=== PATIENT | male | born 1955 | race Caucasian/White ===

== ENCOUNTER → 2017-12-20 09:21 | Outpatient (CLI) | payer MEDICARE, OTHER, SELFPAY ==
[2017-12-20 10:17] LABS: Microalbumin:Creatinine Ratio 70.7 mg/g CRE (<30 mg/g CRE)
[2017-12-20 10:21] LABS: Hemoglobin A1c 8.9 % (4.2-6.3)
[2017-12-20 10:29] LABS: AST(SGOT) 16 U/L (15-37); Alanine Aminotransfer ALT/SGPT 16 U/L (16-61); Albumin, Serum 3.5 g/dL (3.2-5.0); Alkaline Phosphatase 127 U/L (45-117); Anion Gap 6 (5-15); BUN 17 mg/dL (7-18); BUN/Creat Ratio 17.6 RATIO (10-20); Calcium,Total 8.9 mg/dL (8.5-10.1); Chloride 107 mmol/L (98-107); Cholesterol 164 mg/dL (200); Creatinine, Serum 0.96 mg/dL (0.70-1.30); EST Glomerular Filtration Rate 83 mL/min (>60); Est Glom Filt Rate - Afr Amer 101 mL/min (>60); Globulin 3.6 g/dL (2.2-4.2); Glucose 247 mg/dL (74-106); High Density Lipoprotein 61 mg/dL; Potassium 4.2 mmol/L (3.5-5.1); Protein, Total 7.1 g/dL (6.4-8.2); Sodium Level 140 mmol/L (136-145); Triglycerides 59 mg/dL; Very Low Density Lipoprotein 12 mg/dL (5-40)
== END ==
PROVIDERS: Family Provider Internal Medicine; PCP Internal Medicine; Visit Provider Nurse Practitioner
DX: E11.9 Type 2 diabetes mellitus without complications (principal)
CPT/HCPCS: 36415; 80053; 80061; 82043; 82570; 83036

== ENCOUNTER → 2018-03-23 08:38 | Outpatient (CLI) | payer MEDICARE, OTHER, SELFPAY ==
[2018-03-23 10:00] LABS: Hemoglobin A1c 7.8 % (4.2-6.3)
[2018-03-23 10:03] LABS: Microalbumin,Random Urine 71.1 mg/L (NO RANGE EST.); Microalbumin:Creatinine Ratio 84.6 mg/g CRE (<30 mg/g CRE)
[2018-03-23 10:08] LABS: AST(SGOT) 26 U/L (15-37); Alanine Aminotransfer ALT/SGPT 27 U/L (16-61); Albumin, Serum 3.6 g/dL (3.2-5.0); Alkaline Phosphatase 101 U/L (45-117); Anion Gap 10 (5-15); BUN 16 mg/dL (7-18); BUN/Creat Ratio 20.3 RATIO (10-20); Chloride 106 mmol/L (98-107); Creatinine, Serum 0.79 mg/dL (0.70-1.30); EST Glomerular Filtration Rate 105 mL/min (>60); Est Glom Filt Rate - Afr Amer 127 mL/min (>60); Globulin 3.7 g/dL (2.2-4.2); Glucose 168 mg/dL (74-106); Potassium 4.5 mmol/L (3.5-5.1); Protein, Total 7.3 g/dL (6.4-8.2); Sodium Level 141 mmol/L (136-145)
== END ==
PROVIDERS: Family Provider Internal Medicine; PCP Internal Medicine; Visit Provider Nurse Practitioner
DX: E11.8 Type 2 diabetes mellitus with unspecified complications (principal); Z79.4 Long term (current) use of insulin
CPT/HCPCS: 36415; 80053; 82043; 82570; 83036

== ENCOUNTER → 2018-06-20 08:23 | Outpatient (CLI) | payer MEDICARE, OTHER, SELFPAY ==
[2018-06-20 09:43] LABS: AST(SGOT) 16 U/L (15-37); Alanine Aminotransfer ALT/SGPT 23 U/L (16-61); Albumin, Serum 3.6 g/dL (3.2-5.0); Alkaline Phosphatase 133 U/L (45-117); Anion Gap 4 (5-15); BUN 20 mg/dL (7-18); BUN/Creat Ratio 22.3 RATIO (10-20); Calcium,Total 8.8 mg/dL (8.5-10.1); Chloride 106 mmol/L (98-107); EST Glomerular Filtration Rate 91 mL/min (>60); Est Glom Filt Rate - Afr Amer 110 mL/min (>60); Globulin 3.5 g/dL (2.2-4.2); Glucose 281 mg/dL (74-106); Potassium 4.4 mmol/L (3.5-5.1); Protein, Total 7.1 g/dL (6.4-8.2); Sodium Level 140 mmol/L (136-145)
[2018-06-20 09:44] LABS: Microalbumin,Random Urine 54.2 mg/L (NO RANGE EST.); Microalbumin:Creatinine Ratio 45.5 mg/g CRE (<30 mg/g CRE)
[2018-06-20 09:45] LABS: Hemoglobin A1c 8.5 % (4.2-6.3)
--- OUTSIDE RECORDS SUMMARY | 2018-08-15 08:06 | XMS RPT_ITS ---
:1955 Author Organization OHIP Support Name Relationship Address Phone BRUCE RICHARDS Unavailable [address] + [place] [address] POWER, STEVIE Unavailable [address] + [place] [address] R Unavailable Unavailable Unavailable BRUCE RICHARDS Unavailable [address] + [place] [address] POWER, STEVIE Unavailable [address] + [place] [address] R Unavailable Unavailable Unavailable BRUCE RICHARDS Unavailable [address] + [place] [address] POWER, STEVIE Unavailable [address] + [place] [address] R Unavailable Unavailable Unavailable BRUCE RICHARDS Unavailable [address] + [place] [address] POWER, STEVIE Unavailable [address] + [place] [address] R Unavailable Unavailable Unavailable BRUCE RICHARDS Unavailable [address] + [place] [address] POWER, STEVIE Unavailable [address] + [place] [address] R Unavailable Unavailable Unavailable BRUCE RICHARDS Unavailable [address] + [place] [address] POWER, STEVIE Unavailable [address] + [place] [address] R Unavailable Unavailable Unavailable BRUCE RICHARDS Unavailable [address] + [place] [address] POWER, STEVIE Unavailable [address] + [place] [address] R Unavailable Unavailable Unavailable BRUCE RICHARDS Unavailable [address] + [place] [address] POWER, STEVIE Unavailable [address] [facility] [address] + [place] [address] R Unavailable Unavailable Unavailable Care Team Providers Name Role Phone TALAMPAS, SON D Attending Unavailable TALAMPAS, SON D Referring Unavailable TALAMPAS, SON D Referring Unavailable Talampas, Son Primary Care Unavailable Madrid, Santiago Attending Unavailable Shook, Mildred White ATMOSPHERIC SCIENCES PROFESSOR-C Attending Unavailable Talampas, Son Referring Unavailable Shook, Mildred White ATMOSPHERIC SCIENCES PROFESSOR-C Attending Unavailable Shook, Mildred White ATMOSPHERIC SCIENCES PROFESSOR-C Referring Unavailable Talampas, Son Primary Care Unavailable Shook, Mildred White ATMOSPHERIC SCIENCES PROFESSOR-C Attending Unavailable Talampas, Son Referring Unavailable Shook, Mildred White ATMOSPHERIC SCIENCES PROFESSOR-C Attending Unavailable Shook, Mildred White ATMOSPHERIC SCIENCES PROFESSOR-C Referring Unavailable Talampas, Son Primary Care Unavailable Shook, Mildred hWite ATMOSPHERIC SCIENCES PROFESSOR-C Attending Unavailable Talampas, Son Referring Unavailable Talampas, Son Primary Care Unavailable Shook, Mildred White ATMOSPHERIC SCIENCES PROFESSOR-C Attending Unavailable Shook, Mildred White ATMOSPHERIC SCIENCES PROFESSOR-C Referring Unavailable Talampas, Son Primary Care Unavailable Shook, Mildred White ATMOSPHERIC SCIENCES PROFESSOR-C Attending Unavailable Talampas, Son Referring Unavailable PROBLEMS PROBLEMS DATE TYPE CONDITION / CODE ATTENDING STATUS SOURCE 11/17/2015 Active Type 2 diabetes NA Active [facility] mellitus with other [place] diabetic kidney Repository complication / E11.29(ICD-10) 11/17/2015 Active Proteinuria, NA Active [facility] unspecified / [place] R80.9(ICD-10) Repository 11/17/2015 Active penitentiary (current) NA Active [facility] use of insulin / [place] Z79.4(ICD-10) Repository 06/19/2018 Active Other [facility] [employer] NA Active [facility] (current) drug [place] therapy / Repository Z79.899(ICD-10) 03/13/2018 Unknown E11.9 - Type 2 Mildred Siddiqui Active [place] diabetes mellitus ATMOSPHERIC SCIENCES PROFESSOR-C [facility] complications / Repository E11.9(ICD-10) 07/24/2017 Unknown J20.8 - Acute [place], Santiago Active [place] bronchitis due to [facility] other specified Hospital organisms / Repository J20.8(ICD-10) PROCEDURES PROCEDURES No Procedure Records FoundRESULTS RESULTS PROGRESS Observed: 06/26/2018 Status: COMPLETED Source: [place] 9:03 AM [facility] ID: [id number] Author: Son Yanes Service: (none) Author Type: Physician Type: Progress Notes Filed: 06/30/2018 3:17 PM Note Text: Patient presents with: Recheck Imm/Inj: Flu Vaccine SUBJECTIVE: Jing Richards is a 62 year old year old gentleman here today for 6 month follow up appointment for review of medical conditions. Saw BJ yesterday--HgA1C was up. Sugars at home were up. In summer was riding bicycle a lot. Has membership at [employer]--lately has not been going because of schedule. Past week with lower back pain. Getting a little better. Week prior of gi had done a lot of yardwork. Pain started the following week. Taking ibuprofen then Aleve. PAST MEDICAL HISTORY Diagnosis Date - Benign neoplasm of colon - BPH without obstruction/lower urinary tract symptoms 04/01/2012 - Carpal tunnel syndrome - Degeneration of lumbar or lumbosacral intervertebral disc 05/02/2008 - Essential hypertension, benign - Glaucoma - Hemorrhage of rectum and anus - Hyperplasia of prostate - Pure hypercholesterolemia Gets labs done at [facility] for MIQUEL Siddiqui - Type II or unspecified type diabetes mellitus without mention of complication, uncontrolled Continues to follow with MIQUEL Siddiqui, [facility]/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--gets labs through [facility] - Unspecified glaucoma(365.9) Current Outpatient Prescriptions: enalapril (VASOTEC) 20 mg tablet Take 1 tablet by mouth twice daily. tamsulosin ER (FLOMAX) 0.4 mg cap Take 2 capsules by mouth daily at bedtime. insulin regular human (HUMULIN R REGULAR U-100 INSULN) 100 unit/mL injection Inject 25 Units subcutaneously daily before dinner. (supper) (MIQUEL Siddiqui manages) metoprolol succinate ER (TOPROL XL) 25 mg 24 hr tablet Take 1 tablet by mouth once daily. simvastatin (ZOCOR) 40 mg tablet TAKE ONE TABLET BY MOUTH ONCE DAILY AT BEDTIME Insulin Syringe-Needle U-100 (BD INSULIN SYRINGE UF II) 0.5 mL 31 gauge x 5/16 syrg Use as directed with insulin injections three times daily insulin 70/30 NPH/regular units/mL (HUMULIN 70/30, NOVOLIN 70/30) Inject 35 Units subcutaneously daily with breakfast. (MIQUEL Siddiqui managing) insulin NPH human (NOVOLIN N, HUMULIN N) injection Inject 5 Units subcutaneously daily at bedtime. (MIQUEL Siddiqui manages) albuterol HFA (VENTOLIN HFA) 90 mcg/actuation inhaler Inhale 2 Puffs as instructed every 4 hours as needed for Wheezing/Shortness of Breath. Blood Sugar Diagnostic, Drum (ACCU-CHEK COMPACT TEST) Strp Testing 2-3 times daily lancets(FREESTYLE LANCETS) Use as directed. XALATAN 0.005 % EYE DROPS once daily both eyes COSOPT 2 %-0.5 % EYE DROPS twice daily both eyes ASPIRIN 81 MG TAB Take one (1) tablet daily . COMPOUNDED PRESCRIPTION Insulin syringes 0.3cc 31 G use as directed B COMPLEX CAP take one tablet daily MULTIVITAMIN TAB Take one(1) tablet daily. No current facility-administered medications for this visit. OBJECTIVE: BP 136/58 (BP Site: Left Arm, BP Position: Sitting, BP Cuff Size: Regular Adult) Pulse 68 Resp 12 Wt 81.2 kg (179 lb) SpO2 96% BMI 32.74 kg/m? Patient is alert, oriented times 3, no apparent distress, affect is bright, reactive. Last 5 Encounter BP Readings: Date: BP: 06/26/2018 136/58 07/24/2017 168/83[#1 (from Extended Vitals)[ 06/06/2017 139/64[#6 (from Extended Vitals)[ 05/23/2017 145/75 05/23/2017 150/76 Last 5 Encounter Wt Readings: Date: Wt: 06/26/2018 81.2 kg (179 lb) 05/23/2017 82.6 kg (182 lb 1.6 oz) 05/23/2017 82.6 kg (182 lb 3.2 oz) 05/07/2017 82.1 kg (181 lb) 11/01/2016 83 kg (183 lb) 06/26/18 0835 06/26/18 0920 BP: 136/58 132/60 BP Site: Left Arm BP Position: Sitting BP Cuff Size: Regular Adult Pulse: 68 Resp: 12 SpO2: 96% Weight: 81.2 kg (179 lb) Heart: Regular rate, rhythm, no murmurs, gallops, rubs. Lungs: Clear to auscultation, bilaterally, breathing non labored. Ext: No cyanosis, clubbing, or edema. Feet:Shoes and socks removed, No deformities, ulcers, calluses, normal distal pulses and sensitive to 10 gm monofilament Component Latest Ref Rng AND Units 10/28/2016 05/07/2017 03/23/2018 06/19/2018 Glucose 74 - 99 mg/dL 143 (H) 246 (H) 253 (H) BUN 9 - 24 mg/dL 12 16 15 Creatinine 0.73 - 1.22 mg/dL 0.87 0.81 0.73 Sodium 136 - 144 mmol/L 142 135 (L) 138 Potassium 3.7 - 5.1 mmol/L 5.0 4.6 5.0 Chloride 97 - 105 mmol/L 105 98 102 CO2 22 - 30 mmol/L 25 28 25 Anion Gap 9 - 18 mmol/L 12 9 11 Calcium 8.5 - 10.2 mg/dL 9.7 9.6 9.7 eGFR- >60 >60 >60 eGFR-All Other Races . >60 >60 >60 Triglyceride <150 mg/dL 78 77 Cholesterol, Total <200 mg/dL 186 172 HDL Cholesterol >39 mg/dL 74 60 VLDL Cholesterol <30 mg/dL 16 15 LDL Cholesterol <100 mg/dL 96 97 Fasting Time hrs 10 9 TC:HDL Ratio <5.10 2.51 2.87 LDL:HDL Ratio <2.54 1.30 1.62 Non HDL Cholesterol <130 mg/dL 112 112 Creatinine, Ur Random (UCRR) 20 - 300 mg/dL 56.8 113.0 Albumin, Urine Random 0.0 - 23.0 mg/L 155.1 (H) 48.5 (H) Albumin/Creat Ratio 0 - 30 mg/g 273 (H) 43 (H) Hemoglobin A1C 4.3 - 5.6 % 8.4 (H) 8.7 (H) 7.8 (A) 8.4 (H) Estimated Average Glucose mg/dL 194 203 194 ASSESSMENT AND PLAN: Encounter Diagnosis ICD-10-CM 1. Essential hypertension, benign I10 COMP METABOLIC PANEL CBC 2. Pure hypercholesterolemia E78.00 LIPID PANEL BASIC 3. Type 2 diabetes mellitus with microalbuminuria, with long- term current use of insulin (HCC) E11.29 COMP METABOLIC PANEL R80.9 HGB A1C Z79.4 ALBUMIN/CREAT RATIO RND UR HGB A1C BASIC METABOLIC PNL 4. Acute midline low back pain without sciatica M54.5 improving since week after Thanksgiving 5. Need for vaccination Z23 INFLUENZA VACCINE QUADRIVALENT AGE 3 YRS PLUS + IM Overall doing well. Will get sugars down with getting back to some regular exercise. Keep up healthy diet. Was able to get HgA1C <8 without adjust meds much before--exercise helps control sugars much better. Continues to follow up with Stella Owen CNP. Further evaluation and treatment as indicated. Lipids fine. BP fine <140/90. BP close to ideal goals. Continue present management. Further evaluation and treatment as indicated. Will get refills to correct pharmacy after gets insurance cards. Discussed that does not need to get labs at [facility] and here. Can choose on site. BJ and I can share labs. Above issues addressed with patient. Patient involved in shared decision making for management of medical issues. History and medications reviewed. Epic updated as needed Refills taken care of and meds adjusted as indicated after reviewed history, exam and labs. Health Maintenance reviewed. Updated record and/or ordered tests as recorded. Encouraged on efforts at healthy diet and regular exercise and adequate sleep. The majority of the visit was spent counseling and/or coordinating care for the patient. Ikib-he-rqht time was at least 20 minutes. Son Yanes MD PROGRESS Observed: 06/26/2018 Status: COMPLETED Source: [place] 8:[address] [facility] [place] RE[facility]IT[facility] ID: [id number] Author: Rudy Camarena Service: (none) Author Type: (none) Type: Progress Notes Filed: 06/30/2018 3:17 PM Note Text: 62 year old male here for INACTIVATED INFLUENZA VACCINE. [id number] Season Patient is identified by name and date of : Yes [] CONTRAINDICATIONS color enhanced section Age less than 6 months? No Allergy to eggs, chicken, chicken feathers, or chicken dander? No Allergy to thimerosal (a preservative) or formaldehyde, gelatin? No History of severe reaction to any vaccine component or a previous dose of influenza vaccination? No History of Guillain-[place] Syndrome within 6 weeks after a previous influenza vaccine? No Patient is not moderately or severely ill? No Current temperature greater or equal to 100.4F? No History of Bone Marrow Transplant prior 6 months or solid organ transplant in the past 3 months ? No History of fainting after a prior injection or medical procedure? No- ? If patient has fainted in the past, the CDC recommends sitting or lying down for 15 minutes after the vaccination. [] VERIFICATION color enhanced section Was the answer Yes for any of the above contraindications? No contraindications present. Acceptable to proceed with vaccine. Patient/guardian agrees the above answers are true to the best of their knowledge? Yes Flu vaccine information sheet given? Yes See immunization activity in [facility] for details of immunizations adminstered today. Patient age: [age] year old For The [id number] Flu Season 6-35 months old: Fluzone 0.25 ml - IM (Preservative Free) 3 years of age: Fluzone 0.5 ml - IM (Preservative Free) 3 years and older: Fluzone 0.5 ml- IM-(with Preservatives) 65+ years old: 2-49 years old Fluzone High-Dose 0.5 ml - IM (Preservative Free) FLUMIST- intranasal REMEMBER: If patient is less than 9 years of age and this is the first vaccine of Influenza to be received in any flu season, they should receive a second dose in one months time. CNOV Observed: 06/26/2018 Status: COMPLETED Source: [place] 8:20 AM [facility] REPOSITORY Office Visit (INTMWS) JING RICHARDS ([id number]) 1955 M Date Time Provider Department 06/26/18 8:20 AM SON YANES During your visit today, we recorded the following information about you: Pulse Respiration Blood pressure Weight 68/minute 12/minute 132/60 81.2 kg Rudy Camarena 06/30/2018 3:17 PM Signed 62 year old male here for INACTIVATED INFLUENZA VACCINE. Season Patient is identified by name and date of : Yes [] CONTRAINDICATIONS color enhanced section Age less than 6 months? No Allergy to eggs, chicken, chicken feathers, or chicken dander? No Allergy to thimerosal (a preservative) or formaldehyde, gelatin? No History of severe reaction to any vaccine component or a previous dose of influenza vaccination? No History of Guillain-[place] Syndrome within 6 weeks after a previous influenza vaccine? No Patient is not moderately or severely ill? No Current temperature greater or equal to 100.4F? No History of Bone Marrow Transplant prior 6 months or solid organ transplant in the past 3 months ? No History of fainting after a prior injection or medical procedure? No- ? If patient has fainted in the past, the CDC recommends sitting or lying down for 15 minutes after the vaccination. [] VERIFICATION color enhanced section Was the answer Yes for any of the above contraindications? No contraindications present. Acceptable to proceed with vaccine. Patient/guardian agrees the above answers are true to the best of their knowledge? Yes Flu vaccine information sheet given? Yes See immunization activity in [facility] for details of immunizations adminstered today. Patient age: [age] year old For The Flu Season 6-35 months old: Fluzone 0.25 ml - IM (Preservative Free) 3 years of age: Fluzone 0.5 ml - IM (Preservative Free) 3 years and older: Fluzone 0.5 ml- IM-(with Preservatives) 65+ years old: 2-49 years old Fluzone High-Dose 0.5 ml - IM (Preservative Free) FLUMIST- intranasal REMEMBER: If patient is less than 9 years of age and this is the first vaccine of Influenza to be received in any flu season, they should receive a second dose in one months time. Son Yanes MD 06/30/2018 3:17 PM Signed Patient presents with: Recheck Imm/Inj: Flu Vaccine SUBJECTIVE: Jing Richards is a 62 year old year old gentleman here today for 6 month follow up appointment for review of medical conditions. Saw BJ yesterday--HgA1C was up. Sugars at home were up. In summer was riding bicycle a lot. Has membership at [employer]--lately has not been going because of schedule. Past week with lower back pain. Getting a little better. Week prior of Thanksgiving had done a lot of yardwork. Pain started the following week. Taking ibuprofen then Aleve. PAST MEDICAL HISTORY Diagnosis Date - Benign neoplasm of colon - BPH without obstruction/lower urinary tract symptoms 04/01/2012 - Carpal tunnel syndrome - Degeneration of lumbar or lumbosacral intervertebral disc 05/02/2008 - Essential hypertension, benign - Glaucoma - Hemorrhage of rectum and anus - Hyperplasia of prostate - Pure hypercholesterolemia Gets labs done at [facility] for MIQUEL Siddiqui - Type II or unspecified type diabetes mellitus without mention of complication, uncontrolled Continues to follow with MIQUEL Siddiqui [facility] [facility]/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--gets labs through [facility] - Unspecified glaucoma(365.9) Current Outpatient Prescriptions: enalapril (VASOTEC) 20 mg tablet Take 1 tablet by mouth twice daily. tamsulosin ER (FLOMAX) 0.4 mg cap Take 2 capsules by mouth daily at bedtime. insulin regular human (HUMULIN R REGULAR U-100 INSULN) 100 unit/mL injection Inject 25 Units subcutaneously daily before dinner. (supper) (MIQUEL Siddiqui manages) metoprolol succinate ER (TOPROL XL) 25 mg 24 hr tablet Take 1 tablet by mouth once daily. simvastatin (ZOCOR) 40 mg tablet TAKE ONE TABLET BY MOUTH ONCE DAILY AT BEDTIME Insulin Syringe-Needle U-100 (BD INSULIN SYRINGE UF II) 0.5 mL 31 gauge x 5/16 syrg Use as directed with insulin injections three times daily insulin 70/30 NPH/regular units/mL (HUMULIN 70/30, NOVOLIN 70/30) Inject 35 Units subcutaneously daily with breakfast. (MIQUEL Siddiqui managing) insulin NPH human (NOVOLIN N, HUMULIN N) injection Inject 5 Units subcutaneously daily at bedtime. (MIQUEL Siddiqui manages) albuterol HFA (VENTOLIN HFA) 90 mcg/actuation inhaler Inhale 2 Puffs as instructed every 4 hours as needed for Wheezing/Shortness of Breath. Blood Sugar Diagnostic, Drum (ACCU-CHEK COMPACT TEST) Strp Testing 2-3 times daily lancets(FREESTYLE LANCETS) Use as directed. XALATAN 0.005 % EYE DROPS once daily both eyes COSOPT 2 %-0.5 % EYE DROPS twice daily both eyes ASPIRIN 81 MG TAB Take one (1) tablet daily . COMPOUNDED PRESCRIPTION Insulin syringes 0.3cc 31 G use as directed B COMPLEX CAP take one tablet daily MULTIVITAMIN TAB Take one(1) tablet daily. No current facility-administered medications for this visit. OBJECTIVE: BP 136/58 (BP Site: Left Arm, BP Position: Sitting, BP Cuff Size: Regular Adult) Pulse 68 Resp 12 Wt 81.2 kg (179 lb) SpO2 96% BMI 32.74 kg/m? Patient is alert, oriented times 3, no apparent distress, affect is bright, reactive. Last 5 Encounter BP Readings: Date: BP: 06/26/2018 136/58 07/24/2017 168/83[#1 (from Teamly Vitals)[ 06/06/2017 139/64[#6 (from reQwips)[ 05/23/2017 145/75 05/23/2017 150/76 Last 5 Encounter Wt Readings: Date: Wt: 06/26/2018 81.2 kg (179 lb) 05/23/2017 82.6 kg (182 lb 1.6 oz) 05/23/2017 82.6 kg (182 lb 3.2 oz) 05/07/2017 82.1 kg (181 lb) 11/01/2016 83 kg (183 lb) 06/26/18 0835 06/26/18 0920 BP: 136/58 132/60 BP Site: Left Arm BP Position: Sitting BP Cuff Size: Regular Adult Pulse: 68 Resp: 12 SpO2: 96% Weight: 81.2 kg (179 lb) Heart: Regular rate, rhythm, no murmurs, gallops, rubs. Lungs: Clear to auscultation, bilaterally, breathing non labored. Ext: No cyanosis, clubbing, or edema. Feet:Shoes and socks removed, No deformities, ulcers, calluses, normal distal pulses and sensitive to 10 gm monofilament Component Latest Ref Rng AND Units 10/28/2016 05/07/2017 03/23/2018 06/19/2018 Glucose 74 - 99 mg/dL 143 (H) 246 (H) 253 (H) BUN 9 - 24 mg/dL 12 16 15 Creatinine 0.73 - 1.22 mg/dL 0.87 0.81 0.73 Sodium 136 - 144 mmol/L 142 135 (L) 138 Potassium 3.7 - 5.1 mmol/L 5.0 4.6 5.0 Chloride 97 - 105 mmol/L 105 98 102 CO2 22 - 30 mmol/L 25 28 25 Anion Gap 9 - 18 mmol/L 12 9 11 Calcium 8.5 - 10.2 mg/dL 9.7 9.6 9.7 eGFR- >60 >60 >60 eGFR-All Other Races . >60 >60 >60 Triglyceride <150 mg/dL 78 77 Cholesterol, Total <200 mg/dL 186 172 HDL Cholesterol >39 mg/dL 74 60 VLDL Cholesterol <30 mg/dL 16 15 LDL Cholesterol <100 mg/dL 96 97 Fasting Time hrs 10 9 TC:HDL Ratio <5.10 2.51 2.87 LDL:HDL Ratio <2.54 1.30 1.62 Non HDL Cholesterol <130 mg/dL 112 112 Creatinine, Ur Random (UCRR) 20 - 300 mg/dL 56.8 113.0 Albumin, Urine Random 0.0 - 23.0 mg/L 155.1 (H) 48.5 (H) Albumin/Creat Ratio 0 - 30 mg/g 273 (H) 43 (H) Hemoglobin A1C 4.3 - 5.6 % 8.4 (H) 8.7 (H) 7.8 (A) 8.4 (H) Estimated Average Glucose mg/dL 194 203 194 ASSESSMENT AND PLAN: Encounter Diagnosis ICD-10-CM 1. Essential hypertension, benign I10 COMP METABOLIC PANEL CBC 2. Pure hypercholesterolemia E78.00 LIPID PANEL BASIC 3. Type 2 diabetes mellitus with microalbuminuria, with long- term current use of insulin (HCC) E11.29 COMP METABOLIC PANEL R80.9 HGB A1C Z79.4 ALBUMIN/CREAT RATIO RND UR HGB A1C BASIC METABOLIC PNL 4. Acute midline low back pain without sciatica M54.5 improving since week after Thanksgiving 5. Need for vaccination Z23 INFLUENZA VACCINE QUADRIVALENT AGE 3 YRS PLUS + IM Overall doing well. Will get sugars down with getting back to some regular exercise. Keep up healthy diet. Was able to get HgA1C <8 without adjust meds much before--exercise helps control sugars much better. Continues to follow up with Stella Owen CNP. Further evaluation and treatment as indicated. Lipids fine. BP fine <140/90. BP close to ideal goals. Continue present management. Further evaluation and treatment as indicated. Will get refills to correct pharmacy after gets insurance cards. Discussed that does not need to get labs at [facility] and here. Can choose on site. BJ and I can share labs. Above issues addressed with patient. Patient involved in shared decision making for management of medical issues. History and medications reviewed. Epic updated as needed Refills taken care of and meds adjusted as indicated after reviewed history, exam and labs. Health Maintenance reviewed. Updated record and/or ordered tests as recorded. Encouraged on efforts at healthy diet and regular exercise and adequate sleep. The majority of the visit was spent counseling and/or coordinating care for the patient. Rbca-cu-lrpw time was at least 20 minutes. Son Yanes MD Referring Provider: SELF [200] Allergies As of Date: 06/26/2018 (No Known Allergies) Date Reviewed: 06/26/2018 Reviewed by: Rudy Camarena - Fully Assessed Reason for Visit: Recheck [92] Imm/Inj [58] Cmt: Flu Vaccine Reason For Visit History Recorded Primary Visit Diagnosis:Essential hypertension, benign [I10] Other Visit Diagnoses:Pure hypercholesterolemia [E78.00] Type 2 diabetes mellitus with microalbuminuria, with long-term current use of insulin (HCC) [E11.29, R80.9, Z79.4] Acute midline low back pain without sciatica [M54.5] Comment:improving since week after Thanksgiving Need for vaccination [Z23] Order(s):INFLUENZA VACCINE QUADRIVALENT AGE 3 YRS PLUS + IM [[id number]] Order #: [id number] enalapril (VASOTEC) 20 mg tabletTake 1 tablet by mouth twice daily.Disp: 60 tabletRfl: 0 COMP METABOLIC PANEL [SQCMP] Order #: [id number] FUTURE CBC [SQCBC] Order #: [id number] FUTURE LIPID PANEL BASIC [SQLIPB] Order #: [id number] FUTURE HGB A1C [DVNCH7A] Order #: [id number] FUTURE ALBUMIN/CREAT RATIO RND UR [SQUACR] Order #: [id number] FUTURE HGB A1C [[id number]] Order #: [id number] FUTURE BASIC METABOLIC PNL [SQBMP] Order #: [id number] FUTURE Prescriptions as of 06/26/2018 Sig: ENALAPRIL MALEATE 20 MG TABLET Take 1 tablet by mouth twice * TAMSULOSIN 0.4 MG CAPSULE Take 2 capsules by mouth zach* INSULIN U-100 REGULAR HUMAN 1* Inject 25 Units subcutaneousl* METOPROLOL SUCCINATE ER 25 MG* Take 1 tablet by mouth once d* SIMVASTATIN 40 MG TABLET TAKE ONE TABLET BY MOUTH ONCE* INSULIN SYRINGE U-100 WITH NE* Use as directed with insulin * INSULIN HUMAN U-100 NPH-REGUL* Inject 35 Units subcutaneousl* INSULIN NPH ISOPHANE U-100 HU* Inject 5 Units subcutaneously* ALBUTEROL SULFATE HFA 90 MCG/* Inhale 2 Puffs as instructed * BLOOD SUGAR DIAGNOSTIC, DRUM-* Testing 2-3 times daily * FREESTYLE LANCETS 28 GAUGE Use as directed. * XALATAN 0.005 % EYE DROPS once daily both eyes * COSOPT 22.3 MG-6.8 MG/ML EYE * twice daily both eyes * ASPIRIN 81 MG TABLET Take one (1) tablet daily . * COMPOUNDED PRESCRIPTION Insulin syringes 0.3cc 31 G u* * B COMPLEX CAPSULE take one tablet daily * MULTIVITAMIN TABLET Take one(1) tablet daily. Medication notes this encounter METOPROLOL SUCCINATE ER 25 MG TABLET,EXTENDED RELEASE 24 HR >> Rudy Camarena 06/26/2018 8:28 AM >> RUDY CAMARENA Jun 26, 2018 8:28 AM duplicate Problem List As Of Date 06/26/2018 Noted Resolved Diabetes mellitus (HCC) [E11.9] 11/17/2015 More... BENIGN HYPERTENSION [I10] PURE HYPERCHOLESTEROLEM [E78.00] CARPAL TUNNEL SYNDROME [G56.00] GLAUCOMA NOS [H40.9] RECTAL AND ANAL HEMORRHAGE [K62.5] BENIGN NEOPLASM LG BOWEL [D12.6] INVALID FOR* GASTROINTEST HEMORR NOS [K92.2] INVALID FOR* INT HEMORRHOID W/O COMPL [K64.8] INVALID FOR* LUMB/LUMBOSAC DISC DEGEN [M51.37] INVALID FOR* SCIATICA [M54.30] INVALID FOR* BPH with obstruction/lower urinary tract sympto*INVALID FOR* Type 2 diabetes mellitus with microalbuminuria,*INVALID FOR* History of colonic polyps [Z86.010] INVALID FOR* More... Diverticulosis of large intestine without hemor*INVALID FOR* More... Prescriptions ordered this encounter Disp Refills Start End ENALAPRIL MALEATE 20 MG TABLET 60 t* 0 06/26/2018 Route: ORAL Sig: Take 1 tablet by mouth twice daily. Medications Discontinued During This Encounter metoprolol succinate ER (TOPROL XL) * 30 t* 5 04/11/2018 06/26/2018 Cmt: Please consider 90 day supplies to promote better adherence Sig: TAKE ONE TABLET BY MOUTH ONCE DAILY Disc: Reason for discontinue is not on file. enalapril (VASOTEC) 20 mg tablet 30 t* 0 06/17/2018 06/26/2018 Route: ORAL Sig: Take 1 tablet by mouth twice daily. Disc: Reason for discontinue is not on file. Disposition: Return in about 6 months (around 12/25/2018) for 6 months follow up, With labs prior. Follow-up and Disposition History Recorded Encounter Status:Closed by SON YANES MD on 06/30/18 ENDOCRINOLOGY VISIT Observed: 06/25/2018 Status: F Source: CHIGNIK LAGOON REPORT 8:27 PM [facility] REPOSITORY [facility] [address] [place] [address]. [address] [place] [address] OFFICE VISIT Date of Service: 06/25/18 MR#: [id number] Acct: [id number] Name: JING RICHARDS Rep #: [id number] : 1955 Provider: Mildred Siddiqui NP Age/Sex: 62/M Location: [facility] Status: Signed HPI History of present illness Jing Richards is a 62 yr old male who presents for follow up of diabetes type 2. Continues on 70/30 insulin in am at 33 unit dose, 23 units of regular insulin for diner, and 5 units N at bedtime. Reports BG readings have been varied but he also states he has had a few low BG in the night. Does routine exercise. Monitors diet fairly close At time of visit Pt denies symptoms of hypertensive emergency. and hypotension Pt denies symptoms of hyerglycemia or symptoms of hypoglycemia Pt denies medication side effects. Since our last visit he denies excessive thirst, increased frequency of urination, chest pain or dyspnea. Follows a diabetic diet, Is compliant with medication and is tolerating without side effects. HYPOGLYCEMIA Aware of hypoglycemia: yes Able to self treatment hypoglycemia: yes Frequent low BG: No Has supply of glucagon: yes Diet 3 meals daily Occ diet pop No I/C ratio SMBG Checks at least 4 times daily BG 70-200 Average 150-180 Exam Const General: comfortable, no acute distress Nutritional Appearance: well nourished Orientation: oriented x3 HENMT Head: normal to inspection, atraumatic Ears: hearing grossly normal bilaterally Mouth: oral mucosae normal, moist mucous membranes Teeth and gingiva: dentition normal Eyes General: appearance normal, both eyes and all related structures Eyelids: eyelids normal Conjunctivae: conjunctivae normal Sclera: sclerae normal Pupils: PERRL Neck Neck: normal visual inspection, full ROM Neck mass: No Chest Chest palpation AND inspection: deferred Resp Effort AND Inspection: normal respiratory effort, able to speak in complete sentences, symmetric chest movement Auscultation: Bilateral: Clear to Auscultation Cardio Rate: regular rate Heart Sounds: S1 normal, S2 normal GI Inspection: normal to inspection Auscultation: normal bowel sounds Palpation: soft, no guarding Skin General: no rashes or lesions noted Wounds: no wounds Diabetic Foot Pulses: L dorsalis pedis pulse: normal, R dorsalis pedis pulse: normal Monofilament test: Left foot: normal, Right foot: normal Neuro General: gait normal Cranial Nerves: CN's II-XI intact bilaterally Speech: speech normal Motor: muscle tone normal throughout Extrem General: normal to inspection, normal capillary refill Psych Appearance: well kempt Mental Status: mental status grossly normal Mood: congruent mood Affect: normal affect Speech and Movement: speech and movement normal Attitude: cooperative Thought Process: normal Judgment: judgment good Type: type 2, insulin-requiring Glucose control symptoms: Reports high post-meal glucose Weight and fatigue symptoms: Denies snoring Cardiopulmonary symptoms: Denies chest pain at rest, dyspnea on exertion, lightheadedness or myalgias GI symptoms: Denies constipation, diarrhea, nausea/dyspepsia or vomiting Skin and extremity symptoms: Denies erectile dysfunction Other symptoms: Denies blurry vision or change in vision Pertinent visit history: Denies recent visit to ER, recent hospital admission or recent DKA Self monitoring: Yes Percentage of fasting blood glucose within goal: >50% of the time Dietary compliance: Diabetes: good Diabetes education in past year: Yes Sick day education - understands ketone testing: Yes Physical activity: regular Intake Vital Signs06/25/18 Height 5 ft 7 in 06/25/18 Weight: 178 lb 06/25/18 Body Mass Index (BMI) 27.8 06/25/18 Blood Pressure 138/80 H H 06/25/18 Blood Pressure Location Lt popliteal 06/25/18 Blood Pressure Position Sitting Intake Visit Reasons: Diabetes 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 Accompanied by: Self Allergies No Known Allergies Allergy (Unverified 06/25/18 11:01) Medications Dorzolamide 2% [Trusopt] BC DAILY 10/06/15 [History Confirmed 06/25/18] Latanoprost 0.005% [Xalatan Opthalmic] 1 drp DAILY 10/06/15 [History Confirmed 06/25/18] Simvastatin [Zocor] 40 mg PO DAILY 10/06/15 [History Confirmed 06/25/18] Tamsulosin HCl [Flomax] 0.4 mg PO DAILY 10/06/15 [History Confirmed 06/25/18] Timolol [Betimol] BID 10/06/15 [History Confirmed 06/25/18] albuterol sulfate HFA 90 mcg/actuation aerosol inhaler 2 puff INHALATION Q4H PRN g 07/03/17 [History Confirmed 06/25/18] aspirin 81 mg tablet,delayed release 81 mg PO QDAY 07/03/17 [History Confirmed 06/25/18] blood sugar diagnostic strips See Dose Instructions .ROUTE .MEDSUPPLY #20 ea 07/03/17 [History Confirmed 06/25/18] blood-glucose meter See Dose Instructions .ROUTE .MEDSUPPLY #1 ea 07/03/17 [History Confirmed 06/25/18] insulin NPH isophane U- 100 human 100 unit/mL subcutaneous suspension 5 unit SC QDAY ml 07/03/17 [History Confirmed 06/25/18] insulin U- 100 regular human 100 unit/mL injection solution 25 unit SC QPM ml 07/03/17 [History Confirmed 06/25/18] insulin human U-100 NPH-regulr 70-30 mix 100 unit/mL subcutaneous susp 35 unit SC QDAY ml 07/03/17 [History Confirmed 06/25/18] insulin syringe-needle U-100 0.5 mL 31 gauge x 12/05 See Dose Instructions .ROUTE .MEDSUPPLY #10 ea 07/03/17 [History Confirmed 06/25/18] multivitamin capsule 1 cap PO QAM 07/03/17 [History Confirmed 06/25/18] vitamin B complex capsule 1 cap PO QDAY 07/03/17 [History Confirmed 06/25/18] Enalapril Maleate 20 mg PO BID 07/24/17 [History Confirmed 06/25/18] Hydrocodone Bit/Homatropine [Hycodan Syrup] 5 ml PO Q6H PRN PRN #60 udc 07/24/17 [Rx Confirmed 06/25/18] Nurse's Note: blood sugars : low : 40's high : 300's PFSH Medical History Asthma (Acute) Bilateral cataracts (Acute) Diabetes type 2, controlled (Acute) GERD (gastroesophageal reflux disease) (Acute) Glaucoma (Acute) Kidney stone (Acute) Vision problems (Acute) prostate problems (Acute) Surgical History H/O eye surgery (Acute) H/O skin graft (Acute) Family History Father Asthma Kidney disease Cancer Brother Heart disease Asthma Sister Heart disease Social History Smoking Status: Never smoker second hand exposure: No alcohol intake: never substance use type: does not use caffeine: No ROS Const Constitutional: No anorexia, body ache, chills, fatigue, fever(s), frequent falls, decreased energy, malaise, night sweats, weakness, weight change, sleep problems, abnormal sleep pattern, change in appetite, other, headache(s), snoring or excessive sweating Eyes Eyes: No blurry vision, change in vision, double vision, discharge, dry eyes, bulging eyes, floaters, visual disturbances, eye pain, light sensitivity, spots in vision, tunnel vision or other ENT ENT: No abnormal hearing, ear pain, ear discharge, ear pressure, hearing loss, tinnitus, dizziness/vertigo, balance problems, nosebleed/epistaxis, nasal congestion, nasal obstruction, nose pain, sinus pressure, sinus pain, nasal discharge, post nasal drip, headache(s), facial pain, dental pain, dry mouth, bad breath, hoarseness, lip swelling, mouth lesions, mouth pain, sore throat, tongue swelling, throat swelling, other, difficulty swallowing or neck pain Resp Respiratory: Positive for cough; no change in phlegm color, chest congestion, excessive phlegm production, hemoptysis, pain on inspiration, shortness of breath, pain with cough, snoring, stridor, wheezing or other Cardio Cardiology: No chest pain at rest, chest pain with exertion, leg pain with exertion, excessive sweating, shortness of breath, dyspnea on exertion, generalized swelling, irregular heart rhythm, lightheadedness, orthopnea, radiating jaw, neck or arm pain, fast heart rate, slow heart rate, palpitations or other Gastro GI: No abdominal pain, belching, bloating, change in bowel habits, change in stool character, coffee ground emesis, constipation, cramping, diarrhea, heartburn, difficulty swallowing, feeling full early, excessive flatus, incontinent of stools, Vomiting blood/hematemesis, blood in stool, loose stools, Black,tarry stools, nausea/dyspepsia, pain with swallowing, vomiting or other Genitourinary Male: Positive for urinary hesitancy; no difficulty urinating, burning urination, painful urination, urinary incontinence, urinary frequency, urinary urgency, urinary retention, blood in urine, Frequent nighttime urination/ nocturia, post void dribbling, suprapubic fullness, side pain, sexual problems, genital lesions, genital itching, erectile dysfunction, penile discharge, difficulty with ejaculations, blood in semen, scrotal swelling, testicle lump, testicle pain or other Musc Musculoskeletal: Positive for back pain; no abnormal walking, joint pain, deformity, joint swelling, limited range of motion, loss of height, muscle cramps, muscle weakness, decreased muscle mass, body aches, neck pain, numbness, radiating pain into limb, stiffness, tingling or other Skin Skin: No acne, hair loss, change in hair, nail changes, boil, change in skin color, dry skin, redness, excessive hair growth, yellowing of the skin, lesions, itching, rash, skin pain, skin ulcer, sores, skin swelling, wounds or other Breast Breast: No other Neuro Neurology: No frequent falls, weakness, visual disturbances, abnormal hearing, headache(s), abnormal walking, numbness or tingling Psych Psychiatric: No abnormal sleep pattern, No change in appetite Endo Endocrine: No fatigue, other or excessive sweating Aller/Imm Allergy/Immunologic: No lip swelling, tongue swelling, throat swelling, wheezing or itchy eyes Assessment AND Plan 1. Diabetic retinopathy without macular edema associated with type 2 diabetes mellitus, unspecified laterality, unspecified retinopathy severity E11.319 Plan Bg readings are varied. Appears diet is inconsistent. Reviewed carb counting with patient and need to keep consistent with mixed insulin. He will work on this for next review and we cand ecide if we need to replace mixed insulin with another insulin for his basal coverage. cost is an issue. Is exercising again. Bg are much better on his exercise days and he is able to note this with our review. Reviewed labs with patient. Orders Orders: 2. Hypertension associated with diabetes E11.59; I10 Plan Remains slightly elevated. Will take BP records to his PCP for review. Is taking his medication ad directed. Enc diet, weight loss, and sodium restriction. Patient Instructions Control portions Food selections should be healthy Choose more low carb vegetables Avoid snacks and desserts. Drink water Exercise daily Eat more fresh foods, not canned or processed Eat more slowly Plan Detail Additional Comments 1. Please schedule follow up in 3 months. 2. Lab work one week before appointment. 3. Discussed importance of regular exercise and recommend starting or continuing a regular exercise program for good health. 4. The patient was encouraged to lose weight for good health 5. The importance of monitoring blood sugar regularly was reviewed. 6. The importance of monitoring the HBA1c level regularly was reviewed. 7. The importance of prper foot care and regularly checking feet to prevent sores and loss of limbs was reviewed. 8. The importance of keeping BP at or below 130/80 to prevent stroke, heart attacks, kidney failure, blindness was reviewed. Spent approximately 30 minutes with patient with over 50% of time spent in discussion and counseling regarding medication adjustment, symptoms and treatment of hypoglycemia, diet adherence, and checking BG before driving. Coding Level of Care Code Off vis,est,level 4 Diagnoses Diabetic retinopathy without macular edema associated with type 2 diabetes mellitus, unspecified laterality, unspecified retinopathy severity E11.319 Diabetes mellitus type: type 2 Diabetic retinopathy severity: with unspecified retinopathy severity Diabetes mellitus macular edema: without macular edema Laterality: unspecified laterality Hypertension associated with diabetes E11.59; I10 06/25/182026 <Electronically signed by Mildred SANTAMARIA> Date Mildred SANTAMARIA Cosigner Signature: Date (if applicable) CC: COMPREHENSIVE METABOLIC Collected: 06/20/2018 Status: F Source: RIKY MIREYA 8:30 AM [facility] REPOSITORY TYPE CODE TESTS RESULT OUT OF RANGE REFERENCE UNITS LAB L501.0100 74-106 mg/dL High GLU 281 Result Comment: Glucose result greater than or equal to 200 mg/dL suggests DIABETES MELLITUS per A.D.A. criteria. Please note revised GLUCOSE reference range effective 2017. LAB L501.1000 7-18 mg/dL High BUN 20 LAB L501.1100 0.70-1.30 mg/dL Normal CREAT,SERUM 0.90 Result Comment: The validity of the calculated GFR AND GFRAA in patients over 70 years has not been determined. Clinical correlation is essential. LAB L501.1110 >60 mL/min Normal EST GFR 91 Result Comment: Non- GFR Calc LAB L501.1115 >60 mL/min Normal EST GFR - AA 110 Result Comment: GFR Calc LAB L501.1300 10-20 RATIO High BUN/CRE 22.3 LAB L501.1500 6.4-8.2 g/dL T Normal PROT 7.1 LAB L501.1800 3.2-5.0 g/dL Normal ALB 3.6 LAB L501.1950 2.2-4.2 g/dL Normal GLOB 3.5 LAB L501.2000 0.9-2.4 RATIO Normal A/G 1.0 LAB L501.2200 8.5-10.1 mg/dL CA Normal 8.8 LAB L501.4100 15-37 U/L Normal AST 16 LAB L501.4305 45-117 U/L High ALK P 133 LAB L501.4405 16-61 U/L Normal ALT 23 LAB L501.4600 0.20-1.00 mg/dL T Normal BILI 0.30 LAB L501.5300 136-145 mmol/L NA Normal 140 LAB L501.5600 3.5-5.1 mmol/L K Normal 4.4 LAB L501.5900 98-107 mmol/L CL Normal 106 LAB L501.6100 21.0-32.0 mmol/L Normal CO2 30.0 LAB L501.6200 5-15 Low GAP 4 Performed By: #### L500.4050 #### [facility] [place], [place], [id number] MICROALB:CREAT Collected: 06/20/2018 Status: F Source: RIKY RATIO,RANDOM UR 8:30 AM [facility] REPOSITORY TYPE CODE TESTS RESULT OUT OF RANGE REFERENCE UNITS LAB L501.1200 NO RANGE EST. mg/dL Normal UR CREAT 119.00 LAB L502.0500 NO RANGE EST. mg/L Normal 54.2 MICROALBUMIN ,UR LAB L502.0600 <30 mg/g CRE mg/g CRE High 45.5 MALB:CREAT Performed By: #### L502.0250 #### [facility] [address] [place], [place], [address] HEMOGLOBIN A1C Collected: 06/20/2018 Status: F Source: RIKY 8:30 AM [facility] REPOSITORY TYPE CODE TESTS RESULT OUT OF RANGE REFERENCE UNITS LAB L501.9985 4.2-6.3 % High HGB A1C 8.5 Performed By: #### L501.9985 #### [facility] [address] [place], [address] ALBUMIN/CREAT RATIO Collected: 06/19/2018 Status: F Source: CRAWLEY 8:13 AM [facility] REPOSITORY TYPE CODE TESTS RESULT OUT OF REFERENCE UNITS RANGE LAB UCRR 20-300 mg/dL Creatinine,Ur 113.0 ine,Ran LAB UALBR 0.0-23.0 mg/L High Albumin Urine 48.5 Random LAB UALBCR 0-30 mg/g High Albumin/Creat 43 Ratio Result Comment: 30 to 300 mg/g indicates an increased risk for diabetic nephropathy. Greater than 300 mg/g is consistent with clinical nephropathy. (Am J Kidney Disease 1995, 25:107) Performed By: #### UACR #### [facility] [address] [place], [place] [address] BASIC METABOLIC PANL Collected: 06/19/2018 Status: F Source: CRAWLEY 8:09 AM [facility] REPOSITORY TYPE CODE TESTS RESULT OUT OF REFERENCE UNITS RANGE LAB GLU 74-99 mg/dL High Glucose 253 Result Comment: The [place] Diabetes Association (ADA) provides guidance for cutoff values for fasting glucose and random glucose. The ADA defines fasting as no caloric intake for at least 8 hours. Fas ting plasma glucose results between 100 to 125 mg/dL indicate increased risk for diabetes (prediabetes). Fasting plasma glucose results greater than or equal to 126 mg/dL meet the criteria for diagnosis of diabetes. In the absence of unequivocal hyperglycemia, results should be confirmed by repeat testing. In a patient with classic symptoms of hyperglycemia or hyperglycemic crisis, random plasma glucose results greater than or equal to 200 mg/dL meet the criteria for diagnosis of diabetes. Reference: Standards of Medical Care in Diabetes 2016, [place] Diabetes Association. Diabetes Care. 2016.39(Suppl 1). LAB BUN 9-24 mg/dL BUN 15 LAB CRET 0.73-1.22 mg/dL Creatinine 0.73 LAB NA 136-144 mmol/L Sodium 138 LAB K 3.7-5.1 mmol/L Potassium 5.0 LAB CL 97-105 mmol/L Chloride 102 LAB CO2 22-30 mmol/L CO2 25 LAB AGAP 9-18 mmol/L Anion Gap 11 LAB CA 8.5-10.2 mg/dL Calcium, Total 9.7 LAB GFRAA eGFR- Amer. >60 LAB GFRNAA . eGFR-All Other Races >60 Result Comment: eGFR (Estimated GFR) Units of measure: mL/min/1.73 meters squared eGFR is derived from the reexpressed MDRD Study equation using the following parameters: serum creatinine, age, gender and race. The creatinine assay has been calibrated to be traceable to IDMS. An eGFR <60 mL/min/1.73m2 for >3 months is consistent with chronic kidney disease. Refer to KDOQI guidelines for clinical interpretation. In patients with unstable renal function, e.g. those with acute kidney injury, the eGFR may not accurately reflect actual GFR. Performed By: #### BMP, LIPB, HBA1C #### [facility] [address] [place], [place] [address] LIPID PANEL, BASIC Collected: 06/19/2018 Status: F Source: CRAWLEY 8:[address] [facility] REPOSITORY TYPE CODE TESTS RESULT OUT OF REFERENCE UNITS RANGE LAB CHOL <200 mg/dL Cholesterol 172 Result Comment: <200 mg/dL, Desirable 200-239 mg/dL, Borderline high >239 mg/dL, High LAB TRIGLY <150 mg/dL Triglyceride 77 Result Comment: <150 mg/dL, Normal 150-199 mg/dL, Borderline high 200-499 mg/dL, High >499 mg/dL, Very high LAB HDL >39 mg/dL HDL-Cholesterol 60 Result Comment: 40-59 mg/dL, Acceptable >59 mg/dL, High: Negative risk factor for coronary heart disease <40 mg/dL, Low: Positive risk factor for coronary heart disease LAB LDL <100 mg/dL LDL-Cholesterol 97 Result Comment: <100 mg/dL, Optimal 100-129 mg/dL, Near optimal/above optimal 130-159 mg/dL, Borderline high 160-189 mg/dL, High >189 mg/dL, Very high Secondary prevention optimal LDL Cholesterol levels are recommended to be < 70 mg/dL LAB NONHDL <130 mg/dL Non HDL Cholesterol 112 Result Comment: <130 mg/dL, Optimal 130-159 mg/dL, Near optimal/above optimal 160-189 mg/dL, Borderline high 190-219 mg/dL, High >219 mg/dL, Very high Secondary prevention optimal non HDL Cholesterol levels are recommended to be < 100 mg/dL LAB FT hrs Fasting Time 9 LAB VLDL <30 mg/dL VLDL Cholesterol 15 LAB TCHDL <5.10 TC:HDL Ratio 2.87 LAB LDLHDL <2.54 LDL:HDL Ratio 1.62 Result Comment: Reference: 1. National Cholesterol Education Program ATP III Guideline At-A-Glance Quick Desk Reference: National Heart, Lung, and Blood [place]. National Institutes of Health. 2001: NIH Publication No. 01-3305. 2. An International Atherosclerosis Society position paper: global recommendations for the management of dyslipidemia: executive summary, Atherosclerosis. 2014: 232(2):410-413. Performed By: #### BMP, LIPB, HBA1C #### [facility] [address] [place], [place] [address] HEMOGLOBIN A1C Collected: 06/19/2018 Status: F Source: CRAWLEY 8:09 AM [facility] REPOSITORY TYPE CODE TESTS RESULT OUT OF REFERENCE UNITS RANGE LAB HGBA1C 4.3-5.6 % High Hemoglobin A1c 8.4 Result Comment: [place] Diabetes Association guidelines indicate that patients with HgbA1c in the range 5.7-6.4% are at increased risk for development of diabetes, and intervention by lifestyle modification may be beneficial. HgbA1c greater or equal to 6.5% is considered diagnostic of diabetes. LAB HBA0 mg/dL Est. Average Glucose 194 Result Comment: eAG: (Estimated average glucose) is a calculated value from HgbA1c and is sales representative electric service of the average blood glucose level in the last 2-3 month period. Performed By: #### BMP, LIPB, HBA1C #### [facility] [address] [place], [place] [address] ENDOCRINOLOGY VISIT Observed: 03/31/2018 Status: F Source: RIKY REPORT 8:05 AM [facility] REPOSITORY [facility]. [address] [place] [address] OFFICE VISIT Date of Service: 03/27/18 MR#: [id number] Acct: [id number] Name: JING RICHARDS Rep #: [id number] : 1955 Provider: Mildred Siddiqui NP Age/Sex: 62/M Location: [facility] Status: Signed HPI History of present illness HPI History of present illness Jing Richards is a 62 yr old male who presents for follow up of diabetes type 2. Continues on 70/30 insulin in am at 33 unit dose, 23 units of regular insulin for diner, and 5 units N at bedtime. Reports BG readings have been varied but he also states he has had a few low BG in the night. Does routine exercise. Monitors diet fairly close At time of visit Pt denies symptoms of hypertensive emergency. and hypotension Pt denies symptoms of hyerglycemia or symptoms of hypoglycemia Pt denies medication side effects. Since our last visit he denies excessive thirst, increased frequency of urination, chest pain or dyspnea. Follows a diabetic diet, Is compliant with medication and is tolerating without side effects. HYPOGLYCEMIA Aware of hypoglycemia: yes Able to self treatment hypoglycemia: yes Frequent low BG: No Has supply of glucagon: yes Diet 3 meals daily Occ diet pop No I/C ratio SMBG Checks at least 4 times daily BG 70-200 Average 150-180 Exam Const General: comfortable, no acute distress Nutritional Appearance: well nourished Orientation: oriented x3 HENMT Head: normal to inspection, atraumatic Ears: hearing grossly normal bilaterally Mouth: oral mucosae normal, moist mucous membranes Teeth and gingiva: dentition normal Eyes General: appearance normal, both eyes and all related structures Eyelids: eyelids normal Conjunctivae: conjunctivae normal Sclera: sclerae normal Pupils: PERRL Neck Neck: normal visual inspection, full ROM Neck mass: No Chest Chest palpation AND inspection: deferred Resp Effort AND Inspection: normal respiratory effort, able to speak in complete sentences, symmetric chest movement Auscultation: Bilateral: Clear to Auscultation Cardio Rate: regular rate Heart Sounds: S1 normal, S2 normal GI Inspection: normal to inspection Auscultation: normal bowel sounds Palpation: soft, no guarding Skin General: no rashes or lesions noted Wounds: no wounds Diabetic Foot Pulses: L dorsalis pedis pulse: normal, R dorsalis pedis pulse: normal Monofilament test: Left foot: normal, Right foot: normal Neuro General: gait normal Cranial Nerves: CN's II-XI intact bilaterally Speech: speech normal Motor: muscle tone normal throughout Extrem General: normal to inspection, normal capillary refill Psych Appearance: well kempt Mental Status: mental status grossly normal Mood: congruent mood Affect: normal affect Speech and Movement: speech and movement normal Attitude: cooperative Thought Process: normal Judgment: judgment good Type: type 2, insulin-requiring Glucose control symptoms: Reports high post-meal glucose and hypoglycemic with activity Weight and fatigue symptoms: Denies snoring Cardiopulmonary symptoms: Denies chest pain at rest, dyspnea on exertion, lightheadedness or myalgias GI symptoms: Denies constipation, diarrhea, nausea/dyspepsia or vomiting Skin and extremity symptoms: Denies erectile dysfunction Other symptoms: Denies blurry vision or change in vision Intake Vital Signs03/27/18 Height 5 ft 7 in 03/27/18 Weight: 177 lb 4 oz 03/27/18 Body Mass Index (BMI) 27.7 03/27/18 Blood Pressure 140/70 03/27/18 Blood Pressure Location Lt popliteal 03/27/18 Blood Pressure Position Sitting Intake Visit Reasons: 3 M 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 Accompanied by: Self Is patient in pain?: No Allergies No Known Allergies Allergy (Unverified 03/27/18 11:33) Medications Dorzolamide 2% [Trusopt] BC DAILY 10/06/15 [History Confirmed 03/27/18] Latanoprost 0.005% [Xalatan Opthalmic] 1 drp DAILY 10/06/15 [History Confirmed 03/27/18] Simvastatin [Zocor] 40 mg PO DAILY 10/06/15 [History Confirmed 03/27/18] Tamsulosin HCl [Flomax] 0.4 mg PO DAILY 10/06/15 [History Confirmed 03/27/18] Timolol [Betimol] BID 10/06/15 [History Confirmed 03/27/18] albuterol sulfate HFA 90 mcg/actuation aerosol inhaler 2 puff INHALATION Q4H PRN g 07/03/17 [History Confirmed 03/27/18] aspirin 81 mg tablet,delayed release 81 mg PO QDAY 07/03/17 [History Confirmed 03/27/18] blood sugar diagnostic strips See Dose Instructions .ROUTE .MEDSUPPLY #20 ea 07/03/17 [History Confirmed 03/27/18] blood-glucose meter See Dose Instructions .ROUTE .MEDSUPPLY #1 ea 07/03/17 [History Confirmed 03/27/18] insulin NPH isophane U-100 human 100 unit/mL subcutaneous suspension 5 unit SC QDAY ml 07/03/17 [History Confirmed 03/27/18] insulin U-100 regular human 100 unit/mL injection solution 25 unit SC QPM ml 07/03/17 [History Confirmed 03/27/18] insulin human U-100 NPH-regulr 70-30 mix 100 unit/mL subcutaneous susp 35 unit SC QDAY ml 07/03/17 [History Confirmed 03/27/18] insulin syringe-needle U-100 0.5 mL 31 gauge x 12/05 See Dose Instructions .ROUTE .MEDSUPPLY #10 ea 07/03/17 [History Confirmed 03/27/18] multivitamin capsule 1 cap PO QAM 07/03/17 [History Confirmed 03/27/18] vitamin B complex capsule 1 cap PO QDAY 07/03/17 [History Confirmed 03/27/18] Enalapril Maleate [Enalapril Maleate] 20 mg PO BID 07/24/17 [History Confirmed 03/27/18] Hydrocodone Bit/Homatropine [Hycodan Syrup] 5 ml PO Q6H PRN PRN #60 udc 07/24/17 [Rx Confirmed 03/27/18] Nurse's Note: blood sugars : low : 40 high : 300+ PFSH Medical History Asthma (Acute) Bilateral cataracts (Acute) Diabetes type 2, controlled (Acute) GERD (gastroesophageal reflux disease) (Acute) Glaucoma (Acute) Kidney stone (Acute) Vision problems (Acute) prostate problems (Acute) Surgical History H/O eye surgery (Acute) H/O skin graft (Acute) Family History Father Asthma Kidney disease Cancer Brother Heart disease Asthma Sister Heart disease Social History Smoking Status: Never smoker second hand exposure: No alcohol intake: never substance use type: does not use caffeine: No ROS Const Constitutional: No anorexia, body ache, chills, fatigue, fever(s), frequent falls, decreased energy, malaise, night sweats, weakness, weight change, sleep problems, abnormal sleep pattern, change in appetite, other, headache(s), snoring or excessive sweating Eyes Eyes: No blurry vision, change in vision, double vision, discharge, dry eyes, bulging eyes, floaters, visual disturbances, eye pain, light sensitivity, spots in vision, tunnel vision or other ENT ENT: No abnormal hearing, ear pain, ear discharge, ear pressure, hearing loss, tinnitus, dizziness/vertigo, balance problems, nosebleed/epistaxis, nasal congestion, nasal obstruction, nose pain, sinus pressure, sinus pain, nasal discharge, post nasal drip, headache(s), facial pain, dental pain, dry mouth, bad breath, hoarseness, lip swelling, mouth lesions, mouth pain, sore throat, tongue swelling, throat swelling, other, difficulty swallowing or neck pain Resp Respiratory: Positive for cough; no change in phlegm color, chest congestion, excessive phlegm production, hemoptysis, pain on inspiration, shortness of breath, pain with cough, snoring, stridor, wheezing or other Cardio Cardiology: No chest pain at rest, chest pain with exertion, leg pain with exertion, excessive sweating, shortness of breath, dyspnea on exertion, generalized swelling, irregular heart rhythm, lightheadedness, orthopnea, radiating jaw, neck or arm pain, fast heart rate, slow heart rate, palpitations or other Gastro GI: No abdominal pain, belching, bloating, change in bowel habits, change in stool character, coffee ground emesis, constipation, cramping, diarrhea, heartburn, difficulty swallowing, feeling full early, excessive flatus, incontinent of stools, Vomiting blood/hematemesis, blood in stool, loose stools, Black,tarry stools, nausea/dyspepsia, pain with swallowing, vomiting or other Genitourinary Male: No difficulty urinating, burning urination, painful urination, urinary incontinence, urinary frequency, urinary urgency, urinary hesitancy, urinary retention, blood in urine, Frequent nighttime urination/ nocturia, post void dribbling, suprapubic fullness, side pain, sexual problems, genital lesions, genital itching, erectile dysfunction, penile discharge, difficulty with ejaculations, blood in semen, scrotal swelling, testicle lump, testicle pain or other Musc Musculoskeletal: No abnormal walking, joint pain, back pain, deformity, joint swelling, limited range of motion, loss of height, muscle cramps, muscle weakness, decreased muscle mass, body aches, neck pain, numbness, radiating pain into limb, stiffness, tingling or other Skin Skin: No acne, hair loss, change in hair, nail changes, boil, change in skin color, dry skin, redness, excessive hair growth, yellowing of the skin, lesions, itching, rash, skin pain, skin ulcer, sores, skin swelling, wounds or other Breast Breast: No other Neuro Neurology: No frequent falls, weakness, visual disturbances, abnormal hearing, headache(s), abnormal walking, numbness or tingling Psych Psychiatric: No abnormal sleep pattern, No change in appetite Endo Endocrine: No fatigue, other or excessive sweating Aller/Imm Allergy/Immunologic: No lip swelling, tongue swelling, throat swelling, wheezing or itchy eyes Assessment AND Plan Problems 1. 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 Hypertension associated with diabetes E11.59; I10 Plan Diabetes BG improved since last visit. A1c now 7.8 which is down from 8.9 He has started some exercise but still not even close to his old exercise regimen /this would significantly help with his Bg control as well as weight and even BP. He agrees to work on his level of comittment to his exercise HTN: His PCP has added metroprolol to his regimen. Pulse 62. Has appointment soon. Enc to monitor diet, weight and salt intake. Reviewed medical records, labs, vital and glucose download. On romeo inhibitor Has microalbumin. On statin Annual eye exam up to date Does daily foot exam Orders Orders: Plan Detail Additional Comments 1. Please schedule follow up in 3 months. 2. Lab work one week before appointment. 3. Discussed importance of regular exercise and recommend starting or continuing a regular exercise program for good health. 4. The patient was encouraged to lose weight for good health 5. The importance of monitoring blood sugar regularly was reviewed. 6. The importance of monitoring the HBA1c level regularly was reviewed. 7. The importance of prper foot care and regularly checking feet to prevent sores and loss of limbs was reviewed. 8. The importance of keeping BP at or below 130/80 to prevent stroke, heart attacks, kidney failure, blindness was reviewed. Spent approximately 30 minutes with patient with over 50% of time spent in discussion and counseling regarding medication adjustment, symptoms and treatment of hypoglycemia, diet adherence, and checking BG before driving. 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, [address] MICROALB:CREAT Collected: 03/23/2018 Status: F Source: [place] 8:46 AM [facility] [place] REPOSITORY TYPE CODE TESTS RESULT OUT OF RANGE REFERENCE UNITS LAB L501.1200 NO RANGE EST. mg/dL Normal UR CREAT 84.00 LAB L502.0500 NO RANGE EST. mg/L Normal 71.1 MICROALBUMIN ,UR LAB L502.0600 <30 mg/g CRE mg/g CRE High 84.6 MALB:CREAT Performed By: #### L502.0250, L500.4050 #### [facility] [address] [place], [address] COMPREHENSIVE METABOLIC Collected: 03/23/2018 Status: F Source: RIKY PROFIL 8:46 AM [facility] [place] REPOSITORY TYPE CODE TESTS RESULT OUT OF RANGE REFERENCE UNITS LAB L501.0100 74-106 mg/dL High GLU 168 Result Comment: Fasting Glucose result greater than or equal to 126 mg/dL suggests DIABETES MELLITUS per A.D.A. criteria. Please note revised GLUCOSE reference range effective 2017. LAB L501.1000 7-18 mg/dL Normal BUN 16 LAB L501.1100 0.70-1.30 mg/dL Normal CREAT,SERUM 0.79 Result Comment: The validity of the calculated GFR AND GFRAA in patients over 70 years has not been determined. Clinical correlation is essential. LAB L501.1110 >60 mL/min Normal EST GFR 105 Result Comment: Non- GFR Calc LAB L501.1115 >60 mL/min Normal EST GFR - AA 127 Result Comment: GFR Calc LAB L501.1300 10-20 RATIO High BUN/CRE 20.3 LAB L501.1500 6.4-8.2 g/dL T Normal PROT 7.3 LAB L501.1800 3.2-5.0 g/dL Normal ALB 3.6 LAB L501.1950 2.2-4.2 g/dL Normal GLOB 3.7 LAB L501.2000 0.9-2.4 RATIO Normal A/G 1.0 LAB L501.2200 8.5-10.1 mg/dL CA Normal 9.0 LAB L501.4100 15-37 U/L Normal AST 26 LAB L501.4305 45-117 U/L Normal ALK P 101 LAB L501.4405 16-61 U/L Normal ALT 27 LAB L501.4600 0.20-1.00 mg/dL T Normal BILI 0.40 LAB L501.5300 136-145 mmol/L NA Normal 141 LAB L501.5600 3.5-5.1 mmol/L K Normal 4.5 LAB L501.5900 98-107 mmol/L CL Normal 106 LAB L501.6100 21.0-32.0 mmol/L Normal CO2 25.0 LAB L501.6200 5-15 Normal GAP 10 Performed By: #### L502.0250, L500.4050 #### [facility] [address] [facility] [place], [address] PROGRESS Observed: 03/14/2018 Status: COMPLETED Source: [place] 9:[address] [facility] [place] REPOSITORY HNO ID: [id number] Author: Tamia Pruett Cma Service: (none) Author Type: (none) Type: Progress Notes Filed: 03/14/2018 9:40 AM Note Text: I spoke with Jing and he agreed to schedule an appointment for f/up with Dr. yanes with labs prior. He states he had an eye exam done this year at [facility], but couldn't recall the date. I called [facility] and they said he had it done 01/11/18. They will fax report for scanning. HM updated. PROGRESS Observed: 03/06/2018 Status: COMPLETED Source: [place] 1:[address] [facility] [place] REPOSITORY HNO ID: [id number] Author: Tamia Pruett [facility] Service: (none) Author Type: (none) Type: Progress Notes Filed: 03/14/2018 9:40 AM Note Text: vm box not set up - unable to leave a message PROGRESS Observed: 03/06/2018 Status: COMPLETED Source: [place] 1:23 PM [facility] REPOSITORY HNO ID: [id number] Author: Tamia Pruett [facility] Service: (none) Author Type: (none) Type: Progress Notes Filed: 03/14/2018 9:40 AM Note Text: PHMA TEAMLET DOCUMENTATION Provider Action/FYI: Please file new lab orders PSR Action/FYI: Pt. No showed 11/12/17 and never r/s. Need to r/s follow up appointment with labs prior (all renewed orders pending) Due for dm retinal exam Teamlet has identified patient by name and date of . Team: Dr. Farzana Dumont myself ? Last Office Visit:11/12/2017 ? Next Office Visit: Visit date not found ? Last BP/Labs: Blood Pressure: Last 3 Encounter BP Readings: Date: BP: 07/24/2017 168/83[#1 (from Extended Vitals)[ 06/06/2017 139/64[#6 (from Extended Vitals)[ 05/23/2017 145/75 Lipids: Cholesterol, Total (mg/dL) Date Value 10/28/2016 186 10/30/2015 159 HDL Cholesterol (mg/dL) Date Value 10/28/2016 74 10/30/2015 78 LDL Cholesterol (mg/dL) Date Value 10/28/2016 96 10/30/2015 72 Triglyceride (mg/dL) Date Value 10/28/2016 78 10/30/2015 44 HGB A1C: Lab Results Component Value Date HBA1C 8.7 05/07/2017 HBA1C 8.4 10/28/2016 HBA1C 8.2 02/26/2016 TSH: No results found for: TSH) Care Gap: DM HTN Hypercholesterolemia Plan: ? Confirm PCP / Status - active ? Type of appointment needed: Follow-up Dm with labs prior next available with Provider pcp or cytogenetic technologist ? Consultation Appointments: n/a Labs, HM and Immunization: Health Maintenance Due: BLOOD PRESSURE CONTROLLED due on 1971 - recheck at next appt. DIABETIC FOOT EXAM due on 10/08/2015 HBA1C due on 08/07/2017 - order pending LDL CHOLESTEROL due on 10/28/2017 - order pending DILATED RETINAL EXAM due on 11/20/2017 INFLUENZA(1) due on 03/23/2018 Tamia Pruett [facility] CNPTOUTREACH Observed: 03/06/2018 Status: COMPLETED Source: [place] 12:00 AM [facility] REPOSITORY Patient Outreach (INTMWS) JING RICHARDS ([id number]) 1955 M Date Time Provider Department 03/06/18 TAMIA PRUETT ([facility]) INTMWS During your visit today, we recorded the following information about you: Tamia Pruett [facility] 03/14/2018 9:40 AM Signed PHMA TEAMLET DOCUMENTATION Provider Action/FYI: Please file new lab orders PSR Action/FYI: Pt. No showed 11/12/17 and never r/s. Need to r/s follow up appointment with labs prior (all renewed orders pending) Due for dm retinal exam Teamlet has identified patient by name and date of . Team: Dr. Farzana Dumont myself ? Last Office Visit:11/12/2017 ? Next Office Visit: Visit date not found ? Last BP/Labs: Blood Pressure: Last 3 Encounter BP Readings: Date: BP: 07/24/2017 168/83[#1 (from Extended Vitals)[ 06/06/2017 139/64[#6 (from [facility])[ 05/23/2017 145/75 Lipids: Cholesterol, Total (mg/dL) Date Value 10/28/2016 186 10/30/2015 159 HDL Cholesterol (mg/dL) Date Value 10/28/2016 74 10/30/2015 78 LDL Cholesterol (mg/dL) Date Value 10/28/2016 96 10/30/2015 72 Triglyceride (mg/dL) Date Value 10/28/2016 78 10/30/2015 44 HGB A1C: Lab Results Component Value Date HBA1C 8.7 05/07/2017 HBA1C 8.4 10/28/2016 HBA1C 8.2 02/26/2016 TSH: No results found for: TSH) Care Gap: DM HTN Hypercholesterolemia Plan: ? Confirm PCP / Status - active ? Type of appointment needed: Follow-up Dm with labs prior next available with Provider pcp or cytogenetic technologist ? Consultation Appointments: n/a Labs, HM and Immunization: Health Maintenance Due: BLOOD PRESSURE CONTROLLED due on 1971 - recheck at next appt. DIABETIC FOOT EXAM due on 10/08/2015 HBA1C due on 08/07/2017 - order pending LDL CHOLESTEROL due on 10/28/2017 - order pending DILATED RETINAL EXAM due on 11/20/2017 INFLUENZA(1) due on 03/23/2018 Tamia Pruett [facility] Tamia Pruett [facility] 03/14/2018 9:40 AM Signed vm box not set up - unable to leave a message Tamia Pruett [facility] 03/14/2018 9:40 AM Signed I spoke with Jing and he agreed to schedule an appointment for f/up with Dr. yanes with labs prior. He states he had an eye exam done this year at [facility], but couldn't recall the date. I called [facility] and they said he had it done 01/11/18. They will fax report for scanning. HM updated. Allergies As of Date: 03/06/2018 (No Known Allergies) Date Reviewed: 07/24/2017 Reviewed by: Natty Arauz LPN - Fully Assessed Reason for Visit: PHMA/Care Gap Outreach [[id number]] Primary Visit Diagnosis:Type 2 diabetes mellitus with microalbuminuria, with long-term current use of insulin (HCC) [E11.29, R80.9, Z79.4] Order(s):HGB A1C [SVEKC0M] Order #: [id number] FUTURE BASIC METABOLIC PNL [SQBMP] Order #: [id number] FUTURE LIPID PANEL BASIC [SQLIPB] Order #: [id number] FUTURE ALBUMIN/CREAT RATIO RND UR [SQUACR] Order #: [id number] FUTURE Prescriptions as of 03/06/2018 Sig: INSULIN U-100 REGULAR HUMAN 1* Inject 25 Units subcutaneousl* SIMVASTATIN 40 MG TABLET TAKE ONE TABLET BY MOUTH ONCE* INSULIN SYRINGE-NEEDLE U-100 * Use as directed with insulin * METOPROLOL SUCCINATE ER 25 MG* Take 1 tablet by mouth once d* ENALAPRIL MALEATE 20 MG TABLET Take 1 tablet by mouth twice * TAMSULOSIN 0.4 MG CAPSULE Take 2 capsules by mouth zach* INSULIN HUMAN U-100 NPH-REGUL* Inject 35 Units subcutaneousl* INSULIN NPH ISOPHANE U-100 HU* Inject 5 Units subcutaneously* ALBUTEROL SULFATE HFA 90 MCG/* Inhale 2 Puffs as instructed * BLOOD SUGAR DIAGNOSTIC, DRUM-* Testing 2-3 times daily * FREESTYLE LANCETS 28 GAUGE Use as directed. * XALATAN 0.005 % EYE DROPS once daily both eyes * COSOPT 22.3 MG-6.8 MG/ML EYE * twice daily both eyes * ASPIRIN 81 MG TABLET Take one (1) tablet daily . * COMPOUNDED PRESCRIPTION Insulin syringes 0.3cc 31 G u* * B COMPLEX CAPSULE take one tablet daily * MULTIVITAMIN TABLET Take one(1) tablet daily. Problem List As Of Date 03/06/2018 Noted Resolved Diabetes mellitus (HCC) [E11.9] 11/17/2015 More... BENIGN HYPERTENSION [I10] PURE HYPERCHOLESTEROLEM [E78.00] CARPAL TUNNEL SYNDROME [G56.00] GLAUCOMA NOS [H40.9] RECTAL AND ANAL HEMORRHAGE [K62.5] BENIGN NEOPLASM LG BOWEL [D12.6] INVALID FOR* GASTROINTEST HEMORR NOS [K92.2] INVALID FOR* INT HEMORRHOID W/O COMPL [K64.8] INVALID FOR* LUMB/LUMBOSAC DISC DEGEN [M51.37] INVALID FOR* SCIATICA [M54.30] INVALID FOR* BPH with obstruction/lower urinary tract sympto*INVALID FOR* Type 2 diabetes mellitus with microalbuminuria,*INVALID FOR* History of colonic polyps [Z86.010] INVALID FOR* More... Diverticulosis of large intestine without hemor*INVALID FOR* More... Encounter Status:Closed by TAMIA PRUETT CMA on 03/14/18 ENDOCRINOLOGY VISIT Observed: 01/25/2018 Status: F Source: [place] REPORT 7:28 AM [facility] [place] REPOSITORY [facility] [address] [place] [address] OFFICE VISIT Date of Service: 12/26/17 MR#: [id number] Acct: [id number] Name: JING RICHARDS Rep #: [id number] : 1955 Provider: Mildred Siddiqui NP Age/Sex: 62/M Location: [facility] Status: Signed HPI History of present illness Jing Richards is a 62 yr old male who presents for follow up of diabetes type 2. Continues on 70/30 insulin in am at 35 unit dose, 25 units of regular insulin for diner, and 5 units N at bedtime. Reports BG readings have been varied but he also states he has had a few low BG in the night. Does routine exercise. Monitors diet fairly close At time of visit Pt denies symptoms of hypertensive emergency. and hypotension Pt denies symptoms of hyerglycemia or symptoms of hypoglycemia Pt denies medication side effects. Since our last visit he denies excessive thirst, increased frequency of urination, chest pain or dyspnea. Follows a diabetic diet, Is compliant with medication and is tolerating without side effects. HYPOGLYCEMIA Aware of hypoglycemia: yes Able to self treatment hypoglycemia: yes Frequent low BG: No Has supply of glucagon: yes Diet 3 meals daily Occ diet pop No I/C ratio SMBG Checks at least 4 times daily BG 60-200 Due for labs Glucose control symptoms: Reports hypoglycemic with activity Weight and fatigue symptoms: Denies snoring Cardiopulmonary symptoms: Denies chest pain at rest, dyspnea on exertion, lightheadedness or myalgias GI symptoms: Denies constipation, diarrhea, nausea/dyspepsia or vomiting Skin and extremity symptoms: Denies erectile dysfunction Other symptoms: Denies blurry vision or change in vision Self monitoring: Yes Glucometer type: relion prime Dietary compliance: Diabetes: good Diabetes education in past year: Yes Glucose testing: demonstrates correct use of meter, understands testing schedule Physical activity: regular Exam Const General: comfortable, no acute distress Nutritional Appearance: well nourished Orientation: oriented x3 [facility] Head: normal to inspection, atraumatic Ears: hearing grossly normal bilaterally Mouth: oral mucosae normal, moist mucous membranes Teeth and gingiva: dentition normal Eyes General: appearance normal, both eyes and all related structures Eyelids: eyelids normal Conjunctivae: conjunctivae normal Sclera: sclerae normal Pupils: PERRL Neck Neck: normal visual inspection, full ROM Neck mass: No Chest Chest palpation AND inspection: deferred Resp Effort AND Inspection: normal respiratory effort, able to speak in complete sentences, symmetric chest movement Auscultation: Bilateral: Clear to Auscultation Cardio Rate: regular rate Heart Sounds: S1 normal, S2 normal GI Inspection: normal to inspection Auscultation: normal bowel sounds Palpation: soft, no guarding Skin General: no rashes or lesions noted Wounds: no wounds Diabetic Foot Pulses: L dorsalis pedis pulse: normal, R dorsalis pedis pulse: normal Monofilament test: Left foot: normal, Right foot: normal Neuro General: gait normal Cranial Nerves: CN's II-XI intact bilaterally Speech: speech normal Motor: muscle tone normal throughout Extrem General: normal to inspection, normal capillary refill Psych Appearance: well kempt Mental Status: mental status grossly normal Mood: congruent mood Affect: normal affect Speech and Movement: speech and movement normal Attitude: cooperative Thought Process: normal Judgment: judgment good Intake Intake Visit Reasons: Diabetes 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 Is patient in pain?: No Allergies No Known Allergies Allergy (Unverified 01/14/18 16:20) Medications Dorzolamide 2% [Trusopt] BC DAILY 10/06/15 [History Confirmed 01/14/18] Latanoprost 0.005% [Xalatan Opthalmic] 1 drp DAILY 10/06/15 [History Confirmed 01/14/18] Simvastatin [Zocor] 40 mg PO DAILY 10/06/15 [History Confirmed 01/14/18] Tamsulosin HCl [Flomax] 0.4 mg PO DAILY 10/06/15 [History Confirmed 01/14/18] Timolol [Betimol] BID 10/06/15 [History Confirmed 01/14/18] albuterol sulfate HFA 90 mcg/actuation aerosol inhaler 2 puff INHALATION Q4H PRN g 07/03/17 [History Confirmed 01/14/18] aspirin 81 mg tablet,delayed release 81 mg PO QDAY 07/03/17 [History Confirmed 01/14/18] blood sugar diagnostic strips See Dose Instructions .ROUTE .MEDSUPPLY #20 ea 07/03/17 [History Confirmed 01/14/18] blood-glucose meter See Dose Instructions .ROUTE .MEDSUPPLY #1 ea 07/03/17 [History Confirmed 01/14/18] insulin NPH isophane U-100 human 100 unit/mL subcutaneous suspension 5 unit SC QDAY ml 07/03/17 [History Confirmed 01/14/18] insulin U-100 regular human 100 unit/mL injection solution 25 unit SC QPM ml 07/03/17 [History Confirmed 01/14/18] insulin human U-100 NPH-regulr 70-30 mix 100 unit/mL subcutaneous susp 35 unit SC QDAY ml 07/03/17 [History Confirmed 01/14/18] insulin syringe-needle U-100 0.5 mL 31 gauge x 12/05 See Dose Instructions .ROUTE .MEDSUPPLY #10 ea 07/03/17 [History Confirmed 01/14/18] multivitamin capsule 1 cap PO QAM 07/03/17 [History Confirmed 01/14/18] vitamin B complex capsule 1 cap PO QDAY 07/03/17 [History Confirmed 01/14/18] Enalapril Maleate [Enalapril Maleate] 20 mg PO BID 07/24/17 [History Confirmed 01/14/18] Hydrocodone Bit/Homatropine [Hycodan Syrup] 5 ml PO Q6H PRN PRN #60 udc 07/24/17 [Rx Confirmed 01/14/18] PFSH Medical History Asthma (Acute) Bilateral cataracts (Acute) Diabetes type 2, controlled (Acute) GERD (gastroesophageal reflux disease) (Acute) Glaucoma (Acute) Kidney stone (Acute) Vision problems (Acute) prostate problems (Acute) Surgical History H/O eye surgery (Acute) H/O skin graft (Acute) Family History Father Asthma Kidney disease Cancer Brother Heart disease Asthma Sister Heart disease Social History Smoking Status: Never smoker second hand exposure: No alcohol intake: never substance use type: does not use caffeine: No Assessment AND Plan 1. Diabetic retinopathy without macular edema associated with type 2 diabetes mellitus, unspecified laterality, unspecified retinopathy severity E11.319 2. 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 Hypertension associated with diabetes E11.59; I10 Plan Resume exercise retine and lower his insulin dose. Monitor Bg intensively. Plan Detail Other Orders Orders: Additional Comments 1. Please schedule follow up in 3 months. 2. Lab work one week before appointment. 3. Discussed importance of regular exercise and recommend starting or continuing a regular exercise program for good health. 4. The patient was encouraged to lose weight for good health 5. The importance of monitoring blood sugar regularly was reviewed. 6. The importance of monitoring the HBA1c level regularly was reviewed. 7. The importance of prper foot care and regularly checking feet to prevent sores and loss of limbs was reviewed. 8. The importance of keeping BP at or below 130/80 to prevent stroke, heart attacks, kidney failure, blindness was reviewed. Spent approximately 30 minutes with patient with over 50% of time spent in discussion and counseling regarding medication adjustment, symptoms and treatment of hypoglycemia, diet adherence, and checking BG before driving. 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 mg/dL Normal UR CREAT 147.00 LAB L502.0500 NO RANGE EST. mg/L Normal 104.0 MICROALBUMIN ,UR LAB L502.0600 <30 mg/g CRE mg/g CRE High 70.7 MALB:CREAT Performed By: #### L502.0250, L501.9985 #### [facility] [address] [facility] [place], [address] HEMOGLOBIN A1C Collected: 12/20/2017 Status: F Source: CHIGNIK LAGOON 9:27 AM [facility] REPOSITORY TYPE CODE TESTS RESULT OUT OF RANGE REFERENCE UNITS LAB L501.9985 4.2-6.3 % High HGB A1C 8.9 Performed By: #### L502.0250, L501.9985 #### [facility] [address] [facility] [facility] [address] COMPREHENSIVE METABOLIC Collected: 12/20/2017 Status: F Source: RIKY PROFIL 9:27 AM [facility] REPOSITORY TYPE CODE TESTS RESULT OUT OF RANGE REFERENCE UNITS LAB L501.0100 74-106 mg/dL High GLU 247 Result Comment: Glucose result greater than or equal to 200 mg/dL suggests DIABETES MELLITUS per A.D.A. criteria. Please note revised GLUCOSE reference range effective 2017. LAB L501.1000 7-18 mg/dL Normal BUN 17 LAB L501.1100 0.70-1.30 mg/dL Normal CREAT,SERUM 0.96 Result Comment: The validity of the calculated GFR AND GFRAA in patients over 70 years has not been determined. Clinical correlation is essential. LAB L501.1110 >60 mL/min Normal EST GFR 83 Result Comment: Non- GFR Calc LAB L501.1115 >60 mL/min Normal EST GFR - AA 101 Result Comment: GFR Calc LAB L501.1300 10-20 RATIO Normal BUN/CRE 17.6 LAB L501.1500 6.4-8.2 g/dL T Normal PROT 7.1 LAB L501.1800 3.2-5.0 g/dL Normal ALB 3.5 LAB L501.1950 2.2-4.2 g/dL Normal GLOB 3.6 LAB L501.2000 0.9-2.4 RATIO Normal A/G 1.0 LAB L501.2200 8.5-10.1 mg/dL CA Normal 8.9 LAB L501.4100 15-37 U/L Normal AST 16 LAB L501.4305 45-117 U/L High ALK P 127 LAB L501.4405 16-61 U/L Normal ALT 16 LAB L501.4600 0.20-1.00 mg/dL T Normal BILI 0.50 LAB L501.5300 136-145 mmol/L NA Normal 140 LAB L501.5600 3.5-5.1 mmol/L K Normal 4.2 LAB L501.5900 98-107 mmol/L CL Normal 107 LAB L501.6100 21.0-32.0 mmol/L Normal CO2 27.0 LAB L501.6200 5-15 Normal GAP 6 Performed By: #### L500.4050, L500.4100 #### [facility] [address] [place], [address] LIPID PROFILE Collected: 12/20/2017 Status: F Source: CHIGNIK LAGOON 9:27 AM [facility] REPOSITORY TYPE CODE TESTS RESULT OUT OF RANGE REFERENCE UNITS LAB L501.4900 200 mg/dL Normal CHOL 164 Result Comment: <200 mg/dL Desirable 200-240 mg/dL Borderline >240 mg/dL High Risk LAB L501.5000 mg/dL Normal TRIG 59 Result Comment: The drugs N-Acetylcysteine and Metamizole may falsely depress this assay. Serum Triglycerides Reference Interval Normal <150 mg/dL Borderline high 150 - 199 mg/dL High 200 - 499 mg/dL Very High > or = 500 mg/dL LAB L501.6400 mg/dL Normal HDL 61 Result Comment: The drugs N-Acetylcysteine and Metamizole may falsely depress this assay. Reference Range HDL <40 mg/dL Low HDL Cholesterol HDL >or= 60 mg/dL High HDL Cholesterol LAB L501.6500 0-130 mg/dL Normal LDL 91 LAB L501.6600 5-40 mg/dL Normal VLDL 12 Performed By: #### L500.4050, L500.4100 #### [facility] [address] [place], [address] CNPTOUTREACH Observed: 10/30/2017 Status: COMPLETED Source: [place] 12:00 AM [facility] REPOSITORY Patient Outreach (INTMWH) JING RICHARDS ([id number]) 1955 M Date Time Provider Department 10/30/17 [facility] During your visit today, we recorded the following information about you: Allergies As of Date: 10/30/2017 (No Known Allergies) Date Reviewed: 07/24/2017 Reviewed by: Natty Arauz LPN - Fully Assessed Visit Diagnosis:Medication management [Z79.899] Order(s):LIPID PANEL BASIC [SQLIPB] Order #: [id number] FUTURE Prescriptions as of 10/30/2017 Sig: X METOPROLOL SUCCINATE ER 25 MG* Take 1 tablet by mouth once d* ENALAPRIL MALEATE 20 MG TABLET Take 1 tablet by mouth twice * TAMSULOSIN 0.4 MG CAPSULE Take 2 capsules by mouth zach* INSULIN HUMAN U-100 NPH-REGUL* Inject 35 Units subcutaneousl* INSULIN NPH ISOPHANE U-100 HU* Inject 5 Units subcutaneously* X INSULIN U-100 REGULAR HUMAN 1* Inject 25 Units subcutaneousl* X SIMVASTATIN 40 MG TABLET Take 1 tablet by mouth daily * ALBUTEROL SULFATE HFA 90 MCG/* Inhale 2 Puffs as instructed * X INSULIN SYRINGE-NEEDLE U-100 * Use as directed with insulin * BLOOD SUGAR DIAGNOSTIC, DRUM-* Testing 2-3 times daily * FREESTYLE LANCETS 28 GAUGE Use as directed. * XALATAN 0.005 % EYE DROPS once daily both eyes * COSOPT 22.3 MG-6.8 MG/ML EYE * twice daily both eyes * ASPIRIN 81 MG TABLET Take one (1) tablet daily . * COMPOUNDED PRESCRIPTION Insulin syringes 0.3cc 31 G u* * B COMPLEX CAPSULE take one tablet daily * MULTIVITAMIN TABLET Take one(1) tablet daily. Problem List As Of Date 10/30/2017 Noted Resolved Diabetes mellitus (HCC) [E11.9] 11/17/2015 More... BENIGN HYPERTENSION [I10] PURE HYPERCHOLESTEROLEM [E78.00] CARPAL TUNNEL SYNDROME [G56.00] GLAUCOMA NOS [H40.9] RECTAL AND ANAL HEMORRHAGE [K62.5] BENIGN NEOPLASM LG BOWEL [D12.6] INVALID FOR* GASTROINTEST HEMORR NOS [K92.2] INVALID FOR* INT HEMORRHOID W/O COMPL [K64.8] INVALID FOR* LUMB/LUMBOSAC DISC DEGEN [M51.37] INVALID FOR* SCIATICA [M54.30] INVALID FOR* BPH with obstruction/lower urinary tract sympto*INVALID FOR* Type 2 diabetes mellitus with microalbuminuria,*INVALID FOR* History of colonic polyps [Z86.010] INVALID FOR* More... Diverticulosis of large intestine without hemor*INVALID FOR* More... Encounter Status:Closed by KAROL FRANKEL on 05/03/18 ENDOCRINOLOGY VISIT Observed: 10/01/2017 Status: F Source: CHIGNIK LAGOON REPORT 2:35 PM [facility] REPOSITORY [facility] [address] [place] [address] [address] [place] [address] OFFICE VISIT Date of Service: 10/01/17 MR#: [id number] Acct: [id number] Name: JING RICHARDS Rep #: [id number] : 1955 Provider: Mildred Siddiqui NP Age/Sex: 62/M Location: [facility] Status: Signed HPI History of present illness Jing Richards is a 62 yr old male who presents for follow up of diabetes type 2. Continues on 70/30 insulin in am at 35 unit dose, 25 units of regular insulin for diner, and 5 units N at bedtime. Reports BG readings have been higher later but he also states he has had a few low BG in the night. Does routine exercise. Monitors diet fairly close At time of visit Pt denies symptoms of hypertensive emergency. and hypotension Pt denies symptoms of hyerglycemia or symptoms of hypoglycemia Pt denies medication side effects. HYPOGLYCEMIA Aware of hypoglycemia: yes Able to self treatment hypoglycemia: yes Frequent low BG: No Has supply of glucagon: yes Diet 3 meals daily Occ diet pop No I/C ratio SMBG Checks at least 4 times daily Control is doing well. Due for labs Glucose control symptoms: Reports hypoglycemic with activity Weight and fatigue symptoms: Denies snoring Cardiopulmonary symptoms: Denies chest pain at rest, dyspnea on exertion, lightheadedness or myalgias GI symptoms: Denies constipation, diarrhea, nausea/dyspepsia or vomiting Skin and extremity symptoms: Denies erectile dysfunction Other symptoms: Denies blurry vision or change in vision Self monitoring: Yes Glucometer type: relion prime Dietary compliance: Diabetes: good Diabetes education in past year: Yes Glucose testing: demonstrates correct use of meter, understands testing schedule Physical activity: regular Exam Const General: comfortable, no acute distress Nutritional Appearance: well nourished Orientation: oriented x3 HENMT Head: normal to inspection, atraumatic Ears: hearing grossly normal bilaterally Mouth: oral mucosae normal, moist mucous membranes Teeth and gingiva: dentition normal Eyes General: appearance normal, both eyes and all related structures Eyelids: eyelids normal Conjunctivae: conjunctivae normal Sclera: sclerae normal Pupils: PERRL Neck Neck: normal visual inspection, full ROM Neck mass: No Chest Chest palpation AND inspection: deferred Resp Effort AND Inspection: normal respiratory effort, able to speak in complete sentences, symmetric chest movement Auscultation: Bilateral: Clear to Auscultation Cardio Rate: regular rate Heart Sounds: S1 normal, S2 normal GI Inspection: normal to inspection Auscultation: normal bowel sounds Palpation: soft, no guarding Skin General: no rashes or lesions noted Wounds: no wounds Diabetic Foot Pulses: L dorsalis pedis pulse: normal, R dorsalis pedis pulse: normal Monofilament test: Left foot: normal, Right foot: normal Neuro General: gait normal Cranial Nerves: CN's II-XI intact bilaterally Speech: speech normal Motor: muscle tone normal throughout Extrem General: normal to inspection, normal capillary refill Psych Appearance: well kempt Mental Status: mental status grossly normal Mood: congruent mood Affect: normal affect Speech and Movement: speech and movement normal Attitude: cooperative Thought Process: normal Judgment: judgment good Intake Vital Signs10/01/17 Height 5 ft 7 in 10/01/17 Weight: 183 lb 6 oz 10/01/17 Body Mass Index (BMI) 28.7 10/01/17 Blood Pressure 146/78 10/01/17 Blood Pressure Location Lt popliteal Intake Visit Reasons: Diabetes Mellitus Type 1 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 Accompanied by: Self Is patient in pain?: No Allergies No Known Allergies Allergy (Unverified 10/01/17 11:39) Medications Dorzolamide 2% [Trusopt] BC DAILY 10/06/15 [History Confirmed 10/01/17] Latanoprost 0.005% [Xalatan Opthalmic] 1 drp DAILY 10/06/15 [History Confirmed 10/01/17] Simvastatin [Zocor] 40 mg PO DAILY 10/06/15 [History Confirmed 10/01/17] Tamsulosin HCl [Flomax] 0.4 mg PO DAILY 10/06/15 [History Confirmed 10/01/17] Timolol [Betimol] BID 10/06/15 [History Confirmed 10/01/17] albuterol sulfate HFA 90 mcg/actuation aerosol inhaler 2 puff INHALATION Q4H PRN g 07/03/17 [History Confirmed 10/01/17] aspirin 81 mg tablet,delayed release 81 mg PO QDAY 07/03/17 [History Confirmed 10/01/17] blood sugar diagnostic strips See Dose Instructions .ROUTE .MEDSUPPLY #20 ea 07/03/17 [History Confirmed 10/01/17] blood-glucose meter See Dose Instructions .ROUTE .MEDSUPPLY #1 ea 07/03/17 [History Confirmed 10/01/17] insulin NPH isophane U-100 human 100 unit/mL subcutaneous suspension 5 unit SC QDAY ml 07/03/17 [History Confirmed 10/01/17] insulin U-100 regular human 100 unit/mL injection solution 25 unit SC QPM ml 07/03/17 [History Confirmed 10/01/17] insulin human U-100 NPH-regulr 70-30 mix 100 unit/mL subcutaneous susp 35 unit SC QDAY ml 07/03/17 [History Confirmed 10/01/17] insulin syringe-needle U-100 0.5 mL 31 gauge x 12/05 See Dose Instructions .ROUTE .MEDSUPPLY #10 ea 07/03/17 [History Confirmed 10/01/17] multivitamin capsule 1 cap PO QAM 07/03/17 [History Confirmed 10/01/17] vitamin B complex capsule 1 cap PO QDAY 07/03/17 [History Confirmed 10/01/17] Enalapril Maleate [Enalapril Maleate] 20 mg PO BID 07/24/17 [History Confirmed 10/01/17] Hydrocodone Bit/Homatropine [Hycodan Syrup] 5 ml PO Q6H PRN PRN #60 udc 07/24/17 [Rx Confirmed 10/01/17] PFSH Medical History Asthma (Acute) Bilateral cataracts (Acute) Diabetes type 2, controlled (Acute) GERD (gastroesophageal reflux disease) (Acute) Glaucoma (Acute) Kidney stone (Acute) Vision problems (Acute) prostate problems (Acute) Surgical History H/O eye surgery (Acute) H/O skin graft (Acute) Family History Father Asthma Kidney disease Cancer Brother Heart disease Asthma Sister Heart disease Social History Smoking Status: Never smoker second hand exposure: No alcohol intake: never substance use type: does not use caffeine: No ROS Const Constitutional: No anorexia, body ache, chills, fatigue, fever(s), frequent falls, decreased energy, malaise, night sweats, weakness, weight change, sleep problems, abnormal sleep pattern, change in appetite, other, headache(s), snoring or excessive sweating Eyes Eyes: No blurry vision, change in vision, double vision, discharge, dry eyes, bulging eyes, floaters, visual disturbances, eye pain, light sensitivity, spots in vision, tunnel vision or other ENT ENT: No abnormal hearing, ear pain, ear discharge, ear pressure, hearing loss, tinnitus, dizziness/vertigo, balance problems, nosebleed/epistaxis, nasal congestion, nasal obstruction, nose pain, sinus pressure, sinus pain, nasal discharge, post nasal drip, headache(s), facial pain, dental pain, dry mouth, bad breath, hoarseness, lip swelling, mouth lesions, mouth pain, sore throat, tongue swelling, throat swelling, other, difficulty swallowing or neck pain Resp Respiratory: No cough, change in phlegm color, chest congestion, excessive phlegm production, hemoptysis, pain on inspiration, shortness of breath, pain with cough, snoring, stridor, wheezing or other Cardio Cardiology: No chest pain at rest, chest pain with exertion, leg pain with exertion, excessive sweating, shortness of breath, dyspnea on exertion, generalized swelling, irregular heart rhythm, lightheadedness, orthopnea, radiating jaw, neck or arm pain, fast heart rate, slow heart rate, palpitations or other Gastro GI: No abdominal pain, belching, bloating, change in bowel habits, change in stool character, coffee ground emesis, constipation, cramping, diarrhea, heartburn, difficulty swallowing, feeling full early, excessive flatus, incontinent of stools, Vomiting blood/hematemesis, blood in stool, loose stools, Black,tarry stools, nausea/dyspepsia, pain with swallowing, vomiting or other Genitourinary Male: Positive for urinary hesitancy; no difficulty urinating, burning urination, painful urination, urinary incontinence, urinary frequency, urinary urgency, urinary retention, blood in urine, Frequent nighttime urination/ nocturia, post void dribbling, suprapubic fullness, side pain, sexual problems, genital lesions, genital itching, erectile dysfunction, penile discharge, difficulty with ejaculations, blood in semen, scrotal swelling, testicle lump, testicle pain or other Musc Musculoskeletal: No abnormal walking, joint pain, back pain, deformity, joint swelling, limited range of motion, loss of height, muscle cramps, muscle weakness, decreased muscle mass, body aches, neck pain, numbness, radiating pain into limb, stiffness, tingling or other Neuro Neurology: No frequent falls, weakness, visual disturbances, abnormal hearing, headache(s), abnormal walking, numbness or tingling Psych Psychiatric: No abnormal sleep pattern, No change in appetite Endo Endocrine: No fatigue, other or excessive sweating Aller/Imm Allergy/Immunologic: No lip swelling, tongue swelling, throat swelling or wheezing Assessment AND Plan Problems 1. 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 Hypertension associated with diabetes E11.59; I10 Orders Orders: Plan Detail Additional Comments 1. Please schedule follow up in 3 months. 2. Lab work one week before appointment. 3. Discussed importance of regular exercise and recommend starting or continuing a regular exercise program for good health. 4. The patient was encouraged to lose weight for good health 5. The importance of monitoring blood sugar regularly was reviewed. 6. The importance of monitoring the HBA1c level regularly was reviewed. 7. The importance of prper foot care and regularly checking feet to prevent sores and loss of limbs was reviewed. 8. The importance of keeping BP at or below 130/80 to prevent stroke, heart attacks, kidney failure, blindness was reviewed. Spent approximately 30 minutes with patient with over 50% of time spent in discussion and counseling regarding medication adjustment, symptoms and treatment of hypoglycemia, diet adherence, and checking BG before driving. 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; Z79.4 Hypertension associated with diabetes E11.59; I10 Time Spent (min) 30 10/01/17 1435 <Electronically signed by Mildred SANTAMARIA> Date Mildred SANTAMARIA Cosigner Signature: Date (if applicable) CC: EMERGENCY DEPARTMENT Observed: 07/24/2017 Status: F Source: CHIGNIK LAGOON SUMMARY 10:31 PM [facility] REPOSITORY [facility] Medical Records Department [address] [place] [address] Emergency Department Summary 07/24/17 2230 MR#: [id number] Acct: [id number] Name: JING RICHARDS Rep #: [id number] : 1955 62 From: Santiago Madrid MD PCP: Son Yanes MD Status: REG ER - ER Visit Summary Date of Service: 07/24/17 Chief Complaint: [] History of Present Illness: The patient is a 62 M [] Physical Examination: [] Test Results: [] Emergency Department Course and Treatment: [] Treatment Plan: [] Disposition: [] Impression: [] This note was generated with [employer] dictation software. It may contain incorrect words, spelling, and punctuation that were not noted in review of the chart prior to signing ED Disposition - Plan for ED Patient: Disposition: Home or Assisted Living Chief Complaint: Cold Sx Instructions: ED Upper Resp Infec No Abx Tx Prescriptions: Hydrocodone Bit/Homatropine [Hycodan Syrup] 5 ml PO Q6H PRN PRN #60 udc PRN Reason: Cough Referrals: Son Yanes MD [Primary Care Provider] - 1 Week if not improving What to do if you have Problems For any increased pain, shortness of breath, bleeding, nausea or vomiting, chest pain, or any unexpected problems, contact your Primary Care Provider. Call [facility] ([phone]) or report to the closest Emergency Room. Call 911 if necessary. 07/24/172230 <Electronically signed by Santiago Madrid MD> Date Santiago Madrid MD Cosigner Signature (If Indicated): Date CC: Son Yanes MD EMERGENCY DEPARTMENT Observed: 07/24/2017 Status: F Source: CHIGNIK LAGOON SUMMARY 10:26 PM [facility] REPOSITORY [facility] Medical Records Department [address] [place] [address] Emergency Department Summary 07/24/17 2222 MR#: [id number] Acct: [id number] Name: JING RICHARDS Rep #: [id number] : 1955 62 From: Santiago Madrid MD PCP: Son Yanes MD Status: REG ER - ER Visit Summary Date of Service: 07/24/17 Chief Complaint: Cough, fever, aches, headache and weakness History of Present Illness: The patient is a 62 M presents with flulike symptoms which include dyspnea, cough that is nonproductive, dyspnea on exertion, myalgias, arthralgias, headache and weakness. He has no other complaints. His symptoms started approximately 48 hours ago. He is diabetic and states he checked his blood sugar and it was 151. He denies any visual change. He denies polyuria, polydipsia or polyphagia. He denies nocturia. He denies dysuria, frequency, urgency or hematuria. The former smoker. Physical Examination: Vital signs are remarkable blood pressure 167/108. He is not febrile, tachycardic, tachypnic or hypoxic. HEENT exam is remarkable for clear nasal drainage. Posterior pharynx without erythema x-ray. Uvula midline. Trach is midline. There is no stridor. There is good breath sounds bilaterally with no wheezing, rales or rhonchi. There is no egophony or increased vocal fremitus. Heart is regular without murmur, gallop or rub. There is no asymmetry, swelling, discoloration, leg vein distention, palpable cords or tenderness along the distribution of the deep venous system. Neuro exam is nonfocal. Test Results: Influenza rapid screen was negative. Emergency Department Course and Treatment: He has symptoms of influenza even though he is not febrile. Rapid influenza screen was obtained and is negative. Treatment Plan: Symptomatic treatment Disposition: Discharged to home with spouse Impression: Acute viral upper respiratory infection This note was generated with [employer] dictation software. It may contain incorrect words, spelling, and punctuation that were not noted in review of the chart prior to signing ED Disposition - Plan for ED Patient: Disposition: Home or Assisted Living Chief Complaint: Cold Sx Instructions: ED Upper Resp Infec No Abx Tx Referrals: Son Yanes MD [Primary Care Provider] - 1 Week if not improving What to do if you have Problems For any increased pain, shortness of breath, bleeding, nausea or vomiting, chest pain, or any unexpected problems, contact your Primary Care Provider. Call [facility] ([phone]) or report to the closest Emergency Room. Call 911 if necessary. 07/24/17 2226 <Electronically signed by Santiago Madrid MD> Date Santiago Madrid MD Cosigner Signature (If Indicated): Date CC: Son Yanes MD Observed: 07/24/2017 Status: F Source: CHIGNIK LAGOON INFLUENZA A+B (RAPID 8:53 PM [facility]) REPOSITORY FLU A/B Rapid Negative test results should be confirmed by culture. Order Rapid Viral Culture for Influenzae A+B ([id number]) if clinically indicated. Influenza Ag, Direct Presumptive NEGATIVE for Influenza A/B Antigen (See Note) Performed By: #### M101.0101 #### [facility] [address] [place], [address] CNNURSE Observed: 07/24/2017 Status: COMPLETED Source: [place] 2:45 PM [facility] REPOSITORY Nurse Visit (FAMPWS) JING RICHARDS ([id number]) 1955 M Date Time Provider Department 07/24/17 2:45 PM MD NURSE FAMPWS During your visit today, we recorded the following information about you: Pulse Blood pressure 88/minute 149/83 Natty Davonte MARIA 07/24/2017 2:56 PM Signed Manual Readin/90 Pulse: 86 BP Rena average: 149/83 P: 88 Reason for blood pressure check - Last BP elevated Patient is: Taking medication as prescribed Yes Took medication today Yes If no, date medication last taken N/A Experiencing side effects No BP continued to be slightly elevated at nurse visit 06/06/17. No BP medication changes were made at that time. Taking all medications as prescribed. Denies any chest pain, shortness of breath, dizziness, or headaches. Daily caffeine use with [place]; caffeine free one. No personal history of tobacco use; no current exposure. Alert and oriented. Pt has been identified by name and birthdate: Yes Allergies reviewed: Yes Latex allergy: no. Medication - prescribed and OTC reviewed and updated: Yes Do you need any prescription refills prior to your next visit: No Health Maintenance: Reviewed and not up to date and provider notified Patient advised that he would be contacted after review by PCP. Natty Arauz LPN Referring Provider: SON YANES [[id number]] Allergies As of Date: 07/24/2017 (No Known Allergies) Date Reviewed: 07/24/2017 Reviewed by: Natty Arauz LPN - Fully Assessed Reason for Visit: Blood Pressure Check [195] Primary Visit Diagnosis:Essential hypertension, benign [I10] Prescriptions as of 07/24/2017 Sig: ENALAPRIL MALEATE 20 MG TABLET Take 1 tablet by mouth twice * TAMSULOSIN 0.4 MG CAPSULE Take 2 capsules by mouth zach* INSULIN NPH AND REG HUMAN INS* Inject 35 Units subcutaneousl* INSULIN REGULAR HUMAN 100 UNI* Inject 25 Units subcutaneousl* INSULIN NPH HUMAN RECOMB 100 * Inject 5 Units subcutaneously* SIMVASTATIN 40 MG TABLET Take 1 tablet by mouth daily * ALBUTEROL SULFATE HFA 90 MCG/* Inhale 2 Puffs as instructed * INSULIN SYRINGE-NEEDLE U-100 * Use as directed with insulin * BLOOD SUGAR DIAGNOSTIC, DRUM-* Testing 2-3 times daily * FREESTYLE LANCETS 28 GAUGE Use as directed. * XALATAN 0.005 % EYE DROPS once daily both eyes * COSOPT 22.3 MG-6.8 MG/ML EYE * twice daily both eyes * ASPIRIN 81 MG TABLET Take one (1) tablet daily . * COMPOUNDED PRESCRIPTION Insulin syringes 0.3cc 31 G u* * B COMPLEX CAPSULE take one tablet daily * MULTIVITAMIN TABLET Take one(1) tablet daily. Problem List As Of Date 07/24/2017 Noted Resolved Diabetes mellitus (HCC) [E11.9] 11/17/2015 More... BENIGN HYPERTENSION [I10] PURE HYPERCHOLESTEROLEM [E78.00] CARPAL TUNNEL SYNDROME [G56.00] GLAUCOMA NOS [H40.9] RECTAL AND ANAL HEMORRHAGE [K62.5] BENIGN NEOPLASM LG BOWEL [D12.6] INVALID FOR* GASTROINTEST HEMORR NOS [K92.2] INVALID FOR* INT HEMORRHOID W/O COMPL [K64.8] INVALID FOR* LUMB/LUMBOSAC DISC DEGEN [M51.37] INVALID FOR* SCIATICA [M54.30] INVALID FOR* BPH with obstruction/lower urinary tract sympto*INVALID FOR* Type 2 diabetes mellitus with microalbuminuria,*INVALID FOR* History of colonic polyps [Z86.010] INVALID FOR* More... Diverticulosis of large intestine without hemor*INVALID FOR* More... Classic SmartForms filed during this visit: Extended Vitals Encounter Status:Closed by NATTY ARAUZ LPN on 07/24/17 PROGRESS Observed: 07/24/2017 Status: COMPLETED Source: [place] 2:42 PM [facility] REPOSITORY HNO ID: [id number] Author: Natty Arauz LPN Service: (none) Author Type: (none) Type: Progress Notes Filed: 07/24/2017 2:56 PM Note Text: Manual Readin/90 Pulse: 86 BP Rena average: 149/83 P: 88 Reason for blood pressure check - Last BP elevated Patient is: Taking medication as prescribed Yes Took medication today Yes If no, date medication last taken N/A Experiencing side effects No BP continued to be slightly elevated at nurse visit 06/06/17. No BP medication changes were made at that time. Taking all medications as prescribed. Denies any chest pain, shortness of breath, dizziness, or headaches. Daily caffeine use with [place]; caffeine free one. No personal history of tobacco use; no current exposure. Alert and oriented. Pt has been identified by name and birthdate: Yes Allergies reviewed: Yes Latex allergy: no. Medication - prescribed and OTC reviewed and updated: Yes Do you need any prescription refills prior to your next visit: No Health Maintenance: Reviewed and not up to date and provider notified Patient advised that he would be contacted after review by PCP. Natty Arauz LPN PROGRESS Observed: 07/20/2017 Status: COMPLETED Source: [place] 12:22 PM [facility] REPOSITORY HNO ID: [id number] Author: Tamia Pruett Cma Service: (none) Author Type: (none) Type: Progress Notes Filed: 07/20/2017 12:23 PM Note Text: Patient scheduled for 07/24/17 for Nurse BP check. The patient has been identified by name and date of : YES I have scheduled the patient for an appointment on 11/12/2017 with PCP and 07/24/17 for a Nurse visit BP check. The patient will report to the lab prior to the visit. PHMA Documentation 07/20/2017 Opts out of [facility] No Appointments Scheduled Scheduled PCP Appt BP > 139/89 Other Appt Appt Date 07/24/2017 Tamia Pruett Cma PROGRESS Observed: 07/20/2017 Status: COMPLETED Source: [place] 12:07 PM [facility] REPOSITORY HNO ID: [id number] Author: Tamia Pruett Cma Service: (none) Author Type: (none) Type: Progress Notes Filed: 07/20/2017 12:23 PM Note Text: Patient no showed to nurse visit appointment scheduled for 07/18/2017. Last appointment with PCP was 05/07/17 and BP was 138/84. Last Nurse visit appointment on 06/06/2017 BP was elevated at 143/66 (bp rena average). Will call patient to try to r/s nurse visit appointment. LAURA Observed: 07/20/2017 Status: COMPLETED Source: [place] 12:00 AM [facility] REPOSITORY Patient Outreach (INTMWS) JING RICHARDS ([id number]) 1955 M Date Time Provider Department 07/20/17 TAMIA PRUETT (CHEMO) INTMWS During your visit today, we recorded the following information about you: Tamia Pruett Cma 07/20/2017 12:23 PM Signed Patient no showed to nurse visit appointment scheduled for 07/18/2017. Last appointment with PCP was 05/07/17 and BP was 138/84. Last Nurse visit appointment on 06/06/2017 BP was elevated at 143/66 (bp rena average). Will call patient to try to r/s nurse visit appointment. Tamia Pruett Cma 07/20/2017 12:23 PM Signed Patient scheduled for 07/24/17 for Nurse BP check. The patient has been identified by name and date of : YES I have scheduled the patient for an appointment on 11/12/2017 with PCP and 07/24/17 for a Nurse visit BP check. The patient will report to the lab prior to the visit. PHMA Documentation 07/20/2017 Opts out of [facility] No Appointments Scheduled Scheduled PCP Appt BP ANDgt; 139/89 Other Appt Appt Date 07/24/2017 Tamia Pruett [employer] Allergies As of Date: 07/20/2017 (No Known Allergies) Date Reviewed: 07/02/2017 Reviewed by: Surendra (Rn) SANIYA Gonzalez - Fully Assessed Reason for Visit: PHMA/Care Gap Outreach [1933] Prescriptions as of 07/20/2017 Sig: ENALAPRIL MALEATE 20 MG TABLET Take 1 tablet by mouth twice * TAMSULOSIN 0.4 MG CAPSULE Take 2 capsules by mouth zach* INSULIN NPH AND REG HUMAN INS* Inject 35 Units subcutaneousl* INSULIN REGULAR HUMAN 100 UNI* Inject 25 Units subcutaneousl* INSULIN NPH HUMAN RECOMB 100 * Inject 5 Units subcutaneously* SIMVASTATIN 40 MG TABLET Take 1 tablet by mouth daily * ALBUTEROL SULFATE HFA 90 MCG/* Inhale 2 Puffs as instructed * INSULIN SYRINGE-NEEDLE U-100 * Use as directed with insulin * BLOOD SUGAR DIAGNOSTIC, DRUM-* Testing 2-3 times daily * FREESTYLE LANCETS 28 GAUGE Use as directed. * XALATAN 0.005 % EYE DROPS once daily both eyes * COSOPT 22.3 MG-6.8 MG/ML EYE * twice daily both eyes * ASPIRIN 81 MG TABLET Take one (1) tablet daily . * COMPOUNDED PRESCRIPTION Insulin syringes 0.3cc 31 G u* * B COMPLEX CAPSULE take one tablet daily * MULTIVITAMIN TABLET Take one(1) tablet daily. Problem List As Of Date 07/20/2017 Noted Resolved Diabetes mellitus (HCC) [E11.9] 11/17/2015 More... BENIGN HYPERTENSION [I10] PURE HYPERCHOLESTEROLEM [E78.00] CARPAL TUNNEL SYNDROME [G56.00] GLAUCOMA NOS [H40.9] RECTAL AND ANAL HEMORRHAGE [K62.5] BENIGN NEOPLASM LG BOWEL [D12.6] INVALID FOR* GASTROINTEST HEMORR NOS [K92.2] INVALID FOR* INT HEMORRHOID W/O COMPL [K64.8] INVALID FOR* LUMB/LUMBOSAC DISC DEGEN [M51.37] INVALID FOR* SCIATICA [M54.30] INVALID FOR* BPH with obstruction/lower urinary tract sympto*INVALID FOR* Type 2 diabetes mellitus with microalbuminuria,*INVALID FOR* History of colonic polyps [Z86.010] INVALID FOR* More... Diverticulosis of large intestine without hemor*INVALID FOR* More... Encounter Status:Closed by TAMIA PRUETT CMA on 07/20/17 ALLERGIES ALLERGIES DATE TYPE / CODE NAME / CODE REACTION SEVERITY SOURCE 06/25/[address] No [address] [facility] Allergy/416 Allergies/C09499 Hospital 390472(SNOM 0388(RXNORM) Repository ED CT) Drug NO KNOWN [facility] Class/13093 ALLERGIES [address] [place] 1003(SNOMED Repository CT) ENCOUNTERS ENCOUNTERS ADMIT/DISCHARGE ACCOUNT ADMITTING ENCOUNTER LOCATION SOURCE NUMBER CLASS 06/26/2018/07/01/20 [id number] Ambulatory [address] Repository 06/25/2018/06/25/20 [id number] Ambulatory BMSBuilding:B [place] [address] Repository 06/20/2018 [id number] Ambulatory [facility] Hospital ing:LAB Repository 06/19/2018/06/19/20 [id number] Ambulatory [address] Repository 03/27/2018/03/27/20 [id number] Ambulatory BMSBuilding:B [place] [address] Repository 03/23/2018 [id number] Ambulatory [facility] Hospital ing:LAB Repository 12/26/2017/12/27/19 [id number] Ambulatory BMSBuilding:B [place] [address] Repository 12/20/2017 [id number] Ambulatory [facility] Hospital ing:LAB Repository 10/01/2017/10/02/19 [id number] Ambulatory BMSBuilding:B [place] [address] Repository 07/24/2017/07/24/19 [id number] Emergency [address] Hospital ing:ED Repository 07/24/2017/07/24/[id number] Repository PAYERS PAYERS ENCOUNTER GUARANTOR PAYER SUBSCRIBER SOURCE 06/25/2018 JING Castaneda Primary JING Lan [id number] Insurance:MEDICARE HENRYDOB: Community TENA PART A [address] Number: Repository [id number]: 330 [id number] [phone] (HP) Date:2018-03-27 06/25/2018 Secondary JING F [place] Insurance:MED MUT HENRYDOB: [address]12-24UNK Hospital Number: Repository [id number] Date:6412-06-04NJ [address] [place] [address]OY: 06/25/2018 Tertiary NOT GIVENUNK [place] Insurance:SELF PAY [facility] Number: Effective Repository Date:2018-06-25 06/20/2018 JING F Primary JING F [place] [id number] Insurance:MEDICARE HENRYDOB: [facility] TENA PART A [address] Number: Repository [id number]: 330 [id number] [phone] () Date:2018-06-20 06/20/2018 Secondary JING Castaneda [place] Insurance:UNITED HLTH HENRYDOB: [facility] CARE [address] [place] [address] [id number] Number: Repository [id number] Date:4760-51-79[address], [place] [address]BQ: 06/20/2018 Tertiary NOT GIVENUNK [place] Insurance:SELF PAY [facility] Number: Effective Repository Date:2018-06-20 03/27/2018 JING F Primary JING F [place] [id number] Insurance:MEDICARE HENRYDOB: Community TENA PART A [address] Number: Repository [id number]: 330 [id number] [phone] (HP) Date:2018-01-01 03/27/2018 Secondary JING F [place] Insurance:UNITED HLTH HENRYDOB: Community CARE [address] [place] [address] [id number] Hospital Number: Repository [id number] Date:8066-54-82IN [id number] [place] [address]CL: 03/27/2018 Tertiary NOT GIVENUNK [place] Insurance:SELF PAY [facility] Number: Effective Repository Date:2018-03-27 03/23/2018 JING F Primary JING F [place] [id number] Insurance:MEDICARE HENRYDOB: Community TENA PART A [facility] [id number] Number[place] Repository [id number]: 330 [id number] [phone] () Date:2018-03-23 03/23/2018 Secondary JING F [place] Insurance:UNITED HLTH HENRYDOB: Community CARE [id number] Hospital Number: Repository [id number] Date:1215-50-56KD [facility] [id number] [place] [address]RH: 03/23/2018 Tertiary NOT GIVENUNK [place] Insurance:SELF PAY [facility] Number: Effective Repository Date:2018-03-23 12/26/2017 JING F Primary JING F [place] [id number] Insurance:MEDICARE HENRYDOB: Community TENA PART A [facility] [id number] Number[place] Repository [id number]: 330 [id number] [phone] () Date:2017-10-01 12/26/2017 Secondary JING F [place] Insurance:UNITED HLTH HENRYDOB: Community CARE [id number] Hospital Number: Repository [id number] Date:8978-86-31ZC [address]VS, [place] [address]EQ: 12/26/2017 Tertiary NOT GIVENUNK [place] Insurance:SELF PAY [facility] Number: Effective Repository Date:2018-01-03 12/20/2017 JING F Primary JING F [place] [id number] Insurance:MEDICARE HENRYDOB: Community TENA PART A [facility] [id number] Number[place] Repository [id number]: 330 [id number] [phone] () Date:2017-12-20 12/20/2017 Secondary JING F [place] Insurance:UNITED HLTH HENRYDOB: Community CARE [address] [place] [address] [id number] Hospital Number: Repository [id number] Date:0172-45-19HN[address] [address]QA: 12/20/2017 Tertiary NOT GIVENUNK [place] Insurance:SELF PAY [facility] Number: Effective Repository Date:2017-12-20 10/01/2017 JING F Primary JING F [place] [id number] Insurance:MEDICARE HENRYDOB: Community TENA PART A [facility] [id number] Number: Repository [address]Dfr: 330 [id number] [phone] () Date:2017-07-04 10/01/2017 Secondary JING F [place] Insurance:UNITED HLTH HENRYDOB: Community CARE [id number] [id number] Hospital Number: Repository [id number] Date:6997-00-41ZZ [id number] [place] [address]NY: 10/01/2017 Tertiary NOT GIVENUNK [place] Insurance:SELF PAY [facility] Number: Effective Repository Date:2017-07-04 07/24/2017 JING F Primary JING F [place] [id number] Insurance:MEDICARE HENRYDOB: Community TENA PART A [facility] [id number] Number[place] Repository [id number]: 330 [id number] [phone] () Date:2017-07-24 07/24/2017 Secondary JING F [place] Insurance:UNITED HLTH HENRYDOB: Community CARE [address] [place] [address] [id number] Hospital Number: Repository [id number] Date:4666-73-79TD [id number] [place] [address]ZR: 07/24/2017 Tertiary NOT GIVENUNK [place] Insurance:SELF PAY [facility] Effective Rep[facility] Date:2017-07-24
== END ==
PROVIDERS: Family Provider Internal Medicine; PCP Internal Medicine; Referring Provider Nurse Practitioner; Visit Provider Nurse Practitioner
DX: E11.59 Type 2 diabetes mellitus with other circulatory complications (principal); I10 Essential (primary) hypertension; Z11.59 Encounter for screening for other viral diseases
CPT/HCPCS: 36415; 80053; 82043; 82570; 83036

== ENCOUNTER → 2018-09-21 07:16 | Outpatient (CLI) | payer MEDICARE, OTHER, SELFPAY ==
[2018-06-25 11:03] VITALS: BMI 27.8
[2018-09-21 08:56] LABS: ALB/GLOB Ratio 0.9 RATIO (0.9-2.4); AST(SGOT) 19 U/L (15-37); Alanine Aminotransfer ALT/SGPT 19 U/L (16-61); Albumin, Serum 3.2 g/dL (3.2-5.0); Alkaline Phosphatase 106 U/L (45-117); Anion Gap 5 (5-15); BUN 17 mg/dL (7-18); BUN/Creat Ratio 19.7 RATIO (10-20); Calcium,Total 8.5 mg/dL (8.5-10.1); Chloride 109 mmol/L (98-107); Cholesterol 142 mg/dL (200); Creatinine, Serum 0.86 mg/dL (0.70-1.30); EST Glomerular Filtration Rate 94 mL/min (>60); Est Glom Filt Rate - Afr Amer 114 mL/min (>60); Globulin 3.4 g/dL (2.2-4.2); Glucose 179 mg/dL (74-106); High Density Lipoprotein 68 mg/dL; Protein, Total 6.6 g/dL (6.4-8.2); Sodium Level 139 mmol/L (136-145); Triglycerides 70 mg/dL; Very Low Density Lipoprotein 14 mg/dL (5-40)
== END ==
PROVIDERS: Family Provider Internal Medicine; PCP Internal Medicine; Referring Provider Nurse Practitioner; Visit Provider Nurse Practitioner
DX: E11.319 Type 2 diabetes mellitus with unspecified diabetic retinopathy without macular edema (principal)
CPT/HCPCS: 36415; 80053; 80061; 83036

== ENCOUNTER 2022-07-03 19:02 | Emergency (ER) | payer MEDICARE, OTHER, SELFPAY ==
[2022-07-03 19:02] VITALS: BP 147/85; PULSE 73; RESP 18; TEMP 36.3; O2SAT 96; BMI 25.0
--- NOTE | 2022-07-03 20:16 | EKG12_ITS ---
Test Reason : N/V DIZZY Blood Pressure : / mmHG Vent. Rate : 070 BPM Atrial Rate : 070 BPM P-R Int : 154 ms QRS Dur : 086 ms QT Int : 396 ms P-R-T Axes : 026 -22 -05 degrees QTc Int : 427 ms Normal sinus rhythm Minimal voltage criteria for LVH, may be normal variant ( R in aVL ) Borderline ECG Confirmed by MARNI FRANK, SIRI ([id number]), news assignment editor DAVID SCOTT ([id number]) on 07/05/2022 11:55:14 AM Referred By: Confirmed By:SIRI GRIDER MD
[2022-07-03 20:34] LABS: Absolute Lymphocyte Count 2.32 X10^3/uL (0.83-4.51); Eosinophil# 0.35 X10^3/uL; Eosinophils% 3.4 % (0-5); Hematocrit 42.3 % (40-54); Hemoglobin 14.8 g/dL (13.0-16.5); Lymphocyte # 2.32 X10^3/ul (0.83-4.51); Lymphocyte % 22.4 % (19-41); Mean Corpuscular Hgb 31.3 pg (27.0-32.0); Mean Corpuscular Volume 89.4 fL (80-94); Mean Platelet Vol. 11.5 fl (6.2-12.0); Monocyte% 5.8 % (0-10); NRBC Flagged by Analyzer 0 % (0-5); Neutrophil # 6.97 X10^3/uL (2.7-7.7); Platelet Count 243 K/mm3 (150-450); RBC Distribution Width CV 12.7 % (11.6-14.6); RBC Distribution Width SD 41.4 fl (35.1-43.9); Red Blood Count 4.73 M/mm3 (4.6-6.2); White Blood Count 10.4 K/mm3 (4.4-11.0)
--- NOTE | 2022-07-03 20:48 | CT_ITS ---
EXAM: CT HEAD WITHOUT INTRAVENOUS CONTRAST CLINICAL INDICATION: vertigo TECHNIQUE: Multiple axial images were obtained of the head without intravenous contrast. CTDIvol = ( 44.99 ) mGy, DLP = ( 846.73 ) mGycm This CT exam was performed using one or more of the following dose reduction techniques: automated exposure control, adjustment of the mA and/or kV according to patient size, and/or use of iterative reconstruction technique. This report was created using [employer] report generation technology. COMPARISON: None. FINDINGS: BRAIN AND EXTRA-AXIAL SPACES: No acute intracranial hemorrhage, mass effect or edema. No evidence of acute cortical stroke. Periventricular small vessel ischemic change. No midline shift or hydrocephalus. Diffuse parenchymal atrophy. Posterior fossa structures are unremarkable. Basal cisterns are patent. BONES/JOINTS: Unremarkable. No discrete lytic or blastic abnormalities. VASCULATURE: Atherosclerotic calcifications of the carotid siphons and vertebrobasilar arteries. SINUSES: Unremarkable as visualized. Clear. MASTOID AIR CELLS: Visualized sinuses and mastoid air cells are clear. ORBITS: Visualized globes, extraocular muscles, optic nerves and retrobulbar fat appear unremarkable. CT/Brain/Head without Contrast IMPRESSION: 1. No evidence of acute intracranial pathology. 2. Diffuse involutional changes and chronic ischemic small vessel white matter disease. Electronically Signed: Walker De Paz MD at 21:31 EST ,
[2022-07-03 20:53] LABS: ALB/GLOB Ratio 1.1 RATIO (0.9-2.4); AST(SGOT) 20 U/L (15-37); Alanine Aminotransfer ALT/SGPT 25 U/L (16-61); Albumin, Serum 3.7 g/dL (3.2-5.0); Alkaline Phosphatase 111 U/L (45-117); Anion Gap 5 (5-15); BUN 19 mg/dL (7-18); BUN/Creat Ratio 21.1 RATIO (10-20); Calcium,Total 9.6 mg/dL (8.5-10.1); Chloride 109 mmol/L (98-107); EST Glomerular Filtration Rate 89 mL/min (>60); Est Glom Filt Rate - Afr Amer 108 mL/min (>60); Estimated Creatinine Clearance 73.44 ml/min; Globulin 3.5 g/dL (2.2-4.2); Glucose 169 mg/dL (74-106); Lipase 91 U/L (73-393); Potassium 4.1 mmol/L (3.5-5.1); Protein, Total 7.2 g/dL (6.4-8.2); Sodium Level 142 mmol/L (136-145); Troponin-I HS 6 pg/mL (3.0-78.0)
[2022-07-03] MEDS: Ondansetron 4 MG/2 ML Vial IV (20:56)
[2022-07-03] MEDS: Meclizine HCl 25 MG Tablet PO (20:56)
[2022-07-03] MEDS: 0.9% Normal Saline 1,000 ML 125 ML IV (20:57)
[2022-07-03 21:09] LABS: Mucous, Urine 0 SEEN /hpf (<or=2+); Red Blood Cells-Urine 0 SEEN /hpf (0-5); Squamous Epithelial Cells - UA 0 SEEN /hpf (0-5); White Blood Cells 0 SEEN /hpf (0-5)
[2022-07-03 21:26] LABS: Color, Urine Yellow (Yellow); Glucose, Dipstick Normal (Normal); Ketone-Dipstick Negative (Negative); Leukocyte Esterase-Dipstick 25 /ul (Negative); Nitrite-Dipstick Negative (Negative); Occult Blood-Urine Negative /ul (Negative); Protein-Dipstick 30 mg/dl (Negative); Urine Bilirubin Dipstick Negative (Negative); Urine Clarity Sl. Cloudy (Clear); Urine Urobilinogen Normal (Normal)
[2022-07-03 21:56] LABS: Amorphous Sediment 1+; Bacteria 1+ /hpf (None Seen)
[2022-07-03 22:00] VITALS: BP 164/99; PULSE 75; RESP 14; O2SAT 100
--- NOTE | 2022-07-03 22:46 | EDS_ITS ---
HPI History of Present Illness Chief Complaint: Nausea/Vomiting Informant: patient Narrative Narrative: Patient is a 66-year-old male with history of insulin-dependent diabetes mellitus as well as diabetic retinopathy presenting from home for episodes of dizziness and vomiting. He states 5 days ago he had an episode of feeling dizzy and then off balance/wobbly and vomiting. He felt fine over the weekend and then today around 1 or 2 this afternoon had another episode of dizziness followed by nausea and vomiting. Again he felt off balance. Its worse with sudden movements of his head. Denies any lightheadedness or feeling like he is going to pass out. Denies any vision changes. Denies any ringing in his ears or hearing changes. Does not have a history of vertigo. Did not take any for symptoms prior to arrival. No other complaints at this time. Denies any falls or head injuries. [facility] Medical History Asthma Bilateral cataracts Diabetes type 2, controlled GERD (gastroesophageal reflux disease) Glaucoma Kidney stone prostate problems Vision problems Home Medications dorzolamide 2 % eye drops BC DAILY 10/06/15 [History Last Taken Unknown] latanoprost 0.005 % eye drops 1 drp DAILY 10/06/15 [History Last Taken Unknown] simvastatin 40 mg tablet 40 mg PO DAILY 10/06/15 [History Last Taken Unknown] tamsulosin 0.4 mg capsule 0.4 mg PO DAILY 10/06/15 [History Last Taken Unknown] timolol 0.5 % eye drops BID 10/06/15 [History Last Taken Unknown] albuterol sulfate 90 mcg/actuation aerosol inhaler (ProAir HFA) 2 puff inhalation Q4H PRN Wheezing 07/03/17 [History Last Taken Unknown] aspirin 81 mg tablet,delayed release (Adult Low Dose Aspirin) 81 mg PO QDAY 07/03/17 [History Last Taken Unknown] blood sugar diagnostic (ReliOn Prime Test Strips) #20 ea 07/03/17 [History Last Taken Unknown] blood-glucose meter (ReliOn Prime Meter) #1 ea 07/03/17 [History Last Taken Unknown] insulin NPH isoph U-100 human 100 unit/mL subcutaneous suspension (Novolin N NPH U-100 Insulin isophane) 5 unit subcut QDAY 07/03/17 [History Last Taken Unknown] insulin human U-100 NPH-regulr 70-30 mix 100 unit/mL subcutaneous susp (Humulin 70/30 U-100 Insulin) 35 unit subcut QDAY 07/03/17 [History Last Taken Unknown] insulin regular human 100 unit/mL injection solution (Novolin R Regular U-100 Insulin) 25 unit subcut QPM 07/03/17 [History Last Taken Unknown] insulin syringe-needle U-100 0.5 mL 31 gauge x 5/16 (BD Insulin Syringe Ult- Fine II) #10 ea 07/03/17 [History Last Taken Unknown] multivitamin 1 cap PO QAM 07/03/17 [History Last Taken Unknown] vitamin B complex 1 cap PO QDAY 07/03/17 [History Last Taken Unknown] enalapril maleate 20 mg tablet 20 mg PO BID 07/24/17 [History Last Taken Unknown] hydrocodone-homatropine 5 mg-1.5 mg/5 mL (5 mL) oral syrup 5 ml PO Q6H PRN PRN Cough ##60 07/24/17 [Rx Last Taken Unknown] meclizine 25 mg tablet 25 mg PO TID PRN dizziness #20 tabs 07/03/22 [Rx Last Taken Unknown] Allergy/AdvReac Type Severity Reaction Status Date / Time No Known Allergies Allergy Unverified 09/26/18 10:45 Family History Father Asthma Kidney disease Cancer Brother Heart disease Asthma Sister Heart disease Surgical History H/O eye surgery H/O skin graft Social History Smoking Status: Never smoker second hand exposure: No alcohol intake: never substance use type: does not use caffeine: No ROS ROS ED Constitutional Constitutional ED: Reports other Details: Dizziness ; Denies chills or fever(s) Eyes Eyes: Denies blurry vision or change in vision ENT ENT ED: Denies rhinorrhea or sore throat Cardiovascular Cardiovascular: Denies chest pain Respiratory/Chest Respiratory/Chest: Denies cough Gastrointestinal Gastrointestinal: Reports nausea and vomiting; Denies abdominal pain, constipation or diarrhea Genitourinary Genitourinary ED: Denies dysuria or hematuria Musculoskeletal Musculoskeletal: Denies arthralgias or myalgias Integumentary Denies rash Neurologic Neurologic: Denies headache(s), paresthesias or weakness Psychiatric Psychiatric: Denies anxiety Hematologic/Lymphatic Hematologic/Lymphatic: Denies easy bleeding or easy bruising EXAM Physical Exam Const Vital Signs: 07/03/22 19:02 07/03/22 22:00 Temperature 97.3 F L Temperature Source Temporal Pulse Rate 73 75 Respiratory Rate 18 14 Blood Pressure 147/85 H 164/99 H Blood Pressure Mean 105 120 Pulse Ox 96 100 Oxygen Delivery Method Room Air Room Air Positive well nourished and well developed General Appearance ED: well developed and NAD HEENT Reports TM's clear and moist mucous membranes HEENT Narrative: Negative Paulo-Hallpike maneuver bilaterally Tympanic Membrane ED: Yes TM's clear Eyes PERRL and EOMs intact bilaterally Eyes Narrative: No nystagmus on exam Neck supple and no JVD Neck Narrative: no nuchal rigidity Chest Wall inspection of chest normal and palpation of chest normal Resp normal respiratory effort and clear to auscultation bilaterally Cardio regular rate, regular rhythm and no murmurs GI normal to inspection, nondistended, normoactive bowel sounds and non-tender Extremity normal to inspection General Extremety ED: Negative for edema or tenderness General Extremity: Negative for edema Neuro oriented x3, CN's II-XII intact bilaterally and no sensory deficits noted Neuro Narrative: NIH equals 0. Normal coordination. No truncal ataxia. Normal [id number]. No visual field cut. Sensorium / Orientation: alert Motor Exam: strength 5/5 throughout; Negative for general weakness Psych mental status grossly normal Skin no rashes or lesions noted and no wounds MDM MDM MDM Narrative Medical decision making narrative: Patient evaluated for intermittent episodes of vertigo. His symptoms for started 5 days ago. They returned today. Patient has a normal exam. I am not able to reproduce the symptoms. He does have a couple of times in the ER when he is standing and moving positions that he gets the symptoms. Given patient history of diabetes I did obtain a metabolic work-up and as the symptoms been going on for 5 days albeit intermittently, did obtain a head CT. Work-up is largely normal. CT of the brain does not show any acute process. EKG does not show any acute ischemic changes. I think this is any type of referred cardiac pain/arrhythmia. Urinalysis shows 1+ bacteria and 25 leukocyte esterase but is otherwise normal. He is not having any urinary symptoms. Will send for culture but defer treatment at this time. Patient is given meclizine and Zofran in the ER. He is ambulated with a steady gait. At this time I do not think he requires admission for further evaluation of central vertigo or admission for intractable vertigo. Patient agreeable to plan of care. Is given a prescription for Antivert. Is counseled return precautions. Is encouraged to follow-up with primary care provider. Lab Data Attestation: I reviewed the patient's lab results. Labs: Laboratory Results - last 24 hr 07/03/22 07/03/22 07/03/22 20:25 20:25 20:54 WBC 10.4 RBC 4.73 Hgb 14.8 Hct 42.3 MCV 89.4 MCH 31.3 MCHC 35.0 RDW Std Deviation 41.4 RDW Coeff of [place] 12.7 Plt Count 243 MPV 11.5 Immature Gran % (Auto) 0.400 Neut % (Auto) 67.0 Lymph % (Auto) 22.4 [place] % (Auto) 5.8 Eos % (Auto) 3.4 Baso % (Auto) 1.0 Absolute Neuts (auto) 7.0 Absolute Lymphs (auto) 2.32 Nucleated RBC % 0 Sodium 142 Potassium 4.1 Chloride 109 H Carbon Dioxide 28.0 Anion Gap 5 BUN 19 H Creatinine 0.90 Estim Creat Clear Calc 73.44 Est GFR (MDRD) Af Amer 108 Est GFR (MDRD) Non-Af 89 BUN/Creatinine Ratio 21.1 H Glucose 169 H Calcium 9.6 Total Bilirubin 0.40 AST 20 ALT 25 Alkaline Phosphatase 111 Troponin I High Sens 6 Total Protein 7.2 Albumin 3.7 Globulin 3.5 Albumin/Globulin Ratio 1.1 Lipase 91 Urine Color Yellow Urine Clarity Sl. Cloudy Urine pH 7.0 Ur Specific [place] 1.010 Urine Protein 30 H Urine Glucose (UA) Normal Urine Ketones Negative Urine Occult Blood Negative Urine Nitrite Negative Urine Bilirubin Negative Urine Urobilinogen Normal Ur Leukocyte Esterase 25 H Urine RBC 0 SEEN Urine WBC 0 SEEN Ur Squamous Epith Cells 0 SEEN Amorphous Sediment 1+ Urine Bacteria 1+ Urine Mucus 0 SEEN Radiography Diagnostic Testing: Clinical Impression(s) from Imaging Studies Brain CT 07/03/22 20:48 IMPRESSION: 1. No evidence of acute intracranial pathology. 2. Diffuse involutional changes and chronic ischemic small vessel white matter disease. Electronically Signed: Walker De Paz MD at 21:31 EST , Rhythm Strip Rhythm Strip: Sinus Rhythm Rate: 70 Ectopy: None EKG Initial EKG: Attestation: I personally reviewed and interpreted this EKG as follows: Interpretation: Sinus Rhythm Comments: Normal sinus rhythm rate of 70 bpm Normal intervals Minimal voltage criteria for LVH Normal ST segments Compared to prior EKG on 07/23/2009 no acute changes Discharge Plan Triage Chief Complaint: Nausea/Vomiting ED Provider: Urmila Hoffman Dx/Rx/DC Orders Clinical Impression: Episodic peripheral vertigo, Nausea & vomiting Instructions: ED Vertigo, Unspecified Prescriptions: New meclizine 25 mg tablet 25 mg PO TID PRN (Reason: dizziness) Qty: 20 0RF No Action (DME) insulin syringe-needle U-100 [BD Insulin Syringe Ult-Fine II] 0.5 mL 31 gauge x 5/16 syringe See Dose Instructions .ROUTE .MEDSUPPLY Qty: 10 Rx Instructions: use as directed with insulin injections tid albuterol sulfate [ProAir HFA] 90 mcg/actuation HFA aerosol inhaler 2 puff INHALATION Q4H PRN (Reason: Wheezing) aspirin [Adult Low Dose Aspirin] 81 mg tablet,delayed release (DR/EC) 81 mg PO QDAY vitamin B complex capsule 1 cap PO QDAY multivitamin capsule capsule 1 cap PO QAM insulin NPH and regular human [Humulin 70/30 U-100 Insulin] 100 unit/mL (70- 30) suspension 35 unit SC QDAY insulin regular human [Novolin R Regular U-100 Insuln] 100 unit/mL solution 25 unit SC QPM Label Comments: with supper insulin NPH isoph U-100 human [Novolin N NPH U-100 Insulin] 100 unit/mL konrad pension 5 unit SC QDAY (DME) blood-glucose meter [ReliOn Prime Meter] misc See Dose Instructions .ROUTE .MEDSUPPLY Qty: 1 Rx Instructions: As directed (DME) blood sugar diagnostic [ReliOn Prime Test Strips] strip See Dose Instructions .ROUTE .MEDSUPPLY Qty: 20 Rx Instructions: As directed latanoprost 1 DROP bottle 1 drp DAILY simvastatin 40 MG tablet 40 mg PO DAILY tamsulosin 0.4 MG capsule 0.4 mg PO DAILY timolol 5 ML drops BID dorzolamide 1 DROP bottle BC DAILY enalapril maleate 20 MG tablet 20 mg PO BID Label Comments: hydrocodone-homatropine 5 ML syrup 5 ml PO Q6H PRN PRN (Reason: Cough) Qty: 60 0RF Primary Care Provider: Renetta Yanes Referrals: Renetta Yanes MD [Primary Care Provider] - Activity Restrictions/Additional Instructions: Your urinalysis did show 1+ bacteria but no other signs of infection with no white blood cells. We will send off a culture but defer treatment with antibiotics at this time. Disposition Disposition: Home, Self Care
[2022-07-03 23:00] VITALS: BP 152/64; PULSE 73; RESP 21; O2SAT 94
== END 2022-07-03 23:06 | disposition home or self-care (01) ==
PROVIDERS: Emergency Provider Emergency Medicine; PCP Internal Medicine; Visit Provider Emergency Medicine
DX: H81.399 Other peripheral vertigo, unspecified ear (principal); E11.319 Type 2 diabetes mellitus with unspecified diabetic retinopathy without macular edema; Z79.4 Long term (current) use of insulin; R11.2 Nausea with vomiting, unspecified
CPT/HCPCS: 70450; 80053; 81001; 83690; 84484; 85025; 87086; 87088; 87186; 93005; 96374; 99284; J7030; A4216; J2405

== ENCOUNTER 2023-12-22 16:58 | Inpatient (IN) | payer MEDICARE, OTHER, SELFPAY ==
[2023-12-22 16:59] VITALS: BP 165/75; PULSE 81; RESP 16; TEMP 36.6; O2SAT 95; BMI 26.7
--- NOTE | 2023-12-22 17:00 | EKG12_ITS ---
Test Reason : FALL Blood Pressure : / mmHG Vent. Rate : 082 BPM Atrial Rate : 082 BPM P-R Int : 156 ms QRS Dur : 080 ms QT Int : 366 ms P-R-T Axes : 056 -09 002 degrees QTc Int : 427 ms Normal sinus rhythm Nonspecific ST abnormality Abnormal ECG Confirmed by MARNI FRANK, SIRI ([id number]), tape editor FÁTIMA MINER ([id number]) on 12/24/2023 6:53:11 AM Referred By: Confirmed By:SIRI GRIDER MD
--- NOTE | 2023-12-22 17:02 | EDS_ITS ---
HPI History of Present Illness Chief Complaint: Fall Detail of Chief Complaint: Patient was seen in [facility]. He fell. Injury left hip Informant: patient and EMS Onset/Context/Timing Onset: Hours Mechanism/Context: Blunt Injury and Fall Location of pain/injuries: Left hip Quality of Pain: Dull and Aching Location: Left hip region Current Severity: Mild Maximum Severity: Severe Worsened by: Any type of movement Relieved by: Nothing Associated Symptoms Associated Symptoms: Positive for Loss of function and Inability to ambulate; Negative for Parasthesias, Weakness, Loss of consciousness or Amnesia Narrative Narrative: Patient is a 68-year-old gentleman with history of type 1 diabetes, diabetic retinopathy, hypertension who was staying [place]. He tripped. He fell onto his back/left side. He screamed because he was unable to get up. Squad transported to ER. He complains of pain in the left hip region. He denies head trauma. He denies headache. Denies neck pain. Denies numbness tingling his arms or legs. He denies cardiac respiratory symptoms. He is on a baby aspirin. He is on no other antithrombotic and no anticoagulant. He states he has seen Dr. York in the past. Prior similar symptoms: No Recent Illness/Hospitalization: No [facility] Medical History Vision problems prostate problems Glaucoma Diabetes type 2, controlled Bilateral cataracts Kidney stone GERD (gastroesophageal reflux disease) Asthma Home Medications ?Medication ?Instructions ?Recorded ?Last Taken ?Type dorzolamide 2 % eye drops BC DAILY 10/06/15 Unknown History latanoprost 0.005 % eye drops 1 drp DAILY 10/06/15 Unknown History simvastatin 40 mg tablet 40 mg PO DAILY 10/06/15 Unknown History tamsulosin 0.4 mg capsule 0.4 mg PO DAILY 10/06/15 Unknown History timolol 0.5 % eye drops BID 10/06/15 Unknown History albuterol sulfate 90 mcg/actuation 2 puff inhalation Q4H PRN Wheezing 07/03/17 Unknown History aerosol inhaler (ProAir HFA) aspirin 81 mg tablet,delayed 81 mg PO QDAY 07/03/17 Unknown History release (Adult Low Dose Aspirin) blood sugar diagnostic (ReliOn #20 ea 07/03/17 Unknown History Prime Test Strips) blood-glucose meter (ReliOn Prime #1 ea 07/03/17 Unknown History Meter) insulin NPH isoph U-100 human 100 5 unit subcut QDAY 07/03/17 Unknown History unit/mL subcutaneous suspension (Novolin N NPH U-100 Insulin isophane) insulin human U-100 NPH-regulr 35 unit subcut QDAY 07/03/17 Unknown History 70-30 mix 100 unit/mL subcutaneous susp (Humulin 70/30 U-100 Insulin) insulin regular human 100 unit/mL 25 unit subcut QPM 07/03/17 Unknown History injection solution (Novolin R Regular U-100 Insulin) insulin syringe-needle U-100 0.5 #10 ea 07/03/17 Unknown History mL 31 gauge x /16 (BD Insulin Syringe Ult-Fine II) multivitamin 1 cap PO QAM 07/03/17 Unknown History vitamin B complex 1 cap PO QDAY 07/03/17 Unknown History enalapril maleate 20 mg tablet 20 mg PO BID 07/24/17 Unknown History hydrocodone-homatropine 5 mg-1.5 5 ml PO Q6H PRN PRN Cough ##60 07/24/17 Unknown Rx mg/5 mL (5 mL) oral syrup meclizine 25 mg tablet 25 mg PO TID PRN dizziness #20 tabs 07/03/22 Unknown Rx nitrofurantoin 100 mg PO Q12H 7 days #14 caps 07/06/22 Unknown Rx monohydrate/macrocrystals 100 mg capsule (Macrobid) Allergy/AdvReac Type Severity Reaction Status Date / Time No Known Allergies Allergy Verified 12/22/23 16:58 Family History Father Asthma Kidney disease Cancer Brother Heart disease Asthma Sister Heart disease Surgical History H/O skin graft H/O eye surgery Social History (Updated 12/22/23 @ 17:[address] Santiago Madrid MD) household members: spouse Smoking Status: Never smoker second hand exposure: No alcohol intake: never substance use type: does not use caffeine: No ROS ROS ED Constitutional Constitutional ED: Denies chills or fever(s) Eyes Eyes: Denies blurry vision or change in vision Cardiovascular Cardiovascular: Denies chest pain or palpitations Respiratory/Chest Respiratory/Chest: Denies cough, dyspnea or dyspnea on exertion Gastrointestinal Gastrointestinal: Denies abdominal pain, nausea or vomiting Musculoskeletal Musculoskeletal: Reports other Details: Left hip pain. ; Denies arthralgias, back pain, myalgias or neck pain Integumentary Denies Abrasions or rash Neurologic Neurologic: Denies paresthesias or weakness Hematologic/Lymphatic Hematologic/Lymphatic: Denies easy bleeding or easy bruising EXAM Physical Exam Const Vital Signs: 12/22/23 16:59 12/22/23 17:00 Temperature 97.8 F Temperature Source Temporal Pulse Rate 81 Respiratory Rate 16 Respiratory Effort Normal Respiratory Depth Normal Respiratory Pattern Normal Blood Pressure 165/75 H Blood Pressure Mean 105 Pulse Ox 95 Oxygen Delivery Method Room Air Room Air Positive well nourished and well developed Constitutional Narrative: Patient appears uncomfortable specially moving him from the EMS cot to the examination cot. General Appearance ED: well developed; Negative for NAD HEENT HEENT Narrative: There is no trauma to the ears. There is no trauma to the nose. There is no dental trauma. atraumatic; Negative for tenderness Nose: Negative for septum abnormal Eyes PERRL and EOMs intact bilaterally Neck full ROM General: Negative for tenderness Chest Wall inspection of chest normal and palpation of chest normal Resp normal respiratory effort and clear to auscultation bilaterally Cardio regular rhythm, S1 normal heart sound, S2 normal heart sound and no murmurs Rate: regular rate GI normal to inspection, nondistended, normoactive bowel sounds, non-tender, non- distended and no masses Back/Spine normal to inspection and no thoracic nor lumbar tenderness Extremity Negative for normal to inspection or full ROM Neuro oriented x3, CN's II-XII intact bilaterally, moves all extremities, no sensory deficits noted and No gait normal [place] Coma Scale: document GCS findings Spontaneous Obeys Commands Oriented 15 Sensorium / Orientation: alert Psych mental status grossly normal and thought process normal Skin no rashes or lesions noted, no wounds, skin turgor normal and no jaundice MDM MDM MDM Narrative Medical decision making narrative: Based on history and physical exam patient has a fracture involving the left hip region. This may represent a femoral neck, intertrochanteric or intertrochanteric fracture. Will obtain appropriate blood work chest x-ray and EKG for preoperative risk stratification as well as hip x-ray. Patient was medicated with Dilaudid for his pain and Zofran for nausea. Review of prior records indicates he does have insulin-dependent diabetes, hypertension and complications of his diabetes with diabetic nephropathy and retinopathy. History & Record Review Additional record(s) reviewed:: Prior outpatient record and Prior ED visit Lab Data Attestation: I reviewed the patient's lab results. Lab results narrative: CBC is unremarkable. Electrolyte panel is normal. Glucose is elevated to 19 with a normal CO2 anion gap. Labs: Laboratory Results - last 24 hr 12/22/23 17:25 WBC 10.6 RBC 4.30 L Hgb 13.0 Hct 38.4 L MCV 89.3 MCH 30.2 MCHC 33.9 RDW Std Deviation 43.8 RDW Coeff of [place] 13.2 Plt Count 235 MPV 11.3 Immature Gran % (Auto) 0.500 Neut % (Auto) 51.5 Lymph % (Auto) 35.8 [place] % (Auto) 7.9 Eos % (Auto) 3.5 Baso % (Auto) 0.8 Absolute Neuts (auto) 5.5 Absolute Lymphs (auto) 3.78 Nucleated RBC % 0 PT 12.8 INR 1.0 APTT 26.1 Sodium 137 Potassium 4.8 Chloride 104 Carbon Dioxide 28.0 Anion Gap 5 BUN 18 Creatinine 1.02 Estim Creat Clear Calc 63.00 Est GFR (MDRD) Af Amer 93 Est GFR (MDRD) Non-Af 77 BUN/Creatinine Ratio 17.6 Glucose 219 H Calcium 9.3 Radiography Chest X-Ray - ED: 1 View (Chest pressure was obtained. Cardiac silhouette and size normal. Lung parenchyma is unremarkable. Perihilar region unremarkable. No abnormality osseous structures. This independent reviewed interpreted by me as well.) and Read by ED Physician (Three-view x-ray of the left hip reveals a basicervical femoral neck fracture without displacement. This is apparently reviewed interpreted by me at 07/30/2002.) EKG Initial EKG: Attestation: I personally reviewed and interpreted this EKG as follows: Interpretation: Sinus Rhythm (Rate is 82. There is artifact which the computer is interpreting as nonspecific ST-T wave changes. AL interval is 156 ms. QRS duration 80 ms. QT duration 3 and 66 ms. [place] is normal. In my opinion the EKG is normal) Treatment and Re-Evaluation Narrative: Case discussed with Douglas Guan. Would like admitted to medicine with consult to him. Spoke with Dr. Burch the hospitalist. Discharge Plan Triage Chief Complaint: Fall ED Provider: Santiago Madrid Dx/Rx/DC Orders Clinical Impression: Basicervical fracture of neck of left femur, Insulin dependent diabetes mellitus with complications, Hypertension associated with diabetes, Injury due to fall Prescriptions: No Action (DME) insulin syringe-needle U-100 [BD Insulin Syringe Ult-Fine II] 0.5 mL 31 gauge x 5/16 syringe See Dose Instructions .ROUTE .MEDSUPPLY Qty: 10 Rx Instructions: use as directed with insulin injections tid albuterol sulfate [ProAir HFA] 90 mcg/actuation HFA aerosol inhaler 2 puff INHALATION Q4H PRN (Reason: Wheezing) aspirin [Adult Low Dose Aspirin] 81 mg tablet,delayed release (DR/EC) 81 mg PO QDAY vitamin B complex capsule 1 cap PO QDAY multivitamin capsule 1 cap PO QAM insulin NPH and regular human [Humulin 70/30 U-100 Insulin] 100 unit/mL (70- 30) suspension 35 unit SC QDAY insulin regular human [Novolin R Regular U100 Insulin] 100 unit/mL solution 25 unit SC QPM Patient Comments: with supper insulin NPH isoph U-100 human [Novolin N NPH U-100 Insulin] 100 unit/mL suspension 5 unit SC QDAY (DME) blood-glucose meter [ReliOn Prime Meter] misc See Dose Instructions .ROUTE .MEDSUPPLY Qty: 1 Rx Instructions: As directed (DME) blood sugar diagnostic [ReliOn Prime Test Strips] strip See Dose Instructions .ROUTE .MEDSUPPLY Qty: 20 Rx Instructions: As directed latanoprost 1 DROP bottle 1 drp DAILY simvastatin 40 MG tablet 40 mg PO DAILY tamsulosin 0.4 MG capsule 0.4 mg PO DAILY timolol 5 ML drops BID dorzolamide 1 DROP bottle BC DAILY enalapril maleate 20 MG tablet 20 mg PO BID Patient Comments: hydrocodone-homatropine 5 ML syrup 5 ml PO Q6H PRN PRN (Reason: Cough) Qty: 60 0RF meclizine 25 mg tablet 25 mg PO TID PRN (Reason: dizziness) Qty: 20 0RF nitrofurantoin monohyd/m-cryst [Macrobid] 100 mg capsule 100 mg PO Q12H 7 Days Qty: 14 0RF Rx Instructions: must administer with a meal/food Primary Care Provider: Renetta Yanes Referrals: Renetta Yanes MD [Primary Care Provider] - Print Language: Estonian Disposition Disposition: Home, Self Care
[2023-12-22] MEDS: Ondansetron 4 MG/2 ML Vial IV (17:28)
[2023-12-22] MEDS: 0.9% Normal Saline (1000mL) 1,000 ML 150 ML IV (17:28)
[2023-12-22] MEDS: HYDROmorphone 1 MG/ML Syringe 0.5 MG IV (17:29)
[2023-12-22 17:38] LABS: Absolute Lymphocyte Count 3.78 X10^3/uL (0.83-4.51); Absolute Neutrophil Count 5.5 X10^3/uL (2.0-7.7); Basophil# 0.08 X10^3/uL; Basophil% 0.8 % (0-1); Eosinophil# 0.37 X10^3/uL; Eosinophils% 3.5 % (0-5); Hematocrit 38.4 % (40-54); Lymphocyte # 3.78 X10^3/ul (0.83-4.51); Lymphocyte % 35.8 % (19-41); Mean Corp Hgb Conc 33.9 g/dL (32-36); Mean Corpuscular Hgb 30.2 pg (27.0-32.0); Mean Corpuscular Volume 89.3 fL (80-94); Mean Platelet Vol. 11.3 fl (6.2-12.0); Monocyte# 0.83 X10^3/uL; Monocyte% 7.9 % (0-10); NRBC Flagged by Analyzer 0 % (0-5); Neutrophil # 5.46 X10^3/uL (2.7-7.7); Neutrophil % 51.5 % (47-70); Platelet Count 235 K/mm3 (150-450); RBC Distribution Width CV 13.2 % (11.6-14.6); RBC Distribution Width SD 43.8 fl (35.1-43.9); White Blood Count 10.6 K/mm3 (4.4-11.0)
[2023-12-22 17:47] LABS: Prothrombin Time (Protime)PT. 12.8 SECONDS (11.7-14.9)
[2023-12-22 17:48] LABS: Partial Thromboplast Time 26.1 Seconds (24.1-36.2)
[2023-12-22 18:00] LABS: Anion Gap 5 (5-15); BUN 18 mg/dL (7-18); BUN/Creat Ratio 17.6 RATIO (10-20); Calcium,Total 9.3 mg/dL (8.5-10.1); Chloride 104 mmol/L (98-107); Creatinine, Serum 1.02 mg/dL (0.70-1.30); EST Glomerular Filtration Rate 77 mL/min (>60); Est Glom Filt Rate - Afr Amer 93 mL/min (>60); Glucose 219 mg/dL (74-106); Potassium 4.8 mmol/L (3.5-5.1); Sodium Level 137 mmol/L (136-145)
--- NOTE | 2023-12-22 18:00 | RAD_ITS ---
INDICATION: Preop EXAMINATION/TECHNIQUE: X-RAY - XR Chest 1 View COMPARISON: None. FINDINGS: LINES/DEVICES: None. LUNGS: No consolidation, edema or effusion. No pneumothorax. MEDIASTINUM AND CARDIOVASCULAR STRUCTURES: Cardiac silhouette not enlarged. Aortic atherosclerosis. BONES AND SOFT TISSUES: Unremarkable. RAD/Chest 1 View (Portable) IMPRESSION: No radiographic evidence of acute cardiopulmonary disease. Electronically Signed: Andrew Narayanan MD at 19:34 EDT ,
--- NOTE | 2023-12-22 18:00 | RAD_ITS ---
INDICATION: Injury/Pain EXAMINATION/TECHNIQUE: X-RAY - XR Hip Unilateral with Pelvis when performed; 2-3 Views COMPARISON: Chest radiograph on same day FINDINGS: HIPS: Linear lucency concerning for nondisplaced left intratrochanteric fracture. Left femoral head remains aligned with the acetabulum with mild joint space narrowing and minimal osteophyte formation. Normal right hip alignment with moderate joint space narrowing. . PELVIC BONES: No displaced fracture, destructive or sclerotic lesions is seen within the osseous pelvis. Note that overlapping bowel shadows may however obscure fine detail. Sacroiliac joints are unremarkable. No widening of the pubic symphysis. SOFT TISSUES: Peripheral atherosclerosis. Nonspecific 2.5 cm coarse density projects over the proximal right thigh. RAD/HIP, UNI W/ Pelvis 2-3 Views IMPRESSION: Findings concerning for nondisplaced left intertrochanteric femur fracture. Electronically Signed: Andrew Narayanan MD at 19:33 EDT ,
--- NOTE | 2023-12-22 18:10 | PCM.HP.STD ---
HPI - General General Date of Admission: 12/22/23 Date of Service: 12/22/23 Chief Complaint: Hip fracture HPI Narrative JING RICHARDS, is a 68 M who presents to the ED following a recent fall on his back/left side. He has a past medical history of type 1 diabetes, diabetic retinopathy, hypertension. He was brought to the ED for these concerns. He was working in his garage, there is an area of on even cement where he tripped and fell on his left side. No concerns regarding blackout, palpitations, nausea, vomiting. No dizziness in the past. In the ED he underwent a 3 view x-ray of the left hip showing a basicervical femoral neck fracture without displacement. This was discussed with orthopedics and he is planned for surgery tomorrow. He is being admitted to the medicine service for management of his medical concerns. [facility] Medical History Vision problems prostate problems Glaucoma Diabetes type 2, controlled Bilateral cataracts Kidney stone GERD (gastroesophageal reflux disease) Asthma Home Medications ?Medication ?Instructions ?Recorded ?Last Taken ?Type dorzolamide 2 % eye drops BC DAILY 10/06/15 Unknown History latanoprost 0.005 % eye drops 1 drp DAILY 10/06/15 Unknown History simvastatin 40 mg tablet 40 mg PO DAILY 10/06/15 Unknown History tamsulosin 0.4 mg capsule 0.4 mg PO DAILY 10/06/15 Unknown History timolol 0.5 % eye drops BID 10/06/15 Unknown History albuterol sulfate 90 mcg/actuation 2 puff inhalation Q4H PRN Wheezing 07/03/17 Unknown History aerosol inhaler (ProAir HFA) aspirin 81 mg tablet,delayed 81 mg PO QDAY 07/03/17 Unknown History release (Adult Low Dose Aspirin) blood sugar diagnostic (ReliOn #20 ea 07/03/17 Unknown History Prime Test Strips) blood-glucose meter (ReliOn Prime #1 ea 07/03/17 Unknown History Meter) insulin NPH isoph U-100 human 100 5 unit subcut QDAY 07/03/17 Unknown History unit/mL subcutaneous suspension (Novolin N NPH U-100 Insulin isophane) insulin human U-100 NPH-regulr 35 unit subcut QDAY 07/03/17 Unknown History 70-30 mix 100 unit/mL subcutaneous susp (Humulin 70/30 U-100 Insulin) insulin regular human 100 unit/mL 25 unit subcut QPM 07/03/17 Unknown History injection solution (Novolin R Regular U-100 Insulin) insulin syringe-needle U-100 0.5 #10 ea 07/03/17 Unknown History mL 31 gauge x 5/16 (BD Insulin Syringe Ult-Fine II) multivitamin 1 cap PO QAM 07/03/17 Unknown History vitamin B complex 1 cap PO QDAY 07/03/17 Unknown History enalapril maleate 20 mg tablet 20 mg PO BID 07/24/17 Unknown History hydrocodone-homatropine 5 mg-1.5 5 ml PO Q6H PRN PRN Cough ##60 07/24/17 Unknown Rx mg/5 mL (5 mL) oral syrup meclizine 25 mg tablet 25 mg PO TID PRN dizziness #20 tabs 07/03/22 Unknown Rx nitrofurantoin 100 mg PO Q12H 7 days #14 caps 07/06/22 Unknown Rx monohydrate/macrocrystals 100 mg capsule (Macrobid) Allergy/AdvReac Type Severity Reaction Status Date / Time No Known Allergies Allergy Verified 12/22/23 16:58 Family History Father Asthma Kidney disease Cancer Brother Heart disease Asthma Sister Heart disease Surgical History H/O skin graft H/O eye surgery Social History (Updated 12/22/23 @ 17:[address] Santiago Madrid MD) household members: spouse Smoking Status: Never smoker second hand exposure: No alcohol intake: never substance use type: does not use caffeine: No ROS Review of Systems ROS Unobtainable: Denies due to encephalopathy, due to endotracheal tube, due to mental condition, due to mental status or other Constitutional Constitutional: Denies anorexia, change in weight, chills, fatigue, fever(s), malaise, night sweats, weakness or other Eyes Eyes: Denies blurry vision, change in eye color, change in vision, discharge from eye(s), double vision, erythema, eye pain, loss of vision or other ENT HEENT: Denies abnormal hearing, dysphagia, ear pain, epistaxis, headache(s), hearing loss, nasal congestion, nasal discharge, post nasal drip, sinus pressure, sore throat or other Cardiovascular Cardiovascular: Denies chest pain, claudication, dyspnea on exertion, edema, lightheadedness, orthopnea, palpitations, paroxysmal nocturnal dyspnea, rapid heart rate, syncope or other Respiratory/Chest Respiratory/Chest: Denies cough, dyspnea, excessive phlegm production, hemoptysis, productive cough, shortness of breath at rest, shortness of breath with exertion, wheezing or other Gastrointestinal Gastrointestinal: Denies abdominal pain, coffee ground emesis, constipation, diarrhea, dyspepsia, hematemesis, hematochezia, loose stools, melena, nausea, vomiting or other Genitourinary Genitourinary: Reports dysuria, urinary frequency and urinary hesitancy; Denies burning urination, difficulty urinating, hematuria, nocturia, urinary incontinence, urinary urgency or other Musculoskeletal Musculoskeletal: Reports joint pain; Denies arthralgias, back pain, joint stiffness, joint swelling, myalgias, neck pain or other Neurologic Neurologic: Denies abnormal gait, abnormal speech, confusion, disequilibrium, dizziness, focal weakness, headache(s), numbness, paresthesias, seizure-like activity, seizures, syncope, tingling, tremor(s) or other Vital Signs Vital Signs Vital Signs: 12/22/23 16:59 12/22/23 17:00 Temperature 97.8 F Temperature Source Temporal Pulse Rate 81 Respiratory Rate 16 Respiratory Effort Normal Respiratory Depth Normal Respiratory Pattern Normal Blood Pressure 165/75 H Blood Pressure Mean 105 Pulse Ox 95 Oxygen Delivery Method Room Air Room Air Weight Weight: 170 lb 14.4 oz Body Mass Index (BMI) 26.7 Physical Exam Const alert and oriented x3 HEENT normocephalic Eyes PERRL Neck no lymphadenopathy Resp normal respiratory effort and no retractions Cardio regular rate and regular rhythm GI normal to inspection, nondistended, normoactive bowel sounds Extremity Extremity Narrative: Unable to move his left thighs and leg, severe pain on movement left hip. No swelling or edema. Neuro oriented x3 Sensorium / Orientation: awake and alert Results Medical Records Data Attestation: I reviewed the patient's medical records Lab / Micro Data Attestation: I reviewed the patient's lab results. 12/22/23 17:25 12/22/23 17:25 Labs: Laboratory Results - last 24 hr 12/22/23 17:25: WBC 10.6, RBC 4.30 L, Hgb 13.0, Hct 38.4 L, MCV 89.3, MCH 30.2, MCHC 33.9, RDW Std Deviation 43.8, RDW Coeff of [place] 13.2, Plt Count 235, MPV 11.3, Immature Gran % (Auto) 0.500, Neut % (Auto) 51.5, Lymph % (Auto) 35.8, [place] % (Auto) 7.9, Eos % (Auto) 3.5, Baso % (Auto) 0.8, Absolute Neuts (auto) 5.5, Absolute Lymphs (auto) 3.78, Nucleated RBC % 0, PT 12.8, INR 1.0, APTT 26.1, Sodium 137, Potassium 4.8, Chloride 104, Carbon Dioxide 28.0, Anion Gap 5, BUN 18, Creatinine 1.02, Estim Creat Clear Calc 63.00, Est GFR (MDRD) Af Amer 93, Est GFR (MDRD) Non-Af 77, BUN/Creatinine Ratio 17.6, Glucose 219 H, Calcium 9.3 Assessment & Plan Assessment/Plan (1) Injury due to fall: PLAN: Plan 68-year-old male is presenting to the ED following a fall while working in his garage resulting in a left basicervical fracture. He will possibly require surgical fixation and orthopedics is consulted for the same. 1. Neck of femur fracture: -Consult orthopedics -CT hip as requested to further evaluate the fracture -N.p.o. after midnight -Start DVT prophylaxis -[place] pain control with oxycodone 5 mg every 4 hours [pain is well-controlled at this time] -Physical therapy after surgery 2. Type 1 diabetes: -continue insulin NPH, regular insulin 70/30 35 units daily -Insulin per sliding scale -Continue insulin Novolin 25 units every evening as before 3. Hypertension: Continue enalapril 20 mg twice daily 4. Primary prophylaxis coronary artery disease: Hold aspirin for now 5. Vertigo: Hold home meclizine for now, patient not concerned regarding worsening symptoms 6. Dyslipidemia: Continue simvastatin 40 mg daily 7. Benign prostatic hyperplasia: Continue tamsulosin 0.4 mg at bedtime 8. DVT prophylaxis: Heparin 5000 units subcu twice daily
--- NOTE | 2023-12-22 18:15 | NURSING ---
HOSPITALIST IN ER
--- NOTE | 2023-12-22 18:17 | CT_ITS ---
INDICATION: Evaluate fracture for operative management EXAMINATION: CT PELVIS BONE - CT Pelvis W/O Contrast Injection TECHNIQUE: Routine noncontrast bone CT protocol was performed of the pelvis. 2-D reformats were performed by the technologist. A radiation dose optimization technique was used for this scan. IV Contrast dosage and agent: None. COMPARISON: [radiograph on same day. FINDINGS: SOFT TISSUES: Mild lateral hip subcutaneous soft tissue edema. No gross subcutaneous soft tissue or intramuscular hematoma. No radiopaque foreign body. Left inguinal fat-containing hernia without inflammation. BONES/JOINTS: Left intratrochanteric femur fracture with mild impaction and comminution along the inferior medial margin at the lesser trochanter. Left femoral head remains aligned with the acetabulum with moderate joint space narrowing and mild osteophyte formation. Normal right hip alignment with moderate joint space narrowing and osteophyte formation. No right femoral fracture is seen. No fracture of the osseous pelvis normal pubic symphysis alignment. Normal bowel signal and alignment with mild degenerative change. No aggressive osseous lesion. PELVIS: Aortic atherosclerosis without ectasia. Large prostate. Bladder 8.1 x 7.3 x 8.5 cm (261 mL) without wall thickening or surrounding inflammation. No evidence of internal pelvic hemorrhage. Imaged portions of bowel are nondistended without focal wall thickening CT/Pelvis without IV Contrast IMPRESSION: Left intratrochanteric femur fracture with mild impaction and comminution at the lesser trochanter. Moderate bilateral hip osteoarthritis. Electronically Signed: Andrew Narayanan MD at 20:38 EDT ,
--- NOTE | 2023-12-22 18:17 | NURSING ---
MED SURG HOLMAN FEMORAL NECK FRACTURE LEFT
[2023-12-22 19:12] VITALS: BP 152/93; PULSE 79; RESP 16; TEMP 36.3; O2SAT 95
[2023-12-22 19:29] VITALS: PULSE 86; RESP 15; O2SAT 98; BMI 27.1
[2023-12-22 19:37] VITALS: BP 180/79; PULSE 86; RESP 15; TEMP 36.9; O2SAT 98
[2023-12-22 20:44] VITALS: BP 152/80; PULSE 105; RESP 15; TEMP 36.6; O2SAT 94; BMI 27.1
[2023-12-22] MEDS: Lisinopril 20 MG Tablet PO (22:21)
[2023-12-22] MEDS: Heparin Injection (Vial) 5,000 UNIT/ML VIAL 5000 UNIT SC (22:22)
[2023-12-22] MEDS: Tamsulosin HCl 0.4 MG Capsule PO (22:22)
[2023-12-22] MEDS: Atorvastatin Calcium 20 MG Tablet PO (22:22)
[2023-12-22] MEDS: Insulin Lispro 100 UNIT/ML INSULN.PEN SC (22:30)
[2023-12-22 22:44] LABS: Bedside Glucose 190 mg/dL (74-106)
[2023-12-22] MEDS: oxyCODONE 5 MG Tablet PO (22:57)
[2023-12-23] VITALS (14 sets, daily range): BP systolic 149–177; BP diastolic 54–80; PULSE 88–106; RESP 15–18; TEMP 36.4–37.7; O2SAT 92–98
[2023-12-23] MEDS: 0.9% Normal Saline (1000mL) 1,000 ML 150 ML IV ×4 (00:09→17:34)
[2023-12-23] MEDS: Insulin Lispro 100 UNIT/ML INSULN.PEN SC ×5 (02:50→22:13)
[2023-12-23] MEDS: oxyCODONE 5 MG Tablet PO ×2 (02:57→17:29)
[2023-12-23 03:19] LABS: Bedside Glucose 200 mg/dL (74-106)
[2023-12-23 04:22] LABS: Hematocrit 35.2 % (40-54); Hemoglobin 11.9 g/dL (13.0-16.5); Mean Corp Hgb Conc 33.8 g/dL (32-36); Mean Corpuscular Volume 88.7 fL (80-94); Mean Platelet Vol. 11.4 fl (6.2-12.0); Platelet Count 207 K/mm3 (150-450); RBC Distribution Width CV 13.2 % (11.6-14.6); RBC Distribution Width SD 43.3 fl (35.1-43.9); Red Blood Count 3.97 M/mm3 (4.6-6.2)
[2023-12-23 04:44] LABS: Anion Gap 7 (5-15); BUN 13 mg/dL (7-18); BUN/Creat Ratio 16.7 RATIO (10-20); Calcium,Total 8.5 mg/dL (8.5-10.1); Chloride 109 mmol/L (98-107); Creatinine, Serum 0.78 mg/dL (0.70-1.30); EST Glomerular Filtration Rate 105 mL/min (>60); Est Glom Filt Rate - Afr Amer 126 mL/min (>60); Estimated Creatinine Clearance 80.33 ml/min; Glucose 180 mg/dL (74-106); Potassium 3.8 mmol/L (3.5-5.1); Sodium Level 139 mmol/L (136-145)
[2023-12-23] MEDS: Cefazolin 2 GM in 0.9% Normal Saline (100mL Bag) 100 ML IV (06:58)
--- NOTE | 2023-12-23 07:00 | RAD_ITS ---
INDICATION: GAMMA NAIL EXAMINATION/TECHNIQUE: X-RAY - XR Hip Unilateral with Pelvis when performed 4 views. COMPARISON: December 22, 2023 FINDINGS: Four intraoperative images of the left hip were submitted. There is a intertrochanteric fracture. There are screws traversing the femoral neck and the distal diaphysis associated with an intramedullary bill. The alignment appears anatomic. Please refer to the intraoperative report for further discussion. Electronically Signed: Freida Palacios MD at 9:35 EDT , RAD/Hip Min 2 Views (Portable) IMPRESSION: undefined
[2023-12-23 07:12] LABS: Bedside Glucose 189 mg/dL (74-106)
--- NOTE | 2023-12-23 07:59 | CON.PCM_ITS ---
Assessment & Plan Assessment/Plan (1) Intertrochanteric fracture of left hip: PLAN: Plan of care was discussed and reviewed at length with the patient by myself and Dr. Douglas Guan including surgical and nonsurgical treatment options. At this time the patient does wish to proceed with open reduction internal fixation left intertrochanteric hip fracture with short gamma nail. Potential risk benefits and complications of this procedure were reviewed in detail including but not limited to infection nerve and blood vessel damage persistent pain numbness tingling paresthesias blood clot pulmonary believes him and the requirement for possible further surgery. Patient expressed full understanding has no further questions for the doctor does agree to proceed with the above-stated procedure and has signed the appropriate surgery consent form. We will likely plan to use aspirin 81 mg twice daily for blood clot prevention in the perioperative period x 1 month. We will follow the patient postoperatively. HPI Consult Data Date of Consult: 12/23/23 HPI Narrative Reason for Consultation: Left hip fracture HPI Narrative: JING RICHARDS, is a 68 M who presents to [facility] after a fall yesterday in his garage working on a project. He twisted fell and landed on his left side. Hip was normal and pain-free prior to the injury. No pre-existing pain. No head injury or loss of consciousness with the fall. He did not ambulate with an assistive device prior to his fall. He denies a history of DVT or pulmonary embolism. He was unable to stand and walk. He was brought to [facility] by squad x-rays revealed left hip fracture. Orthopedics was consulted. He currently denies knee or ankle pain. Denies right hip pain. Denies numbness or tingling into his feet denies fevers chills or other signs of infection. Per patient report most recent hemoglobin A1c was 7.4. [facility] Medical History Vision problems prostate problems Glaucoma Diabetes type 2, controlled Bilateral cataracts Kidney stone GERD (gastroesophageal reflux disease) Asthma Home Medications ?Medication ?Instructions ?Recorded ?Last Taken ?Type dorzolamide 2 % eye drops See Rx Instructions ophthalmic 10/06/15 Unknown History (eye) BID glaucoma latanoprost 0.005 % eye drops 1 drp ophthalmic (eye) DAILY 10/06/15 Unknown History glaucoma simvastatin 40 mg tablet 40 mg PO DAILY cholesterol 10/06/15 Unknown History tamsulosin 0.4 mg capsule 0.4 mg PO BID prostate 10/06/15 Unknown History timolol 0.5 % eye drops 1 drp ophthalmic (eye) BID glaucoma 10/06/15 Unknown History aspirin 81 mg tablet,delayed 81 mg PO QDAY blood thin 07/03/17 Unknown History release (Adult Low Dose Aspirin) blood sugar diagnostic (ReliOn #20 ea 07/03/17 Unknown History Prime Test Strips) blood-glucose meter (ReliOn Prime #1 ea 07/03/17 Unknown History Meter) insulin regular human 100 unit/mL 12 unit subcut TIDCM diabetes 07/03/17 Unknown History injection solution (Novolin R Regular U-100 Insulin) insulin syringe-needle U-100 0.5 #10 ea 07/03/17 Unknown History mL 31 gauge x 12/05 (BD Insulin Syringe Ult-Fine II) multivitamin 1 cap PO QAM supplement 07/03/17 Unknown History vitamin B complex 1 cap PO BID supplement 07/03/17 Unknown History enalapril maleate 20 mg tablet 20 mg PO BID hypertension 07/24/17 Unknown History hydrocodone-homatropine 5 mg-1.5 5 ml PO Q6H PRN PRN Cough ##60 07/24/17 Unknown Rx mg/5 mL (5 mL) oral syrup Allergy/AdvReac Type Severity Reaction Status Date / Time No Known Allergies Allergy Verified 12/22/23 16:58 Family History Father Asthma Kidney disease Cancer Brother Heart disease Asthma Sister Heart disease Surgical History H/O skin graft H/O eye surgery Social History household members: spouse Smoking Status: Never smoker second hand exposure: No alcohol intake: never substance use type: does not use caffeine: No ROS ROS Narrative All pertinent positives and negatives are documented above remaining review of systems negative Physical Exam Narrative Patient is resting comfortably supine position in hospital bed left hip is shortened and externally rotated. No acute distress at rest. Breathing easily without respiratory distress. Left hip is without gross deformity. Left hip range of motion deferred due to fracture. Good mobility right hip without pain or restriction. Left knee without tenderness. Left ankle without tenderness. Patient is able to actively plantar and dorsiflex bilateral ankles against resistance sensation intact light touch pedal pulses present equal bilaterally neurovascularly intact. Medical Records Data Attestation: I reviewed the patient's medical records Lab / Micro Data Attestation: I reviewed the patient's lab results. 12/23/23 04:10 12/23/23 04:10 Labs: Laboratory Results - last 24 hr 12/22/23 17:25: WBC 10.6, RBC 4.30 L, Hgb 13.0, Hct 38.4 L, MCV 89.3, MCH 30.2, MCHC 33.9, RDW Std Deviation 43.8, RDW Coeff of [place] 13.2, Plt Count 235, MPV 11.3, Immature Gran % (Auto) 0.500, Neut % (Auto) 51.5, Lymph % (Auto) 35.8, [place] % (Auto) 7.9, Eos % (Auto) 3.5, Baso % (Auto) 0.8, Absolute Neuts (auto) 5.5, Absolute Lymphs (auto) 3.78, Nucleated RBC % 0, PT 12.8, INR 1.0, APTT 26.1, Sodium 137, Potassium 4.8, Chloride 104, Carbon Dioxide 28.0, Anion Gap 5, BUN 18, Creatinine 1.02, Estim Creat Clear Calc 63.00, Est GFR (MDRD) Af Amer 93, Est GFR (MDRD) Non-Af 77, BUN/Creatinine Ratio 17.6, Glucose 219 H, Calcium 9.3 12/22/23 22:17: POC Glucose 190 H 12/23/23 02:45: POC Glucose 200 H 12/23/23 04:10: WBC 13.0 H, RBC 3.97 L, Hgb 11.9 L, Hct 35.2 L, MCV 88.7, MCH 30.0, MCHC 33.8, RDW Std Deviation 43.3, RDW Coeff of [place] 13.2, Plt Count 207, MPV 11.4, Sodium 139, Potassium 3.8, Chloride 109 H, Carbon Dioxide 23.0, Anion Gap 7, BUN 13, Creatinine 0.78, Estim Creat Clear Calc 80.33, Est GFR (MDRD) Af Amer 126, Est GFR (MDRD) Non-Af 105, BUN/Creatinine Ratio 16.7, Glucose 180 H, Calcium 8.5 12/23/23 06:52: POC Glucose 189 H Imaging Radiology Impression Chest X-Ray 12/22/23 18:00 IMPRESSION: No radiographic evidence of acute cardiopulmonary disease. Electronically Signed: Andrew Narayanan MD at 19:34 EDT Reading Location ID and State: [facility] / [place] Tel , Service support , Hip/Pelvis X-Ray 12/22/23 18:00 IMPRESSION: Findings concerning for nondisplaced left intertrochanteric femur fracture. Electronically Signed: Andrew Narayanan MD at 19:33 EDT Reading Location ID and State: [facility] / [place] Tel , Service support , Pelvis CT 12/22/23 18:17 IMPRESSION: Left intratrochanteric femur fracture with mild impaction and comminution at the lesser trochanter. Moderate bilateral hip osteoarthritis. Electronically Signed: Andrew Narayanan MD at 20:38 EDT , All above diagnostic imaging was personally reviewed by myself
[2023-12-23 08:16] LABS: Hemoglobin A1c 7.1 % (3.8-5.6)
[2023-12-23] MEDS: Cefazolin 1 GM/50 ML BAG IV ×3 (08:36→22:24)
--- NOTE | 2023-12-23 09:22 | PCM.OP.BLANK ---
Operative Report Date of Procedure: 12/23/23 Preoperative diagnosis: Left hip displaced intertrochanteric fracture Postoperative diagnosis: Same Title of operation: Left hip open reduction internal fixation, intramedullary nail fixation, locked Surgeon: Dr. Douglas Guan Wastewater Superintendent: Angela Salazar PA-C Anesthesia: General Medications: Ancef 2gm, 1 gm IV Anesthesiologist: Dr. Marx /stacey EBL: 20 Indications for surgery: Patient is an 68 -year-old male sustained a hip fracture yesterday. Patient and their family explained diagnosis and treatment options. Patient evaluated by the medical services. Patient did wish to have surgery. Appropriate informed consent obtained and signed. Findings: Patient had a slightly displaced intertrochanteric hip fracture. They underwent standard reduction, internal fixation using a [place] short gamma nail. X-rays taken throughout. press operator assistant, physician certified medical assistant, was utilized throughout the entire procedure. They were vital to the procedure from beginning to end. They help with patient transfer, patient padding and positioning, fracture reduction, maintenance of fracture reduction, internal fixation of implants, wound closure, bandage application, patient transfer. Without psychological assistant, surgical time would have been significantly increased and surgical outcome could have been less optimal. Procedure: Patient was taken to the operating room. Placed under a general anesthetic and transferred to the operating table with the help of the certified medical assistant. With the help of the certified medical assistant patient was prepped and padded for surgery. Operative side foot was well-padded and placed in the traction boot. Uninjured lower extremity was abducted and flexed out of harms way. ANNA hose and SCDs utilized. Fluoroscopy was brought in. With the help of the certified medical assistant and manipulation of the limb, reduction was nicely obtained as verified under AP lateral and oblique fluoroscopic images. . Operative hip/thigh was prepped padded draped in usual orthopedic sterile fashion for the procedure. Longitudinal incision was made just proximal to the greater trochanter. Taken through skin and subcutaneous tissue. Sharp awl was placed on the tip of the greater trochanter. Position verified under AP and lateral fluoroscopic images. This was then taken down inside the bone. Slightly bent ball-tipped guide bill was then placed from the tip of the greater trochanter into the intra-medullary canal of the femur. Its position verified radiographically. Reamer was then done over the tip of this with the help of the certified medical assistant holding the soft tissue protector appropriately. Once reaming was done we placed the short 125? angle device over the guidepin. This was easily introduced. Guide bill removed. Outrigger device was utilized to position a guidepin from the lateral cortex of the femur across the fracture site and into the femoral head in a good position centrally, as noted on AP lateral and oblique fluoroscopic images. This was measured. Appropriate reaming done. Appreciate length lag screw was placed from the lateral cortex of the femur into the femoral head. A small amount of the screw was noted to be protruding laterally as planned. No cartilage penetration of the femoral head noted on any x-ray. Fracture was then compressed with the outrigger device. Proximal cap screw was placed by the certified medical assistant seated down completely, confirmed, and then loosened one fourth turn. We then used the outrigger device to place distal cross locking screw under standard technique. This was confirmed to be of adequate length in good position on AP and lateral images. Outrigger device removed. Final set of AP and lateral proximal x-rays taken and saved. Incisions thoroughly irrigated. Closing by the certified medical assistant with deep 0 Vicryl, mid layer 0 Vicryl, inverted 2-0 Vicryl, skin tasha. Puncture wounds closed with inverted 2-0 Vicryl and tasha. Xeroform 4 x 4's ABD tape applied. Patient was awoken from their anesthetic, transferred back to their own bed with the help of the certified medical assistant and into recovery room in satisfactory condition. Patient will continue to be admitted to the hospital under the hospitalist service. This note was generated with [employer] dictation software. It may contain incorrect words, spelling, and punctuation that were not noted in checking the note before signing.
[2023-12-23 10:37] LABS: Bedside Glucose 211 mg/dL (74-106)
--- NOTE | 2023-12-23 11:10 | PCM.PN.HOSP ---
Reason for Visit Reason for Visit: Diagnoses Displaced intertrochanteric fracture of left femur, initial encounter for closed fracture (12/22/23) Unspecified fall, initial encounter (12/22/23) Subjective Subjective Patient admitted yesterday afternoon for left hip fracture after fall. Had left hip ORIF with intramedullary nail fixation done with Dr. Guan this morning. Saw patient at the bedside early this afternoon, and daughter present. Patient was sitting up comfortably in bed, conversing normally, in no acute distress. He was mildly somnolent and fatigued appearing presumed secondary to sedation. He denied any left hip pain at rest currently but does have mild pain when shifting in bed. This pain is improved from prior to the operation. He is on 2 L of cannula currently but breathing very comfortably with good oxygen saturations. He denies any other concerns at this time. Objective Data Objective Data Vital Signs: Vital Signs Temp Pulse Resp BP Pulse Ox O2 Del Method O2 Flow Rate 97.8 F 91 18 154/61 H 98 Nasal Cannula 4 12/23/23 10:50 12/23/23 10:50 12/23/23 10:50 12/23/23 10:50 12/23/23 10:50 12/23/23 10:50 12/23/23 10:50 Oxygen Flow Rate (L/min) 4 Oxygen Delivery Method Nasal Cannula Weight: 78.6 kg Body Mass Index (BMI) 27.1 Intake & Output: Intake and Output for Last 24 Hours 12/21/23 12/22/23 12/23/23 23:59 23:59 23:59 Intake Total 3150 / 3150 Output Total 500 / 500 Balance 2650 / 2650 Lab / Micro Data 12/23/23 04:10 12/23/23 04:10 Labs: Laboratory Results - last 24 hr 12/22/23 17:25: WBC 10.6, RBC 4.30 L, Hgb 13.0, Hct 38.4 L, MCV 89.3, MCH 30.2, MCHC 33.9, RDW Std Deviation 43.8, RDW Coeff of [place] 13.2, Plt Count 235, MPV 11.3, Immature Gran % (Auto) 0.500, Neut % (Auto) 51.5, Lymph % (Auto) 35.8, [place] % (Auto) 7.9, Eos % (Auto) 3.5, Baso % (Auto) 0.8, Absolute Neuts (auto) 5.5, Absolute Lymphs (auto) 3.78, Nucleated RBC % 0, PT 12.8, INR 1.0, APTT 26.1, Sodium 137, Potassium 4.8, Chloride 104, Carbon Dioxide 28.0, Anion Gap 5, BUN 18, Creatinine 1.02, Estim Creat Clear Calc 63.00, Est GFR (MDRD) Af Amer 93, Est GFR (MDRD) Non-Af 77, BUN/Creatinine Ratio 17.6, Glucose 219 H, Calcium 9.3 12/22/23 22:17: POC Glucose 190 H 12/23/23 02:45: POC Glucose 200 H 12/23/23 04:10: WBC 13.0 H, RBC 3.97 L, Hgb 11.9 L, Hct 35.2 L, MCV 88.7, MCH 30.0, MCHC 33.8, RDW Std Deviation 43.3, RDW Coeff of [place] 13.2, Plt Count 207, MPV 11.4, Sodium 139, Potassium 3.8, Chloride 109 H, Carbon Dioxide 23.0, Anion Gap 7, BUN 13, Creatinine 0.78, Estim Creat Clear Calc 80.33, Est GFR (MDRD) Af Amer 126, Est GFR (MDRD) Non-Af 105, BUN/Creatinine Ratio 16.7, Glucose 180 H, Hemoglobin A1c 7.1 H, Calcium 8.5 12/23/23 06:52: POC Glucose 189 H 12/23/23 10:19: POC Glucose 211 H Radiography Diagnostic Testing: Radiology Impression Chest X-Ray 12/22/23 18:00 IMPRESSION: No radiographic evidence of acute cardiopulmonary disease. Electronically Signed: Andrew Narayanan MD at 19:34 EDT , Hip/Pelvis X-Ray 12/22/23 18:00 IMPRESSION: Findings concerning for nondisplaced left intertrochanteric femur fracture. Electronically Signed: Andrew Narayanan MD at 19:33 EDT , Pelvis CT 12/22/23 18:17 IMPRESSION: Left intratrochanteric femur fracture with mild impaction and comminution at the lesser trochanter. Moderate bilateral hip osteoarthritis. Electronically Signed: Andrew Narayanan MD at 20:38 EDT , Hip X-Ray 12/23/23 07:00 IMPRESSION: undefined Physical Exam Const alert, oriented x3, no apparent distress and average body habitus Constitutional Narrative: Pleasant elderly male, mildly somnolent and fatigued postoperatively, otherwise sitting up comfortably in bed, conversing normally, no acute distress. General Appearance: cooperative and comfortable HEENT normocephalic, head/scalp atraumatic, hearing grossly normal bilaterally and nasal mucous membranes and turbinates normal Eyes PERRL, EOMs intact bilaterally and conjunctivae normal Neck full ROM Chest inspection of chest normal Resp normal respiratory effort, no use of accessory muscles and clear to auscultation bilaterally Resp Narrative: Breathing comfortably on 2 L nasal cannula at rest with good oxygen saturations. Good air movement throughout bilaterally, no wheezing or crackles noted. Cardio regular rate, regular rhythm, no murmurs and peripheral pulses 2+ throughout GI normal to inspection, nondistended, normoactive bowel sounds, soft to palpation, non-tender and non-distended Back/Spine normal ROM Extremity Extremity Narrative: Left hip with brace in place. Skin no rashes or lesions noted Neuro Speech: speech normal Psych mental status grossly normal Assessment & Plan Assessment/Plan (1) Intertrochanteric fracture of left hip: (2) Insulin dependent diabetes mellitus with complications: (3) HTN (hypertension): PLAN: Plan Patient is a 68-year-old male who presented to [facility] ED on 12/22/2023 with left hip pain after a fall at home. 1. Left intertrochanteric hip fracture ? Orthopedic surgery following. S/p left hip ORIF with intramedullary nail fixation with Dr. Guan on 12/22. No intra-op complications noted. PT/OT/case management following. Pain control with scheduled Tylenol, oxycodone as needed and IV Dilaudid as needed. DVT prophylaxis with Lovenox for now, appreciate further orthopedic recs. 2. Type 2 diabetes mellitus ? Home regimen of NPH/regular insulin 70/30 35 units daily. A1c 7.1% on admit. Will treat with Lantus 20 units at night and Humalog 7 units with meals plus sliding scale insulin as needed while inpatient. Adjust as needed. 3. Hypertension ? Home regimen of enalapril 20 mg twice daily. Held LARA inhibitor on day of procedure, okay to restart on 12/23. 4. Mild normocytic anemia ? Hemoglobin 13.0 on admit, down to 11.9 on morning of operation. Suspect 12 is around baseline and hemoglobin will drop some tomorrow morning after the procedure. Monitor daily CBC. Chronic medical conditions: ? Primary CAD prophylaxis: Held aspirin on day of procedure, okay to restart on 12/23. ? Vertigo: Held meclizine as needed on day of procedure, okay to restart on 12/23. ? Hyperlipidemia: Continue home statin. ? BPH with obstructive symptoms: Continue home Flomax. DVT prophylaxis: Lovenox CODE STATUS: Full code, verified Expected disposition: Home with home health care versus SNF, 1 to 2 days Total clinical time spent by myself addressing the patient's medical issues, reviewing all the data, and collaborating with patient's care team: 35 minutes. Charges/Coding Visit Charges Inpatient E&M: 00431 Subs Hosp L2
[2023-12-23] MEDS: Tamsulosin HCl 0.4 MG Capsule PO (11:47)
[2023-12-23] MEDS: HYDROmorphone 0.5 MG/0.5 ML SYRINGE IV (11:55)
[2023-12-23] MEDS: Acetaminophen 500 MG Tablet 1000 MG PO ×2 (14:38→22:15)
[2023-12-23] MEDS: Insulin NPH Human 100 UNITS/ML PEN 10 UNITS SC (16:10)
[2023-12-23 16:16] LABS: Bedside Glucose 228 mg/dL (74-106)
[2023-12-23 16:46] LABS: Bedside Glucose 294 mg/dL (74-106)
[2023-12-23] MEDS: Insulin Lispro 100 UNIT/ML INSULN.PEN 7 UNIT SC (17:16)
[2023-12-23] MEDS: Insulin Glargine-YFGN 100 UNIT/ML Pen 20 UNIT SC (22:13)
[2023-12-23] MEDS: Atorvastatin Calcium 20 MG Tablet PO (22:14)
[2023-12-23 22:37] LABS: Bedside Glucose 210 mg/dL (74-106)
[2023-12-24 01:34] VITALS: PULSE 90; RESP 15; O2SAT 97
[2023-12-24 02:00] VITALS: BP 169/80; PULSE 90; RESP 15; TEMP 36.6; O2SAT 99
[2023-12-24] MEDS: 0.9% Normal Saline (1000mL) 1,000 ML 150 ML IV (03:00)
[2023-12-24 04:57] VITALS: BP 168/64; PULSE 82; RESP 15; TEMP 37; O2SAT 96
[2023-12-24] MEDS: Acetaminophen 500 MG Tablet 1000 MG PO ×2 (06:46→14:24)
[2023-12-24 07:07] LABS: Hematocrit 34.8 % (40-54); Hemoglobin 11.5 g/dL (13.0-16.5); Mean Corpuscular Hgb 30.1 pg (27.0-32.0); Mean Corpuscular Volume 91.1 fL (80-94); Mean Platelet Vol. 12.3 fl (6.2-12.0); Platelet Count 187 K/mm3 (150-450); RBC Distribution Width CV 13.6 % (11.6-14.6); RBC Distribution Width SD 45.9 fl (35.1-43.9); Red Blood Count 3.82 M/mm3 (4.6-6.2); White Blood Count 10.7 K/mm3 (4.4-11.0)
[2023-12-24 07:20] VITALS: O2SAT 94
[2023-12-24 07:24] LABS: Bedside Glucose 89 mg/dL (74-106)
[2023-12-24 07:28] LABS: Anion Gap 4 (5-15); BUN 8 mg/dL (7-18); BUN/Creat Ratio 11.7 RATIO (10-20); Calcium,Total 8.7 mg/dL (8.5-10.1); Chloride 111 mmol/L (98-107); Creatinine, Serum 0.68 mg/dL (0.70-1.30); EST Glomerular Filtration Rate 122 mL/min (>60); Est Glom Filt Rate - Afr Amer 148 mL/min (>60); Estimated Creatinine Clearance 80.33 ml/min; Glucose 83 mg/dL (74-106); Potassium 3.4 mmol/L (3.5-5.1); Sodium Level 141 mmol/L (136-145)
--- NOTE | 2023-12-24 07:50 | PCM.PN.HOSP ---
Reason for Visit Reason for Visit: Diagnoses Type 2 diabetes mellitus with unspecified complications (12/22/23) Essential (primary) hypertension (12/22/23) Displaced intertrochanteric fracture of left femur, initial encounter for closed fracture (12/22/23) Unspecified fall, initial encounter (12/22/23) Subjective Subjective Feeling well. Denies complaints. Objective Data Objective Data Vital Signs: Vital Signs Temp Pulse Resp BP Pulse Ox O2 Del Method O2 Flow Rate 37.0 C 82 15 168/64 H 94 Nasal Cannula 2 12/24/23 04:57 12/24/23 04:57 12/24/23 04:57 12/24/23 04:57 12/24/23 07:20 12/24/23 07:20 12/24/23 07:20 Oxygen Flow Rate (L/min) 2 Oxygen Delivery Method Nasal Cannula Weight: 78.6 kg Body Mass Index (BMI) 27.1 Intake & Output: Intake and Output for Last 24 Hours 12/22/23 12/23/23 12/24/23 23:59 23:59 23:59 Intake Total 5140 / 5140 1000 / 1000 Output Total 1850 / 2700 1050 / 1050 Balance 3290 / 2440 -50 / -50 Lab / Micro Data 12/24/23 05:55 12/24/23 05:55 Labs: Laboratory Results - last 24 hr 12/23/23 04:10: Hemoglobin A1c 7.1 H 12/23/23 10:19: POC Glucose 211 H 12/23/23 11:05: POC Glucose 228 H 12/23/23 16:09: POC Glucose 294 H 12/23/23 22:10: POC Glucose 210 H 12/24/23 05:55: WBC 10.7, RBC 3.82 L, Hgb 11.5 L, Hct 34.8 L, MCV 91.1, MCH 30.1, MCHC 33.0, RDW Std Deviation 45.9 H, RDW Coeff of [place] 13.6, Plt Count 187, MPV 12.3 H, Sodium 141, Potassium 3.4 L, Chloride 111 H, Carbon Dioxide 26.0, Anion Gap 4 L, BUN 8, Creatinine 0.68 L, Estim Creat Clear Calc 80.33, Est GFR (MDRD) Af Amer 148, Est GFR (MDRD) Non-Af 122, BUN/Creatinine Ratio 11.7, Glucose 83, Calcium 8.7 12/24/23 06:43: POC Glucose 89 Radiography Diagnostic Testing: Radiology Impression Hip X-Ray 12/23/23 07:00 IMPRESSION: undefined Physical Exam Const alert and no apparent distress HEENT head/scalp atraumatic Resp normal respiratory effort Assessment & Plan Assessment/Plan (1) Intertrochanteric fracture of left hip: (2) Insulin dependent diabetes mellitus with complications: (3) HTN (hypertension): PLAN: Plan Left intertrochanteric hip fracture S/p left hip ORIF with intramedullary nail fixation by Dr. Guan on 12/22. PT/OT/case management following. Pain control VTE prophylaxis: ASA 81 BID for 30-days WBAT to LLE. DM2 Continue glargine 20 units. Prandial insulin 7 QAC. A1c 7.1% on admit. Chronic conditions: Hypertension?enalapril 20 BID Normocytic anemia: stable. Vertigo: Held meclizine as needed on day of procedure, okay to restart on 12/23. Hyperlipidemia: Continue home statin. BPH with obstructive symptoms: Continue home Flomax. DVT prophylaxis: ASA 81 BID CODE STATUS: Full code Expected disposition: Home with home health care versus SNF, 1 to 2 days
[2023-12-24] MEDS: Tamsulosin HCl 0.4 MG Capsule PO (10:21)
[2023-12-24] MEDS: Lisinopril 20 MG Tablet PO (10:22)
[2023-12-24] MEDS: Aspirin 81 MG TAB.CHEW PO (10:23)
[2023-12-24] MEDS: Senna/Docusate Sodium 1 Tablet 2 TABLET PO (10:26)
[2023-12-24 10:34] VITALS: BP 162/66; PULSE 86; RESP 16; TEMP 36.6; O2SAT 97
[2023-12-24] MEDS: Insulin Lispro 100 UNIT/ML INSULN.PEN 7 UNIT SC (11:29)
[2023-12-24] MEDS: Insulin Lispro 100 UNIT/ML INSULN.PEN SC (11:29)
[2023-12-24 11:48] LABS: Bedside Glucose 181 mg/dL (74-106)
--- NOTE | 2023-12-24 12:00 | CASEMGMT ---
SANIYA KIM Assessment: Face to Face with pt for initial transition planning/care coordination assessment. SANIYA KIM introduced self and role at [facility], pt voices understanding and consents to assessment. Pt is A&O x4 and answers all questions appropriately at this time. Care providers, pharmacy, and demographics verified/updated. Admitting Dx: PCP: Specialists: Preferred Pharmacy: Insurance: Prescription Benefit: yes LNOK: Living Arrangements: Pt lives Transportation: Pt drives self and denies concerns with transportation. DME: HHC/SNF: Pt states no concerns with going home at time of dc. Pt states no further concerns/needs. CM to follow. Advised pt to ask CM if any further question/concerns/needs arise, voices understanding. Pt Goal: Plan: Dodie KOTHARI CM
--- NOTE | 2023-12-24 12:00 | CASEMGMT ---
SANIYA KIM Assessment: Face to Face with pt for initial transition planning/care coordination assessment. SANIYA KIM introduced self and role at [facility], pt voices understanding and consents to assessment. Pt sitting up in chair, sitting at bedside. Pt is A&O x4 and answers all questions appropriately at this time. Care providers, pharmacy, and demographics verified/updated. Admitting Dx: Hip fracture PCP: Farzana Specialists: [facility] urologist, Riky - cannot recall doctor's name. Preferred Pharmacy: [facility] Insurance: Medicare, Medical [facility] Prescription Benefit: yes LNOK: Jessie - , Abiola - sister Living Arrangements: Pt lives with and son in a 1 story with a ramp to enter. Pt states was I with ADLs and IADLs prior to fall and injury. Transportation: Pt drives self, pt able to drive until pt is able to drive again. DME: Shower chair, grab bars, [employer] HHC/SNF: Denies Hx of. Pt states he would like to go to a rehab or SNF upon DC. Patient was provided a list of Rehab Unit and SNF providers including quality and resource use data and consistent with the patient?s preferred geographic region, medical needs, and insurance network were provided from the [employer] Guide. Pt and request to stay at [facility] either on rehab or TCU. Educated on Medicare's 3 mn criteria for SNF benefits. Notified SW. Pt states he is I with BS checks and medication administration for diabetes. Pt states no further concerns/needs. CM to follow. Advised pt to ask CM or SW if any further question/concerns/needs arise, voices understanding. Pt Goal: Acute Rehab or SNF. Plan: RU or SNF Dodie KOTHARI CM
--- NOTE | 2023-12-24 12:42 | PCM.PN.ORT ---
Subjective Subjective Patient sitting at bedside eating lunch. Patient states his pain has been very well-managed. He has minimal pain at this time. Denies any chest pain, shortness of breath, calf pain, nausea vomiting. Denies any calf pain, numbness or tingling of the left leg. No other complaints at this time. Patient would like to be placed in an ECF or therapy center for postop rehab. Objective Data Objective Data Vital Signs: Vital Signs Temp Pulse Resp BP Pulse Ox O2 Del Method O2 Flow Rate 98 F 86 16 162/66 H 97 Room Air 2 12/24/23 10:34 12/24/23 10:34 12/24/23 10:34 12/24/23 10:34 12/24/23 10:34 12/24/23 10:34 12/24/23 07:20 Oxygen Flow Rate (L/min) 2 Oxygen Delivery Method Room Air Weight: 78.6 kg Body Mass Index (BMI) 27.1 Intake & Output: Intake and Output for Last 24 Hours 12/22/23 12/23/23 12/24/23 23:59 23:59 23:59 Intake Total 5140 / 5140 1787.5 / 1787.5 Output Total 1850 / 2700 1050 / 1050 Balance 3290 / 2440 737.5 / 737.5 Lab / Micro Data 12/24/23 05:55 12/24/23 05:55 Labs: Laboratory Results - last 24 hr 12/23/23 11:05: POC Glucose 228 H 12/23/23 16:09: POC Glucose 294 H 12/23/23 22:10: POC Glucose 210 H 12/24/23 05:55: WBC 10.7, RBC 3.82 L, Hgb 11.5 L, Hct 34.8 L, MCV 91.1, MCH 30.1, MCHC 33.0, RDW Std Deviation 45.9 H, RDW Coeff of [place] 13.6, Plt Count 187, MPV 12.3 H, Sodium 141, Potassium 3.4 L, Chloride 111 H, Carbon Dioxide 26.0, Anion Gap 4 L, BUN 8, Creatinine 0.68 L, Estim Creat Clear Calc 80.33, Est GFR (MDRD) Af Amer 148, Est GFR (MDRD) Non-Af 122, BUN/Creatinine Ratio 11.7, Glucose 83, Calcium 8.7 12/24/23 06:43: POC Glucose 89 12/24/23 11:26: POC Glucose 181 H Physical Exam Narrative Exam, I found the patient sitting comfortably in bedside eating lunch. No respiratory distress, speaking in full sentences. Patient has full range of motion the upper extremities without limitations. Patient has full range of motion of the right hip knee and ankle without pain. Exam of the left hip the dressing is clean dry intact. Patient did have minimal flexion while sitting in the chair. Good flexion extension of the knee. No calf tenderness neurovascular is otherwise intact. Const alert and oriented x3 General Appearance: cooperative HEENT normocephalic Eyes PERRL Resp normal respiratory effort Effort and Inspection: able to speak in complete sentences Extremity normal capillary refill Skin no rashes or lesions noted Neuro CN's II-XII intact bilaterally Psych mental status grossly normal and affect normal Assessment & Plan Assessment/Plan (1) Intertrochanteric fracture of left hip: PLAN: 1. Continue pain medications as prescribed 2. Aspirin 81 mg 1 p.o. every 12 hours x 30 days for postop DVT prophylaxis 3. Weight-bear as tolerated with walker 4. Continue physical therapy 5. Ice to left hip, SCDs and ANNA hose bilaterally while sitting or in bed 6. Patient can shower on 12/26/2023 7. Staple removal 01/07/2024 8. Patient can be discharged to [facility] when cleared with medicine 9. Follow-up with Dr. Guan in 2 weeks
--- NOTE | 2023-12-24 14:13 | DS.PCM_ITS ---
Providers Date of Admission: 12/22/23 Primary Care Physician: Dr. 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 Guan on 12/22. * PT/OT/case management following. * Pain control * VTE prophylaxis: ASA 81 BID for 30-days * WBAT to LLE. DM2 * Continue glargine 20 units. Prandial insulin 7 QAC. * A1c 7.1% on admit. Chronic conditions: * Hypertension?enalapril 20 BID * Normocytic anemia: stable. * Vertigo: Held meclizine as needed on day of procedure, okay to restart on 12/23. * Hyperlipidemia: Continue home statin. * BPH with obstructive symptoms: Continue home Flomax. DVT prophylaxis: ASA 81 BID CODE STATUS: Full code Expected disposition: Home with home health care versus SNF, 1 to 2 days Medications at Discharge Home Medications dorzolamide 2 % eye drops See Rx Instructions ophthalmic (eye) BID glaucoma 10/06/15 latanoprost 0.005 % eye drops 1 drp ophthalmic (eye) DAILY glaucoma 10/06/15 simvastatin 40 mg tablet 40 mg PO DAILY cholesterol 10/06/15 tamsulosin 0.4 mg capsule 0.4 mg PO BID prostate 10/06/15 timolol 0.5 % eye drops 1 drp ophthalmic (eye) BID glaucoma 10/06/15 aspirin 81 mg tablet,delayed release (Adult Low Dose Aspirin) 81 mg PO QDAY blood thin 07/03/17 blood sugar diagnostic (ReliOn Prime Test Strips) #20 ea 07/03/17 blood-glucose meter (ReliOn Prime Meter) #1 ea 07/03/17 insulin regular human 100 unit/mL injection solution (Novolin R Regular U-100 Insulin) 12 unit subcut TIDCM diabetes 07/03/17 insulin syringe-needle U-100 0.5 mL 31 gauge x 5/16 (BD Insulin Syringe Ult- Fine II) #10 ea 07/03/17 multivitamin 1 cap PO QAM supplement 07/03/17 vitamin B complex 1 cap PO BID supplement 07/03/17 enalapril maleate 20 mg tablet 20 mg PO BID hypertension 07/24/17 hydrocodone-homatropine 5 mg-1.5 mg/5 mL (5 mL) oral syrup 5 ml PO Q6H PRN PRN Cough ##60 07/24/17 Hospital [facility] Operations - (left hip ORIF, intramedullary nail fixation) Weight / BMI Weight Weight: 78.6 kg Body Mass Index (BMI) 27.1 ABG / Lab / Microbiology Data 12/24/23 05:55 12/24/23 05:55 Laboratory: Laboratory Results - last 24 hr 12/23/23 11:05: POC Glucose 228 H 12/23/23 16:09: POC Glucose 294 H 12/23/23 22:10: POC Glucose 210 H 12/24/23 05:55: WBC 10.7, RBC 3.82 L, Hgb 11.5 L, Hct 34.8 L, MCV 91.1, MCH 30.1, MCHC 33.0, RDW Std Deviation 45.9 H, RDW Coeff of [place] 13.6, Plt Count 187, MPV 12.3 H, Sodium 141, Potassium 3.4 L, Chloride 111 H, Carbon Dioxide 26.0, A nion Gap 4 L, BUN 8, Creatinine 0.68 L, Estim Creat Clear Calc 80.33, Est GFR (MDRD) Af Amer 148, Est GFR (MDRD) Non-Af 122, BUN/Creatinine Ratio 11.7, Glucose 83, Calcium 8.7 12/24/23 06:43: POC Glucose 89 12/24/23 11:26: POC Glucose 181 H Meaningful Use Info Meaningful Use Meaningful Use Diagnoses (Choose all that apply): None applicable Ischemic Stroke Statin Dosing Therapy Reference: STATIN DOSE THERAPY REFERENCE: * Patients > 75 years receive moderate or high dose statin therapy. * Patients 75 years or YOUNGER should receive HIGH intensity statin dose unless contraindicated. You will be required to document reason for non-treatment if statin daily dose does not meet guidelines. HIGH DOSE STATIN THERAPY DAILY Atorvastatin > than or = to 40 mg Rosuvastatin > than or = to 20 mg Amlodipine + Atorvastatin > than or = to 2.5/40 mg Ezetimibe + Simvastatin 10/80 mg Simvastatin 80mg Discharge Plan Admission Admit Date/Time: 12/22/23 18:30 Primary Reason for Your Visit: Left hip fracture. Attending Provider: Andrew Francisco Primary Care Provider: Renetta Yanes Consulting Providers: Jarad Burch; MIGUELITO MASON; Pan Carranza Discharge Orders/Prescriptions Prescriptions: No Action (DME) insulin syringe-needle U-100 [BD Insulin Syringe Ult-Fine II] 0.5 mL 31 gauge x 5/16 syringe See Dose Instructions .ROUTE .MEDSUPPLY Qty: 10 Rx Instructions: use as directed with insulin injections tid aspirin [Adult Low Dose Aspirin] 81 mg tablet,delayed release (DR/EC) 81 mg PO QDAY vitamin B complex capsule 1 cap PO BID multivitamin capsule 1 cap PO QAM Novolin R Regular U100 Insulin 100 unit/mL solution 12 unit SC TIDCM (DME) blood-glucose meter [ReliOn Prime Meter] misc See Dose Instructions .ROUTE .MEDSUPPLY Qty: 1 Rx Instructions: As directed (DME) blood sugar diagnostic [ReliOn Prime Test Strips] strip See Dose Instructions .ROUTE .MEDSUPPLY Qty: 20 Rx Instructions: As directed latanoprost 1 DROP bottle 1 drp ophthalmic (eye) DAILY Patient Comments: 1 drop each eye simvastatin 40 MG tablet 40 mg PO DAILY tamsulosin 0.4 MG capsule 0.4 mg PO BID timolol 5 ML drops 1 drp ophthalmic (eye) BID Patient Comments: 1 drop each eye dorzolamide 1 DROP bottle See Rx Instructions ophthalmic (eye) BID Patient Comments: 1 drop each eye Rx Instructions: into the eye(s) twice a day; enalapril maleate 20 MG tablet 20 mg PO BID Patient Comments: hydrocodone-homatropine 5 ML syrup 5 ml PO Q6H PRN PRN (Reason: Cough) Qty: 60 0RF Referrals / Follow Up: Renetta Yanes MD [Primary Care Provider] -
--- NOTE | 2023-12-24 14:13 | PCM.DC.SUM ---
Providers Date of Admission: 12/22/23 Primary Care Physician: Dr. 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 Guan on 12/22. PT/OT/case management following. Pain control VTE prophylaxis: ASA 81 BID for 30-days WBAT to LLE. DM2 Continue glargine 20 units. Prandial insulin 7 QAC. A1c 7.1% on admit. Chronic conditions: Hypertension?enalapril 20 BID Normocytic anemia: stable. Vertigo: Held meclizine as needed on day of procedure, okay to restart on 12/23. Hyperlipidemia: Continue home statin. BPH with obstructive symptoms: Continue home Flomax. DVT prophylaxis: ASA 81 BID CODE STATUS: Full code Expected disposition: Home with home health care versus SNF, 1 to 2 days Medications at Discharge Home Medications dorzolamide 2 % eye drops See Rx Instructions ophthalmic (eye) BID glaucoma 10/06/15 latanoprost 0.005 % eye drops 1 drp ophthalmic (eye) DAILY glaucoma 10/06/15 simvastatin 40 mg tablet 40 mg PO DAILY cholesterol 10/06/15 tamsulosin 0.4 mg capsule 0.4 mg PO BID prostate 10/06/15 timolol 0.5 % eye drops 1 drp ophthalmic (eye) BID glaucoma 10/06/15 aspirin 81 mg tablet,delayed release (Adult Low Dose Aspirin) 81 mg PO QDAY blood thin 07/03/17 blood sugar diagnostic (ReliOn Prime Test Strips) #20 ea 07/03/17 blood-glucose meter (ReliOn Prime Meter) #1 ea 07/03/17 insulin syringe-needle U-100 0.5 mL 31 gauge x 12/05 (BD Insulin Syringe Ult-Fine II) #10 ea 07/03/17 vitamin B complex 1 cap PO BID supplement 07/03/17 enalapril maleate 20 mg tablet 20 mg PO BID hypertension 07/24/17 acetaminophen 500 mg tablet 1,000 mg (2 x 500 mg) PO Q8 #0 tabs 12/24/23 aspirin 81 mg chewable tablet 81 mg PO BIDCM 30 days #0 tabs 12/24/23 insulin glargine-yfgn 100 unit/mL (3 mL) subcutaneous pen 20 unit (0.2 mL) subcut QHS #0 mL 12/24/23 insulin lispro 100 unit/mL subcutaneous pen (Humalog KwikPen (U-100) Insulin) 7 unit (0.07 mL) subcut TIDAC #0 mL 12/24/23 insulin lispro 100 unit/mL subcutaneous pen (Humalog KwikPen (U-100) Insulin) See Protocol subcut ACHS #0 mL 12/24/23 oxycodone 5 mg tablet 5 mg PO Q4H PRN PRN Pain Score 4-10 #0 tabs 12/24/23 Hospital Course Operations - (left hip ORIF, intramedullary nail fixation) Summary of Care Provided Minutes Spent on Discharge: 35 Weight / BMI Weight Weight: 78.6 kg Body Mass Index (BMI) 27.1 ABG / Lab / Microbiology Data 12/24/23 05:55 12/24/23 05:55 Laboratory: Laboratory Results - last 24 hr 12/23/23 11:05: POC Glucose 228 H 12/23/23 16:09: POC Glucose 294 H 12/23/23 22:10: POC Glucose 210 H 12/24/23 05:55: WBC 10.7, RBC 3.82 L, Hgb 11.5 L, Hct 34.8 L, MCV 91.1, MCH 30.1, MCHC 33.0, RDW Std Deviation 45.9 H, RDW Coeff of [place] 13.6, Plt Count 187, MPV 12.3 H, Sodium 141, Potassium 3.4 L, Chloride 111 H, Carbon Dioxide 26.0, Anion Gap 4 L, BUN 8, Creatinine 0.68 L, Estim Creat Clear Calc 80.33, Est GFR (MDRD) Af Amer 148, Est GFR (MDRD) Non-Af 122, BUN/Creatinine Ratio 11.7, Glucose 83, Calcium 8.7 12/24/23 06:43: POC Glucose 89 12/24/23 11:26: POC Glucose 181 H Meaningful Use Info Meaningful Use Meaningful Use Diagnoses (Choose all that apply): None applicable Ischemic Stroke Statin Dosing Therapy Reference: STATIN DOSE THERAPY REFERENCE: * Patients > 75 years receive moderate or high dose statin therapy. * Patients 75 years or YOUNGER should receive HIGH intensity statin dose unless contraindicated. You will be required to document reason for non-treatment if statin daily dose does not meet guidelines. HIGH DOSE STATIN THERAPY DAILY Atorvastatin > than or = to 40 mg Rosuvastatin > than or = to 20 mg Amlodipine + Atorvastatin > than or = to 2.5/40 mg Ezetimibe + Simvastatin 10/80 mg Simvastatin 80mg Discharge Plan Admission Admit Date/Time: 12/22/23 18:30 Primary Reason for Your Visit: Left hip fracture. Attending Provider: Andrew Francisco Primary Care Provider: Renetta Yanes Consulting Providers: Jarad Burch; MIGUELITO MASON; Pan Carranza Instructions Additional Instructions / Restrictions: Per orthopaedics: Weight-bear as tolerated with walker Ice to left hip, SCDs and ANNA hose bilaterally while sitting or in bed Patient can shower on 12/26/2023 Staple removal 01/07/2024 Follow-up with Dr. Guan in 2 weeks Discharge Orders/Prescriptions Prescriptions: New acetaminophen 500 mg Tablet 1,000 mg PO Q8 Qty: 0 0RF aspirin 81 mg Tablet,Chewable 81 mg PO BIDCM 30 Days Qty: 0 0RF insulin glargine-yfgn 100 unit/mL (3 mL) Insulin Pen 20 unit subcut QHS Qty: 0 0RF insulin lispro [Humalog KwikPen Insulin] 100 unit/mL Insulin Pen See Protocol subcut ACHS Qty: 0 0RF Protocol: 4. Sliding Scale Insulin High-Med Dosing Condition: 150-199 mg/dl = 2 units Condition: 200-259 mg/dl = 4 units Condition: 260-324 mg/dl = 6 units Condition: 325-374 mg/dl = 8 units Condition: 375-409 mg/dl = 10 units Condition: 410-449 mg/dl = 11 units Condition: Greater than 449 call physician Protocol Text: - Use for Total Daily Dose of Insulin 56-80 units - Patient who are insulin resistant or septic HIGH MEDIUM DOSING ALGORITHM insulin lispro [Humalog KwikPen Insulin] 100 unit/mL Insulin Pen 7 unit subcut TIDAC Qty: 0 0RF oxycodone 5 mg Tablet 5 mg PO Q4H PRN PRN (Reason: Pain Score 4-10) Qty: 0 0RF Continued (DME) insulin syringe-needle U-100 [BD Insulin Syringe Ult-Fine II] 0.5 mL 31 gauge x 5/16 syringe See Dose Instructions .ROUTE .MEDSUPPLY Qty: 10 Rx Instructions: use as directed with insulin injections tid vitamin B complex capsule 1 cap PO BID (DME) blood-glucose meter [ReliOn Prime Meter] misc See Dose Instructions .ROUTE .MEDSUPPLY Qty: 1 Rx Instructions: As directed (DME) blood sugar diagnostic [ReliOn Prime Test Strips] strip See Dose Instructions .ROUTE .MEDSUPPLY Qty: 20 Rx Instructions: As directed latanoprost 1 DROP bottle 1 drp ophthalmic (eye) DAILY Patient Comments: 1 drop each eye simvastatin 40 MG tablet 40 mg PO DAILY tamsulosin 0.4 MG capsule 0.4 mg PO BID timolol 5 ML drops 1 drp ophthalmic (eye) BID Patient Comments: 1 drop each eye dorzolamide 1 DROP bottle See Rx Instructions ophthalmic (eye) BID Patient Comments: 1 drop each eye Rx Instructions: into the eye(s) twice a day; enalapril maleate 20 MG tablet 20 mg PO BID Patient Comments: Held aspirin [Adult Low Dose Aspirin] 81 mg tablet,delayed release (DR/EC) 81 mg PO QDAY Hold Instructions: Resume on 01/23/24. Discontinued multivitamin capsule 1 cap PO QAM Novolin R Regular U100 Insulin 100 unit/mL solution 12 unit SC TIDCM hydrocodone-homatropine 5 ML syrup 5 ml PO Q6H PRN PRN (Reason: Cough) Qty: 60 0RF Referrals / Follow Up: Renetta Yanes MD [Primary Care Provider] - Within 2 Weeks Douglas Guan MD [Med Staff - Active Staff] - Within 2 Weeks Disposition Disposition (needs filled in before D/C Order can be placed): Inpatient Rehab Unit/Facility Charges/Coding Visit Charges Inpatient E&M: 30960 Disch Hosp >30min
--- NOTE | 2023-12-24 14:18 | CASEMGMT ---
Addendum entered and electronically signed by Giselle Mcdowell 12/24/23 15:10: Faxed discharge instructions/med list, embedded within the discharge summary, to [facility] inpatient rehab unit. See original note for further details of discharge plan. -Ilir Original Note: Social Work - Discharge Planning Collaboration with SANIYA Medina regarding discharge plan. Patient and family were given list of choices for RU and SNF, with preference to be at [facility] or TCU. Referral made to Evelyne at [facility] and TCU, indicating patient's preference for RU. Spoke with Dr. Francisco who confirms patient would be ready for discharge today if can obtain next level placement. Updated Evelyne. Received notice from Evelyne who reports patient can be admitted to [facility] today. Updated Dr. Francisco who reports plan to discharge patient today. Met with patient, patient's , and patient's sister. Updated to discharge planning. Patient and both agree with plan for [facility]. Patient reports goal is to be able to return home at discharge. Updated that discharge likely to occur today. Updated patient's nurse Annabelle, and of need for nurse to nurse report. Plan: [facility] inpatient rehab level of care. -ABIGAIL Stanley
--- NOTE | 2023-12-24 14:35 | PHA.DC_ITS ---
Pharmacy [place] Med Reconciliation Pharmacy Service has performed discharge medication reconciliation for this patient. Hold daily aspirin until BID is complete. The patient's discharge medication list was reviewed for discrepancies and discrepancies were resolved. Medications at Discharge Home Medications dorzolamide 2 % eye drops See Rx Instructions ophthalmic (eye) BID glaucoma 10/06/15 latanoprost 0.005 % eye drops 1 drp ophthalmic (eye) DAILY glaucoma 10/06/15 simvastatin 40 mg tablet 40 mg PO DAILY cholesterol 10/06/15 tamsulosin 0.4 mg capsule 0.4 mg PO BID prostate 10/06/15 timolol 0.5 % eye drops 1 drp ophthalmic (eye) BID glaucoma 10/06/15 aspirin 81 mg tablet,delayed release (Adult Low Dose Aspirin) 81 mg PO QDAY blood thin 07/03/17 blood sugar diagnostic (ReliOn Prime Test Strips) #20 ea 07/03/17 blood-glucose meter (ReliOn Prime Meter) #1 ea 07/03/17 insulin syringe-needle U-100 0.5 mL 31 gauge x 12/05 (BD Insulin Syringe Ult- Fine II) #10 ea 07/03/17 vitamin B complex 1 cap PO BID supplement 07/03/17 enalapril maleate 20 mg tablet 20 mg PO BID hypertension 07/24/17 acetaminophen 500 mg tablet 1,000 mg (2 x 500 mg) PO Q8 #0 tabs 12/24/23 aspirin 81 mg chewable tablet 81 mg PO BIDCM 30 days #0 tabs 12/24/23 insulin glargine-yfgn 100 unit/mL (3 mL) subcutaneous pen 20 unit (0.2 mL) subcut QHS #0 mL 12/24/23 insulin lispro 100 unit/mL subcutaneous pen (Humalog KwikPen (U-100) Insulin) 7 unit (0.07 mL) subcut TIDAC #0 mL 12/24/23 insulin lispro 100 unit/mL subcutaneous pen (Humalog KwikPen (U-100) Insulin) See Protocol subcut ACHS #0 mL 12/24/23 oxycodone 5 mg tablet 5 mg PO Q4H PRN PRN Pain Score 4-10 #0 tabs 12/24/23
[2023-12-24 14:43] VITALS: BP 155/82; PULSE 98; RESP 16; TEMP 36.9; O2SAT 98
== END 2023-12-24 15:25 | DRG 481 ==
LOC: ED 18:17 → MS3 18:44
PROVIDERS: Hospitalist; Orthopaedic Surgery; Admitting Provider Internal Medicine; Emergency Provider Emergency Medicine; PCP Internal Medicine
PROC: 0QS706Z Reposition Left Upper Femur with Intramedullary Internal Fixation Device, Open Approach (ICD-10-PCS; CPT 27245; principal; 2023-12-23 08:00)
DX: S72.142A Displaced intertrochanteric fracture of left femur, initial encounter for closed fracture (principal); N13.8 Other obstructive and reflux uropathy; E11.319 Type 2 diabetes mellitus with unspecified diabetic retinopathy without macular edema; I10 Essential (primary) hypertension; J45.909 Unspecified asthma, uncomplicated; E78.5 Hyperlipidemia, unspecified; K21.9 Gastro-esophageal reflux disease without esophagitis; W18.09XA Striking against other object with subsequent fall, initial encounter; I25.10 Atherosclerotic heart disease of native coronary artery without angina pectoris; Y92.59 Other trade areas as the place of occurrence of the external cause; N40.1 Benign prostatic hyperplasia with lower urinary tract symptoms; H40.9 Unspecified glaucoma; Z79.82 Long term (current) use of aspirin; Z79.899 Other long term (current) drug therapy
CPT/HCPCS: 36415; 71045; 72192; 73502; 76000; 80048; 82962; 83036; 85025; 85027; 85610; 85730; 93005; 94668; 97162; 97166; 99284; C1776; J7030; J7120; A4216; J2405

== ENCOUNTER 2023-12-24 15:47 | Inpatient (IN) | payer MEDICARE, OTHER, SELFPAY ==
[2023-12-24 16:36] VITALS: BP 177/80; PULSE 95; RESP 17; TEMP 36.7; O2SAT 93
[2023-12-24 16:41] VITALS: BMI 28.0
--- NOTE | 2023-12-24 17:43 | HP.PCM_ITS ---
HPI - General General Date of Admission: 12/24/23 Date of Service: 12/24/23 Chief Complaint: Hip fracture HPI Narrative TAHIR RICHARDS, is a 68 M with a PMH of diabetes mellitus type 2, nephrolithiasis, GERD, asthma, dyslipidemia, glaucoma and BPH who presented to the emergency department at [facility] on 12/22/2023 after a mechanical fall at home complaining of left hip pain. Plain x-ray of the hip showed findings concerning for nondisplaced left intertrochanteric femur fracture. Dr. Douglas Guan was consulted and requested a CT scan for surgical planning. CT verified a left intertrochanteric femur fracture with mild impaction and comminution of the lesser trochanter. There was moderate bilateral hip osteoarthritis. He was admitted to the hospitalist service with consult to Dr. Guan. On 12/23/2023 he underwent left hip open reduction internal fixation with an intramedullary nail. He had no significant post op complications and he was transferred to the acute inpt rehab units at [facility] on 12/24/23 for 3 hours of therapy daily to restore function/independence at or near his level prior to the fall/hip FX. Tahir tells me that he is sleeping well. He denies lightheadedness, chest pain, shortness of breath, cough, palpitations, nausea/vomiting/abdominal pain, dysuria and calf tenderness. He tells me that when he is lying in bed his pain is a 1-2. When he is bearing weight the pain increases and he does not feel like it is being well controlled. He had 2 oxycodone 5 mg yesterday and none today. He is agreeable to scheduling the Oxycodone for a few days and then transitioning to PRN. This will facilitate better progress with therapy. Drinks Mountain Dew 3 or more cans a day and has urinary frequency and urgency during the day. Gets up to urinate only at most 1 time a night and often has no need to urinate at night. will often have to urinate again 10 minutes after he just urinated during the day. [facility] Medical History (Updated 12/25/23 @ 12:[address] Jessie Medina, DO) Nephrolithiasis Diabetic retinopathy BPH (benign prostatic hyperplasia) Glaucoma Diabetes type 2, controlled Bilateral cataracts GERD (gastroesophageal reflux disease) Asthma Home Medications ?Medication ?Instructions ?Recorded ?Last Taken ?Type dorzolamide 2 % eye drops See Rx Instructions ophthalmic 10/06/15 Unknown History (eye) BID glaucoma latanoprost 0.005 % eye drops 1 drp ophthalmic (eye) DAILY 10/06/15 Unknown History glaucoma simvastatin 40 mg tablet 40 mg PO DAILY cholesterol 10/06/15 12/23/23 History tamsulosin 0.4 mg capsule 0.4 mg PO BID prostate 10/06/15 12/24/23 History timolol 0.5 % eye drops 1 drp ophthalmic (eye) BID glaucoma 10/06/15 Unknown History aspirin 81 mg tablet,delayed 81 mg PO QDAY blood thin 07/03/17 Unknown History release (Adult Low Dose Aspirin) vitamin B complex 1 cap PO BID supplement 07/03/17 Unknown History enalapril maleate 20 mg tablet 20 mg PO BID hypertension 07/24/17 12/24/23 History acetaminophen 500 mg tablet 1,000 mg (2 x 500 mg) PO Q8 pain 12/24/23 12/24/23 Rx #0 tabs aspirin 81 mg chewable tablet 81 mg PO BIDCM heart 30 days #0 12/24/23 12/24/23 Rx tabs insulin glargine-yfgn 100 unit/mL 20 unit (0.2 mL) subcut QHS DM #0 12/24/23 12/23/23 Rx (3 mL) subcutaneous pen mL insulin lispro 100 unit/mL 7 unit (0.07 mL) subcut TIDAC DM 12/24/23 12/24/23 Rx subcutaneous pen (Humalog KwikPen #0 mL (U-100) Insulin) oxycodone 5 mg tablet 5 mg PO Q4H PRN PRN Pain Score 12/24/23 Unknown Rx 4-10 #0 tabs Allergy/AdvReac Type Severity Reaction Status Date / Time No Known Allergies Allergy Verified 12/22/23 16:58 Family History Father Asthma Kidney disease Cancer Brother Heart disease Asthma Sister Heart disease Surgical History History of open reduction and internal fixation (ORIF) procedure H/O skin graft H/O eye surgery Social History household members: spouse Smoking Status: Never smoker second hand exposure: No alcohol intake: never substance use type: does not use caffeine: No ROS Constitutional Constitutional: Reports weakness; Denies anorexia, change in weight, chills, fatigue, fever(s) or night sweats Eyes Eyes: Denies change in vision, discharge from eye(s), double vision, eye pain or loss of vision ENT HEENT: Denies abnormal hearing, dysphagia, headache(s), hearing loss, nasal congestion or sore throat Cardiovascular Cardiovascular: Denies chest pain, dyspnea on exertion, edema, lightheadedness, orthopnea, palpitations, paroxysmal nocturnal dyspnea or syncope Respiratory/Chest Respiratory/Chest: Denies cough, dyspnea, shortness of breath at rest, shortness of breath with exertion or wheezing Gastrointestinal Gastrointestinal: Denies abdominal pain, constipation, diarrhea, dyspepsia, hematemesis, hematochezia, nausea or vomiting Genitourinary Genitourinary: Reports urinary frequency, urinary hesitancy and urinary urgency; Denies dysuria, hematuria or urinary incontinence Musculoskeletal Musculoskeletal: Reports joint stiffness; Denies back pain, joint pain, joint swelling or neck pain Integumentary Integumentary: Denies jaundice, non-healing lesions or rash Neurologic Neurologic: Denies confusion, disequilibrium, dizziness, focal weakness, headache(s), paresthesias, seizures or tremor(s) Psychiatric Psychiatric: Denies anxiety, depression, homicidal ideation or suicidal ideation Endocrine Endocrinology: Denies change in body appearance, polydipsia or polyuria Hematologic/Lymphatic Hematologic/Lymphatic: Denies easy bleeding, easy bruising or lymphadenopathy Allergic/Immunologic Allergic/Immunologic: Reports asthma; Denies rhinitis or eczemia Vital Signs Vital Signs Vital Signs: 12/24/23 16:36 Temperature 98.0 F Temperature Source Temporal Pulse Rate 95 Respiratory Rate 17 Blood Pressure 177/80 H Blood Pressure Mean 112 Blood Pressure Source Monitor Blood Pressure Position Semi-Fowlers Blood Pressure Location Right Arm Pulse Ox 93 Oxygen Delivery Method Nasal Cannula Weight Weight: 178 lb 12.718 oz Body Mass Index (BMI) 28.0 Physical Exam Const alert, oriented x3 and no apparent distress Constitutional Narrative: Sitting in the recliner at the bedside. Pleasant, cooperative, makes good eye contact. General Appearance: well kempt HEENT head/scalp atraumatic HEENT Narrative: Mucous membranes are a little dry. Hearing is grossly normal. Eyes EOMs intact bilaterally, conjunctivae normal and no scleral icterus Eyes Narrative: No discharge from the eyes and no mattering of the eyelashes. General Eye: normal appearance of both eyes Neck supple, no JVD, No nodes and no carotid bruits General: trachea midline Chest Chest: symmetrical chest wall rise Resp normal respiratory effort, normal air movement and clear to auscultation bilaterally Effort and Inspection: able to speak in complete sentences Cardio regular rate, regular rhythm, S1 normal heart sound, S2 normal heart sound, no murmurs, no rub and no gallops Cardio Narrative: No ectopy GI normal to inspection, nondistended, normoactive bowel sounds, soft to palpation and non-tender GI Narrative: No guarding with palpation Extremity no calf tenderness and no pedal edema Extremity Narrative: Radial and popliteal pulses are +2 bilaterally Skin no jaundice General Skin Exam: no breakdown Rashes: no rashes Wound Narrative: Incisions are still covered with silver impregnated dressings-will examine when the dressings are removed. There is no erythema extending outside the bandage. Neuro oriented x3, CN's II-XII intact bilaterally and moves all extremities Psych mental status grossly normal, thought process normal, cooperative and affect normal Appearance: grossly normal Attitude: calm Activity / Motor Behavior: appropriate eye contact Speech: normal speech Mood & Affect: euthymic mood Results Lab / Micro Data 12/25/23 05:07 12/25/23 05:07 Assessment & Plan Assessment/Plan (1) Debility: (2) Injury due to fall: QUALIFIERS: Encounter type: subsequent encounter Qualified Code(s): W19.XXXD - Unspecified fall, subsequent encounter (3) Intertrochanteric fracture of left hip: QUALIFIERS: Encounter type: subsequent encounter Fracture type: c losed Fracture alignment: nondisplaced (4) History of open reduction and internal fixation (ORIF) procedure: (5) Acute blood loss anemia: (6) Hypophosphatemia: (7) Hypokalemia: (8) Diabetes type 2, controlled: QUALIFIERS: Diabetes mellitus assisted insulin use: with terminal gauger use Diabetes mellitus complication status: with ophthalmic complications Diabetes mellitus complication detail: with diabetic retinopathy Diabetic retinopathy severity: with unspecified retinopathy severity Laterality: b ilateral (9) Urine retention: (10) HTN (hypertension): QUALIFIERS: Hypertension type: primary hypertension Qualified Code(s): I10 - Essential (primary) hypertension (11) BPH (benign prostatic hyperplasia): QUALIFIERS: Lower urinary tract symptom presence: symptoms present Lower urinary tract symptom detail: incomplete bladder emptying Qualified Code(s): N40.1 - Benign prostatic hyperplasia with lower urinary tract symptoms; R39.14 - Feeling of incomplete bladder emptying PLAN: Plan PLAN PT for gait stability OT for ADL's Analgesics as needed Bowel protocol Fall precautions Assess for Anxiety/Depression GI prophylaxis -not indicated at this time DVT prophylaxis with heparin 5000 units SQ every 12 hours Follow up with Dr. Farzana leigh and Dr. Douglas Guan following DC from IP Rehab AM lab including CMP, CBC, Mag and Phos -ordered for a.m. Schedule oxycodone 5 mg at 7 AM, 1 PM and 8 PM for better pain control. change diet to carb consistent, calorie controlled, cardiac Continue SSI. BS's are not adequately controlled at presentation to rehab....may be due to being on a regular diet and the stress from pain and surgery. BP goal is less than 130/80........may need to add additional antihypertensive. Charges/Coding Visit Charges Inpatient E&M: 29976 Init Hosp L2
[2023-12-24 17:52] LABS: Bedside Glucose 217 mg/dL (74-106)
[2023-12-24] MEDS: Tamsulosin HCl 0.4 MG Capsule PO (18:05)
[2023-12-24] MEDS: Vitamin B Comp W-C Capsule 1 CAP PO (18:05)
[2023-12-24] MEDS: Aspirin 81 MG TAB.CHEW PO (18:05)
[2023-12-24 21:27] VITALS: O2SAT 94
[2023-12-24] MEDS: Polyethylene Glycol 3350 17 GM PACKET PO (21:33)
[2023-12-24] MEDS: oxyCODONE 5 MG Tablet PO (21:33)
[2023-12-24] MEDS: Lisinopril 20 MG Tablet PO (21:34)
[2023-12-24] MEDS: Atorvastatin Calcium 20 MG Tablet PO (21:34)
[2023-12-24] MEDS: Acetaminophen 500 MG Tablet 1000 MG PO (21:34)
[2023-12-24] MEDS: Dorzolamide 2% 10ml Bottle OPHTHALMIC (21:35)
[2023-12-24] MEDS: Timolol 0.5% 5ML OPTH.BTL OPHTHALMIC (21:36)
[2023-12-24] MEDS: Heparin Injection (Vial) 5,000 UNIT/ML VIAL 5000 UNIT SC (21:37)
[2023-12-24] MEDS: Insulin Lispro 100 UNIT/ML INSULN.PEN SC (21:39)
[2023-12-24] MEDS: Insulin Glargine-YFGN 100 UNIT/ML Pen 20 UNIT SC (21:40)
[2023-12-24 22:00] VITALS: BP 160/73; PULSE 95; RESP 16; TEMP 36.8; O2SAT 98
[2023-12-24 22:29] LABS: Bedside Glucose 245 mg/dL (74-106)
[2023-12-25 05:44] LABS: Absolute Lymphocyte Count 1.45 X10^3/uL (0.83-4.51); Absolute Neutrophil Count 6.4 X10^3/uL (2.0-7.7); Basophil# 0.09 X10^3/uL; Basophil% 0.9 % (0-1); Eosinophil# 0.78 X10^3/uL; Eosinophils% 8.1 % (0-5); Hematocrit 31.4 % (40-54); Hemoglobin 10.7 g/dL (13.0-16.5); Lymphocyte # 1.45 X10^3/ul (0.83-4.51); Mean Corp Hgb Conc 34.1 g/dL (32-36); Mean Corpuscular Hgb 30.4 pg (27.0-32.0); Mean Corpuscular Volume 89.2 fL (80-94); Mean Platelet Vol. 12.4 fl (6.2-12.0); Monocyte# 0.89 X10^3/uL; Monocyte% 9.2 % (0-10); NRBC Flagged by Analyzer 0 % (0-5); Neutrophil # 6.44 X10^3/uL (2.7-7.7); Neutrophil % 66.5 % (47-70); Platelet Count 169 K/mm3 (150-450); RBC Distribution Width CV 13.3 % (11.6-14.6); RBC Distribution Width SD 43.5 fl (35.1-43.9); Red Blood Count 3.52 M/mm3 (4.6-6.2); White Blood Count 9.7 K/mm3 (4.4-11.0)
--- NOTE | 2023-12-25 05:56 | NURSING ---
Pt dropped urinal on floor by accident for the second time this hs. Staff cleaned up floor and asked pt to call staff for help with urinal.
[2023-12-25] MEDS: Dorzolamide 2% 10ml Bottle OPHTHALMIC ×2 (06:10→21:16)
[2023-12-25] MEDS: Acetaminophen 500 MG Tablet 1000 MG PO ×3 (06:10→21:17)
[2023-12-25] MEDS: Timolol 0.5% 5ML OPTH.BTL OPHTHALMIC ×2 (06:10→21:16)
[2023-12-25] MEDS: Latanoprost 0.005% 1 Bottle OPHTHALMIC (06:11)
[2023-12-25 06:12] LABS: ALB/GLOB Ratio 0.8 RATIO (0.9-2.4); AST(SGOT) 25 U/L (15-37); Alanine Aminotransfer ALT/SGPT 19 U/L (16-61); Albumin, Serum 2.6 g/dL (3.2-5.0); Alkaline Phosphatase 116 U/L (45-117); Anion Gap 5 (5-15); BUN 6 mg/dL (7-18); BUN/Creat Ratio 9.6 RATIO (10-20); Calcium,Total 8.7 mg/dL (8.5-10.1); Chloride 108 mmol/L (98-107); Creatinine, Serum 0.62 mg/dL (0.70-1.30); EST Glomerular Filtration Rate 135 mL/min (>60); Est Glom Filt Rate - Afr Amer 164 mL/min (>60); Estimated Creatinine Clearance 87.62 ml/min; Globulin 3.2 g/dL (2.2-4.2); Glucose 195 mg/dL (74-106); Magnesium 1.9 mg/dL (1.6-2.6); Phosphorus 1.4 mg/dL (2.5-4.9); Potassium 3.4 mmol/L (3.5-5.1); Protein, Total 5.8 g/dL (6.4-8.2); Sodium Level 139 mmol/L (136-145)
[2023-12-25 06:57] LABS: Bedside Glucose 205 mg/dL (74-106)
[2023-12-25] MEDS: Lisinopril 20 MG Tablet PO ×2 (07:38→21:17)
[2023-12-25] MEDS: oxyCODONE 5 MG Tablet PO (07:38)
[2023-12-25] MEDS: Senna/Docusate Sodium 1 Tablet 2 TABLET PO (07:38)
[2023-12-25] MEDS: Aspirin 81 MG TAB.CHEW PO (07:39)
[2023-12-25] MEDS: Heparin Injection (Vial) 5,000 UNIT/ML VIAL 5000 UNIT SC ×2 (07:39→21:18)
[2023-12-25] MEDS: Tamsulosin HCl 0.4 MG Capsule PO ×2 (07:39→16:59)
[2023-12-25] MEDS: Vitamin B Comp W-C Capsule 1 CAP PO ×2 (07:39→17:00)
[2023-12-25] MEDS: Insulin Lispro 100 UNIT/ML INSULN.PEN 7 UNIT SC (07:39)
[2023-12-25] MEDS: Insulin Lispro 100 UNIT/ML INSULN.PEN SC ×3 (07:40→17:04)
[2023-12-25 07:52] VITALS: BP 178/84; PULSE 89; RESP 18; TEMP 36.5; O2SAT 94
--- NOTE | 2023-12-25 11:24 | PCM.RU.PYE ---
Admission Information Primary Diagnosis:: Left hip fracture Status Changes from Prescreening?: No changes Identified Actual Problem List:: Falls, Pain, ALteration in Cmfrt, Alteration in Sleep, Mobility Impaired, Self Care Deficit, Diabetes, Hyperglycemia, BP, Hypertension and Alteration-Leisure Activ. Potential Problem List:: DVT, Bleeding, Infection, UTI, Aspiration, Falls, Skin Integrity and Depression Risk of Complications DVT: ANNA Akil and - (Aspirin 81 mg p.o. twice daily per orthopedics) Bleeding: Monitor Lab Values, Nursing to Teach Precautions for anti-coagulation therapy., Wound, if applicable, to be assessed every shift. and Stroke patients assessed for lethargy or change in status. Infection: Clinical Staff to Monitor for S/S of infection: and S/S of infection include fever, redness, warmth, etc. Urinary Tract Infection: Monitor for frequency, burning, discomfort, or incontinence. and Nursing will obtain urine sample for urinalysis and C&S when ordered. Aspiration: Clinical staff will monitor for coughing, drooling, congestion., Speech will evaluate swallowing and dsyphasia. and Nursing will monitor patient swallowing during meals. Falls: Patient will be evaluated for Fall Precautions and Patient will be placed on Fall Precautions as indicated per protocol. Skin Breakdown: Nursing will assess skin daily using assessment tool. and Nursing will place on Skin Breakdown Precautions as indicated. Pain: Clinical staff will assess patient's pain level per protocol., Medications will be given, if needed, and the pain level reassessed. and Other methods: Massage, distraction, decrease stimulus, etc. used PRN. Plan of Care Patient requires physician specializing in physical medicine and rehab oversight to provide close medical supervision of rehab issues including: Pain Management, Sleep Problems, Bowel and Bladder, Medical and co-morbidity Management, DVT prophylaxis, Rehabilitation Leadership and Coordination of treatment team Patient needs Physical Therapy: For a minimum of 1 hour and At least 5 out of 7 days Patient needs Physical Therapy to improve:: Mobility, Strengthening, Transfers, Stretching, ROM, Endurance, Stairs, Gait and Balance Patient needs Occupational Therapy: For a minimum of 1 hour and At least 5 out of 7 days Patient needs Occupational Therapy to improve ADL's incl.: Eating, Grooming, Bathing, Dressing, Toileting, Toilet transfers, Community Reintegration, Higher functioning activities, Household tasks, Adaptive Equipment, Splinting and Other activities as determined Patient requires 12/02 Rehabilitation Nursing for: Pain Issues, Identifying and preventing risk factors, Monitoring and reporting current medical conditions, Assisting with ambulation, transfer, and all ADL's, Teaching patients about disease process and medications, Family teaching, Providing safe environment, Bowel and Bladder Issues, Skin integrity and Medication Management Patient needs Photovoltaic Panel Installer/ Case Management for: Discharge Planning, Arranging Home Equipment or Services and Family Interventions Patient needs Dietary and Nutrition Services for: Adequate Nutrition, Nutritional Supplements and Nutritional Education Goals Goals Patient will remain: free from falls Patient will perform eating at: MOD I level of assist. Patient will perform bed mobility at: MOD I level of assist. Patient will complete transfers from bed to chair at: MOD I level of assist. Patient will ambulate: - (165 feet with a wheeled walker at standby assist on various surfaces.) Patient will complete upper body dressing at: MOD I level of assist. Patient will complete lower body dressing at: MOD I level of assist. (With adaptive equipment as needed for increased independence with self-care.) Patient will complete toilet transfer at: MOD I level of assist. Patient will complete toileting at: MOD I level of assist. Patient will perform bathing at: MOD I level of assist. (With adaptive equipment as needed to increase independence with self-care.) Patient will perform Tub/Shower transfer at: - (Supervision for the first 1 to 2 weeks post discharge) Patient will complete grooming at: MOD I level of assist. (While standing at the sink) Patient will achieve: - (1 curb step with a wheeled walker at contact-guard assist/min assist to allow access to the community.) Patient will have pain level of: of 3 or less Patient's skin will: remain intact Patient will receive: adequate nutrition. Discharge Planning Pt Prognosis for Sig. Practical Improv. w/in Reasonable Time: Good Estimated Length of stay (days): 21 Anticipated D/C Destination: Home with Outpt Therapy Was Preadmission Assessment Accurate?: Yes
[2023-12-25] MEDS: Insulin Lispro 100 UNIT/ML INSULN.PEN 10 UNIT SC ×2 (12:09→17:04)
--- NOTE | 2023-12-25 12:17 | PCM.PROGNOTE ---
Subjective Subjective Afebrile VSS -blood pressure since arrival on rehab is ranged from 160/73 to 177/84 Maintaining appropriate oxygen saturation on RA Oral intake - FOOD good FLUIDS fair, mucous membranes are dry, encouraged to increase fluid intake Postvoid residual last night was 459 Blood sugar record was reviewed and blood sugars have ranged from 205 to 245 since arrival on rehab. Hemoglobin A1c was 7.1 recently. Discussed with nursing - no problems that need addressed Reviewed the THERAPY notes Medication list reviewed. Alec denies cephalgia, lightheadedness, grogginess, chest pain, cough, shortness of breath, palpitations, nausea/vomiting/abdominal pain/diarrhea/constipation, suprapubic pain, dysuria and calf tenderness. He tells me that his pain when lying in bed or sitting in the recliner is still 1-2 but when he is up with physical therapy and bearing weight it is a 7 or 8. All AM lab drawn this morning was personally reviewed. Both potassium and phosphorus are low. Hemoglobin is 10.5 secondary to acute blood loss related to the fracture and surgery. Objective Data Objective Data Vital Signs: Vital Signs Temp Pulse Resp BP Pulse Ox O2 Del Method O2 Flow Rate 97.7 F L 89 18 178/84 H 94 Room Air 2 12/25/23 07:52 12/25/23 07:52 12/25/23 07:52 12/25/23 07:52 12/25/23 07:52 12/25/23 07:52 12/24/23 21:27 Oxygen Flow Rate (L/min) 2 Oxygen Delivery Method Room Air Weight: 178 lb 12.718 oz Body Mass Index (BMI) 28.0 Intake & Output: Intake and Output for Last 24 Hours 12/23/23 12/24/23 12/25/23 23:59 23:59 23:59 Intake Total 640 / 640 250 / 250 Output Total 850 / 850 350 / 350 Balance -210 / -210 -100 / -100 Lab / Micro Data 12/25/23 05:07 12/25/23 05:07 Labs: Laboratory Results - last 24 hr 12/24/23 17:34: POC Glucose 217 H 12/24/23 21:32: POC Glucose 245 H 12/25/23 05:07: WBC 9.7, RBC 3.52 L, Hgb 10.7 L, Hct 31.4 L, MCV 89.2, MCH 30.4, MCHC 34.1, RDW Std Deviation 43.5, RDW Coeff of [place] 13.3, Plt Count 169, MPV 12.4 H, Immature Gran % (Auto) 0.300, Neut % (Auto) 66.5, Lymph % (Auto) 15.0 L, [place] % (Auto) 9.2, Eos % (Auto) 8.1 H, Baso % (Auto) 0.9, Absolute Neuts (auto) 6.4, Absolute Lymphs (auto) 1.45, Nucleated RBC % 0, Sodium 139, Potassium 3.4 L, Chloride 108 H, Carbon Dioxide 26.0, Anion Gap 5, BUN 6 L, Creatinine 0.62 L, Estim Creat Clear Calc 87.62, Est GFR (MDRD) Af Amer 164, Est GFR (MDRD) Non-Af 135, BUN/Creatinine Ratio 9.6 L, Glucose 195 H, Calcium 8.7, Phosphorus 1.4 L, Magnesium 1.9, Total Bilirubin 0.80, AST 25, ALT 19, Alkaline Phosphatase 116, Total Protein 5.8 L, Albumin 2.6 L, Globulin 3.2, Albumin/Globulin Ratio 0.8 L 12/25/23 06:37: POC Glucose 205 H Physical Exam Const alert, oriented x3 and no apparent distress General Appearance: cooperative Orientation / Consciousness: Negative for confused HEENT Mouth: dry mucous membranes Resp clear to auscultation bilaterally Cardio regular rate, regular rhythm, no murmurs and no gallops GI normal to inspection, nondistended, normoactive bowel sounds, soft to palpation and non-tender Extremity no calf tenderness General Extremity: Negative for edema Skin Rashes: no rashes Assessment & Plan Assessment/Plan (1) Debility: (2) Injury due to fall: QUALIFIERS: Encounter type: subsequent encounter Qualified Code(s): W19.XXXD - Unspecified fall, subsequent encounter (3) Intertrochanteric fracture of left hip: QUALIFIERS: Encounter type: subsequent encounter Fracture type: closed Fracture alignment: nondisplaced (4) History of open reduction and internal fixation (ORIF) procedure: (5) Acute blood loss anemia: (6) Hypophosphatemia: (7) Hypokalemia: (8) Diabetes type 2, controlled: QUALIFIERS: Diabetes mellitus ocean transportation intermediary insulin use: with ocean transportation intermediary use Diabetes mellitus complication status: with ophthalmic complications Diabetes mellitus complication detail: with diabetic retinopathy Diabetic retinopathy severity: with unspecified retinopathy severity Laterality: bilateral (9) Urine retention: (10) BPH (benign prostatic hyperplasia): QUALIFIERS: Lower urinary tract symptom presence: symptoms present Lower urinary tract symptom detail: incomplete bladder emptying Qualified Code(s): N40.1 - Benign prostatic hyperplasia with lower urinary tract symptoms; R39.14 - Feeling of incomplete bladder emptying (11) HTN (hypertension): QUALIFIERS: Hypertension type: primary hypertension Qualified Code(s): I10 - Essential (primary) hypertension PLAN: Plan 1. Continue therapy 2. Check a UA 3. Add a caffeine restriction to current diet to decrease bladder irritability 4. Increase oxycodone to 10 mg p.o. 3 times daily for better pain control. Patient tells me when he is up with therapy and that his pain is a 7 or 8. 5. Supplement potassium 6. Supplement phosphorus and recheck in 4 to 5 days 7. Add metoprolol XL 25 mg p.o. daily to his antihypertensive regimen 8. Check orthostatic vital signs today 9. If the orthostatics are negative consider adding Proscar 5 mg daily to the current drug regimen. 10. Change the diet to carb consistent 1800-calorie, heart healthy 11. Continue blood sugars before meals and at bedtime but only cover AC 3 times daily with the sliding scale. Increase mealtime insulin. Charges/Coding Visit Charges Inpatient E&M: 24352 Subs Hosp L1
[2023-12-25 12:29] LABS: Bedside Glucose 164 mg/dL (74-106)
--- NOTE | 2023-12-25 12:49 | CPS ---
Patient has SMI and PEP from [facility]. Encouraged patient to continue using.
[2023-12-25 13:00] VITALS: BP 157/62; BP 158/68; BP 169/67; PULSE 85; PULSE 89; PULSE 91
[2023-12-25 13:07] VITALS: BP 157/62; PULSE 91
[2023-12-25] MEDS: Metoprolol(XL)Succ 25 MG Tablet PO (13:07)
[2023-12-25] MEDS: Potassium Chloride Oral Tablet 20 MEQ PO ×2 (13:07→17:00)
[2023-12-25] MEDS: oxyCODONE 5 MG Tablet 10 MG PO ×2 (13:08→21:17)
[2023-12-25] MEDS: Na Biphos/Potassium Phosphate PACKET 1 PACKET PO ×2 (13:08→21:15)
[2023-12-25 15:30] VITALS: O2SAT 94
[2023-12-25 17:26] LABS: Bedside Glucose 228 mg/dL (74-106)
[2023-12-25 18:41] LABS: Bacteria 0 SEEN /hpf (None Seen); Mucous, Urine 0 SEEN /hpf (<or=2+); Squamous Epithelial Cells - UA 0 SEEN /hpf (0-5); White Blood Cells 0 SEEN /hpf (0-5)
[2023-12-25 18:44] LABS: Color, Urine Yellow (Yellow); Glucose, Dipstick 1000 mg/dl (Normal); Ketone-Dipstick 15 mg/dl (Negative); Leukocyte Esterase-Dipstick 25 /ul (Negative); Nitrite-Dipstick Negative (Negative); Occult Blood-Urine 250 /ul (Negative); Protein-Dipstick 30 mg/dl (Negative); Urine Bilirubin Dipstick Negative (Negative); Urine Clarity Clear (Clear); Urine Urobilinogen 1 mg/dl (Normal)
[2023-12-25 19:21] LABS: Red Blood Cells-Urine 25-50 SEEN /hpf (0-5)
[2023-12-25] MEDS: Atorvastatin Calcium 20 MG Tablet PO (21:17)
[2023-12-25] MEDS: Insulin Glargine-YFGN 100 UNIT/ML Pen 20 UNIT SC (21:18)
[2023-12-25 21:32] LABS: Bedside Glucose 105 mg/dL (74-106)
[2023-12-25 22:00] VITALS: BP 145/79; PULSE 86; RESP 18; TEMP 37; O2SAT 96
[2023-12-26] MEDS: Dorzolamide 2% 10ml Bottle OPHTHALMIC ×2 (04:54→21:30)
[2023-12-26] MEDS: Acetaminophen 500 MG Tablet 1000 MG PO ×3 (04:55→21:30)
[2023-12-26] MEDS: Timolol 0.5% 5ML OPTH.BTL OPHTHALMIC ×2 (04:56→21:30)
[2023-12-26] MEDS: Latanoprost 0.005% 1 Bottle OPHTHALMIC (04:56)
[2023-12-26] MEDS: Na Biphos/Potassium Phosphate PACKET 1 PACKET PO ×3 (04:57→21:29)
[2023-12-26 06:00] VITALS: BMI 27.6
[2023-12-26 07:00] LABS: Bedside Glucose 133 mg/dL (74-106)
[2023-12-26] MEDS: oxyCODONE 5 MG Tablet 10 MG PO ×3 (07:52→21:28)
[2023-12-26] MEDS: Insulin Lispro 100 UNIT/ML INSULN.PEN 8 UNIT SC (07:52)
[2023-12-26] MEDS: Vitamin B Comp W-C Capsule 1 CAP PO ×2 (07:52→17:53)
[2023-12-26] MEDS: Lisinopril 20 MG Tablet PO ×2 (07:52→21:30)
[2023-12-26] MEDS: Tamsulosin HCl 0.4 MG Capsule PO ×2 (07:52→17:53)
[2023-12-26 07:53] VITALS: PULSE 78
[2023-12-26] MEDS: Metoprolol(XL)Succ 25 MG Tablet PO (07:53)
[2023-12-26] MEDS: Heparin Injection (Vial) 5,000 UNIT/ML VIAL 5000 UNIT SC ×2 (07:53→21:29)
[2023-12-26] MEDS: Senna/Docusate Sodium 1 Tablet 2 TABLET PO (07:56)
[2023-12-26 07:59] VITALS: BP 170/71; PULSE 78; RESP 18; TEMP 36.6; O2SAT 97
[2023-12-26 11:49] LABS: Bedside Glucose 149 mg/dL (74-106)
[2023-12-26] MEDS: Insulin Lispro 100 UNIT/ML INSULN.PEN 10 UNIT SC ×2 (11:54→17:53)
[2023-12-26] MEDS: Menthol/Lanolin/Calamine/Znox 113 GM Tube 1 APPLIC TOPICAL ×2 (15:08→21:28)
[2023-12-26 17:01] LABS: Bedside Glucose 80 mg/dL (74-106)
[2023-12-26 18:17] LABS: Bedside Glucose 144 mg/dL (74-106)
[2023-12-26 19:34] VITALS: BP 176/80; PULSE 91; RESP 16; TEMP 36.6; O2SAT 95
[2023-12-26] MEDS: Atorvastatin Calcium 20 MG Tablet PO (21:29)
[2023-12-26] MEDS: Insulin Glargine-YFGN 100 UNIT/ML Pen 20 UNIT SC (21:29)
[2023-12-26 23:55] LABS: Bedside Glucose 166 mg/dL (74-106)
[2023-12-27] MEDS: Na Biphos/Potassium Phosphate PACKET 1 PACKET PO ×3 (05:23→20:14)
[2023-12-27] MEDS: Timolol 0.5% 5ML OPTH.BTL OPHTHALMIC ×2 (05:25→20:15)
[2023-12-27] MEDS: Latanoprost 0.005% 1 Bottle OPHTHALMIC (05:28)
[2023-12-27] MEDS: Dorzolamide 2% 10ml Bottle OPHTHALMIC ×2 (05:28→20:16)
[2023-12-27] MEDS: Acetaminophen 500 MG Tablet 1000 MG PO ×3 (05:30→20:15)
[2023-12-27 07:29] VITALS: PULSE 74
[2023-12-27 07:29] LABS: Bedside Glucose 128 mg/dL (74-106)
[2023-12-27] MEDS: Metoprolol(XL)Succ 25 MG Tablet PO ×2 (07:29→10:04)
[2023-12-27] MEDS: Insulin Lispro 100 UNIT/ML INSULN.PEN 8 UNIT SC ×2 (07:29→12:00)
[2023-12-27] MEDS: Tamsulosin HCl 0.4 MG Capsule PO ×2 (07:30→16:54)
[2023-12-27] MEDS: Senna/Docusate Sodium 1 Tablet 2 TABLET PO ×2 (07:30→20:15)
[2023-12-27] MEDS: Vitamin B Comp W-C Capsule 1 CAP PO ×2 (07:30→16:54)
[2023-12-27] MEDS: Lisinopril 20 MG Tablet PO ×2 (07:30→20:16)
[2023-12-27] MEDS: oxyCODONE 5 MG Tablet 10 MG PO ×3 (07:33→20:19)
[2023-12-27] MEDS: Menthol/Lanolin/Calamine/Znox 113 GM Tube 1 APPLIC TOPICAL ×2 (07:33→20:13)
[2023-12-27] MEDS: Heparin Injection (Vial) 5,000 UNIT/ML VIAL 5000 UNIT SC ×2 (07:41→20:14)
[2023-12-27 08:50] VITALS: BP 163/74; PULSE 74; RESP 16; TEMP 36.8; O2SAT 97
--- NOTE | 2023-12-27 09:05 | PN_ITS ---
Subjective Subjective Alec was seen on team rounds today. His Jessie was present in the room for rounds. All questions were answered to their satisfaction. Afebrile VSS -systolic blood pressure remains elevated. Over the past 48 hours the blood pressure has ranged from 145/79 to 178/84. Heart rate is ranged from 74-91. Antihypertensives include lisinopril 20 mg twice daily and metoprolol 25 mg daily. Maintaining appropriate oxygen saturation on RA Oral intake - FOOD good FLUIDS good The blood sugar record was reviewed. The fasting blood sugar yesterday morning was 133 and today it is 128. He had no blood sugars greater than 180 yesterday but the blood sugar had supper was on the low side at 80. Discussed with nursing - no problems that need addressed Reviewed the THERAPY notes Medication list reviewed. He is c/o pain in the LLE. it starts in the lateral hip area and radiates anteriorly down past the knee. Wt bearing exacerbates the pain. He denies numbness. When he is sitting the pain is minimal and he has no pain when lying down. When he is seated and I extend the LLE he has pain. Dorsiflexing the R foot when the leg is extended does not increase the pain. He tells me that he did not have this pain prior to the surgery. I suspect the pain may be radicular. Alec denies lightheadedness, chest pain, shortness of breath, cough, nausea/vomiting/abdominal pain, dysuria and calf pain. Objective Data Objective Data Vital Signs: Vital Signs Temp Pulse Resp BP Pulse Ox O2 Del Method O2 Flow Rate 98.2 F 74 16 163/74 H 97 Room Air 2 12/27/23 08:50 12/27/23 08:50 12/27/23 08:50 12/27/23 08:50 12/27/23 08:50 12/27/23 08:50 12/24/23 21:27 Oxygen Flow Rate (L/min) 2 Oxygen Delivery Method Room Air Weight: 176 lb Body Mass Index (BMI) 27.6 Intake & Output: Intake and Output for Last 24 Hours 12/25/23 12/26/23 12/27/23 23:59 23:59 23:59 Intake Total 1840 / 2090 1550 / 1550 480 / 480 Output Total 1400 / 1400 1325 / 1325 1425 / 1425 Balance 440 / 690 225 / 225 -945 / -945 Lab / Micro Data 12/27/23 09:27 12/28/23 05:10 Labs: Laboratory Results - last 24 hr 12/26/23 11:31: POC Glucose 149 H 12/26/23 16:40: POC Glucose 80 12/26/23 17:56: POC Glucose 144 H 12/26/23 23:36: POC Glucose 166 H 12/27/23 05:36: POC Glucose 128 H Physical Exam Const alert General Appearance: cooperative Orientation / Consciousness: Negative for confused Resp clear to auscultation bilaterally Cardio regular rate, regular rhythm, no murmurs and no gallops GI normal to inspection, nondistended, normoactive bowel sounds, soft to palpation and non-tender Extremity no calf tenderness Extremity Narrative: he has pain in the Left lateral hip area and it radiates into the anterior thigh. Denies pain in the left buttock. General Extremity: Negative for edema Skin General Skin Exam: no breakdown Rashes: no rashes Wound Narrative: Incisions are intact with no dehiscence, no iris-incisional erythema, no purulent discharge. Psych affect normal Appearance: appropriate Activity / Motor Behavior: Negative for restless Assessment & Plan Assessment/Plan (1) Debility: (2) Injury due to fall: QUALIFIERS: Encounter type: subsequent encounter Qualified Code(s): W19.XXXD - Unspecified fall, subsequent encounter (3) Intertrochanteric fracture of left hip: QUALIFIERS: Encounter type: subsequent encounter Fracture type: c losed Fracture alignment: nondisplaced Fracture healing: with routine healing Qualified Code(s): S72.145D - Nondisplaced intertrochanteric fracture of left femur, subsequent encounter for closed fracture with routine healing (4) History of open reduction and internal fixation (ORIF) procedure: (5) Acute blood loss anemia: (6) Diabetes type 2, controlled: 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 Diabetes mellitus complication status: with ophthalmic complications Diabetes mellitus complication detail: with diabetic retinopathy Diabetic retinopathy severity: with unspecified retinopathy severity Laterality: b ilateral Diabetes mellitus macular edema: macular edema presence unspecified Q ualified Code(s): E11.319 - Type 2 diabetes mellitus with unspecified diabetic retinopathy without macular edema; Z79.4 - terminal worker (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 Continue therapy 2. Check a BMP, mag, HH and Phos in the AM. 3. Change the scheduled lispro to 8 units with breakfast, 8 units with lunch and 10 units with supper. Continue the sliding scale for another 1 to 2 days and if we are not having to cover blood sugars will discontinue. 4. Add gabapentin 100 mg twice daily to the current drug regimen and start now. 5. Add Proscar 5 mg daily to his drug regimen. 6. Check orthostatic vital signs daily for the next 3 days. He is currently not orthostatic Charges/Coding Visit Charges Inpatient E&M: 08740 Subs Hosp L2
[2023-12-27 09:39] LABS: Hematocrit 35.3 % (40-54); Hemoglobin 11.9 g/dL (13.0-16.5)
[2023-12-27 10:04] VITALS: PULSE 78
[2023-12-27] MEDS: Gabapentin 100 MG Capsule PO ×2 (10:04→16:54)
[2023-12-27] MEDS: Insulin Lispro 100 UNIT/ML INSULN.PEN SC (11:59)
[2023-12-27] MEDS: Finasteride 5 MG Tablet PO (12:00)
[2023-12-27 12:06] LABS: Bedside Glucose 221 mg/dL (74-106)
--- NOTE | 2023-12-27 12:55 | CASEMGMT ---
Social Work- TEAMS Meeting IDT met with patient and Jessie at bedside to complete care planning. Discussed patient progress with therapy (PT/OT) and nursing. Patient admit on 12/23. Patient is progressing with therapy. Patient requires assistance with bed mobility.Patient will require further evaluation to determine progress. Patient expressed goals to be able to get into truck. Patient's obtained hip kit to assist with ambulation support. SW introduced self and role at [facility]. SW educated patient and on Medicare coverage and benefits. Patient has been approved for 16 days; anticipates discharge 01/08.Patient's goal is functionally improve. Physician discussed pain management to support patient nerve pain. SW will be meeting with patient post Teams meeting to complete assessment. MAYA Gomez
[2023-12-27 14:56] VITALS: BP 120/59; BP 125/60; BP 137/57; PULSE 81; PULSE 86; PULSE 88
--- NOTE | 2023-12-27 15:57 | CHAPLAIN ---
Type of Pastoral Visit _x__ Initial Visit ___ Follow-up Visit ___ On-call Visit ___ General Patient Visit ___ Spiritual Assessment ___ Family Conference ___ Bereavement ___ Rapid Response ___ Code Blue ___ Other (describe below) Pastoral Care Referral From _x__ Patient ___ Family ___ Nurse ___ Physician ___ Cork Painter [employer] Grader ___ Behavioral Health Case Manager ___ Other (describe below) Sacrament/Intervention _x__ Active listening ___ Anointing ___ Bahai ___ Bereavement ___ Communion ___ Samantha exploration ___ ___ Life review _x__ Prayer ___ Reconciliation ___ Sacrament of Sick _x__ Supportive presence ___ Wedding ___ Other (describe below) Pastoral Comments patient shares his story of injury, his concerns at this time of recovery, his samantha group, and family; pt has healing and recovery as main concern; prayer and presence welcomed
[2023-12-27 16:29] LABS: Bedside Glucose 86 mg/dL (74-106)
--- NOTE | 2023-12-27 16:33 | CASEMGMT ---
Social Work SW met with pt and completed psychosocial assessment. Pt has no advance directives and is not interested in additional information at this time. Pt lives in a one story home and was completely independent with all ADLs and IADLs prior to hip fracture. Pt plans to return home at time of dc. 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 Pt notified that [facility] approved 16 days with an anticipated dc date of 01/08. SW will continue to follow for dc planning and support. CHANELLE Jacome
[2023-12-27] MEDS: Magnesium Hydroxide 30 ML UDC PO (16:54)
[2023-12-27] MEDS: Insulin Lispro 100 UNIT/ML INSULN.PEN 10 UNIT SC (16:54)
[2023-12-27 19:48] VITALS: BP 144/65; PULSE 73; RESP 16; TEMP 36.6; O2SAT 96
[2023-12-27] MEDS: Atorvastatin Calcium 20 MG Tablet PO (20:14)
[2023-12-27] MEDS: Polyethylene Glycol 3350 17 GM PACKET PO (20:14)
[2023-12-27] MEDS: Insulin Glargine-YFGN 100 UNIT/ML Pen 20 UNIT SC (20:26)
[2023-12-27 21:32] LABS: Bedside Glucose 233 mg/dL (74-106)
[2023-12-28] MEDS: Na Biphos/Potassium Phosphate PACKET 1 PACKET PO ×3 (05:49→21:34)
[2023-12-28] MEDS: Timolol 0.5% 5ML OPTH.BTL OPHTHALMIC ×2 (05:49→21:36)
[2023-12-28] MEDS: Dorzolamide 2% 10ml Bottle OPHTHALMIC ×2 (05:50→21:37)
[2023-12-28] MEDS: Latanoprost 0.005% 1 Bottle OPHTHALMIC (05:50)
[2023-12-28] MEDS: Acetaminophen 500 MG Tablet 1000 MG PO ×3 (05:50→21:35)
[2023-12-28 06:51] VITALS: O2SAT 92
[2023-12-28 07:00] LABS: Bedside Glucose 89 mg/dL (74-106)
[2023-12-28 07:24] LABS: Anion Gap 6 (5-15); BUN 12 mg/dL (7-18); BUN/Creat Ratio 16.9 RATIO (10-20); Calcium,Total 9.5 mg/dL (8.5-10.1); Chloride 105 mmol/L (98-107); Creatinine, Serum 0.71 mg/dL (0.70-1.30); EST Glomerular Filtration Rate 117 mL/min (>60); Est Glom Filt Rate - Afr Amer 141 mL/min (>60); Estimated Creatinine Clearance 87.01 ml/min; Glucose 81 mg/dL (74-106); Magnesium 2.1 mg/dL (1.6-2.6); Phosphorus 3.7 mg/dL (2.5-4.9); Potassium 3.7 mmol/L (3.5-5.1); Sodium Level 139 mmol/L (136-145)
[2023-12-28 08:35] VITALS: BP 153/70; PULSE 72; RESP 20; TEMP 36.7; O2SAT 96
[2023-12-28 08:43] VITALS: BP 157/70; PULSE 86
[2023-12-28] MEDS: Metoprolol(XL)Succ 50 MG Tablet PO ×2 (08:43→12:00)
[2023-12-28] MEDS: Tamsulosin HCl 0.4 MG Capsule PO ×2 (08:45→17:09)
[2023-12-28] MEDS: Heparin Injection (Vial) 5,000 UNIT/ML VIAL 5000 UNIT SC ×2 (08:45→21:41)
[2023-12-28] MEDS: Vitamin B Comp W-C Capsule 1 CAP PO ×2 (08:45→17:09)
[2023-12-28] MEDS: Insulin Lispro 100 UNIT/ML INSULN.PEN 8 UNIT SC ×2 (08:46→12:01)
[2023-12-28] MEDS: Senna/Docusate Sodium 1 Tablet 2 TABLET PO ×2 (08:47→21:43)
[2023-12-28] MEDS: Finasteride 5 MG Tablet PO (08:47)
[2023-12-28] MEDS: Lisinopril 20 MG Tablet PO ×2 (08:48→21:35)
[2023-12-28] MEDS: oxyCODONE 5 MG Tablet 10 MG PO ×3 (08:51→20:18)
[2023-12-28] MEDS: Gabapentin 100 MG Capsule PO ×2 (08:51→17:11)
[2023-12-28 08:58] LABS: Bedside Glucose 250 mg/dL (74-106)
[2023-12-28 11:20] LABS: Bedside Glucose 152 mg/dL (74-106)
[2023-12-28 12:00] VITALS: PULSE 82
[2023-12-28] MEDS: Insulin Lispro 100 UNIT/ML INSULN.PEN SC (12:00)
[2023-12-28] MEDS: Menthol/Lanolin/Calamine/Znox 113 GM Tube 1 APPLIC TOPICAL ×2 (12:02→21:44)
--- NOTE | 2023-12-28 14:28 | NURSING ---
Dsg to L hip incisions removed. Would is well approximated, no drainage noted. tasha intact. Left KASHMIR
--- NOTE | 2023-12-28 14:35 | NURSING ---
This nurse called and spoke with Dr. Guan's office to clarify orders regarding wound care for post op pt. Nurse at office stated that pt will need X rays on hip 14 days post op, and staple removal 14 days post op. Pt can complete testing at office and have tasha removed at office, if not, OK for staff at [facility] to remove and obtain images. Dsg is to be changed prn, but once no drainage noted, may be KASHMIR
[2023-12-28 16:25] LABS: Bedside Glucose 82 mg/dL (74-106)
[2023-12-28] MEDS: Insulin Lispro 100 UNIT/ML INSULN.PEN 10 UNIT SC (17:08)
--- NOTE | 2023-12-28 17:26 | PN_ITS ---
Subjective Subjective Afebrile Vital signs stable The blood sugar record was reviewed. The blood sugar prior to supper has been low the past 2 days but he has been covered at lunchtime. Will discontinue the sliding scale insulin. Continue lispro 8 units with breakfast, 8 units with lunch and 10 units with supper. Continue to monitor blood sugars before meals and at bedtime. All lab drawn this morning was personally reviewed. Potassium is normal today at 3.7. The BUN is 12 and the creatinine is stable at 0.71. Phosphorus is 3.7, up from 1.4 prior to supplementation. Magnesium is 2.1. Hemoglobin is stable at 11.9. Alec tells me that the pain in the left hip and L anterior thigh is better today. He did better with therapy and did not have as much pain with weight bearing. He denies chest pain, shortness of breath, calf tenderness, dysuria. The postvoid residual this morning was much better at 92. He denies lightheadedness. Proscar was added to the drug regimen yesterday. Objective Data Objective Data Vital Signs: Vital Signs Temp Pulse Resp BP Pulse Ox O2 Del Method O2 Flow Rate 98.0 F 82 20 H 157/70 H 96 Room Air 2 12/28/23 08:35 12/28/23 12:00 12/28/23 08:35 12/28/23 08:43 12/28/23 08:35 12/28/23 10:00 12/24/23 21:27 Oxygen Flow Rate (L/min) 2 Oxygen Delivery Method Room Air Weight: 176 lb Body Mass Index (BMI) 27.6 Intake & Output: Intake and Output for Last 24 Hours 12/26/23 12/27/23 12/28/23 23:59 23:59 23:59 Intake Total 1550 / 1550 1540 / 1740 2160 / 2160 Output Total 1325 / 1325 2075 / 2075 650 / 650 Balance 225 / 225 -535 / -335 1510 / 1510 Lab / Micro Data 12/27/23 09:27 12/28/23 05:10 Labs: Laboratory Results - last 24 hr 12/27/23 20:26: POC Glucose 233 H 12/28/23 05:10: Sodium 139, Potassium 3.7, Chloride 105, Carbon Dioxide 28.0, Anion Gap 6, BUN 12, Creatinine 0.71, Estim Creat Clear Calc 87.01, Est GFR (MDRD) Af Amer 141, Est GFR (MDRD) Non-Af 117, BUN/Creatinine Ratio 16.9, Glucose 81, Calcium 9.5, Phosphorus 3.7, Magnesium 2.1 12/28/23 05:53: POC Glucose 89 12/28/23 08:37: POC Glucose 250 H 12/28/23 10:59: POC Glucose 152 H 12/28/23 15:56: POC Glucose 82 Micro: Microbiology 12/26/23 01:30 Urine Catheter - Catheter Urine Culture - Final Pseudomonas aeruginosa Physical Exam Const alert, oriented x3 and no apparent distress Constitutional Narrative: Sitting in the recliner at the bedside and appears comfortable. General Appearance: cooperative Orientation / Consciousness: Negative for confused HEENT head/scalp atraumatic Eyes EOMs intact bilaterally, conjunctivae normal and no scleral icterus Eyes Narrative: No discharge from the eyes and no mattering of the eyelashes. General Eye: normal appearance of both eyes Neck supple, no JVD, No nodes and no carotid bruits General: trachea midline Chest Chest: symmetrical chest wall rise Resp clear to auscultation bilaterally Effort and Inspection: able to speak in complete sentences Cardio regular rate and regular rhythm Cardio Narrative: No ectopy GI normal to inspection, nondistended, normoactive bowel sounds, soft to palpation and non-tender GI Narrative: No guarding with palpation Extremity no calf tenderness Extremity Narrative: he has pain in the Left lateral hip area and it radiates into the anterior thigh. Denies pain in the left buttock. General Extremity: Negative for edema Skin no jaundice General Skin Exam: no breakdown Rashes: no rashes Wound Narrative: Incisions are intact with no dehiscence, no iris-incisional erythema, no purulent discharge. Neuro oriented x3, CN's II-XII intact bilaterally and moves all extremities Psych mental status grossly normal, thought process normal, cooperative and affect normal Appearance: grossly normal and appropriate Attitude: calm Activity / Motor Behavior: appropriate eye contact; Negative for restless Speech: normal speech Mood & Affect: euthymic mood Assessment & Plan Assessment/Plan (1) Debility: (2) Injury due to fall: QUALIFIERS: Encounter type: subsequent encounter Qualified Code(s): W19.XXXD - Unspecified fall, subsequent encounter (3) Intertrochanteric fracture of left hip: QUALIFIERS: Encounter type: subsequent encounter Fracture type: c losed Fracture alignment: nondisplaced Fracture healing: with routine healing Qualified Code(s): S72.145D - Nondisplaced intertrochanteric fracture of left femur, subsequent encounter for closed fracture with routine healing (4) History of open reduction and internal fixation (ORIF) procedure: (5) Acute blood loss anemia: PLAN: Stable (6) Diabetes type 2, controlled: QUALIFIERS: Diabetes mellitus 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 Proscar has been added to Flomax for treatment of BPH. (8) BPH (benign prostatic hyperplasia): QUALIFIERS: Lower urinary tract symptom presence: symptoms present Lower urinary tract symptom detail: incomplete bladder emptying Qualified Code(s): N40.1 - Benign prostatic hyperplasia with lower urinary tract symptoms; R39.14 - Feeling of incomplete bladder emptying (9) HTN (hypertension): QUALIFIERS: Hypertension type: primary hypertension Qualified Code(s): I10 - Essential (primary) hypertension (10) Hypokalemia: PLAN: Resolved (11) Hypophosphatemia: PLAN: Resolved (12) Radicular leg pain: PLAN: Better with the addition of gabapentin 100 mg twice daily to the drug regimen. PLAN: Plan 1. Continue therapy 2. Discontinue the sliding scale insulin 3. Continue Proscar and Flomax. Patient will let me know if he begins experiencing lightheadedness. 4. Recheck orthostatics on Sunday. 5. Continue gabapentin 100 mg twice daily for radicular pain. 6. Continue oxycodone 10 mg 3 times daily through the weekend and start to taper on Sunday. Charges/Coding Visit Charges Inpatient E&M: 45857 Subs Hosp L1
[2023-12-28 20:16] VITALS: BP 151/70; PULSE 69; RESP 16; TEMP 36.5; O2SAT 95
[2023-12-28] MEDS: Insulin Glargine-YFGN 100 UNIT/ML Pen 20 UNIT SC (21:39)
[2023-12-28] MEDS: Atorvastatin Calcium 20 MG Tablet PO (21:43)
[2023-12-28 22:50] LABS: Bedside Glucose 185 mg/dL (74-106)
[2023-12-29] MEDS: oxyCODONE 5 MG Tablet 10 MG PO ×3 (06:14→21:00)
[2023-12-29] MEDS: Acetaminophen 500 MG Tablet 1000 MG PO ×3 (06:14→21:07)
[2023-12-29] MEDS: Na Biphos/Potassium Phosphate PACKET 1 PACKET PO (06:14)
[2023-12-29] MEDS: Dorzolamide 2% 10ml Bottle OPHTHALMIC ×2 (06:17→21:09)
[2023-12-29] MEDS: Timolol 0.5% 5ML OPTH.BTL OPHTHALMIC ×2 (06:17→21:09)
[2023-12-29] MEDS: Latanoprost 0.005% 1 Bottle OPHTHALMIC (06:18)
[2023-12-29 06:58] LABS: Bedside Glucose 110 mg/dL (74-106)
[2023-12-29] MEDS: Insulin Lispro 100 UNIT/ML INSULN.PEN 8 UNIT SC ×2 (07:22→11:57)
[2023-12-29] MEDS: Tamsulosin HCl 0.4 MG Capsule PO ×2 (08:04→17:05)
[2023-12-29] MEDS: Vitamin B Comp W-C Capsule 1 CAP PO ×2 (08:04→17:03)
[2023-12-29] MEDS: Finasteride 5 MG Tablet PO (08:05)
[2023-12-29] MEDS: Heparin Injection (Vial) 5,000 UNIT/ML VIAL 5000 UNIT SC ×2 (08:05→21:06)
[2023-12-29 08:06] VITALS: BP 166/74; PULSE 68
[2023-12-29] MEDS: Senna/Docusate Sodium 1 Tablet 2 TABLET PO ×2 (08:06→21:07)
[2023-12-29] MEDS: Metoprolol(XL)Succ 50 MG Tablet PO (08:06)
[2023-12-29] MEDS: Lisinopril 20 MG Tablet PO ×2 (08:08→21:08)
[2023-12-29] MEDS: Gabapentin 100 MG Capsule PO ×2 (08:09→17:06)
[2023-12-29] MEDS: Menthol/Lanolin/Calamine/Znox 113 GM Tube 1 APPLIC TOPICAL ×2 (08:10→21:05)
[2023-12-29 08:43] VITALS: BP 166/74; PULSE 68; RESP 16; TEMP 36.5; O2SAT 97
[2023-12-29 10:00] VITALS: PULSE 65
[2023-12-29 11:27] LABS: Bedside Glucose 176 mg/dL (74-106)
[2023-12-29 16:39] LABS: Bedside Glucose 127 mg/dL (74-106)
[2023-12-29] MEDS: Insulin Lispro 100 UNIT/ML INSULN.PEN 10 UNIT SC (17:03)
[2023-12-29] MEDS: Atorvastatin Calcium 20 MG Tablet PO (21:07)
[2023-12-29 21:22] VITALS: BP 120/55; PULSE 68; RESP 16; TEMP 36.6; O2SAT 96
[2023-12-29] MEDS: Insulin Glargine-YFGN 100 UNIT/ML Pen 20 UNIT SC (21:29)
[2023-12-29 21:50] LABS: Bedside Glucose 120 mg/dL (74-106)
[2023-12-30] MEDS: Acetaminophen 500 MG Tablet 1000 MG PO ×3 (05:13→22:13)
[2023-12-30] MEDS: Dorzolamide 2% 10ml Bottle OPHTHALMIC ×2 (05:13→22:15)
[2023-12-30] MEDS: Timolol 0.5% 5ML OPTH.BTL OPHTHALMIC ×2 (05:13→22:15)
[2023-12-30] MEDS: Latanoprost 0.005% 1 Bottle OPHTHALMIC (05:14)
[2023-12-30] MEDS: oxyCODONE 5 MG Tablet 10 MG PO ×3 (06:42→19:42)
[2023-12-30 07:01] LABS: Bedside Glucose 93 mg/dL (74-106)
[2023-12-30] MEDS: Insulin Lispro 100 UNIT/ML INSULN.PEN 8 UNIT SC ×2 (07:57→12:52)
[2023-12-30] MEDS: Vitamin B Comp W-C Capsule 1 CAP PO ×2 (07:57→17:05)
[2023-12-30 07:58] VITALS: PULSE 88
[2023-12-30] MEDS: Lisinopril 20 MG Tablet PO ×2 (07:58→22:14)
[2023-12-30] MEDS: Heparin Injection (Vial) 5,000 UNIT/ML VIAL 5000 UNIT SC ×2 (07:58→22:14)
[2023-12-30] MEDS: Finasteride 5 MG Tablet PO (07:58)
[2023-12-30] MEDS: Tamsulosin HCl 0.4 MG Capsule PO ×2 (07:58→17:06)
[2023-12-30] MEDS: Metoprolol(XL)Succ 50 MG Tablet PO (07:58)
[2023-12-30] MEDS: Gabapentin 100 MG Capsule PO ×2 (08:01→17:07)
[2023-12-30 08:12] VITALS: BP 174/69; PULSE 66; RESP 17; TEMP 36.8; O2SAT 94
[2023-12-30 10:00] VITALS: O2SAT 95
[2023-12-30 11:47] LABS: Bedside Glucose 171 mg/dL (74-106)
[2023-12-30] MEDS: Menthol/Lanolin/Calamine/Znox 113 GM Tube 1 APPLIC TOPICAL ×2 (12:53→22:15)
[2023-12-30 16:27] LABS: Bedside Glucose 112 mg/dL (74-106)
[2023-12-30] MEDS: Insulin Lispro 100 UNIT/ML INSULN.PEN 10 UNIT SC (17:06)
[2023-12-30 19:29] VITALS: BP 131/63; PULSE 68; RESP 16; TEMP 36.5; O2SAT 97
[2023-12-30] MEDS: Insulin Glargine-YFGN 100 UNIT/ML Pen 20 UNIT SC (22:12)
[2023-12-30] MEDS: Atorvastatin Calcium 20 MG Tablet PO (22:14)
[2023-12-30 22:58] LABS: Bedside Glucose 119 mg/dL (74-106)
[2023-12-31] VITALS (8 sets, daily range): BP systolic 120–163; BP diastolic 57–90; PULSE 60–81; RESP 18; TEMP 36.4–36.7; O2SAT 95–97
[2023-12-31] MEDS: Timolol 0.5% 5ML OPTH.BTL OPHTHALMIC ×2 (05:49→20:17)
[2023-12-31] MEDS: Dorzolamide 2% 10ml Bottle OPHTHALMIC ×2 (05:50→20:22)
[2023-12-31] MEDS: Latanoprost 0.005% 1 Bottle OPHTHALMIC (05:51)
[2023-12-31] MEDS: Acetaminophen 500 MG Tablet 1000 MG PO ×3 (05:51→20:18)
[2023-12-31] MEDS: oxyCODONE 5 MG Tablet 10 MG PO (06:50)
[2023-12-31 07:06] LABS: Bedside Glucose 138 mg/dL (74-106)
[2023-12-31] MEDS: Gabapentin 100 MG Capsule PO ×2 (07:46→16:37)
[2023-12-31] MEDS: Vitamin B Comp W-C Capsule 1 CAP PO ×2 (07:46→16:37)
[2023-12-31] MEDS: Tamsulosin HCl 0.4 MG Capsule PO ×2 (07:46→16:37)
[2023-12-31] MEDS: Insulin Lispro 100 UNIT/ML INSULN.PEN 8 UNIT SC ×2 (07:46→12:12)
[2023-12-31] MEDS: Menthol/Lanolin/Calamine/Znox 113 GM Tube 1 APPLIC TOPICAL ×2 (07:48→20:17)
[2023-12-31] MEDS: Metoprolol(XL)Succ 50 MG Tablet PO (07:50)
[2023-12-31] MEDS: Finasteride 5 MG Tablet PO (09:29)
[2023-12-31] MEDS: Lisinopril 20 MG Tablet PO ×2 (09:29→20:19)
[2023-12-31] MEDS: Heparin Injection (Vial) 5,000 UNIT/ML VIAL 5000 UNIT SC ×2 (09:29→20:13)
--- NOTE | 2023-12-31 10:59 | PCM.PROGNOTE ---
Subjective Subjective Afebrile VSS - Maintaining appropriate oxygen saturation on RA Oral intake - FOOD good FLUIDS good The blood sugar record was reviewed and the blood sugars are well-controlled with no hypoglycemia. The sliding scale was discontinued last Sunday. Discussed with nursing - no problems that need addressed Reviewed the THERAPY notes Medication list reviewed. UA on 12/25/2023 had 0 WBCs per high-power field. Urine culture was sent by nursing and had less than 1000 colonies of Pseudomonas. He is afebrile with a normal white blood cell count and there is no need to treat this. UA did show microscopic hematuria with 25-50 RBCs per high-power field. He tells me he is sleeping well at night. Appetite is good. Pain is under better control. He is willing to try going down to 5 mg 3 times daily. The pain in the left thigh has improved. Denies chest pain, shortness of breath, cough, abdominal pain, dysuria and calf pain. Denies lightheadedness. Objective Data Objective Data Vital Signs: Vital Signs Temp Pulse Resp BP Pulse Ox O2 Del Method O2 Flow Rate 97.6 F L 68 18 120/60 95 Room Air 2 12/31/23 07:33 12/31/23 09:28 12/31/23 07:33 12/31/23 09:28 12/31/23 07:33 12/31/23 07:33 12/24/23 21:27 Oxygen Flow Rate (L/min) 2 Oxygen Delivery Method Room Air Weight: 176 lb Body Mass Index (BMI) 27.6 Intake & Output: Intake and Output for Last 24 Hours 12/29/23 12/30/23 12/31/23 23:59 23:59 23:59 Intake Total 1480 / 1480 1830 / 1830 100 / 100 Output Total 2250 / 2250 2330 / 2330 300 / 300 Balance -770 / -770 -500 / -500 -200 / -200 Lab / Micro Data 12/27/23 09:27 12/28/23 05:10 Labs: Laboratory Results - last 24 hr 12/30/23 11:28: POC Glucose 171 H 12/30/23 16:06: POC Glucose 112 H 12/30/23 22:09: POC Glucose 119 H 12/31/23 06:47: POC Glucose 138 H Micro: Microbiology 12/26/23 01:30 Urine Catheter - Catheter Urine Culture - Final Pseudomonas aeruginosa Physical Exam Const alert, oriented x3 and no apparent distress Orientation / Consciousness: Negative for confused Resp normal respiratory effort, normal air movement and clear to auscultation bilaterally Cardio regular rate, regular rhythm and no gallops Cardio Narrative: No ectopy GI normal to inspection, nondistended, normoactive bowel sounds, soft to palpation and non-tender GI Narrative: Senna was held the past 2 days secondary to loose stool. Extremity no calf tenderness Skin Rashes: no rashes Wound Narrative: All 3 incisions in the left lower extremity are intact with no iris-incisional erythema, no purulent discharge and no significant swelling. Ecchymosis is resolving. Psych affect normal Assessment & Plan Assessment/Plan (1) Debility: (2) Injury due to fall: QUALIFIERS: Encounter type: subsequent encounter Qualified Code(s): W19.XXXD - Unspecified fall, subsequent encounter (3) Intertrochanteric fracture of left hip: QUALIFIERS: Encounter type: subsequent encounter Fracture type: closed Fracture alignment: nondisplaced Fracture healing: with routine healing Qualified Code(s): S72.145D - Nondisplaced intertrochanteric fracture of left femur, subsequent encounter for closed fracture with routine healing (4) History of open reduction and internal fixation (ORIF) procedure: (5) Acute blood loss anemia: PLAN: Stable (6) Diabetes type 2, controlled: QUALIFIERS: Diabetes mellitus intermediate insulin use: with intermediate use Diabetes mellitus complication status: with ophthalmic complications Diabetes mellitus complication detail: with diabetic retinopathy Diabetic retinopathy severity: with unspecified retinopathy severity Diabetes mellitus macular edema: macular edema presence unspecified Laterality: bilateral Qualified Code(s): E11.319 - Type 2 diabetes mellitus with unspecified diabetic retinopathy without macular edema; Z79.4 - nursing home (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 PVR's since 12/28/23 have all been less than 200. (8) Radicular leg pain: PLAN: Better with the addition of gabapentin 100 mg twice daily to the drug regimen. PLAN: Plan 1. Continue therapy 2. Decrease oxycodone to 5 mg p.o. 3 times daily. Charges/Coding Visit Charges Inpatient E&M: 56991 [facility] Hosp L1
[2023-12-31 12:10] LABS: Bedside Glucose 136 mg/dL (74-106)
[2023-12-31] MEDS: oxyCODONE 5 MG Tablet PO ×2 (12:14→20:21)
[2023-12-31 16:50] LABS: Bedside Glucose 96 mg/dL (74-106)
[2023-12-31] MEDS: Insulin Lispro 100 UNIT/ML INSULN.PEN 10 UNIT SC (17:43)
[2023-12-31] MEDS: Atorvastatin Calcium 20 MG Tablet PO (20:18)
[2023-12-31] MEDS: Insulin Glargine-YFGN 100 UNIT/ML Pen 20 UNIT SC (20:25)
[2023-12-31 20:49] LABS: Bedside Glucose 249 mg/dL (74-106)
[2024-01-01] MEDS: Acetaminophen 500 MG Tablet 1000 MG PO ×3 (05:51→21:23)
[2024-01-01] MEDS: Latanoprost 0.005% 1 Bottle OPHTHALMIC (05:52)
[2024-01-01] MEDS: Timolol 0.5% 5ML OPTH.BTL OPHTHALMIC ×2 (05:56→21:20)
[2024-01-01] MEDS: oxyCODONE 5 MG Tablet PO ×3 (05:59→20:10)
[2024-01-01 06:00] VITALS: BP 129/61; PULSE 74; RESP 16; TEMP 36.6; O2SAT 98
[2024-01-01] MEDS: Dorzolamide 2% 10ml Bottle OPHTHALMIC ×2 (06:02→21:22)
[2024-01-01 07:03] LABS: Bedside Glucose 110 mg/dL (74-106)
[2024-01-01] MEDS: Insulin Lispro 100 UNIT/ML INSULN.PEN 8 UNIT SC ×2 (07:32→12:15)
[2024-01-01] MEDS: Vitamin B Comp W-C Capsule 1 CAP PO ×2 (07:32→17:09)
[2024-01-01] MEDS: Tamsulosin HCl 0.4 MG Capsule PO ×2 (07:33→17:09)
[2024-01-01] MEDS: Gabapentin 100 MG Capsule PO ×2 (07:34→17:08)
[2024-01-01 09:14] VITALS: PULSE 74
[2024-01-01] MEDS: Finasteride 5 MG Tablet PO (09:14)
[2024-01-01] MEDS: Heparin Injection (Vial) 5,000 UNIT/ML VIAL 5000 UNIT SC ×2 (09:14→21:24)
[2024-01-01] MEDS: Menthol/Lanolin/Calamine/Znox 113 GM Tube 1 APPLIC TOPICAL ×2 (09:14→20:10)
[2024-01-01] MEDS: Lisinopril 20 MG Tablet PO ×2 (09:14→21:22)
[2024-01-01] MEDS: Metoprolol(XL)Succ 50 MG Tablet PO (09:14)
[2024-01-01 11:22] LABS: Bedside Glucose 77 mg/dL (74-106)
[2024-01-01 12:00] VITALS: BP 138/57; PULSE 80
[2024-01-01 16:05] LABS: Bedside Glucose 43 mg/dL (74-106)
[2024-01-01 16:21] LABS: Bedside Glucose 79 mg/dL (74-106)
--- NOTE | 2024-01-01 16:23 | NURSING ---
Pt felt cold and clammy this nurse checked BS -43. OJ and Peanut butter given , rechecked 15 mins later per protocol BS-79. was notified.
[2024-01-01 17:01] LABS: Bedside Glucose 112 mg/dL (74-106)
[2024-01-01] MEDS: Insulin Lispro 100 UNIT/ML INSULN.PEN 10 UNIT SC (17:09)
[2024-01-01 18:00] VITALS: BP 139/82; PULSE 69
[2024-01-01 20:01] VITALS: BP 129/64; PULSE 69; RESP 19; TEMP 36.5; O2SAT 97
[2024-01-01] MEDS: Polyethylene Glycol 3350 17 GM PACKET PO (21:22)
[2024-01-01] MEDS: Senna/Docusate Sodium 1 Tablet 2 TABLET PO (21:23)
[2024-01-01] MEDS: Atorvastatin Calcium 20 MG Tablet PO (21:23)
[2024-01-01] MEDS: Insulin Glargine-YFGN 100 UNIT/ML Pen 20 UNIT SC (21:23)
[2024-01-01 21:48] LABS: Bedside Glucose 214 mg/dL (74-106)
[2024-01-02] MEDS: Acetaminophen 500 MG Tablet 1000 MG PO ×3 (05:07→21:35)
[2024-01-02] MEDS: Latanoprost 0.005% 1 Bottle OPHTHALMIC (05:07)
[2024-01-02] MEDS: Dorzolamide 2% 10ml Bottle OPHTHALMIC ×2 (05:08→21:39)
[2024-01-02] MEDS: Timolol 0.5% 5ML OPTH.BTL OPHTHALMIC ×2 (05:09→21:35)
[2024-01-02 05:12] VITALS: BP 160/62; PULSE 64; RESP 16; TEMP 36.9; O2SAT 95; BMI 27.4
[2024-01-02 07:12] LABS: Bedside Glucose 147 mg/dL (74-106)
[2024-01-02] MEDS: Insulin Lispro 100 UNIT/ML INSULN.PEN 8 UNIT SC ×2 (07:34→12:03)
[2024-01-02] MEDS: Lisinopril 20 MG Tablet PO ×2 (07:34→21:34)
[2024-01-02] MEDS: Menthol/Lanolin/Calamine/Znox 113 GM Tube 1 APPLIC TOPICAL ×2 (07:36→21:38)
[2024-01-02] MEDS: Vitamin B Comp W-C Capsule 1 CAP PO ×2 (07:36→16:15)
[2024-01-02] MEDS: Tamsulosin HCl 0.4 MG Capsule PO ×2 (07:37→16:15)
[2024-01-02] MEDS: Heparin Injection (Vial) 5,000 UNIT/ML VIAL 5000 UNIT SC ×2 (07:37→21:36)
[2024-01-02 07:38] VITALS: BP 160/62; PULSE 64
[2024-01-02] MEDS: Finasteride 5 MG Tablet PO (07:38)
[2024-01-02] MEDS: Metoprolol(XL)Succ 50 MG Tablet PO (07:38)
[2024-01-02] MEDS: oxyCODONE 5 MG Tablet PO ×3 (07:42→21:26)
[2024-01-02] MEDS: Gabapentin 100 MG Capsule PO ×2 (08:32→16:15)
[2024-01-02 11:53] LABS: Bedside Glucose 180 mg/dL (74-106)
[2024-01-02 12:00] VITALS: BP 126/46; PULSE 66
--- NOTE | 2024-01-02 14:36 | PN_ITS ---
Subjective Subjective Afebrile VSS - Maintaining appropriate oxygen saturation on RA Oral intake - FOOD good FLUIDS good The blood sugar record was reviewed. He had a low blood sugar at 77 prior to lunch and then at approximately 3:30 PM had a low blood sugar of 43. At bedtime blood sugar was 214 and the fasting this morning was 147. Prior to lunch blood sugar is 188. He ate 75 to 100% of all his meals yesterday. Etiology of the hypoglycemia is questionable. Will continue to monitor blood sugars 4 times daily with no coverage. If he has additional episodes of hypoglycemia we will need to adjust insulin regimen. Discussed with nursing - no problems that need addressed Reviewed the THERAPY notes Medication list reviewed. Alec has no complaints today. He states his pain is well-controlled and he is sleeping well at night. He is having regular bowel movements. He denies dysuria, lightheadedness, chest pain, shortness of breath, calf pain. Objective Data Objective Data Vital Signs: Vital Signs Temp Pulse Resp BP Pulse Ox O2 Del Method O2 Flow Rate 98.4 F 66 16 126/46 H 95 Room Air 2 01/02/24 05:12 01/02/24 12:00 01/02/24 05:12 01/02/24 12:00 01/02/24 05:12 01/02/24 10:00 12/24/23 21:27 Oxygen Flow Rate (L/min) 2 Oxygen Delivery Method Room Air Weight: 175 lb 4.28 oz Body Mass Index (BMI) 27.4 Intake & Output: Intake and Output for Last 24 Hours 12/31/23 01/01/24 01/02/24 23:59 23:59 23:59 Intake Total 1375 / 1775 1480 / 1730 1320 / 1320 Output Total 1400 / 1850 1250 / 1750 2049 Balance -25 / -75 230 / -20 -730 / -730 Lab / Micro Data 01/04/24 05:00 01/04/24 05:00 Labs: Laboratory Results - last 24 hr 01/01/24 15:39: POC Glucose 43 L* 01/01/24 16:04: POC Glucose 79 01/01/24 16:43: POC Glucose 112 H 01/01/24 21:22: POC Glucose 214 H 01/02/24 06:33: POC Glucose 147 H 01/02/24 11:36: POC Glucose 180 H Micro: Microbiology 12/26/23 01:30 Urine Catheter - Catheter Urine Culture - Final Pseudomonas aeruginosa Physical Exam Const alert, oriented x3 and no apparent distress Resp clear to auscultation bilaterally Cardio regular rate, regular rhythm and no gallops GI normal to inspection, nondistended, normoactive bowel sounds and soft to palpation Extremity no calf tenderness General Extremity: Negative for edema Psych affect normal Assessment & Plan Assessment/Plan (1) Debility: (2) Injury due to fall: QUALIFIERS: Encounter type: subsequent encounter Qualified Code(s): W19.XXXD - Unspecified fall, subsequent encounter (3) Intertrochanteric fracture of left hip: QUALIFIERS: Encounter type: subsequent encounter Fracture type: c losed Fracture alignment: nondisplaced Fracture healing: with routine healing Qualified Code(s): S72.145D - Nondisplaced intertrochanteric fracture of left femur, subsequent encounter for closed fracture with routine healing (4) History of open reduction and internal fixation (ORIF) procedure: (5) Acute blood loss anemia: (6) Diabetes type 2, controlled: 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 Continue therapy 2. Recheck lab on Sunday. Charges/Coding Visit Charges Inpatient E&M: 89435 Subs Hosp L1
[2024-01-02 16:36] LABS: Bedside Glucose 79 mg/dL (74-106)
[2024-01-02] MEDS: Insulin Lispro 100 UNIT/ML INSULN.PEN 10 UNIT SC (17:27)
[2024-01-02 17:55] VITALS: BP 130/52; PULSE 62
[2024-01-02] MEDS: Senna/Docusate Sodium 1 Tablet 2 TABLET PO (21:34)
[2024-01-02] MEDS: Polyethylene Glycol 3350 17 GM PACKET PO (21:34)
[2024-01-02] MEDS: Atorvastatin Calcium 20 MG Tablet PO (21:38)
[2024-01-02] MEDS: Insulin Glargine-YFGN 100 UNIT/ML Pen 20 UNIT SC (21:46)
[2024-01-02 21:56] VITALS: BP 135/58; PULSE 66; RESP 16; TEMP 36.6; O2SAT 96
[2024-01-02 22:00] VITALS: PULSE 62; RESP 17; O2SAT 96
[2024-01-02 22:12] LABS: Bedside Glucose 140 mg/dL (74-106)
[2024-01-03] MEDS: Acetaminophen 500 MG Tablet 1000 MG PO ×3 (05:32→22:44)
[2024-01-03] MEDS: Timolol 0.5% 5ML OPTH.BTL OPHTHALMIC ×2 (05:32→22:44)
[2024-01-03] MEDS: Latanoprost 0.005% 1 Bottle OPHTHALMIC (05:33)
[2024-01-03] MEDS: Dorzolamide 2% 10ml Bottle OPHTHALMIC ×2 (05:33→22:45)
[2024-01-03 05:43] VITALS: BP 143/58; PULSE 61; RESP 16; TEMP 36.3; O2SAT 94
[2024-01-03] MEDS: oxyCODONE 5 MG Tablet PO ×3 (07:15→20:07)
[2024-01-03 07:20] LABS: Bedside Glucose 114 mg/dL (74-106)
[2024-01-03] MEDS: Heparin Injection (Vial) 5,000 UNIT/ML VIAL 5000 UNIT SC ×2 (08:21→22:41)
[2024-01-03 08:22] VITALS: BP 143/58; PULSE 61
[2024-01-03] MEDS: Vitamin B Comp W-C Capsule 1 CAP PO ×2 (08:22→16:21)
[2024-01-03] MEDS: Metoprolol(XL)Succ 50 MG Tablet PO (08:22)
[2024-01-03] MEDS: Insulin Lispro 100 UNIT/ML INSULN.PEN 8 UNIT SC (08:22)
[2024-01-03] MEDS: Lisinopril 20 MG Tablet PO ×2 (08:22→22:45)
[2024-01-03] MEDS: Menthol/Lanolin/Calamine/Znox 113 GM Tube 1 APPLIC TOPICAL ×2 (08:23→23:01)
[2024-01-03] MEDS: Finasteride 5 MG Tablet PO (08:23)
[2024-01-03] MEDS: Tamsulosin HCl 0.4 MG Capsule PO ×2 (08:23→16:21)
[2024-01-03] MEDS: Gabapentin 100 MG Capsule PO ×2 (08:29→16:21)
--- NOTE | 2024-01-03 09:57 | PCM.PROGNOTE ---
Subjective Subjective Alec was seen on team rounds today. No family was in attendance. Afebrile VSS - Maintaining appropriate oxygen saturation on RA Oral intake - FOOD good FLUIDS good The blood sugar record was reviewed. The blood sugar at supper yesterday was once again low at 79. He was 140 at at bedtime and 114 this morning. Discussed with nursing - no problems that need addressed Reviewed the THERAPY notes Medication list reviewed. Alec denies lightheadedness, chest pain, shortness of breath, cough, nausea/vomiting/abdominal pain, dysuria and calf tenderness. He states his pain is adequately controlled in the oxycodone was recently decreased to 5 mg 3 times daily. Denies pain in the left thigh today. Objective Data Objective Data Vital Signs: Vital Signs Temp Pulse Resp BP Pulse Ox O2 Del Method O2 Flow Rate 97.4 F L 61 16 143/58 H 94 Room Air 2 01/03/24 05:43 01/03/24 08:22 01/03/24 05:43 01/03/24 08:22 01/03/24 05:43 01/03/24 05:43 12/24/23 21:27 Oxygen Flow Rate (L/min) 2 Oxygen Delivery Method Room Air Weight: 175 lb 4.28 oz Body Mass Index (BMI) 27.4 Intake & Output: Intake and Output for Last 24 Hours 01/01/24 01/02/24 01/03/24 23:59 23:59 23:59 Intake Total 1480 / 1730 2720 / 2720 360 / 360 Output Total 1250 / 1750 4250 / 4250 1300 / 1300 Balance 230 / -20 -1530 / -1530 -940 / -940 Lab / Micro Data 12/27/23 09:27 12/28/23 05:10 Labs: Laboratory Results - last 24 hr 01/02/24 11:36: POC Glucose 180 H 01/02/24 16:14: POC Glucose 79 01/02/24 21:45: POC Glucose 140 H 01/03/24 06:39: POC Glucose 114 H Micro: Microbiology 12/26/23 01:30 Urine Catheter - Catheter Urine Culture - Final Pseudomonas aeruginosa Physical Exam Const alert, oriented x3 and no apparent distress Orientation / Consciousness: Negative for confused Resp normal respiratory effort, normal air movement and clear to auscultation bilaterally Cardio regular rate, regular rhythm and no gallops Cardio Narrative: No ectopy GI normal to inspection, nondistended, normoactive bowel sounds, soft to palpation and non-tender Extremity no calf tenderness Skin Rashes: no rashes Assessment & Plan Assessment/Plan (1) Debility: (2) Injury due to fall: QUALIFIERS: Encounter type: subsequent encounter Qualified Code(s): W19.XXXD - Unspecified fall, subsequent encounter (3) Intertrochanteric fracture of left hip: QUALIFIERS: Encounter type: subsequent encounter Fracture type: closed Fracture alignment: nondisplaced Fracture healing: with routine healing Qualified Code(s): S72.145D - Nondisplaced intertrochanteric fracture of left femur, subsequent encounter for closed fracture with routine healing (4) History of open reduction and internal fixation (ORIF) procedure: (5) Acute blood loss anemia: (6) Diabetes type 2, controlled: QUALIFIERS: Diabetes mellitus custodial insulin use: with 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 Continue therapy 2. Decrease the lunchtime insulin to 6 units and continue 8 units at breakfast and 10 units at supper. 3. CBC and BMP in the a.m. 4. Continue 5 mg of oxycodone 3 times daily through the weekend and then transition to as needed. 5. May no longer need gabapentin. Will likely try to discontinue early next week. I suspect the radicular pain was due to positioning at the time of surgery. Charges/Coding Visit Charges Inpatient E&M: 22788 Subs Hosp L2
[2024-01-03] MEDS: Insulin Lispro 100 UNIT/ML INSULN.PEN 6 UNIT SC (11:57)
[2024-01-03 12:00] VITALS: BP 134/62; PULSE 64
[2024-01-03 12:23] LABS: Bedside Glucose 134 mg/dL (74-106)
--- NOTE | 2024-01-03 12:42 | CASEMGMT ---
Social Work- Teams Meeting Patient's is currently in ED for medical care. IDT met with patient in therapy room to complete teams meeting. Discussed patient progress with therapy (PT/OT) and nursing. Patient is SBA/set up for bathing and dressing. Patient is SBA for transfers and toileting. Patient has progressed with OT. Will be working on standing tolerance. Patient is walking up steps contact guard/ SBA. Ambulating 100ft up ramp; contact guard/ SBA. Patient is ambulating 130ft. Patient to have tasha removed on Sunday. SW discussed Medicare coverage; patient has an anticipated discharge date 01/08. Patient's anticipated plan for discharge is home health care service. SW will continue to follow to support discharge planning. MAYA Gomez
[2024-01-03] MEDS: Insulin Lispro 100 UNIT/ML INSULN.PEN 10 UNIT SC (16:24)
[2024-01-03 17:25] LABS: Bedside Glucose 92 mg/dL (74-106)
[2024-01-03 18:00] VITALS: BP 136/66; PULSE 66
[2024-01-03 22:00] VITALS: BP 130/64; PULSE 63; PULSE 66; RESP 15; RESP 16; TEMP 36.7; O2SAT 98
[2024-01-03] MEDS: Senna/Docusate Sodium 1 Tablet 2 TABLET PO (22:44)
[2024-01-03] MEDS: Atorvastatin Calcium 20 MG Tablet PO (22:45)
[2024-01-03] MEDS: Polyethylene Glycol 3350 17 GM PACKET PO (22:45)
[2024-01-03] MEDS: Insulin Glargine-YFGN 100 UNIT/ML Pen 20 UNIT SC (22:56)
[2024-01-03 23:42] LABS: Bedside Glucose 211 mg/dL (74-106)
[2024-01-04] VITALS (7 sets, daily range): BP systolic 131–159; BP diastolic 59–80; PULSE 61–77; RESP 16; TEMP 36.3–36.8; O2SAT 96–97
[2024-01-04 05:44] LABS: Hematocrit 35.5 % (40-54); Hemoglobin 11.6 g/dL (13.0-16.5); Mean Corp Hgb Conc 32.7 g/dL (32-36); Mean Corpuscular Hgb 30.2 pg (27.0-32.0); Mean Corpuscular Volume 92.4 fL (80-94); Mean Platelet Vol. 11.9 fl (6.2-12.0); Platelet Count 384 K/mm3 (150-450); RBC Distribution Width CV 15.1 % (11.6-14.6); RBC Distribution Width SD 50.3 fl (35.1-43.9); Red Blood Count 3.84 M/mm3 (4.6-6.2)
[2024-01-04 05:58] LABS: Anion Gap 4 (5-15); BUN 23 mg/dL (7-18); BUN/Creat Ratio 26.3 RATIO (10-20); Calcium,Total 9.3 mg/dL (8.5-10.1); Chloride 106 mmol/L (98-107); Creatinine, Serum 0.87 mg/dL (0.70-1.30); EST Glomerular Filtration Rate 92 mL/min (>60); Est Glom Filt Rate - Afr Amer 111 mL/min (>60); Estimated Creatinine Clearance 79.86 ml/min; Glucose 151 mg/dL (74-106); Potassium 4.4 mmol/L (3.5-5.1); Sodium Level 139 mmol/L (136-145)
[2024-01-04] MEDS: Dorzolamide 2% 10ml Bottle OPHTHALMIC ×2 (06:52→21:14)
[2024-01-04] MEDS: Timolol 0.5% 5ML OPTH.BTL OPHTHALMIC ×2 (06:54→21:13)
[2024-01-04] MEDS: oxyCODONE 5 MG Tablet PO ×3 (06:54→19:55)
[2024-01-04] MEDS: Latanoprost 0.005% 1 Bottle OPHTHALMIC (06:54)
[2024-01-04] MEDS: Acetaminophen 500 MG Tablet 1000 MG PO ×3 (06:54→21:13)
[2024-01-04 07:20] LABS: Bedside Glucose 86 mg/dL (74-106)
[2024-01-04] MEDS: Vitamin B Comp W-C Capsule 1 CAP PO ×2 (08:45→17:02)
[2024-01-04] MEDS: Insulin Lispro 100 UNIT/ML INSULN.PEN 8 UNIT SC (08:46)
[2024-01-04] MEDS: Gabapentin 100 MG Capsule PO (08:47)
[2024-01-04] MEDS: Tamsulosin HCl 0.4 MG Capsule PO ×2 (08:47→17:02)
[2024-01-04] MEDS: Heparin Injection (Vial) 5,000 UNIT/ML VIAL 5000 UNIT SC ×2 (08:48→21:12)
[2024-01-04] MEDS: Lisinopril 20 MG Tablet PO ×2 (08:48→21:13)
[2024-01-04] MEDS: Finasteride 5 MG Tablet PO (08:49)
[2024-01-04] MEDS: Metoprolol(XL)Succ 50 MG Tablet PO (08:51)
[2024-01-04] MEDS: Insulin Lispro 100 UNIT/ML INSULN.PEN 6 UNIT SC (11:57)
[2024-01-04] MEDS: Menthol/Lanolin/Calamine/Znox 113 GM Tube 1 APPLIC TOPICAL ×2 (11:58→21:11)
[2024-01-04 12:02] LABS: Bedside Glucose 157 mg/dL (74-106)
--- NOTE | 2024-01-04 14:22 | PCM.PROGNOTE ---
Subjective Subjective Afebrile VSS -diastolic blood pressure is always within goal. The systolic is more often than not above 130. The highest systolic recently was 143. He has no lightheadedness. Heart rate is within normal limits. Maintaining appropriate oxygen saturation on RA Oral intake - FOOD good FLUIDS good The blood sugar record was reviewed. No hypoglycemia yesterday and no blood sugar greater than 200. Discussed with nursing - no problems that need addressed Reviewed the THERAPY notes Medication list reviewed. Antihypertensives include lisinopril 20 mg twice daily and metoprolol 50 mg daily. Alec denies lightheadedness, cephalgia, chest pain, shortness of breath, cough, nausea/vomiting/abdominal pain, dysuria and calf tenderness. His pain is well-controlled. We discussed changing the oxycodone to 5 mg p.o. every 4 hours as needed pain but he prefers to stick with the 5 mg scheduled 3 times daily. He agrees to transition to as needed on this coming Sunday. He is currently also taking gabapentin 100 mg twice daily for radicular pain in his left leg. He denies radicular pain at this time and I suspect that the pain was due to positioning for ORIF of the left hip fracture. All lab drawn this morning was personally reviewed. White blood cell count is normal at 9. Hemoglobin is stable at 11.6 and platelets are within normal limits. He is normochromic normocytic. Sodium is 139 and the potassium is 4.4. BUN is 23, up from 12 1 12/28/2023. Creatinine is 0.87 which is within his baseline. Calcium is normal. Objective Data Objective Data Vital Signs: Vital Signs Temp Pulse Resp BP Pulse Ox O2 Del Method O2 Flow Rate 97.4 F L 65 16 136/59 H 97 Room Air 2 01/04/24 06:00 01/04/24 11:55 01/04/24 11:55 01/04/24 11:55 01/04/24 06:00 01/04/24 10:00 12/24/23 21:27 Oxygen Flow Rate (L/min) 2 Oxygen Delivery Method Room Air Weight: 175 lb 4.28 oz Body Mass Index (BMI) 27.4 Intake & Output: Intake and Output for Last 24 Hours 01/02/24 01/03/24 01/04/24 23:59 23:59 23:59 Intake Total 2720 / 2720 1560 / 1560 660 / 660 Output Total 4250 / 4250 2350 / 2350 850 / 850 Balance -1530 / -1530 -790 / -790 -190 / -190 Lab / Micro Data 01/04/24 05:00 01/04/24 05:00 Labs: Laboratory Results - last 24 hr 01/03/24 16:23: POC Glucose 92 01/03/24 22:53: POC Glucose 211 H 01/04/24 05:00: WBC 9.0, RBC 3.84 L, Hgb 11.6 L, Hct 35.5 L, MCV 92.4, MCH 30.2, MCHC 32.7, RDW Std Deviation 50.3 H, RDW Coeff of [place] 15.1 H, Plt Count 384, MPV 11.9, Sodium 139, Potassium 4.4, Chloride 106, Carbon Dioxide 29.0, Anion Gap 4 L, BUN 23 H, Creatinine 0.87, Estim Creat Clear Calc 79.86, Est GFR (MDRD) Af Amer 111, Est GFR (MDRD) Non-Af 92, BUN/Creatinine Ratio 26.3 H, Glucose 151 H, Calcium 9.3 01/04/24 07:02: POC Glucose 86 01/04/24 11:44: POC Glucose 157 H Micro: Microbiology 12/26/23 01:30 Urine Catheter - Catheter Urine Culture - Final Pseudomonas aeruginosa Assessment & Plan Assessment/Plan (1) Debility: (2) Injury due to fall: QUALIFIERS: Encounter type: subsequent encounter Qualified Code(s): W19.XXXD - Unspecified fall, subsequent encounter (3) Intertrochanteric fracture of left hip: QUALIFIERS: Encounter type: subsequent encounter Fracture type: closed Fracture alignment: nondisplaced Fracture healing: with routine healing Qualified Code(s): S72.145D - Nondisplaced intertrochanteric fracture of left femur, subsequent encounter for closed fracture with routine healing (4) History of open reduction and internal fixation (ORIF) procedure: (5) Acute blood loss anemia: (6) Diabetes type 2, controlled: QUALIFIERS: 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 Continue therapy 2. Increase metoprolol XL to 75 mg every morning. With his RF's for CAD and stroke would like to see the BP consistently < 130/80. 3. Change gabapentin to 100 mg p.o. twice daily as needed radicular pain in the left thigh 4. Planning discharge home on 01/09/2024. Will have home health care at discharge. Charges/Coding Visit Charges Inpatient E&M: 18018 Subs Hosp L1
--- NOTE | 2024-01-04 15:23 | CHAPLAIN ---
Type of Pastoral Visit ___ Initial Visit _x__ Follow-up Visit ___ On-call Visit ___ General Patient Visit ___ Spiritual Assessment ___ Family Conference ___ Bereavement ___ Rapid Response ___ Code Blue ___ Other (describe below) Pastoral Care Referral From _x__ Patient ___ Family ___ Nurse ___ Physician ___ Gas Pumping Station Operator ___ Architectural Draftsman ___ Other (describe below) Sacrament/Intervention _x__ Active listening ___ Anointing ___ Advent ___ Bereavement ___ Communion ___ Samantha exploration ___ ___ Life review _x__ Prayer ___ Reconciliation ___ Sacrament of Sick ___ Supportive presence ___ Wedding ___ Other (describe below) Pastoral Comments patient welcomes follow up visit and is sitting in his chair; pt does admit to some improvement taking place and shows what he can now do with his leg; pt acknowledges that improvements come slowly but that he is hopeful for more to come; pt talks about his life and thoughts for a brief time; pt welcomes prayer support
[2024-01-04] MEDS: Insulin Lispro 100 UNIT/ML INSULN.PEN 10 UNIT SC (17:02)
[2024-01-04 17:18] LABS: Bedside Glucose 188 mg/dL (74-106)
[2024-01-04] MEDS: Insulin Glargine-YFGN 100 UNIT/ML Pen 20 UNIT SC (21:12)
[2024-01-04] MEDS: Senna/Docusate Sodium 1 Tablet 2 TABLET PO (21:13)
[2024-01-04] MEDS: Atorvastatin Calcium 20 MG Tablet PO (21:13)
[2024-01-04] MEDS: Polyethylene Glycol 3350 17 GM PACKET PO (21:13)
[2024-01-04 21:48] LABS: Bedside Glucose 181 mg/dL (74-106)
[2024-01-05 06:00] VITALS: BP 149/54; PULSE 62; RESP 15; TEMP 36.6; O2SAT 95
[2024-01-05] MEDS: Dorzolamide 2% 10ml Bottle OPHTHALMIC ×2 (06:03→21:31)
[2024-01-05] MEDS: Latanoprost 0.005% 1 Bottle OPHTHALMIC (06:04)
[2024-01-05] MEDS: Timolol 0.5% 5ML OPTH.BTL OPHTHALMIC ×2 (06:05→21:31)
[2024-01-05] MEDS: Acetaminophen 500 MG Tablet 1000 MG PO ×3 (06:05→21:32)
[2024-01-05] MEDS: oxyCODONE 5 MG Tablet PO ×3 (06:07→19:56)
[2024-01-05 07:25] LABS: Bedside Glucose 73 mg/dL (74-106)
[2024-01-05] MEDS: Insulin Lispro 100 UNIT/ML INSULN.PEN 8 UNIT SC (08:44)
[2024-01-05] MEDS: Tamsulosin HCl 0.4 MG Capsule PO ×2 (08:45→16:33)
[2024-01-05] MEDS: Lisinopril 20 MG Tablet PO ×2 (08:45→21:32)
[2024-01-05] MEDS: Finasteride 5 MG Tablet PO (08:45)
[2024-01-05] MEDS: Heparin Injection (Vial) 5,000 UNIT/ML VIAL 5000 UNIT SC ×2 (08:45→21:28)
[2024-01-05] MEDS: Vitamin B Comp W-C Capsule 1 CAP PO ×2 (08:45→16:33)
[2024-01-05] MEDS: Senna/Docusate Sodium 1 Tablet 2 TABLET PO (08:45)
[2024-01-05] MEDS: Menthol/Lanolin/Calamine/Znox 113 GM Tube 1 APPLIC TOPICAL ×2 (08:49→21:27)
[2024-01-05 09:05] VITALS: BP 127/61; PULSE 65
[2024-01-05] MEDS: Metoprolol(XL)Succ 25 MG Tablet 75 MG PO (09:05)
[2024-01-05] MEDS: Insulin Lispro 100 UNIT/ML INSULN.PEN 6 UNIT SC (11:22)
[2024-01-05 11:25] LABS: Bedside Glucose 172 mg/dL (74-106)
[2024-01-05 12:00] VITALS: BP 127/61; PULSE 65
[2024-01-05] MEDS: Insulin Lispro 100 UNIT/ML INSULN.PEN 10 UNIT SC (16:49)
[2024-01-05 17:07] LABS: Bedside Glucose 199 mg/dL (74-106)
[2024-01-05 17:53] VITALS: BP 153/76; PULSE 84
[2024-01-05 21:24] VITALS: BP 144/68; PULSE 68; RESP 17; TEMP 37.2; O2SAT 95
[2024-01-05] MEDS: Insulin Glargine-YFGN 100 UNIT/ML Pen 20 UNIT SC (21:28)
[2024-01-05] MEDS: Atorvastatin Calcium 20 MG Tablet PO (21:30)
[2024-01-05 21:54] LABS: Bedside Glucose 187 mg/dL (74-106)
[2024-01-06 06:00] VITALS: BP 166/76; PULSE 62; RESP 17; TEMP 37; O2SAT 96
[2024-01-06] MEDS: Timolol 0.5% 5ML OPTH.BTL OPHTHALMIC ×2 (06:14→20:34)
[2024-01-06] MEDS: Dorzolamide 2% 10ml Bottle OPHTHALMIC ×2 (06:15→21:34)
[2024-01-06] MEDS: Latanoprost 0.005% 1 Bottle OPHTHALMIC (06:15)
[2024-01-06] MEDS: Acetaminophen 500 MG Tablet 1000 MG PO ×3 (06:16→21:35)
[2024-01-06] MEDS: oxyCODONE 5 MG Tablet PO ×3 (06:19→20:28)
[2024-01-06 06:40] LABS: Bedside Glucose 101 mg/dL (74-106)
[2024-01-06] MEDS: Heparin Injection (Vial) 5,000 UNIT/ML VIAL 5000 UNIT SC ×2 (08:09→20:31)
[2024-01-06] MEDS: Lisinopril 20 MG Tablet PO ×2 (08:09→21:35)
[2024-01-06] MEDS: Tamsulosin HCl 0.4 MG Capsule PO ×2 (08:10→17:20)
[2024-01-06] MEDS: Vitamin B Comp W-C Capsule 1 CAP PO ×2 (08:10→17:20)
[2024-01-06] MEDS: Finasteride 5 MG Tablet PO (08:10)
[2024-01-06] MEDS: Insulin Lispro 100 UNIT/ML INSULN.PEN 8 UNIT SC (08:11)
[2024-01-06 08:14] VITALS: PULSE 62
[2024-01-06] MEDS: Metoprolol(XL)Succ 25 MG Tablet 75 MG PO (08:14)
[2024-01-06 11:52] LABS: Bedside Glucose 156 mg/dL (74-106)
[2024-01-06] MEDS: Insulin Lispro 100 UNIT/ML INSULN.PEN 6 UNIT SC (11:53)
[2024-01-06 12:00] VITALS: BP 143/70; PULSE 60
[2024-01-06 16:26] LABS: Bedside Glucose 95 mg/dL (74-106)
[2024-01-06] MEDS: Insulin Lispro 100 UNIT/ML INSULN.PEN 10 UNIT SC (17:21)
[2024-01-06 18:00] VITALS: BP 130/53; PULSE 75
[2024-01-06] MEDS: Menthol/Lanolin/Calamine/Znox 113 GM Tube 1 APPLIC TOPICAL (20:30)
[2024-01-06] MEDS: Atorvastatin Calcium 20 MG Tablet PO (20:31)
[2024-01-06] MEDS: Polyethylene Glycol 3350 17 GM PACKET PO (20:33)
[2024-01-06 21:31] VITALS: BP 139/57; PULSE 64; RESP 16; TEMP 36.8; O2SAT 96
[2024-01-06] MEDS: Insulin Glargine-YFGN 100 UNIT/ML Pen 20 UNIT SC (21:35)
[2024-01-06 21:58] LABS: Bedside Glucose 201 mg/dL (74-106)
[2024-01-07] VITALS (7 sets, daily range): BP systolic 111–171; BP diastolic 58–75; PULSE 66–85; RESP 16–17; TEMP 36.6–36.7; O2SAT 95–97
[2024-01-07] MEDS: Timolol 0.5% 5ML OPTH.BTL OPHTHALMIC ×2 (05:24→21:05)
[2024-01-07] MEDS: Acetaminophen 500 MG Tablet 1000 MG PO ×3 (05:24→21:05)
[2024-01-07] MEDS: Dorzolamide 2% 10ml Bottle OPHTHALMIC ×2 (05:27→21:05)
[2024-01-07] MEDS: Latanoprost 0.005% 1 Bottle OPHTHALMIC (05:33)
[2024-01-07] MEDS: oxyCODONE 5 MG Tablet PO ×3 (06:14→20:50)
[2024-01-07 06:35] LABS: Bedside Glucose 170 mg/dL (74-106)
[2024-01-07] MEDS: Insulin Lispro 100 UNIT/ML INSULN.PEN 8 UNIT SC (07:41)
[2024-01-07] MEDS: Tamsulosin HCl 0.4 MG Capsule PO ×2 (07:41→17:14)
[2024-01-07] MEDS: Vitamin B Comp W-C Capsule 1 CAP PO ×2 (07:41→17:14)
--- NOTE | 2024-01-07 08:08 | NURSING ---
Patient transferred off floor with FOOD AND DRUG INSPECTOR to XRay.
--- NOTE | 2024-01-07 08:14 | RAD_ITS ---
STUDY: X-RAY - PELVIS AND LEFT HIP REASON FOR EXAM: Male, 68 years old. Post-op. TECHNIQUE: 3 views of the pelvis and left hip. COMPARISON: Pelvis and left hip radiographs dated 12/22/2023. FINDINGS: There is a non-specific bowel gas pattern. Normal visualized soft tissue structures. Normal bilateral iliac wings, sacroiliac joints and visualized sacrum. Normal bilateral superior and inferior pubic rami. Normal pubic symphysis. Normal bilateral ischial tuberosities. There is a new intramedullary nail in the left proximal femur with hip screw in place, fixating the previously seen intertrochanteric fracture. There is anatomic alignment. RAD/HIP, UNI W/ Pelvis 2-3 Views IMPRESSION: Intramedullary nail in the left proximal femur with hip screw in place, fixating the previously seen intertrochanteric fracture. Electronically Signed: Jean Marie Hazel MD at 8:19 EDT ,
--- NOTE | 2024-01-07 09:08 | PCM.PROGNOTE ---
Subjective Subjective Afebrile VSS - BP's overall look better but, the AM BP is always high. Today the BP was 171/75. Heart rate is within normal limits. Maintaining appropriate oxygen saturation on RA Oral intake - FOOD good FLUIDS good Discussed with nursing - no problems that need addressed Reviewed the THERAPY notes Medication list reviewed. Pain is well controlled. sleeping well at night. Good appetite. Denies CP, SOB, cough, lightheadedness, calf pain and dysuria. Objective Data Objective Data Vital Signs: Vital Signs Temp Pulse Resp BP Pulse Ox O2 Del Method O2 Flow Rate 97.9 F 69 17 171/75 H 97 Room Air 2 01/07/24 05:21 01/07/24 05:21 01/07/24 05:21 01/07/24 05:21 01/07/24 05:21 01/07/24 05:21 12/24/23 21:27 Oxygen Flow Rate (L/min) 2 Oxygen Delivery Method Room Air Weight: 175 lb 4.28 oz Body Mass Index (BMI) 27.4 Intake & Output: Intake and Output for Last 24 Hours 01/05/24 01/06/24 01/07/24 23:59 23:59 23:59 Intake Total 1810 / 1810 1810 / 1810 510 / 510 Output Total 2085 / 2085 1725 / 1725 200 / 200 Balance -275 / -275 85 / 85 310 / 310 Lab / Micro Data 01/04/24 05:00 01/04/24 05:00 Labs: Laboratory Results - last 24 hr 01/06/24 11:35: POC Glucose 156 H 01/06/24 16:08: POC Glucose 95 01/06/24 21:33: POC Glucose 201 H 01/07/24 06:16: POC Glucose 170 H Micro: Microbiology 12/26/23 01:30 Urine Catheter - Catheter Urine Culture - Final Pseudomonas aeruginosa Physical Exam Const alert, oriented x3 and no apparent distress Constitutional Narrative: sitting in the recliner at the bedside. General Appearance: cooperative HEENT moist oral mucous membranes Resp normal respiratory effort and clear to auscultation bilaterally Cardio regular rate and regular rhythm GI normal to inspection, nondistended, normoactive bowel sounds, soft to palpation and non-tender Extremity no calf tenderness General Extremity: Negative for edema Skin General Skin Exam: no breakdown Rashes: no rashes Wound Narrative: Incisions are healing with no dehiscence, no Dc and no iris-incisional erythema. Assessment & Plan Assessment/Plan (1) Debility: (2) Injury due to fall: QUALIFIERS: Encounter type: subsequent encounter Qualified Code(s): W19.XXXD - Unspecified fall, subsequent encounter (3) Intertrochanteric fracture of left hip: QUALIFIERS: Encounter type: subsequent encounter Fracture type: closed Fracture alignment: nondisplaced Fracture healing: with routine healing Qualified Code(s): S72.145D - Nondisplaced intertrochanteric fracture of left femur, subsequent encounter for closed fracture with routine healing (4) History of open reduction and internal fixation (ORIF) procedure: (5) Acute blood loss anemia: (6) Diabetes type 2, controlled: QUALIFIERS: Diabetes mellitus custodial insulin use: with custodial use Diabetes mellitus complication status: with ophthalmic complications Diabetes mellitus complication detail: with diabetic retinopathy Diabetic retinopathy severity: with unspecified retinopathy severity Diabetes mellitus macular edema: macular edema presence unspecified Laterality: bilateral Qualified Code(s): E11.319 - Type 2 diabetes mellitus with unspecified diabetic retinopathy without macular edema; 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 Continue therapy 2. Change the metoprolol from 75 mg daily to 50 mg twice daily for better control of the a.m. blood pressure. Continue Zestril 20 mg twice daily. Charges/Coding Visit Charges Inpatient E&M: 76408 [facility] Hosp L1
[2024-01-07] MEDS: Lisinopril 20 MG Tablet PO ×2 (10:01→21:05)
[2024-01-07] MEDS: Heparin Injection (Vial) 5,000 UNIT/ML VIAL 5000 UNIT SC ×2 (10:04→21:06)
[2024-01-07] MEDS: Finasteride 5 MG Tablet PO (10:04)
[2024-01-07] MEDS: Metoprolol(XL)Succ 50 MG Tablet PO ×2 (10:11→21:04)
[2024-01-07 11:09] LABS: Bedside Glucose 207 mg/dL (74-106)
[2024-01-07] MEDS: Insulin Lispro 100 UNIT/ML INSULN.PEN 6 UNIT SC (12:23)
[2024-01-07 16:57] LABS: Bedside Glucose 205 mg/dL (74-106)
[2024-01-07] MEDS: Insulin Lispro 100 UNIT/ML INSULN.PEN 10 UNIT SC (17:15)
[2024-01-07] MEDS: Insulin Glargine-YFGN 100 UNIT/ML Pen 20 UNIT SC (21:03)
[2024-01-07] MEDS: Menthol/Lanolin/Calamine/Znox 113 GM Tube 1 APPLIC TOPICAL (21:03)
[2024-01-07] MEDS: Atorvastatin Calcium 20 MG Tablet PO (21:04)
[2024-01-07] MEDS: Polyethylene Glycol 3350 17 GM PACKET PO (21:07)
[2024-01-07 21:39] LABS: Bedside Glucose 303 mg/dL (74-106)
[2024-01-08] VITALS (7 sets, daily range): BP systolic 109–132; BP diastolic 53–64; PULSE 64–75; RESP 16; TEMP 36.6–36.7; O2SAT 96–97
[2024-01-08] MEDS: oxyCODONE 5 MG Tablet PO ×3 (06:24→22:03)
[2024-01-08] MEDS: Latanoprost 0.005% 1 Bottle OPHTHALMIC (06:24)
[2024-01-08] MEDS: Acetaminophen 500 MG Tablet 1000 MG PO ×3 (06:24→22:02)
[2024-01-08] MEDS: Dorzolamide 2% 10ml Bottle OPHTHALMIC ×2 (06:25→22:01)
[2024-01-08] MEDS: Timolol 0.5% 5ML OPTH.BTL OPHTHALMIC ×2 (06:25→21:54)
[2024-01-08 07:37] LABS: Bedside Glucose 116 mg/dL (74-106)
[2024-01-08] MEDS: Heparin Injection (Vial) 5,000 UNIT/ML VIAL 5000 UNIT SC ×2 (07:59→22:00)
[2024-01-08] MEDS: Lisinopril 20 MG Tablet PO ×2 (07:59→21:55)
[2024-01-08] MEDS: Finasteride 5 MG Tablet PO (07:59)
[2024-01-08] MEDS: Insulin Lispro 100 UNIT/ML INSULN.PEN 8 UNIT SC (08:00)
[2024-01-08] MEDS: Metoprolol(XL)Succ 50 MG Tablet PO ×2 (08:00→21:59)
[2024-01-08] MEDS: Vitamin B Comp W-C Capsule 1 CAP PO ×2 (08:00→16:53)
[2024-01-08] MEDS: Tamsulosin HCl 0.4 MG Capsule PO ×2 (08:00→16:53)
[2024-01-08] MEDS: Menthol/Lanolin/Calamine/Znox 113 GM Tube 1 APPLIC TOPICAL ×2 (08:00→22:14)
--- NOTE | 2024-01-08 11:02 | CASEMGMT ---
Addendum entered by Ivonne Goldsmith 01/08/24 11:28: [facility] is able to accept pt for PT/OT services with start of care on 01/09. Pt updated. CHANELLE Jacome Original Note: Social Work SW met with pt to discuss discharge plan. Discharge is set for tomorrow 01/09/24. Therapy is recommending home health PT/OT. A list of home health providers including quality and resource use data and consistent with the patient?s preferred geographic region, medical needs, and insurance network were provided from the [employer] Guide. Pt reviewed list and preferred provider is [facility]. Referral made to Kaylyn at [facility]. SW will await determination of acceptance. Pt states he has a walker and is inquiring about a walker tray. SW educated pt that insurance does not cover this and provided information on where it can be purchased. Pt will be returning home with his who is able to provide transportation home. Pt with no other dc concerns at this time. DC Date: 01/09/24 DC Disposition: Home with and home health PT/OT CHANELLE Jacome
[2024-01-08 11:56] LABS: Bedside Glucose 76 mg/dL (74-106)
--- NOTE | 2024-01-08 12:07 | DCINST_ITS ---
Discharge Instructions Diet Discharge Diet: - (1800 calorie, carbohydrate consistent, low fat, low salt diet. ) Activity Discharge Activity: May Not Drive, May Shower and Use Walker Weight Bearing Status: Full weight bearing Keep extremity elevated above heart level: Legs Dressing / Incision Call your doctor if your incision/area has: Continuous Slow Oozing, Sudden Increased Bleeding, Increased Pain/ Swelling, Increased Redness, Foul Smelling Discharge and Swelling at the incision site Call your doctor if you observe: Fever of 101 or Higher, Inability to urinate, Shortness of breath, Dizziness, Fainting spells, Swelling in the ankles, Chest pain, Increased palpitations (irregular heartbeat), Calf discomfort and Uncontrolled pain Cleanse incision/area with: Soap & Water Additional Dressing/Incision Instructions:: No dressing is necessary unless your clothing is irritating the incision and then you may use a dry dressing to cover. Follow Up Care Please Follow Up With: Renetta Yanes MD When: You will also need to follow up with Dr. Douglas uGan from Orthopedic surgery. Test Results: Test results from this visit will be discussed in further detail at your follow- up appointment, if applicable. Pending Tests Upon Discharge: none Discharge Plan Admission Admit Date/Time: 12/24/23 15:47 Primary Reason for Your Visit: Debility due to fall with L hip fx Attending Provider: Jessie Medina Primary Care Provider: Renetta Yanes Instructions Patient Instructions: Caring for Your Incision Additional Instructions / Restrictions: 1. Blood sugars can be fickle sometime! For the most part your blood sugars have been well controlled. Things will likely change when you get home since your diet will probably change some. 2. You were retaining urine when you arrived on rehab, despite being on Flomax twice a day for your prostate. We added a medication called Proscar which helps to shrink the prostate. You have tolerated this medication well and you are no longer retaining urine. 3. You are only taking 1 blood pressure medication when you arrived on rehab and that was enalapril, also noticed Vasotec, 20 mg twice a day. Your blood pressures were too high and we added an additional blood pressure medication called metoprolol, also called Lopressor. You will be taking this medication twice a day. your BP is now controlled. the goal BP for you is less than 130/80. 4. It has been a pleasure having you on rehab. You have worked hard and you always have a great attitude. If you or Jessie have any questions after you leave rehab please do not hesitate to call me. Have a great summer and no falls! OFFICE: [phone] CELL: [phone] Discharge Orders/Prescriptions Prescriptions: New finasteride 5 mg Tablet 5 mg PO DAILY Qty: 30 0RF metoprolol succinate 50 mg Tablet Extended Release 24 Hr 50 mg PO BID Qty: 60 0RF oxycodone 5 mg Tablet 5 mg PO Q4H PRN PRN (Reason: pain 4-10) 7 Days Qty: 21 0RF Novolin R FlexPen 100 unit/mL (3 mL) insulin pen See Rx Instructions .ROUTE .COMPLEX Qty: 15 0RF Rx Instructions: 8 units with breakfast, 6 units with lunch and 10 units with supper. Continued aspirin [Adult Low Dose Aspirin] 81 mg tablet,delayed release (DR/EC) 81 mg PO QDAY vitamin B complex capsule 1 cap PO BID latanoprost 1 DROP bottle 1 drp ophthalmic (eye) DAILY Patient Comments: 1 drop each eye simvastatin 40 MG tablet 40 mg PO DAILY tamsulosin 0.4 MG capsule 0.4 mg PO BID timolol 5 ML drops 1 drp ophthalmic (eye) BID Patient Comments: 1 drop each eye dorzolamide 1 DROP bottle See Rx Instructions ophthalmic (eye) BID Patient Comments: 1 drop each eye Rx Instructions: into the eye(s) twice a day; enalapril maleate 20 MG tablet 20 mg PO BID Patient Comments: Changed acetaminophen 500 mg Tablet 1,000 mg PO Q8 PRN (Reason: pain) Qty: 1 0RF insulin glargine [Basaglar KwikPen U-100 Insulin] 100 unit/mL (3 mL) insulin pen 20 unit subcut QPM Qty: 15 0RF Discontinued aspirin 81 mg Tablet,Chewable 81 mg PO BIDCM 30 Days Qty: 0 0RF insulin lispro [Humalog KwikPen Insulin] 100 unit/mL Insulin Pen 7 unit subcut TIDAC Qty: 0 0RF oxycodone 5 mg Tablet 5 mg PO Q4H PRN PRN (Reason: Pain Score 4-10) Qty: 0 0RF Referrals / Follow Up: Renetta Yanes MD [Primary Care Provider] - 01/18/24 2:00 pm Douglas Guan MD [Med Staff - Active Staff] - (Per office pt needs to contact them before appt can be made. pt aware.) Disposition Disposition (needs filled in before D/C Order can be placed): Home Health Service
[2024-01-08] MEDS: Insulin Lispro 100 UNIT/ML INSULN.PEN 6 UNIT SC (12:28)
--- NOTE | 2024-01-08 13:57 | PCM.DC.SUM ---
Providers Date of Admission: 12/24/23 Date of Discharge: 01/09/24 Primary Care Physician: Dr. Renetta Yanes MD Reason For Visit: LEFT HIP ORIF Diagnosis Discharge Diagnosis (1) Debility: Status: Acute Code(s): R53.81 - Other malaise (2) Injury due to fall: Status: Resolved Code(s): W19.XXXA - Unspecified fall, initial encounter Qualifiers: Encounter type: subsequent encounter Qualified Code(s): W19.XXXD - Unspecified fall, subsequent encounter (3) Intertrochanteric fracture of left hip: Status: Resolved Code(s): S72.142A - Displaced intertrochanteric fracture of left femur, initial encounter for closed fracture Qualifiers: Encounter type: subsequent encounter Fracture alignment: nondisplaced Fracture healing: with routine healing Fracture type: closed Qualified Code(s): S72.145D - Nondisplaced intertrochanteric fracture of left femur, subsequent encounter for closed fracture with routine healing (4) History of open reduction and internal fixation (ORIF) procedure: Status: Inactive Code(s): Z98.890 - Other specified postprocedural states Plan: Dr. Douglas Guan on 12/23/2023. (5) Acute blood loss anemia: Status: Acute Code(s): D62 - Acute posthemorrhagic anemia Plan: Hemoglobin is stable 11.6 at the time of discharge from rehab. 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 Proscar 5 mg daily was added to his drug regimen. He has no orthostatic hypotension and he denies lightheadedness at discharge. He is no longer retaining urine. (8) Radicular leg pain: Status: Resolved Code(s): M54.10 - Radiculopathy, site unspecified Plan: At presentation to rehab he c/o Left anterior thigh pain. It resolved with Gabapentin which we initially scheduled BID. He was eventually transitioned to BID PRN and he last took Gabapentin on 01/04/24. Plan 1. DC home with [facility] on 01/09/24. 2. He will follow up with Dr. Yanes and with Dr. Douglas Guan. Medications at Discharge Home Medications dorzolamide 2 % eye drops See Rx Instructions ophthalmic (eye) BID glaucoma 10/06/15 latanoprost 0.005 % eye drops 1 drp ophthalmic (eye) DAILY glaucoma 10/06/15 simvastatin 40 mg tablet 40 mg PO DAILY cholesterol 10/06/15 tamsulosin 0.4 mg capsule 0.4 mg PO BID prostate 10/06/15 timolol 0.5 % eye drops 1 drp ophthalmic (eye) BID glaucoma 10/06/15 aspirin 81 mg tablet,delayed release (Adult Low Dose Aspirin) 81 mg PO QDAY blood thin 07/03/17 vitamin B complex 1 cap PO BID supplement 07/03/17 enalapril maleate 20 mg tablet 20 mg PO BID hypertension 07/24/17 acetaminophen 500 mg tablet 1,000 mg (2 x 500 mg) PO Q8 PRN pain #1 TAB 01/08/24 finasteride 5 mg tablet 5 mg PO DAILY #30 tabs 01/08/24 insulin glargine 100 unit/mL (3 mL) subcutaneous pen (Basaglar KwikPen U-100 Insulin) 20 unit (0.2 mL) subcut QPM #15 mL 01/08/24 insulin regular human 100 unit/mL (3 mL) subcutaneous pen (Novolin R FlexPen) See Rx Instructions .Route .COMPLEX #15 mL 01/08/24 metoprolol succinate 50 mg tablet,extended release 24 hr 50 mg PO BID #60 tabs 01/08/24 oxycodone 5 mg tablet 5 mg PO Q4H PRN PRN pain 4-10 7 days #21 tabs 01/08/24 Hospital Course Operations - (Open reduction with internal fixation with an intramedullary nail on 12/23/[address] Douglas Guan.) Procedures None Summary of Care Provided Minutes Spent on Discharge: 30 Hospital Course: Alec CH HENRY, is a 68 M with a PMH of diabetes mellitus type 2, nephrolithiasis, GERD, asthma, dyslipidemia, glaucoma and BPH who presented to the emergency department at [facility] on 12/22/2023 after a mechanical fall at home complaining of left hip pain. Plain x-ray of the hip showed findings concerning for nondisplaced left intertrochanteric femur fracture. Dr. Douglas Guan was consulted and requested a CT scan for surgical planning. CT verified a left intertrochanteric femur fracture with mild impaction and comminution of the lesser trochanter. There was moderate bilateral hip osteoarthritis. He was admitted to the hospitalist service with consult to Dr. Guan. On 12/23/2023 he underwent left hip open reduction internal fixation with an intramedullary nail. He had no significant post op complications and he was transferred to the acute inpt rehab units at [facility] on 12/24/23 for 3 hours of therapy daily to restore function/independence at or near his level prior to the fall/hip FX. Alec was retaining urine at presentation to rehab despite being on Flomax 0.4 MG BID. Orthostatic VS were negative for orthostatic hypotension. Proscar 5 mg a day was added to the drug regimen and urine retention resolved. Orthostatics remained negative. He had no lightheadedness. Alec did well in rehab after we got his pain adequately controlled. We had to add Gabapentin for L anterior thigh radicular pain but, this was able to be discontinued prior to discharge. At the time of discharge he is modified independent for toilet transfer and toileting. He is SBA for tub/shower transfer, lower body dressing and bathing. He is supervision/set up for grooming and upper body dressing. His Jessie came in for family training prior to DC and she felt confident she would be able to provide any assistance her would need at home. He has ambulated up to 138' with a WW on various surfaces at [facility]. Alec was discharged home on 01/09/24 and will have HHC with [facility] home health. He will follow-up with his PCP, Dr. Kaila Lozoya, on 01/18/2024 at 2 PM[address] He will call Dr. Douglas Guan's office to schedule follow-up with Dr. Guan. Physical Exam Const alert, oriented x3 and no apparent distress Orientation / Consciousness: Negative for confused Resp normal respiratory effort, normal air movement and clear to auscultation bilaterally Cardio regular rate, regular rhythm and no gallops Cardio Narrative: No ectopy GI normal to inspection, nondistended, normoactive bowel sounds, soft to palpation and non-tender Extremity no calf tenderness Skin Rashes: no rashes Psych affect normal, denies homicidal ideation and denies suicidal ideation Appearance: appropriate Weight / BMI Weight Weight: 175 lb 4.28 oz Body Mass Index (BMI) 27.4 ABG / Lab / Microbiology Data 01/04/24 05:00 01/04/24 05:00 Laboratory: Laboratory Results - last 24 hr 01/07/24 16:37: POC Glucose 205 H 01/07/24 20:59: POC Glucose 303 H 01/08/24 06:42: POC Glucose 116 H 01/08/24 11:39: POC Glucose 76 Microbiology: Microbiology 12/26/23 01:30 Urine Catheter - Catheter Urine Culture - Final Pseudomonas aeruginosa Radiography Diagnostic Testing: Radiology Impression Hip/Pelvis X-Ray 01/07/24 08:14 IMPRESSION: Intramedullary nail in the left proximal femur with hip screw in place, fixating the previously seen intertrochanteric fracture. Electronically Signed: Jean Marie Hazel MD at 8:19 EDT Reading Location ID and State: [address] [place] [address] , Service support , D/C Instructions Discharge Diet: - (1800 calorie, carbohydrate consistent, low fat, low salt diet. ) Weight Bearing Status: Full weight bearing Keep extremity elevated above heart level: Legs Call your doctor if your incision/area has: Continuous Slow Oozing, Sudden Increased Bleeding, Increased Pain/ Swelling, Increased Redness, Foul Smelling Discharge and Swelling at the incision site Call your doctor if you observe: Fever of 101 or Higher, Inability to urinate, Shortness of breath, Dizziness, Fainting spells, Swelling in the ankles, Chest pain, Increased palpitations (irregular heartbeat), Calf discomfort and Uncontrolled pain Cleanse incision/area with: Soap & Water Additional Dressing/Incision Instructions: No dressing is necessary unless your clothing is irritating the incision and then you may use a dry dressing to cover. Pending Tests Upon Discharge: none Please Follow Up With: Renetta Yanes MD When: You will also need to follow up with Dr. Douglas Guan from Orthopedic surgery. Meaningful Use Info Meaningful Use Meaningful Use Diagnoses (Choose all that apply): None applicable Ischemic Stroke Statin Dosing Therapy Reference: STATIN DOSE THERAPY REFERENCE: * Patients > 75 years receive moderate or high dose statin therapy. * Patients 75 years or YOUNGER should receive HIGH intensity statin dose unless contraindicated. You will be required to document reason for non-treatment if statin daily dose does not meet guidelines. HIGH DOSE STATIN THERAPY DAILY Atorvastatin > than or = to 40 mg Rosuvastatin > than or = to 20 mg Amlodipine + Atorvastatin > than or = to 2.5/40 mg Ezetimibe + Simvastatin 10/80 mg Simvastatin 80mg Discharge Plan Admission Admit Date/Time: 12/24/23 15:47 Primary Reason for Your Visit: Debility due to fall with L hip fx Attending Provider: Jessie Medina Primary Care Provider: Renetta Yanes Instructions Patient Instructions: Caring for Your Incision Additional Instructions / Restrictions: 1. Blood sugars can be fickle sometime! For the most part your blood sugars have been well controlled. Things will likely change when you get home since your diet will probably change some. 2. You were retaining urine when you arrived on rehab, despite being on Flomax twice a day for your prostate. We added a medication called Proscar which helps to shrink the prostate. You have tolerated this medication well and you are no longer retaining urine. 3. You are only taking 1 blood pressure medication when you arrived on rehab and that was enalapril, also noticed Vasotec, 20 mg twice a day. Your blood pressures were too high and we added an additional blood pressure medication called metoprolol, also called Lopressor. You will be taking this medication twice a day. your BP is now controlled. the goal BP for you is less than 130/80. 4. It has been a pleasure having you on rehab. You have worked hard and you always have a great attitude. If you or Jessie have any questions after you leave rehab please do not hesitate to call me. Have a great summer and no falls! OFFICE: [phone] CELL: [phone] Discharge Orders/Prescriptions Prescriptions: New finasteride 5 mg Tablet 5 mg PO DAILY Qty: 30 0RF metoprolol succinate 50 mg Tablet Extended Release 24 Hr 50 mg PO BID Qty: 60 0RF oxycodone 5 mg Tablet 5 mg PO Q4H PRN PRN (Reason: pain 4-10) 7 Days Qty: 21 0RF Novolin R FlexPen 100 unit/mL (3 mL) insulin pen See Rx Instructions .ROUTE .COMPLEX Qty: 15 0RF Rx Instructions: 8 units with breakfast, 6 units with lunch and 10 units with supper. Continued aspirin [Adult Low Dose Aspirin] 81 mg tablet,delayed release (DR/EC) 81 mg PO QDAY vitamin B complex capsule 1 cap PO BID latanoprost 1 DROP bottle 1 drp ophthalmic (eye) DAILY Patient Comments: 1 drop each eye simvastatin 40 MG tablet 40 mg PO DAILY tamsulosin 0.4 MG capsule 0.4 mg PO BID timolol 5 ML drops 1 drp ophthalmic (eye) BID Patient Comments: 1 drop each eye dorzolamide 1 DROP bottle See Rx Instructions ophthalmic (eye) BID Patient Comments: 1 drop each eye Rx Instructions: into the eye(s) twice a day; enalapril maleate 20 MG tablet 20 mg PO BID Patient Comments: Changed acetaminophen 500 mg Tablet 1,000 mg PO Q8 PRN (Reason: pain) Qty: 1 0RF insulin glargine [Basaglar KwikPen U-100 Insulin] 100 unit/mL (3 mL) insulin pen 20 unit subcut QPM Qty: 15 0RF Discontinued aspirin 81 mg Tablet,Chewable 81 mg PO BIDCM 30 Days Qty: 0 0RF insulin lispro [Humalog KwikPen Insulin] 100 unit/mL Insulin Pen 7 unit subcut TIDAC Qty: 0 0RF oxycodone 5 mg Tablet 5 mg PO Q4H PRN PRN (Reason: Pain Score 4-10) Qty: 0 0RF Referrals / Follow Up: Renetta Yanes MD [Primary Care Provider] - 01/18/24 2:00 pm Douglas Guan MD [Med Staff - Active Staff] - (Per office pt needs to contact them before appt can be made. pt aware.) Disposition Disposition (needs filled in before D/C Order can be placed): Home Health Service Charges/Coding Visit Charges Inpatient E&M: 03970 Disch Hosp
[2024-01-08] MEDS: Insulin Lispro 100 UNIT/ML INSULN.PEN 10 UNIT SC (16:53)
[2024-01-08 17:20] LABS: Bedside Glucose 89 mg/dL (74-106)
[2024-01-08] MEDS: Polyethylene Glycol 3350 17 GM PACKET PO (21:55)
[2024-01-08] MEDS: Atorvastatin Calcium 20 MG Tablet PO (21:55)
[2024-01-08] MEDS: Insulin Glargine-YFGN 100 UNIT/ML Pen 20 UNIT SC (22:01)
[2024-01-08 22:19] LABS: Bedside Glucose 96 mg/dL (74-106)
[2024-01-09 06:00] VITALS: BP 142/53; PULSE 61; RESP 15; TEMP 36.3; O2SAT 94; BMI 27.1
[2024-01-09] MEDS: Acetaminophen 500 MG Tablet 1000 MG PO (06:23)
[2024-01-09] MEDS: Latanoprost 0.005% 1 Bottle OPHTHALMIC (06:23)
[2024-01-09] MEDS: Dorzolamide 2% 10ml Bottle OPHTHALMIC (06:23)
[2024-01-09] MEDS: Timolol 0.5% 5ML OPTH.BTL OPHTHALMIC (06:24)
[2024-01-09 06:57] LABS: Bedside Glucose 130 mg/dL (74-106)
[2024-01-09 08:38] VITALS: BP 142/53; PULSE 61
[2024-01-09] MEDS: Metoprolol(XL)Succ 50 MG Tablet PO (08:38)
[2024-01-09] MEDS: Vitamin B Comp W-C Capsule 1 CAP PO (08:39)
[2024-01-09] MEDS: Menthol/Lanolin/Calamine/Znox 113 GM Tube 1 APPLIC TOPICAL (08:39)
[2024-01-09] MEDS: Lisinopril 20 MG Tablet PO (08:39)
[2024-01-09] MEDS: Finasteride 5 MG Tablet PO (08:39)
[2024-01-09] MEDS: Heparin Injection (Vial) 5,000 UNIT/ML VIAL 5000 UNIT SC (08:40)
[2024-01-09] MEDS: Tamsulosin HCl 0.4 MG Capsule PO (08:42)
[2024-01-09] MEDS: Insulin Lispro 100 UNIT/ML INSULN.PEN 8 UNIT SC (08:43)
[2024-01-09] MEDS: Insulin Lispro 100 UNIT/ML INSULN.PEN 6 UNIT SC (12:18)
[2024-01-09 12:21] LABS: Bedside Glucose 139 mg/dL (74-106)
[2024-01-09 12:29] VITALS: BP 142/53; PULSE 61; RESP 15; TEMP 36.3; O2SAT 94
--- NOTE | 2024-01-09 12:31 | NURSING ---
discharged home with . discharge instructions, medications and appointments reviewed with pt and . denies questions or concerns
--- NOTE | 2024-01-10 14:36 | CASEMGMT ---
SW spoke with physician. Home Health nursing home added to home health order for medication management. [facility] notified CHANELLE Jacome
== END 2024-01-09 12:36 | disposition home health service (06) | DRG 560 ==
PROVIDERS: Admitting Provider Internal Medicine; PCP Internal Medicine; Visit Provider Internal Medicine
DX: S72.145D Nondisplaced intertrochanteric fracture of left femur, subsequent encounter for closed fracture with routine healing (principal); D62 Acute posthemorrhagic anemia; E11.319 Type 2 diabetes mellitus with unspecified diabetic retinopathy without macular edema; Z79.4 Long term (current) use of insulin; E11.39 Type 2 diabetes mellitus with other diabetic ophthalmic complication; I10 Essential (primary) hypertension; J45.909 Unspecified asthma, uncomplicated; M54.10 Radiculopathy, site unspecified; E87.6 Hypokalemia; E83.39 Other disorders of phosphorus metabolism; M16.0 Bilateral primary osteoarthritis of hip; I25.10 Atherosclerotic heart disease of native coronary artery without angina pectoris; E78.5 Hyperlipidemia, unspecified; W19.XXXD Unspecified fall, subsequent encounter; K21.9 Gastro-esophageal reflux disease without esophagitis; N40.1 Benign prostatic hyperplasia with lower urinary tract symptoms; R33.8 Other retention of urine; H42 Glaucoma in diseases classified elsewhere; Z79.899 Other long term (current) drug therapy; Z79.82 Long term (current) use of aspirin
CPT/HCPCS: 36415; 73502; 80048; 80053; 81001; 82962; 83735; 84100; 85014; 85018; 85025; 85027; 87077; 87086; 87088; 87186; 97110; 97116; 97162; 97166; 97530; 97535; 97802; 97803

== ENCOUNTER 2024-02-29 14:00 | Outpatient (RCR) | payer MEDICARE, OTHER, SELFPAY ==
--- NOTE | 2024-02-01 15:54 | HP.PTEVAL_ITS ---
Patient's Visit Information Visit Information Visit Information: JING RICHARDS is a 68 year old M referred to Physical Therapy by Dr. Renetta Yanes MD with a diagnosis of CLOSED FRACTURE OF LEFT HIP REQUIRING OPERATIVE REPAIR ,MUSCLE WEAKNESS. Date of Evaluation: 02/01/24 Physical Therapist: Red Howard, PT, Cert MDT, OCS Visit Plan Frequency: 2x /Week Duration: 4 Weeks Plan: S/P IM NAILING 12/23/23 AMBULATES WITH CANE PT INTERVENTIONS AROM ,STRENGTHENING LEFT QUADS/HAMS/HIP ,GAIT TRAINING ,BALANCE TRAINING ,ENDURANCE PROGRAM AND FUNCTIONAL STRENGTHENING Subjective Subjective: This 68 y/o male presents to physical therapy with left hip IM nailing on 12/23/[address] at [facility] . Patient fell in garage and landed on left hip unable to get ,went to ER via ambulance . Patient had x-rays showed left hip intertrochanteric fracture. Patient went to Rehab on 4th floor and d/c to home with walker WBAT LE 01/08. Patient week with [facility] PT progressed to cane. Patient has min pain pain. Patient on oxycodone. Patient lives in 1 story home with raunch with 3 steps and ramp. Patient has tub/shower with grab bars. Patie is I with tub bath. I with dressing . Patient does cooking/cleaning. Patient has limitations with walking/standing extended with rest . Denies paresthesia/tingling . Patient not driving yet. Patient sleeping good. Patient a ffects QOL and function/housework tasks. 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 , Pain Left: Pain Intensity (Out of 10): 1 Pain Intensity Range: 10 Objective Objective: POSTURE: mild forward posture NEURO: denies paresthesia/tingling GAIT: reciprocal pattern with cane 2 point gait pattern decrease stance time antalgic gait ( ambulates short distances no device antalgic gait) BALANCE: fair+ AROM: supine knee flexion 110 degrees ,hip flexion 95 degrees ,hip abduction 10 degrees MMT: ( peak force) left hip flexion 13.7 ,hip abduction 0 , quads 13.2 ,hamstrings 22.1 STAIRS: one step time with rails Balance/Special Test Scores Lower Extremity Functional Score: 27 Goals Goal 1:: Patient to be I with HEP Goal Time Frame: 4-6 Weeks Goal 2:: Patient to ambulate with normal ricardo community distances. Goal Time Frame: 4-6 Weeks Goal 3:: Patient to improve peak force quads/hams/hip by 10-15# to improve function and gait . Goal Time Frame: 4-6 Weeks Goal 4:: Patient to improve LFES score by 5-10# to improve QOL and function. Goal Time Frame: 4-6 Weeks Goal 5:: Patient to improve AROM hip abduction /flexion and knee flexion by 5- 10 degrees to improve gait and function. Goal Time Frame: 4-6 Weeks Rehabilitation Potential Physical Therapy Diagnosis: This patient underwent s/p IM nailing on 12/23/23 with decrease ROM ,weakness ,decrease gait and balance thus benefit from skilled PT Rehabilitation Potential: Good Anticipated Interventions Patient/Client Instruction: Educate patient on: Condition and Plan of Care For the Purpose of:: To decrease pain, To increase ROM, To improve muscle performance and motor function, To improve ability to perform ADL's, To increase tolerance to activity/condition/position, To improve ability of physical actions for home/community/work/leisure, To improve gait and locomotor functions, To decrease soft tissue restriction, To increase flexibility/ROM, To improve endurance, To improve balance, To improve safety with gait and To improve tolerance to ADL's Therapeutic Exercise to Include: Strength training, Endurance training, Balance training, Gait and locomotor training and Active ROM Comment: QUADS/HAMS/HIP For the Purpose of:: To decrease pain, To increase ROM, To improve muscle performance and motor function, To improve ability to perform ADL's, To increase tolerance to activity/condition/position, To improve ability of physical actions for home/community/work/leisure, To improve gait and locomotor functions, To increase flexibility/ROM, To improve endurance, To improve balance, To improve safety with gait and To improve tolerance to ADL's Text: Thank you for the opportunity to evaluate your patient. For Medicare and Medicare HMO plans, please review the plan of care and approve it. It will need to be FAXED BACK to us at [phone] for Medicare purposes. For Medicare only, by signing this I certify the plan of care. Please let me know if there are questions or concerns regarding this plan of care. Physician Signature: Date:
--- NOTE | 2024-02-29 14:50 | HP.PTDCSUM_ITS ---
Discharge Summary D/C summary: It has been my pleasure to treat JING RICHARDS referred by Dr. Renetta Yanes MD, with the diagnosis of CLOSED FRACTURE OF LEFT HIP REQUIRING OPERATIVE REPAIR ,MUSCLE WEAKNESS for a total of 9 visit(s). Discharge Date: 02/29/24 Please see the following information for a summary of their discharge status. Subjective Subjective: Patient doing much better Pain Left: Pain Intensity (Out of 10): 0 Overall Improvement % Improvement: 95 Objective Objective/Function: POSTURE: mild forward posture NEURO: denies paresthesia/tingling GAIT: reciprocal pattern with cane 2 point gait pattern (don't use cane around house reciprocal pattern) BALANCE: good - AROM: supine knee flexion 110 degrees ,hip flexion 95 degrees ,hip abduction 10 degrees MMT: ( peak force) left hip flexion 31./7 ,hip abduction 22 , quads 37.6 ,hamstrings 36.1 STAIRS: one step time with rails Goals Goal 1:: Patient to be I with HEP Goal Progress: Goal Met Goal 2:: Patient to ambulate with normal ricardo community distances. Goal Progress: Goal Met Goal 3:: Patient to improve peak force quads/hams/hip by 10-15# to improve function and gait . Goal Progress: Goal Met Goal 4:: Patient to improve LFES score by 5-10# to improve QOL and function. Goal Progress: Goal Met Goal 5:: Patient to improve AROM hip abduction /flexion and knee flexion by 5- 10 degrees to improve gait and function. Goal Progress: Goal Met Plan Plan: D/C D/C Information Discharge Comments: HEP d/c sentence: If there are questions or concerns regarding this patient's physical therapy, please feel free to call me at [phone]. Thank you for the referral of this patient. Sincerely, Red Howard, PT, Cert MDT, OCS Balance/Gait/Functional tests Balance/Special Test Scores Lower Extremity Functional Score: 51 TUG Test Time Seconds: 13.12 Tug Test: <20 sec.=mostly independent 30 Second Chair Rise Test Seconds: 11 Improvement % Improvement: 95
== END 2024-02-29 19:00 | disposition home or self-care (01) ==
LOC: PT 14:00
PROVIDERS: PCP Internal Medicine; Referring Provider Internal Medicine; Visit Provider Internal Medicine
DX: S72.002D Fracture of unspecified part of neck of left femur, subsequent encounter for closed fracture with routine healing (principal); R26.89 Other abnormalities of gait and mobility; M62.81 Muscle weakness (generalized)
CPT/HCPCS: 97110; 97162; 97530

== ENCOUNTER 2025-03-26 03:12 | Emergency (ER) | payer MEDICARE, OTHER, SELFPAY ==
[2025-03-26 03:13] VITALS: BP 185/86; PULSE 90; RESP 18; TEMP 36.6; O2SAT 93; BMI 26.1
--- NOTE | 2025-03-26 03:29 | EDS_ITS ---
HPI History of Present Illness Chief Complaint: Complaint Informant: patient Pain Onset: Today Context: Gradual Onset Current Severity: Moderate Maximum Severity: Moderate Narrative Narrative: 69-year-old male history of BPH and diabetes on Flomax. A week ago at [facility] They urologists did a TURP procedure on him. He was The hospital overnight the next day when he tried to remove the catheter he was unable to urinate so they placed a catheter back in. He had a catheter removed yesterday was doing well and then last night had difficulty urinating again. To the point where he is only having dribbling. Denies any blood or dysuria. Denies any fever. Prior similar symptoms: Yes Recent Illness/Hospitalization: Yes [facility] Medical History Hip fracture, left HTN (hypertension) Nephrolithiasis Diabetic retinopathy BPH (benign prostatic hyperplasia) Glaucoma Diabetes type 2, controlled Bilateral cataracts GERD (gastroesophageal reflux disease) Asthma Home Medications ?Medication ?Instructions ?Recorded ?Last Taken ?Type dorzolamide 2 % eye drops See Rx Instructions ophthalm ic 10/06/15 Unknown History (eye) BID glaucoma latanoprost 0.005 % eye drops 1 drp ophthalmic (eye) D AILY 10/06/15 Unknown History glaucoma simvastatin 40 mg tablet 40 mg PO DAILY cholesterol 0 10/06/15 12/23/23 History tamsulosin 0.4 mg capsule 0.4 mg PO BID prostate 10/0512/24/23 History timolol 0.5 % eye drops 1 drp ophthalmic (eye) BID g laucoma 10/06/15 Unknown History aspirin 81 mg tablet,delayed 81 mg PO QDAY blood thin 07/03/17 Unknown History release (Adult Low Dose Aspirin) vitamin B complex 1 cap PO BID supplement 06/22 09/08 Unknown History enalapril maleate 20 mg tablet 20 mg PO BID hypertensi on 07/24/17 12/24/23 History acetaminophen 500 mg tablet 1,000 mg (2 x 500 mg) PO Q 8 PRN 01/08/24 Unknown Rx pain #1 TAB finasteride 5 mg tablet 5 mg PO DAILY #30 tabs 01/07 Unknown Rx metoprolol succinate 50 mg 50 mg PO BID #60 tabs 01/07 Unknown Rx tablet,extended release 24 hr NovoLOG U-100 Insulin aspart BID 03/26/25 Unknown Hist ory ciprofloxacin HCl 500 mg tablet 500 mg PO BID 7 days # 14 tabs 03/26/25 Unknown Rx (Cipro) insulin degludec 100 unit/mL (3 20 unit subcut QHS 11/14 Unknown History mL) subcutaneous pen (Tresiba FlexTouch U-100 insulin) semaglutide 2 mg/dose (8 mg/3 mL) 2 mg subcut QWEEK Unknown History subcutaneous pen injector (Ozempic) Allergy/AdvReac Type Severity Reaction Status Date / Time No Known Allergies Allergy Verified 03/26/25 03:13 Family History Father Asthma Kidney disease Cancer Brother Heart disease Asthma Sister Heart disease Surgical History History of open reduction and internal fixation (ORIF) procedure H/O skin graft H/O eye surgery Social History household members: spouse Smoking Status: Never smoker second hand exposure: No alcohol intake: never substance use type: does not use caffeine: No ROS ROS ED ROS Narrative Denies recent illness. Unable to urinate today. Constitutional Constitutional ED: Denies chills or fever(s) Eyes Eyes: Denies blurry vision ENT ENT ED: Denies ear pain Cardiovascular Cardiovascular: Denies chest pain Respiratory/Chest Respiratory/Chest: Denies cough or dyspnea Gastrointestinal Gastrointestinal: Denies abdominal pain Genitourinary Genitourinary ED: Denies dysuria or hematuria Musculoskeletal Musculoskeletal: Denies arthralgias or back pain Integumentary Denies abscess or rash Neurologic Neurologic: Denies headache(s) Psychiatric Psychiatric: Denies anxiety or depression Endocrine Endocrinology: Denies polydipsia Hematologic/Lymphatic Hematologic/Lymphatic: Denies easy bleeding, easy bruising or lymphadenopathy Allergic/Immunologic Allergic/Immunologic ED: Denies mouth swelling, tongue swelling or urticaria EXAM Physical Exam Narrative Exam Narrative: Well-appearing 69-year-old male. Vital signs stable afebrile. Does not look septic or toxic. H EENT exam pupils round react light. Moist membranes. Neck nontender. Lungs clear to auscultation bilaterally. Heart regular rhythm rate about 90 no murmur. Abdomen soft, nontender, nondistended normal bowel sounds without peritoneal signs. External exam circumcised male. Nurse already has a Mallory catheter in him. I believe it is a 16 Sami. He has dark urine. There is no gross blood or clots. Moving all 4 extremities. Nontender no edema. Neurologically he is awake and alert. Answering questions and following commands. Const Vital Signs: 03/26/25 03:13 Temperature 97.8 F Temperature Source Oral Pulse Rate 90 Respiratory Rate 18 Blood Pressure 185/86 H Blood Pressure Mean 119 Pulse Ox 93 Oxygen Delivery Method Room Air Positive well nourished and well developed; Negative for cachectic, contractures or unkempt General Appearance ED: well developed and NAD; Negative for unkempt, cachectic, contractures or pallor Nutritional Appearance: Negative for cachectic HEENT Reports moist mucous membranes normocephalic and atraumatic Eyes PERRL and EOMs intact bilaterally Neck no lymphadenopathy, supple and no JVD Resp normal respiratory effort and clear to auscultation bilaterally Cardio regular rate, regular rhythm, S1 normal heart sound, S2 normal heart sound and no murmurs GI non-tender, non-distended and no masses Auscultation: normoactive bowel sounds Palpation: soft; Negative for tender or guarding no CVA tenderness Back/Spine no CVA tenderness General Back: Negative for CVA tenderness Cervical Spine: Negative for cervical spine tenderness Thoracic Spine / Upper Back: Negative for thoracic spinal tenderness Lumbar Spine / Lower Back: Negative for lumbar spinal tenderness Extremity normal to inspection General Extremety ED: Negative for edema or pulses abnormal General Extremity: Negative for edema or pulses abnormal Neuro oriented x3, CN's II-XII intact bilaterally, moves all extremities and no focal motor deficits Sensorium / Orientation: alert, oriented to person, oriented to place and oriented to time Motor Exam: strength 5/5 throughout Psych mental status grossly normal Appearance: Negative for unkempt Thought Process: normal thought process Thought Content: normal thought content Skin General Skin Exam: Negative for jaundice or pallor Lesions: no lesions Rashes: no rashes MDM MDM MDM Narrative Medical decision making narrative: 69-year-old male with urinary retention post TURP procedure. Nurses already placed a Mallory catheter checking a UA. Catheter is flowing nicely. Repeat exam patient is doing well. The Mallory catheter is drained about 100 cc of cloudy urine that on UA looks like it is infected. A urine culture sent. He will be started on Cipro twice a day for a week. He will follow-up with his urologist he was instructed to call them later this morning. His last 2 urine cultures were basely sensitive to any antibiotic. We discussed his test results. Bladder scan was performed he had less than 100 cc of urine in his bladder. History & Record Review Discussion w/independent historian: Patient and Family Additional record(s) reviewed:: Prior inpatient record, Prior outpatient record, Prior ED visit and Prior labs Lab Data Attestation: I reviewed the patient's lab results. Lab results narrative: Urinalysis shows 250 occult blood. Positive nitrates. 25-50 red cells 50 white cells and 3+ bacteria given his recent procedure and is urinary retention this will be treated as a suspected UTI. Urine culture be sent. Urinalysis shows a blood sugar 326 he is a known diabetic. Labs: Laboratory Results - last 24 hr 03/26/25 03/26/25 03:33 03:36 Urine Color Brown Urine Clarity Turbid Urine pH 6.0 Ur Specific Apex 1.020 Urine Protein 500 H Urine Glucose (UA) 1000 H Urine Ketones 15 H Urine Occult Blood 250 H Urine Nitrite Positive H Urine Bilirubin 1 H Urine Urobilinogen 1 H Ur Leukocyte Esterase 500 H Urine RBC 25-50 SEEN Urine WBC 50-100 SEEN Ur Squamous Epith Cells 0 SEEN Urine Bacteria 3+ Urine Mucus 0 SEEN POC Glucose 326 H Discharge Plan Triage Chief Complaint: Complaint ED Provider: Nahid Montero Dx/Rx/DC Orders Clinical Impression: Acute urinary retention, History of transurethral resection of prostate, Acute UTI, History of diabetes mellitus Instructions: ED Urinary Retention, Male, ED Bladder Infection, Male (Adult) Prescriptions: New ciprofloxacin HCl [Cipro] 500 mg tablet 500 mg PO BID 7 Days Qty: 14 0RF No Action aspirin [Adult Low Dose Aspirin] 81 mg tablet,delayed release (DR/EC) 81 mg PO QDAY vitamin B complex capsule 1 cap PO BID latanoprost 1 DROP bottle 1 drp ophthalmic (eye) DAILY Patient Comments: 1 drop each eye simvastatin 40 MG tablet 40 mg PO DAILY tamsulosin 0.4 MG capsule 0.4 mg PO BID timolol 5 ML drops 1 drp ophthalmic (eye) BID Patient Comments: 1 drop each eye dorzolamide 1 DROP bottle See Rx Instructions ophthalmic (eye) BID Patient Comments: 1 drop each eye Rx Instructions: into the eye(s) twice a day; enalapril maleate 20 MG tablet 20 mg PO BID Patient Comments: Ozempic 2 mg/dose (8 mg/3 mL) pen injector 2 mg subcut QWEEK insulin degludec [Tresiba FlexTouch U-100] 100 unit/mL (3 mL) insulin pen 20 unit subcut QHS NovoLOG U-100 Insulin aspart BID Rx Instructions: SLIDING SCALE finasteride 5 mg Tablet 5 mg PO DAILY Qty: 30 0RF metoprolol succinate 50 mg Tablet Extended Release 24 Hr 50 mg PO BID Qty: 60 0RF acetaminophen 500 mg Tablet 1,000 mg PO Q8 PRN (Reason: pain) Qty: 1 0RF Primary Care Provider: Renetta Yanes Referrals: Jass Mckeon MD [Non-Staff] - As soon as possible Renetta Yanes MD [Primary Care Provider] - Activity Restrictions/Additional Instructions: Call and follow-up with your urologist later today. Get a appointment scheduled. Leave the catheter in place. If it comes out right now you will be able to urinate again. Plenty of fluids and rest. Take the antibiotic Cipro 1 pill twice a day for 1 week. Print Language: Chinese Disposition Disposition: Home, Self Care
[2025-03-26 03:39] LABS: Color, Urine Brown (Yellow); Glucose, Dipstick 1000 mg/dl (Normal); Ketone-Dipstick 15 mg/dl (Negative); Leukocyte Esterase-Dipstick 500 /ul (Negative); Nitrite-Dipstick Positive (Negative); Occult Blood-Urine 250 /ul (Negative); Protein-Dipstick 500 mg/dl (Negative); Specific Gravity, Urine 1.020 (1.002-1.030)
--- OUTSIDE RECORDS SUMMARY | 2025-03-26 03:56 | XMS RPT_ITS | CCD ---
Author Organization [facility] Care Team Providers Care Policy Writer Typist Name Role Phone Lennox RAILWAY TRACTION LINE WORKER, More Berry Unavailable Unavailable Lennox RAILWAY TRACTION LINE WORKER, More Berry Unavailable Unavailable Ruggeri RAILWAY TRACTION LINE WORKER, David F Unavailable Unavailabl e Chen BREAKING MACHINE OPERATOR, Mildred White Unavailable Son Zambrano MD Primary Care Provider [facility], Keti Unavailable Son Zambrano MD Primary Care Provider [facility], Keti Unavailable [facility], Keti Unavailable [facility], Joce Unavailable Son Zambrano MD Primary Care Provider [facility], Joce [facility] Unavailable [facility], Joce Unavailable Son Zambrano MD Primary Care Provider Son Zambrano Attending Unavailable Talampas, Son D Primary Care Unavailable Juanampines, Son D Referring Unavailable SemenBruce tellez Admitting Unavaila ble SemenBruce tellez Attending Unavaila ble Juanampines, Son D Primary Care Unavailable Talampas, Son D Primary Care Unavailable Glenn Burchintfernanda Consulting Unavailable Burch, Achintya Admitting Unavailable Andrew Francisco Attending Unavailable MIGUELITO MASON Consulting Unavailable Pan Carranza Consulting Unavailable Bruce Medina Admitting Unavaila ble SemenBruce tellez Attending Unavaila ble Talampines, Son D Primary Care Unavailable Sementi, Marcelina Consulting Unavaila ble Talampas, Son D Primary Care Unavailable Ila Burchya Attending Unavailable Marcin Achintya Consulting Unavailable Marcin Achintya Admitting Unavailable Pan Carranza Attending Unavailable MIGUELITO MASON Consulting Unavailable Pan Carranza Consulting Unavailable Andrew Francisco Attending Unavailable Andrew Francisco Consulting Unavailable Mary RP, Keti Unavailable MARCELLA EGE Referring Unavailable TALAMPAS, SON D Primary Care Unavailable MARCELLA GEE Referring Unavailable TALAMPAS, SON D Primary Care Unavailable Caruso GILL BOX FIXER.CAVALRY SCOUT, Jossy Unavailable Luca GILL BOX FIXER.YARD WORKER, Emilia Unavailable Luca GILL BOX FIXER.YARD WORKER, Emilia Unavailable Luca GILL BOX FIXER.YARD WORKER, Emilia Unavailable Luca GILL BOX FIXER.YARD WORKER, Emilia Unavailable Caruso GILL BOX FIXER.CAVALRY SCOUT, Jossy Unavailable Bruce Lauren RN Unavailable PRUDENCIO MCKEON Admitting Unavailable PRUDENCIO MCKEON Attending Unavailable MIKE PRUDENCIO Referring Unavailable TALAMPAS, SON D Primary Care Unavailable PRUDENCIO MCKEON Attending Unavailable TALAMPAS, SON D Primary Care Unavailable MIKE PRUDENCIO Referring Unavailable TALAMPAS, SON D Primary Care Unavailable MIKE PRUDENCIO Referring Unavailable TALAMPAS, SON D Primary Care Unavailable TALAMPAS, SON Primary Care Unavailable JUD ALBRIGHT Attending Unavailable TALAMPAS, SON Primary Care Unavailable CARUSOEMILIAI Attending Unavailable CARUSO, JOSSY Referring Unavailable TALAMPAS, SON Primary Care Unavailable TALAMPAS, SON Referring Unavailable TALAMPAS, SON Primary Care Unavailable TALAMPAS, SON Primary Care Unavailable CARUSO, JOSSY Referring Unavailable TALAMPAS, SON Primary Care Unavailable MARCELLA GEE Attending Unavailable TALAMPAS, SON Primary Care Unavailable TALAMPAS, SON Attending Unavailable TALAMPAS, SON Primary Care Unavailable TALAMPAS, SON Primary Care Unavailable TALAMPAS, SON Primary Care Unavailable TALAMPAS, SON Primary Care Unavailable CARUSO, JOSSY Attending Unavailable CARUSO, JOSSY Referring Unavailable TALAMPAS, SON Primary Care Unavailable MARCELLA GEE Referring Unavailable PRUDENCIO MCKEON (RES) Attending Unavailable SON ZAMBRANO Primary Care Unavailable SON ZAMBRANO Primary Care Unavailable Medications Current Medications Medication Drug Class(es) Dates Sig (Normalized) Sig (Original) [id number] actuat albuterol 0.09 mg/actuat metered dose inhaler (20 sources) beta2-Adrenergic Agonist Start: 11-17-2024 take 2 puff(s) by inhalation every four hours as needed for cough albuterol HFA (VENTOLIN HFA) 90 mcg/actuation inhaler Indications: Sinobronchitis Inhale 2 puffs as instructed every 4 hours as needed for wheezing/shortness of breath (cough). 18 g 3 11/17/2024 Active Start: 05-28-2020 take 2 puff(s) by in halation every four hours as needed for wheezing albuterol HFA (VENTOLIN HFA) 90 mcg/actuation inhaler Indications: Bronchospasm Inhale 2 Puffs as instructed every 4 hours as needed for Wheezing/Shortness of Breath. 18 g 3 05/28/2020 Active Start: 07-03-2017 take 1 puff(s) by in halation every four hours Albuterol Sulfate (Proair Hfa) 90 mcg/actuation HFA aerosol inhaler Active 2 PUFF INHALATION Q4H July 03, 2017 12:00am PROAIR HFA 108 ( 90 Base) MCG/ACT AERS Inhale 2 puffs as instructed every 4 hours as needed for wheezing / shortness of breath. ALBUTEROL SULFATE [id number] David Mirza LPN PROAIR HFA 108 ( 90 Base) MCG/ACT AERS Inhale 2 puffs as instructed every 4 hours as needed for wheezing / shortness of breath. ALBUTEROL SULFATE [id number] David Mirza LPN Comment on above: Inhale 2 Puffs as in structed every 4 hours as needed for Wheezing/Shortness of Breath. aspirin 81 mg delayed release oral tablet (20 sources) Nonsteroidal Anti-inflammatory Drug Start: 07-03-2017 Aspirin (Adult Low Dose Aspirin) 81 mg tablet,delayed release (DR/EC) Active 81 MG PO daily July 03, 2017 12:00am Start: 11-06-2005 take 1 tablet by abi th once daily ASPIRIN 81 MG TAB Take 81 mg by mouth once daily. 0 11/06/2005 Active ADULT ASPIRIN EC LOW STRENGTH 81 MG TBEC Take one tablet daily. ASPIRIN [id number] David Mirza RAILWAY TRACTION LINE WORKER ADULT ASPIRIN EC LOW STRENGTH 81 MG TBEC Take one tablet daily. ASPIRIN [id number] David Mirza RAILWAY TRACTION LINE WORKER Comment on above: Take one (1) tablet daily . B COMPLEX CAP (20 sources) Start: 10-02-2005 take 1 capsule by mouth once daily B COMPLEX CAP Take 1 capsule by mouth once daily. 0 10/02/2005 Active Start: 10-02-2005 B COMPLEX CAP take one tablet daily 0 10/02/2005 Active Comment on above: take one tablet zach y benzonatate 100 mg oral capsule (16 sources) Non-narcotic Antitussive Start: 11-18-19 take 1 capsule by mouth three times daily as needed benzonatate (TESSALON PERLE) 100 mg capsule Indications: Sinobronchitis Take 1-2 capsules by mouth three times a day as needed for cough. 60 capsule 1 11/17/2024 Active beta-carotene,A,-vit s C,E/mins (OCUVITE ORAL) (20 sources) take 1 tablet by mouth once daily beta-carotene,A,-vits C,E/mins (OCUVITE ORAL) Take 1 tablet by mouth once daily. Active take 1 tablet by mouth once zach y beta-carotene,A,-vits C,E/mins (OCUVITE ORAL) Take 1 tablet by mouth once daily. 0 Active Blood Sugar Diagnostic, Drum (ACCU-CHEK COMPACT TEST) Strp (20 sources) Start: 03-13-2013 Blood Sugar Diagnostic, Drum (ACCU-CHEK COMPACT TEST) Strp Testing 2-3 times daily 306 Strip 3 03/13/2013 Active Comment on above: Testing 2-3 times da russ Blood-Glucose Meter (Relion Prime Meter) mis (1 source) Start: 07-03-2017 Blood-Glucose Meter (Relion Prime Meter) mis Active 0 .ROUTE .MEDSUPPLY 1 July 03, 2017 12:00am As directed cholecalciferol 0.125 mg oral capsule (20 sources) Vitamin D Start: 01-11-2024 take 1 capsule by mouth once daily Cholecalciferol, Vitamin D3, 125 mcg (5,000 unit) cap Take 1 capsule by mouth once daily. 01/11/2024 Active chromium picolinate 0.1 mg / inulin 2000 mg chewable tablet (20 sources) Start: 01-11-2024 take 1 dose by mouth once daily inulin-chromium picolinate (FIBER SELECT GUMMIES) 2-100 gram-mcg chew Take 1 Dose by mouth once daily. 01/11/2024 Active dorzolamide 20 mg/ml ophthalmic solution (1 source) Carbonic Anhydrase Inhibitor Start: 10-06-2015 Dorzolamide Active BC DAILY October 05, 2015 11:00pm dorzolamide 20 mg/ml / timolol 5 mg/ml ophthalmic solution (20 sources) Carbonic Anhydrase Inhibitor, beta-Adrenergic David Start: 04-09-2006 COSOPT 2 %-0.5 % EYE DROPS Use in eyes. 0 04/09/2006 Active Start: 04-09-2006 COSOPT 2 %-0.5 % EYE DROPS twice daily both eyes 0 04/09/2006 Active COSOPT 22.3-6.8 MG/ML SOLN Twice daily in both eyes. DORZOLAMIDE HCL-TIMOLOL MAL [id number] David Mriza LPN Comment on above: twice daily both eye s Use in eyes. dorzolamide HCl/timolol maleat (DORZOLAMIDE-TIMOLOL OPHTHALMIC) (20 sources) take 1 drop(s) into the eye(s) twice daily dorzolamide HCl/timolol maleat (DORZOLAMIDE-TIMOLOL OPHTHALMIC) Use 1 Drop in both eyes two times a day. Active take 1 drop(s) into the eye(s) twice daily dorzolamide HCl/timolol maleat (DORZOLAMIDE-TIMOLOL OPHTHALMIC) Use 1 Drop in both eyes two times a day. 0 Active enalapril maleate 20 mg oral tablet (20 sources) Angiotensin Converting Enzyme Inhibitor Start: 07-24-2017 End: 10-22-2024 take 1 tablet by mouth twice daily enalapril (VASOTEC) 20 mg tablet Indications: Primary hypertension Take 1 tablet by mouth two times a day. 180 tablet 3 10/22/2024 Active Start: 10-06-2015 End: 07-03-2017 take 20 mg by mouth twice daily Enalapril Maleate Discontinued 20 MG PO TWICE A DAY October 05, 2015 11:00pm July 03, 2017 2:37pm Comment on above: Take 1 tablet by abi th twice daily. Take 1 tablet by abi th two times a day. flash glucose scanning reader (FREESTYLE LUIZA 2 READER) (20 sources) Start: 09-15-2023 flash glucose scanning reader (FREESTYLE LUIZA 2 READER) Use to check blood sugars once a day. 1 Each 09/15/2023 Active Start: 09-15-2023 flash glucose scanning reader (FREESTYLE LUIZA 2 READER) Use to check blood sugars once a day. 1 Each 0 09/15/2023 Active Comment on above: Use to check blood s ugars once a day. flash glucose sensor (FREESTYLE LUIZA 2 SENSOR) kit (20 sources) Start: 10-22-2024 flash glucose sensor (FREESTYLE LUIZA 2 SENSOR) kit Indications: Type 2 diabetes mellitus with microalbuminuria, with long-term current use of insulin ([facility]) Ust to check blood sugars once daily. Please apply free voucher for 1 sensor, pt to bring in 6 Each 3 10/22/2024 Active Start: 12-18-2023 End: 10-22-2024 flash glucose sensor (FREEST YLE LUIZA 2 SENSOR) kit Indications: Type 2 diabetes mellitus with microalbuminuria, with long-term current use of insulin ([facility]) Ust to check blood sugars once daily. Please apply free voucher for 1 sensor, pt to bring in 6 Each 3 12/18/2023 10/22/2024 Discontinued Start: 12-18-2023 flash glucose sensor (FREESTYLE LUIZA 2 SENSOR) kit Indications: Type 2 diabetes mellitus with microalbuminuria, with long-term current use of insulin ([facility]) Ust to check blood sugars once daily. Please apply free voucher for 1 sensor, pt to bring in 6 Each 3 12/18/2023 Active Start: 07-12-2023 End: 12-18-2023 flash glucose sensor (FREEST YLE LUIZA 2 SENSOR) kit Indications: Type 2 diabetes mellitus with microalbuminuria, with long-term current use of insulin ([facility]) Ust to check blood sugars once daily. Please apply free voucher for 1 sensor, pt to bring in 1 Each 1 07/12/2023 12/18/2023 Discontinued Start: 07-12-2023 flash glucose sensor (FREESTYLE LUIZA 2 SENSOR) kit Indications: Type 2 diabetes mellitus with microalbuminuria, with long-term current use of insulin ([facility]) Ust to check blood sugars once daily. Please apply free voucher for 1 sensor, pt to bring in 1 Each 1 07/12/2023 Active Start: 01-09-2023 End: 07-12-2023 flash glucose sensor (FREEST YLE LUIZA 2 SENSOR) kit Indications: Type 2 diabetes mellitus with microalbuminuria, with long-term current use of insulin ([facility]) Ust to check blood sugars once daily. Please apply free voucher for 1 sensor, pt to bring in 1 Each 0 01/09/2023 07/12/2023 Discontinued Start: 01-09-2023 flash glucose sensor (FREESTYLE LUIZA 2 SENSOR) kit Indications: Type 2 diabetes mellitus with microalbuminuria, with long-term current use of insulin ([facility]) Ust to check blood sugars once daily. Please apply free voucher for 1 sensor, pt to bring in 1 Each 0 01/09/2023 Active Start: 10-12-2021 End: 01-08-2023 flash glucose sensor (FREEST YLE LUIZA 2 SENSOR) kit Indications: Type 2 diabetes mellitus with microalbuminuria, with long-term current use of insulin ([facility]) Ust to check blood sugars once daily. Please apply free voucher for 1 sensor, pt to bring in 1 Each 0 10/12/2021 01/08/2023 Discontinued Start: 10-12-2021 flash glucose sensor (FREESTYLE LUIZA 2 SENSOR) kit Indications: Type 2 diabetes mellitus with microalbuminuria, with long-term current use of insulin ([facility]) Ust to check blood sugars once daily. Please apply free voucher for 1 sensor, pt to bring in 1 Each 0 10/12/2021 Active Comment on above: Ust to check blood s ugars once daily. Please apply free voucher for 1 sensor, pt to bring in gabapentin 300 mg oral capsule (20 sources) Anti-epileptic Agent Start: 01-15-20 End: 04-14-20 take 1 capsule by mouth twice daily gabapentin (NEURONTIN) 300 mg capsule Indications: Disseminated herpes zoster Take 1 capsule by mouth two times a day for 90 days. 60 capsule 2 01/15/2024 Active 0.1 ml glucagon 5 mg/ml auto-injector (20 sources) Antihypoglycemic Agent Start: 05-04-20 glucagon (GVOKE HYPOPEN 2-PACK) 0.5 mg/0.1 mL AutoInjector Use to treat severe hypoglycemic episode as recommend on product labeling. 0.2 mL 3 05/04/2022 Active Start: 04-27-2022 glucagon 3 mg/ actuation nasal spray (BAQSIMI) Use 1 [place] in the nose as needed for low blood sugar. May repeat after 15 minutes using a new device if there is no response. 1 Each 5 04/27/2022 Active Comment on above: Use 1 [place] in the n ose as needed for low blood sugar. May repeat after 15 minutes using a new device if there is no response. Use to treat severe hypoglycemic episode as recommend on product labeling. glucose 4000 mg chewable tablet (20 sources) Start: 10-18-19 glucose 4 gram chewable tablet Indications: Type 2 diabetes mellitus with microalbuminuria, with long-term current use of insulin (HCC) Take 4 tablets by mouth as needed. 30 tablet 2 10/17/2021 Active Comment on above: Take 4 tablets by [facility] as needed. homatropine methylbromide 0.3 mg/ml / HYDROcodone bitartrate 1 mg/ml oral solution (1 source) Opioid Agonist, Cholinergic Muscarinic Agonist Start: 07-24-19 take 1 mL by mouth every six hours as needed Hydrocodone-Homatro pine Active 5 ML PO EVERY 6 HOURS NEEDED 60 July 24, 2017 12:00am hydrocortisone 10 mg/ml / neomycin 3.5 mg/ml / polymyxin b [id number] unt/ml otic suspension (1 source) Aminoglycoside Antibacterial, Polymyxin-class Antibacterial, Corticosteroid Start: 02-21-20 End: 03-02-20 neomycin-polymyxin- hydrocortisone (CORTISPORIN) 3.5-10,000-1 mg/mL-unit/mL-% otic suspension Indications: chronic suppurative otitis media Use 3 Drops in the right ear three times daily for 10 days. 10 mL 0 02/20/2022 03/02/2022 Active Comment on above: Use 3 Drops in the r ight ear three times daily for 10 days. 3 ml insulin aspart, human 100 unt/ml pen injector (20 sources) Insulin Analog Start: 01-02-20 insulin aspart U-100 (NOVOLOG FLEXPEN U-100 INSULIN) 100 unit/mL (3 mL) Indications: Type 2 diabetes mellitus with microalbuminuria, with long-term current use of insulin (HCC) Inject 10 units before breakfast, 10 units before lunch, and 10 units before dinner as directed. Through [employer] Patient [employer]. 01/01/2025 Active Start: 10-02-2024 End: 01-01-2025 insulin aspart U-100 (NOVOLO G FLEXPEN U-100 INSULIN) 100 unit/mL (3 mL) Indications: Type 2 diabetes mellitus with microalbuminuria, with long-term current use of insulin (HCC) Inject 12 units before breakfast, 12 units before lunch, and 12 units before dinner as directed. Through [employer] Patient Assistance. 10/02/2024 01/01/2025 Discontinued (Adjust Sig - Block E-Cancel) Start: 05-17-2023 End: 10-02-2024 insulin aspart U-100 (NOVOLO G FLEXPEN U-100 INSULIN) 100 unit/mL (3 mL) Indications: Type 2 diabetes mellitus with microalbuminuria, with long-term current use of insulin (HCC) Inject 10 units before breakfast, 10 units before lunch, and 12 units before dinner as directed. Through [employer] Patient Assistance. 05/17/2023 10/02/2024 Discontinued (Adjust Sig - Block E-Cancel) Start: 10-26-2022 End: 05-17-2023 insulin aspart U-100 (NOVOLO G FLEXPEN U-100 INSULIN) 100 unit/mL (3 mL) Indications: Type 2 diabetes mellitus with microalbuminuria, with long-term current use of insulin (HCC) Inject 7 units before breakfast, 9 units before lunch, and 9 units before dinner as directed. Through [employer] Patient Assistance. 0 10/26/2022 05/17/2023 Discontinued (Adjust Sig - Block E-Cancel) Start: 09-14-2022 End: 10-26-2022 insulin aspart U-100 (NOVOLO G FLEXPEN U-100 INSULIN) 100 unit/mL (3 mL) Indications: Type 2 diabetes mellitus with microalbuminuria, with long-term current use of insulin (HCC) Inject 8 units three times daily before meals. Through [employer] Patient Assistance. 0 09/14/2022 10/26/2022 Discontinued (Adjust Sig - Block E-Cancel) Start: 04-27-2022 End: 09-14-2022 insulin aspart U-100 (NOVOLO G FLEXPEN U-100 INSULIN) 100 unit/mL (3 mL) Indications: Type 2 diabetes mellitus with microalbuminuria, with long-term current use of insulin (HCC) Inject 9 units before breakfast, 7 units before lunch, and 9 units before dinner. Through [employer] Patient Assistance. 0 04/27/2022 09/14/2022 Discontinued (Adjust Sig - Block E-Cancel) Start: 03-20-2022 End: 04-27-2022 inject 9 [IU] by subcutaneous injection three times daily before mealtime insulin aspart U-100 (NOVOLOG FLEXPEN U-100 INSULIN) 100 unit/mL (3 mL) Indications: Type 2 diabetes mellitus with microalbuminuria, with long-term current use of insulin (HCC) Inject 9 Units subcutaneously three times daily before meals. Through [employer] Patient Assistance. 0 03/20/2022 04/27/2022 Discontinued Start: 01-16-2022 End: 03-20-2022 insulin aspart U-100 (NOVOLO G FLEXPEN U-100 INSULIN) 100 unit/mL (3 mL) Indications: Type 2 diabetes mellitus with microalbuminuria, with long-term current use of insulin (HCC) Inject 11 Units subcutaneously three times daily before meals. Through [employer] Patient Assistance. 0 02/15/2022 03/20/2022 Discontinued (Adjust Sig - Block E-Cancel) Start: 12-05-2021 End: 01-16-2022 inject 10 [IU] by subcutaneous injection three times daily before mealtime insulin aspart U-100 (NOVOLOG FLEXPEN U-100 INSULIN) 100 unit/mL (3 mL) Indications: Type 2 diabetes mellitus with microalbuminuria, with long-term current use of insulin (HCC) Inject 10 Units subcutaneously three times daily before meals. Through [employer] Patient [facility] 0 12/05/2021 01/16/2022 Discontinued (Adjust Sig - Block E-Cancel) Start: 09-19-2021 End: 12-05-2021 insulin aspart U-100 (NOVOLO G FLEXPEN U-100 INSULIN) 100 unit/mL (3 mL) Indications: Type 2 diabetes mellitus with microalbuminuria, with long-term current use of insulin (HCC) Inject 11 Units subcutaneously three times daily before meals. Through [employer] Patient [facility] 0 09/19/2021 12/05/2021 Discontinued (Adjust Sig - Block E-Cancel) Start: 10-20-2020 End: 11-19-2020 inject 10 [IU] by subcutaneous injection three times daily before mealtime insulin aspart U-100 (NOVOLOG FLEXPEN U-100 INSULIN) 100 unit/mL (3 mL) Indications: Type 2 diabetes mellitus with microalbuminuria, with long-term current use of insulin (HCC) Inject 10 Units subcutaneously three times daily before meals. Patient Assistance Medication 10/20/2020 11/19/2020 Discontinued Comment on above: Inject 11 Units subc utaneously three times daily before meals. Through [employer] Patient Assistance Inject 10 Units subc utaneously three times daily before meals. Through [employer] Patient Assistance Inject 11 Units subc utaneously three times daily before meals. Plus sliding scale (1 unit for every 50 mg/dL above 150 mg/dL).Through [employer] Patient Assistance. Inject 11 Units subc utaneously three times daily before meals. Through [employer] Patient [employer]. Inject 9 Units subcu taneously three times daily before meals. Through [employer] Patient [employer]. Inject 9 units befor e breakfast, 7 units before lunch, and 9 units before dinner. Through [employer] Patient Assistance. Inject 8 units three times daily before meals. Through [employer] Patient Assistance. Inject 7 units befor e breakfast, 9 units before lunch, and 9 units before dinner as directed. Through [employer] Patient Assistance. Inject 10 units befo re breakfast, 10 units before lunch, and 12 units before dinner as directed. Through [employer] Patient [employer]. 3 ml insulin degludec 100 unt/ml pen injector (20 sources) Insulin Analog Start: 02-12-2025 insulin degludec (TRESIBA FLEXTOUCH U-100) 100 unit/mL (3 mL) injection pen Indications: Type 2 diabetes mellitus with microalbuminuria, with long-term current use of insulin (HCC) Inject 20 Units subcutaneously every morning. [employer] Patient Assistance Medication 02/12/2025 Active Start: 01-01-2025 End: 02-12-2025 insulin degludec (TRESIBA FL EXTOUCH U-100) 100 unit/mL (3 mL) injection pen Indications: Type 2 diabetes mellitus with microalbuminuria, with long-term current use of insulin (HCC) Inject 22 Units subcutaneously every morning. [employer] Patient Assistance Medication 01/01/2025 02/12/2025 Discontinued (Adjust Sig - Block E-Cancel) Start: 05-17-2023 End: 01-01-2025 insulin degludec (TRESIBA FL EXTOUCH U-100) 100 unit/mL (3 mL) injection pen Indications: Type 2 diabetes mellitus with microalbuminuria, with long-term current use of insulin (HCC) Inject 20 Units subcutaneously every morning. Patient Assistance Medication 05/17/2023 01/01/2025 Discontinued (Adjust Sig - Block E-Cancel) Start: 09-14-2022 End: 05-17-2023 insulin degludec (TRESIBA FL EXTOUCH U-100) 100 unit/mL (3 mL) injection pen Indications: Type 2 diabetes mellitus with microalbuminuria, with long-term current use of insulin (HCC) Inject 22 Units subcutaneously every morning. Patient Assistance Medication 0 09/14/2022 05/17/2023 Discontinued (Adjust Sig - Block E-Cancel) Start: 10-20-2020 End: 09-14-2022 insulin degludec (TRESIBA FL EXTOUCH U-100) 100 unit/mL (3 mL) injection pen Indications: Type 2 diabetes mellitus with microalbuminuria, with long-term current use of insulin (HCC) Inject 20 Units subcutaneously every morning. Patient Assistance Medication 10/20/2020 09/14/2022 Discontinued (Adjust Sig - Block E-Cancel) Comment on above: Inject 20 Units subc utaneously every morning. Patient Assistance Medication Inject 22 Units subc utaneously every morning. Patient Assistance Medication insulin isophane, human 100 unt/ml injectable suspension (2 sources) Start: 07-03-2017 Insulin Nph Isoph U-100 Human (Novolin N Nph U-100 Insulin) 100 unit/mL suspension Active 5 UNIT SC daily July 03, 2017 12:00am NOVOLIN N 100 UN IT/ML SUSP 15U INSULIN NPH HUMAN (ISOPHANE) [id number] Mildred Siddiqui NP meclizine hydrochloride 25 mg oral tablet (20 sources) Antiemetic Start: 07-03-2022 End: 12-31-2024 take 1 tablet by mouth every eight hours as needed meclizine (ANTIVERT) 25 mg tab Take 1 tablet by mouth three times a day as needed (dizziness). 30 tablet 1 12/31/2024 Active Comment on above: Take 12.5-25 mg by m outh three times daily as needed. Take 1 tablet by abi th three times daily as needed (dizziness). 24 hr metoprolol succinate 50 mg extended release oral tablet (20 sources) beta-Adrenergic David Start: 04-16-2024 take 1 tablet by mouth twice daily metoprolol succinate ER (TOPROL XL) 50 mg 24 hr tablet Indications: Primary hypertension Take 1 tablet by mouth two times a day. 60 tablet 5 04/16/2024 Active Start: 10-11-2020 End: 04-16-2024 take 1 tablet by mouth once daily metoprolol succinate ER (TOPROL XL) 25 mg 24 hr tablet Indications: Primary hypertension Take 1 tablet by mouth once daily. 90 tablet 3 10/22/2023 04/16/2024 Discontinued Comment on above: Take 1 tablet by abi th once daily. multivitamin capsule (1 source) Start: 07-03-2017 take 1 capsule by mouth once daily in the morning multivitamin capsule Active 1 CAP PO EVERY MORNING July 03, 2017 12:00am MULTIVITAMIN TAB (20 sources) Start: 10-02-2005 take 1 tablet by mouth once daily MULTIVITAMIN TAB Take 1 tablet by mouth once daily. 0 10/02/2005 Active Start: 10-02-2005 MULTIVITAMIN T AB Take one(1) tablet daily. 0 10/02/2005 Active Comment on above: Take one(1) tablet d aily. mupirocin 0.02 mg/mg topical ointment (1 source) RNA Synthetase Inhibitor Antibacterial Start: 09-15-2022 End: 09-25-2022 mupirocin (BACTROBAN) 2 % ointment Indications: Rash and nonspecific skin eruption Apply 1 application to affected area twice daily for 10 days. 15 g 1 09/15/2022 09/25/2022 Active Comment on above: Apply 1 application to affected area twice daily for 10 days. insulin isophane, human 70 unt/ml / insulin, regular, human 30 unt/ml injectable suspension (9 sources) Insulin Start: 07-03-2017 Insulin Nph And Regular Human (Humulin 70/30 U-100 Insulin) 100 unit/mL (70-30) suspension Active 35 UNIT SC daily July 03, 2017 12:00am Start: 07-26-2016 HUMULIN 70/30 (70-30) 100 UNIT/ML SUSP take 35 units subcutaneously once daily INSULIN NPH ISOPHANE & REGULAR [id number] Mildred Siddiqui NP Start: 07-26-2016 HUMULIN 70/30 (70-30) 100 UNIT/ML SUSP take 35 units subcutaneously once daily INSULIN NPH ISOPHANE & REGULAR [id number] Mildred Siddiqui NP Start: 10-06-2015 End: 07-03-2017 inject 37 [IU] by subcutaneous injection once daily Insulin Nph And Regular Human Discontinued 37 UNITS SQ DAILY October 05, 2015 11:00pm July 03, 2017 2:37pm HUMULIN 70/30 (7 0-30) 100 UNIT/ML SUSP take 37 units subcutaneously once daily INSULIN NPH ISOPHANE & REGULAR [id number] Mildred Siddiqui NP HUMULIN 70/30 (7 0-30) 100 UNIT/ML SUSP take 37 units subcutaneously once daily INSULIN NPH ISOPHANE & REGULAR [id number] Mildred Siddiqui NP ondansetron 4 mg disintegrating oral tablet (16 sources) Serotonin-3 Receptor Antagonist Start: 11-17-2024 take 1 tablet by mouth every six hours as needed for nausea and nausea ondansetron orally disintegrating (ZOFRAN ODT) 4 mg disintegrating tablet Indications: Nausea Take 1 tablet by mouth every 6 hours as needed for nausea/vomiting. 20 tablet 11/17/2024 Active polyethylene glycol 3350 42171 mg powder for oral solution (6 sources) Osmotic Laxative Start: 03-19-2025 End: 04-03-2025 polyethylene glycol 3350 (MIRALAX) 17 gram/dose powder Indications: Benign non-nodular prostatic hyperplasia with lower urinary tract symptoms Take 17 grams by mouth once daily for 14 days. Dissolve dose in 4 - 8 ounces of liquid and take as directed. 238 g 03/20/2025 04/03/2025 Active insulin, regular, human 100 unt/ml injectable solution (6 sources) Insulin Start: 07-03-2017 Insulin Regular Human (Novolin R Regular U-100 Insuln) 100 unit/mL solution Active 25 UNIT SC EVERY EVENING July 03, 2017 12:00am Start: 04-11-2017 NOVOLIN R 100 UNIT/ML SOLN 25 units sc at supper time daily INSULIN REGULAR HUMAN [id number] Mildred Siddiqui NP Start: 10-06-2015 End: 07-03-2017 inject 25 [IU] by subcutaneous injection once daily Insulin Regular Human Discontinued 25 UNITS SQ DAILY October 05, 2015 11:00pm July 03, 2017 2:37pm NOVOLIN R 100 UN IT/ML SOLN 22U INSULIN REGULAR HUMAN [id number] Mildred Siddiqui NP NOVOLIN R 100 UN IT/ML SOLN 22U INSULIN REGULAR HUMAN [id number] Mildred Siddiqui NP semaglutide (OZEMPIC) 1 mg/dose (4 mg/3 mL) pen (20 sources) Start: 02-06-2025 inject 1 mg by subcutaneous injection every week semaglutide (OZEMPIC) 1 mg/dose (4 mg/3 mL) pen Inject 1 mg subcutaneously one time a week. [employer] [facility]. Do not send to pharmacy - patient receives through patient assistance program. For medication order changes (med, dose, frequency) please route to [facility]. 9 mL 02/06/2025 Active Start: 10-20-2022 End: 02-06-2025 inject 1 mg by subcutaneous injection every week semaglutide (OZEMPIC) 1 mg/dose (4 mg/3 mL) pen Inject 1 mg subcutaneously one time a week. 10/20/2022 02/06/2025 Discontinued (Adjust Sig - Block E-Cancel) Start: 10-20-2022 inject 1 mg by subcu taneous injection every week semaglutide (OZEMPIC) 1 mg/dose (4 mg/3 mL) pen Inject 1 mg subcutaneously one time a week. 10/20/2022 Active Start: 10-20-2022 inject 1 mg by subcu taneous injection every week semaglutide (OZEMPIC) 1 mg/dose (4 mg/3 mL) pen Inject 1 mg subcutaneously one time a week. 0 10/20/2022 Active Comment on above: Inject 1 mg subcutan eously one time a week. simvastatin 40 mg oral tablet (20 sources) HMG-CoA Reductase Inhibitor Start: 022 End: 024 take 1 tablet by mouth once daily at bedtime simvastatin (ZOCOR) 40 mg tablet Indications: Pure hypercholesterolemia Take 1 tablet by mouth daily at bedtime. 90 tablet 3 10/22/2023 Active Start: 07-20-2020 End: 10-14-2021 take 1 tablet by mouth once daily at bedtime simvastatin (ZOCOR) 40 mg tablet Take 1 tablet by mouth daily at bedtime. 90 tablet 3 07/20/2020 10/14/2021 Discontinued Start: 10-06-2015 End: 03-21-2017 take 1 tablet by mouth once daily at bedtime simvastatin (ZOCOR) 40 mg tablet Take 1 tablet by mouth daily at bedtime. 90 tablet 3 10/16/2021 Active Comment on above: Take 1 tablet by abi th daily at bedtime. tadalafil 20 mg oral tablet (11 sources) Phosphodiesterase 5 Inhibitor Start: 025 take 1 tablet by mouth once daily as needed Tadalafil (CIALIS) 20 mg tablet Indications: Erectile dysfunction, unspecified erectile dysfunction type Take 1 tablet by mouth once daily as needed. Take 1-2 hours before sexual activity. 30 tablet 01/05/2025 Active tamsulosin hydrochloride 0.4 mg oral capsule (20 sources) alpha-Adrenergic David Start: 025 End: 026 take 1 capsule by mouth twice daily tamsulosin (FLOMAX) 0.4 mg Indications: Benign non-nodular prostatic hyperplasia with lower urinary tract symptoms Take 1 capsule by mouth two times a day. 180 capsule 3 11/03/2024 11/03/2025 Active Start: 09-16-2020 End: 11-03-2024 take 2 capsules by mouth once daily at bedtime tamsulosin (FLOMAX) 0.4 mg Indications: Benign non-nodular prostatic hyperplasia with lower urinary tract symptoms Take 2 capsules by mouth daily at bedtime. 180 capsule 3 10/22/2023 11/03/2024 Discontinued Start: 10-06-2015 take 0.4 mg by mouth once zach y Tamsulosin Active 0.4 MG PO DAILY October 05, 2015 11:00pm take 2 capsules by m outh once daily at bedtime FLOMAX 0.4 MG CAPS Take 2 capsules by mouth daily at bedtime. TAMSULOSIN HCL [id number] David Mirza LPN Comment on above: Take 2 capsules by m outh daily at bedtime. timolol 5 mg/ml ophthalmic solution (20 sources) beta-Adrenergic David Start: 10-06-2015 Timolol Active TWICE A DAY October 05, 2015 11:00pm End: 06-23-2024 take 1 drop(s) into the eye(s) twice daily timolol maleate (TIMOPTIC) 0.25 % ophthalmic solution Use 1 Drop in both eyes two times a day. 06/23/2024 Discontinued take 1 drop(s) into the eye(s) twice daily timolol maleate (TIMOPTIC) 0.25 % ophthalmic solution Use 1 Drop in both eyes twice daily. 0 Active BETIMOL 0.25 % S OLN 1 drop in both eyes TIMOLOL HEMIHYDRATE [id number] Mildred Siddiqui NP BETIMOL 0.25 % S OLN 1 drop in both eyes TIMOLOL HEMIHYDRATE [id number] Mildred Siddiqui NP Comment on above: Use 1 Drop in both e yes twice daily. Use 1 Drop in both e yes two times a day. Vitamin B Complex (1 source) Start: 07-03-2017 take 1 capsule by mouth once daily Vitamin B Complex Active 1 CAP PO daily July 03, 2017 12:00am Completed/Discontinued Medications Medication Drug Class(es) Dates Sig (Normalized) Sig (Original) B COMPLEX VITAMINS (3 sources) take 1 tablet by abi th once daily B COMPLEX CAPS One tablet by mouth daily B COMPLEX VITAMINS [id number] David Mirza LPN B COMPLEX VITAMINS (1 source) take 1 tablet by abi th once daily B COMPLEX CAPS One tablet by mouth daily B COMPLEX VITAMINS [id number] David Mirza LPN BLOOD GLUCOSE MONITORING SUPPL (9 sources) JANETH SEGURA Use as directed. BLOOD GLUCOSE MONITORING SUPPL [id number] Mildred Siddiqui NP End: 07-26-2016 ACCU-CHEK COMPACT PLUS CARE KIT Testin 2-3 times daily. BLOOD GLUCOSE MONITORING SUPPL [id number] Mildred Sididqui NP ACCU-CHEK COMPAC T PLUS CARE KIT Testin 2-3 times daily. 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 BLOOD GLUCOSE MONITORING SUPPL [id number] Mildred J Chen LEMONS BLOOD GLUCOSE MONITORING SUP PL (2 sources) ACCU-CHEK COMPAC T PLUS CARE KIT Testin 2-3 times daily. 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 BLOOD GLUCOSE MONITORING SUPPL [id number] Mildred Siddiqui NP brimonidine tartrate 1.5 mg/ml ophthalmic solution (1 source) alpha-Adrenergic Agonist End: 10-17-2021 take 1 drop(s) into the eye(s) three times daily brimonidine (ALPHAGAN P) 0.15 % ophthalmic solution 1 Drop three times daily. 10/17/2021 Discontinued (Discontinued by another Health Care Provider) calcium chloride 0.0014 meq/ml / potassium chloride 0.004 meq/ml / sodium chloride 0.103 meq/ml / sodium lactate 0.028 meq/ml injectable solution (1 source) Start: 12-07-2023 End: 12-07-2023 lactated ringers iv infusion 1 ml fentaNYL 0.05 mg/ml injection (1 source) Opioid Agonist Start: 12-07-2023 End: 12-07-2023 fentaNYL 50 mcg/mL 25-100 mcg injection (SUBLIMAZE) GLUCOSE BLOOD (3 sources) RELION PRIME ZOFIA T STRP Use as directed. GLUCOSE BLOOD [id number] Mildred Siddiqui NP GLUCOSE BLOOD (1 source) RELION PRIME ZOFIA T STRP Use as directed. GLUCOSE BLOOD [id number] Mildred Siddiqui NP insulin lispro 100 unt/ml injectable solution (7 sources) Insulin Analogue End: 03-21-2017 HUMALOG 100 UNIT/ML SOLN Take 23 units before supper. INSULIN LISPRO [id number] David Ignacioi [employer] WORKER End: 03-21-2017 HUMALOG 100 UNIT/ML SOLN Jose F e 23 units before supper. INSULIN LISPRO [id number] Mildred Siddiqui NP HUMALOG 100 UNIT /ML SOLN Take 23 units before supper. INSULIN LISPRO [id number] David Mirza CANDACE INSULIN SYRINGE-NEEDLE U-100 (3 sources) BD INSULIN SYR U LTRAFINE II 31G X 5/16 0.5 ML MISC Use as directed with insulin injections three times daily. INSULIN SYRINGE-NEEDLE U-100 [id number] David Mirza CANDACE LANCETS (6 sources) End: 07-26-2016 FREESTYLE LANCETS MISC Use a s directed. LANCETS [id number] Mildred Siddiqui BREAKING MACHINE OPERATOR FREESTYLE LANCET S MISC Use as directed. LANCETS [id number] Dvaid Mirza CANDACE latanoprost 0.05 mg/ml ophthalmic solution (20 sources) Prostaglandin Analog Start: 04-09-2006 End: 06-23-2024 take 1 drop(s) into the eye(s) once daily XALATAN 0.005 % EYE DROPS Use 1 Drop in both eyes once daily. 0 04/09/2006 06/23/2024 Discontinued Start: 04-09-2006 XALATAN 0.005 % EYE DROPS once daily both eyes 0 04/09/2006 Active take 1 drop(s) into the eye(s) once daily in the morning LATANOPROST, PF, OPHTHALMIC Use 1 Drop in both eyes every morning. Active take 1 drop(s) into the eye(s) once daily in the morning LATANOPROST, PF, OPHTHALMIC Use 1 Drop in both eyes every morning. 0 Active XALATAN 0.005 % SOLN Once daily in both eyes. LATANOPROST [id number] David Ignaciojoe MARIA Comment on above: once daily both eyes Use 1 Drop in both e yes once daily. 5 ml midazolam 1 mg/ml injection (1 source) Benzodiazepine Start: 2023 End: 2023 midazolam (PF) 1-5 mg injection (VERSED) MULTIPLE VITAMINS-MINERALS (3 sources) take 1 tablet by mouth once daily DAILY MULTIVITAMIN CAPS One tablet by mouth daily MULTIPLE VITAMINS-MINERALS [id number] David Ignaciojoe MARIA MULTIPLE VITAMINS-MINERALS (1 source) take 1 tablet by mouth once daily DAILY MULTIVITAMIN CAPS One tablet by mouth daily MULTIPLE VITAMINS-MINERALS [id number] David Ignaciojoe MARIA INSULIN NPH HUMAN (ISOPHANE) (2 sources) NOVOLIN N 100 UNIT/ML SUSP 15U INSULIN NPH HUMAN (ISOPHANE) [id number] Mildred Siddiqui NP phenazopyridine hydrochloride 200 mg oral tablet (6 sources) Start: 2024 End: 2024 take 1 tablet by mouth three times daily as needed phenazopyridine (PYRIDIUM) 200 mg tablet Indications: Benign non-nodular prostatic hyperplasia with lower urinary tract symptoms Take 1 tablet by mouth three times a day as needed for up to 5 days. 15 tablet 03/20/2025 03/25/2025 polyethylene glycol 3350 223111 mg / potassium chloride 2970 mg / sodium bicarbonate 6740 mg / sodium chloride 5860 mg / sodium sulfate 58704 mg powder for oral solution (1 source) Osmotic Laxative Start: 2023 End: 2023 peg 3350-Electrolytes (GOLYTELY) 236-22.74-6.74 -5.86 gram suspension Indications: Colon cancer screening Take 4,000 mL by mouth one time only for 1 dose. Refer to printed prep instructions from your provider. 4000 mL 0 11/12/2023 11/12/2023 1 mg dose 1.5 ml semaglutide 1.34 mg/ml pen injector (20 sources) Start: 2021 End: 2022 inject 1 mg by subcutaneous injection every week semaglutide (OZEMPIC) 1 mg/dose (2 mg/1.5 mL) pen injector Indications: Type 2 diabetes mellitus with microalbuminuria, with long-term current use of insulin (HCC) Inject 1 mg subcutaneously one time a week. Through [employer] [facility] 0 09/19/2021 09/14/2022 Discontinued Comment on above: Inject 1 mg subcutan eously one time a week. Through [employer] [facility] [employer] semaglutide (OZEMPIC) 2 mg/dose (8 mg/3 mL) pen injector (7 sources) Start: 2022 End: 2022 inject 2 mg by subcutaneous injection every week semaglutide (OZEMPIC) 2 mg/dose (8 mg/3 mL) pen injector Inject 2 mg subcutaneously one time a week. Usually gets through [facility] [facility] PAP. 3 mL 5 09/14/2022 10/20/2022 Discontinued (Adjust Sig - Block E-Cancel) Start: 09-14-2022 inject 2 mg by subcu taneous injection every week semaglutide (OZEMPIC) 2 mg/dose (8 mg/3 mL) pen injector Inject 2 mg subcutaneously one time a week. Usually gets through [employer] PAP. 3 mL 5 09/14/2022 Active Start: 07-27-2022 End: 09-14-2022 semaglutide (OZEMPIC) 2 mg/d ose (8 mg/3 mL) pen injector Inject 2 mg subcutaneously one time a week. Getting through PAP. Once receives first shipment in 2022, will switch from Ozempic 1mg to 2mg weekly. 0 07/27/2022 09/14/2022 Discontinued Start: 07-27-2022 semaglutide (O ZEMPIC) 2 mg/dose (8 mg/3 mL) pen injector Inject 2 mg subcutaneously one time a week. Getting through PAP. Once receives first shipment in 2022, will switch from Ozempic 1mg to 2mg weekly. 0 07/27/2022 Active Comment on above: Inject 2 mg subcutan eously one time a week. Getting through PAP. Once receives first shipment in 2022, will switch from Ozempic 1mg to 2mg weekly. Inject 2 mg subcutan eously one time a week. Usually gets through [employer] PAP. semaglutide (OZEMPIC) 2 mg/dose (8 mg/3 mL) pen injector (7 sources) Start: End: inject 2 mg by subcutaneous injection every week, then inject 1 mg by subcutaneous injection every week semaglutide (OZEMPIC) 2 mg/dose (8 mg/3 mL) pen injector Inject 2 mg subcutaneously one time a week. Gets from PAP. ON HOLD as of 10/20/22 due to possible error in shipment. Taking 1mg weekly now. 3 mL 5 10/20/2022 11/30/2022 Discontinued Start: 10-20-2022 inject 2 mg by subcu taneous injection every week, then inject 1 mg by subcutaneous injection every week semaglutide (OZEMPIC) 2 mg/dose (8 mg/3 mL) pen injector Inject 2 mg subcutaneously one time a week. Gets from PAP. ON HOLD as of 10/20/22 due to possible error in shipment. Taking 1mg weekly now. 3 mL 5 10/20/2022 Active Comment on above: Inject 2 mg subcutan eously one time a week. Gets from PAP. ON HOLD as of 10/20/22 due to possible error in shipment. Taking 1mg weekly now. Problems Active Problems Problem Classification Problem Date Documented Da te Episodic/Chronic Acute posthemorrhagic anemia (1 source) Acute posthemorrhagic anemia; 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: [Acute posthemorrhagic anemia] Onset: 4 Episodic Asthma (13 sources) Asthma; 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: [Unspecified asthma, uncomplicated] Onset: 5 07-26-2016 Chronic Conditions associated with dizziness or vertigo (14 sources) Peripheral vertigo; 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: [Other peripheral vertigo, unspecified ear] Onset: 5 Episodic Diabetes mellitus with complications (20 sources) Diabetes mellitus; 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: [Insulin dependent diabetes mellitus with complications] Onset: 6 Chronic Disorders of lipid metabolism (20 sources) Pure hypercholesterolemia; 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: [Pure hypercholesterolemia, unspecified] Onset: 6 10-02-2005 Chronic Diverticulosis and diverticulitis (20 sources) Diverticulum of large intestine without hemorrhage; 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: [Diverticulosis of large intestine without perforation or abscess without bleeding] Onset: 7 05-23-2017 Chronic E Codes: Fall (2 sources) Unspecified fall, subsequent encounter; 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: [Unspecified fall, initial encounter] Onset: 4 Episodic Esophageal disorders (13 sources) Gastroesophageal reflux disease; 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: [Gastro-esophageal reflux disease without esophagitis] Onset: 5 07-26-2016 Chronic Essential hypertension (20 sources) Benign essential hypertension; 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: [Essential (primary) hypertension] Onset: 7 07-25-2016 Chronic Fluid and electrolyte disorders (1 source) Hypokalemia; 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: [Hypokalemia] Onset: 4 Episodic Fracture of neck of femur (hip) (9 sources) Closed fracture of hip; 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: [Fracture of unspecified part of neck of left femur, subsequent encounter for closed fracture with routine healing] Onset: 4 01-15-2024 Episodic Gastrointestinal hemorrhage (20 sources) Hemorrhage of rectum and anus; 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: [Gastrointestinal hemorrhage] Onset: 7 07-25-2016 Episodic Glaucoma (20 sources) Glaucoma; 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: [Unspecified glaucoma] Onset: 7 07-25-2016 Chronic Hyperplasia of prostate (20 sources) Benign prostatic hypertrophy with outflow obstruction; 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: [Benign prostatic hyperplasia with lower urinary tract symptoms] Onset: 2 07-25-2016 Chronic Nutritional deficiencies (2 sources) Vitamin D deficiency; 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: [Vitamin D deficiency, unspecified] Onset: 5 10-22-2024 Chronic Other aftercare (1 source) Post-discharge follow-up; 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: [Encounter for follow-up examination after completed treatment for conditions other than malignant neoplasm] 01-15-2024 Episodic Other circulatory disease (1 source) Orthostatic hypotension; 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: [Orthostatic hypotension] 12-31-2024 Episodic Other circulatory disease (1 source) Orthostatic hypotension; 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: [Orthostatic hypotension] Onset: Episodic Other connective tissue disease (1 source) Muscle weakness; 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: [Muscle weakness (generalized)] 01-27-2024 Episodic Other connective tissue disease (1 source) Swelling of left foot; 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: [Other specified soft tissue disorders] 02-21-2024 Episodic Other ear and sense organ disorders (1 source) Chronic otitis externa; 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: [Other otitis externa, right ear] Chronic Other ear and sense organ disorders (2 sources) Impacted cerumen of bilateral ears; 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: [Impacted cerumen, bilateral] Episodic Other ear and sense organ disorders (1 source) Bilateral hearing loss; 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: [Impacted cerumen, bilateral] Episodic Other endocrine disorders (2 sources) Hypoglycemia; 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: [Hypoglycemia, unspecified] 04-22-2023 Chronic Other liver diseases (1 source) Alkaline phosphatase raised; 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: [Abnormal levels of other serum enzymes] 10-22-2024 Episodic Other male genital disorders (2 sources) Male erectile dysfunction, unspecified; 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: [Impotence of organic origin] Onset: 5 01-05-2025 Chronic Other nervous system disorders (20 sources) Carpal tunnel syndrome; 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: [Carpal tunnel syndrome, unspecified upper limb] Onset: 7 07-25-2016 Chronic Other nervous system disorders (1 source) Impairment of balance; 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: [Other abnormalities of gait and mobility] 01-27-2024 Episodic Other non-traumatic joint disorders (1 source) Pain in right knee; 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: [Pain in joint, lower leg] 10-23-2023 Episodic Other nutritional; endocrine; and metabolic disorders (7 sources) Overweight; 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: [Body mass index 25-29 - overweight] Onset: 7 10-25-2016 Chronic Other nutritional; endocrine; and metabolic disorders (1 source) Body mass index 25-29 - overweight; 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: [Body mass index (BMI) 28.0-28.9, adult] Onset: 7 07-26-2016 Chronic Other nutritional; endocrine; and metabolic disorders (1 source) Other disorders of phosphorus metabolism; 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: [Other disorders of phosphorus metabolism] Onset: 4 Chronic Other screening for suspected conditions (not mental disorders or infectious disease) (11 sources) Raised prostate specific antigen; 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: [Elevated prostate specific antigen [PSA]] Onset: 4 04-25-2024 Episodic Other skin disorders (1 source) Skin lesion; 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: [Disorder of the skin and subcutaneous tissue, unspecified] Episodic Other skin disorders (1 source) Eruption; 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: [Rash and other nonspecific skin eruption] Episodic Other upper respiratory infections (1 source) Chronic sinusitis, unspecified; 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: [Sinobronchitis] Onset: 5 Chronic Otitis media and related conditions (2 sources) Chronic allergic otitis media; 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: [Chronic allergic otitis media, right ear] Chronic Residual codes; unclassified (1 source) Other specified postprocedural states; 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: [Other specified postprocedural states] Onset: 4 Episodic Residual codes; unclassified (1 source) Procedure and treatment not carried out because of other contraindication; 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: [MRI contraindicated due to metal implant] Onset: 4 Episodic Skin and subcutaneous tissue infections (1 source) Abscess of chest wall; 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: [Cutaneous abscess of chest wall] Episodic Spondylosis; intervertebral disc disorders; other back problems (20 sources) Degeneration of intervertebral disc; 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: [Degeneration of lumbosacral intervertebral disc] Onset: 8 07-25-2016 Chronic Unclassified (4 sources) Pure hypercholesterolemia, unspecified; 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: [Pure hypercholesterolemia, unspecified] Onset: 7 07-25-2016 Unclassified (4 sources) Autogenerated Problem Onset: 03-01-2025 Viral infection (1 source) Disseminated herpes zoster; 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: [Disseminated zoster] 01-15-2024 Episodic Past or Other Problems Problem Classification Problem Date Documented Da te Episodic/Chronic Chronic obstructive pulmonary disease and bronchiectasis (1 source) Bronchitis, not specified as acute or chronic; 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: [Sinobronchitis] Onset: 11-17-2024 Episodic Coma; stupor; and brain damage (2 sources) Daytime somnolence; 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: [Somnolence] Onset: 10-22-2024 10-22-2024 Episodic Diabetes mellitus without complication (20 sources) Type 2 diabetes mellitus; 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: [Type 2 diabetes mellitus with other diabetic kidney complication] Onset: 11-17-2015 Resolved: 11-17-2015 07-26-2016 Chronic Genitourinary symptoms and ill-defined conditions (5 sources) Retention of urine, unspecified; 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: [Feeling of incomplete bladder emptying] Onset: 11-17-2015 Episodic Hemorrhoids (20 sources) Internal hemorrhoids without complication; 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: [Internal hemorrhoids] Onset: 02-18-2007 07-25-2016 Episodic Immunizations and screening for infectious disease (20 sources) Patient encounter status; 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: [Encounter for immunization] Onset: 12-07-2023 Episodic Malaise and fatigue (3 sources) Other malaise; 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: [Fatigue] Onset: 01-09-2024 10-22-2024 Episodic Nausea and vomiting (2 sources) Nausea and vomiting; 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: [Nausea with vomiting, unspecified] Onset: 11-17-2024 Episodic Other aftercare (3 sources) prison (current) use of insulin; 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: [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] Onset: 11-17-2015 Episodic Other and unspecified benign neoplasm (20 sources) Benign neoplasm of colon; 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: [Benign neoplasm of colon, unspecified] Onset: 02-18-2007 07-25-2016 Episodic Other and unspecified benign neoplasm (20 sources) History of polyp of colon; 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: [Personal history of colonic polyps] Onset: 05-23-2017 05-23-2017 Episodic Other diseases of kidney and ureters (1 source) Other obstructive and reflux uropathy; 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: [BPH with obstruction/lower urinary tract symptoms] Onset: 02-12-2012 Episodic Other liver diseases (1 source) Abnormal levels of other serum enzymes; 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: [Elevated alkaline phosphatase level] Onset: 10-22-2024 Episodic Other nutritional; endocrine; and metabolic disorders (4 sources) Body mass index (BMI) 29.0-29.9, adult; 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: [Body mass index (BMI) 29.0-29.9, adult] Onset: 10-25-2016 10-25-2016 Episodic Other upper respiratory disease (1 source) Acute bronchospasm; 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: [Bronchospasm] Onset: 11-17-2024 Episodic Spondylosis; intervertebral disc disorders; other back problems (20 sources) Sciatica; 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: [Sciatica, unspecified side] Onset: 08-31-2008 07-25-2016 Episodic Unclassified (1 source) prostate problems Results Test Name Value Interpretation Reference Range Facility BLADDER SCANon 03-25-2025 PVR 0 ml [facility] No Panel Informationon 03-25 [facility] VOIDING TRIAL PROTOCOLon Bladder scanning reading volume amount of 5 cc.'s. [facility] CNPNon 03-20-2025 CNPN Telephone (UROLAE) -- JING MCKEON ([id number]) 1955 M Date Time Provider Department 03/20/25 PRUDENCIO MCKEON During your visit today, we recorded the following information about you: Sandra Jordan MA 03/20/2025 9:35 AM Signed Patient forgot to pick his prescriptions from the pharmacy before leaving the hospital after surgery with . He would like those prescriptions sent over to [facility] instead. Meds pending and pharmacy verified. Nikki Sandra, CAROLINE 03/20/2025 9:41 AM Signed Patient notified Allergies As of Date: 03/20/2025 (No Known Allergies) Date Reviewed: 03/18/2025 Reviewed by: Adalid Powell, RN - Fully Assessed Reason for Visit: Medication Problem [65] Primary Visit Diagnosis:Benign non-nodular prostatic hyperplasia with lower urinary tract symptoms [N40.1] Order(s):polyethylene glycol 3350 (MIRALAX) 17 gram/dose powderTake 17 grams by mouth once daily for 14 days. Dissolve dose in 4 - 8 ounces of liquid and take as directed.Disp: 238 gRfl: 0 phenazopyridine (PYRIDIUM) 200 mg tabletTake 1 tablet by mouth three times a day as needed for up to 5 days.Disp: 15 tabletRfl: 0 Prescriptions as of 03/20/2025 - polyethylene glycol 3350 (MIRALAX) 17 gram/dose powder Take 17 grams by mouth once daily for 14 days. Dissolve dose in 4 - 8 ounces of liquid and take as directed. - phenazopyridine (PYRIDIUM) 200 mg tablet Take 1 tablet by mouth three times a day as needed for up to 5 days. - insulin degludec (TRESIBA FLEXTOUCH U-100) 100 unit/mL (3 mL) injection pen Inject 20 Units subcutaneously every morning. [employer] Patient Assistance Medication - semaglutide (OZEMPIC) 1 mg/dose (4 mg/3 mL) pen Inject 1 mg subcutaneously one time a week. [employer] PAP. Do not send to pharmacy - patient receives through patient assistance program. For medication order changes (med, dose, frequency) please route to [facility]. - Tadalafil (CIALIS) 20 mg tablet Take 1 tablet by mouth once daily as needed. Take 1-2 hours before sexual activity. - insulin aspart U-100 (NOVOLOG FLEXPEN U-100 INSULIN) 100 unit/mL (3 mL) Inject 10 units before breakfast, 10 units before lunch, and 10 units before dinner as directed. Through [employer] Patient Assistance. - meclizine (ANTIVERT) 25 mg tab Take 1 tablet by mouth three times a day as needed (dizziness). - albuterol HFA (VENTOLIN HFA) 90 mcg/actuation inhaler Inhale 2 puffs as instructed every 4 hours as needed for wheezing/shortness of breath (cough). - benzonatate (TESSALON PERLE) 100 mg capsule Take 1-2 capsules by mouth three times a day as needed for cough. - ondansetron orally disintegrating (ZOFRAN ODT) 4 mg disintegrating tablet Take 1 tablet by mouth every 6 hours as needed for nausea/vomiting. - tamsulosin (FLOMAX) 0.4 mg Take 1 capsule by mouth two times a day. - enalapril (VASOTEC) 20 mg tablet Take 1 tablet by mouth two times a day. - flash glucose sensor (FREESTYLE LUIZA 2 SENSOR) kit Ust to check blood sugars once daily. Please apply free voucher for 1 sensor, pt to bring in - metoprolol succinate ER (TOPROL XL) 50 mg 24 hr tablet Take 1 tablet by mouth two times a day. - gabapentin (NEURONTIN) 300 mg capsule Take 1 capsule by mouth two times a day for 90 days. - Cholecalciferol, Vitamin D3, 125 mcg (5,000 unit) cap Take 1 capsule by mouth once daily. - inulin-chromium picolinate (FIBER SELECT GUMMIES) 2-100 gram-mcg chew Take 1 Dose by mouth once daily. - dorzolamide HCl/timolol maleat (DORZOLAMIDE-TIMOLOL OPHTHALMIC) Use 1 Drop in both eyes two times a day. - beta-carotene,A,-vits C,E/mins (OCUVITE ORAL) Take 1 tablet by mouth once daily. - LATANOPROST, PF, OPHTHALMIC Use 1 Drop in both eyes every morning. - simvastatin (ZOCOR) 40 mg tablet Take 1 tablet by mouth daily at bedtime. - flash glucose scanning reader (FREESTYLE LUIZA 2 READER) Use to check blood sugars once a day. - glucagon (GVOKE HYPOPEN 2-PACK) 0.5 mg/0.1 mL AutoInjector Use to treat severe hypoglycemic episode as recommend on product labeling. - glucose 4 gram chewable tablet Take 4 tablets by mouth as needed. - Insulin [place], Disposable, (BD ULTRA-FINE DONNIE PEN NEEDLE) 32 gauge x 5/32 Use as directed with insulin injections three times daily - Insulin Syringe-Needle U-100 (BD INSULIN SYRINGE UF II) 0.5 mL 31 gauge x 5/16 syrg Use as directed with insulin injections three times daily - Blood Sugar Diagnostic, Drum (ACCU-CHEK COMPACT TEST) Strp Testing 2-3 times daily - lancets(FREESTYLE LANCETS) Use as directed. - COSOPT 2 %-0.5 % EYE DROPS Use in eyes. - ASPIRIN 81 MG TAB Take 81 mg by mouth once daily. - B COMPLEX CAP Take 1 capsule by mouth once daily. - MULTIVITAMIN TAB Take 1 tablet by mouth once daily. Problem List As Of Date 03/20/2025 Noted Resolved Diabetes (more content not included)... Normal [facility] Basic metabolic 2000 panelon 03-19-2025 Anion gap [Moles/Vol] 10 mmol/L Normal 8-15 [facility] Comment on above: Order Comment: Speci men Type: BLOOD SPECIMEN Ordering Facility: [facility] Address: [address] [place] [address] Performed By: #### 2 4321-2 #### [facility] CLIA [id number] [address] [place] [address] [place] Calcium [Mass/Vol] 8.8 mg/dL Normal 8.5-10.2 [facility] Comment on above: Order Comment: Speci men Type: BLOOD SPECIMEN Ordering Facility: [facility] Address: [address] [place] [address] Performed By: #### 2 4321-2 #### [facility] CLIA [id number] [address] [place] [address] [place] Chloride [Moles/Vol] 104 mmol/L Normal 98-107 [facility] Comment on above: Order Comment: Speci men Type: BLOOD SPECIMEN Ordering Facility: [facility] Address: [address] [place] [address] Performed By: #### 2 4321-2 #### [facility] CLIA [id number] [address] [place] [address] [place] CO2 [Moles/Vol] 23 mmol/L Normal 22-30 [facility] Comment on above: Order Comment: Speci men Type: BLOOD SPECIMEN Ordering Facility: [facility] Address: [address] [place] [address] Performed By: #### 2 4321-2 #### [facility] CLIA [id number] [address] Creatinine [Mass/Vol] 0.73 mg/dL Normal 0.73-1.22 [facility] Comment on above: Order Comment: Speci men Type: BLOOD SPECIMEN Ordering Facility: [facility] Address: [address] [place] [address] Performed By: #### 2 4321-2 #### [facility] CLIA [id number] [address] eGFRcr SerPlBld CKD-EPI 2020 97 mL/min/1.73m??? Normal >=60 [facility] Comment on above: Order Comment: Speci men Type: BLOOD SPECIMEN Ordering Facility: [facility] Address: [address] [place] [address] Result Comment: Kia mated Glomerular Filtration Rate (eGFR) is calculated using the 2020 CKD-EPI creatinine equation. This equation utilizes serum creatinine, sex, and age as parameters. The creatinine assay has traceable calibration to isotope dilution-mass spectrometry. Refer to KDIGO guidelines for clinical interpretation. In patients with unstable renal function, e.g. those with acute kidney injury, the eGFR may not accurately reflect actual GFR. Performed By: #### 2 4321-2 #### [facility] CLIA [id number] [address] [place] Glucose [Mass/Vol] 237 mg/dL High 74-99 [facility] Comment on above: Order Comment: Speci men Type: BLOOD SPECIMEN Ordering Facility: [facility] Address: [address] [place] [address] Result Comment: The [place] Diabetes Association (ADA) provides guidance for cutoff values for fasting glucose and random glucose. The ADA defines fasting as no caloric intake for at least 8 hours. Fasting plasma glucose results between 100 to 125 [...] Standards of Medical Care in Diabetes 2016, [place] Diabetes Association. Diabetes Care. 2016.39(Suppl 1). Performed By: #### 2 4321-2 #### [facility] CLIA [id number] [address] [place] Potassium [Moles/Vol] 4.4 mmol/L Normal 3.7-5.1 [facility] Comment on above: Order Comment: Marivel garcia Type: BLOOD SPECIMEN Ordering Facility: [facility] Address: [address] [place] [address] Performed By: #### 2 4321-2 #### [facility] CLIA [id number] [address] Sodium [Moles/Vol] 137 mmol/L Normal 136-144 [facility] Comment on above: Order Comment: Marivel garcia Type: BLOOD SPECIMEN Ordering Facility: [facility] Address: [address] [place] [address] Performed By: #### 2 4321-2 #### [facility] CLIA [id number] [address] [place] [facility] Urea nitrogen [Mass/Vol] 14 mg/dL Normal 9-24 [facility] Comment on above: Order Comment: Marivel garcia Type: BLOOD SPECIMEN Ordering Facility: [facility] Address: [address] [place] [address] Performed By: #### 2 4321-2 #### [facility] CLIA [id number] [address] OF [facility] CASE MANAGEMon 03-19-2025 CASE MANAGEM HNO ID: [id number] Author: GAVIN YARBROUGH RN Service: ? Author Type: Registered Nurse Type: Care Mgt Progress Note Filed: 03/19/2025 16:18 Note Text: CARE MANAGEMENT UTILIZATION REVIEW COMMITTEE Provider-Liable (Admission Status Discrepancy Review) Admission Date: 03/18/2025 Discharge Date: 03/19/2025 Patient's Initial Order is: Inpatient Date Requested: March 19, 2025 Date Reviewed: March 19, 2025 Date of Determination: 03/19/2025 Under the authority of the Utilization Management Committee, the Physician Advisor, Dr. Morelia Pittman, has reviewed the medical record of the above patient. The Physician Advisor has made the following recommendation based on the currently available medical information as of the date of this determination. Recommended Status: Outpatient In a Bed / Extended Recovery Rationale for this decision: Lack of medical necessity for inpatient admission and less than two midnight stay SIGNATURE: aGvin Yarbrough RN PATIENT NAME: Jing Mckeon DATE: March 19, 2025 TIME: 4:18 PM Disclaimer: The information in this determination is to be used for utilization management purposes only. The information and recommendation is made pursuant to Medicare Hospital Conditions of Participation (442 CFR Part 482) and is neither a judgment nor an assessment with regard to the appropriateness or quality of the clinical care. Nothing in this document may be used to limit clinical services provided to the above named patient. This form should be used as one part of the process utilized to ensure compliance with [facility] policy regarding Inpatient Admission and Observation Services. The definitions of Inpatient and Observation used in making the determination above are those provided in Medicare Benefit Policy Manual Chapter 1, Section 1 and 10, Chapter 6, Section 20, and the Medicare Claims Processing Manual Chapter 1, Section 50.3 and Chapter 4, Section 290. This recommendation should be considered as only one factor in determining the patient's final level of service along with other pertinent documentation such as the treating physician's order as documented evidence of concurrence. Normal [facility] CBC panel Auto (Bld)on 03-19 Erythrocyte distribution width (RBC) [Ratio] 13.2 % Normal 11.5-15.0 [facility] Comment on above: Order Comment: Speci men Type: BLOOD SPECIMEN Ordering Facility: [facility] Address: [address] [place] [address] Performed By: #### 5 8410-2 #### [facility] CLIA [id number] 1 [place] [address] [place] Hematocrit (Bld) [Volume fraction] 37.3 % Low 39.0-51.0 [facility] Comment on above: Order Comment: Speci men Type: BLOOD SPECIMEN Ordering Facility: [facility] Address: [address] [place] [address] Performed By: #### 5 8410-2 #### [facility] CLIA [id number] [address] OF [facility] Hemoglobin (Bld) [Mass/Vol] 12.7 g/dL Low 13.0-17.0 [facility] Comment on above: Order Comment: Speci men Type: BLOOD SPECIMEN Ordering Facility: [facility] Address: [address] [place] [address] Performed By: #### 5 8410-2 #### [facility] CLIA [id number] [address] [place] OF [facility] MCH (RBC) [Entitic mass] 31.5 pg Normal 26.0-34.0 [facility] Comment on above: Order Comment: Speci men Type: BLOOD SPECIMEN Ordering Facility: [facility] Address: [address] [place] [address] Performed By: #### 5 8410-2 #### [facility] CLIA [id number] [address] OF [facility] MCHC (RBC) [Mass/Vol] 34.0 g/dL Normal 30.5-36.0 [facility] Comment on above: Order Comment: Speci men Type: BLOOD SPECIMEN Ordering Facility: [facility] Address: [address] [place] [address] Performed By: #### 5 8410-2 #### [facility] CLIA [id number] [address] [place] MCV (RBC) [Entitic vol] 92.6 fL Normal 80.0-100.0 [facility] Comment on above: Order Comment: Speci men Type: BLOOD SPECIMEN Ordering Facility: [facility] Address: [address] [place] [address] Performed By: #### 5 8410-2 #### [facility] CLIA [id number] [address] [place] Nucleated RBC (Bld) [#/Vol] 10*3/uL Normal <0.01 [facility] Comment on above: Order Comment: Speci men Type: BLOOD SPECIMEN Ordering Facility: [facility] Address: [address] [place] [address] Performed By: #### 5 8410-2 #### [facility] CLIA [id number] [address] [place] Platelet mean volume (Bld) [Entitic vol] 12.3 fL Normal 9.0-12.7 [facility] Comment on above: Order Comment: Speci men Type: BLOOD SPECIMEN Ordering Facility: [facility] Address: [address] [place] [address] Performed By: #### 5 8410-2 #### [facility] CLIA [id number] [address] [place] Platelets (Bld) [#/Vol] 209 10*3/uL Normal 150-400 [facility] Comment on above: Order Comment: Speci men Type: BLOOD SPECIMEN Ordering Facility: [facility] Address: [address] [place] [address] Performed By: #### 5 8410-2 #### [facility] CLIA [id number] [address] [place] RBC (Bld) [#/Vol] 4.03 10*6/uL Low 4.20-6.00 [facility] Comment on above: Order Comment: Speci men Type: BLOOD SPECIMEN Ordering Facility: [facility] Address: [address] [place] [address] Performed By: #### 5 8410-2 #### [facility] CLIA [id number] [address] [place] WBC (Bld) [#/Vol] 14.01 10*3/uL High 3.70-11.00 [facility] Comment on above: Order Comment: Speci men Type: BLOOD SPECIMEN Ordering Facility: [facility] Address: [address] [place], [place] [address] [id number] Performed By: #### 5 8410-2 #### [facility] [id number] [address] OF [facility] Tamika 03-19-2025 CN HNO ID: [id number] Author: PRUDENCIO MCKEON MD Service: Urology Author Type: Resident Type: Discharge Summary Filed: 03/19/2025 16:19 Note Text: -- Attestation signed by Prudencio Mckeon MD at 03/19/2025 4:19 PM Prudencio Mckeon MD -- UROLOGY DISCHARGE SUMMARY PATIENT NAME: Jing Mckeon ADMISSION DATE: 03/18/2025 DISCHARGE DATE: 03/19/2025 Attending Physician: Prudencio Mckeon MD Reason for Hospitalization: Principal Problem: BPH associated with nocturia (POA: Yes) Resolved Problems: * No resolved hospital problems. * Operations During Hospitalization: Holmium laser enucleation of prostate (HoLEP) Hospital Course: Patient was admitted for the above surgery. Patient was transferred to the recovery unit and then to the regular nursing floor. Diet was slowly advanced as tolerated. Activity level was gradually increased. Pain was controlled on oral medications. The patient was then deemed fit for discharge.Patient failed discharged and went home with a catheter.. Labs and Procedures Pending at Discharge: No pending results. Consulting Teams During Hospitalization: None Patient Condition @ Discharge: Stable Discharge Disposition: Home with Self Care Information Provided to Patient: See discharge instructions Discharge Medications: Medication List START taking these medications phenazopyridine 200 mg tablet Commonly known as: PYRIDIUM Take 1 tablet by mouth three times a day as needed for up to 5 days. polyethylene glycol 3350 17 gram/dose powder Commonly known as: MIRALAX Take 17 g by mouth once daily for 14 days. Dissolve dose in 4 - 8 ounces of liquid and take as directed. CONTINUE taking these medications albuterol HFA 90 mcg/actuation inhaler Commonly known as: VENTOLIN HFA Inhale 2 puffs as instructed every 4 hours as needed for wheezing/shortness of breath (cough). Aspirin 81 mg Tab B COMPLEX capsule Generic drug: vitamin b complex benzonatate 100 mg capsule Commonly known as: TESSALON PERLE Take 1-2 capsules by mouth three times a day as needed for cough. Blood Sugar Diagnostic, Drum strip Commonly known as: ACCU-CHEK COMPACT TEST Testing 2-3 times daily Cholecalciferol (Vitamin D3) 125 mcg (5,000 unit) Cap Take 1 capsule by mouth once daily. * DORZOLAMIDE-TIMOLOL OPHTHALMIC * COSOPT 22.3-6.8 mg/mL ophthalmic solution Generic drug: dorzolamide-timolol enalapril 20 mg tablet Commonly known as: VASOTEC Take 1 tablet by mouth two times a day. FIBER SELECT GUMMIES 2-100 gram-mcg Chew Generic drug: inulin-chromium picolinate Take 1 Dose by mouth once daily. FREESTYLE LANCETS 28 gauge Generic drug: lancets Use as directed. FREESTYLE LUIZA 2 READER Generic drug: flash glucose scanning reader Use to check blood sugars once a day. FREESTYLE LUIZA 2 SENSOR Kit Generic drug: flash glucose sensor Ust to check blood sugars once daily. Please apply free voucher for 1 sensor, pt to bring in gabapentin 300 mg capsule Commonly known as: NEURONTIN Take 1 capsule by mouth two times a day for 90 days. glucose 4 gram chewable tablet Take 4 tablets by mouth as needed. GVOKE HYPOPEN 2-PACK 0.5 mg/0.1 mL auto-injector Generic drug: glucagon Use to treat severe hypoglycemic episode as recommend on product labeling. insulin aspart U-100 100 unit/mL (3 mL) pen Commonly known as: NovoLOG Flexpen U-100 Insulin Inject 10 units before breakfast, 10 units before lunch, and 10 units before dinner as directed. Through [employer] Patient Assistance. insulin degludec 100 unit/mL (3 mL) injection pen Commonly known as: TRESIBA FLEXTOUCH U-100 Inject 20 Units subcutaneously every morning. [employer] Patient Assistance Medication Insulin [place] (Disposable) 32 gauge x 5/32 Commonly known as: BD ULTRA-FINE DONNIE PEN NEEDLE Use as directed with insulin injections three times daily Insulin Syringe-Needle U-100 0.5 mL 31 gauge x 5/16 Commonly known as: BD Insulin Syringe UF II Use as directed with insulin injections three times daily LATANOPROST (PF) OPHTHALMIC meclizine 25 mg Tab Commonly known as: ANTIVERT Take 1 tablet by mouth three times a day as needed (dizziness). metoprolol succinate ER 50 mg 24 hr tablet Commonly known as: TOPROL XL Take 1 tablet by mouth two times a day. multivitamin tablet OCUVITE ORAL ondansetron orally disintegrating 4 mg disintegrating tablet Commonly known as: ZOFRAN ODT Take 1 tablet by mouth every 6 hours as needed for nausea/vomiting. semaglutide 1 mg/dose (4 mg/3 mL) pen Commonly known as: OZEMPIC Inject 1 mg subcutaneously one time a week. [employer] PAP. Do not send to pharmacy - patient receives through patient assistance program. For medication order changes (med, dose, frequency) please route to pool RX [facility] (more content not included)... Normal [facility] 03-19-2025 [facility] Telephone ([facility]) -- JING MCKEON ([id number]) 1955 M Date Time Provider Department 03/19/25 [place]NA [place] During your visit today, we recorded the following information about you: Tana Park MD 03/19/2025 1:34 PM Signed HOLEP 03/18 Retention after VT [address] Mckeon would like VT on 03/20 Thanks! George Gill 03/19/2025 2:18 PM Addendum [facility] to call back and schedule.(2 visit AM/PM) George Briceno 03/20/2025 9:29 AM Signed PT scheduled. Allergies As of Date: 03/19/2025 (No Known Allergies) Date Reviewed: 03/18/2025 Reviewed by: Adalid Powell, SANIYA - Fully Assessed Prescriptions as of 03/20/2025 - phenazopyridine (PYRIDIUM) 200 mg tablet Take 1 tablet by mouth three times a day as needed for up to 5 days. - polyethylene glycol 3350 (MIRALAX) 17 gram/dose powder Take 17 grams by mouth once daily for 14 days. Dissolve dose in 4 - 8 ounces of liquid and take as directed. - insulin degludec (TRESIBA FLEXTOUCH U-100) 100 unit/mL (3 mL) injection pen Inject 20 Units subcutaneously every morning. [employer] Patient Assistance Medication - semaglutide (OZEMPIC) 1 mg/dose (4 mg/3 mL) pen Inject 1 mg subcutaneously one time a week. [employer] PAP. Do not send to pharmacy - patient receives through patient assistance program. For medication order changes (med, dose, frequency) please route to [facility]. - Tadalafil (CIALIS) 20 mg tablet Take 1 tablet by mouth once daily as needed. Take 1-2 hours before sexual activity. - insulin aspart U-100 (NOVOLOG FLEXPEN U-100 INSULIN) 100 unit/mL (3 mL) Inject 10 units before breakfast, 10 units before lunch, and 10 units before dinner as directed. Through [employer] Patient Assistance. - meclizine (ANTIVERT) 25 mg tab Take 1 tablet by mouth three times a day as needed (dizziness). - albuterol HFA (VENTOLIN HFA) 90 mcg/actuation inhaler Inhale 2 puffs as instructed every 4 hours as needed for wheezing/shortness of breath (cough). - benzonatate (TESSALON PERLE) 100 mg capsule Take 1-2 capsules by mouth three times a day as needed for cough. - ondansetron orally disintegrating (ZOFRAN ODT) 4 mg disintegrating tablet Take 1 tablet by mouth every 6 hours as needed for nausea/vomiting. - tamsulosin (FLOMAX) 0.4 mg Take 1 capsule by mouth two times a day. - enalapril (VASOTEC) 20 mg tablet Take 1 tablet by mouth two times a day. - flash glucose sensor (FREESTYLE LUIZA 2 SENSOR) kit Ust to check blood sugars once daily. Please apply free voucher for 1 sensor, pt to bring in - metoprolol succinate ER (TOPROL XL) 50 mg 24 hr tablet Take 1 tablet by mouth two times a day. - gabapentin (NEURONTIN) 300 mg capsule Take 1 capsule by mouth two times a day for 90 days. - Cholecalciferol, Vitamin D3, 125 mcg (5,000 unit) cap Take 1 capsule by mouth once daily. - inulin-chromium picolinate (FIBER SELECT GUMMIES) 2-100 gram-mcg chew Take 1 Dose by mouth once daily. - dorzolamide HCl/timolol maleat (DORZOLAMIDE-TIMOLOL OPHTHALMIC) Use 1 Drop in both eyes two times a day. - beta-carotene,A,-vits C,E/mins (OCUVITE ORAL) Take 1 tablet by mouth once daily. - LATANOPROST, PF, OPHTHALMIC Use 1 Drop in both eyes every morning. - simvastatin (ZOCOR) 40 mg tablet Take 1 tablet by mouth daily at bedtime. - flash glucose scanning reader (FREESTYLE LUIZA 2 READER) Use to check blood sugars once a day. - glucagon (GVOKE HYPOPEN 2-PACK) 0.5 mg/0.1 mL AutoInjector Use to treat severe hypoglycemic episode as recommend on product labeling. - glucose 4 gram chewable tablet Take 4 tablets by mouth as needed. - Insulin [place], Disposable, (BD ULTRA-FINE DONNIE PEN NEEDLE) 32 gauge x 5/32 Use as directed with insulin injections three times daily - Insulin Syringe-Needle U-100 (BD INSULIN SYRINGE UF II) 0.5 mL 31 gauge x 5/16 syrg Use as directed with insulin injections three times daily - Blood Sugar Diagnostic, Drum (ACCU-CHEK COMPACT TEST) Strp Testing 2-3 times daily - lancets(FREESTYLE LANCETS) Use as directed. - COSOPT 2 %-0.5 % EYE DROPS Use in eyes. - ASPIRIN 81 MG TAB Take 81 mg by mouth once daily. - B COMPLEX CAP Take 1 capsule by mouth once daily. - MULTIVITAMIN TAB Take 1 tablet by mouth once daily. Problem List As Of Date 03/19/2025 Noted Resolved Diabetes mellitus (HCC) [E11.9] 11/17/2015 Primary hypertension [I10] PURE HYPERCHOLESTEROLEM [E78.00] CARPAL TUNNEL SYNDROME [G56.00] GLAUCOMA NOS [H40.9] RECTAL AND ANAL HEMORRHAGE [K62.5] BENIGN NEOPLASM LG BOWEL [D12.6] 02/18/2007 GASTROINTEST HEMORR NOS [K92.2] 02/18/2007 INT HEMORRHOID W/O COMPL [K64.8] 02/18/2007 LUMB/LUMBOSAC DISC DEGEN [M51.379] 05/02/2008 SCIATICA [M54.30] 08/31/2008 BPH with obstruction/lower urinary tract sympto*02/12/2012 Type 2 diabetes mellitus with microalbumin (more content not included)... Normal [facility] NURSING PROGon 03-19-2025 NURSING PROG HNO ID: [id number] Author: ERIC FONTENOT RN Service: ? Author Type: Registered Nurse Type: Nursing Progress Note Filed: 03/19/2025 12:18 Note Text: Attempted void trial, pt c/o pressure, bladder scan for October [facility] notified, verbal given to place 18 f coude, mallory placed 750 initial return of pink urine Normal [facility] ANES POSTPROC EVALon 025 ANES POSTPROC EVAL HNO ID: [id number] Author: TOMAS SCHREIBER DO Service: Anesthesiology Author Type: Physician Type: Anesthesia Postprocedure Evaluation Filed: 03/18/2025 17:38 Note Text: POST ANESTHESIA EVALUATION NOTE : 1955 Procedure Summary Date: 03/18/25 Room / Location: [place] OR 12 / [place] Anesthesia Start: 1215 Anesthesia Stop: 1430 Procedure: LASER ENUCLEATION PROSTATE WITH MORCELLATION (Prostate) Diagnosis: Benign prostatic hyperplasia with weak urinary stream (Benign prostatic hyperplasia with weak urinary stream [N40.1, R39.12]) Surgeons: Prudencio Mckeon MD Responsible Provider: Tomas Schreiber DO Anesthesia Type: general ASA Status: 3 Anesthesia Type: general Airway Type: ETT Last Vitals Vitals Value Taken Time BP 139/62 03/18/25 17:30 Temp 36 ?C (96.8 ?F) 03/18/25 15:15 Pulse 88 03/18/25 17:38 Resp 20 03/18/25 17:38 SpO2 95 % 03/18/25 17:38 Vitals shown include unfiled device data. Post Anesthesia Patient Status Anticipated Disposition: phase 2 then home. Neurological Status: aware and responsive. Pulmonary Status: breathing comfortably on room air Airway Control: returned to baseline unsupported. Cardiovascular Status: stable. Pain Management: clinically adequate - multimodal analgesia pain management approach Postoperative Hydration: acceptable. Intraoperative Events: no significant anesthesia events Post Operative Nausea/Vomiting Status: no significant post operative nausea or vomiting Recommendation: continue current plan of care. Anesthesia Observations No Documentation SIGNATURE: Tomas Schreiber DO PATIENT NAME: Jing Mckeon DATE: March 18, 2025 TIME: 5:38 PM CSN: [id number] Normal [facility] ANES PRE-OPon 03-18-2025 ANES PRE-OP HNO ID: [id number] Author: MELLY ANDREWS MD Service: Anesthesiology Author Type: Physician Type: Anesthesia Preprocedure Evaluation Filed: 03/18/2025 10:10 Note Text: ANESTHESIOLOGY DAY OF SURGERY NOTE : 1955 Procedure Information Date/Time: 03/18/25 1145 Procedure: LASER ENUCLEATION PROSTATE WITH MORCELLATION (Prostate) Location: [place] OR 12 / [place] Surgeons: Prudencio Mckeon MD Estimated body mass index is 26.75 kg/m? as calculated from the following: Height as of 03/04/25: 170.2 cm (5' 7). Weight as of 03/04/25: 77.5 kg (170 lb 12.8 oz). Most recent hematocrit and potassium results: Hematocrit 40.2 03/04/2025 K 4.7 03/04/2025 Relevant Problems CARDIO (+) Internal hemorrhoids without mention of complication (+) Primary hypertension ENDO (+) Type 2 diabetes mellitus with microalbuminuria, with long-term current use of insulin (HCC) GI (+) Gastroesophageal reflux disease PULMONARY (+) Asthma (HCC) I - PHYSICAL EVALUATION AIRWAY Patient intubated: No. Tracheostomy tube not present Mallampati: III. TM distance: >3 FB. Neck ROM: full ROM without neurological symptoms. Mouth openin FB. Short neck: no. Thick neck: no DENTAL Dental findings: teeth intact. II - ANESTHESIA PLAN ASA Score: 3 Anesthetic Plan: general Airway type: ETT NPO Status: adequate Monitoring Plan Monitoring plan: standard ASA. Post Procedure Analgesic Plan Postoperative analgesic plan: parenteral or oral opioids. Informed Consent Anesthetic risks, benefits, alternatives, personnel and consent discussed: yes. Patient / Responsible Constitution Party agrees to proceed: yes Patient / Surrogate agrees to blood products: blood products not planned DNR status not reviewed with patient and/or family prior to surgery. Significant changes in the patient condition since the History and Physical, not otherwise documented in primary service progress note: no. Potential Anesthesia issues that may suggest increased risk of complications or contraindication to planned procedure: none. Vitals Value Taken Time BP 174/71 03/18/25 10:01 Pulse 73 03/18/25 10:01 Resp 17 03/18/25 10:01 Temp 36.2 ?C (97.2 ?F) 03/18/25 10:01 SpO2 97 % 03/18/25 10:01 No current facility-administered medications on file as of 03/18/2025. Outpatient Medications as of 03/18/2025 Medication Sig Tadalafil (CIALIS) 20 mg tablet Take 1 tablet by mouth once daily as needed. Take 1-2 hours before sexual activity. insulin aspart U-100 (NOVOLOG FLEXPEN U-100 INSULIN) 100 unit/mL (3 mL) Inject 10 units before breakfast, 10 units before lunch, and 10 units before dinner as directed. Through [employer] Patient Assistance. meclizine (ANTIVERT) 25 mg tab Take 1 tablet by mouth three times a day as needed (dizziness). albuterol HFA (VENTOLIN HFA) 90 mcg/actuation inhaler Inhale 2 puffs as instructed every 4 hours as needed for wheezing/shortness of breath (cough). benzonatate (TESSALON PERLE) 100 mg capsule Take 1-2 capsules by mouth three times a day as needed for cough. ondansetron orally disintegrating (ZOFRAN ODT) 4 mg disintegrating tablet Take 1 tablet by mouth every 6 hours as needed for nausea/vomiting. tamsulosin (FLOMAX) 0.4 mg Take 1 capsule by mouth two times a day. enalapril (VASOTEC) 20 mg tablet Take 1 tablet by mouth two times a day. flash glucose sensor (FREESTYLE LUIZA 2 SENSOR) kit Ust to check blood sugars once daily. Please apply free voucher for 1 sensor, pt to bring in metoprolol succinate ER (TOPROL XL) 50 mg 24 hr tablet Take 1 tablet by mouth two times a day. Cholecalciferol, Vitamin D3, 125 mcg (5,000 unit) cap Take 1 capsule by mouth once daily. inulin-chromium picolinate (FIBER SELECT GUMMIES) 2-100 gram-mcg chew Take 1 Dose by mouth once daily. dorzolamide HCl/timolol maleat (DORZOLAMIDE-TIMOLOL OPHTHALMIC) Use 1 Drop in both eyes two times a day. beta-carotene,A,-vits C,E/mins (OCUVITE ORAL) Take 1 tablet by mouth once daily. LATANOPROST, PF, OPHTHALMIC Use 1 Drop in both eyes every morning. simvastatin (ZOCOR) 40 mg tablet Take 1 tablet by mouth daily at bedtime. flash glucose scanning reader (FREESTYLE LUIZA 2 READER) Use to check blood sugars once a day. glucagon (GVOKE HYPOPEN 2-PACK) 0.5 mg/0.1 mL AutoInjector Use to treat severe hypoglycemic episode as recommend on product labeling. glucose 4 gram chewable tablet Take 4 tablets by mouth as needed. Insulin [place], Disposable, (BD ULTRA-FINE DONNIE PEN NEEDLE) 32 gauge x 5/32 Use as directed with insulin injections three times daily Insulin Syringe-Needle U-100 (BD INSULIN SYRINGE UF II) 0.5 mL 31 gauge x 5/16 syrg Use as directed with insulin injections three times daily Blood Sugar Diagnostic, Drum (ACCU-CHEK COMPACT TEST) Strp Testing 2-3 times daily lancets(FREESTYLE LANCETS) Use as directed. COSOPT 2 %-0.5 % EYE DROPS Use in eyes. ASPIRIN 81 MG TAB Take 81 mg by mouth once daily. B COMPLEX CAP (more content not included)... Normal [facility] OPERATIVE NOon 03-18-2025 OPERATIVE NO HNO ID: [id number] Author: PRUDENCIO MCKEON MD Service: Urology Author Type: Physician Type: Operative Report Filed: 03/18/2025 14:13 Note Text: OPERATIVE/PROCEDURE REPORT LOG ID: [id number] SURGERY/PROCEDURE DATE: 03/18/2025 INCISION/PROCEDURE START TIME: 12:48 PM INCISION CLOSE/PROCEDURE END TIME: 2:02 PM SURGEON(S)/PROCEDURALIST(S ) AND DIRECTOR OF FOOD AND BEVERAGE SERVICES(S): Surgeons and Role: * Prudencio Mckeon MD - Primary * Lori Stephenson MD - Resident - Assisting No Additional Staff SURGERY/PROCEDURE(S): Laser enucleation of the prostate Meatal dilation OPERATIVE FINDINGS: Bilobar BPH High bladder neck Limited hip mobility Enucleation time: 42 min Morcellation time: 3 min Tissue removed: 41 g Laser settings: Enucleation: 2 J / 50 Hz, Enucleation Hemostasis/fine dissection: 0.8 J / 50 Hz, Flex Long Pulse FOLLOWUP PLAN: - Admit for observation overnight - Lasix 20 mg - Abx continue Keflex - TOV on POD 1 SURGERY/PROCEDURE DETAILS: Jing Mckeon is a 69 year old patient who presents with BPH and weak stream. Also with history of elevated PSA, with negative MRI in 2023, but 93 g prostate. After having a discussion on treatment options, risks and benefits, the patient wishes to proceed forward with surgical intervention. The patient was brought to the operating room where a huddle involving the patient, surgeons, anesthesia, and operative staff correctly identified the patient, procedure to be performed, laterality, allergies, antibiotics, and equipment to be used. General endotracheal anesthesia was administrated and intravenous Ancef and TXA given. SCDs were placed for DVT prophylaxis. The patient was then placed in the high dorsal lithotomy position (marked limited hip mobility, required high lithotomy to access genitalia) with all pressure points padded and prepped and draped in the usual sterile fashion. At this point, a time-out was performed, again correctly identifying the patient, position, procedure, antibiotics, and necessary equipment. Urethral meatus was noted to be narrow, so it was dilated sequentially using sounds from 20 F to 30 F. The 26-Congolese resectoscope was placed into the urethral meatus and cystourethroscopy was performed. The anterior urethra was normal. Posterior urethra showed evidence of bilobar BPH with a high bladder neck and small median lobe with some lateral lobe coaptation. The bladder was capacious and trabeculated. Ureteral orifices were easily identified. Given the size and shape of the prostate, we elected to use an en bloc technique. Using a 600 end-firing Thulio laser fiber, we made circumferential mucosal incision at the apex and extended this around the proximal part of the verumontanum. We then identified the plane under the median lobe with the laser and dissected in the plane for a little bit. We then turned our attention to the right lobe and initiated the plane under the apex using the laser. We carried this incision around to 12 o'clock. Similarly, we initiated the plane under the left lobe and carried this to 12 o'clock and joined this to the incision from the other side. At this point we had a circumferential plane initiated. We dissected along the anterior plane until we incised the bladder neck fibers and entered the bladder. We then completed the dissection along the right plane and then the left side. The prostate tissue was then flipped into the bladder and the final attachments along the posterior plane were divided and the tissue pushed into the bladder. There was a fair amount of oozing from some large vessels at the bladder neck that were controlled with the laser. Hemostasis was established by defocusing our laser and coagulating the bleeding vessels. Once we had good hemostasis in the prostatic fossa, we turned our attention to the morcellation step. The Richard Salmon Piranha morcellator was used to morcellate all of the prostate tissue, which was sent for pathological analysis. The laser was then used to obtain hemostasis once again. We confirmed that both ureteral orifices, the verumontanum, and sphincter were intact at this point. Scope was removed, and lidocaine jelly was instilled in the urethra. We next passed a 24 Congolese-Congolese 3-way Mallory catheter using a catheter guide into the bladder with about 50 mL placed in the balloon. We irrigated nice light pink outflow and then started continuous bladder irrigation. The patient tolerated the procedure well and was transferred to the recovery room in stable condition. Patient awoken from anesthesia having tolerated the procedure well. Jing Mckeon was transferred to recovery room. PRE-OP/PRE-PROCEDURE DIAGNOSIS: BPH with weak stream POST-OP/POST-PROCEDURE DIAGNOSIS: Same as pre-op dx ESTIMATED BLOOD LOSS: 25 mls SPECIMENS: ID Type Source Tests Collected by Time Destination A : Tissue Prostate, Chips SURGICAL PATHOLOGY Prudencio Mckeon MD 03/18 (more content not included)... Normal [facility] Pathology biopsy report Dameon (Tiss)on 03-18-2025 AP DISCLAIMER Normal [facility] Comment on above: Order Comment: Speci men Type: TISSUE SPECIMENOrdering Facility: [facility] Address: [address] [place] [address] Result Comment: Gurpreet jensen Developed Test (LDT) Disclaimer: Performance characteristics of immunohistochemical, immunofluorescent, and chromogenic in-situ hybridization tests have been determined by the performing laboratory within the [facility] Department of Pathology and Laboratory Medicine ([facility], [facility], [facility], [facility], [facility], [facility], or [facility]) in a manner consistent with CLIA requirements. One or more of these tests may not have been cleared or approved by the FDA. The [facility] Department of Pathology and Laboratory Medicine is regulated under CLIA as qualified to perform high-complexity testing. These tests are used for clinical purposes. These should not be regarded as investigational or for research. Positive and negative controls stain appropriately. Performed By: #### 6 6121-5 ####[facility] HOSPITALIA [id number] [address] [place] CASE REPORT Normal [facility] Comment on above: Order Comment: Speci men Type: TISSUE SPECIMENOrdering Facility: [facility] Address: [address] [place] [address] Result Comment: Surg [facility] Pathology Report Case: [id number] Authorizing Provider: Prudencio Mckeon MD Collected: 03/18/2025 01:51 PM Ordering Location: [facility] Received: 03/19/2025 07:23 AM Pathologist: Andrew Guerrero MD Specimen: Prostate, Chips Performed By: #### 6 6121-5 ####[facility]ORYCLIA [id number] [address] CLINICAL HISTORY Normal [facility] Comment on above: Order Comment: Speci men Type: TISSUE SPECIMENOrdering Facility: [facility] Address: [address] [place] [address] Result Comment: Pre- op diagnosis: Benign prostatic hyperplasia with weak urinary stream [N40.1, R39.12] Performed By: #### 6 6121-5 ####[facility]ORYCLIA [id number] [address] FINAL DIAGNOSIS Normal [facility] Comment on above: Order Comment: Speci men Type: TISSUE SPECIMENOrdering Facility: [facility] Address: [address] [place] [address] Result Comment: Gina muniz, transurethral resection: - Benign prostatic tissues. at 1541 EDT Performed By: #### 6 6121-5 ####[facility]ORYCLIA [id number] [address] FINAL PERFORMING LAB Normal [facility] Comment on above: Order Comment: Speci men Type: TISSUE SPECIMENOrdering Facility: [facility] Address: [address] [place] [address] Result Comment: Diag nostic interpretation performed at: [facility], [address] [place] [address] CLIA# [id number] Hi Low Truck Driver: Andrew Guerrero MD Performed By: #### 6 6121-5 ####[facility]ORYCLIA [id number] [address] GROSS DESCRIPTION Normal [facility] Comment on above: Order Comment: Speci men Type: TISSUE SPECIMENOrdering Facility: [facility] Address: [address] [place] [address] Result Comment: Gina muniz, Chips Received in formalin labeled prostate chips are multiple he-pink very segments of tissue aggregating to 7.8 x 7.4 x 2.1 cm and weighing in aggregate of 39.6 g. Shade Cloth Finisher sections are submitted in formalin in 8 cassettes. Gross examination performed at [facility], [address] [facility] [employer] Operator, [place] [address] KVB March 19, 2025 11:03 AM Performed By: #### 6 6121-5 ####[facility]ATORYCLIA [id number] [address] [place] Bacteria Ur Culton 5 Bacteria identified Cx Nom (U) CULTURE, URINE: No growth (<1,000 CFU/ml) Normal [facility] Comment on above: Performed By: #### 6 30-4 ####[facility]ORY[facility]IA [id number] [place] [address] [place] Basic metabolic 2000 panelon 03-04-2025 Anion gap [Moles/Vol] 11 mmol/L Normal 8-15 [facility] Comment on above: Order Comment: Speci men Type: BLOOD SPECIMEN [facility] Address: [address] [place] [address] Performed By: #### 2 4321-2 #### [facility] CLIA [id number] [address] [place] [address] [place] Calcium [Mass/Vol] 9.7 mg/dL Normal 8.5-10.2 [facility] Comment on above: Order Comment: Speci men Type: BLOOD SPECIMEN [facility] Address: [address] [place] [address] Performed By: #### 2 4321-2 #### [facility] CLIA [id number] [address] [place] [address] [place] Chloride [Moles/Vol] 101 mmol/L Normal 98-107 [facility] Comment on above: Order Comment: Speci men Type: BLOOD SPECIMEN [facility] Address: [address] [place] [address] Performed By: #### 2 4321-2 #### [facility] CLIA [id number] [address] [place] [address] [place] CO2 [Moles/Vol] 26 mmol/L Normal 22-30 [facility] Comment on above: Order Comment: Speci men Type: BLOOD SPECIMEN [facility] Address: [address] [place] [address] Performed By: #### 2 4321-2 #### [facility] CLIA [id number] [address] [place] [address] [place] Creatinine [Mass/Vol] 1.03 mg/dL Normal 0.73-1.22 [facility] Comment on above: Order Comment: Marivel garcia Type: BLOOD SPECIMEN [facility] Address: [address] [place] [address] Performed By: #### 2 4321-2 #### [facility] CLIA [id number] [address] [place] [address] [place] eGFRcr SerPlBld CKD-EPI 2020 78 mL/min/1.73m??? Normal >=60 [facility] Comment on above: Order Comment: Zinajoe garcia Type: BLOOD SPECIMEN [facility] Address: [address] [place] [address] Result Comment: Kia mated Glomerular Filtration Rate (eGFR) is calculated using the 2020 CKD-EPI creatinine equation. This equation utilizes serum creatinine, sex, and age as parameters. The creatinine assay has traceable calibration to isotope dilution-mass spectrometry. Refer to KDIGO guidelines for clinical interpretation. In patients with unstable renal function, e.g. those with acute kidney injury, the eGFR may not accurately reflect actual GFR. Performed By: #### 2 4321-2 #### [facility] CLIA [id number] [address] [place] [address] [place] Glucose [Mass/Vol] 98 mg/dL Normal 74-99 [facility] Comment on above: Order Comment: Marivel garcia Type: BLOOD SPECIMEN [facility] Address: [address] [place] [address] Result Comment: The [place] Diabetes Association (ADA) provides guidance for cutoff values for fasting glucose and random glucose. The ADA defines fasting as no caloric intake for at least 8 hours. Fasting plasma glucose results between 100 to 125 [...] Standards of Medical Care in Diabetes 2016, [place] Diabetes Association. Diabetes Care. 2016.39(Suppl 1). Performed By: #### 2 4321-2 #### [facility] CLIA [id number] [address] [place] Potassium [Moles/Vol] 4.7 mmol/L Normal 3.7-5.1 [facility] Comment on above: Order Comment: Speci men Type: BLOOD SPECIMEN [facility] Address: [address] [place] [address] Performed By: #### 2 4321-2 #### [facility] CLIA [id number] [address] [place] Sodium [Moles/Vol] 138 mmol/L Normal 136-144 [facility] Comment on above: Order Comment: Speci men Type: BLOOD SPECIMEN [facility] Address: [address] [place] [address] Performed By: #### 2 4321-2 #### [facility] CLIA [id number] [address] [place] Urea nitrogen [Mass/Vol] 16 mg/dL Normal 9-24 [facility] Comment on above: Order Comment: Speci men Type: BLOOD SPECIMEN [facility] Address: [address] [place] [address] Performed By: #### 2 4321-2 #### [facility] CLIA [id number] [address] [place] CBC panel Auto (Bld)on 03-04 Erythrocyte distribution width (RBC) [Ratio] 12.8 % Normal 11.5-15.0 [facility] Comment on above: Order Comment: Speci men Type: BLOOD SPECIMEN [facility] Address: [address] [place] [address] Performed By: #### 5 8410-2 #### [facility] CLIA [id number] [address] [place] Hematocrit (Bld) [Volume fraction] 40.2 % Normal 39.0-51.0 [facility] Comment on above: Order Comment: Speci men Type: BLOOD SPECIMEN [facility] Address: [address] [place] [address] Performed By: #### 5 8410-2 #### [facility] CLIA [id number] [address] Hemoglobin (Bld) [Mass/Vol] 13.3 g/dL Normal 13.0-17.0 [facility] Comment on above: Order Comment: Speci men Type: BLOOD SPECIMEN [facility] Address: [address] [place] [address] Performed By: #### 5 8410-2 #### [facility] CLIA [id number] [address] MCH (RBC) [Entitic mass] 30.4 pg Normal 26.0-34.0 [facility] Comment on above: Order Comment: Speci men Type: BLOOD SPECIMEN [facility] Address: [address] [place] [address] Performed By: #### 5 8410-2 #### [facility] CLIA [id number] [address] MCHC (RBC) [Mass/Vol] 33.1 g/dL Normal 30.5-36.0 [facility] Comment on above: Order Comment: Speci men Type: BLOOD SPECIMEN Ordering Facility: [facility] Address: [address] [place] [address] Performed By: #### 5 8410-2 #### [facility] CLIA [id number] [address] MCV (RBC) [Entitic vol] 92.0 fL Normal 80.0-100.0 [facility] Comment on above: Order Comment: Speci men Type: BLOOD SPECIMEN Ordering Facility: [facility] Address: [address] [place] [address] Performed By: #### 5 8410-2 #### [facility] CLIA [id number] [address] Nucleated RBC (Bld) [#/Vol] 10*3/uL Normal <0.01 [facility] Comment on above: Order Comment: Speci men Type: BLOOD SPECIMEN Ordering Facility: [facility] Address: [address] [place] [address] Performed By: #### 5 8410-2 #### [facility] CLIA [id number] [address] [place] Platelet mean volume (Bld) [Entitic vol] 12.6 fL Normal 9.0-12.7 [facility] Comment on above: Order Comment: Speci men Type: BLOOD SPECIMEN Ordering Facility: [facility] Address: [address] [place] [address] Performed By: #### 5 8410-2 #### [facility] CLIA [id number] [address] [place] Platelets (Bld) [#/Vol] 231 10*3/uL Normal 150-400 [facility] Comment on above: Order Comment: Speci men Type: BLOOD SPECIMEN Ordering Facility: [facility] Address: [address] [place] [address] Performed By: #### 5 8410-2 #### [facility] CLIA [id number] [address] [place] RBC (Bld) [#/Vol] 4.37 10*6/uL Normal 4.20-6.00 [facility] Comment on above: Order Comment: Speci men Type: BLOOD SPECIMEN Ordering Facility: [facility] Address: [address] [place] [address] Performed By: #### 5 8410-2 #### [facility] CLIA [id number] 1 [place] [address] [place] WBC (Bld) [#/Vol] 9.35 10*3/uL Normal 3.70-11.00 [facility] Comment on above: Order Comment: Speci men Type: BLOOD SPECIMEN Ordering Facility: [facility] Address: [address] [place] [address] Performed By: #### 5 8410-2 #### [facility] CLIA [id number] 1 [place] [address] [place] HISTORY PHYSICALon HISTORY PHYSICAL HNO ID: [id number] Author: JAYNE HERNANDEZ APRN.YARD WORKER Service: ? Author Type: Nurse Practitioner Type: H&P Filed: 03/04/2025 14:41 Note Text: [facility] HISTORY AND PHYSICAL EXAMINATION SERVICE DATE: 03/04/2025 SERVICE TIME: 2:20 PM PRIMARY CARE PHYSICIAN: Son Zambrano MD Assessment Patient has the following medical conditions which may affect iris-operative course: Pre-op examination see note for medical conditions which may affect iris-operative course that were addressed at today's visit. Benign prostatic hyperplasia with weak urinary stream Surgery scheduled 03/18/25. Primary hypertension Metoprolol- Instructed to take morning of surgery. Enalapril- Instructed to hold morning of surgery. PURE HYPERCHOLESTEROLEM Simvastatin- Instructed to continue taking medication as prescribed. Type 2 diabetes mellitus with microalbuminuria, with long-term current use of insulin ([facility]) Insulin- Instructed to follow prescribing physician's perioperative instructions. Semaglutide- Instructed to hold 7 days prior to surgery. Hemoglobin A1C (%) Date Value 12/30/2024 8.2 06/27/2021 7.7 Asthma ([facility]) Albuterol. Patient uses rescue inhaler twice a month. Denies hospitalization in the last year due to respiratory issues. Instructed to continue using inhaler as prescribed and to bring inhaler to surgery. Peripheral vertigo Meclizine PRN- Instructed to take morning of surgery, if needed. Patient states that he has not needed to take medication recently. Gastroesophageal reflux disease No medication. Diet and lifestyle modification. ANESTHESIA FINDINGS: Intubation History: No history of difficult intubation. No abnormal airway history Significant Anesthesia Considerations: none Airway History: No history of difficult airway No abnormal airway history Ramos Activity Status Index: METS: Climb a flight of stairs or walk up a hill (5.50 METs) DASI Score: 5.5 Patient denies any chest pain or undue shortness of breath with the above physical activity. ARISCAT Score: Age: 51-80 Preoperative SpO2: >=96% Respiratory infection in the last month: No Preoperative anemia: No Surgical incision: peripheral Duration of surgery: 2-3 hrs Emergency procedure: No ARISCAT Score: 19 I - PHYSICAL EVALUATION AIRWAY Patient intubated: No. DENTAL Dental findings: missing tooth/teeth. Additional comments: +upper bridge. II - ANESTHESIA PLAN Anesthetic Plan: general Beta David Monitoring Plan Post Procedure Analgesic Plan Prepared for Surgery: CONSULTS: Patient does not require consults for optimization at this time Planned Anesthetic: general The Following Tests/Procedures Have Been Initiated: BMP, CBC, UA, and UC ordered in Epic per surgeon. REASON FOR VISIT: Jing Mckeon is a 69 year old male who is scheduled for Procedure(s): LASER ENUCLEATION PROSTATE WITH MORCELLATION (N/A) at the request of Dr. Prudencio Mckeon for routine HANDP. My final recommendation will be communicated back to the requesting physician by way of shared medical record or letter. Subjective The patient has the following: COVID-19 Immunization Status This patient has no relevant Health Maintenance data. CHIEF COMPLAINT: The reason for this visit is to perform a comprehensive review of the patients past medical history, assess their current health status and obtain any additional testing required based on anesthesia guidelines. To assess and identify potential anesthesia problems, particularly those that may suggest potential complications or contraindications to the planned procedure. HPI: Patient is a 69 year old male who presents for presurgical testing. Patient has a history of BPH. He recently had a cystoscopy performed in office that revealed Urethra: Normal; Prostate: Trilobar hypertrophy, no discrete median lobe; Bladder: no stones, no tumors, no lesions, trabeculated, both ureteral orifices seen on retroflexion; Retroflexion: with intravesical protrusion of the prostate (~10 mm). . Denies any dysuria, hematuria, and nocturia. Endorses frequency and urgency. Denies any pain at PAT visit. Denies any recent fever or chills. Patient denies any other problems or concerns at this time. Risks and benefits of the procedure discussed by Surgeon and patient agreed to proceed with planned procedure. REVIEW OF SYSTEMS: General: Positive for: malaise. Negative for: weight loss >10% of BW in last 6 months and fever. Neurological: Negative for: seizures and strokes. Respiratory: Positive for: asthma. Negative for: COPD, pneumonia within 6 weeks, tobacco use, URI < 2 weeks and obstructive sleep apnea. Cardiovascular: Positive for: hyperlipidemia and hypertension Negative for: atrial fibrillation, CAD, chest pain, CHF and DVT/PE. GI: Positive for: GERD Negative for: liver disease. : (more content not included)... Normal [facility] Urinalysis complete panel (U )on 03-04-2025 Bilirubin Ql (U) Negative Normal Negative [facility] Comment on above: Order Comment: Speci men Type: URINE SPECIMEN Ordering Facility: [facility] Address: [address] [place] [address] Performed By: #### 2 4356-8 #### [facility] CLIA [id number] [address] [place] Clarity (Unsp spec) Clear Normal Clear [facility] Comment on above: Order Comment: Speci men Type: URINE SPECIMEN Ordering Facility: [facility] Address: [address] [place] [address] Performed By: #### 2 4356-8 #### [facility] CLIA [id number] [address] [place] Color (U) Yellow Normal yellow [facility] Comment on above: Order Comment: Speci men Type: URINE SPECIMEN Ordering Facility: [facility] Address: [address] [place] [address] Performed By: #### 2 4356-8 #### [facility] CLIA [id number] [address] OF [facility] Glucose Test strip (U) [Mass/Vol] Negative Normal Trace, Negative [facility] Comment on above: Order Comment: Speci men Type: URINE SPECIMEN Ordering Facility: [facility] Address: [address] [place] [address] Performed By: #### 2 4356-8 #### [facility] CLIA [id number] [address] [place] Hemoglobin Ql (U) Negative Normal Negative, Trace [facility] Comment on above: Order Comment: Speci men Type: URINE SPECIMEN Ordering Facility: [facility] Address: [address] [place] [address] Performed By: #### 2 4356-8 #### [facility] CLIA [id number] [address] [place] Ketones Ql (U) Negative Normal Negative, Trace [facility] Comment on above: Order Comment: Speci men Type: URINE SPECIMEN Ordering Facility: [facility] Address: [address] [place] [address] Performed By: #### 2 4356-8 #### [facility] CLIA [id number] [address] [place] Leukocyte esterase Test strip Ql (U) Negative Normal Negative, 25 Monie/uL [facility] Comment on above: Order Comment: Speci men Type: URINE SPECIMEN Ordering Facility: [facility] Address: [address] [place] [address] Performed By: #### 2 4356-8 #### [facility] CLIA [id number] [address] [place] Nitrite Ql (U) Negative Normal Negative [facility] Comment on above: Order Comment: Speci men Type: URINE SPECIMEN Ordering Facility: [facility] Address: [address] [place] [address] Performed By: #### 2 4356-8 #### [facility] CLIA [id number] [address] [place] pH (U) 6.0 [pH] Normal 5.0-8.0 [facility] Comment on above: Order Comment: Speci men Type: URINE SPECIMEN Ordering Facility: [facility] Address: [address] [place] [address] Performed By: #### 2 4356-8 #### [facility] CLIA [id number] [address] [place] Protein (U) [Mass/Vol] Negative Normal Trace, Negative [facility] Comment on above: Order Comment: Speci men Type: URINE SPECIMEN Ordering Facility: [facility] Address: [address] [place] [address] Performed By: #### 2 4356-8 #### [facility] CLIA [id number] [address] RBC LM.HPF (Urine sed) [#/Area] 0-3 /HPF Normal 0-3 /HPF [facility] Comment on above: Order Comment: Speci men Type: URINE SPECIMEN Ordering Facility: [facility] Address: [address] [place] [address] Performed By: #### 2 4356-8 #### [facility] CLIA [id number] [address] Specific gravity (U) [Rel density] 1.006 Normal 1.005-1.030 [facility] Comment on above: Order Comment: Speci men Type: URINE SPECIMEN Ordering Facility: [facility] Address: [address] [place] [address] Performed By: #### 2 4356-8 #### [facility] CLIA [id number] [address] [place] [address] Urobilinogen Ql (U) Normal Normal Normal [facility] Comment on above: Order Comment: Speci men Type: URINE SPECIMEN Ordering Facility: [facility] Address: [address] [place] [address] Performed By: #### 2 4356-8 #### [facility] CLIA [id number] [address] [place] [address] WBC LM.HPF (Urine sed) [#/Area] 0-5 /HPF Normal 0-5 /HPF [facility] Comment on above: Order Comment: Speci men Type: URINE SPECIMEN Ordering Facility: [facility] Address: [address] [place] [address] Performed By: #### 2 4356-8 #### [facility] CLIA [id number] [address] CNOVon 02-23-2025 CNOV Office Visit (INTMWS ) -- JING MCKEON ([id number]) 1955 M Date Time Provider Department 02/23/25 10:40 AM JOSSY CARUSO During your visit today, we recorded the following information about you: Jossy Caruso APRN.CAVALRY SCOUT 02/23/2025 10:02 AM Signed Screening schedule The following prevention plan is recommended: Shingrix Vaccine(1 of 2) Never done Medicare Annual Wellness Visit Never done RSV Vaccine(1 - Risk 60-74 years 1-dose series) Never done DTaP,Tdap,Td Vaccine(2 - Td or Tdap) due on 04/01/2022 Advance Directive Discussion due on 07/23/2024 Diabetic Foot Exam due on 10/21/2024 Depression Screening due on 02/20/2025 Anxiety Screening due on 02/20/2025 WHAT YOU CAN DO TO PREVENT FALLS Many falls can be prevented. By making some changes, you can lower your chances of falling. Four things YOU can do to prevent falls for you* and your caregiver 1. Begin a regular exercise program Exercise is one of the most important ways to lower your chances of falling. It makes you stronger and helps you feel better. Exercises that improve balance and coordination (like Peewee Chi) are the most helpful. Lack of exercise leads to weakness and increases your chances of falling. Ask your doctor or health care provider about the best type of exercise program for you. 2. Have your health care provider review your medicines Have your doctor or pharmacist review all the medicines you take, even [id number] medicines. As you get older, the way medicines work in your body can change. Some medicines, or combinations of medicines, can make you sleepy or dizzy and can cause you to fall. 3. Have your vision checked Have your eyes checked by an eye doctor at least once a year. You may be wearing the wrong glasses or have a condition like glaucoma or cataracts that limits your vision. Poor vision can increase your chances of falling. 4. Make your home safer About half of all falls happen at home. To make your home safer: Remove things you can trip over (like papers, books, clothes, and shoes) from stairs and places where you walk. Remove small throw rugs or use double-sided tape to keep the rugs from slipping. Keep items you use often in cabinets you can reach easily without using a step stool. Have grab bars put in next to your toilet and in the tub or shower. Use non-slip mats in the bathtub and on shower floors. Improve the lighting in your home. As you get older, you need brighter lights to see well. Hang light-weight curtains or shades to reduce glare. Have handrails and lights put in on all staircases. Wear shoes both inside and outside the house. Avoid going barefoot or wearing slippers. For more information, contact: Centers for Disease Control and Prevention www.cdc.gov/injury * This information may not apply if you have certain medical conditions. Jossy Caruso APRN.CAVALRY SCOUT 02/26/2025 11:22 AM Signed . Referring Provider: JOSSY CARUSO [[id number]] Allergies As of Date: 02/23/2025 (No Known Allergies) Date Reviewed: 02/12/2025 Reviewed by: Jessica Ricks [facility] - Fully Assessed Primary Visit Diagnosis:Medicare annual wellness visit, subsequent [Z00.00] Other Visit Diagnoses:Encounter for immunization [Z23] Screening for depression [Z13.31] Encounter for screening examination for other mental health and behavioral disorders [Z13.39] Prescriptions as of 02/26/2025 - insulin degludec (TRESIBA FLEXTOUCH U-100) 100 unit/mL (3 mL) injection pen Inject 20 Units subcutaneously every morning. Mike Nordisk Patient Assistance Medication - semaglutide (OZEMPIC) 1 mg/dose (4 mg/3 mL) pen Inject 1 mg subcutaneously one time a week. [employer] PAP. Do not send to pharmacy - patient receives through patient assistance program. For medication order changes (med, dose, frequency) please route to pool RX [facility]. - Tadalafil (CIALIS) 20 mg tablet Take 1 tablet by mouth once daily as needed. Take 1-2 hours before sexual activity. - insulin aspart U-100 (NOVOLOG FLEXPEN U-100 INSULIN) 100 unit/mL (3 mL) Inject 10 units before breakfast, 10 units before lunch, and 10 units before dinner as directed. Through [employer] Patient Assistance. - meclizine (ANTIVERT) 25 mg tab Take 1 tablet by mouth three times a day as needed (dizziness). - albuterol HFA (VENTOLIN HFA) 90 mcg/actuation inhaler Inhale 2 puffs as instructed every 4 hours as needed for wheezing/shortness of breath (cough). - benzonatate (TESSALON PERLE) 100 mg capsule Take 1-2 capsules by mouth three times a day as needed for cough. - ondansetron orally disintegrating (ZOFRAN ODT) 4 mg disintegrating tablet Take 1 tablet by mouth every 6 hours as needed for nausea/vomiting. - tamsulosin (FLOMAX) 0.4 mg Take 1 capsule by mouth two times a day. - enalapril (VASOTEC) 20 mg tablet Take 1 tablet (more content not included)... Normal [facility] CNOVon 02-12-2025 CNOV Office Visit (PHMEWO ) -- JING MCKEON ([id number]) 1955 M Date Time Provider Department 02/12/25 1:30 PM JESSICA RICKS [facility] During your visit today, we recorded the following information about you: Jessica Ricks RPh 02/12/2025 2:50 PM Signed Primary Care Pharmacy Visit CC (Reason for Consult): (E11.29, R80.9, Z79.4) Type 2 diabetes mellitus with microalbuminuria, with long-term current use of insulin ([facility]) (primary encounter diagnosis) Goal(s): A1c <8% Last Collaborating Provider Visit: 10/22/[address] Kenya Castaneda Mike is a 69 year old male presenting for follow up visit in person. Patient consents to pharmacy collaborative practice agreement. Last Pharmacy Visit: 01/01/25 - Tresiba increased, Novolog decreased HPI: Reports doing well States BGs have been doing pretty well, occasional lows this past week. Usually occurs in the morning Will be having surgery 03/18/25, needs instructions for how to take his insulin then. Pre-surgery note mentions requirement to hold Ozempic 7 days prior to surgery Tolerating Ozempic well Still has quite a few boxes of Ozempic left at home Current DM Medications: Ozempic 1 mg once weekly on Mondays Tresiba 22 units once daily at bedtime Novolog 10 units before meals - taking 12 units with meals Diet Denies any recent changes GLYCEMIC CONTROL: Glucometer present at visit: Yes Hypoglycemia: Yes CGM Data Past medical history reviewed. ALLERGIES No Known Allergies Current Outpatient Medications Medication Sig Dispense Refill semaglutide (OZEMPIC) 1 mg/dose (4 mg/3 mL) pen Inject 1 mg subcutaneously one time a week. [employer] PAP. Do not send to pharmacy - patient receives through patient assistance program. For medication order changes (med, dose, frequency) please route to kenneth RX [facility]. 9 mL Tadalafil (CIALIS) 20 mg tablet Take 1 tablet by mouth once daily as needed. Take 1-2 hours before sexual activity. 30 tablet 0 insulin aspart U-100 (NOVOLOG FLEXPEN U-100 INSULIN) 100 unit/mL (3 mL) Inject 10 units before breakfast, 10 units before lunch, and 10 units before dinner as directed. Through [employer] Patient Assistance. insulin degludec (TRESIBA FLEXTOUCH U-100) 100 unit/mL (3 mL) injection pen Inject 22 Units subcutaneously every morning. [employer] Patient Assistance Medication meclizine (ANTIVERT) 25 mg tab Take 1 tablet by mouth three times a day as needed (dizziness). 30 tablet 1 albuterol HFA (VENTOLIN HFA) 90 mcg/actuation inhaler Inhale 2 puffs as instructed every 4 hours as needed for wheezing/shortness of breath (cough). 18 g 3 benzonatate (TESSALON PERLE) 100 mg capsule Take 1-2 capsules by mouth three times a day as needed for cough. 60 capsule 1 ondansetron orally disintegrating (ZOFRAN ODT) 4 mg disintegrating tablet Take 1 tablet by mouth every 6 hours as needed for nausea/vomiting. 20 tablet 0 tamsulosin (FLOMAX) 0.4 mg Take 1 capsule by mouth two times a day. 180 capsule 3 enalapril (VASOTEC) 20 mg tablet Take 1 tablet by mouth two times a day. 180 tablet 3 flash glucose sensor (FREESTYLE LUIZA 2 SENSOR) kit Ust to check blood sugars once daily. Please apply free voucher for 1 sensor, pt to bring in 6 Each 3 metoprolol succinate ER (TOPROL XL) 50 mg 24 hr tablet Take 1 tablet by mouth two times a day. 60 tablet 5 gabapentin (NEURONTIN) 300 mg capsule Take 1 capsule by mouth two times a day for 90 days. (Patient not taking: Reported on 02/21/2024) 60 capsule 2 Cholecalciferol, Vitamin D3, 125 mcg (5,000 unit) cap Take 1 capsule by mouth once daily. inulin-chromium picolinate (FIBER SELECT GUMMIES) 2-100 gram-mcg chew Take 1 Dose by mouth once daily. dorzolamide HCl/timolol maleat (DORZOLAMIDE-TIMOLOL OPHTHALMIC) Use 1 Drop in both eyes two times a day. beta-carotene,A,-vits C,E/mins (OCUVITE ORAL) Take 1 tablet by mouth once daily. LATANOPROST, PF, OPHTHALMIC Use 1 Drop in both eyes every morning. simvastatin (ZOCOR) 40 mg tablet Take 1 tablet by mouth daily at bedtime. 90 tablet 3 flash glucose scanning reader (FREESTYLE LUIZA 2 READER) Use to check blood sugars once a day. 1 Each 0 glucagon (GVOKE HYPOPEN 2-PACK) 0.5 mg/0.1 mL AutoInjector Use to treat severe hypoglycemic episode as recommend on product labeling. 0.2 mL 3 glucose 4 gram chewable tablet Take 4 tablets by mouth as needed. 30 tablet 2 Insulin [place], Disposable, (BD ULTRA-FINE DONNIE PEN NEEDLE) 32 gauge x 5/32 Use as directed with insulin injections three times daily 100 Each 11 Insulin Syringe-Needle U-100 (BD INSULIN SYRINGE UF II) 0.5 mL 31 gauge x 5/16 syrg Use as directed with insulin injections three times daily 300 Syringe 3 Blood Sugar Diagnostic, Drum (ACCU-CHEK COMPACT TEST) Strp Testing 2-3 times daily 306 Strip 3 lancets(FREESTYLE LANCETS) Use as directed. (more content not included)... Normal [facility] CNOVon 02-10-2025 CNOV Office Visit (AKURFL ) -- MIKEJING ([id number]) 1955 M Date Time Provider Department 02/10/25 1:30 PM PRUDENCIO MCKEON During your visit today, we recorded the following information about you: Pulse Respiration Weight Height 66/minute 14/minute 76.2 kg 1.702 m Prudencio Mckeon MD 02/10/2025 2:53 PM Signed [facility] Patient presents with BPH for cystoscopy. UNIVERSAL PROTOCOL / SAFETY CHECKLIST Procedure to be Performed: Cystoscopy Sign In: A Moment of CARE was completed. Appropriate PPE (Personal Protective Equipment) worn by all providers involved with the procedure. Special equipment not required. Patient/Surrogate Stated/Verified: Patient name, Date of , Relevant allergies, and the intended procedure Time Out: Relevant labs, photos, and/or imaging studies have been reviewed. Intended patient and procedure match the source document(s) (e.g. consent, HANDP, associated studies [imaging, pathology]) match the intended patient and procedure. Consent obtained and matches the intended procedure. Yes. Correct side/site is not applicable. Medications required for this procedure are verified. Fire risk assessed and is not applicable. Implants: are not applicable. Sign Out: Specimens not collected. All instruments, equipment, possible retained foreign bodies are accounted for. Yes. The post-procedure plan of care has been communicated to the patient or surrogate. CYSTOSCOPY PROCEDURE NOTE: The benefits, risks, alternatives of the cystoscopy procedure and personnel were discussed with the patient. The verbal consent was obtained and the patient agrees to proceed. Procedure: The patient was placed on the procedure table in the supine position and prepped and draped in the usual sterile fashion. 2% Lidocaine Jelly was placed per urethra as an anesthetic in the standard fashion. Once adequate local anesthesia was achieved, the tip of the flexible cystoscope was carefully placed into the urethra under direct visual guidance. Urethra: Normal Prostate: Trilobar hypertrophy, no discrete median lobe Bladder: no stones, no tumors, no lesions, trabeculated, both ureteral orifices seen on retroflexion Retroflexion: with intravesical protrusion of the prostate (~10 mm) At the conclusion of the procedure, the flexible cystoscope was removed atraumatically. The patient tolerated the procedure without complications. Patient was given standard post-procedure instructions, and was directed to complete the course of oral antibiotics and increase oral fluid intake as directed. ASSESSMENT/PLAN: 1. Benign non-nodular prostatic hyperplasia with lower urinary tract symptoms - ICD9: 600.91, ICD10: N40.1 (primary diagnosis) 2. Elevated PSA - ICD9: 790.93, ICD10: R97.20 HoLEP as scheduled Prudencio Mckeon MD Allergies As of Date: 02/10/2025 (No Known Allergies) Date Reviewed: 02/10/2025 Reviewed by: Jessy Fontaine MA - Fully Assessed Reason for Visit: Cystoscopy-1 [303] Primary Visit Diagnosis:Benign non-nodular prostatic hyperplasia with lower urinary tract symptoms [N40.1] Other Visit Diagnosis:Elevated PSA [R97.20] Prescriptions as of 02/10/2025 - semaglutide (OZEMPIC) 1 mg/dose (4 mg/3 mL) pen Inject 1 mg subcutaneously one time a week. [employer] PAP. Do not send to pharmacy - patient receives through patient assistance program. For medication order changes (med, dose, frequency) please route to [facility]. - Tadalafil (CIALIS) 20 mg tablet Take 1 tablet by mouth once daily as needed. Take 1-2 hours before sexual activity. - insulin aspart U-100 (NOVOLOG FLEXPEN U-100 INSULIN) 100 unit/mL (3 mL) Inject 10 units before breakfast, 10 units before lunch, and 10 units before dinner as directed. Through [employer] Patient Assistance. - insulin degludec (TRESIBA FLEXTOUCH U-100) 100 unit/mL (3 mL) injection pen Inject 22 Units subcutaneously every morning. [employer] Patient Assistance Medication - meclizine (ANTIVERT) 25 mg tab Take 1 tablet by mouth three times a day as needed (dizziness). - albuterol HFA (VENTOLIN HFA) 90 mcg/actuation inhaler Inhale 2 puffs as instructed every 4 hours as needed for wheezing/shortness of breath (cough). - benzonatate (TESSALON PERLE) 100 mg capsule Take 1-2 capsules by mouth three times a day as needed for cough. - ondansetron orally disintegrating (ZOFRAN ODT) 4 mg disintegrating tablet Take 1 tablet by mouth every 6 hours as needed for nausea/vomiting. - tamsulosin (FLOMAX) 0.4 mg Take 1 capsule by mouth two times a day. - enalapril (VASOTEC) 20 mg tablet Take 1 tablet by mouth two times a day. - flash glucose sensor (FREESTYLE LUIZA 2 SENSOR) kit Ust to check blood sugars once daily. Please apply free voucher for 1 sensor, pt to bring in - met (more content not included)... Normal [facility] 02-06-20[facility] -- JING MCKEON ([id number]) 1955 M Date Time Provider Department 02/06/25 JESSICA RICKS [facility] During your visit today, we recorded the following information about you: Jessica Ricks [facility] 02/06/2025 3:18 PM Signed [employer] will no longer be auto-shipping Ozempic to providers offices when patient is due for refill. Instead, a refill/reorder form will need to be filled in each time and signed by provider, faxed to company AND processed for medication to be sent. Confirmed is taking Ozempic 1 mg weekly. Ozempic dose change is not required Confirmed last shipment date: 12/23/24 (4 boxes received) Jessica Ricks, PharmD, BCACP Primary Care Clinical Cylinder Valve Repairer Allergies As of Date: 02/06/2025 (No Known Allergies) Date Reviewed: 01/05/2025 Reviewed by: Natasha Fitzgerald LPN - Fully Assessed Reason for Visit: Patient Update [1234] Cmt: Ozempic Refills Order(s):Order #: [id number] Prescriptions as of 02/06/2025 - semaglutide (OZEMPIC) 1 mg/dose (4 mg/3 mL) pen Inject 1 mg subcutaneously one time a week. [employer] PAP. Do not send to pharmacy - patient receives through patient assistance program. For medication order changes (med, dose, frequency) please route to [facility]. - Tadalafil (CIALIS) 20 mg tablet Take 1 tablet by mouth once daily as needed. Take 1-2 hours before sexual activity. - insulin aspart U-100 (NOVOLOG FLEXPEN U-100 INSULIN) 100 unit/mL (3 mL) Inject 10 units before breakfast, 10 units before lunch, and 10 units before dinner as directed. Through [employer] Patient Assistance. - insulin degludec (TRESIBA FLEXTOUCH U-100) 100 unit/mL (3 mL) injection pen Inject 22 Units subcutaneously every morning. [employer] Patient Assistance Medication - meclizine (ANTIVERT) 25 mg tab Take 1 tablet by mouth three times a day as needed (dizziness). - albuterol HFA (VENTOLIN HFA) 90 mcg/actuation inhaler Inhale 2 puffs as instructed every 4 hours as needed for wheezing/shortness of breath (cough). - benzonatate (TESSALON PERLE) 100 mg capsule Take 1-2 capsules by mouth three times a day as needed for cough. - ondansetron orally disintegrating (ZOFRAN ODT) 4 mg disintegrating tablet Take 1 tablet by mouth every 6 hours as needed for nausea/vomiting. - tamsulosin (FLOMAX) 0.4 mg Take 1 capsule by mouth two times a day. - enalapril (VASOTEC) 20 mg tablet Take 1 tablet by mouth two times a day. - flash glucose sensor (FREESTYLE LUIZA 2 SENSOR) kit Ust to check blood sugars once daily. Please apply free voucher for 1 sensor, pt to bring in - metoprolol succinate ER (TOPROL XL) 50 mg 24 hr tablet Take 1 tablet by mouth two times a day. - gabapentin (NEURONTIN) 300 mg capsule Take 1 capsule by mouth two times a day for 90 days. - Cholecalciferol, Vitamin D3, 125 mcg (5,000 unit) cap Take 1 capsule by mouth once daily. - inulin-chromium picolinate (FIBER SELECT GUMMIES) 2-100 gram-mcg chew Take 1 Dose by mouth once daily. - dorzolamide HCl/timolol maleat (DORZOLAMIDE-TIMOLOL OPHTHALMIC) Use 1 Drop in both eyes two times a day. - beta-carotene,A,-vits C,E/mins (OCUVITE ORAL) Take 1 tablet by mouth once daily. - LATANOPROST, PF, OPHTHALMIC Use 1 Drop in both eyes every morning. - simvastatin (ZOCOR) 40 mg tablet Take 1 tablet by mouth daily at bedtime. - flash glucose scanning reader ([employer]s [employer] LUIZA 2 READER) Use to check blood sugars once a day. - glucagon (GVOKE HYPOPEN 2-PACK) 0.5 mg/0.1 mL AutoInjector Use to treat severe hypoglycemic episode as recommend on product labeling. - glucose 4 gram chewable tablet Take 4 tablets by mouth as needed. - Insulin [place], Disposable, (BD ULTRA-FINE DONNIE PEN NEEDLE) 32 gauge x 5/32 Use as directed with insulin injections three times daily - Insulin Syringe-Needle U-100 (BD INSULIN SYRINGE UF II) 0.5 mL 31 gauge x 5/16 syrg Use as directed with insulin injections three times daily - Blood Sugar Diagnostic, Drum (ACCU-CHEK COMPACT TEST) Strp Testing 2-3 times daily - lancets(FREESTYLE LANCETS) Use as directed. - COSOPT 2 %-0.5 % EYE DROPS Use in eyes. - ASPIRIN 81 MG TAB Take 81 mg by mouth once daily. - B COMPLEX CAP Take 1 capsule by mouth once daily. - MULTIVITAMIN TAB Take 1 tablet by mouth once daily. Problem List As Of Date 02/06/2025 Noted Resolved Diabetes mellitus (HCC) [E11.9] 11/17/2015 Primary hypertension [I10] PURE HYPERCHOLESTEROLEM [E78.00] CARPAL TUNNEL SYNDROME [G56.00] GLAUCOMA NOS [H40.9] RECTAL AND ANAL HEMORRHAGE [K62.5] BENIGN NEOPLASM LG BOWEL [D12.6] 02/18/2007 GASTROINTEST HEMORR NOS [K92.2] 02/18/2007 INT HEMORRHOID W/O COMPL [K64.8] 02/18/2007 LUMB/LUMBOSAC DISC DEGEN [M51.379] 05/02/2008 SCIATICA [M54.30] 08/31/2008 BPH with obstruction/lower urinary tract sympto*02/11 (more content not included)... Normal [facility] CNOVon 01-05-2025 CNOV Office Visit (UROLMD ) -- JING MCKEON ([id number]) 1955 M Date Time Provider Department 01/05/25 10:30 AM PRUDENCIO MCKEON UROMASOOD During your visit today, we recorded the following information about you: Weight Height 75.3 kg 1.702 m Prudencio Mckeon MD 01/05/2025 11:06 AM Signed [facility] NOTE Patient: Jing Mckeon Provider: Prudencio Mckeon MD : 1955 Date of Service: 01/05/2025 PCP: Son Zambrano MD Chief complaint/Identification: Jing Mckeon is a 69 year old male patient who presents for evaluation of BPH and elevated PSA. ASSESSMENT: 1. Elevated PSA - ICD9: 790.93, ICD10: R97.20 (primary diagnosis) 2. Benign non-nodular prostatic hyperplasia with lower urinary tract symptoms - ICD9: 600.91, ICD10: N40.1 3. Screening for genitourinary condition - ICD9: V81.6, ICD10: Z13.89 4. Erectile dysfunction, unspecified erectile dysfunction type - ICD9: 607.84, ICD10: N52.9 Large gland BPH (93 cc, MRI 05/11/2024) Elevated PSA, last PSA 6.53 ng/mL - Negative MRI (04/2024) Erectile dysfunction PLAN: The patient and I discussed the options of continued medical therapy versus proceeding with surgical procedure to relieve bladder outlet obstruction from BPH. We discussed office procedures such as Urolift, iTIND and Rezum, endoscopic procedures such as TURP, button vaporization, Aquablation, laser enucleation, as well as OSP and RSP. He wants to proceed with HoLEP. I have discussed with patient the risks, benefits and alternatives of the procedure. Risks of procedure to include but not be limited to bleeding, infection including sepsis, urinary incontinence temporary or permanent, erectile dysfunction, retrograde ejaculation, urethral stricture or bladder neck contracture, bladder injury potentially requiring open surgical repair, partial resection potentially requiring reoperation, worsening lower urinary tract symptoms and incidental finding of prostate cancer and complications of anesthesia. All patient questions answered. Does not want to go home with catheter. Plan for surgery in [place], with admission for observation with same-day vs next-day trial of void pending urine. Will need pre-op cysto Will Rx Cialis 20 mg for ED -Consent signed -Pre-surgical testing -Labs -UA/UCX Prudencio Mckeon MD HPI: 01/05/2025 IPSS: 17 / 3 Also complains of erectile dysfunction, does not have many spontaneous erections. No prior interventions. Seen by Ryan Gee NP for elevated PSA. History of BPH, on Flomax for 10+ years (0.4 mg BID). 11/03/2024: IPSS 9 / 2; PVR 15 mL 04/25/2024: MRI prostate: 93 cc, negative for prostate cancer 09/17/2023: IPSS 18 / 4; PVR 72 mL PSA: 12/30/2024: 6.53 06/20/2024: 6.3 11/03/2023: 6.6 07/14/2023: 6.91 07/07/2019: 4.79 04/19/2013: 2.61 03/30/2012: 6.78 REVIEW OF SYSTEMS: A ROS was performed and pertinent negatives and positives can be found in the HPI. RELEVANT IMAGING STUDIES (most recent): MRI 3D POST PROCESSING Narrative: * * *Final Report* * * DATE OF EXAM: Apr 25 2024 12:00PM [facility] 0280 - MRI 3D POST PROCESSING / PROCEDURE REASON: Elevated PSA * * * * Physician Interpretation * * * * EXAMINATION: MRI PELVIS WITHOUT AND WITH IV CONTRAST (MULTIPARAMETRIC PROSTATE MRI) CLINICAL HISTORY: 68 years old being evaluated for prostate cancer. No prior biopsy. Previous biopsy: None reported PSA: 6.60 ng/mL (11/03/2023) 33% free; Prior therapy: None. TECHNIQUE: Multiparametric MRI of the prostate and pelvis performed on a 3T scanner utilizing phase pelvic coil. Sequences obtained: multiplanar T2-WI with small FOV; Axial DWI with multiple B-values and creation of ADC-maps; DCE T1-weighted images through the prostate obtained before, during and after the administration of intravenous gadolinium. THREE-DIMENSIONAL IMAGIND imaging including complex volumetric analysis of the prostate was performed on a dedicated stand-alone workstation by the interpreting physician, with images reviewed and archived. CONTRAST: IV: 14 cc of Dotarem. COMPARISON: None RESULT: Prostate: 6.3 x 5.6 x 5.5 cm Gland volume: 93 cc Post biopsy hemorrhage: Absent Peripheral zone: Linear and/or wedge-shaped T2/ADC map hypointensities (PI-RADS 2). Transition zone: Transition zone hypertrophy, without focal abnormalities suspicious for clinically significant disease (PI-RADS 1). Neurovascular bundle: Unremarkable. Seminal vesicles: Unremarkable. Adjacent Organ Involvement: Not applicable. Lymph nodes: No enlarged pelvic lymph nodes. Bladder: Unremarkable. Pelvic bones: No suspicious pelvic osseous lesions. Other Findings: Small fat-containing left inguinal hernia. Impression: IMPRESSION: No focal (more content not included)... Normal [facility] UA DIP, URINE (POC)on 2024 BILIRUBIN UA (POCT) Negative Negative [facility] CLARITY UA (POCT) Clear [facility] COLOR UA (POCT) Yellow [facility] GLUCOSE UA (POCT) Negative Negative mg/dL [facility] Hemoglobin Ql (U) Negative Negative [facility] Interpretation and review of laboratory results Abnormal [facility] KETONE UA (POCT) Negative Negative mg/dL [facility] LEUKOCYTES UA (POCT) Negative Negative [facility] NITRITE UA (POCT) Negative Negative [facility] PH UA (POCT) 5.5 4.5 - 8.0 [facility] Protein Ql (U) Trace Abnormal Negative mg/dL [facility] SPECIFIC GRAVITY UA (POCT) 1.025 1.005 - 1.030 [facility] UROBILINOGEN UA (POCT) 0.2 Normal E.U./dL [facility] [address] [place], [address] [facility] POINT OF CARE [facility] CNOVon 01-01-2025 CNOV Office Visit (PHMEWO ) -- JING MCKEON ([id number]) 1955 M Date Time Provider Department 01/01/25 2:00 PM JESSICA RICKS [facility] During your visit today, we recorded the following information about you: Jessica Ricks RPh 01/01/2025 2:15 PM Signed Primary Care Pharmacy Visit CC (Reason for Consult): (E11.29, R80.9, Z79.4) Type 2 diabetes mellitus with microalbuminuria, with long-term current use of insulin (HCC) (primary encounter diagnosis) Goal(s): A1c <8% Last Collaborating Provider Visit: 10/22/[address] Kenya Castaneda Mike is a 69 year old male presenting for follow up visit in person. Patient consents to pharmacy collaborative practice agreement. Last Pharmacy Visit: 10/02/24 HPI: Reports doing well States BGs have been a little bit higher than before States he could be a little bit more active, but has had some low energy lately Still has adequate supply of the insulins and Ozempic; however, received Novolog vials again Current DM Medications: Ozempic 1 mg once weekly on Mondays Tresiba 20 units once daily at bedtime Novolog 12 units before meals Diet Denies any recent changes Breakfast 8-10a, lunch ~12-1p, supper 630-7p GLYCEMIC CONTROL: Glucometer present at visit: Yes Hypoglycemia: Yes CGM Data Past medical history reviewed. ALLERGIES No Known Allergies Current Outpatient Medications Medication Sig Dispense Refill meclizine (ANTIVERT) 25 mg tab Take 1 tablet by mouth three times a day as needed (dizziness). 30 tablet 1 albuterol HFA (VENTOLIN HFA) 90 mcg/actuation inhaler Inhale 2 puffs as instructed every 4 hours as needed for wheezing/shortness of breath (cough). 18 g 3 benzonatate (TESSALON PERLE) 100 mg capsule Take 1-2 capsules by mouth three times a day as needed for cough. 60 capsule 1 ondansetron orally disintegrating (ZOFRAN ODT) 4 mg disintegrating tablet Take 1 tablet by mouth every 6 hours as needed for nausea/vomiting. 20 tablet 0 tamsulosin (FLOMAX) 0.4 mg Take 1 capsule by mouth two times a day. 180 capsule 3 enalapril (VASOTEC) 20 mg tablet Take 1 tablet by mouth two times a day. 180 tablet 3 flash glucose sensor ([employer] LUIZA 2 SENSOR) kit Ust to check blood sugars once daily. Please apply free voucher for 1 sensor, pt to bring in 6 Each 3 insulin aspart U-100 (NOVOLOG FLEXPEN U-100 INSULIN) 100 unit/mL (3 mL) Inject 12 units before breakfast, 12 units before lunch, and 12 units before dinner as directed. Through [employer] Patient Assistance. metoprolol succinate ER (TOPROL XL) 50 mg 24 hr tablet Take 1 tablet by mouth two times a day. 60 tablet 5 gabapentin (NEURONTIN) 300 mg capsule Take 1 capsule by mouth two times a day for 90 days. (Patient not taking: Reported on 02/21/2024) 60 capsule 2 Cholecalciferol, Vitamin D3, 125 mcg (5,000 unit) cap Take 1 capsule by mouth once daily. inulin-chromium picolinate (FIBER SELECT GUMMIES) 2-100 gram-mcg chew Take 1 Dose by mouth once daily. dorzolamide HCl/timolol maleat (DORZOLAMIDE-TIMOLOL OPHTHALMIC) Use 1 Drop in both eyes two times a day. beta-carotene,A,-vits C,E/mins (OCUVITE ORAL) Take 1 tablet by mouth once daily. LATANOPROST, PF, OPHTHALMIC Use 1 Drop in both eyes every morning. simvastatin (ZOCOR) 40 mg tablet Take 1 tablet by mouth daily at bedtime. 90 tablet 3 flash glucose scanning reader ([employer]YLE LUIZA 2 READER) Use to check blood sugars once a day. 1 Each 0 insulin degludec (TRESIBA FLEXTOUCH U-100) 100 unit/mL (3 mL) injection pen Inject 20 Units subcutaneously every morning. Patient Assistance Medication (Patient taking differently: Inject 20 Units subcutaneously daily with dinner. Patient Assistance Medication) semaglutide (OZEMPIC) 1 mg/dose (4 mg/3 mL) pen Inject 1 mg subcutaneously one time a week. glucagon (GVOKE HYPOPEN 2-PACK) 0.5 mg/0.1 mL AutoInjector Use to treat severe hypoglycemic episode as recommend on product labeling. 0.2 mL 3 glucose 4 gram chewable tablet Take 4 tablets by mouth as needed. 30 tablet 2 Insulin [place], Disposable, (BD ULTRA-FINE DONNIE PEN NEEDLE) 32 gauge x 5/32 Use as directed with insulin injections three times daily 100 Each 11 Insulin Syringe-Needle U-100 (BD INSULIN SYRINGE UF II) 0.5 mL 31 gauge x 5/16 syrg Use as directed with insulin injections three times daily 300 Syringe 3 Blood Sugar Diagnostic, Drum (ACCU-CHEK COMPACT TEST) Strp Testing 2-3 times daily (Patient taking differently: 4 strips four times daily.) 306 Strip 3 lancets(FREESTYLE LANCETS) Use as directed. 300 3 COSOPT 2 %-0.5 % EYE DROPS Use in eyes. 0 ASPIRIN 81 MG TAB Take 81 mg by mouth once daily. 0 B COMPLEX CAP Take 1 capsule by mouth once daily. 0 MULTIVITAMIN TAB Take 1 tablet by mouth once daily. 0 No current facility-administered medications for this visit. Pill bottles are not present. Adherence: denies missed dose (more content not included)... Normal [facility] CNOVon 12-31-2024 CNOV Office Visit (FAMPWS ) -- JING MCKEON ([id number]) 1955 M Date Time Provider Department 12/31/24 10:40 AM JUD ALBRIGHT During your visit today, we recorded the following information about you: Pulse Respiration Blood pressure Weight 69/minute 16/minute 136/82 75.3 kg Jud Albright APRN.CNP 12/31/2024 11:28 AM Signed 12/31/2024 Patient presents with: Dizziness: Reoccurrence Recording using [employer] software for draft documentation of the visit was discussed with the patient/authorized hospital insurance representative; all questions welcomed and answered. Patient/authorized hospital insurance representative agreed to proceed SUBJECTIVE: This is a 69 year old, accompanied by that is here today for Above Complaints. Dizziness and Imbalance: - Acute onset of dizziness and imbalance this morning upon getting out of bed. - Similar symptoms to a previous episode of vertigo 1-2 years ago, but without emesis this time. - Continuous feeling of being wobbly and off balance, even when standing still. - Symptoms improve when sitting but worsen with ambulation. - No recent illness or medication changes. - Denies syncope, palpitations, tinnitus, hearing loss, nausea, vision changes, fever, chills, headaches, or hematochezia. - Jing experienced a fall this morning due to imbalance; resumed using a cane for stability. - History of hip fracture a year ago, progressed from walker to cane, but had not used a cane in the past few months until today. PAST MEDICAL HISTORY Diagnosis Date Benign neoplasm of colon BPH without obstruction/lower urinary tract symptoms 04/01/2012 Carpal tunnel syndrome Degeneration of lumbar or lumbosacral intervertebral disc 05/02/2008 Elevated prostate specific antigen (PSA) 07/2023 Essential hypertension, benign Glaucoma Hemorrhage of rectum and anus Hyperplasia of prostate Primary hypertension Pure hypercholesterolemia Gets labs done at [facility] for MIQUEL Siddiqui Type II or unspecified type diabetes mellitus without mention of complication, uncontrolled Continues to follow with MIQUEL Siddiqui CNP/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--gets labs through [facility] Unspecified glaucoma(365.9) ALLERGIES Patient has no known allergies. MEDICATIONS Current Outpatient Medications Medication Sig meclizine (ANTIVERT) 25 mg tab Take 1 tablet by mouth three times a day as needed (dizziness). albuterol HFA (VENTOLIN HFA) 90 mcg/actuation inhaler Inhale 2 puffs as instructed every 4 hours as needed for wheezing/shortness of breath (cough). benzonatate (TESSALON PERLE) 100 mg capsule Take 1-2 capsules by mouth three times a day as needed for cough. ondansetron orally disintegrating (ZOFRAN ODT) 4 mg disintegrating tablet Take 1 tablet by mouth every 6 hours as needed for nausea/vomiting. tamsulosin (FLOMAX) 0.4 mg Take 1 capsule by mouth two times a day. enalapril (VASOTEC) 20 mg tablet Take 1 tablet by mouth two times a day. flash glucose sensor (FREESTYLE LUIZA 2 SENSOR) kit Ust to check blood sugars once daily. Please apply free voucher for 1 sensor, pt to bring in insulin aspart U-100 (NOVOLOG FLEXPEN U-100 INSULIN) 100 unit/mL (3 mL) Inject 12 units before breakfast, 12 units before lunch, and 12 units before dinner as directed. Through [employer] Patient Assistance. metoprolol succinate ER (TOPROL XL) 50 mg 24 hr tablet Take 1 tablet by mouth two times a day. gabapentin (NEURONTIN) 300 mg capsule Take 1 capsule by mouth two times a day for 90 days. (Patient not taking: Reported on 02/21/2024) Cholecalciferol, Vitamin D3, 125 mcg (5,000 unit) cap Take 1 capsule by mouth once daily. inulin-chromium picolinate (FIBER SELECT GUMMIES) 2-100 gram-mcg chew Take 1 Dose by mouth once daily. dorzolamide HCl/timolol maleat (DORZOLAMIDE-TIMOLOL OPHTHALMIC) Use 1 Drop in both eyes two times a day. beta-carotene,A,-vits C,E/mins (OCUVITE ORAL) Take 1 tablet by mouth once daily. LATANOPROST, PF, OPHTHALMIC Use 1 Drop in both eyes every morning. simvastatin (ZOCOR) 40 mg tablet Take 1 tablet by mouth daily at bedtime. flash glucose scanning reader (FREESTYLE LUIZA 2 READER) Use to check blood sugars once a day. insulin degludec (TRESIBA FLEXTOUCH U-100) 100 unit/mL (3 mL) injection pen Inject 20 Units subcutaneously every morning. Patient Assistance Medication (Patient taking differently: Inject 20 Units subcutaneously daily with dinner. Patient Assistance Medication) semaglutide (OZEMPIC) 1 mg/dose (4 mg/3 mL) pen Inject 1 mg subcutaneously one time a week. glucagon (GVOKE HYPOPEN 2-PACK) 0.5 mg/0.1 mL AutoInjector Use to treat severe hypoglycemic episode as recommend on product labeling. glucose 4 gram chewable tablet Take 4 tablets by mouth as needed. Insulin [place], Disposable, (BD ULTRA-FINE DONNIE PEN NEEDLE) 32 gauge x 5/32 Use as directed with insulin injections three times daily Insulin Syringe-Needle U-100 (more content not included)... Normal [facility] JING MCKEON ([id number]) 1955 M Date Time Provider Department 12/31/24 SON ZAMBRANO INTMWS During your visit today, we recorded the following information about you: Dory Angulo RN 12/31/2024 9:27 AM Signed Patient's calling in and reports patient is having a vertigo flare. Having exact same sx's as he has had before when he had vertigo in the past. is requesting vertigo medication for patient/ This nurse advised appt since pt's PCP [facility] is not in the office today, for appropriate evaluation and treatment. agreeable. Appt made with available provider this morning. Dory Angulo RN Allergies As of Date: 12/31/2024 (No Known Allergies) Date Reviewed: 11/17/2024 Reviewed by: Caitlin Limon LPN - Fully Assessed Reason for Visit: Patient Update [1234] Prescriptions as of 12/31/2024 - albuterol HFA (VENTOLIN HFA) 90 mcg/actuation inhaler Inhale 2 puffs as instructed every 4 hours as needed for wheezing/shortness of breath (cough). - benzonatate (TESSALON PERLE) 100 mg capsule Take 1-2 capsules by mouth three times a day as needed for cough. - ondansetron orally disintegrating (ZOFRAN ODT) 4 mg disintegrating tablet Take 1 tablet by mouth every 6 hours as needed for nausea/vomiting. - tamsulosin (FLOMAX) 0.4 mg Take 1 capsule by mouth two times a day. - enalapril (VASOTEC) 20 mg tablet Take 1 tablet by mouth two times a day. - flash glucose sensor (FREESTYLE LUIZA 2 SENSOR) kit Ust to check blood sugars once daily. Please apply free voucher for 1 sensor, pt to bring in - insulin aspart U-100 (NOVOLOG FLEXPEN U-100 INSULIN) 100 unit/mL (3 mL) Inject 12 units before breakfast, 12 units before lunch, and 12 units before dinner as directed. Through [employer] Patient Assistance. - metoprolol succinate ER (TOPROL XL) 50 mg 24 hr tablet Take 1 tablet by mouth two times a day. - gabapentin (NEURONTIN) 300 mg capsule Take 1 capsule by mouth two times a day for 90 days. - Cholecalciferol, Vitamin D3, 125 mcg (5,000 unit) cap Take 1 capsule by mouth once daily. - inulin-chromium picolinate (FIBER SELECT GUMMIES) 2-100 gram-mcg chew Take 1 Dose by mouth once daily. - dorzolamide HCl/timolol maleat (DORZOLAMIDE-TIMOLOL OPHTHALMIC) Use 1 Drop in both eyes two times a day. - beta-carotene,A,-vits C,E/mins (OCUVITE ORAL) Take 1 tablet by mouth once daily. - LATANOPROST, PF, OPHTHALMIC Use 1 Drop in both eyes every morning. - simvastatin (ZOCOR) 40 mg tablet Take 1 tablet by mouth daily at bedtime. - flash glucose scanning reader (FREESTYLE LUIZA 2 READER) Use to check blood sugars once a day. - insulin degludec (TRESIBA FLEXTOUCH U-100) 100 unit/mL (3 mL) injection pen Inject 20 Units subcutaneously every morning. Patient Assistance Medication - semaglutide (OZEMPIC) 1 mg/dose (4 mg/3 mL) pen Inject 1 mg subcutaneously one time a week. - meclizine (ANTIVERT) 25 mg tab Take 1 tablet by mouth three times daily as needed (dizziness). - glucagon (GVOKE HYPOPEN 2-PACK) 0.5 mg/0.1 mL AutoInjector Use to treat severe hypoglycemic episode as recommend on product labeling. - glucose 4 gram chewable tablet Take 4 tablets by mouth as needed. - Insulin [place], Disposable, (BD ULTRA-FINE DONNIE PEN NEEDLE) 32 gauge x 5/ Use as directed with insulin injections three times daily - Insulin Syringe-Needle U-100 (BD INSULIN SYRINGE UF II) 0.5 mL 31 gauge x 5/16 syrg Use as directed with insulin injections three times daily - Blood Sugar Diagnostic, Drum (ACCU-CHEK COMPACT TEST) Strp Testing 2-3 times daily - lancets(FREESTYLE LANCETS) Use as directed. - COSOPT 2 %-0.5 % EYE DROPS Use in eyes. - ASPIRIN 81 MG TAB Take 81 mg by mouth once daily. - B COMPLEX CAP Take 1 capsule by mouth once daily. - MULTIVITAMIN TAB Take 1 tablet by mouth once daily. Problem List As Of Date 12/31/2024 Noted Resolved Diabetes mellitus (HCC) [E11.9] 11/17/2015 Primary hypertension [I10] PURE HYPERCHOLESTEROLEM [E78.00] CARPAL TUNNEL SYNDROME [G56.00] GLAUCOMA NOS [H40.9] RECTAL AND ANAL HEMORRHAGE [K62.5] BENIGN NEOPLASM LG BOWEL [D12.6] 02/18/2007 GASTROINTEST HEMORR NOS [K92.2] 02/18/2007 INT HEMORRHOID W/O COMPL [K64.8] 02/18/2007 LUMB/LUMBOSAC DISC DEGEN [M51.379] 05/02/2008 SCIATICA [M54.30] 08/31/2008 BPH with obstruction/lower urinary tract sympto*02/12/2012 Type 2 diabetes mellitus with microalbuminuria,*11/17/19 16 History of colonic polyps [Z86.0100] 05/23/2017 Diverticulosis of large intestine without hemor*05/23/2017 Colon cancer screening [Z12.11] 12/07/2023 Encounter Status:Closed by DORY ANGULO on 12/31/24 Normal [facility] Comprehensive metabolic 2000 panelon 12-30-2024 Albumin [Mass/Vol] 4.0 g/dL Normal 3.9-4.9 [facility] Comment on above: Order Comment: Speci men Type: BLOOD SPECIMENOrdering Facility: [facility] Address: [address] [id number] Performed By: #### 2 4323-8, 33316-7 ####[facility] LABCLIA [id number] [place] [id number] [place] ALP [Catalytic activity/Vol] 123 U/L High 38-113 [facility] Comment on above: Order Comment: Speci men Type: BLOOD SPECIMENOrdering Facility: [facility] Address: [address] [place], [place] [address] Performed By: #### 2 4323-8, 61131-8 ####[facility] LABCLIA [id number] [place] [address] [place] ALT [Catalytic activity/Vol] 21 U/L Normal 10-54 [facility] Comment on above: Order Comment: Speci men Type: BLOOD SPECIMENOrdering Facility: [facility] Address: [address] [place] [address] Performed By: #### 2 4323-8, 31254-3 ####[facility] LABCLIA [id number] [place] [address] [place] Anion gap [Moles/Vol] 8 mmol/L Normal 8-15 [facility] Comment on above: Order Comment: Speci men Type: BLOOD SPECIMENOrdering Facility: [facility] Address: [address] [place], [place] [address] Performed By: #### 2 4323-8, 91001-5 ####[facility] LABCLIA [id number] [place] [id number] [place] AST [Catalytic activity/Vol] 25 U/L Normal 14-40 [facility] Comment on above: Order Comment: Speci men Type: BLOOD SPECIMENOrdering Facility: [facility] Address: [address] [place], [place] [address] Performed By: #### 2 4323-8, 48833-8 ####[facility] LABCLIA [id number] [facility] [address] [address] [place] Bilirubin [Mass/Vol] 0.4 mg/dL Normal 0.2-1.3 [facility] Comment on above: Order Comment: Speci men Type: BLOOD SPECIMENOrdering Facility: [facility] Address: [address] [place] [address] Performed By: #### 2 4323-8, 62421-8 ####[facility] LABCLIA [id number] [facility] [place] [address] [place] Calcium [Mass/Vol] 9.4 mg/dL Normal 8.5-10.2 [facility] Comment on above: Order Comment: Speci men Type: BLOOD SPECIMENOrdering Facility: [facility] Address: [address] [place] [address] Performed By: #### 2 4323-8, 76809-3 ####[facility] LABCLIA [id number] [facility] [place] [address] [place] Chloride [Moles/Vol] 105 mmol/L Normal 98-107 [facility] Comment on above: Order Comment: Speci men Type: BLOOD SPECIMENOrdering Facility: [facility] Address: [address] [place] [address] Performed By: #### 2 4323-8, 89930-4 ####[facility] LABCLIA [id number] [facility] [place] [address] [place] CO2 [Moles/Vol] 26 mmol/L Normal 22-30 [facility] Comment on above: Order Comment: Speci men Type: BLOOD SPECIMENOrdering Facility: [facility] Address: [address] [place] [address] Performed By: #### 2 4323-8, 43162-9 ####[facility] LABCLIA [id number] [facility] [place] [id number] [place] Creatinine [Mass/Vol] 0.67 mg/dL Low 0.73-1.22 [facility] Comment on above: Order Comment: Marivel garcia Type: BLOOD SPECIMENOrdering Facility: [facility] Address: [address] [place] [address] Performed By: #### 2 4323-8, 00666-3 ####[facility] LABCLIA [id number] [place] [address] [place] Creatinine and Glomerular filtration rate.predicted panel (S/P/Bld) 100 mL/min/1.73m??? Normal >=60 [facility] Comment on above: Order Comment: Marivel garcia Type: BLOOD SPECIMENOrdering Facility: [facility] Address: [address] [place] [address] Result Comment: Kia mated Glomerular Filtration Rate (eGFR) is calculated using the 2020 CKD-EPI creatinine equation. This equation utilizes serum creatinine, sex, and age as parameters. The creatinine assay has traceable calibration to isotope dilution-mass spectrometry. Refer to KDIGO guidelines for clinical interpretation. In patients with unstable renal function, e.g. those with acute kidney injury, the eGFR may not accurately reflect actual GFR. Performed By: #### 2 4323-8, 43158-9 ####[facility] LABCLIA [id number] [place] [address] [place] Glucose [Mass/Vol] 185 mg/dL High 74-99 [facility] Comment on above: Order Comment: Marivel garcia Type: BLOOD SPECIMENOrdering Facility: [facility] Address: [address] [place] [address] Result Comment: The [place] Diabetes Association (ADA) provides guidance for cutoff values for fasting glucose and random glucose. The ADA defines fasting as no caloric intake for at least 8 hours. Fasting plasma glucose results between 100 to 125 [...] Standards of Medical Care in Diabetes 2016, [place] Diabetes Association. Diabetes Care. 2016.39(Suppl 1). Performed By: #### 2 4323-8, 15585-3 ####[facility] LABCLIA [id number] [address] [address] [place] Potassium [Moles/Vol] 4.5 mmol/L Normal 3.7-5.1 [facility] Comment on above: Order Comment: Speci men Type: BLOOD SPECIMENOrdering Facility: [facility] Address: [address] [place], [place] [address] Performed By: #### 2 4323-8, 19598-2 ####[facility] LABCLIA [id number] [place] [id number] [place] Protein [Mass/Vol] 7.0 g/dL Normal 6.3-8.0 [facility] Comment on above: Order Comment: Speci men Type: BLOOD SPECIMENOrdering Facility: [facility] Address: [address] [place], [place] [address] Performed By: #### 2 4323-8, 19642-7 ####[facility] LABIA [id number] [address] [address] [place] Sodium [Moles/Vol] 139 mmol/L Normal 136-144 [facility] Comment on above: Order Comment: Speci men Type: BLOOD SPECIMENOrdering Facility: [facility] Address: [address] [place] [address] Performed By: #### 2 4323-8, 39618-0 ####[facility] LABCLIA [id number] [address] [address] [place] Urea nitrogen [Mass/Vol] 17 mg/dL Normal 9-24 [facility] Comment on above: Order Comment: Speci men Type: BLOOD SPECIMENOrdering Facility: [facility] Address: [address] [place] [address] Performed By: #### 2 4323-8, 35084-9 ####[facility] LABCLIA [id number] [place] [id number] [place] Free PSA [Mass/Vol]on 2024 Free PSA/Total PSA [Mass fraction] 36 % Normal [facility] Comment on above: Order Comment: Speci men Type: BLOOD SPECIMENOrdering Facility: [facility] Address: [address] [place] [address] Result Comment: Tota l and free PSA test methodology used is the Electrochemiluminescence Immunoassay by [employer]. Total or free PSA values by differing methodologies cannot be interchanged. The below table lists the probability of finding prostate cancer upon needle biopsy, for men 50 years or older and total PSA concentrations from 4.0-10.0 ng/mL. Results should be interpreted within the broader clinical context. Free PSA(%) 50-59 years 60-69 years >69 years <11 49.2% 57.5% 64.5% 11-18 26.9% 33.9% 40.8% 19-25 18.3% 23.9% 29.7% >25 9.1% 12.2% 15.8% Performed By: #### 2 4323-8, 01759-0 ####[facility] LABCLIA [id number] [address] [address] [place] Prostate specific Ag [Mass/Vol] 6.53 ng/mL High <2.60 [facility] Comment on above: Order Comment: Speci men Type: BLOOD SPECIMENOrdering Facility: [facility] Address: [address] [place] [address] Result Comment: Tota l PSA test methodology used is the Electrochemiluminescence Immunoassay by [employer]. Total PSA values by differing methodologies cannot be interchanged. For an individual patient, the significance of a PSA level should be interpreted in a broad clinical context, including age, race, family history, digital rectal exam, prostate size, results of prior testing (prostate biopsy, free PSA, PCA3), and use of 5-alpha reductase inhibitors. Considering the high incidence of asymptomatic cancer in the general population that may not pose an ultimate risk to a patient, the decision to recommend urological evaluation or prostate biopsy should be individualized after consideration of all these factors. REFERENCE: Neda Laird M.D., M.P.H., Paul Guzmán M.D., Ph.D., Jeancarlos Del Valle M.D., Michele Zelaya M.P.H., Kiana Segovia Sc.D. Effect of Verification Bias on Screening for Prostate Cancer by Measurement of Prostatic Specific Antigen. N Engl J Med 2003,349:335-42. Performed By: #### 2 4323-8, 09653-5 ####[facility] LABCLIA [id number] [place] [address] [place] HbA1c (Bld)on 12-30-2024 Average glucose Estimated from glycated hemoglobin (Bld) [Mass/Vol] 189 mg/dL Normal [facility] Comment on above: Order Comment: Speci men Type: BLOOD SPECIMENOrdering Facility: [facility] Address: [address] [place] [address] Result Comment: eAG: (Estimated average glucose) is a calculated value from HgbA1c and is hospital insurance representative of the average blood glucose level in the last 2-3 month period. Performed By: #### 5 5454-3 ####[facility] LABCLIA [id number] [place] [address] [place] HbA1c (Bld) [Mass fraction] 8.2 % High 4.3-5.6 [facility] Comment on above: Order Comment: Speci men Type: BLOOD SPECIMENOrdering Facility: [facility] Address: [address] [place] [address] Result Comment: Amer [place] Diabetes Association guidelines indicate that patients with HgbA1c in the range 5.7-6.4% are at increased risk for development of diabetes, and intervention by lifestyle modification may be beneficial. HgbA1c greater or equal to 6.5% is considered diagnostic of diabetes. Performed By: #### 5 5454-3 ####[facility] LABCLIA [id number] [place] [id number] [facility] Inocencia 12-26-2024 CNPN Telephone (INTMWS) -- JING MCKEON ([id number]) 1955 M Date Time Provider Department 12/26/24 SON ZAMBRANO INTMWS During your visit today, we recorded the following information about you: David Mancini RN 12/26/2024 9:46 AM Signed Pts called in trying to get Pts Flomax refilled. I let her know it was just called in on 11/03/24, and it would be good through 11/03/25. I let her know he could have been using an old bottle and may not have started the new RX. David Mancini RN Allergies As of Date: 12/26/2024 (No Known Allergies) Date Reviewed: 11/17/2024 Reviewed by: Caitlin Limon LPN - Fully Assessed Reason for Visit: Patient Question [9467] Prescriptions as of 12/26/2024 - albuterol HFA (VENTOLIN HFA) 90 mcg/actuation inhaler Inhale 2 puffs as instructed every 4 hours as needed for wheezing/shortness of breath (cough). - benzonatate (TESSALON PERLE) 100 mg capsule Take 1-2 capsules by mouth three times a day as needed for cough. - ondansetron orally disintegrating (ZOFRAN ODT) 4 mg disintegrating tablet Take 1 tablet by mouth every 6 hours as needed for nausea/vomiting. - tamsulosin (FLOMAX) 0.4 mg Take 1 capsule by mouth two times a day. - enalapril (VASOTEC) 20 mg tablet Take 1 tablet by mouth two times a day. - flash glucose sensor (FREESTYLE LUIZA 2 SENSOR) kit Ust to check blood sugars once daily. Please apply free voucher for 1 sensor, pt to bring in - insulin aspart U-100 (NOVOLOG FLEXPEN U-100 INSULIN) 100 unit/mL (3 mL) Inject 12 units before breakfast, 12 units before lunch, and 12 units before dinner as directed. Through [employer] Patient Assistance. - metoprolol succinate ER (TOPROL XL) 50 mg 24 hr tablet Take 1 tablet by mouth two times a day. - gabapentin (NEURONTIN) 300 mg capsule Take 1 capsule by mouth two times a day for 90 days. - Cholecalciferol, Vitamin D3, 125 mcg (5,000 unit) cap Take 1 capsule by mouth once daily. - inulin-chromium picolinate (FIBER SELECT GUMMIES) 2-100 gram-mcg chew Take 1 Dose by mouth once daily. - dorzolamide HCl/timolol maleat (DORZOLAMIDE-TIMOLOL OPHTHALMIC) Use 1 Drop in both eyes two times a day. - beta-carotene,A,-vits C,E/mins (OCUVITE ORAL) Take 1 tablet by mouth once daily. - LATANOPROST, PF, OPHTHALMIC Use 1 Drop in both eyes every morning. - simvastatin (ZOCOR) 40 mg tablet Take 1 tablet by mouth daily at bedtime. - flash glucose scanning reader ([employer] LUIZA 2 READER) Use to check blood sugars once a day. - insulin degludec (TRESIBA FLEXTOUCH U-100) 100 unit/mL (3 mL) injection pen Inject 20 Units subcutaneously every morning. Patient Assistance Medication - semaglutide (OZEMPIC) 1 mg/dose (4 mg/3 mL) pen Inject 1 mg subcutaneously one time a week. - meclizine (ANTIVERT) 25 mg tab Take 1 tablet by mouth three times daily as needed (dizziness). - glucagon (GVOKE HYPOPEN 2-PACK) 0.5 mg/0.1 mL AutoInjector Use to treat severe hypoglycemic episode as recommend on product labeling. - glucose 4 gram chewable tablet Take 4 tablets by mouth as needed. - Insulin [place], Disposable, (BD ULTRA-FINE DONNIE PEN NEEDLE) 32 gauge x 5/32 Use as directed with insulin injections three times daily - Insulin Syringe-Needle U-100 (BD INSULIN SYRINGE UF II) 0.5 mL 31 gauge x 5/16 syrg Use as directed with insulin injections three times daily - Blood Sugar Diagnostic, Drum (ACCU-CHEK COMPACT TEST) Strp Testing 2-3 times daily - lancets(FREESTYLE LANCETS) Use as directed. - COSOPT 2 %-0.5 % EYE DROPS Use in eyes. - ASPIRIN 81 MG TAB Take 81 mg by mouth once daily. - B COMPLEX CAP Take 1 capsule by mouth once daily. - MULTIVITAMIN TAB Take 1 tablet by mouth once daily. Problem List As Of Date 12/26/2024 Noted Resolved Diabetes mellitus (HCC) [E11.9] 11/17/2015 Primary hypertension [I10] PURE HYPERCHOLESTEROLEM [E78.00] CARPAL TUNNEL SYNDROME [G56.00] GLAUCOMA NOS [H40.9] RECTAL AND ANAL HEMORRHAGE [K62.5] BENIGN NEOPLASM LG BOWEL [D12.6] 02/18/2007 GASTROINTEST HEMORR NOS [K92.2] 02/18/2007 INT HEMORRHOID W/O COMPL [K64.8] 02/18/2007 LUMB/LUMBOSAC DISC DEGEN [M51.379] 05/02/2008 SCIATICA [M54.30] 08/31/2008 BPH with obstruction/lower urinary tract sympto*02/12/2012 Type 2 diabetes mellitus with microalbuminuria,*11/17/19 16 History of colonic polyps [Z86.0100] 05/23/2017 Diverticulosis of large intestine without hemor*05/23/2017 Colon cancer screening [Z12.11] 12/07/2023 Encounter Status:Closed by DAVID [facility] (INTMWS) -- JING MCKEON ([id number]) 1955 M Date Time Provider Department 12/23/24 SON ZAMBRANO INTMWS During your visit today, we recorded the following information about you: Ami Young LPN 12/23/2024 12:20 PM Signed 1.Rec'd 5 boxes of mike fine 32Gtip 100 needles in each box Lot number [id number] exp date 04/21/29 2. Rec'd 4 boxes of ozempic 1mg/dose 4mg/3ml pen lot number [id number] exp date 05/22/27 3. 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 Pt notified. Ami Young LPN 12/24/2024 3:53 PM Addendum Pt noted the novalog vials were sent. This is to be flex pens. Pt doesn't want the vials. In review pt is correct per application it notes to be flex pens. Called [employer]. [facility] will fax to this office a return shipping label.to be rec'd in 3-5 business days. They will send to the pharmacy the novolog flex pens to be rec'd in 10-14 days. Pt says he can wait for the novolog flex pens. He has enough. Everything else was picked up. Ami Young LPN 01/07/2025 10:09 AM Signed Called [facility] [employer] again. They will request another shipping label as the one requested was not rec'd. They report the novolog flex pen was processed 01/05/25 and should be rec'd 01/26/25 or 01/27/25. Ami Young LPN 01/29/2025 10:57 AM Signed Rec'd 3 boxes of novolog flexpens u100. Lot number Exp date 02/19/27 Ami Young LPN 01/29/2025 2:10 PM Signed Pt has picked up the novolog flexpen. Called [facility] to request a return label for the novolog vials. Ami Young LPN 02/24/2025 2:58 PM Signed No return label rec'd this was the novolog vial was discard. Allergies As of Date: 12/23/2024 (No Known Allergies) Date Reviewed: 11/17/2024 Reviewed by: Caitlin Limon LPN - Fully Assessed Reason for Visit: pt assistance rec'd from [employer] [Other] Prescriptions as of 02/24/2025 - insulin degludec (TRESIBA FLEXTOUCH U-100) 100 unit/mL (3 mL) injection pen Inject 20 Units subcutaneously every morning. [employer] Patient Assistance Medication - semaglutide (OZEMPIC) 1 mg/dose (4 mg/3 mL) pen Inject 1 mg subcutaneously one time a week. [employer] PAP. Do not send to pharmacy - patient receives through patient assistance program. For medication order changes (med, dose, frequency) please route to [facility]. - Tadalafil (CIALIS) 20 mg tablet Take 1 tablet by mouth once daily as needed. Take 1-2 hours before sexual activity. - insulin aspart U-100 (NOVOLOG FLEXPEN U-100 INSULIN) 100 unit/mL (3 mL) Inject 10 units before breakfast, 10 units before lunch, and 10 units before dinner as directed. Through [employer] Patient Assistance. - meclizine (ANTIVERT) 25 mg tab Take 1 tablet by mouth three times a day as needed (dizziness). - albuterol HFA (VENTOLIN HFA) 90 mcg/actuation inhaler Inhale 2 puffs as instructed every 4 hours as needed for wheezing/shortness of breath (cough). - benzonatate (TESSALON PERLE) 100 mg capsule Take 1-2 capsules by mouth three times a day as needed for cough. - ondansetron orally disintegrating (ZOFRAN ODT) 4 mg disintegrating tablet Take 1 tablet by mouth every 6 hours as needed for nausea/vomiting. - tamsulosin (FLOMAX) 0.4 mg Take 1 capsule by mouth two times a day. - enalapril (VASOTEC) 20 mg tablet Take 1 tablet by mouth two times a day. - flash glucose sensor (FREESTYLE LUIZA 2 SENSOR) kit Ust to check blood sugars once daily. Please apply free voucher for 1 sensor, pt to bring in - metoprolol succinate ER (TOPROL XL) 50 mg 24 hr tablet Take 1 tablet by mouth two times a day. - gabapentin (NEURONTIN) 300 mg capsule Take 1 capsule by mouth two times a day for 90 days. - Cholecalciferol, Vitamin D3, 125 mcg (5,000 unit) cap Take 1 capsule by mouth once daily. - inulin-chromium picolinate (FIBER SELECT GUMMIES) 2-100 gram-mcg chew Take 1 Dose by mouth once daily. - dorzolamide HCl/timolol maleat (DORZOLAMIDE-TIMOLOL OPHTHALMIC) Use 1 Drop in both eyes two times a day. - beta-carotene,A,-vits C,E/mins (OCUVITE ORAL) Take 1 tablet by mouth once daily. - LATANOPROST, PF, OPHTHALMIC Use 1 Drop in both eyes every morning. - simvastatin (ZOCOR) 40 mg tablet Take 1 tablet by mouth daily at bedtime. - flash glucose scanning reader ([employer] LUIZA 2 READER) Use to check blood sugars once a day. - glucagon (GVOKE HYPOPEN 2-PACK) 0.5 mg/0.1 mL AutoInjector Use to treat severe hypoglycemic episode as recommend on product labeling. - glucose 4 gram chewable tablet Take 4 tablets by mouth as needed. - Insulin [place], Disposable, (BD ULTRA-FINE DONNIE PEN NEEDLE) 32 gauge x (more content not included)... Normal [facility] CNOVon 11-17-2024 CNOV Office Visit (INTMWS ) -- JING MCKEON ([id number]) 1955 M Date Time Provider Department 11/17/24 11:20 AM JOSSY CARUSO INTMWS During your visit today, we recorded the following information about you: Temperature Pulse Respiration Blood pressure 98.6 degrees 86/minute 16/minute 137/66 Weight 75 kg Jossy Caruso APRN.[facility] SCOUT 11/17/2024 11:57 AM Signed SUBJECTIVE Jing Castaneda Mike is a 69 year old male who presents with 4 days of symptoms that are stable. Symptoms include: Fever (>=100.4F): Yes perceived or Chills: Yes Cough: Yes difficult to control, some wheezing, some purulent sputum Shortness of breath: No or Difficulty breathing: No Fatigue: Yes Muscle aches: No Headache: No New loss of smell or taste: No Sore throat: Yes Nasal congestion: No or Rhinorrhea: No Nausea: Yes or Vomiting: Yes x 1 with coughing Diarrhea: No, 1 loose stool per day Acute Cough and Wheezing: - Onset , progressively worsening over the weekend. - Intermittent coughing spells, difficult to control. - Wheezing noted during coughing episodes. - Coughing spells cause dyspnea; denies dyspnea otherwise. - Coughing episodes disrupt sleep. - Using NyQuil, Tylenol, and Mucinex with minimal relief. - Denies smoking. - Has an albuterol inhaler at home but has not used it recently. Nausea and Vomiting: - Nausea x3 days. - Vomited once this morning after eating breakfast and lying down, triggered by coughing. - Decreased appetite; maintaining adequate hydration. Diarrhea: - Loose stools x3 days, 1 bowel movement per day. - No bowel movement today. Sore Throat: - Mild sore throat. - Denies sinus drainage or congestion. Fatigue: - Reports feeling fatigued. - Denies headaches or myalgias. Diabetes Mellitus: - Holding diabetes medications when not eating to prevent hypoglycemia. OTC meds/remedies that patient has tried: acetaminophen, Mucinex, and OTC cold medicine. High risk category assessment Age > 60 years old Diabetes Exposures: Sick contacts? Yes Family or close contacts with confirmed/probable COVID-19 in last 14 days? No He reports that he has never smoked. He has never used smokeless tobacco. ROS Constitutional: (-) fever, (+) night sweats, (+) fatigue Head: (-) headache Ears/Nose/Mouth/Throat: (+) sore throat, (-) congestion Respiratory: (+) cough, (+) wheezing, (+) shortness of breath Gastrointestinal: (+) nausea, (+) vomiting, (+) diarrhea Musculoskeletal: (-) myalgia OBJECTIVE PHYSICAL EXAM: BP 137/66 Pulse 86 Temp 37 ?C (98.6 ?F) Resp 16 Wt 75 kg (165 lb 5.5 oz) SpO2 96% BMI 25.90 kg/m? General appearance: tired/ill appearing, alert, cooperative, pleasant, in no acute distress Head: Normocephalic Eyes: conjunctiva/corneas normal Ears: R TM - clear with good landmarks, nl light reflex, L TM - clear with good landmarks, nl light reflex Nose: clear rhinorrhea Oropharynx: moist without lesions, mild erythema to GPA, no exudate Neck: supple and small, benign anterior cervical nodes bilaterally Heart: regular rate and rhythm, without murmur Lungs: clear to auscultation, without rales or wheeze, good air exchange ASSESSMENT/PLAN (J32.9, J40) Sinobronchitis (primary encounter diagnosis) (J98.01) Bronchospasm (R11.0) Nausea (E11.9) Type 2 diabetes mellitus without complication, unspecified whether half-way insulin use (HCC) Use your albuterol inhaler every 4 to 6 hours when you experience wheezing, coughing spells, or shortness of breath. Take the prescribed cough suppressant pill as directed to help manage severe coughing episodes. Begin taking the nausea medicine around the clock for a couple of days until your stomach settles and you can keep food down. Continue using your current cold medicines (such as NyQuil, Tylenol, and Mucinex) if they seem to be helping. Follow your usual routine with your diabetes medications by not taking them when you are not eating, to avoid low blood sugar. Monitor your symptoms closely. If you are not feeling better or if your symptoms worsen within about a week from start of illness, please call our office. Jossy Caruso APRN.CAVALRY SCOUT Medical Decision Making: Problems: Low: Acute, uncomplicated illness or injury Risk: Moderate: Drug management Medical Decision Making Level: 3 - Jossy Keith APRN.CAVALRY SCOUT 11/17/2024 11:52 AM Signed Use your albuterol inhaler every 4 to 6 hours when you experience wheezing, coughing spells, or shortness of breath. Take the prescribed cough suppressant pill as directed to help manage severe coughing episodes. Begin taking the nausea medicine around the clock for a couple of days until your stomach settles and you can keep food down. Continue using your current cold medicines (such as NyQuil, Tylenol, and Mucinex) if they seem to be helping. Follow your usual (more content not included)... Normal [facility] CNOVon 11-03-2024 CNOV Office Visit (UROLWS ) -- JING MCKEON ([id number]) 1955 M Date Time Provider Department 11/03/24 9:30 AM MARCELLA GEE UROMICHAEL During your visit today, we recorded the following information about you: Temperature Pulse Respiration Blood pressure 97.7 degrees 84/minute 14/minute 130/74 Weight Height 77.6 kg 1.702 m Michele Waller LPN 11/03/2024 10:18 AM Signed Verified name and date of . CC Post Void Residual HPI: Lottie rao is here now for an appointment with Rodolfo Crisostomo APRN, DNP Procedure: Explained procedure to patient and verbalizes understanding. Performed a PVR. Patient urinated and instructed to empty bladder as much as possible just prior to having PVR done using bladder ultrasound scanner. Results of scan: 15 mL The patient tolerated the procedure well. Plan: Appointment with Marcella Bermudez APRN.LIZZ JACINTO 11/03/2024 10:18 AM Signed [facility] PSA/PROSTATE EVALUATION HISTORY AND PHYSICAL EXAM PATIENT: Jing Mckeon (68 year old) 09/17/2023 PCP: Son Zambrano MD REFERRING Provider: Mary Witt APRN.YARD WORKER ====== Consultation requested by Dr. Mary Witt [address] [facility] [address] for an opinion regarding elevated PSA and my final recommendations will be communicated back to the requesting physician by way of shared Medical record or letter via US mail. CC: Elevated PSA HPI: The patient is 68 year old and is referred for evaluation of elevated PSA. Last PSA was noted to be 6.30 ng/mL. Prior studies include 6.91. Hx of BPH: On Flomax 0.8mg. Has been on Flomax for 10+ years. CT of pelvis from 2005 shows: The prostate is enlarged measuring approximately 4.1 x 6.2 cm in the axial plane. PSA was elevated. MRI of prostate in April 2024 was negative for mass or lesion. Size of prostate on the MRI: Prostate: 6.3 x 5.6 x 5.5 cm, Gland volume: 93 cc. No fhx of cancers - Renal, bladder or prostate Today: The patient has been experiencing symptoms of BPH and is currently taking Flomax, 2 capsules daily, one in the morning and one at bedtime, which has improved his symptoms. . Recent MRI results showed no evidence of mass or lesion, and the elevated PSA levels are attributed to the size of the prostate. The patient expresses a preference for not adding another medication, such as finasteride, and is open to consulting with a specialist about minimally invasive surgical options. URINARY: PRESENTING HISTORY: Hematuria: none Urinary retention: no Urinary incontinence: no Urinary tract infection: no Patient Entered Questionnaires: PROMIS Global Health Percentiles provide an indication of how the patient's score ranks in relation to the general population. Higher percentile rankings indicate better function/quality of life. 50th percentile is the average of the general population and indicates half of respondents had a worse score. INTERNATIONAL PROSTATE SYMPTOM SCORE (I-PSS) PREVIOUS TOTAL IPSS SCORE: 18 QOL = 4 1. Incomplete emptying 3 2. Frequency 4 3. Intermittency 1 4. Urgency 0 5. Weak stream 0 6. Straining 0 7. Nocturia 1 TOTAL IPSS SCORE 9 QOL = 2 MEDICATIONS: Current Outpatient Medications Medication Sig enalapril (VASOTEC) 20 mg tablet Take 1 tablet by mouth two times a day. flash glucose sensor (FREESTYLE LUIZA 2 SENSOR) kit Ust to check blood sugars once daily. Please apply free voucher for 1 sensor, pt to bring in insulin aspart U-100 (NOVOLOG FLEXPEN U-100 INSULIN) 100 unit/mL (3 mL) Inject 12 units before breakfast, 12 units before lunch, and 12 units before dinner as directed. Through [employer] Patient Assistance. metoprolol succinate ER (TOPROL XL) 50 mg 24 hr tablet Take 1 tablet by mouth two times a day. Cholecalciferol, Vitamin D3, 125 mcg (5,000 unit) cap Take 1 capsule by mouth once daily. inulin-chromium picolinate (FIBER SELECT GUMMIES) 2-100 gram-mcg chew Take 1 Dose by mouth once daily. dorzolamide HCl/timolol maleat (DORZOLAMIDE-TIMOLOL OPHTHALMIC) Use 1 Drop in both eyes two times a day. beta-carotene,A,-vits C,E/mins (OCUVITE ORAL) Take 1 tablet by mouth once daily. LATANOPROST, PF, OPHTHALMIC Use 1 Drop in both eyes every morning. simvastatin (ZOCOR) 40 mg tablet Take 1 tablet by mouth daily at bedtime. flash glucose scanning reader ([employer] LUIZA 2 READER) Use to check blood sugars once a day. insulin degludec (TRESIBA FLEXTOUCH U-100) 100 unit/mL (3 mL) injection pen Inject 20 Units subcutaneously every morning. Patient Assistance Medication (Patient taking differently: Inject 20 Units subcutaneously daily with dinner. Patient Assistance Medication) semaglutide (OZEMPIC) 1 mg/dose (4 mg/3 mL) pen Inject 1 mg subcutaneously one time a week. meclizine (ANTIVERT) 25 mg tab Take 1 tablet by mouth three times daily as needed (dizzine (more content not included)... Normal [facility] UA DIP, URINE (POC)on 2024 BILIRUBIN UA (POCT) Negative Negative [facility] CLARITY UA (POCT) Clear [facility] COLOR UA (POCT) Yellow [facility] GLUCOSE UA (POCT) Negative Negative mg/dL [facility] Hemoglobin Ql (U) Negative Negative [facility] KETONE UA (POCT) Negative Negative mg/dL [facility] LEUKOCYTES UA (POCT) Negative Negative [facility] NITRITE UA (POCT) Negative Negative [facility] PH UA (POCT) 5.5 4.5 - 8.0 [facility] Protein Ql (U) Negative Negative mg/dL [facility] SPECIFIC GRAVITY UA (POCT) 1.025 1.005 - 1.030 [facility] UROBILINOGEN UA (POCT) 0.2 Normal E.U./dL [facility] Location:[facility], [address], [place], [place], [id number] [place] [address] POINT OF [facility] 25(OH)D3 SerPl-ncon 2024 25-hydroxyvitamin D3 [Mass/Vol] 39.2 ng/mL Normal 31.0-80.0 [facility] Comment on above: Order Comment: Speci men Type: BLOOD SPECIMENOrdering Facility: [facility] Address: [address] [place] [address] Result Comment: Clas sification of 25 [place] Vitamin D status: Deficiency/Insufficiency: < or = 30 ng/ml. Sufficiency/Optimal Levels: 31-80 ng/mL Toxicity: > 100 ng/mL. Test performed by chemiluminescent immunoassay. Performed By: #### 1 989-3 ####[facility] LABCLIA [id number] [place] [address] [place] ALBUMIN/CREATININE RATIO, UR INEon 10-22-2024 Albumin DL <= 20 mg/L (U) [Mass/Vol] 77.0 mg/L Normal [facility] Comment on above: Order Comment: Speci men Type: URINE SPECIMENOrdering Facility: [facility] Address: [address] [place] [address] Performed By: #### U ACR ####[facility] LABIA [id number] [place] [address] [place] Albumin/Creatinin e (U) [Mass ratio] 55 mg/g High <30 [facility] Comment on above: Order Comment: Speci men Type: URINE SPECIMENOrdering Facility: [facility] Address: [address] [place] [address] Result Comment: Adul t Male and Female Nephrotic Criteria: <30 mg/g is considered normal to mildly increased 30-300 mg/g is considered moderately increased >300 mg/g is considered severely increased KDIGO. (2013). KDIGO 2012 Clinical Practice Guideline for the Evaluation and Management of Chronic Kidney Disease. Official Journal of the International Society of Nephrology, 3(1), 1-150. Performed By: #### U ACR ####[facility] LABCLIA [id number] [address] [address] [place] Creatinine (U) [Mass/Vol] 138.9 mg/dL Normal 20.0-300.0 [facility] Comment on above: Order Comment: Speci men Type: URINE SPECIMENOrdering Facility: [facility] Address: [address] [place] [address] Performed By: #### U ACR ####[facility] LABCLIA [id number] [place] [address] [place] ALKALINE PHOSPHATASE ISOENZY MES (P)on 10-22-2024 ALK PHOS BONE % 39.7 % Normal 10.7-68.3 [facility] Comment on above: Order Comment: Speci men Type: BLOOD SPECIMENOrdering Facility: [facility] Address: [address] [place] [address] Performed By: #### A LKISOP ####[facility] LABCLIA [id number] [address] [place] ALK PHOS LIVER % 48.9 % Normal 26.0-86.2 [facility] Comment on above: Order Comment: Speci men Type: BLOOD SPECIMENOrdering Facility: [facility] Address: [address] [place] [address] Performed By: #### A LKISOP ####[facility] LABCLIA [id number] [place] [address] [place] BONE FRACTION 50.8 U/L Normal 12.9-52.6 [facility] Comment on above: Order Comment: Speci men Type: BLOOD SPECIMENOrdering Facility: [facility] Address: [address] [place] [address] Performed By: #### A LKISOP ####[facility] LABCLIA [id number] [place] [address] [place] INTESTINE FRACTION 14.6 U/L Normal 0.0-16.3 [facility] Comment on above: Order Comment: Speci men Type: BLOOD SPECIMENOrdering Facility: [facility] Address: [address] [place] [address] Performed By: #### A LKISOP ####[facility] [id number] [place] [address] [place] LIVER FRACTION 62.6 U/L Normal 16.0-69.3 [facility] Comment on above: Order Comment: Speci men Type: BLOOD SPECIMENOrdering Facility: [facility] Address: [address] [place] [address] Performed By: #### A LKISOP ####[facility] [id number] [place] [address] [place] Neutrophils/100 WBC (Bld) 11.4 % Normal 0.0-24.2 [facility] Comment on above: Order Comment: Speci men Type: BLOOD SPECIMENOrdering Facility: [facility] Address: [address] [place] [address] Performed By: #### A LKISOP ####[facility] [id number] [place] [address] [place] ALP SerPl-cCncon 10-22-2024 ALP [Catalytic activity/Vol] 128 U/L High 38-113 [facility] Comment on above: Order Comment: Speci men Type: BLOOD SPECIMENOrdering Facility: [facility] Address: [address] [place] [address] Performed By: #### 6 768-6, 07420-1 ####[facility] [id number] [place] [address] [place] CBC W Auto Differential pane l (Bld)on 10-22-2024 Basophils (Bld) [#/Vol] 0.11 10*3/uL High <0.11 [facility] Comment on above: Order Comment: Speci men Type: BLOOD SPECIMENOrdering Facility: [facility] Address: [address] [place] [address] Performed By: #### 5 7021-8 ####[facility] LABCLIA [id number] [facility] [id number] [address] [place] Basophils/100 WBC (Bld) 1.1 % Normal [facility] Comment on above: Order Comment: Speci men Type: BLOOD SPECIMENOrdering Facility: [facility] Address: [address] [place] [address] Performed By: #### 5 7021-8 ####[facility] LABCLIA [id number] [facility] [address] [place] [address] [place] Differential cell count method Nom (Bld) Auto Normal [facility] Comment on above: Order Comment: Speci men Type: BLOOD SPECIMENOrdering Facility: [facility] Address: [address] [place] [address] Performed By: #### 5 7021-8 ####[facility] LABCLIA [id number] [facility] [address], [facility] [place] Eosinophils (Bld) [#/Vol] 0.45 10*3/uL Normal <0.46 [facility] Comment on above: Order Comment: Speci men Type: BLOOD SPECIMENOrdering Facility: [facility] Address: [address] [place] [address] Performed By: #### 5 7021-8 ####[facility] LABCLIA [id number] [facility] [address], [facility] [place] Eosinophils/100 WBC (Bld) 4.6 % Normal [facility] Comment on above: Order Comment: Speci men Type: BLOOD SPECIMENOrdering Facility: [facility] Address: [address] [place] [address] Performed By: #### 5 7021-8 ####[facility] LABCLIA [id number] [facility] [address] [place] [address] [place] Erythrocyte distribution width (RBC) [Ratio] 13.5 % Normal 11.5-15.0 [facility] Comment on above: Order Comment: Speci men Type: BLOOD SPECIMENOrdering Facility: [facility] Address: [address] [place] [address] Performed By: #### 5 7021-8 ####[facility] LABCLIA [id number] [place] [address] [place] Hematocrit (Bld) [Volume fraction] 41.6 % Normal 39.0-51.0 [facility] Comment on above: Order Comment: Speci men Type: BLOOD SPECIMENOrdering Facility: [facility] Address: [address] [place] [address] Performed By: #### 5 7021-8 ####[facility] LABCLIA [id number] [place] [address] [place] Hemoglobin (Bld) [Mass/Vol] 14.0 g/dL Normal 13.0-17.0 [facility] Comment on above: Order Comment: Speci men Type: BLOOD SPECIMENOrdering Facility: [facility] Address: [address] [place] [address] Performed By: #### 5 7021-8 ####[facility] LABCLIA [id number] [place] [address] [place] Immature granulocytes (Bld) [#/Vol] 0.03 10*3/uL Normal <0.10 [facility] Comment on above: Order Comment: Speci men Type: BLOOD SPECIMENOrdering Facility: [facility] Address: [address] [place] [address] Performed By: #### 5 7021-8 ####[facility] LABCLIA [id number] [place] [address] [place] Immature granulocytes/100 WBC (Bld) 0.3 % Normal [facility] Comment on above: Order Comment: Speci men Type: BLOOD SPECIMENOrdering Facility: [facility] Address: [address] [place] [address] Performed By: #### 5 7021-8 ####[facility] LABCLIA [id number] [place] [address] [place] Lymphocytes (Bld) [#/Vol] 3.27 10*3/uL Normal 1.00-4.00 [facility] Comment on above: Order Comment: Speci men Type: BLOOD SPECIMENOrdering Facility: [facility] Address: [address] [place] [address] Performed By: #### 5 7021-8 ####[facility] LABCLIA [id number] [place] [address] [place] Lymphocytes/100 WBC (Bld) 33.1 % Normal [facility] Comment on above: Order Comment: Speci men Type: BLOOD SPECIMENOrdering Facility: [facility] Address: [address] [place] [address] Performed By: #### 5 7021-8 ####[facility] LABIA [id number] [place] [address] [place] MCH (RBC) [Entitic mass] 30.6 pg Normal 26.0-34.0 [facility] Comment on above: Order Comment: Speci men Type: BLOOD SPECIMENOrdering Facility: [facility] Address: [address] [place] [address] Performed By: #### 5 7021-8 ####[facility] LABIA [id number] [place] [address] [place] MCHC (RBC) [Mass/Vol] 33.7 g/dL Normal 30.5-36.0 [facility] Comment on above: Order Comment: Speci men Type: BLOOD SPECIMENOrdering Facility: [facility] Address: [address] [place] [address] Performed By: #### 5 7021-8 ####[facility] LABIA [id number] [place] [address] [place] MCV (RBC) [Entitic vol] 90.8 fL Normal 80.0-100.0 [facility] Comment on above: Order Comment: Speci men Type: BLOOD SPECIMENOrdering Facility: [facility] Address: [address] [place] [address] Performed By: #### 5 7021-8 ####[facility] LABCLIA [id number] [place] [id number] [place] Monocytes (Bld) [#/Vol] 0.80 10*3/uL Normal <0.87 [facility] Comment on above: Order Comment: Speci men Type: BLOOD SPECIMENOrdering Facility: [facility] Address: [address] [place] [address] Performed By: #### 5 7021-8 ####[facility] LABCLIA [id number] [place] [address] [place] Monocytes/100 WBC (Bld) 8.1 % Normal [facility] Comment on above: Order Comment: Speci men Type: BLOOD SPECIMENOrdering Facility: [facility] Address: [address] [place] [address] Performed By: #### 5 7021-8 ####[facility] LABCLIA [id number] [place] [address] [place] Neutrophils (Bld) [#/Vol] 5.22 10*3/uL Normal 1.45-7.50 [facility] Comment on above: Order Comment: Speci men Type: BLOOD SPECIMENOrdering Facility: [facility] Address: [address] [place] [address] Performed By: #### 5 7021-8 ####[facility] LABCLIA [id number] [place] [id number] [place] Neutrophils/100 WBC (Bld) 52.8 % Normal [facility] Comment on above: Order Comment: Speci men Type: BLOOD SPECIMENOrdering Facility: [facility] Address: [address] [place] [address] Performed By: #### 5 7021-8 ####[facility] LABCLIA [id number] [address] [place] [address] [place] Nucleated RBC (Bld) [#/Vol] 10*3/uL Normal <0.01 [facility] Comment on above: Order Comment: Speci men Type: BLOOD SPECIMENOrdering Facility: [facility] Address: [address] [place] [address] Performed By: #### 5 7021-8 ####[facility] LABCLIA [id number] [address] [place] [address] [place] Nucleated RBC/100 WBC (Bld) [Ratio] 0.0 /100 WBC Normal [facility] Comment on above: Order Comment: Speci men Type: BLOOD SPECIMENOrdering Facility: [facility] Address: [address] [place] [address] Performed By: #### 5 7021-8 ####[facility] LABIA [id number] [address], [place] [address] [place] Platelet mean volume (Bld) [Entitic vol] 12.5 fL Normal 9.0-12.7 [facility] Comment on above: Order Comment: Speci men Type: BLOOD SPECIMENOrdering Facility: [facility] Address: [address] [place] [address] Performed By: #### 5 7021-8 ####[facility] LABIA [id number] [address], [facility] [place] Platelets (Bld) [#/Vol] 263 10*3/uL Normal 150-400 [facility] Comment on above: Order Comment: Speci men Type: BLOOD SPECIMENOrdering Facility: [facility] Address: [address] [place] [address] Performed By: #### 5 7021-8 ####[facility] LABCLIA [id number] [facility] [address] [place] [address] [place] RBC (Bld) [#/Vol] 4.58 10*6/uL Normal 4.20-6.00 [facility] Comment on above: Order Comment: Speci men Type: BLOOD SPECIMENOrdering Facility: [facility] Address: [address] [place] [address] Performed By: #### 5 7021-8 ####[facility] LABCLIA [id number] [place] [address] [place] WBC (Bld) [#/Vol] 9.88 10*3/uL Normal 3.70-11.00 [facility] Comment on above: Order Comment: Speci men Type: BLOOD SPECIMENOrdering Facility: [facility] [facility] Address: [address] [place] [address] Performed By: #### 5 7021-8 ####[facility] LABCLIA [id number] [address] [place] CNOVon 10-22-2024 CNOV Office Visit (INTMWS ) -- JING MCKEON ([id number]) 1955 M Date Time Provider Department 10/22/24 2:00 PM SON ZAMBRANO INTMWS During your visit today, we recorded the following information about you: Temperature Pulse Respiration Blood pressure 97 degrees 76/minute 16/minute 124/64 Weight 76.5 kg Son Zambrano MD 10/22/2024 6:30 PM Signed This note was created using Dynamo Mediariter. Subjective Jing Mckeon is a 69 year old male. Patient presents with: Follow Up: 4 months SUBJECTIVE: Jing Mckeon is a 69 year old year old lady here today for 4 month follow up appointment for review of medical conditions. Jing is a 69-year-old male with a history of DM, presenting for a 4-month follow-up and evaluation of worsening fatigue. Jing reports a gradual onset of fatigue over the past few years, with a notable worsening in the past 2 months. He describes the fatigue as a constant feeling of low energy and sleepiness throughout the day, leading to decreased productivity and a desire to lay around and watch TV. He denies any recent significant illnesses but recalls a mild respiratory infection around August. He denies dyspnea, wheezing, or cough, except for occasional coughing after eating large meals. He also denies dysphagia, leg cramping, or muscle spasms, but notes a persistent limp since an injury in December, which he attributes to muscle tightness. Jing reports difficulty with both sleep onset and maintenance, requiring melatonin for assistance. Despite this, he often sleeps 10+ hours per night but still wakes up feeling tired. He denies any history of snoring, apnea, or restless leg syndrome. He also denies symptoms of hypoglycemia, such as shakiness or syncope, since using the FreeStyle Luiza CGM, which alerts him to low blood glucose levels before they become severe. He carries glucose tablets, orange juice, and candy bars for management of hypoglycemia. Recent lab results show an improved HbA1c of 7.8%. Previous labs from May revealed a slightly elevated PSA, for which he has a follow-up appointment with a urologist later this month. Cholesterol levels were within normal limits, with triglycerides at 95 mg/dL, HDL at 59 mg/dL, and LDL at 76 mg/dL. There was a minimal increase in proteinuria, with a level of 33 mg/dL. Blood glucose was 210 mg/dL, and kidney function was reported as normal. Alkaline phosphatase levels were slightly elevated. Jing denies any symptoms of hypoglycemia, such as shakiness or syncope, since using the FreeStyle Luiza CGM, which alerts him to low blood glucose levels before they become severe. He carries glucose tablets, orange juice, and candy bars for management of hypoglycemia. PAST MEDICAL HISTORY Diagnosis Date Benign neoplasm of colon BPH without obstruction/lower urinary tract symptoms 04/01/2012 Carpal tunnel syndrome Degeneration of lumbar or lumbosacral intervertebral disc 05/02/2008 Elevated prostate specific antigen (PSA) 07/2023 Essential hypertension, benign Glaucoma Hemorrhage of rectum and anus Hyperplasia of prostate Primary hypertension Pure hypercholesterolemia Gets labs done at [facility] for BJ Shook Type II or unspecified type diabetes mellitus without mention of complication, uncontrolled Continues to follow with MIQUEL Siddiqui, OPHELIA/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--gets labs through [facility] Unspecified glaucoma(365.9) Current Outpatient Medications Medication Sig insulin aspart U-100 (NOVOLOG FLEXPEN U-100 INSULIN) 100 unit/mL (3 mL) Inject 12 units before breakfast, 12 units before lunch, and 12 units before dinner as directed. Through [employer] Patient Assistance. metoprolol succinate ER (TOPROL XL) 50 mg 24 hr tablet Take 1 tablet by mouth two times a day. gabapentin (NEURONTIN) 300 mg capsule Take 1 capsule by mouth two times a day for 90 days. (Patient not taking: Reported on 02/21/2024) Cholecalciferol, Vitamin D3, 125 mcg (5,000 unit) cap Take 1 capsule by mouth once daily. inulin-chromium picolinate (FIBER SELECT GUMMIES) 2-100 gram-mcg chew Take 1 Dose by mouth once daily. flash glucose sensor (FREESTYLE LUIZA 2 SENSOR) kit Ust to check blood sugars once daily. Please apply free voucher for 1 sensor, pt to bring in dorzolamide HCl/timolol maleat (DORZOLAMIDE-TIMOLOL OPHTHALMIC) Use 1 Drop in both eyes two times a day. beta-carotene,A,-vits C,E/mins (OCUVITE ORAL) Take 1 tablet by mouth once daily. LATANOPROST, PF, OPHTHALMIC Use 1 Drop in both eyes every morning. tamsulosin (FLOMAX) 0.4 mg Take 2 capsules by mouth daily at bedtime. (Patient taking differently: Take 0.4 mg by mouth two times a day.) simvastatin (ZOCOR) 40 mg tablet Take 1 tablet by mouth daily at bedtime. enalapril (VASOTEC) 20 mg tablet Take 1 tablet by mouth two times a day. flash glucose scanning reader (FREESTYLE LUIZA 2 READER) Use to check blood (more content not included)... Normal [facility] Comprehensive metabolic 2000 panelon 10-22-2024 Albumin [Mass/Vol] 4.3 g/dL Normal 3.9-4.9 [facility] Comment on above: Order Comment: Speci men Type: BLOOD SPECIMENOrdering Facility: [facility] Address: [address] [place] [address] Performed By: #### 6 768-6, 34071-3 ####[facility] LABCLIA [id number] [address] [place] [address] [place] ALT [Catalytic activity/Vol] 14 U/L Normal 10-54 [facility] Comment on above: Order Comment: Speci men Type: BLOOD SPECIMENOrdering Facility: [facility] Address: [address] [place] [address] Performed By: #### 6 768-6, 71514-9 ####[facility] LABCLIA [id number] [address] [place] [address] [place] Anion gap [Moles/Vol] 13 mmol/L Normal 8-15 [facility] Comment on above: Order Comment: Speci men Type: BLOOD SPECIMENOrdering Facility: [facility] Address: [address] [place] [address] Performed By: #### 6 768-6, 78447-2 ####[facility] LABCLIA [id number] [address] [place] [address] [place] AST [Catalytic activity/Vol] 22 U/L Normal 14-40 [facility] Comment on above: Order Comment: Speci men Type: BLOOD SPECIMENOrdering Facility: [facility] Address: [address] [place], [place] [address] Performed By: #### 6 768-6, 04898-5 ####[facility] LABCLIA [id number] [facility] [address] [place] [address] [place] Bilirubin [Mass/Vol] 0.3 mg/dL Normal 0.2-1.3 [facility] Comment on above: Order Comment: Speci men Type: BLOOD SPECIMENOrdering Facility: [facility] Address: [address] [place] [address] Performed By: #### 6 768-6, 72799-6 ####[facility] LABCLIA [id number] [address], [facility] [place] Calcium [Mass/Vol] 10.1 mg/dL Normal 8.5-10.2 [facility] Comment on above: Order Comment: Speci men Type: BLOOD SPECIMENOrdering Facility: [facility] Address: [address] [place] [address] Performed By: #### 6 768-6, 77652-0 ####[facility] LABCLIA [id number] [address], [facility] [place] Chloride [Moles/Vol] 106 mmol/L Normal 98-107 [facility] Comment on above: Order Comment: Speci men Type: BLOOD SPECIMENOrdering Facility: [facility] Address: [address] [place] [address] Performed By: #### 6 768-6, 93423-0 ####[facility] LABCLIA [id number] [place] [address] [place] CO2 [Moles/Vol] 23 mmol/L Normal 22-30 [facility] Comment on above: Order Comment: Speci men Type: BLOOD SPECIMENOrdering Facility: [facility] Address: [address] [place] [address] Performed By: #### 6 768-6, 97284-4 ####[facility] LABCLIA [id number] [address], [facility] [place] Creatinine [Mass/Vol] 0.77 mg/dL Normal 0.73-1.22 [facility] Comment on above: Order Comment: Speci men Type: BLOOD SPECIMENOrdering Facility: [facility] Address: [address] [place] [address] Performed By: #### 6 768-6, 58146-9 ####[facility] LABCLIA [id number] [facility] [address], [facility] [place] Creatinine and Glomerular filtration rate.predicted panel (S/P/Bld) 96 mL/min/1.73m??? Normal >=60 [facility] Comment on above: Order Comment: Marivel garcia Type: BLOOD SPECIMENOrdering Facility: [facility] Address: [address] [place] [address] Result Comment: Kia mated Glomerular Filtration Rate (eGFR) is calculated using the 2020 CKD-EPI creatinine equation. This equation utilizes serum creatinine, sex, and age as parameters. The creatinine assay has traceable calibration to isotope dilution-mass spectrometry. Refer to KDIGO guidelines for clinical interpretation. In patients with unstable renal function, e.g. those with acute kidney injury, the eGFR may not accurately reflect actual GFR. Performed By: #### 6 768-6, 15118-0 ####[facility] LABCLIA [id number] [place] [address] [place] Glucose [Mass/Vol] 98 mg/dL Normal 74-99 [facility] Comment on above: Order Comment: Marivel garcia Type: BLOOD SPECIMENOrdering Facility: [facility] Address: [address] [place] [address] Result Comment: The [place] Diabetes Association (ADA) provides guidance for cutoff values for fasting glucose and random glucose. The ADA defines fasting as no caloric intake for at least 8 hours. Fasting plasma glucose results between 100 to 125 [...] Standards of Medical Care in Diabetes 2016, [place] Diabetes Association. Diabetes Care. 2016.39(Suppl 1). Performed By: #### 6 768-6, 33350-3 ####[facility] LABCLIA [id number] [place] [address] [place] Potassium [Moles/Vol] 4.7 mmol/L Normal 3.7-5.1 [facility] Comment on above: Order Comment: Marivel garcia Type: BLOOD SPECIMENOrdering Facility: [facility] Address: [address] [place], [place] [address] Performed By: #### 6 768-6, 38032-4 ####[facility] LABIA [id number] [address] [address] [place] Protein [Mass/Vol] 7.0 g/dL Normal 6.3-8.0 [facility] Comment on above: Order Comment: Speci men Type: BLOOD SPECIMENOrdering Facility: [facility] Address: [address] [place] [address] Performed By: #### 6 768-6, 96148-2 ####[facility] LABIA [id number] [place] [address] [place] Sodium [Moles/Vol] 142 mmol/L Normal 136-144 [facility] Comment on above: Order Comment: Speci men Type: BLOOD SPECIMENOrdering Facility: [facility] Address: [address] [place] [address] Performed By: #### 6 768-6, 79365-6 ####[facility] LABIA [id number] [place] [address] [place] Urea nitrogen [Mass/Vol] 15 mg/dL Normal 9-24 [facility] Comment on above: Order Comment: Speci men Type: BLOOD SPECIMENOrdering Facility: [facility] Address: [address] [place] [address] Performed By: #### 6 768-6, 91665-3 ####[facility] LABIA [id number] [address] [address] [place] Magnesium SerPl-mCncon 10-22 Magnesium [Mass/Vol] 2.0 mg/dL Normal 1.7-2.3 [facility] Comment on above: Order Comment: Speci men Type: BLOOD SPECIMENOrdering Facility: [facility] Address: [address] [place] [address] Performed By: #### 3 051-0, 3024-7, 3015-3, ####[facility] LABCLIA [id number] [place] [address] [facility] [place] T3Free SerPl-mCncon 10-23-19 25 Free T3 [Mass/Vol] 2.7 pg/mL Normal 2.3-4.1 [facility] Comment on above: Order Comment: Speci men Type: BLOOD SPECIMENOrdering Facility: [facility] Address: [address] [place] [address] Performed By: #### 3 051-0, 3023-7, 3, ####[facility] LABIA [id number] [address] [place] T4 Free SerPl-mCncon 025 Free T4 [Mass/Vol] 1.2 ng/dL Normal 0.9-1.7 [facility] Comment on above: Order Comment: Speci men Type: BLOOD SPECIMENOrdering Facility: [facility] Address: [address] [place] [address] Performed By: #### 3 051-0, 3023-7, 3, ####[facility] LABIA [id number] [address] [place] TSH SerPl-aCncon 10-22-2024 TSH Qn 2.190 m[IU]/L Normal 0.270-4.200 [facility] Comment on above: Order Comment: Speci men Type: BLOOD SPECIMENOrdering Facility: [facility] Address: [address] [place] [address] Performed By: #### 3 051-0, 302-7, 3, ####[facility] LABIA [id number] [place] [id number] [place] CNPArgelia 10-15-2024 CNPN Telephone (INTWS) -- JING MCKEON ([id number]) 1955 M Date Time Provider Department 10/15/24 SON ZAMBRANO During your visit today, we recorded the following information about you: Ami Young LPN 10/15/2024 11:23 AM Signed Re'delvin 3 boxes of mike nordisk 3 boxes of novolog flex pen units 100 5X3ml prefilled pens Lot number Exp date 10/20/2026. Ami Young LPN 10/15/2024 4:25 PM Signed Pt notified. This is in the fridge on the left side. Ami Young LPN 10/16/2024 3:17 PM Signed Pt has picked this up. Allergies As of Date: 10/15/2024 (No Known Allergies) Date Reviewed: 10/02/2024 Reviewed by: Jessica Ricks [facility] - Fully Assessed Reason for Visit: rekaitlyn novolg flex pen from mike [employer] [Other] Prescriptions as of 10/16/2024 - insulin aspart U-100 (NOVOLOG FLEXPEN U-100 INSULIN) 100 unit/mL (3 mL) Inject 12 units before breakfast, 12 units before lunch, and 12 units before dinner as directed. Through [employer] Patient Assistance. - metoprolol succinate ER (TOPROL XL) 50 mg 24 hr tablet Take 1 tablet by mouth two times a day. - gabapentin (NEURONTIN) 300 mg capsule Take 1 capsule by mouth two times a day for 90 days. - Cholecalciferol, Vitamin D3, 125 mcg (5,000 unit) cap Take 1 capsule by mouth once daily. - inulin-chromium picolinate (FIBER SELECT GUMMIES) 2-100 gram-mcg chew Take 1 Dose by mouth once daily. - flash glucose sensor (FREESTYLE LUIZA 2 SENSOR) kit Ust to check blood sugars once daily. Please apply free voucher for 1 sensor, pt to bring in - dorzolamide HCl/timolol maleat (DORZOLAMIDE-TIMOLOL OPHTHALMIC) Use 1 Drop in both eyes two times a day. - beta-carotene,A,-vits C,E/mins (OCUVITE ORAL) Take 1 tablet by mouth once daily. - LATANOPROST, PF, OPHTHALMIC Use 1 Drop in both eyes every morning. - tamsulosin (FLOMAX) 0.4 mg Take 2 capsules by mouth daily at bedtime. - simvastatin (ZOCOR) 40 mg tablet Take 1 tablet by mouth daily at bedtime. - enalapril (VASOTEC) 20 mg tablet Take 1 tablet by mouth two times a day. - flash glucose scanning reader ([employer] LUIZA 2 READER) Use to check blood sugars once a day. - insulin degludec (TRESIBA FLEXTOUCH U-100) 100 unit/mL (3 mL) injection pen Inject 20 Units subcutaneously every morning. Patient Assistance Medication - semaglutide (OZEMPIC) 1 mg/dose (4 mg/3 mL) pen Inject 1 mg subcutaneously one time a week. - meclizine (ANTIVERT) 25 mg tab Take 1 tablet by mouth three times daily as needed (dizziness). - glucagon (GVOKE HYPOPEN 2-PACK) 0.5 mg/0.1 mL AutoInjector Use to treat severe hypoglycemic episode as recommend on product labeling. - glucose 4 gram chewable tablet Take 4 tablets by mouth as needed. - Insulin [place], Disposable, (BD ULTRA-FINE DONNIE PEN NEEDLE) 32 gauge x 5/32 Use as directed with insulin injections three times daily - albuterol HFA (VENTOLIN HFA) 90 mcg/actuation inhaler Inhale 2 Puffs as instructed every 4 hours as needed for Wheezing/Shortness of Breath. - Insulin Syringe-Needle U-100 (BD INSULIN SYRINGE UF II) 0.5 mL 31 gauge x 5/16 syrg Use as directed with insulin injections three times daily - Blood Sugar Diagnostic, Drum (ACCU-CHEK COMPACT TEST) Strp Testing 2-3 times daily - lancets(FREESTYLE LANCETS) Use as directed. - COSOPT 2 %-0.5 % EYE DROPS Use in eyes. - ASPIRIN 81 MG TAB Take 81 mg by mouth once daily. - B COMPLEX CAP Take 1 capsule by mouth once daily. - MULTIVITAMIN TAB Take 1 tablet by mouth once daily. 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 Type 2 diabetes mellitus with microalbuminuria,*11/17/19 16 History of colonic polyps [Z86.0100] 05/23/2017 Diverticulosis of large intestine without hemor*05/23/2017 Colon cancer screening [Z12.11] 12/07/2023 Encounter Status:Closed by AMI YOUNG on 10/16/24 [facility] 10-03-2024 BANNER Telephone (CORNELL[employer] TV NetworksAdalgisa GOOD) -- JING MCKEON ([id number]) 1955 M Date Time Provider Department 10/03/24 BRANDON RIOS During your visit today, we recorded the following information about you: Brandon Rios CPhT 10/03/2024 10:56 AM Signed Patient Assistance Team received message that patient first shipment of assistance medications Novolog vials were sent instead of selected product on application Novolog Flexpens. Pre-filled in medication change forms 10/03/2024. Will scan in AND route to provider to sign. Brandon Rios CPhT E-Mail : [email or web address] Phone : [phone] Fax : [phone] Brandon Rios [facility] 10/03/2024 10:56 AM Signed Once signed by provider please fax forms back to Patient Assistance Team ATTN : Piedad at [phone]. PLEASE DO NOT FAX TO [facility] [employer]. Provider portion of patient assistance [facility] medication change forms (Novolog Flexpens) have been scanned to patient documents. Patient Assistance Team is asking that forms be printed at office for Dr Zambrano to review and sign. Thank You! Brandon Rios [facility] E-Mail : [email or web address] Phone : [phone] Fax : [phone] Kasie Michel LPN 10/03/2024 1:24 PM Signed Form printed and completed and faxed back as requested below. Brandon Rios [facility] 10/06/2024 11:09 PM Signed Application faxed to [employer] for medications Novolog Flexpens (not vials) on 10/06/2024. Patient Assistance Team will follow up via phone call to monogram machine operator if in 7-10 business days no faxed response is recieved. Brandon Rios [facility] E-Mail : [email or web address] Phone : [phone] Fax : [phone] Brandon Rios [facility] 10/10/2024 1:56 PM Signed Called [facility] 10/10/2024 to check on medication change forms. Spoke with hospital insurance representative who looked over original application and noted it was in fact for Novolog Flexpens. Per [employer] hospital insurance representative a new shipment had started fulfillment on 10/07/2024 AND should arrive at provider office in 10-14 business days. Will route to consulting [facility] as FYI. Thank you! Brandon Rios [facility] E-Mail : [email or web address] Phone : [phone] Fax : [phone] Allergies As of Date: 10/03/2024 (No Known Allergies) Date Reviewed: 10/02/2024 Reviewed by: Jessica Ricks [facility] - Fully Assessed Reason for Visit: Forms [913] Cmt: Patient Assistance Program - Mike [employer] (Medication Change Forms) Prescriptions as of 02/12/2025 - insulin degludec (TRESIBA FLEXTOUCH U-100) 100 unit/mL (3 mL) injection pen Inject 20 Units subcutaneously every morning. Mike [employer] Patient Assistance Medication - semaglutide (OZEMPIC) 1 mg/dose (4 mg/3 mL) pen Inject 1 mg subcutaneously one time a week. [employer] PAP. Do not send to pharmacy - patient receives through patient assistance program. For medication order changes (med, dose, frequency) please route to kenneth RX [facility]. - Tadalafil (CIALIS) 20 mg tablet Take 1 tablet by mouth once daily as needed. Take 1-2 hours before sexual activity. - insulin aspart U-100 (NOVOLOG FLEXPEN U-100 INSULIN) 100 unit/mL (3 mL) Inject 10 units before breakfast, 10 units before lunch, and 10 units before dinner as directed. Through [employer] Patient Assistance. - meclizine (ANTIVERT) 25 mg tab Take 1 tablet by mouth three times a day as needed (dizziness). - albuterol HFA (VENTOLIN HFA) 90 mcg/actuation inhaler Inhale 2 puffs as instructed every 4 hours as needed for wheezing/shortness of breath (cough). - benzonatate (TESSALON PERLE) 100 mg capsule Take 1-2 capsules by mouth three times a day as needed for cough. - ondansetron orally disintegrating (ZOFRAN ODT) 4 mg disintegrating tablet Take 1 tablet by mouth every 6 hours as needed for nausea/vomiting. - tamsulosin (FLOMAX) 0.4 mg Take 1 capsule by mouth two times a day. - enalapril (VASOTEC) 20 mg tablet Take 1 tablet by mouth two times a day. - flash glucose sensor (FREESTYLE LUIZA 2 SENSOR) kit Ust to check blood sugars once daily. Please apply free voucher for 1 sensor, pt to bring in - metoprolol succinate ER (TOPROL XL) 50 mg 24 hr tablet Take 1 tablet by mouth two times a day. - gabapentin (NEURONTIN) 300 mg capsule Take 1 capsule by mouth two times a day for 90 days. - Cholecalciferol, Vitamin D3, 125 mcg (5,000 unit) cap Take 1 capsule by mouth once daily. - inulin-chromium picolinate (FIBER SELECT GUMMIES) 2-100 gram-mcg chew Take 1 Dose by mouth once daily. - dorzolamide HCl/timolol maleat (DORZOLAMIDE-TIMOLOL OPHTHALMIC) Use 1 Drop in both eyes two times a day. - beta-carotene,A,-vits C,E/mins (OCUVITE ORAL) Take 1 tablet by mouth once daily. - LATANOPROST, PF, OPHTHALMIC Use 1 Drop in both eyes every morning. - simvastatin (ZOCOR) 40 mg tablet Take 1 tablet by mouth zach (more content not included)... Normal [facility] CNOVon 10-02-2024 CNOV Office Visit (PHMEWO ) -- JING MCKEON ([id number]) 1955 M Date Time Provider Department 10/02/24 2:00 PM [facility] your visit today, we recorded the following information about you: Jessica Ricks RPh 10/02/2024 4:25 PM Signed Primary Care Pharmacy Visit CC (Reason for Consult): (E11.29, R80.9, Z79.4) Type 2 diabetes mellitus with microalbuminuria, with long-term current use of insulin (HCC) (primary encounter diagnosis) Goal(s): A1c <8% Last Collaborating Provider Visit: 06/23/24 with OPHELIA Wilkes Mike is a 69 year old male presenting for follow up visit in person. Patient consents to pharmacy collaborative practice agreement. Last Pharmacy Visit: 07/03/24 Interim Events: - 09/29/24 A1c results - improvement from 8.2% to 7.8% HPI: Reports doing well States BGs have still been up and down, most of the time he's in target Reports has had a couple lows but nothing of concerns, thinks some are not accurate overnight States they sent him Novolog vials instead of the pens which is how he was getting previously; has the syringes to use up supply but would prefer to go back to pens Current DM Medications: Ozempic 1 mg once weekly on Mondays Tresiba 20 units once daily at bedtime Novolog 10 units with breakfast, 10 units with lunch, 12 units with dinner - taking 12 units with meals Diet Denies any recent changes Breakfast 8-10a Lunch 12-1p Dinner 530-630p GLYCEMIC CONTROL: Glucometer present at visit: Yes - FSL2 reader (gets sensors through [employer]) Hypoglycemia: Yes CGM Data Past medical history reviewed. ALLERGIES No Known Allergies Current Outpatient Medications Medication Sig Dispense Refill metoprolol succinate ER (TOPROL XL) 50 mg 24 hr tablet Take 1 tablet by mouth two times a day. 60 tablet 5 gabapentin (NEURONTIN) 300 mg capsule Take 1 capsule by mouth two times a day for 90 days. (Patient not taking: Reported on 02/21/2024) 60 capsule 2 Cholecalciferol, Vitamin D3, 125 mcg (5,000 unit) cap Take 1 capsule by mouth once daily. inulin-chromium picolinate (FIBER SELECT GUMMIES) 2-100 gram-mcg chew Take 1 Dose by mouth once daily. flash glucose sensor (FREESTYLE LUIZA 2 SENSOR) kit Ust to check blood sugars once daily. Please apply free voucher for 1 sensor, pt to bring in 6 Each 3 dorzolamide HCl/timolol maleat (DORZOLAMIDE-TIMOLOL OPHTHALMIC) Use 1 Drop in both eyes two times a day. beta-carotene,A,-vits C,E/mins (OCUVITE ORAL) Take 1 tablet by mouth once daily. LATANOPROST, PF, OPHTHALMIC Use 1 Drop in both eyes every morning. tamsulosin (FLOMAX) 0.4 mg Take 2 capsules by mouth daily at bedtime. (Patient taking differently: Take 0.4 mg by mouth two times a day.) 180 capsule 3 simvastatin (ZOCOR) 40 mg tablet Take 1 tablet by mouth daily at bedtime. 90 tablet 3 enalapril (VASOTEC) 20 mg tablet Take 1 tablet by mouth two times a day. 180 tablet 3 flash glucose scanning reader (FREESTYLE LUIZA 2 READER) Use to check blood sugars once a day. 1 Each 0 insulin aspart U-100 (NOVOLOG FLEXPEN U-100 INSULIN) 100 unit/mL (3 mL) Inject 10 units before breakfast, 10 units before lunch, and 12 units before dinner as directed. Through [employer] Patient Assistance. insulin degludec (TRESIBA FLEXTOUCH U-100) 100 unit/mL (3 mL) injection pen Inject 20 Units subcutaneously every morning. Patient Assistance Medication (Patient taking differently: Inject 20 Units subcutaneously daily with dinner. Patient Assistance Medication) semaglutide (OZEMPIC) 1 mg/dose (4 mg/3 mL) pen Inject 1 mg subcutaneously one time a week. meclizine (ANTIVERT) 25 mg tab Take 1 tablet by mouth three times daily as needed (dizziness). 30 tablet 1 glucagon (GVOKE HYPOPEN 2-PACK) 0.5 mg/0.1 mL AutoInjector Use to treat severe hypoglycemic episode as recommend on product labeling. (Patient not taking: Reported on 03/19/2023) 0.2 mL 3 glucose 4 gram chewable tablet Take 4 tablets by mouth as needed. 30 tablet 2 Insulin [place], Disposable, (BD ULTRA-FINE DONNIE PEN NEEDLE) 32 gauge x 5/32 Use as directed with insulin injections three times daily 100 Each 11 albuterol HFA (VENTOLIN HFA) 90 mcg/actuation inhaler Inhale 2 Puffs as instructed every 4 hours as needed for Wheezing/Shortness of Breath. 18 g 3 Insulin Syringe-Needle U-100 (BD INSULIN SYRINGE UF II) 0.5 mL 31 gauge x 5/16 syrg Use as directed with insulin injections three times daily 300 Syringe 3 Blood Sugar Diagnostic, Drum (ACCU-CHEK COMPACT TEST) Strp Testing 2-3 times daily (Patient taking differently: 4 Strips four times daily.) 306 Strip 3 lancets(FREESTYLE LANCETS) Use as directed. (Patient not taking: Reported on 09/17/2023) 300 3 COSOPT 2 %-0.5 % EYE DROPS Use in eyes. 0 ASPIRIN 81 MG TAB Take 81 mg by mouth once daily. 0 B COMPLEX CAP Take 1 capsule by mouth once daily. 0 (more content not included)... Normal [facility] Comprehensive metabolic 2000 panelon 09-29-2024 Albumin [Mass/Vol] 4.0 g/dL Normal 3.9-4.9 [facility] Comment on above: Order Comment: Speci men Type: BLOOD SPECIMENOrdering Facility: [facility] Address: [address] [place], [place] [address] Performed By: #### 2 4323-8 ####[facility] LABCLIA [id number] [facility] [address] [place] [address] [place] ALP [Catalytic activity/Vol] 143 U/L High 38-113 [facility] Comment on above: Order Comment: Speci men Type: BLOOD SPECIMENOrdering Facility: [facility] Address: [address] [place] [address] Performed By: #### 2 4323-8 ####[facility] LABCLIA [id number] [facility] [address], [facility] [place] ALT [Catalytic activity/Vol] 16 U/L Normal 10-54 [facility] Comment on above: Order Comment: Speci men Type: BLOOD SPECIMENOrdering Facility: [facility] Address: [address] [place] [address] Performed By: #### 2 4323-8 ####[facility] LABCLIA [id number] [facility] [place] [id number] [place] Anion gap [Moles/Vol] 10 mmol/L Normal 8-15 [facility] Comment on above: Order Comment: Speci men Type: BLOOD SPECIMENOrdering Facility: [facility] Address: [address] [place] [address] Performed By: #### 2 4323-8 ####[facility] LABCLIA [id number] [facility] [address] [place] [address] [place] AST [Catalytic activity/Vol] 20 U/L Normal 14-40 [facility] Comment on above: Order Comment: Speci men Type: BLOOD SPECIMENOrdering Facility: [facility] Address: [address] [place] [address] Performed By: #### 2 4323-8 ####[facility] LABCLIA [id number] [facility] [address] [place] [address] [place] Bilirubin [Mass/Vol] 0.4 mg/dL Normal 0.2-1.3 [facility] Comment on above: Order Comment: Speci men Type: BLOOD SPECIMENOrdering Facility: [facility] Address: [address] [place] [address] Performed By: #### 2 4323-8 ####[facility] LABCLIA [id number] [address], [facility] [place] Calcium [Mass/Vol] 9.5 mg/dL Normal 8.5-10.2 [facility] Comment on above: Order Comment: Speci men Type: BLOOD SPECIMENOrdering Facility: [facility] Address: [address] [place] [address] Performed By: #### 2 4323-8 ####[facility] LABCLIA [id number] [address], [facility] [place] Chloride [Moles/Vol] 104 mmol/L Normal 98-107 [facility] Comment on above: Order Comment: Speci men Type: BLOOD SPECIMENOrdering Facility: [facility] Address: [address] [place] [address] Performed By: #### 2 4323-8 ####[facility] LABCLIA [id number] [address], [facility] [place] CO2 [Moles/Vol] 24 mmol/L Normal 22-30 [facility] Comment on above: Order Comment: Speci men Type: BLOOD SPECIMENOrdering Facility: [facility] Address: [address] [place], [place] [address] Performed By: #### 2 4323-8 ####[facility] LABCLIA [id number] [facility] [address], [facility] [place] Creatinine [Mass/Vol] 0.75 mg/dL Normal 0.73-1.22 [facility] Comment on above: Order Comment: Speci men Type: BLOOD SPECIMENOrdering Facility: [facility] Address: [address] [place] [address] Performed By: #### 2 4323-8 ####[facility] LABIA [id number] [place] [address] [place] Creatinine and Glomerular filtration rate.predicted panel (S/P/Bld) 96 mL/min/1.73m??? Normal >=60 [facility] Comment on above: Order Comment: Marivel men Type: BLOOD SPECIMENOrdering Facility: [facility] Address: [address] [place] [address] Result Comment: Kia mated Glomerular Filtration Rate (eGFR) is calculated using the 2020 CKD-EPI creatinine equation. This equation utilizes serum creatinine, sex, and age as parameters. The creatinine assay has traceable calibration to isotope dilution-mass spectrometry. Refer to KDIGO guidelines for clinical interpretation. In patients with unstable renal function, e.g. those with acute kidney injury, the eGFR may not accurately reflect actual GFR. Performed By: #### 2 4323-8 ####[facility] LABIA [id number] [place] [address] [place] Glucose [Mass/Vol] 179 mg/dL High 74-99 [facility] Comment on above: Order Comment: Marivel garcia Type: BLOOD SPECIMENOrdering Facility: [facility] Address: [address] [place] [address] Result Comment: The [place] Diabetes Association (ADA) provides guidance for cutoff values for fasting glucose and random glucose. The ADA defines fasting as no caloric intake for at least 8 hours. Fasting plasma glucose results between 100 to 125 [...] Standards of Medical Care in Diabetes 2016, [place] Diabetes Association. Diabetes Care. 2016.39(Suppl 1). Performed By: #### 2 4323-8 ####[facility] LABCLIA [id number] [address] [place] [address] [place] Potassium [Moles/Vol] 4.1 mmol/L Normal 3.7-5.1 [facility] Comment on above: Order Comment: Speci men Type: BLOOD SPECIMENOrdering Facility: [facility] Address: [address] [place] [address] Performed By: #### 2 4323-8 ####[facility] LABCLIA [id number] [address] [place] [address] [place] Protein [Mass/Vol] 7.0 g/dL Normal 6.3-8.0 [facility] Comment on above: Order Comment: Speci men Type: BLOOD SPECIMENOrdering Facility: [facility] Address: [address] [place] [address] Performed By: #### 2 4323-8 ####[facility] LABIA [id number] [address] [place] [address] [place] Sodium [Moles/Vol] 138 mmol/L Normal 136-144 [facility] Comment on above: Order Comment: Speci men Type: BLOOD SPECIMENOrdering Facility: [facility] Address: [address] [place] [address] Performed By: #### 2 4323-8 ####[facility] LABIA [id number] [address], [facility] [place] Urea nitrogen [Mass/Vol] 16 mg/dL Normal 9-24 [facility] Comment on above: Order Comment: Speci men Type: BLOOD SPECIMENOrdering Facility: [facility] Address: [address] [place] [address] Performed By: #### 2 4323-8 ####[facility] LABIA [id number] [address] [place] [address] [place] HbA1c (Bld)on 09-29-2024 Average glucose Estimated from glycated hemoglobin (Bld) [Mass/Vol] 177 mg/dL Normal [facility] Comment on above: Order Comment: Marivel garcia Type: BLOOD SPECIMENOrdering Facility: [facility] Address: [address] [place] [address] Result Comment: eAG: (Estimated average glucose) is a calculated value from HgbA1c and is hospital insurance representative of the average blood glucose level in the last 2-3 month period. Performed By: #### 5 5454-3 ####[facility] LABIA [id number] [address] [place] HbA1c (Bld) [Mass fraction] 7.8 % High 4.3-5.6 [facility] Comment on above: Order Comment: Marivel garcia Type: BLOOD SPECIMENOrdering Facility: [facility] Address: [address] [place] [address] Result Comment: Amer [place] Diabetes Association guidelines indicate that patients with HgbA1c in the range 5.7-6.4% are at increased risk for development of diabetes, and intervention by lifestyle modification may be beneficial. HgbA1c greater or equal to 6.5% is considered diagnostic of diabetes. Performed By: #### 5 5454-3 ####[facility] [id number] [address] OF [facility] Inocencia 09-19-2024 [facility] JING MCKEON ([id number]) 1955 M Date Time Provider Department 09/19/24 SON ZAMBRANO INTWS During your visit today, we recorded the following information about you: Ami Young LPN 09/19/2024 9:20 AM Signed Rec'd from [employer] 5 boxes of pen needles. Lot number [id number] ex date 01/19/29 2. Novolg [id number] 100units/ml 5 vials Lot number is [id number] exp date 03/22/26. 3. Rec'd 4 boxes of ozempic 1x3ml prefilled pen 4mg/3ml lot number is [id number] exp date 03/22/27 4. 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 He says he will get this today. Ami Young LPN 09/22/2024 9:32 AM Signed Pt has picked this up. Allergies As of Date: 09/19/2024 (No Known Allergies) Date Reviewed: 07/03/2024 Reviewed by: Jessica Ricks RP - Fully Assessed Reason for Visit: medicines and pen neddles rec'd from [employer] [Other] Prescriptions as of 09/22/2024 - metoprolol succinate ER (TOPROL XL) 50 mg 24 hr tablet Take 1 tablet by mouth two times a day. - gabapentin (NEURONTIN) 300 mg capsule Take 1 capsule by mouth two times a day for 90 days. - Cholecalciferol, Vitamin D3, 125 mcg (5,000 unit) cap Take 1 capsule by mouth once daily. - inulin-chromium picolinate (FIBER SELECT GUMMIES) 2-100 gram-mcg chew Take 1 Dose by mouth once daily. - flash glucose sensor (FREESTYLE LUIZA 2 SENSOR) kit Ust to check blood sugars once daily. Please apply free voucher for 1 sensor, pt to bring in - dorzolamide HCl/timolol maleat (DORZOLAMIDE-TIMOLOL OPHTHALMIC) Use 1 Drop in both eyes two times a day. - beta-carotene,A,-vits C,E/mins (OCUVITE ORAL) Take 1 tablet by mouth once daily. - LATANOPROST, PF, OPHTHALMIC Use 1 Drop in both eyes every morning. - tamsulosin (FLOMAX) 0.4 mg Take 2 capsules by mouth daily at bedtime. - simvastatin (ZOCOR) 40 mg tablet Take 1 tablet by mouth daily at bedtime. - enalapril (VASOTEC) 20 mg tablet Take 1 tablet by mouth two times a day. - flash glucose scanning reader (GeneAssessSTYLE LUIZA 2 READER) Use to check blood sugars once a day. - insulin aspart U-100 (NOVOLOG FLEXPEN U-100 INSULIN) 100 unit/mL (3 mL) Inject 10 units before breakfast, 10 units before lunch, and 12 units before dinner as directed. Through [employer]. - insulin degludec (TRESIBA FLEXTOUCH U-100) 100 unit/mL (3 mL) injection pen Inject 20 Units subcutaneously every morning. Patient Assistance Medication - semaglutide (OZEMPIC) 1 mg/dose (4 mg/3 mL) pen Inject 1 mg subcutaneously one time a week. - meclizine (ANTIVERT) 25 mg tab Take 1 tablet by mouth three times daily as needed (dizziness). - glucagon (GVOKE HYPOPEN 2-PACK) 0.5 mg/0.1 mL AutoInjector Use to treat severe hypoglycemic episode as recommend on product labeling. - glucose 4 gram chewable tablet Take 4 tablets by mouth as needed. - Insulin [place], Disposable, (BD ULTRA-FINE DONNIE PEN NEEDLE) 32 gauge x 5/32 Use as directed with insulin injections three times daily - albuterol HFA (VENTOLIN HFA) 90 mcg/actuation inhaler Inhale 2 Puffs as instructed every 4 hours as needed for Wheezing/Shortness of Breath. - Insulin Syringe-Needle U-100 (BD INSULIN SYRINGE UF II) 0.5 mL 31 gauge x 5/16 syrg Use as directed with insulin injections three times daily - Blood Sugar Diagnostic, Drum (ACCU-CHEK COMPACT TEST) Strp Testing 2-3 times daily - lancets(FREESTYLE LANCETS) Use as directed. - COSOPT 2 %-0.5 % EYE DROPS Use in eyes. - ASPIRIN 81 MG TAB Take 81 mg by mouth once daily. - B COMPLEX CAP Take 1 capsule by mouth once daily. - MULTIVITAMIN TAB Take 1 tablet by mouth once daily. 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 2 diabetes mellitus with microalbuminuria,*11/17/19 16 History of colonic polyps [Z86.0100] 05/23/2017 Diverticulosis of large intestine without hemor*05/23/2017 Colon cancer screening [Z12.11] 12/07/2023 Encounter Status:Closed by AMI YOUNG on 09/22/24 [facility] CNPArgelia 09-12-2024 [facility]foc.us[facility] -- JING MCKEON ([id number]) 1955 M Date Time Provider Department 09/12/24 JESSICA RICKS During your visit today, we recorded the following information about you: Brandon Rios 09/12/2024 5:56 PM Signed Contacted [employer] in regard to patient shipment of Novolog, Tresiba, Pen [place] AND Ozempic 1mg. Spoke with hospital insurance representative and was informed medication is still in fulfillment with no tracking number attached. Since medication is well past 14 days of when it should have been delivered voucher was provided. Voucher to be used at retail/outpatient pharmacy of patient choice AND used (IN PLACE OF) patient insurance. Voucher is good for 1 month worth of medication. Will route to consulting pharmacist to assist with prescription being sent. VOUCHER INFORMATION BELOW : BIN: [id number] PCN: CNRX GRP: [id number] Voucher ID: [id number] Medication: NovoLog 10mL vial BIN: [id number] PCN: CNRX GRP: [id number] Voucher ID: [id number] Medication: Tresiba 100U/ml FlexTouch BIN: [id number] PCN: CNRX GRP: [id number] Voucher ID: [id number] Medication: NovoFine Plus 32G [place] BIN: [id number] PCN: CNRX GRP: [id number] Voucher ID: [id number] Medication: Ozempic 1 mg/mL (1 pens x 3mL/pen) Brandon Rios [facility] E-Mail : [email or web address] Phone : [phone] Fax : [phone] Allergies As of Date: 09/12/2024 (No Known Allergies) Date Reviewed: 07/03/2024 Reviewed by: Jessica Ricks RPh - Fully Assessed Reason for Visit: Medication Problem [65] Cmt: [employer] Vouchers Prescriptions as of 09/12/2024 - metoprolol succinate ER (TOPROL XL) 50 mg 24 hr tablet Take 1 tablet by mouth two times a day. - gabapentin (NEURONTIN) 300 mg capsule Take 1 capsule by mouth two times a day for 90 days. - Cholecalciferol, Vitamin D3, 125 mcg (5,000 unit) cap Take 1 capsule by mouth once daily. - inulin-chromium picolinate (FIBER SELECT GUMMIES) 2-100 gram-mcg chew Take 1 Dose by mouth once daily. - flash glucose sensor (FREESTYLE LUIZA 2 SENSOR) kit Ust to check blood sugars once daily. Please apply free voucher for 1 sensor, pt to bring in - dorzolamide HCl/timolol maleat (DORZOLAMIDE-TIMOLOL OPHTHALMIC) Use 1 Drop in both eyes two times a day. - beta-carotene,A,-vits C,E/mins (OCUVITE ORAL) Take 1 tablet by mouth once daily. - LATANOPROST, PF, OPHTHALMIC Use 1 Drop in both eyes every morning. - tamsulosin (FLOMAX) 0.4 mg Take 2 capsules by mouth daily at bedtime. - simvastatin (ZOCOR) 40 mg tablet Take 1 tablet by mouth daily at bedtime. - enalapril (VASOTEC) 20 mg tablet Take 1 tablet by mouth two times a day. - flash glucose scanning reader (GeneAssessSTYLE LUIZA 2 READER) Use to check blood sugars once a day. - insulin aspart U-100 (NOVOLOG FLEXPEN U-100 INSULIN) 100 unit/mL (3 mL) Inject 10 units before breakfast, 10 units before lunch, and 12 units before dinner as directed. Through [employer] Patient [employer]. - insulin degludec (TRESIBA FLEXTOUCH U-100) 100 unit/mL (3 mL) injection pen Inject 20 Units subcutaneously every morning. Patient Assistance Medication - semaglutide (OZEMPIC) 1 mg/dose (4 mg/3 mL) pen Inject 1 mg subcutaneously one time a week. - meclizine (ANTIVERT) 25 mg tab Take 1 tablet by mouth three times daily as needed (dizziness). - glucagon (GVOKE HYPOPEN 2-PACK) 0.5 mg/0.1 mL AutoInjector Use to treat severe hypoglycemic episode as recommend on product labeling. - glucose 4 gram chewable tablet Take 4 tablets by mouth as needed. - Insulin [place], Disposable, (BD ULTRA-FINE DONNIE PEN NEEDLE) 32 gauge x 5/32 Use as directed with insulin injections three times daily - albuterol HFA (VENTOLIN HFA) 90 mcg/actuation inhaler Inhale 2 Puffs as instructed every 4 hours as needed for Wheezing/Shortness of Breath. - Insulin Syringe-Needle U-100 (BD INSULIN SYRINGE UF II) 0.5 mL 31 gauge x 5/16 syrg Use as directed with insulin injections three times daily - Blood Sugar Diagnostic, Drum (ACCU-CHEK COMPACT TEST) Strp Testing 2-3 times daily - lancets(FREESTYLE LANCETS) Use as directed. - COSOPT 2 %-0.5 % EYE DROPS Use in eyes. - ASPIRIN 81 MG TAB Take 81 mg by mouth once daily. - B COMPLEX CAP Take 1 capsule by mouth once daily. - MULTIVITAMIN TAB Take 1 tablet by mouth once daily. Problem List As Of Date 09/12/2024 Noted Resolved Diabetes mellitus (HCC) [E11.9] 11/17/2015 Primary hypertension [I10] PURE HYPERCHOLESTEROLEM [E78.00] CARPAL TUNNEL SYNDROME [G56.00] GLAUCOMA NOS [H40.9] RECTAL AND ANAL HEMORRHAGE [K62.5] BENIGN NEOPLASM LG BOWEL [D12.6] 02/18/2007 GASTROINTEST HEMORR NOS [K92.2] 02/18/2007 INT HEMORRHOID W/O COMPL [K64.8] 02/18/2007 LUMB/LUMBOSAC DISC DEGEN [M51.379] 05/02/2008 SCIATICA [M54.30] 08/31/2008 BPH with obstruction/lower urinary tract sympto*01/21 (more content not included)... Normal [facility] CNOVon 07-03-2024 CNOV Office Visit (PHMEWO ) -- JING MCKEON ([id number]) 1955 M Date Time Provider Department 07/03/24 2:00 PM JESSICA RICKS [facility] During your visit today, we recorded the following information about you: Jessica Ricks RPh 07/03/2024 3:30 PM Signed Primary Care Pharmacy Visit CC (Reason for Consult): (E11.29, R80.9, Z79.4) Type 2 diabetes mellitus with microalbuminuria, with long-term current use of insulin (HCC) (primary encounter diagnosis) Goal(s): A1c <8% Last Collaborating Provider Visit: 06/23/24 with OPHELIA Wilkes Mike is a 68 year old male presenting for follow up visit in person. Patient consents to pharmacy collaborative practice agreement. Last Pharmacy Visit: 03/20/24 HPI: Reports doing well States BGs have been up and down lately, states A1c even went up a little bit. States this morning had a lower reading Admits he has had some missed doses of insulin lately, also including Ozempic Has good supply of insulins and Ozempic Gets Luiza sensors through [employer] Current DM Medications: Ozempic 1 mg once weekly on Mondays Tresiba 20 units once daily at bedtime Novolog 10 units with breakfast, 10 units with lunch, 12 units with dinner Diet Denies any recent changes Appetite still on lower side GLYCEMIC CONTROL: Glucometer present at visit: Yes Hypoglycemia: Yes CGM Data Past medical history reviewed. ALLERGIES No Known Allergies Current Outpatient Medications Medication Sig Dispense Refill metoprolol succinate ER (TOPROL XL) 50 mg 24 hr tablet Take 1 tablet by mouth two times a day. 60 tablet 5 gabapentin (NEURONTIN) 300 mg capsule Take 1 capsule by mouth two times a day for 90 days. (Patient not taking: Reported on 02/21/2024) 60 capsule 2 Cholecalciferol, Vitamin D3, 125 mcg (5,000 unit) cap Take 1 capsule by mouth once daily. inulin-chromium picolinate (FIBER SELECT GUMMIES) 2-100 gram-mcg chew Take 1 Dose by mouth once daily. flash glucose sensor (FREESTYLE LUIZA 2 SENSOR) kit Ust to check blood sugars once daily. Please apply free voucher for 1 sensor, pt to bring in 6 Each 3 dorzolamide HCl/timolol maleat (DORZOLAMIDE-TIMOLOL OPHTHALMIC) Use 1 Drop in both eyes two times a day. beta-carotene,A,-vits C,E/mins (OCUVITE ORAL) Take 1 tablet by mouth once daily. LATANOPROST, PF, OPHTHALMIC Use 1 Drop in both eyes every morning. tamsulosin (FLOMAX) 0.4 mg Take 2 capsules by mouth daily at bedtime. (Patient taking differently: Take 0.4 mg by mouth two times a day.) 180 capsule 3 simvastatin (ZOCOR) 40 mg tablet Take 1 tablet by mouth daily at bedtime. 90 tablet 3 enalapril (VASOTEC) 20 mg tablet Take 1 tablet by mouth two times a day. 180 tablet 3 flash glucose scanning reader (FREESTYLE LUIZA 2 READER) Use to check blood sugars once a day. 1 Each 0 insulin aspart U-100 (NOVOLOG FLEXPEN U-100 INSULIN) 100 unit/mL (3 mL) Inject 10 units before breakfast, 10 units before lunch, and 12 units before dinner as directed. Through [employer] Patient Assistance. insulin degludec (TRESIBA FLEXTOUCH U-100) 100 unit/mL (3 mL) injection pen Inject 20 Units subcutaneously every morning. Patient Assistance Medication (Patient taking differently: Inject 20 Units subcutaneously daily with dinner. Patient Assistance Medication) semaglutide (OZEMPIC) 1 mg/dose (4 mg/3 mL) pen Inject 1 mg subcutaneously one time a week. meclizine (ANTIVERT) 25 mg tab Take 1 tablet by mouth three times daily as needed (dizziness). 30 tablet 1 glucagon (GVOKE HYPOPEN 2-PACK) 0.5 mg/0.1 mL AutoInjector Use to treat severe hypoglycemic episode as recommend on product labeling. (Patient not taking: Reported on 03/19/2023) 0.2 mL 3 glucose 4 gram chewable tablet Take 4 tablets by mouth as needed. 30 tablet 2 Insulin [place], Disposable, (BD ULTRA-FINE DONNIE PEN NEEDLE) 32 gauge x 5/32 Use as directed with insulin injections three times daily 100 Each 11 albuterol HFA (VENTOLIN HFA) 90 mcg/actuation inhaler Inhale 2 Puffs as instructed every 4 hours as needed for Wheezing/Shortness of Breath. 18 g 3 Insulin Syringe-Needle U-100 (BD INSULIN SYRINGE UF II) 0.5 mL 31 gauge x 5/16 syrg Use as directed with insulin injections three times daily 300 Syringe 3 Blood Sugar Diagnostic, Drum (ACCU-CHEK COMPACT TEST) Strp Testing 2-3 times daily (Patient taking differently: 4 Strips four times daily.) 306 Strip 3 lancets(FREESTYLE LANCETS) Use as directed. (Patient not taking: Reported on 09/17/2023) 300 3 COSOPT 2 %-0.5 % EYE DROPS Use in eyes. 0 ASPIRIN 81 MG TAB Take 81 mg by mouth once daily. 0 B COMPLEX CAP Take 1 capsule by mouth once daily. 0 MULTIVITAMIN TAB Take 1 tablet by mouth once daily. 0 No current facility-administered medications for this visit. Pill bottles are not present. Adherence: reports missed doses. Rx coverage: Payor: MEDICARE / Plan: MEDICA (more content not included)... Normal [facility]encia 07-03-2024 SAE Telephone (PHMEWO) -- JING MCKEON ([id number]) 1955 M Date Time Provider Department 07/03/24 JESSICA RICKS During your visit today, we recorded the following information about you: Jessica Ricks RPh 07/03/2024 3:04 PM Signed Received patient signatures, scanned to Teams for pharmacy PAP team. Completed provider form for renewal; needs provider signature. Once provider signs, please fax to pharmacy PAP team ATTN: Brandon at [phone] Jessica Ricks, PharmD, BCACP Primary Care Clinical Cylinder Valve Repairer Ami Young LPN 07/04/2024 2:01 PM Signed Completed and faxed to number provided. Brandon Rios 07/14/2024 6:04 PM Signed 2024 Mike [employer] renewal application faxed to program 07/14/2024. (SEE CONFIRMATION BELOW) Brandon Rios [facility] E-Mail : [email or web address] Phone : [phone] Fax : [phone] Brandon Rios 07/17/2024 12:42 PM Signed Patient has been approved with Mike Nordisk for medication(s) Ozempic, Novolog, Tresiba AND Pen [place] through 07/22/2025. Patient Mike [employer] ID is : [id number] Below is fax sent to PAP Team alerting of patient approval in program through 07/22/2025. PAP Team will alert pharmacist of patient approval. Brandon Rios [facility] E-Mail : [email or web address] Phone : [phone] Fax : [phone] Allergies As of Date: 07/03/2024 (No Known Allergies) Date Reviewed: 07/03/2024 Reviewed by: Jessica Ricks RPh - Fully Assessed Reason for Visit: Forms [073] Cmt: Mike [employer] Patient Assistance Program 2024 Renewal Prescriptions as of 07/17/2024 - metoprolol succinate ER (TOPROL XL) 50 mg 24 hr tablet Take 1 tablet by mouth two times a day. - gabapentin (NEURONTIN) 300 mg capsule Take 1 capsule by mouth two times a day for 90 days. - Cholecalciferol, Vitamin D3, 125 mcg (5,000 unit) cap Take 1 capsule by mouth once daily. - inulin-chromium picolinate (FIBER SELECT GUMMIES) 2-100 gram-mcg chew Take 1 Dose by mouth once daily. - flash glucose sensor (FREESTYLE LUIZA 2 SENSOR) kit Ust to check blood sugars once daily. Please apply free voucher for 1 sensor, pt to bring in - dorzolamide HCl/timolol maleat (DORZOLAMIDE-TIMOLOL OPHTHALMIC) Use 1 Drop in both eyes two times a day. - beta-carotene,A,-vits C,E/mins (OCUVITE ORAL) Take 1 tablet by mouth once daily. - LATANOPROST, PF, OPHTHALMIC Use 1 Drop in both eyes every morning. - tamsulosin (FLOMAX) 0.4 mg Take 2 capsules by mouth daily at bedtime. - simvastatin (ZOCOR) 40 mg tablet Take 1 tablet by mouth daily at bedtime. - enalapril (VASOTEC) 20 mg tablet Take 1 tablet by mouth two times a day. - flash glucose scanning reader (FREESTYLE LUIZA 2 READER) Use to check blood sugars once a day. - insulin aspart U-100 (NOVOLOG FLEXPEN U-100 INSULIN) 100 unit/mL (3 mL) Inject 10 units before breakfast, 10 units before lunch, and 12 units before dinner as directed. Through [employer] Patient Assistance. - insulin degludec (TRESIBA FLEXTOUCH U-100) 100 unit/mL (3 mL) injection pen Inject 20 Units subcutaneously every morning. Patient Assistance Medication - semaglutide (OZEMPIC) 1 mg/dose (4 mg/3 mL) pen Inject 1 mg subcutaneously one time a week. - meclizine (ANTIVERT) 25 mg tab Take 1 tablet by mouth three times daily as needed (dizziness). - glucagon (GVOKE HYPOPEN 2-PACK) 0.5 mg/0.1 mL AutoInjector Use to treat severe hypoglycemic episode as recommend on product labeling. - glucose 4 gram chewable tablet Take 4 tablets by mouth as needed. - Insulin [place], Disposable, (BD ULTRA-FINE DONNIE PEN NEEDLE) 32 gauge x 5/32 Use as directed with insulin injections three times daily - albuterol HFA (VENTOLIN HFA) 90 mcg/actuation inhaler Inhale 2 Puffs as instructed every 4 hours as needed for Wheezing/Shortness of Breath. - Insulin Syringe-Needle U-100 (BD INSULIN SYRINGE UF II) 0.5 mL 31 gauge x 5/16 syrg Use as directed with insulin injections three times daily - Blood Sugar Diagnostic, Drum (ACCU-CHEK COMPACT TEST) Strp Testing 2-3 times daily - lancets(FREESTYLE LANCETS) Use as directed. - COSOPT 2 %-0.5 % EYE DROPS Use in eyes. - ASPIRIN 81 MG TAB Take 81 mg by mouth once daily. - B COMPLEX CAP Take 1 capsule by mouth once daily. - MULTIVITAMIN TAB Take 1 tablet by mouth once daily. Problem List As Of Date 07/03/2024 Noted Resolved Diabetes mellitus (HCC) [E11.9] 11/17/2015 Primary hypertension [I10] PURE HYPERCHOLESTEROLEM [E78.00] CARPAL TUNNEL SYNDROME [G56.00] GLAUCOMA NOS [H40.9] RECTAL AND ANAL HEMORRHAGE [K62.5] BENIGN NEOPLASM LG BOWEL [D12.6] 02/18/2007 GASTROINTEST HEMORR NOS [K92.2] 02/18/2007 INT HEMORRHOID W/O COMPL [K64.8] 02/18/2007 LUMB/LUMBOSAC DISC DEGEN [M51.379] 05/02/2008 SCIATICA [M54.30] 08/31/2008 BPH with obstruction/lower urinary tract sympto*02/12/2012 Type (more content not included)... Normal [facility] JING [facility]KEON ([id number]) 1955 M Date Time Provider Department 06/26/24 JESSICA RICKS DONNA During your visit today, we recorded the following information about you: Jessica Ricks RPh 06/26/2024 9:26 AM Signed Provider will be out of office/working remotely due to weather; today's appointment needs rescheduling. Called patient to reschedule or switch to phone visit; unable to reach patient. Unable to leave VM on home phone number, VM not set up. Left VM on spouse's phone number with message cancelling today's in office visit and phone number to call to reschedule appointment. Jessica Ricks PharmD, NATHALY Primary Care Clinical Cylinder Valve Repairer Jessica Ricks RPh 06/26/2024 10:49 AM Signed Called and spoke with patient. Rescheduled today's appointment for 07/03/24. Jessica Ricks PharmD, NATHALY Primary Care Clinical Cylinder Valve Repairer Allergies As of Date: 06/26/2024 (No Known Allergies) Date Reviewed: 06/23/2024 Reviewed by: Caitlin Limon LPN - Fully Assessed Reason for Visit: Appointment [186] Prescriptions as of 06/26/2024 - metoprolol succinate ER (TOPROL XL) 50 mg 24 hr tablet Take 1 tablet by mouth two times a day. - gabapentin (NEURONTIN) 300 mg capsule Take 1 capsule by mouth two times a day for 90 days. - Cholecalciferol, Vitamin D3, 125 mcg (5,000 unit) cap Take 1 capsule by mouth once daily. - inulin-chromium picolinate (FIBER SELECT GUMMIES) 2-100 gram-mcg chew Take 1 Dose by mouth once daily. - flash glucose sensor (FREESTYLE LUIZA 2 SENSOR) kit Ust to check blood sugars once daily. Please apply free voucher for 1 sensor, pt to bring in - dorzolamide HCl/timolol maleat (DORZOLAMIDE-TIMOLOL OPHTHALMIC) Use 1 Drop in both eyes two times a day. - beta-carotene,A,-vits C,E/mins (OCUVITE ORAL) Take 1 tablet by mouth once daily. - LATANOPROST, PF, OPHTHALMIC Use 1 Drop in both eyes every morning. - tamsulosin (FLOMAX) 0.4 mg Take 2 capsules by mouth daily at bedtime. - simvastatin (ZOCOR) 40 mg tablet Take 1 tablet by mouth daily at bedtime. - enalapril (VASOTEC) 20 mg tablet Take 1 tablet by mouth two times a day. - flash glucose scanning reader (GeneAssessSTYLE LUIZA 2 READER) Use to check blood sugars once a day. - insulin aspart U-100 (NOVOLOG FLEXPEN U-100 INSULIN) 100 unit/mL (3 mL) Inject 10 units before breakfast, 10 units before lunch, and 12 units before dinner as directed. Through [employer] Patient Assistance. - insulin degludec (TRESIBA FLEXTOUCH U-100) 100 unit/mL (3 mL) injection pen Inject 20 Units subcutaneously every morning. Patient Assistance Medication - semaglutide (OZEMPIC) 1 mg/dose (4 mg/3 mL) pen Inject 1 mg subcutaneously one time a week. - meclizine (ANTIVERT) 25 mg tab Take 1 tablet by mouth three times daily as needed (dizziness). - glucagon (GVOKE HYPOPEN 2-PACK) 0.5 mg/0.1 mL AutoInjector Use to treat severe hypoglycemic episode as recommend on product labeling. - glucose 4 gram chewable tablet Take 4 tablets by mouth as needed. - Insulin [place], Disposable, (BD ULTRA-FINE DONNIE PEN NEEDLE) 32 gauge x 5/32 Use as directed with insulin injections three times daily - albuterol HFA (VENTOLIN HFA) 90 mcg/actuation inhaler Inhale 2 Puffs as instructed every 4 hours as needed for Wheezing/Shortness of Breath. - Insulin Syringe-Needle U-100 (BD INSULIN SYRINGE UF II) 0.5 mL 31 gauge x 5/16 syrg Use as directed with insulin injections three times daily - Blood Sugar Diagnostic, Drum (ACCU-CHEK COMPACT TEST) Strp Testing 2-3 times daily - lancets(FREESTYLE LANCETS) Use as directed. - COSOPT 2 %-0.5 % EYE DROPS Use in eyes. - ASPIRIN 81 MG TAB Take 81 mg by mouth once daily. - B COMPLEX CAP Take 1 capsule by mouth once daily. - MULTIVITAMIN TAB Take 1 tablet by mouth once daily. Problem List As Of Date 06/26/2024 Noted Resolved Diabetes mellitus (HCC) [E11.9] 11/17/2015 Primary hypertension [I10] PURE HYPERCHOLESTEROLEM [E78.00] CARPAL TUNNEL SYNDROME [G56.00] GLAUCOMA NOS [H40.9] RECTAL AND ANAL HEMORRHAGE [K62.5] BENIGN NEOPLASM LG BOWEL [D12.6] 02/18/2007 GASTROINTEST HEMORR NOS [K92.2] 02/18/2007 INT HEMORRHOID W/O COMPL [K64.8] 02/18/2007 LUMB/LUMBOSAC DISC DEGEN [M51.379] 05/02/2008 SCIATICA [M54.30] 08/31/2008 BPH with obstruction/lower urinary tract sympto*02/12/2012 Type 2 diabetes mellitus with microalbuminuria,*11/17/19 16 History of colonic polyps [Z86.0100] 05/23/2017 Diverticulosis of large intestine without hemor*05/23/2017 Colon cancer screening [Z12.11] 12/07/2023 Encounter Status:Closed by JESSICA RICKS on 06/26/24 [facility] CNOVon 06-23-2024 CNOV Office Visit (INTMWS ) -- JING MCKEON ([id number]) 1955 M Date Time Provider Department 06/23/24 1:00 PM JOSSY CARUSO INTMWS During your visit today, we recorded the following information about you: Pulse Respiration Blood pressure Weight 76/minute 16/minute 127/72 76.2 kg Jossy Caruso APRN.CNS 06/23/2024 1:40 PM Signed SUBJECTIVE: Influenza Vaccine(1) due on 03/23/2024 Covid-19 Vaccine( season) due on 03/23/2024 OSVALDO Castaneda Mike is a 68 year old male. 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 He notes a closed fracture of his left hip December 22, [address] Schreiber at [facility]. He has completed physical therapy. He is doing better. Missed his most recent appointment, has rescheduled. Notes that her blood sugars have been trending upward. Has followed with PharmD regarding DM. Notes CGM is very helpful. He notes this is working well for him. No low blood sugars, hs noted trending upward. Has missed some medication doses. Notes no GI upset or abdominal pain. DIABETES MELLITUS: Notes BS typically controlled. No recent low blood sugars. No report excessive thirst or increased frequency of urination, chest pain or dyspnea , numbness, tingling or pain in extremities, new or unusual visual symptoms, low sugar/hypoglycemic reactions, weight loss/gain, lightheadedness/dizziness, and bowel changes/loose stools. Patient's last HgA1C was Hemoglobin A1C (%) Date Value 06/20/2024 8.2 11/03/2023 7.4 06/27/2021 7.7 11/01/2020 9.3 ) HTN: Without report of headache, chest pain, palpitations, dyspnea, peripheral edema, orthopnea, fatigue, and PND. Last 14 Encounter BP Readings: Date: BP: 06/23/2024 127/72 02/21/2024 126/78 01/15/2024 124/60 12/07/2023 181/80 11/12/2023 136/84 10/22/2023 160/80 09/17/2023 144/76[Marcella Gee notified of blood pressure.[ 08/10/2023 120/78 03/19/2023 128/60 11/13/2022 138/72 09/15/2022 138/80 07/27/2022 131/71 07/14/2022 136/78 07/03/2022 162/94 Hyperlipidemia. Mr. Mckeon reports doing well on current therapy of simvastatin His most recent lipid panels are: Cholesterol, Total (mg/dL) Date Value 06/20/2024 154 07/14/2023 144 06/27/2021 149 11/01/2020 147 HDL Cholesterol (mg/dL) Date Value 06/20/2024 59 07/14/2023 67 06/27/2021 62 11/01/2020 49 LDL Cholesterol (mg/dL) Date Value 06/20/2024 76 07/14/2023 68 06/27/2021 67 11/01/2020 66 Triglyceride (mg/dL) Date Value 06/20/2024 95 07/14/2023 47 06/27/2021 102 11/01/2020 162 The 10-year ASCVD risk score (Katya CHAPARRO, et al., 2019) is: 29.7% Values used to calculate the score: Age: 68 years Sex: Male Is Non- : No Diabetic: Yes Tobacco smoker: No Systolic Blood Pressure: 126 mmHg Is BP treated: Yes HDL Cholesterol: 59 mg/dL Total Cholesterol: 154 mg/dL BPH symptoms are stable. He has seen urology. MRI completed. He has a follow up visit scheduled. Review of Systems Constitutional: Negative. Respiratory: Negative. Cardiovascular: Negative. Endocrine: Negative. Objective There were no vitals taken for this visit. Physical Exam Vitals and nursing note reviewed. Constitutional: Appearance: Normal appearance. HENT: Head: Normocephalic and atraumatic. Eyes: Conjunctiva/sclera: Conjunctivae normal. Neck: Thyroid: No thyromegaly. Vascular: Normal carotid pulses. No JVD. Cardiovascular: Rate and Rhythm: Normal rate and regular rhythm. Pulses: Carotid pulses are 2+ on the right side and 2+ on the left side. Radial pulses are 2+ on the right side and 2+ on the left side. Dorsalis pedis pulses are 1+ on the left side. Pulmonary: Effort: Pulmonary effort is normal. Breath sounds: Normal breath sounds. Abdominal: General: Bowel sounds are normal. Palpations: Abdomen is soft. Musculoskeletal: Left lower leg: Edema (scant non pitting edema) present. Feet: Left foot: Skin integrity: Skin integrity normal. Skin: General: Skin is warm and dry. Neurological: General: No focal deficit present. Mental Status: He is alert and oriented to person, place, and time. ALLERGIES No Known Allergies Medications metoprolol succinate ER (TOPROL XL) 50 (more content not included)... Normal [facility] ALBUMIN/CREATININE RATIO, UR INEon 11-29-2024 Albumin DL <= 20 mg/L (U) [Mass/Vol] 33.2 mg/L Normal [facility] Comment on above: Order Comment: Speci men Type: URINE SPECIMENOrdering Facility: [facility] Address: [address] [place] [address] Performed By: #### U ACR ####[facility] LABCLIA [id number] [address] STATES OF [facility] Albumin/Creatinin e (U) [Mass ratio] 33 mg/g High <30 [facility] Comment on above: Order Comment: Speci men Type: URINE SPECIMENOrdering Facility: [facility] Address: [address] [place] [address] Result Comment: Adul t Male and Female Nephrotic Criteria: <30 mg/g is considered normal to mildly increased 30-300 mg/g is considered moderately increased >300 mg/g is considered severely increased KDIGO. (2013). KDIGO 2012 Clinical Practice Guideline for the Evaluation and Management of Chronic Kidney Disease. Official Journal of the International Society of Nephrology, 3(1), 1-150. Performed By: #### U ACR ####[facility] LABCLIA [id number] [place] [address] [place] Creatinine (U) [Mass/Vol] 101.2 mg/dL Normal 20.0-300.0 [facility] Comment on above: Order Comment: Speci men Type: URINE SPECIMENOrdering Facility: [facility] Address: [address] [place] [address] Performed By: #### U ACR ####[facility] LABCLIA [id number] [place] [address] [place] Comprehensive metabolic 2000 panelon 06-20-2024 Albumin [Mass/Vol] 4.0 g/dL Normal 3.9-4.9 [facility] Comment on above: Order Comment: Speci men Type: BLOOD SPECIMENOrdering Facility: [facility] Address: [address] [place] [address] Performed By: #### 2 4323-8, 63108-4 ####[facility] LABCLIA [id number] [place] [address] [place] ALP [Catalytic activity/Vol] 136 U/L High 38-113 [facility] Comment on above: Order Comment: Speci men Type: BLOOD SPECIMENOrdering Facility: [facility] Address: [address] [place] [address] Performed By: #### 2 4323-8, 03422-5 ####[facility] LABCLIA [id number] [place] [address] [place] ALT [Catalytic activity/Vol] 14 U/L Normal 10-54 [facility] Comment on above: Order Comment: Speci men Type: BLOOD SPECIMENOrdering Facility: [facility] Address: [address] [place] [address] Performed By: #### 2 4323-8, 14069-6 ####[facility] LABCLIA [id number] [place] [address] [place] Anion gap [Moles/Vol] 10 mmol/L Normal 8-15 [facility] Comment on above: Order Comment: Speci men Type: BLOOD SPECIMENOrdering Facility: [facility] Address: [address] [place] [address] Performed By: #### 2 4323-8, 58707-2 ####[facility] LABCLIA [id number] [place] [address] [place] AST [Catalytic activity/Vol] 22 U/L Normal 14-40 [facility] Comment on above: Order Comment: Speci men Type: BLOOD SPECIMENOrdering Facility: [facility] Address: [address] [place] [address] Performed By: #### 2 4323-8, 40887-6 ####[facility] LABCLIA [id number] [place] [id number] [place] Bilirubin [Mass/Vol] 0.4 mg/dL Normal 0.2-1.3 [facility] Comment on above: Order Comment: Speci men Type: BLOOD SPECIMENOrdering Facility: [facility] Address: [address] [place] [address] Performed By: #### 2 4323-8, 00849-1 ####[facility] LABCLIA [id number] [place] [address] [place] Calcium [Mass/Vol] 9.7 mg/dL Normal 8.5-10.2 [facility] Comment on above: Order Comment: Speci men Type: BLOOD SPECIMENOrdering Facility: [facility] Address: [address] [place] [address] Performed By: #### 2 4323-8, 81311-7 ####[facility] LABCLIA [id number] [place] [address] [place] Chloride [Moles/Vol] 104 mmol/L Normal 98-107 [facility] Comment on above: Order Comment: Speci men Type: BLOOD SPECIMENOrdering Facility: [facility] Address: [address] [place] [address] Performed By: #### 2 4323-8, 63864-1 ####[facility] LABCLIA [id number] [place] [address] [place] CO2 [Moles/Vol] 25 mmol/L Normal 22-30 [facility] Comment on above: Order Comment: Speci men Type: BLOOD SPECIMENOrdering Facility: [facility] Address: [address] [place], [place] [id number] Performed By: #### 2 4323-8, 39166-5 ####[facility] LABCLIA [id number] [place] [address] [place] Creatinine [Mass/Vol] 0.78 mg/dL Normal 0.73-1.22 [facility] Comment on above: Order Comment: Speci men Type: BLOOD SPECIMENOrdering Facility: [facility] Address: [address] [place] [address] Performed By: #### 2 4323-8, 90321-9 ####[facility] LABIA [id number] [place] [address] [place] Creatinine and Glomerular filtration rate.predicted panel (S/P/Bld) 96 mL/min/1.73m??? Normal >=60 [facility] Comment on above: Order Comment: Marivel garcia Type: BLOOD SPECIMENOrdering Facility: [facility] Address: [address] [place] [address] Result Comment: Kia mated Glomerular Filtration Rate (eGFR) is calculated using the 2020 CKD-EPI creatinine equation. This equation utilizes serum creatinine, sex, and age as parameters. The creatinine assay has traceable calibration to isotope dilution-mass spectrometry. Refer to KDIGO guidelines for clinical interpretation. In patients with unstable renal function, e.g. those with acute kidney injury, the eGFR may not accurately reflect actual GFR. Performed By: #### 2 4323-8, 36777-5 ####[facility] LABIA [id number] [place] [address] [place] Glucose [Mass/Vol] 210 mg/dL High 74-99 [facility] Comment on above: Order Comment: Marivel garcia Type: BLOOD SPECIMENOrdering Facility: [facility] Address: [address] [place] [address] Result Comment: The [place] Diabetes Association (ADA) provides guidance for cutoff values for fasting glucose and random glucose. The ADA defines fasting as no caloric intake for at least 8 hours. Fasting plasma glucose results between 100 to 125 [...] Standards of Medical Care in Diabetes 2016, [place] Diabetes Association. Diabetes Care. 2016.39(Suppl 1). Performed By: #### 2 4323-8, 15078-9 ####[facility] LABCLIA [id number] [place] [address] [place] Potassium [Moles/Vol] 4.8 mmol/L Normal 3.7-5.1 [facility] Comment on above: Order Comment: Speci men Type: BLOOD SPECIMENOrdering Facility: [facility] Address: [address] [place] [address] Performed By: #### 2 4323-8, 75245-5 ####[facility] LABCLIA [id number] [place] [address] [place] Protein [Mass/Vol] 6.9 g/dL Normal 6.3-8.0 [facility] Comment on above: Order Comment: Speci men Type: BLOOD SPECIMENOrdering Facility: [facility] Address: [address] [place] [address] Performed By: #### 2 4323-8, 77246-7 ####[facility] LABIA [id number] [place] [address] [place] Sodium [Moles/Vol] 139 mmol/L Normal 136-144 [facility] Comment on above: Order Comment: Speci men Type: BLOOD SPECIMENOrdering Facility: [facility] Address: [address] [place] [address] Performed By: #### 2 4323-8, 50983-8 ####[facility] LABCLIA [id number] [place] [id number] [place] Urea nitrogen [Mass/Vol] 14 mg/dL Normal 9-24 [facility] Comment on above: Order Comment: Speci men Type: BLOOD SPECIMENOrdering Facility: [facility] Address: [address] [place] [address] Performed By: #### 2 4323-8, 66276-5 ####[facility] LABCLIA [id number] [place] [address] [place] HbA1c (Bld)on 06-20-2024 Average glucose Estimated from glycated hemoglobin (Bld) [Mass/Vol] 189 mg/dL Normal [facility] Comment on above: Order Comment: Marivel garcia Type: BLOOD SPECIMENOrdering Facility: [facility] Address: [address] [place] [address] Result Comment: eAG: (Estimated average glucose) is a calculated value from HgbA1c and is hospital insurance representative of the average blood glucose level in the last 2-3 month period. Performed By: #### 5 5454-3 ####[facility] LABCLIA [id number] [place] [address] [place] HbA1c (Bld) [Mass fraction] 8.2 % High 4.3-5.6 [facility] Comment on above: Order Comment: Marivel garcia Type: BLOOD SPECIMENOrdering Facility: [facility] Address: [address] [place] [address] Result Comment: Amer ican Diabetes Association guidelines indicate that patients with HgbA1c in the range 5.7-6.4% are at increased risk for development of diabetes, and intervention by lifestyle modification may be beneficial. HgbA1c greater or equal to 6.5% is considered diagnostic of diabetes. Performed By: #### 5 5454-3 ####[facility] LABCLIA [id number] [place] [address] [place] Lipid 1996 panelon Cholesterol [Mass/Vol] 154 mg/dL Normal <200 [facility] Comment on above: Order Comment: Marivel garcia Type: BLOOD SPECIMENOrdering Facility: [facility] Address: [address] [place] [address] Result Comment: <200 mg/dL, Desirable 200-239 mg/dL, Borderline high >239 mg/dL, High Performed By: #### 2 4323-8, 08427-3 ####[facility] LABCLIA [id number] [place] [address] [place] Cholesterol in HDL [Mass/Vol] 59 mg/dL Normal >39 [facility] Comment on above: Order Comment: Speci men Type: BLOOD SPECIMENOrdering Facility: [facility] Address: [address] [place] [address] Result Comment: 40-5 9 mg/dL, Acceptable >59 mg/dL, High: Negative risk factor for coronary heart disease <40 mg/dL, Low: Positive risk factor for coronary heart disease Performed By: #### 2 4323-8, 09359-2 ####[facility] LABCLIA [id number] [address] [place] Cholesterol in LDL [Mass/Vol] 76 mg/dL Normal <100 [facility] Comment on above: Order Comment: Zinai jose Type: BLOOD SPECIMENOrdering Facility: [facility] Address: [address] [place] [address] Result Comment: <100 mg/dL, Optimal 100-129 mg/dL, Near optimal/above optimal 130-159 mg/dL, Borderline high 160-189 mg/dL, High >189 mg/dL, Very high Secondary prevention optimal LDL Cholesterol levels are recommended to be < 70 mg/dL Performed By: #### 2 4323-8, 21273-6 ####[facility] LABCLIA [id number] [address] Cholesterol in LDL/Cholesterol in HDL [Mass ratio] 1.29 {ratio} Normal <2.54 [facility] Comment on above: Order Comment: Speci jose Type: BLOOD SPECIMENOrdering Facility: [facility] Address: [address] [place] [address] Result Comment: Refe rence: 1. National Cholesterol Education Program ATP III Guideline At-A-Glance Quick Desk Reference: National Heart, Lung, and Blood [place]. National Institutes of Health. 2001: NIH Publication No. 01-3305. 2. An International Atherosclerosis Society position paper: global recommendations for the management of dyslipidemia: executive summary, Atherosclerosis. 2014: 232(2):410-413. Performed By: #### 2 4323-8, 60816-5 ####[facility] LABCLIA [id number] [address] [address] [place] Cholesterol in VLDL [Mass/Vol] 19 mg/dL Normal <30 [facility] Comment on above: Order Comment: Speci men Type: BLOOD SPECIMENOrdering Facility: [facility] Address: [address] [place] [address] Performed By: #### 2 4323-8, 97173-7 ####[facility] LABCLIA [id number] [place] [address] [place] Cholesterol non HDL [Mass/Vol] 95 mg/dL Normal <130 [facility] Comment on above: Order Comment: Speci men Type: BLOOD SPECIMENOrdering Facility: [facility] Address: [address] [place] [address] Result Comment: <130 mg/dL, Optimal 130-159 mg/dL, Near optimal/above optimal 160-189 mg/dL, Borderline high 190-219 mg/dL, High >219 mg/dL, Very high Secondary prevention optimal non HDL Cholesterol levels are recommended to be <100 mg/dL Performed By: #### 2 4323-8, 04505-5 ####[facility] LABCLIA [id number] [place] [address] [place] Cholesterol.total /Cholesterol in HDL [Mass ratio] 2.61 {ratio} Normal <5.10 [facility] Comment on above: Order Comment: Speci men Type: BLOOD SPECIMENOrdering Facility: [facility] Address: [address] [place] [address] Performed By: #### 2 4323-8, 24444-0 ####[facility] LABCLIA [id number] [place] [address] [place] FASTING TIME 12 hrs Normal [facility] Comment on above: Order Comment: Speci men Type: BLOOD SPECIMENOrdering Facility: [facility] Address: [address] [place] [address] Performed By: #### 2 4323-8, 53201-5 ####[facility] LABCLIA [id number] [place] [address] [place] Triglyceride [Mass/Vol] 95 mg/dL Normal <150 [facility] Comment on above: Order Comment: Speci men Type: BLOOD SPECIMENOrdering Facility: [facility] Address: [address] [place] [address] Result Comment: <150 mg/dL, Normal 150-199 mg/dL, Borderline high 200-499 mg/dL, High >499 mg/dL, Very high Performed By: #### 2 4323-8, 64453-8 ####[facility] LABCLIA [id number] [place] [address] [place] PSA/PROSTATE SPECIFIC ANTIGE N SCREENINGon 06-20-2024 Prostate specific Ag [Mass/Vol] 6.30 ng/mL High <2.60 [facility] Comment on above: Order Comment: Speci men Type: BLOOD SPECIMENOrdering Facility: [facility] Address: [address] [place] [address] Result Comment: Tota l PSA test methodology used is the Electrochemiluminescence Immunoassay by [employer]. Total PSA values by differing methodologies cannot be interchanged. For an individual patient, the significance of a PSA level should be interpreted in a broad clinical context, including age, race, family history, digital rectal exam, prostate size, results of prior testing (prostate biopsy, free PSA, PCA3), and use of 5-alpha reductase inhibitors. Considering the high incidence of asymptomatic cancer in the general population that may not pose an ultimate risk to a patient, the decision to recommend urological evaluation or prostate biopsy should be individualized after consideration of all these factors. REFERENCE: Neda Laird M.D., M.P.H., Paul Guzmán M.D., Ph.D., Jeancarlos Del Valle M.D., Michele Zelaya, M.P.H., Kiana Segovia Sc.Darryl. Effect of Verification Bias on Screening for Prostate Cancer by Measurement of Prostatic Specific Antigen. N Engl J Med 2003,349:335-42. Performed By: #### P SAS1 ####[facility] ALLEGRA [id number] [address] [place] Inocencia 06-12-2024 CNPN Telephone (PHMEWO) -- JING MCKEON ([id number]) 1955 M Date Time Provider Department 06/12/24 JESSICA RICKS During your visit today, we recorded the following information about you: Jessica Ricks RPh 06/12/2024 1:18 PM Signed Primary Care Pharmacy Rescheduling Outreach Call center, please contact patient and reschedule in person visit for Diabetes management within ~4 week(s). (Visit length: 30 minutes) Thank you, Jessica Ricks, PharmD, BCACP Primary Care Clinical Cylinder Valve Repairer 06/12/2024 1:17 PM Kiana Krishna PSS 06/12/2024 1:43 PM Signed Telephoned the patient regarding missed appointment. New appt on 06/26/24. Allergies As of Date: 06/12/2024 (No Known Allergies) Date Reviewed: 03/20/2024 Reviewed by: Jessica Ricks RPh - Fully Assessed Reason for Visit: Missed Appointment [1304] Cmt: Pharmacist Visit Rescheduling Prescriptions as of 06/12/2024 - metoprolol succinate ER (TOPROL XL) 50 mg 24 hr tablet Take 1 tablet by mouth two times a day. - gabapentin (NEURONTIN) 300 mg capsule Take 1 capsule by mouth two times a day for 90 days. - Cholecalciferol, Vitamin D3, 125 mcg (5,000 unit) cap Take 1 capsule by mouth once daily. - inulin-chromium picolinate (FIBER SELECT GUMMIES) 2-100 gram-mcg chew Take 1 Dose by mouth once daily. - flash glucose sensor (FREESTYLE LUIZA 2 SENSOR) kit Ust to check blood sugars once daily. Please apply free voucher for 1 sensor, pt to bring in - dorzolamide HCl/timolol maleat (DORZOLAMIDE-TIMOLOL OPHTHALMIC) Use 1 Drop in both eyes two times a day. - beta-carotene,A,-vits C,E/mins (OCUVITE ORAL) Take 1 tablet by mouth once daily. - LATANOPROST, PF, OPHTHALMIC Use 1 Drop in both eyes every morning. - tamsulosin (FLOMAX) 0.4 mg Take 2 capsules by mouth daily at bedtime. - simvastatin (ZOCOR) 40 mg tablet Take 1 tablet by mouth daily at bedtime. - enalapril (VASOTEC) 20 mg tablet Take 1 tablet by mouth two times a day. - flash glucose scanning reader (FREESTYLE LUIZA 2 READER) Use to check blood sugars once a day. - insulin aspart U-100 (NOVOLOG FLEXPEN U-100 INSULIN) 100 unit/mL (3 mL) Inject 10 units before breakfast, 10 units before lunch, and 12 units before dinner as directed. Through [employer] Patient Assistance. - insulin degludec (TRESIBA FLEXTOUCH U-100) 100 unit/mL (3 mL) injection pen Inject 20 Units subcutaneously every morning. Patient Assistance Medication - semaglutide (OZEMPIC) 1 mg/dose (4 mg/3 mL) pen Inject 1 mg subcutaneously one time a week. - meclizine (ANTIVERT) 25 mg tab Take 1 tablet by mouth three times daily as needed (dizziness). - glucagon (GVOKE HYPOPEN 2-PACK) 0.5 mg/0.1 mL AutoInjector Use to treat severe hypoglycemic episode as recommend on product labeling. - glucose 4 gram chewable tablet Take 4 tablets by mouth as needed. - Insulin [place], Disposable, (BD ULTRA-FINE DONNIE PEN NEEDLE) 32 gauge x 5/32 Use as directed with insulin injections three times daily - albuterol HFA (VENTOLIN HFA) 90 mcg/actuation inhaler Inhale 2 Puffs as instructed every 4 hours as needed for Wheezing/Shortness of Breath. - Insulin Syringe-Needle U-100 (BD INSULIN SYRINGE UF II) 0.5 mL 31 gauge x 5/16 syrg Use as directed with insulin injections three times daily - timolol maleate (TIMOPTIC) 0.25 % ophthalmic solution Use 1 Drop in both eyes two times a day. - Blood Sugar Diagnostic, Drum (ACCU-CHEK COMPACT TEST) Strp Testing 2-3 times daily - lancets(FREESTYLE LANCETS) Use as directed. - XALATAN 0.005 % EYE DROPS Use 1 Drop in both eyes once daily. - COSOPT 2 %-0.5 % EYE DROPS Use in eyes. - ASPIRIN 81 MG TAB Take 81 mg by mouth once daily. - B COMPLEX CAP Take 1 capsule by mouth once daily. - MULTIVITAMIN TAB Take 1 tablet by mouth once daily. 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 16 History of colonic polyps [Z86.0100] 05/23/2017 Diverticulosis of large intestine without hemor*05/23/2017 Colon cancer screening [Z12.11] 12/07/2023 Encounter Status:Closed by KIANA KRISHNA on 06/12/24 Normal [facility] CNCDesmond 05-07-2024 CNCO Letter Text [facility] CNPArgelia 05-06-2024 OPHELIAN Telephone (UROD) -- JING MCKEON ([id number]) 1955 M Date Time Provider Department 05/06/24 MARCELLA GEE During your visit today, we recorded the following information about you: Mery Siddiqui RN 05/06/2024 9:54 AM Signed ----- Message from Marcella Gee APRN.LIZZ JACINTO sent at 05/05/2024 4:37 PM EDT ----- Team - Can you call the patient and inform him his Prostate MRI is negative. I would like him to follow up with me in 3 months. Either at [place] or [place]. IMPRESSION: No focal lesions suspicious for clinically significant prostate cancer (PI-RADS 2). No pelvic lymphadenopathy. No suspicious osseous lesions. Marcella Gee DNP, OPHELIA Department of Urology [facility] Mery Siddiqui RN 05/06/2024 9:58 AM Signed Called and patient's voicemail full, but able to leave a message on 's voicemail to call back to get message of results. Mery Siddiqui RN 05/06/2024 3:29 PM Signed Attempted to call again and unable to leave message. Jesus Diego RN 05/07/2024 10:11 AM Signed Called patient and he did not answer and voicemail not set up Jesus Diego RN 05/07/2024 10:11 AM Signed Called and patient's voicemail full, but able to leave a message on 's voicemail to call back to get message of results. Letter with directions and results typed and printed and mailed to patient home address. Michele Waller LPN 05/13/2024 1:37 PM Signed Patient presented in person to clinic. Verified name and date of . Informed of results- verbalizes understanding and scheduled follow up through PSR. Michele Waller LPN Allergies As of Date: 05/06/2024 (No Known Allergies) Date Reviewed: 03/20/2024 Reviewed by: Jessica Ricks RP - Fully Assessed Reason for Visit: Results - Mri [3561] Prescriptions as of 05/13/2024 - metoprolol succinate ER (TOPROL XL) 50 mg 24 hr tablet Take 1 tablet by mouth two times a day. - gabapentin (NEURONTIN) 300 mg capsule Take 1 capsule by mouth two times a day for 90 days. - Cholecalciferol, Vitamin D3, 125 mcg (5,000 unit) cap Take 1 capsule by mouth once daily. - inulin-chromium picolinate (FIBER SELECT GUMMIES) 2-100 gram-mcg chew Take 1 Dose by mouth once daily. - flash glucose sensor (FREESTYLE LUIZA 2 SENSOR) kit Ust to check blood sugars once daily. Please apply free voucher for 1 sensor, pt to bring in - dorzolamide HCl/timolol maleat (DORZOLAMIDE-TIMOLOL OPHTHALMIC) Use 1 Drop in both eyes two times a day. - beta-carotene,A,-vits C,E/mins (OCUVITE ORAL) Take 1 tablet by mouth once daily. - LATANOPROST, PF, OPHTHALMIC Use 1 Drop in both eyes every morning. - tamsulosin (FLOMAX) 0.4 mg Take 2 capsules by mouth daily at bedtime. - simvastatin (ZOCOR) 40 mg tablet Take 1 tablet by mouth daily at bedtime. - enalapril (VASOTEC) 20 mg tablet Take 1 tablet by mouth two times a day. - flash glucose scanning reader (FREESTYLE LUIZA 2 READER) Use to check blood sugars once a day. - insulin aspart U-100 (NOVOLOG FLEXPEN U-100 INSULIN) 100 unit/mL (3 mL) Inject 10 units before breakfast, 10 units before lunch, and 12 units before dinner as directed. Through [employer] Patient Assistance. - insulin degludec (TRESIBA FLEXTOUCH U-100) 100 unit/mL (3 mL) injection pen Inject 20 Units subcutaneously every morning. Patient Assistance Medication - semaglutide (OZEMPIC) 1 mg/dose (4 mg/3 mL) pen Inject 1 mg subcutaneously one time a week. - meclizine (ANTIVERT) 25 mg tab Take 1 tablet by mouth three times daily as needed (dizziness). - glucagon (GVOKE HYPOPEN 2-PACK) 0.5 mg/0.1 mL AutoInjector Use to treat severe hypoglycemic episode as recommend on product labeling. - glucose 4 gram chewable tablet Take 4 tablets by mouth as needed. - Insulin [place], Disposable, (BD ULTRA-FINE DONNIE PEN NEEDLE) 32 gauge x 5/32 Use as directed with insulin injections three times daily - albuterol HFA (VENTOLIN HFA) 90 mcg/actuation inhaler Inhale 2 Puffs as instructed every 4 hours as needed for Wheezing/Shortness of Breath. - Insulin Syringe-Needle U-100 (BD INSULIN SYRINGE UF II) 0.5 mL 31 gauge x 5/16 syrg Use as directed with insulin injections three times daily - timolol maleate (TIMOPTIC) 0.25 % ophthalmic solution Use 1 Drop in both eyes two times a day. - Blood Sugar Diagnostic, Drum (ACCU-CHEK COMPACT TEST) Strp Testing 2-3 times daily - lancets(FREESTYLE LANCETS) Use as directed. - XALATAN 0.005 % EYE DROPS Use 1 Drop in both eyes once daily. - COSOPT 2 %-0.5 % EYE DROPS Use in eyes. - ASPIRIN 81 MG TAB Take 81 mg by mouth once daily. - B COMPLEX CAP Take 1 capsule by mouth once daily. - MULTIVITAMIN TAB Take 1 tablet by mouth once daily. Problem List As Of Date 05/06/2024 Noted Resolved Diabetes mellitus (HCC) [E11.9] 11/17/2015 Primary hypertension [I10] PURE HYPERCHOLESTEROLEM [E78.00] CARPAL (more content not included)... Normal [facility] MRI 3D POST PROCESSINGon MRI 3D POST PROCESSING * * *Final Report* * * DATE OF EXAM: Apr 25 2024 12:00PM [facility] 0280 - MRI 3D POST PROCESSING / PROCEDURE REASON: Elevated PSA * * * * Physician Interpretation * * * * EXAMINATION: MRI PELVIS WITHOUT AND WITH IV CONTRAST (MULTIPARAMETRIC PROSTATE MRI) CLINICAL HISTORY: 68 years old being evaluated for prostate cancer. No prior biopsy. Previous biopsy: None reported PSA: 6.60 ng/mL (11/03/2023) 33% free; Prior therapy: None. TECHNIQUE: Multiparametric MRI of the prostate and pelvis performed on a 3T scanner utilizing phase pelvic coil. Sequences obtained: multiplanar T2-WI with small FOV; Axial DWI with multiple B-values and creation of ADC-maps; DCE T1-weighted images through the prostate obtained before, during and after the administration of intravenous gadolinium. THREE-DIMENSIONAL IMAGIND imaging including complex volumetric analysis of the prostate was performed on a dedicated stand-alone workstation by the interpreting physician, with images reviewed and archived. CONTRAST: IV: 14 cc of Dotarem. COMPARISON: None RESULT: Prostate: 6.3 x 5.6 x 5.5 cm Gland volume: 93 cc Post biopsy hemorrhage: Absent Peripheral zone: Linear and/or wedge-shaped T2/ADC map hypointensities (PI-RADS 2). Transition zone: Transition zone hypertrophy, without focal abnormalities suspicious for clinically significant disease (PI-RADS 1). Neurovascular bundle: Unremarkable. Seminal vesicles: Unremarkable. Adjacent Organ Involvement: Not applicable. Lymph nodes: No enlarged pelvic lymph nodes. Bladder: Unremarkable. Pelvic bones: No suspicious pelvic osseous lesions. Other Findings: Small fat-containing left inguinal hernia. IMPRESSION: No focal lesions suspicious for clinically significant prostate cancer (PI-RADS 2). No pelvic lymphadenopathy. No suspicious osseous lesions. PI-QUAL v1: 3-3-3-5 Number of targets created for MR/US fusion biopsy: Peripheral zone: 0 Transition zone: 0 Platform used: DynaCAD/Uronav If present, targets were numbered in order of level of suspicion for clinically significant prostate cancer (Grade Group 2 or higher). PI-RADS v2.1 Assessment Categories and clinically significant cancer detection rates (CDR): PI-RADS 1: Very low (CDR: 6%) PI-RADS 2: Low (CDR: 6%) PI-RADS 3: Intermediate (CDR: 20%) PI-RADS 4: High (CDR: 55%) PI-RADS 5: Very high (CDR: 83%) Source: Bernadine B, et al. Update on PI-RADS Version 2.1 Diagnostic Performance Benchmarks for Prostate MRI: Systematic Review and [place]-Analysis. Radiology. 2023;312(8):[id number] PMID: [id number]. Manager Spa: TIFFANY Transcribe Date/Time: May 03 2024 4:12P Dictated by : CAMDEN KHAN MD This examination was interpreted and the report reviewed and electronically signed by: CAMDEN KHAN MD on May 03 2024 4:18PM EST [id number] Normal [facility] MRI PROSTATE W/WO CONTRASTon 04-25-2024 MRI PROSTATE W/WO CONTRAST * * *Final Report* * * DATE OF EXAM: Apr 25 2024 12:00PM [facility] 0751 - MRI PROSTATE W/WO CONTRAST / PROCEDURE REASON: multiple diagnoses * * * * Physician Interpretation * * * * EXAMINATION: MRI PELVIS WITHOUT AND WITH IV CONTRAST (MULTIPARAMETRIC PROSTATE MRI) CLINICAL HISTORY: 68 years old being evaluated for prostate cancer. No prior biopsy. Previous biopsy: None reported PSA: 6.60 ng/mL (11/03/2023) 33% free; Prior therapy: None. TECHNIQUE: Multiparametric MRI of the prostate and pelvis performed on a 3T scanner utilizing phase pelvic coil. Sequences obtained: multiplanar T2-WI with small FOV; Axial DWI with multiple B-values and creation of ADC-maps; DCE T1-weighted images through the prostate obtained before, during and after the administration of intravenous gadolinium. THREE-DIMENSIONAL IMAGIND imaging including complex volumetric analysis of the prostate was performed on a dedicated stand-alone workstation by the interpreting physician, with images reviewed and archived. CONTRAST: IV: 14 cc of Dotarem. COMPARISON: None RESULT: Prostate: 6.3 x 5.6 x 5.5 cm Gland volume: 93 cc Post biopsy hemorrhage: Absent Peripheral zone: Linear and/or wedge-shaped T2/ADC map hypointensities (PI-RADS 2). Transition zone: Transition zone hypertrophy, without focal abnormalities suspicious for clinically significant disease (PI-RADS 1). Neurovascular bundle: Unremarkable. Seminal vesicles: Unremarkable. Adjacent Organ Involvement: Not applicable. Lymph nodes: No enlarged pelvic lymph nodes. Bladder: Unremarkable. Pelvic bones: No suspicious pelvic osseous lesions. Other Findings: Small fat-containing left inguinal hernia. IMPRESSION: No focal lesions suspicious for clinically significant prostate cancer (PI-RADS 2). No pelvic lymphadenopathy. No suspicious osseous lesions. PI-QUAL v1: 3-3-3-5 Number of targets created for MR/US fusion biopsy: Peripheral zone: 0 Transition zone: 0 Platform used: Inbox/Ecinity If present, targets were numbered in order of level of suspicion for clinically significant prostate cancer (Grade Group 2 or higher). PI-RADS v2.1 Assessment Categories and clinically significant cancer detection rates (CDR): PI-RADS 1: Very low (CDR: 6%) PI-RADS 2: Low (CDR: 6%) PI-RADS 3: Intermediate (CDR: 20%) PI-RADS 4: High (CDR: 55%) PI-RADS 5: Very high (CDR: 83%) Source: Bernadine Rodriguez et al. Update on PI-RADS Version 2.1 Diagnostic Performance Benchmarks for Prostate MRI: Systematic Review and [place]-Analysis. Radiology. 2023;312):[id number] PMID: [id number]. Manager Spa: TIFFANY Transcribe Date/Time: May 03 2024 4:12P Dictated by : CAMDEN KHAN MD This examination was interpreted and the report reviewed and electronically signed by: CAMDEN KHAN MD on May 03 2024 4:18PM EST [id number] [facility] XR EYE 2V FOREIGN BODYon XR EYE 2V FOREIGN BODY * * *Final Report* * * DATE OF EXAM: Apr 25 2024 11:02AM [facility] [id number] - XR EYE 2V FOREIGN BODY / PROCEDURE REASON: MRI CLEARANCE * * * * Physician Interpretation * * * * EXAMINATION: XR EYE 2V FOREIGN BODY HISTORY: MRI CLEARANCE MRI CLEARANCE. TECHNIQUE: XR EYE 2V FOREIGN BODY Laterality: NOT APPLICABLE Number of different views (projections): 2 M: XB_1 COMPARISON: None RESULT: Two views of the orbits in the AP projection demonstrate a few dental amalgam. No radiopaque foreign bodies appreciated in the orbits. IMPRESSION: No orbital radiopaque foreign body to preclude MRI. Manager Spa: [facility] Transcribe Date/Time: Apr 25 2024 11:06A Dictated by : JOSE DE JESUS GAMEZ MD This examination was interpreted and the report reviewed and electronically signed by: JOSE DE JESUS GAMEZ MD on Apr 25 2024 11:07AM EST [id number] [facility] XR Orbit Views for foreign b odyon 04-25-2024 IMPRESSION: No orbital radiopaque foreign body to preclude MRI. Manager Spa: TIFFANY Transcribe Date/Time: Apr 25 2024 11:06A Dictated by : JOSE DE JESUS GAMEZ MD This examination was interpreted and the report reviewed and electronically signed by: JOSE DE JESUS GAMEZ MD on Apr 25 2024 11:07AM EST [facility] RADIOLOGY * * *Final Report* * * DATE OF EXAM: Apr 25 2024 11:02AM RHX [id number] - XR EYE 2V FOREIGN BODY / PROCEDURE REASON: MRI CLEARANCE * * * * Physician Interpretation * * * * EXAMINATION: XR EYE 2V FOREIGN BODY HISTORY: MRI CLEARANCE MRI CLEARANCE. TECHNIQUE: XR EYE 2V FOREIGN BODY Laterality: NOT APPLICABLE Number of different views (projections): 2 M: XB_1 COMPARISON: None RESULT: Two views of the orbits in the AP projection demonstrate a few dental amalgam. No radiopaque foreign bodies appreciated in the orbits. [facility] RADIOLOGY Provider, Everton Pascual - 04/25/2024 * * *Final Report* * * DATE OF EXAM: Apr 25 2024 11:02AM RHX [id number] - XR EYE 2V FOREIGN BODY / PROCEDURE REASON: MRI CLEARANCE * * * * Physician Interpretation * * * * EXAMINATION: XR EYE 2V FOREIGN BODY HISTORY: MRI CLEARANCE MRI CLEARANCE. TECHNIQUE: XR EYE 2V FOREIGN BODY Laterality: NOT APPLICABLE Number of different views (projections): 2 M: XB_1 COMPARISON: None RESULT: Two views of the orbits in the AP projection demonstrate a few dental amalgam. No radiopaque foreign bodies appreciated in the orbits. IMPRESSION IMPRESSION: No orbital radiopaque foreign body to preclude MRI. Manager Spa[facility] Transcribe Date/Time: Apr 25 2024 11:06A Dictated by : JOSE DE JESUS GAMEZ MD This examination was interpreted and the report reviewed and electronically signed by: JOSE DE JESUS GAMEZ MD on Apr 25 2024 11:07AM [facility] Radiology Study observation (narrative) [facility] XR Orbit Views for foreign b odyOrdered By: [facility]cf Provider on 04-25-2024 [facility] CNPNon 04-15-2024 CNPN Telephone (INTMWS) -- IJNG MCKEON ([id number]) 1955 M Date Time Provider Department 04/15/24 SON ZAMBRANO During your visit today, we recorded the following information about you: Ami Young LPN 04/15/2024 1:19 PM Signed Rec'd 5 boxes of novofine 32G tip pen needles 100 pen needles in each box. Lot number is [id number] Exp date 11/19/2038 Ami Young LPN 04/16/2024 2:47 PM Addendum These are ready for pick and shovel man in room 6 on the second floor, left side. Pt notified. He says he will get them either today or tomorrow he says. Ami Young LPN 04/16/2024 2:47 PM Signed Pt has picked these up. Allergies As of Date: 04/15/2024 (No Known Allergies) Date Reviewed: 03/20/2024 Reviewed by: Jessica Ricks [facility] - Fully Assessed Reason for Visit: pen needles from [employer] [Other] Prescriptions as of 04/16/2024 - gabapentin (NEURONTIN) 300 mg capsule Take 1 capsule by mouth two times a day for 90 days. - Cholecalciferol, Vitamin D3, 125 mcg (5,000 unit) cap Take 1 capsule by mouth once daily. - inulin-chromium picolinate (FIBER SELECT GUMMIES) 2-100 gram-mcg chew Take 1 Dose by mouth once daily. - flash glucose sensor (FREESTYLE LUIZA 2 SENSOR) kit Ust to check blood sugars once daily. Please apply free voucher for 1 sensor, pt to bring in - dorzolamide HCl/timolol maleat (DORZOLAMIDE-TIMOLOL OPHTHALMIC) Use 1 Drop in both eyes two times a day. - beta-carotene,A,-vits C,E/mins (OCUVITE ORAL) Take 1 tablet by mouth once daily. - LATANOPROST, PF, OPHTHALMIC Use 1 Drop in both eyes every morning. - tamsulosin (FLOMAX) 0.4 mg Take 2 capsules by mouth daily at bedtime. - simvastatin (ZOCOR) 40 mg tablet Take 1 tablet by mouth daily at bedtime. - enalapril (VASOTEC) 20 mg tablet Take 1 tablet by mouth two times a day. - metoprolol succinate ER (TOPROL XL) 25 mg 24 hr tablet Take 1 tablet by mouth once daily. - flash glucose scanning reader (GeneAssessSTCabify LUIAZ 2 READER) Use to check blood sugars once a day. - insulin aspart U-100 (NOVOLOG FLEXPEN U-100 INSULIN) 100 unit/mL (3 mL) Inject 10 units before breakfast, 10 units before lunch, and 12 units before dinner as directed. Through [employer] Patient Assistance. - insulin degludec (TRESIBA FLEXTOUCH U-100) 100 unit/mL (3 mL) injection pen Inject 20 Units subcutaneously every morning. Patient Assistance Medication - semaglutide (OZEMPIC) 1 mg/dose (4 mg/3 mL) pen Inject 1 mg subcutaneously one time a week. - meclizine (ANTIVERT) 25 mg tab Take 1 tablet by mouth three times daily as needed (dizziness). - glucagon (GVOKE HYPOPEN 2-PACK) 0.5 mg/0.1 mL AutoInjector Use to treat severe hypoglycemic episode as recommend on product labeling. - glucose 4 gram chewable tablet Take 4 tablets by mouth as needed. - Insulin [place], Disposable, (BD ULTRA-FINE DONNIE PEN NEEDLE) 32 gauge x 5/32 Use as directed with insulin injections three times daily - albuterol HFA (VENTOLIN HFA) 90 mcg/actuation inhaler Inhale 2 Puffs as instructed every 4 hours as needed for Wheezing/Shortness of Breath. - Insulin Syringe-Needle U-100 (BD INSULIN SYRINGE UF II) 0.5 mL 31 gauge x 5/16 syrg Use as directed with insulin injections three times daily - timolol maleate (TIMOPTIC) 0.25 % ophthalmic solution Use 1 Drop in both eyes two times a day. - Blood Sugar Diagnostic, Drum (ACCU-CHEK COMPACT TEST) Strp Testing 2-3 times daily - lancets(FREESTYLE LANCETS) Use as directed. - XALATAN 0.005 % EYE DROPS Use 1 Drop in both eyes once daily. - COSOPT 2 %-0.5 % EYE DROPS Use in eyes. - ASPIRIN 81 MG TAB Take 81 mg by mouth once daily. - B COMPLEX CAP Take 1 capsule by mouth once daily. - MULTIVITAMIN TAB Take 1 tablet by mouth once daily. 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 Trang Sweeney LPN Allergies As of Date: 04/08/2024 (No Known Allergies) Date Reviewed: 03/20/2024 Reviewed by: Jessica Ricks [facility] - Fully Assessed Reason for Visit: Patient assist meds [Other] Prescriptions as of 04/08/2024 - gabapentin (NEURONTIN) 300 mg capsule Take 1 capsule by mouth two times a day for 90 days. - Cholecalciferol, Vitamin D3, 125 mcg (5,000 unit) cap Take 1 capsule by mouth once daily. - inulin-chromium picolinate (FIBER SELECT GUMMIES) 2-100 gram-mcg chew Take 1 Dose by mouth once daily. - flash glucose sensor (GeneAssessSTYLE LUIZA 2 SENSOR) kit Ust to check blood sugars once daily. Please apply free voucher for 1 sensor, pt to bring in - dorzolamide HCl/timolol maleat (DORZOLAMIDE-TIMOLOL OPHTHALMIC) Use 1 Drop in both eyes two times a day. - beta-carotene,A,-vits C,E/mins (OCUVITE ORAL) Take 1 tablet by mouth once daily. - LATANOPROST, PF, OPHTHALMIC Use 1 Drop in both eyes every morning. - tamsulosin (FLOMAX) 0.4 mg Take 2 capsules by mouth daily at bedtime. - simvastatin (ZOCOR) 40 mg tablet Take 1 tablet by mouth daily at bedtime. - enalapril (VASOTEC) 20 mg tablet Take 1 tablet by mouth two times a day. - metoprolol succinate ER (TOPROL XL) 25 mg 24 hr tablet Take 1 tablet by mouth once daily. - flash glucose scanning reader (GeneAssessSTYLE LUIZA 2 READER) Use to check blood sugars once a day. - insulin aspart U-100 (NOVOLOG FLEXPEN U-100 INSULIN) 100 unit/mL (3 mL) Inject 10 units before breakfast, 10 units before lunch, and 12 units before dinner as directed. Through [employer] Patient Assistance. - insulin degludec (TRESIBA FLEXTOUCH U-100) 100 unit/mL (3 mL) injection pen Inject 20 Units subcutaneously every morning. Patient Assistance Medication - semaglutide (OZEMPIC) 1 mg/dose (4 mg/3 mL) pen Inject 1 mg subcutaneously one time a week. - meclizine (ANTIVERT) 25 mg tab Take 1 tablet by mouth three times daily as needed (dizziness). - glucagon (GVOKE HYPOPEN 2-PACK) 0.5 mg/0.1 mL AutoInjector Use to treat severe hypoglycemic episode as recommend on product labeling. - glucose 4 gram chewable tablet Take 4 tablets by mouth as needed. - Insulin [place], Disposable, (BD ULTRA-FINE DONNIE PEN NEEDLE) 32 gauge x 5/32 Use as directed with insulin injections three times daily - albuterol HFA (VENTOLIN HFA) 90 mcg/actuation inhaler Inhale 2 Puffs as instructed every 4 hours as needed for Wheezing/Shortness of Breath. - Insulin Syringe-Needle U-100 (BD INSULIN SYRINGE UF II) 0.5 mL 31 gauge x 5/16 syrg Use as directed with insulin injections three times daily - timolol maleate (TIMOPTIC) 0.25 % ophthalmic solution Use 1 Drop in both eyes two times a day. - Blood Sugar Diagnostic, Drum (ACCU-CHEK COMPACT TEST) Strp Testing 2-3 times daily - lancets(FREESTYLE LANCETS) Use as directed. - XALATAN 0.005 % EYE DROPS Use 1 Drop in both eyes once daily. - COSOPT 2 %-0.5 % EYE DROPS Use in eyes. - ASPIRIN 81 MG TAB Take 81 mg by mouth once daily. - B COMPLEX CAP Take 1 capsule by mouth once daily. - MULTIVITAMIN TAB Take 1 tablet by mouth once daily. 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,*11/17/19 16 History of colonic polyps [Z86.010] 05/23/2017 Diverticulosis of large intestine without hemor*05/23/2017 Colon cancer screening [Z12.11] 12/07/2023 Encounter Status:Closed by TRANG SWEENEY on 04/08/24 [facility] -- JING MCKEON ([id number]) 1955 M Date Time Provider Department 04/01/24 SON ZAMBRANO INTMWS During your visit today, we recorded the following information about you: Kasie Michel LPN 04/01/2024 11:59 AM Signed [facility] [address] [facility]. Chart Copy of medications dispensed to patient for home use April 01, 2024 Physician Initial: LT Jing Mckeon Medication: Tresiba FlexTouch Qty: 2 boxes Directions: Injection 20 unit subcutaneously every day with dinner Jing Mckeon Medication: Ozempic Qty: 4 Directions: Injection 1 mg subcutaneously one time a week Jing Mckeon Medication: NovoLog FlexPen Qty: 3 Directions: Injection 10 units before breakfast and lunch and 12 units before dinner. Medications administered, dispensed and verified on the date indicated above Patient has been notified to pick and shovel man medication in office. CANDACE Rodríguez Sue E, LPN 04/08/2024 1:50 PM Signed Patient picked up patient assist medications. Trang Sweeney LPN Allergies As of Date: 04/01/2024 (No Known Allergies) Date Reviewed: 03/20/2024 Reviewed by: Jessica Ricks [facility] - Fully Assessed Reason for Visit: Patient Assistance [4096] Prescriptions as of 04/08/2024 - gabapentin (NEURONTIN) 300 mg capsule Take 1 capsule by mouth two times a day for 90 days. - Cholecalciferol, Vitamin D3, 125 mcg (5,000 unit) cap Take 1 capsule by mouth once daily. - inulin-chromium picolinate (FIBER SELECT GUMMIES) 2-100 gram-mcg chew Take 1 Dose by mouth once daily. - flash glucose sensor (FREESTYLE LUIZA 2 SENSOR) kit Ust to check blood sugars once daily. Please apply free voucher for 1 sensor, pt to bring in - dorzolamide HCl/timolol maleat (DORZOLAMIDE-TIMOLOL OPHTHALMIC) Use 1 Drop in both eyes two times a day. - beta-carotene,A,-vits C,E/mins (OCUVITE ORAL) Take 1 tablet by mouth once daily. - LATANOPROST, PF, OPHTHALMIC Use 1 Drop in both eyes every morning. - tamsulosin (FLOMAX) 0.4 mg Take 2 capsules by mouth daily at bedtime. - simvastatin (ZOCOR) 40 mg tablet Take 1 tablet by mouth daily at bedtime. - enalapril (VASOTEC) 20 mg tablet Take 1 tablet by mouth two times a day. - metoprolol succinate ER (TOPROL XL) 25 mg 24 hr tablet Take 1 tablet by mouth once daily. - flash glucose scanning reader (FREESTYLE LUIZA 2 READER) Use to check blood sugars once a day. - insulin aspart U-100 (NOVOLOG FLEXPEN U-100 INSULIN) 100 unit/mL (3 mL) Inject 10 units before breakfast, 10 units before lunch, and 12 units before dinner as directed. Through [employer] Patient Assistance. - insulin degludec (TRESIBA FLEXTOUCH U-100) 100 unit/mL (3 mL) injection pen Inject 20 Units subcutaneously every morning. Patient Assistance Medication - semaglutide (OZEMPIC) 1 mg/dose (4 mg/3 mL) pen Inject 1 mg subcutaneously one time a week. - meclizine (ANTIVERT) 25 mg tab Take 1 tablet by mouth three times daily as needed (dizziness). - glucagon (GVOKE HYPOPEN 2-PACK) 0.5 mg/0.1 mL AutoInjector Use to treat severe hypoglycemic episode as recommend on product labeling. - glucose 4 gram chewable tablet Take 4 tablets by mouth as needed. - Insulin [place], Disposable, (BD ULTRA-FINE DONNIE PEN NEEDLE) 32 gauge x 5/32 Use as directed with insulin injections three times daily - albuterol HFA (VENTOLIN HFA) 90 mcg/actuation inhaler Inhale 2 Puffs as instructed every 4 hours as needed for Wheezing/Shortness of Breath. - Insulin Syringe-Needle U-100 (BD INSULIN SYRINGE UF II) 0.5 mL 31 gauge x 5/16 syrg Use as directed with insulin injections three times daily - timolol maleate (TIMOPTIC) 0.25 % ophthalmic solution Use 1 Drop in both eyes two times a day. - Blood Sugar Diagnostic, Drum (ACCU-CHEK COMPACT TEST) Strp Testing 2-3 times daily - lancets(FREESTYLE LANCETS) Use as directed. - XALATAN 0.005 % EYE DROPS Use 1 Drop in both eyes once daily. - COSOPT 2 %-0.5 % EYE DROPS Use in eyes. - ASPIRIN 81 MG TAB Take 81 mg by mouth once daily. - B COMPLEX CAP Take 1 capsule by mouth once daily. - MULTIVITAMIN TAB Take 1 tablet by mouth once daily. 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 Normal [facility] CBC-Complete Blood Cnt No Di ffon 03-26-2024 PATH REV Reviewed Normal [facility] Comment on above: Result Comment: . AMENDED REPORT 03/26/24 0905 PATH REV previously reported as: Reviewed Performed By: #### L 501.2300, L501.5200, L500.2500 #### [facility] [address] [place], [address] PT D/C Summary (1)on 024 PT D/C Summary (1) [facility] [place] [address] / REHABILITATION SERVICES DISCHARGE SUMMARY MR#: [id number] Acct: [id number] Name: JING MCKEON Rep #: [id number] : 1955 68 From: Red Howard PT, Cert. T, OCS Referring Dr.: Dr. Son Zambrano MD Status: REG RCR Insurance: MEDICARE PART A B [facility] Discharge Summary D/C summary: It has been my pleasure to treat JING MCKEON referred by Dr. Son Zambrano MD, with the diagnosis of CLOSED FRACTURE OF LEFT HIP REQUIRING OPERATIVE REPAIR ,MUSCLE WEAKNESS for a total of 9 visit(s). Discharge Date: 02/29/24 Please see the following information for a summary of their discharge status. Subjective Subjective: Patient doing much better Pain Left: Pain Intensity (Out of 10): 0 Overall Improvement % Improvement: 95 Objective Objective/Function: POSTURE: mild forward posture NEURO: denies paresthesia/tingling GAIT: reciprocal pattern with cane 2 point gait pattern (don't use cane around house reciprocal pattern) BALANCE: good - AROM: supine knee flexion 110 degrees ,hip flexion 95 degrees ,hip abduction 10 degrees MMT: ( peak force) left hip flexion 31./7 ,hip abduction 22 , quads 37.6 ,hamstrings 36.1 STAIRS: one step time with rails Goals Goal 1:: Patient to be I with HEP Goal Progress: Goal Met Goal 2:: Patient to ambulate with normal ricardo community distances. Goal Progress: Goal Met Goal 3:: Patient to improve peak force quads/hams/hip by 10-15# to improve function and gait . Goal Progress: Goal Met Goal 4:: Patient to improve LFES score by 5-10# to improve QOL and function. Goal Progress: Goal Met Goal 5:: Patient to improve AROM hip abduction /flexion and knee flexion by 5-10 degrees to improve gait and function. Goal Progress: Goal Met Plan Plan: D/C D/C Information Discharge Comments: HEP d/c sentence: If there are questions or concerns regarding this patient's physical therapy, please feel free to call me at [phone]. Thank you for the referral of this patient. Sincerely, Red Howard PT, Cert T, OCS Balance/Gait/Functional tests Balance/Special Test Scores Lower Extremity Functional Score: 51 TUG Test Time Seconds: 13.12 Tug Test: <20 sec.=mostly independent 30 Second Chair Rise Test Seconds: 11 Improvement % Improvement: 95 02/29/24 1450 CC: Dr. Son Zambrano MD JLA Signed Normal [facility] Inital Evaluation (1) - PTon 02-01-2024 Inital Evaluation (1) - PT [facility] [address] [place] [address] [address] [place] [address] / REHABILITATION SERVICES INITIAL EVALUATION MR#: [id number] Acct: [id number] Name: JING MCKEON Rep #: [id number] : 1955 68 From: Sandy Powell PT. T, OCS Referring Dr.: Dr. Son Zambrano MD Status: REG R Insurance: MEDICARE PART A B [facility] Patient's Visit Information Visit Information Visit Information: JING MCKEON is a 68 year old M referred to Physical Therapy by Dr. Son Zambrano MD with a diagnosis of CLOSED FRACTURE OF LEFT HIP REQUIRING OPERATIVE REPAIR ,MUSCLE WEAKNESS. Date of Evaluation: 02/01/24 Physical Therapist: Red Howard PT, Cert T, OCS Visit Plan Frequency: 2x /Week Duration: 4 Weeks Plan: S/P IM NAILING 12/23/23 AMBULATES WITH CANE PT INTERVENTIONS AROM ,STRENGTHENING LEFT QUADS/HAMS/HIP ,GAIT TRAINING ,BALANCE TRAINING ,ENDURANCE PROGRAM AND FUNCTIONAL STRENGTHENING Subjective Subjective: This 68 y/o male presents to physical therapy with left hip IM nailing on 12/23/[address] Schreiber at [facility] . Patient fell in garage and landed on left hip unable to get ,went to ER via ambulance . Patient had x-rays showed left hip intertrochanteric fracture. Patient went to Rehab on 4th floor and d/c to home with walker WBAT LE 01/08. Patient week with [facility] PT progressed to cane. Patient has min pain pain. Patient on oxycodone. Patient lives in 1 story home with raunch with 3 steps and ramp. Patient has tub/shower with grab bars. Patie is I with tub bath. I with dressing . Patient does cooking/cleaning. Patient has limitations with walking/standing extended with rest . Denies paresthesia/tingling . Patient not driving yet. Patient sleeping good. Patient affects QOL and function/housework tasks. 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 , Pain Left: Pain Intensity (Out of 10): 1 Pain Intensity Range: 10 Objective Objective: POSTURE: mild forward posture NEURO: denies paresthesia/tingling GAIT: reciprocal pattern with cane 2 point gait pattern decrease stance time antalgic gait ( ambulates short distances no device antalgic gait) BALANCE: fair+ AROM: supine knee flexion 110 degrees ,hip flexion 95 degrees ,hip abduction 10 degrees MMT: ( peak force) left hip flexion 13.7 ,hip abduction 0 , quads 13.2 ,hamstrings 22.1 STAIRS: one step time with rails Balance/Special Test Scores Lower Extremity Functional Score: 27 Goals Goal 1:: Patient to be I with HEP Goal Time Frame: 4-6 Weeks Goal 2:: Patient to ambulate with normal ricardo community distances. Goal Time Frame: 4-6 Weeks Goal 3:: Patient to improve peak force quads/hams/hip by 10-15# to improve function and gait . Goal Time Frame: 4-6 Weeks Goal 4:: Patient to improve LFES score by 5-10# to improve QOL and function. Goal Time Frame: 4-6 Weeks Goal 5:: Patient to improve AROM hip abduction /flexion and knee flexion by 5-10 degrees to improve gait and function. Goal Time Frame: 4-6 Weeks Rehabilitation Potential Physical Therapy Diagnosis: This patient underwent s/p IM nailing on 12/23/23 with decrease ROM ,weakness ,decrease gait and balance thus benefit from skilled PT Rehabilitation Potential: Good Anticipated Interventions Patient/Client Instruction: Educate patient on: Condition and Plan of Care For the Purpose of:: To decrease pain, To increase ROM, To improve muscle performance and motor function, To improve ability to perform ADL's, To increase tolerance to activity/condition/positio n, To improve ability of physical actions for home/community/work/leisur e, To improve gait and locomotor functions, To decrease soft tissue restriction, To increase flexibility/ROM, To improve endurance, To improve balance, To improve safety with gait and To improve tolerance to ADL's Therapeutic Exercise to Include: Strength training, Endurance training, Balance training, Gait and locomotor training and Active ROM Comment: QUADS/HAMS/HIP For the Purpose of:: To decrease pain, To increase ROM, To improve muscle performance and motor function, To improve ability to perform ADL's, To increase tolerance to activity/condition/positio n, To improve ability of physical actions for home/community/work/leisur e, To improve gait and locomotor functions, To increase flexibility/ROM, To improve endurance, To improve balance, To improve safety with gait and To improve tolerance to ADL's Text: Thank you for the opportunity to evaluate your patient. For Medicare and Medicare HMO plans, please review the plan of care and approve it. It will need to be FAXED BACK to us at [phone] for Medicare purposes. For Medicare only, by signing this I certify the plan of care. Please let me know if there are questions or concerns regarding this plan of care. Physician Signature:____ (more content not included)... Normal [facility] Bedside Glucoseon 01-09-2024 FINGERSTICK GLU 139 mg/dL High 74-106 [facility] Comment on above: Result Comment: RAHEEL GEMENT OF PATIENT CARE PER NURSING PROTOCOL Performed By: #### L 501.080 #### [facility] [address] [place], [place], [id number] FINGERSTICK GLU 130 mg/dL High 74-106 [facility] Comment on above: Result Comment: RAHEEL GEMENT OF PATIENT CARE PER NURSING PROTOCOL Performed By: #### L 501.2300, L501.5200, L500.2500 #### [facility] [address] [place], [address] Bedside Glucoseon 01-08-2024 FINGERSTICK GLU 96 mg/dL Normal 74-106 [facility] Comment on above: Result Comment: RAHEEL GEMENT OF PATIENT CARE PER NURSING PROTOCOL Performed By: #### L 501.2300, L501.5200, L500.2500 #### [facility] [facility] [address] [place], [address] FINGERSTICK GLU 89 mg/dL Normal 74-106 [facility] Comment on above: Result Comment: RAHEEL GEMENT OF PATIENT CARE PER NURSING PROTOCOL Performed By: #### L 501.2300, L501.5200, L500.2500 #### [facility] [address] [place], [address] FINGERSTICK GLU 76 mg/dL Normal 74-106 [facility] Comment on above: Result Comment: RAHEEL GEMENT OF PATIENT CARE PER NURSING PROTOCOL Performed By: #### L 501.080 #### [facility] [address] [place], [address] FINGERSTICK GLU 116 mg/dL High 74-106 [facility] Comment on above: Result Comment: RAHEEL GEMENT OF PATIENT CARE PER NURSING PROTOCOL Performed By: #### L 501.2300, L501.5200, L500.2500 #### [facility] [address] [place], [address] Discharge Instructionon 12-21 Discharge Instruction [facility] Medical Records Department [address] [place] [address] Instructions for Home/Discharge Instructions 01/08/24 1207 MR#: [id number] Acct: [id number] Name: JING MCKEON Rep #: [id number] : 1955 68 From: Bruce Medina DO PCP: Dr. Son Zambrano MD Status:ADM IN Discharge Instructions Diet Discharge Diet: - (1800 calorie, carbohydrate consistent, low fat, low salt diet. ) Activity Discharge Activity: May Not Drive, May Shower and Use Walker Weight Bearing Status: Full weight bearing Keep extremity elevated above heart level: Legs Dressing / Incision Call your doctor if your incision/area has: Continuous Slow Oozing, Sudden Increased Bleeding, Increased Pain/ Swelling, Increased Redness, Foul Smelling Discharge and Swelling at the incision site Call your doctor if you observe: Fever of 101 or Higher, Inability to urinate, Shortness of breath, Dizziness, Fainting spells, Swelling in the ankles, Chest pain, Increased palpitations (irregular heartbeat), Calf discomfort and Uncontrolled pain Cleanse incision/area with: Soap Water Additional Dressing/Incision Instructions:: No dressing is necessary unless your clothing is irritating the incision and then you may use a dry dressing to cover. Follow Up Care Please Follow Up With: Son Zambrano MD When: You will also need to follow up with Dr. Douglas Schreiber from Orthopedic surgery. Test Results: Test results from this visit will be discussed in further detail at your follow-up appointment, if applicable. Pending Tests Upon Discharge: none Discharge Plan Admission Admit Date/Time: 12/24/23 15:47 Primary Reason for Your Visit: Debility due to fall with L hip fx Attending Provider: Bruce Medina Primary Care Provider: Son Zambrano Instructions Patient Instructions: Caring for Your Incision Additional Instructions / Restrictions: 1. Blood sugars can be fickle sometime! For the most part your blood sugars have been well controlled. Things will likely change when you get home since your diet will probably change some. 2. You were retaining urine when you arrived on rehab, despite being on Flomax twice a day for your prostate. We added a medication called Proscar which helps to shrink the prostate. You have tolerated this medication well and you are no longer retaining urine. 3. You are only taking 1 blood pressure medication when you arrived on rehab and that was enalapril, also noticed Vasotec, 20 mg twice a day. Your blood pressures were too high and we added an additional blood pressure medication called metoprolol, also called Lopressor. You will be taking this medication twice a day. your BP is now controlled. the goal BP for you is less than 130/80. 4. It has been a pleasure having you on rehab. You have worked hard and you always have a great attitude. If you or Bruce have any questions after you leave rehab please do not hesitate to call me. Have a great summer and no falls! OFFICE: [phone] CELL: [phone] Discharge Orders/Prescriptions Prescriptions: New finasteride 5 mg Tablet 5 mg PO DAILY Qty: 30 0RF metoprolol succinate 50 mg Tablet Extended Release 24 Hr 50 mg PO BID Qty: 60 0RF oxycodone 5 mg Tablet 5 mg PO Q4H PRN PRN (Reason: pain 4-10) 7 Days Qty: 21 0RF Novolin R FlexPen 100 unit/mL (3 mL) insulin pen See Rx Instructions .ROUTE .COMPLEX Qty: 15 0RF Rx Instructions: 8 units with breakfast, 6 units with lunch and 10 units with supper. Continued aspirin [Adult Low Dose Aspirin] 81 mg tablet,delayed release (DR/EC) 81 mg PO QDAY vitamin B complex capsule 1 cap PO BID latanoprost 1 DROP bottle 1 drp ophthalmic (eye) DAILY Patient Comments: 1 drop each eye simvastatin 40 MG tablet 40 mg PO DAILY tamsulosin 0.4 MG capsule 0.4 mg PO BID timolol 5 ML drops 1 drp ophthalmic (eye) BID Patient Comments: 1 drop each eye dorzolamide 1 DROP bottle See Rx Instructions ophthalmic (eye) BID Patient Comments: 1 drop each eye Rx Instructions: into the eye(s) twice a day; enalapril maleate 20 MG tablet 20 mg PO BID Patient Comments: Changed acetaminophen 500 mg Tablet 1,000 mg PO Q8 PRN (Reason: pain) Qty: 1 0RF insulin glargine [Basaglar KwikPen U-100 Insulin] 100 unit/mL (3 mL) insulin pen 20 unit subcut QPM Qty: 15 0RF Discontinued aspirin 81 mg Tablet,Chewable 81 mg PO BIDCM 30 Days Qty: 0 0RF insulin lispro [Humalog KwikPen Insulin] 100 unit/mL Insulin Pen 7 unit subcut TIDAC Qty: 0 0RF oxycodone 5 mg Tablet 5 mg PO Q4H PRN PRN (Reason: Pain Score 4-10) Qty: 0 0RF Referrals / Follow Up: Son Zambrano MD [Primary Care Provider] - 01/18/24 2:00 pm Douglas Schreiber MD [Med Staff - Active Staff] - (Per office pt needs to contact them before appt can be made. pt aware.) Disposition Disposition (needs filled in before D/C Order ca (more content not included)... Normal [facility] Bedside Glucoseon 01-07-2024 FINGERSTICK GLU 303 mg/dL High 74-106 [facility] Comment on above: Result Comment: RAHEEL GEMENT OF PATIENT CARE PER NURSING PROTOCOL Performed By: #### L 501.080 #### [facility] [address] [place], [address] FINGERSTICK GLU 205 mg/dL High [facility]106 [facility] Comment on above: Result Comment: RAHEEL GEMENT OF PATIENT CARE PER NURSING PROTOCOL Performed By: #### L 501.080 #### [facility] [address] [place], [address] FINGERSTICK GLU 207 mg/dL High -106 [facility] Comment on above: Result Comment: RAHEEL GEMENT OF PATIENT CARE PER NURSING PROTOCOL Performed By: #### L 501.080 #### [facility] [address] [place], [address] FINGERSTICK GLU 170 mg/dL High [facility]106 [facility] Comment on above: Result Comment: RAHEEL GEMENT OF PATIENT CARE PER NURSING PROTOCOL Performed By: #### L 501.080 #### [facility] [address] [place], [address] HIP, UNI W/ Pelvis 2-3 Views on 01-07-2024 HIP, UNI W/ Pelvis 2-3 Views [facility] Imaging Services [address] [place] [address] HIP, UNI W/ Pelvis 2-3 Views MR#: [id number] Acct: [id number] Name: JING MCKEON Rep #: [id number] : 1955 M 68 From: Jean Marie Hazel MD PCP: Dr. Son Zambrano MD Status: ADM IN Study: HIP, UNI W/ Pelvis 2-3 Views Date of Exam: Exam# [id number] Ordering Dr: Bruce Medina DO [id number] STUDY: X-RAY - PELVIS AND LEFT HIP REASON FOR EXAM: Male, 68 years old. Post-op. TECHNIQUE: 3 views of the pelvis and left hip. COMPARISON: Pelvis and left hip radiographs dated 12/22/2023. FINDINGS: There is a non-specific bowel gas pattern. Normal visualized soft tissue structures. Normal bilateral iliac wings, sacroiliac joints and visualized sacrum. Normal bilateral superior and inferior pubic rami. Normal pubic symphysis. Normal bilateral ischial tuberosities. There is a new intramedullary nail in the left proximal femur with hip screw in place, fixating the previously seen intertrochanteric fracture. There is anatomic alignment. RAD/HIP, UNI W/ Pelvis 2-3 Views IMPRESSION: Intramedullary nail in the left proximal femur with hip screw in place, fixating the previously seen intertrochanteric fracture. Electronically Signed: Jean Marie Hazel MD at 8:19 EDT Reading Location ID and State: [address] [place] [address] , Service support , CC: Dr. Son Zambrano MD; Dr. Bruce Medina DO Manager Spa: Signed Normal [facility] Bedside Glucoseon 01-06-2024 FINGERSTICK GLU 201 mg/dL High 74-106 [facility] Comment on above: Result Comment: RAHEEL GUADARRAMA OF PATIENT CARE PER NURSING PROTOCOL Performed By: #### L 501.080 #### [facility] [place], [address] FINGERSTICK GLU 95 mg/dL Normal 74-106 [facility] Comment on above: Result Comment: RAHEEL GEMENT OF PATIENT CARE PER NURSING PROTOCOL Performed By: #### L 501.080 #### [facility] [address] [place], [address] FINGERSTICK GLU 156 mg/dL High 74-106 [facility] Comment on above: Result Comment: RAHEEL GEMENT OF PATIENT CARE PER NURSING PROTOCOL Performed By: #### L 501.2300, L501.5200, L500.2500 #### [facility] [address] [place], [address] FINGERSTICK GLU 101 mg/dL Normal 74-106 [facility] Comment on above: Result Comment: RAHEEL GEMENT OF PATIENT CARE PER NURSING PROTOCOL Performed By: #### L 501.080 #### [facility] [address] [place], [address] Bedside Glucoseon 01-05-2024 FINGERSTICK GLU 187 mg/dL High 74-106 [facility] Comment on above: Result Comment: RAHEEL GEMENT OF PATIENT CARE PER NURSING PROTOCOL Performed By: #### L 501.080 #### [facility] [address] [place], [address] FINGERSTICK GLU 199 mg/dL High 74-106 [facility] Comment on above: Result Comment: RAHEEL GEMENT OF PATIENT CARE PER NURSING PROTOCOL Performed By: #### L 501.080 #### [facility] [address] [place], [address] FINGERSTICK GLU 172 mg/dL High 74-106 [facility] Comment on above: Result Comment: RAHEEL GEMENT OF PATIENT CARE PER NURSING PROTOCOL Performed By: #### L 501.080 #### [facility] [address] [place], [address] FINGERSTICK GLU 73 mg/dL Low 74-106 [facility] Comment on above: Result Comment: RAHEEL GEMENT OF PATIENT CARE PER NURSING PROTOCOL Performed By: #### L 501.2300, L501.5200, L500.2500 #### [facility] [address] [place], [address] Basic Metabolic Profile (BMP )on 01-04-2024 BUN/CRE 26.3 RATIO High 10-20 [facility] Comment on above: Performed By: #### L 501.080 #### [facility] [address] [place], [address] CA,Total 9.3 mg/dL Normal 8.5-10.1 [facility] Comment on above: Performed By: #### L 501.080 #### [facility] [address] [place], [address] Chloride [Moles/Vol] 106 mmol/L Normal 98-107 [facility] Comment on above: Performed By: #### L 501.080 #### [facility] [address] [place], [address] CO2 [Moles/Vol] 29.0 mmol/L Normal 21.0-32.0 [facility] Comment on above: Performed By: #### L 501.080 #### [facility] [address] [place], [address] Creatinine [Mass/Vol] 0.87 mg/dL Normal 0.70-1.30 [facility] Comment on above: Result Comment: The validity of the calculated GFR GFRAA in patients over 70 years has not been determined. Clinical correlation is essential. Performed By: #### L 501.080 #### [facility] [address] [place], [address] ECRCL 79.86 ml/min Normal [facility] Comment on above: Performed By: #### L 501.080 #### [facility] [address] [place], [address] EST GFR - AA 111 mL/min Normal >60 [facility] Comment on above: Result Comment: Afri can Malaysian GFR Calc Performed By: #### L 501.080 #### [facility] [address] [place], [address] GAP 4 Low 5-15 [facility] Comment on above: Performed By: #### L 501.080 #### [facility] [address] [place], [address] GFR/1.73 sq M.predicted among non-blacks MDRD (S/P/Bld) [Vol rate/Area] 92 mL/min/{1.73_m2} Normal >60 [facility] Comment on above: Result Comment: Non- GFR Calc Performed By: #### L 501.080 #### [facility] [address] [place], [address] Glucose [Mass/Vol] 151 mg/dL High 74-106 [facility] Comment on above: Result Comment: Fast ing Glucose result greater than or equal to 126 mg/dL suggests DIABETES MELLITUS per A.D.A. criteria. Performed By: #### L 501.080 #### [facility] [address] [place], [address] Potassium [Moles/Vol] 4.4 mmol/L Normal 3.5-5.1 [facility] Comment on above: Result Comment: Slig ht Hemolysis, Result may be falsely increased. Performed By: #### L 501.080 #### [facility] [address] [place], [address] Sodium [Moles/Vol] 139 mmol/L Normal 136-145 [facility] Comment on above: Performed By: #### L 501.080 #### [facility] [address] [place], [address] Urea nitrogen [Mass/Vol] 23 mg/dL High 7-18 [facility] Comment on above: Performed By: #### L 501.080 #### [facility] [address] [place], [address] Bedside Glucoseon 01-04-2024 FINGERSTICK GLU 181 mg/dL High 74-106 [facility] Comment on above: Result Comment: RAHEEL GEMENT OF PATIENT CARE PER NURSING PROTOCOL Performed By: #### L 501.080 #### [facility] [address] [place], [address] FINGERSTICK GLU 188 mg/dL High 74-106 [facility] Comment on above: Result Comment: RAHEEL GEMENT OF PATIENT CARE PER NURSING PROTOCOL Performed By: #### L 501.2300, L501.5200, L500.2500 #### [facility] [address] [place], [address] FINGERSTICK GLU 157 mg/dL High 74-106 [facility] Comment on above: Result Comment: RAHEEL GEMENT OF PATIENT CARE PER NURSING PROTOCOL Performed By: #### L 501.080 #### [facility] [address] [place], [address] FINGERSTICK GLU 86 mg/dL Normal 74-106 [facility] Comment on above: Result Comment: RAHEEL GEMENT OF PATIENT CARE PER NURSING PROTOCOL Performed By: #### L 501.2300, L501.5200, L500.2500 #### [facility] [address] [place], [address] CBC-Complete Blood Cnt No Di ffon 01-04-2024 Erythrocyte distribution width (RBC) [Ratio] 15.1 % High 11.6-14.6 [facility] Comment on above: Performed By: #### L 501.080 #### [facility] [address] [place], [address] Hematocrit (Bld) [Volume fraction] 35.5 % Low 40-54 [facility] Comment on above: Performed By: #### L 501.080 #### [facility] [address] [place], [address] Hemoglobin (Bld) [Mass/Vol] 11.6 g/dL Low 13.0-16.5 [facility] Comment on above: Performed By: #### L 501.080 #### [facility] [address] [place], [address] MCH (RBC) [Entitic mass] 30.2 pg Normal 27.0-32.0 [facility] Comment on above: Performed By: #### L 501.080 #### [facility] [address] [place], [address] MCHC (RBC) [Mass/Vol] 32.7 g/dL Normal 32-36 [facility] Comment on above: Performed By: #### L 501.080 #### [facility] [address] [place], [address] MCV (RBC) [Entitic vol] 92.4 fL Normal 80-94 [facility] Comment on above: Performed By: #### L 501.080 #### [facility] [address] [place], [address] Platelet mean volume (Bld) [Entitic vol] 11.9 fL Normal 6.2-12.0 [facility] Comment on above: Performed By: #### L 501.080 #### [facility] [address] [place], [address] Platelets (Bld) [#/Vol] 384 10*3/uL Normal 150-450 [facility] Comment on above: Performed By: #### L 501.080 #### [facility] [address] [place], [address] RBC (Bld) [#/Vol] 3.84 10*6/uL Low 4.6-6.2 [facility] Comment on above: Performed By: #### L 501.080 #### [facility] [address] [place], [address] RDW SD 50.3 fl High 35.1-43.9 [facility] Comment on above: Performed By: #### L 501.080 #### [facility] [address] [place], [address] WBC (Bld) [#/Vol] 9.0 10*3/uL Normal 4.4-11.0 [facility] Comment on above: Performed By: #### L 501.080 #### [facility] [address] [place], [address] Bedside Glucoseon 01-03-2024 FINGERSTICK GLU 211 mg/dL High 74-106 [facility] Comment on above: Result Comment: RAHEEL GEMENT OF PATIENT CARE PER NURSING PROTOCOL Performed By: #### L 501.080 #### [facility] [address] [place], [address] FINGERSTICK GLU 92 mg/dL Normal 74-106 [facility] Comment on above: Result Comment: RAHEEL GEMENT OF PATIENT CARE PER NURSING PROTOCOL Performed By: #### L 501.2300, L501.5200, L500.2500 #### [facility] [address] [place], [address] FINGERSTICK GLU 134 mg/dL High 74-106 [facility] Comment on above: Result Comment: RAHEEL GEMENT OF PATIENT CARE PER NURSING PROTOCOL Performed By: #### L 501.2300, L501.5200, L500.2500 #### [facility] [address] [place], [address] FINGERSTICK GLU 114 mg/dL High 74-106 [facility] Comment on above: Result Comment: RAHEEL GEMENT OF PATIENT CARE PER NURSING PROTOCOL Performed By: #### L 501.2300, L501.5200, L500.2500 #### [facility] [address] [place], [address] Bedside Glucoseon 01-02-2024 FINGERSTICK GLU 140 mg/dL High 74-106 [facility] Comment on above: Result Comment: RAHEEL GEMENT OF PATIENT CARE PER NURSING PROTOCOL Performed By: #### L 501.2300, L501.5200, L500.2500 #### [facility] [address] [place], [address] FINGERSTICK GLU 79 mg/dL Normal 74-106 [facility] Comment on above: Result Comment: RAHEEL GEMENT OF PATIENT CARE PER NURSING PROTOCOL Performed By: #### L 501.2300, L501.5200, L500.2500 #### [facility] [address] [place], [address] FINGERSTICK GLU 180 mg/dL High -[address] [place] [address] Comment on above: Result Comment: RAHEEL GEMENT OF PATIENT CARE PER NURSING PROTOCOL Performed By: #### L 501.2300, L501.5200, L500.2500 #### [facility] [address] [place], [address] FINGERSTICK GLU 147 mg/dL High -[address] [place] [address] Comment on above: Result Comment: RAHEEL GEMENT OF PATIENT CARE PER NURSING PROTOCOL Performed By: #### L 501.080 #### [facility] [address] [place], [address] Bedside Glucoseon 01-01-2024 FINGERSTICK GLU 214 mg/dL High -[address] [place] [address] Comment on above: Result Comment: RAHEEL GEMENT OF PATIENT CARE PER NURSING PROTOCOL Performed By: #### L 501.080 #### [facility] [address] [place], [address] FINGERSTICK GLU 112 mg/dL High -106 [facility] Comment on above: Result Comment: RAHEEL GEMENT OF PATIENT CARE PER NURSING PROTOCOL Performed By: #### L 501.080 #### [facility] [address] [place], [address] FINGERSTICK GLU 79 mg/dL Normal 74-106 [facility] Comment on above: Result Comment: RAHEEL GEMENT OF PATIENT CARE PER NURSING PROTOCOL Performed By: #### L 501.080 #### [facility] [address] [place], [address] FINGERSTICK GLU 43 mg/dL Invalid Interpretation Code 74-106 [facility] Comment on above: Result Comment: [facility] k Given MANAGEMENT OF PATIENT CARE PER NURSING PROTOCOL Performed By: #### L 501.080 #### [facility] [address] [place], [address] FINGERSTICK GLU 77 mg/dL Normal 74-106 [facility] Comment on above: Result Comment: RAHEEL GEMENT OF PATIENT CARE PER NURSING PROTOCOL Performed By: #### L 501.080 #### [facility] [address] [place], [address] FINGERSTICK GLU 110 mg/dL High 74-106 [facility] Comment on above: Result Comment: RAHEEL GEMENT OF PATIENT CARE PER NURSING PROTOCOL Performed By: #### L 501.2300, L501.5200, L500.2500 #### [facility] [address] [place], [address] Bedside Glucoseon 12-31-2023 FINGERSTICK GLU 249 mg/dL High 74-106 [facility] Comment on above: Result Comment: RAHEEL GEMENT OF PATIENT CARE PER NURSING PROTOCOL Performed By: #### L 501.080 #### [facility] [address] [place], [address] FINGERSTICK GLU 96 mg/dL Normal 74-[address] [place] [address] Comment on above: Result Comment: RAHEEL GEMENT OF PATIENT CARE PER NURSING PROTOCOL Performed By: #### L 501.080 #### [facility] [address] [place], [address] FINGERSTICK GLU 136 mg/dL High 74-106 [facility] Comment on above: Result Comment: RAHEEL GEMENT OF PATIENT CARE PER NURSING PROTOCOL Performed By: #### L 501.2300, L501.5200, L500.2500 #### [facility] [address] [place], [address] FINGERSTICK GLU 138 mg/dL High 74-106 [facility] Comment on above: Result Comment: RAHEEL GEMENT OF PATIENT CARE PER NURSING PROTOCOL Performed By: #### L 501.080 #### [facility] [address] [place], [address] Bedside Glucoseon 12-30-2023 FINGERSTICK GLU 119 mg/dL High -106 [facility] Comment on above: Result Comment: RAHEEL GEMENT OF PATIENT CARE PER NURSING PROTOCOL Performed By: #### L 501.080 #### [facility] [address] [place], [address] FINGERSTICK GLU 112 mg/dL High 74-106 [facility] Comment on above: Result Comment: RAHEEL GEMENT OF PATIENT CARE PER NURSING PROTOCOL Performed By: #### L 501.2300, L501.5200, L500.2500 #### [facility] [address] [place], [address] FINGERSTICK GLU 171 mg/dL High 74-106 [facility] Comment on above: Result Comment: RAHEEL GEMENT OF PATIENT CARE PER NURSING PROTOCOL Performed By: #### L 501.080 #### [facility] [address] [place], [address] FINGERSTICK GLU 93 mg/dL Normal 74-106 [facility] Comment on above: Result Comment: RAHEEL GEMENT OF PATIENT CARE PER NURSING PROTOCOL Performed By: #### L 501.080 ####[facility] [address] [place], [address] Bedside Glucoseon 12-29-2023 FINGERSTICK GLU 120 mg/dL High 74-106 [facility] Comment on above: Result Comment: RAHEEL GEMENT OF PATIENT CARE PER NURSING PROTOCOL Performed By: #### L 501.080 #### [facility] [address] [place], [address] FINGERSTICK GLU 127 mg/dL High 74-106 [facility] Comment on above: Result Comment: RAHEEL GEMENT OF PATIENT CARE PER NURSING PROTOCOL Performed By: #### L 501.080 #### [facility] [address] [place], [address] FINGERSTICK GLU 176 mg/dL High 74-106 [facility] Comment on above: Result Comment: RAHEEL GEMENT OF PATIENT CARE PER NURSING PROTOCOL Performed By: #### L 501.080 #### [facility] [address] [place], [address] FINGERSTICK GLU 110 mg/dL High -106 [facility] Comment on above: Result Comment: RAHEEL GEMENT OF PATIENT CARE PER NURSING PROTOCOL Performed By: #### L 501.080 #### [facility] [address] [place], [address] Basic Metabolic Profile (BMP )on 12-28-2023 BUN/CRE 16.9 RATIO Normal 10-20 [facility] Comment on above: Performed By: #### L 501.2300, L501.5200, L500.2500 #### [facility] [facility] [address] [place], [address] CA,Total 9.5 mg/dL Normal 8.5-10.1 [facility] Comment on above: Performed By: #### L 501.2300, L501.5200, L500.2500 #### [facility] [address] [place], [address] Chloride [Moles/Vol] 105 mmol/L Normal 98-107 [facility] Comment on above: Performed By: #### L 501.2300, L501.5200, L500.2500 #### [facility] [address] [place], [address] CO2 [Moles/Vol] 28.0 mmol/L Normal 21.0-32.0 [facility] Comment on above: Performed By: #### L 501.2300, L501.5200, L500.2500 #### [facility] [address] [place], [address] Creatinine [Mass/Vol] 0.71 mg/dL Normal 0.70-1.30 [facility] Comment on above: Result Comment: The validity of the calculated GFR GFRAA in patients over 70 years has not been determined. Clinical correlation is essential. Performed By: #### L 501.2300, L501.5200, L500.2500 #### [facility] [address] [place], [address] ECRCL 87.01 ml/min Normal [facility] Comment on above: Performed By: #### L 501.2300, L501.5200, L500.2500 #### [facility] [address] [place], [address] EST GFR - AA 141 mL/min Normal >60 [facility] Comment on above: Result Comment: Afri can Malaysian GFR Calc Performed By: #### L 501.2300, L501.5200, L500.2500 #### [facility] [address] [place], [address] GAP 6 Normal 5-15 [facility] Comment on above: Performed By: #### L 501.2300, L501.5200, L500.2500 #### [facility] [address] [place], [address] GFR/1.73 sq M.predicted among non-blacks MDRD (S/P/Bld) [Vol rate/Area] 117 mL/min/{1.73_m2} Normal >60 [facility] Comment on above: Result Comment: Non- GFR Calc Performed By: #### L 501.2300, L501.5200, L500.2500 #### [facility] [address] [place], [address] Glucose [Mass/Vol] 81 mg/dL Normal 74-106 [facility] Comment on above: Performed By: #### L 501.2300, L501.5200, L500.2500 #### [facility] [address] [place], [address] Potassium [Moles/Vol] 3.7 mmol/L Normal 3.5-5.1 [facility] Comment on above: Performed By: #### L 501.2300, L501.5200, L500.2500 #### [facility] [address] [place], [address] Sodium [Moles/Vol] 139 mmol/L Normal 136-145 [facility] Comment on above: Performed By: #### L 501.2300, L501.5200, L500.2500 #### [facility] [address] [place], [address] Urea nitrogen [Mass/Vol] 12 mg/dL Normal 7-18 [facility] Comment on above: Performed By: #### L 501.2300, L501.5200, L500.2500 #### [facility] [address] [place], [address] Bedside Glucoseon 12-28-2023 FINGERSTICK GLU 185 mg/dL High 74-106 [facility] Comment on above: Result Comment: RAHEEL GUADARRAMA OF PATIENT CARE PER NURSING PROTOCOL Performed By: #### L 501.080 #### [facility] [address] [place], [address] FINGERSTICK GLU 82 mg/dL Normal 74-106 [facility] Comment on above: Result Comment: RAHEEL GEMENT OF PATIENT CARE PER NURSING PROTOCOL Performed By: #### L 501.080 #### [facility] [address] [place], [address] FINGERSTICK GLU 152 mg/dL High 74-106 [facility] Comment on above: Result Comment: RAHEEL GEMENT OF PATIENT CARE PER NURSING PROTOCOL Performed By: #### L 501.080 #### [facility] [address] [place], [address] FINGERSTICK GLU 250 mg/dL High 74-106 [facility] Comment on above: Result Comment: RAHEEL GEMENT OF PATIENT CARE PER NURSING PROTOCOL Performed By: #### L 501.080 #### [facility] [address] [place], [address] FINGERSTICK GLU 89 mg/dL Normal 74-106 [facility] Comment on above: Result Comment: RAHEEL GEMENT OF PATIENT CARE PER NURSING PROTOCOL Performed By: #### L 501.080 #### [facility] [address] [place], [address] Magnesiumon 12-28-2023 Magnesium [Mass/Vol] 2.1 mg/dL Normal 1.6-2.6 [facility] Comment on above: Performed By: #### L 501.2300, L501.5200, L500.2500 #### [facility] [address] [place], [address] Phosphoruson 12-28-2023 Phosphate [Mass/Vol] 3.7 mg/dL Normal 2.5-4.9 [facility] Comment on above: Performed By: #### L 501.2300, L501.5200, L500.2500 #### [facility] [address] [place], [address] Urine Cultureon 12-28-2023 URC Pseudomonas aerugino sa [place] Count <1000 Pseudomonas aeruginosa: REACTION Cefepime Islt JUDD 2 S Ciprofloxacin Islt JUDD <=0.25 S Gentamicin Islt JUDD <=1 S Imipenem Islt JUDD <=0.25 S levoFLOXacin Islt JUDD 0.5 S Pip+Tazo Islt JUDD 8 S Tobramycin Islt JUDD <=1 S Normal [facility] Comment on above: Performed By: #### M 100.2200 ####[facility] [address] [place], [address] Bedside Glucoseon 12-27-2023 FINGERSTICK GLU 233 mg/dL High 74-106 [facility] Comment on above: Result Comment: RAHEEL GEMENT OF PATIENT CARE PER NURSING PROTOCOL Performed By: #### L 501.2300, L501.5200, L500.2500 #### [facility] [address] [place], [address] FINGERSTICK GLU 86 mg/dL Normal -106 [facility] Comment on above: Result Comment: RAHEEL GEMENT OF PATIENT CARE PER NURSING PROTOCOL Performed By: #### L 501.080 ####[facility] [address] [place], [address] FINGERSTICK GLU 221 mg/dL High 74-106 [facility] Comment on above: Result Comment: RAHEEL GEMENT OF PATIENT CARE PER NURSING PROTOCOL Performed By: #### L 501.080 #### [facility] [address] [place], [address] FINGERSTICK GLU 128 mg/dL High -106 [facility] Comment on above: Result Comment: RAHEEL GEMENT OF PATIENT CARE PER NURSING PROTOCOL Performed By: #### L 501.080 ####[facility] [address] [place], [address] HH, Hemoglobin AND Hematocri ton 12-27-2023 Hematocrit (Bld) [Volume fraction] 35.3 % Low 40-54 [facility] Comment on above: Performed By: #### L 100.0600 ####[facility] [address] [place], [address] Hemoglobin (Bld) [Mass/Vol] 11.9 g/dL Low 13.0-16.5 [facility] Comment on above: Performed By: #### L 100.0600 ####[facility] [address] [place], [address] Bedside Glucoseon 12-26-2023 FINGERSTICK GLU 166 mg/dL High 74-106 [facility] Comment on above: Result Comment: RAHEEL GEMENT OF PATIENT CARE PER NURSING PROTOCOL Performed By: #### L 501.080 #### [facility] [address] [place], [address] FINGERSTICK GLU 144 mg/dL High 74-106 [facility] Comment on above: Result Comment: RAHEEL GEMENT OF PATIENT CARE PER NURSING PROTOCOL Performed By: #### L 501.080 #### [facility] [address] [place], [address] FINGERSTICK GLU 80 mg/dL Normal 74-106 [facility] Comment on above: Result Comment: RAHEEL GEMENT OF PATIENT CARE PER NURSING PROTOCOL Performed By: #### L 501.080 #### [facility] [address] [place], [address] FINGERSTICK GLU 149 mg/dL High 74-106 [facility] Comment on above: Result Comment: RAHEEL GEMENT OF PATIENT CARE PER NURSING PROTOCOL Performed By: #### L 501.080 #### [facility] [address] [place], [address] FINGERSTICK GLU 133 mg/dL High 74-106 [facility] Comment on above: Result Comment: RAHEEL GEMENT OF PATIENT CARE PER NURSING PROTOCOL Performed By: #### L 501.080 ####[facility] [address] [place], [address] Bedside Glucoseon 12-25-2023 FINGERSTICK GLU 105 mg/dL Normal 74-106 [facility] Comment on above: Result Comment: RAHEEL GEMENT OF PATIENT CARE PER NURSING PROTOCOL Performed By: #### L 501.080 ####[facility] [address] [place], [address] FINGERSTICK GLU 228 mg/dL High 74-106 [facility] Comment on above: Result Comment: RAHEEL GEMENT OF PATIENT CARE PER NURSING PROTOCOL Performed By: #### L 501.080 #### [facility] [address] [place], [address] FINGERSTICK GLU 164 mg/dL High 74-106 [facility] Comment on above: Result Comment: RAHEEL GEMENT OF PATIENT CARE PER NURSING PROTOCOL Performed By: #### L 501.080 ####[facility] [address] [place], [address] FINGERSTICK GLU 205 mg/dL High 74-106 [facility] Comment on above: Result Comment: RAHEEL GEMENT OF PATIENT CARE PER NURSING PROTOCOL Performed By: #### L 501.080 #### [facility] [address] [place], [address] CBC W/Diff, Automatedon 06-0 4-2023 Absolute Lymph 1.45 X10 3/uL Normal 0.83-4.51 [facility] Comment on above: Performed By: #### L 500.4050, L501.5200, L501.2300, L100.0100 ####[facility] [address] [place], [address] Absolute Neut 6.4 X10 3/uL Normal 2.0-7.7 [facility] Comment on above: Performed By: #### L 500.4050, L501.5200, L501.2300, L100.0100 ####[facility] [address] [place], [address] Basophils/100 WBC (Bld) 0.9 % Normal 0-1 [facility] Comment on above: Performed By: #### L 500.4050, L501.5200, L501.2300, L100.0100 ####[facility] [address] [place], [address] Eosinophils/100 WBC (Bld) 8.1 % High 0-5 [facility] Comment on above: Performed By: #### L 500.4050, L501.5200, L501.2300, L100.0100 ####[facility] [address] [place], [address] Erythrocyte distribution width (RBC) [Ratio] 13.3 % Normal 11.6-14.6 [facility] Comment on above: Performed By: #### L 500.4050, L501.5200, L501.2300, L100.0100 ####[facility] [address] [place], [address] Hematocrit (Bld) [Volume fraction] 31.4 % Low 40-54 [facility] Comment on above: Performed By: #### L 500.4050, L501.5200, L501.2300, L100.0100 ####[facility] [address] [place], [address] Hemoglobin (Bld) [Mass/Vol] 10.7 g/dL Low 13.0-16.5 [facility] Comment on above: Performed By: #### L 500.4050, L501.5200, L501.2300, L100.0100 ####[facility] [address] [place], [address] IG% 0.300 Normal 0.0-0.9 [facility] Comment on above: Result Comment: IG% - Immature Granulocytes (promyelocytes, myelocytes and metamyelocytes) > 1% indicates that a LEFT SHIFT is Present. Performed By: #### L 500.4050, L501.5200, L501.2300, L100.0100 ####[facility] [address] [place], [address] Lymphocytes/100 WBC (Bld) 15.0 % Low 19-41 [facility] Comment on above: Performed By: #### L 500.4050, L501.5200, L501.2300, L100.0100 ####[facility] [address] [place], [address] MCH (RBC) [Entitic mass] 30.4 pg Normal 27.0-32.0 [facility] Comment on above: Performed By: #### L 500.4050, L501.5200, L501.2300, L100.0100 ####[facility] [address] [place], [address] MCHC (RBC) [Mass/Vol] 34.1 g/dL Normal 32-36 [facility] Comment on above: Performed By: #### L 500.4050, L501.5200, L501.2300, L100.0100 ####[facility] [address] [place], [address] MCV (RBC) [Entitic vol] 89.2 fL Normal 80-94 [facility] Comment on above: Performed By: #### L 500.4050, L501.5200, L501.2300, L100.0100 ####[facility] [address] [place], [address] Monocytes/100 WBC (Bld) 9.2 % Normal 0-10 [facility] Comment on above: Performed By: #### L 500.4050, L501.5200, L501.2300, L100.0100 ####[facility] [address] [place], [address] Neutrophils/100 WBC (Bld) 66.5 % Normal 47-70 [facility] Comment on above: Performed By: #### L 500.4050, L501.5200, L501.2300, L100.0100 ####[facility] [address] [place], [address] Nucleated RBC (Bld) [#/Vol] 0 10*3/uL Normal 0-5 [facility] Comment on above: Performed By: #### L 500.4050, L501.5200, L501.2300, L100.0100 ####[facility] [address] [place], [address] Platelet mean volume (Bld) [Entitic vol] 12.4 fL High 6.2-12.0 [facility] Comment on above: Performed By: #### L 500.4050, L501.5200, L501.2300, L100.0100 ####[facility] [address] [place], [address] Platelets (Bld) [#/Vol] 169 10*3/uL Normal 150-450 [facility] Comment on above: Performed By: #### L 500.4050, L501.5200, L501.2300, L100.0100 ####[facility] [address] [place], [address] RBC (Bld) [#/Vol] 3.52 10*6/uL Low 4.6-6.2 [facility] Comment on above: Performed By: #### L 500.4050, L501.5200, L501.2300, L100.0100 ####[facility] [address] [place], [address] RDW SD 43.5 fl Normal 35.1-43.9 [facility] Comment on above: Performed By: #### L 500.4050, L501.5200, L501.2300, L100.0100 ####[facility] [address] [place], [address] WBC (Bld) [#/Vol] 9.7 10*3/uL Normal 4.4-11.0 [facility] Comment on above: Performed By: #### L 500.4050, L501.5200, L501.2300, L100.0100 ####[facility] [address] [place], [address] Comprehensive Metabolic Prof ilon 12-25-2023 Albumin [Mass/Vol] 2.6 g/dL Low 3.2-5.0 [facility] Comment on above: Performed By: #### L 501.080 #### [facility] [address] [place], [address] Albumin/Globulin [Mass ratio] 0.8 {ratio} Low 0.9-2.4 [facility] Comment on above: Performed By: #### L 501.080 #### [facility] [address] [place], [address] ALK P 116 U/L Normal 45-117 [facility] Comment on above: Performed By: #### L 501.080 #### [facility] [address] [place], [address] ALT [Catalytic activity/Vol] 19 U/L Normal 16-61 [facility] Comment on above: Performed By: #### L 501.080 #### [facility] [address] [place], [address] AST [Catalytic activity/Vol] 25 U/L Normal 15-37 [facility] Comment on above: Performed By: #### L 501.080 #### [facility] [address] [place], [address] Bilirubin [Mass/Vol] 0.80 mg/dL Normal 0.20-1.00 [facility] Comment on above: Result Comment: For patients on eltrombopag therapy, use of Dimension Rio TBIL is not recommended. Performed By: #### L 501.080 #### [facility] [address] [place], [address] BUN/CRE 9.6 RATIO Low 10-20 [facility] Comment on above: Performed By: #### L 501.080 #### [facility] [address] [place], [address] CA,Total 8.7 mg/dL Normal 8.5-10.1 [facility] Comment on above: Performed By: #### L 501.080 #### [facility] [address] [place], [address] Chloride [Moles/Vol] 108 mmol/L High 98-107 [facility] Comment on above: Performed By: #### L 501.080 #### [facility] [address] [place], [address] CO2 [Moles/Vol] 26.0 mmol/L Normal 21.0-32.0 [facility] Comment on above: Performed By: #### L 501.080 #### [facility] [address] [place], [address] Creatinine [Mass/Vol] 0.62 mg/dL Low 0.70-1.30 [facility] Comment on above: Result Comment: The validity of the calculated GFR GFRAA in patients over 70 years has not been determined. Clinical correlation is essential. Performed By: #### L 501.080 #### [facility] [address] [place], [address] ECRCL 87.62 ml/min Normal [facility] Comment on above: Performed By: #### L 501.080 #### [facility] [address] [place], [address] EST GFR - AA 164 mL/min Normal >60 [facility] Comment on above: Result Comment: Afri can Malaysian GFR Calc Performed By: #### L 501.080 #### [facility] [address] [place], [address] GAP 5 Normal 5-15 [facility] Comment on above: Performed By: #### L 501.080 #### [facility] [address] [place], [address] GFR/1.73 sq M.predicted among non-blacks MDRD (S/P/Bld) [Vol rate/Area] 135 mL/min/{1.73_m2} Normal >60 [facility] Comment on above: Result Comment: Non- GFR Calc Performed By: #### L 501.080 #### [facility] [address] [place], [address] Globulin (S) [Mass/Vol] 3.2 g/dL Normal 2.2-4.2 [facility] Comment on above: Performed By: #### L 501.080 #### [facility] [address] [place], [address] Glucose [Mass/Vol] 195 mg/dL High 74-106 [facility] Comment on above: Result Comment: Fast ing Glucose result greater than or equal to 126 mg/dL suggests DIABETES MELLITUS per A.D.A. criteria. Performed By: #### L 501.080 #### [facility] [address] [place], [address] Potassium [Moles/Vol] 3.4 mmol/L Low 3.5-5.1 [facility] Comment on above: Performed By: #### L 501.080 #### [facility] [address] [place], [address] Sodium [Moles/Vol] 139 mmol/L Normal 136-145 [facility] Comment on above: Performed By: #### L 501.080 #### [facility] [address] [place], [address] T PROT 5.8 g/dL Low 6.4-8.2 [facility] Comment on above: Performed By: #### L 501.080 #### [facility] [address] [place], [address] Urea nitrogen [Mass/Vol] 6 mg/dL Low 7-18 [facility] Comment on above: Performed By: #### L 501.080 #### [facility] [address] [place], [address] Magnesiumon 12-25-2023 Magnesium [Mass/Vol] 1.9 mg/dL Normal 1.6-2.6 [facility] Comment on above: Performed By: #### L 501.080 #### [facility] [address] [place], [address] Phosphoruson 12-25-2023 Phosphate [Mass/Vol] 1.4 mg/dL Low 2.5-4.9 [facility] Comment on above: Performed By: #### L 501.080 #### [facility] [address] [place], [address] Urinalysis, Completeon 12-24 RBC 25-50 SEEN Normal 0-5 [facility] Comment on above: Order Comment: JUDY TER SPECIMEN Performed By: #### L 501.080 #### [facility] [address] [place], [address] BACTERIA 0 SEEN Normal None Seen [facility] Comment on above: Order Comment: JUDY TER SPECIMEN Performed By: #### L 501.080 #### [facility] [address] [place], [address] EPI,SQUAMOUS 0 SEEN Normal 0-5 [facility] Comment on above: Order Comment: JUDY TER SPECIMEN Performed By: #### L 501.080 #### [facility] [address] [place], [address] Mucus Ql (Urine sed) 0 SEEN Normal [facility] Comment on above: Order Comment: JUDY TER SPECIMEN Performed By: #### L 501.080 #### [facility] [address] [place], [address] WBC 0 SEEN Normal 0-5 [facility] Comment on above: Order Comment: JUDY TER SPECIMEN Performed By: #### L 501.080 #### [facility] [address] [place], [address] Basic Metabolic Profile (BMP )on 12-24-2023 BUN/CRE 11.7 RATIO Normal 10-20 [facility] Comment on above: Performed By: #### L 501.080 #### [facility] [address] [place], [address] CA,Total 8.7 mg/dL Normal 8.5-10.1 [facility] Comment on above: Performed By: #### L 501.080 #### [facility] [address] [place], [address] Chloride [Moles/Vol] 111 mmol/L High 98-107 [facility] Comment on above: Performed By: #### L 501.080 #### [facility] [address] [place], [address] CO2 [Moles/Vol] 26.0 mmol/L Normal 21.0-32.0 [facility] Comment on above: Performed By: #### L 501.080 #### [facility] [address] [place], [address] Creatinine [Mass/Vol] 0.68 mg/dL Low 0.70-1.30 [facility] Comment on above: Result Comment: The validity of the calculated GFR GFRAA in patients over 70 years has not been determined. Clinical correlation is essential. Performed By: #### L 501.080 #### [facility] [address] [place], [address] ECRCL 80.33 ml/min Normal [facility] Comment on above: Performed By: #### L 501.080 #### [facility] [address] [place], [address] EST GFR - AA 148 mL/min Normal >60 [facility] Comment on above: Result Comment: Afri can Malaysian GFR Calc Performed By: #### L 501.080 #### [facility] [address] [place], [address] GAP 4 Low 5-15 [facility] Comment on above: Performed By: #### L 501.080 #### [facility] [address] [place], [address] GFR/1.73 sq M.predicted among non-blacks MDRD (S/P/Bld) [Vol rate/Area] 122 mL/min/{1.73_m2} Normal >60 [facility] Comment on above: Result Comment: Non- GFR Calc Performed By: #### L 501.080 #### [facility] [address] [place], [address] Glucose [Mass/Vol] 83 mg/dL Normal 74-106 [facility] Comment on above: Performed By: #### L 501.080 #### [facility] [address] [place], [address] Potassium [Moles/Vol] 3.4 mmol/L Low 3.5-5.1 [facility] Comment on above: Performed By: #### L 501.080 #### [facility] [address] [place], [address] Sodium [Moles/Vol] 141 mmol/L Normal 136-145 [facility] Comment on above: Performed By: #### L 501.080 #### [facility] [address] [place], [address] Urea nitrogen [Mass/Vol] 8 mg/dL Normal 7-18 [facility] Comment on above: Performed By: #### L 501.080 #### [facility] [address] [place], [address] Bedside Glucoseon 12-24-2023 FINGERSTICK GLU 245 mg/dL High 74-106 [facility] Comment on above: Result Comment: RAHEEL GEMENT OF PATIENT CARE PER NURSING PROTOCOL Performed By: #### L 501.080 #### [facility] [address] [place], [address] FINGERSTICK GLU 217 mg/dL High 74-106 [facility] Comment on above: Result Comment: RAHEEL GEMENT OF PATIENT CARE PER NURSING PROTOCOL Performed By: #### L 501.080 ####[facility] [address] [place], [address] FINGERSTICK GLU 181 mg/dL High 74-106 [facility] Comment on above: Result Comment: RAHEEL GEMENT OF PATIENT CARE PER NURSING PROTOCOL Performed By: #### L 501.080 #### [facility] [address] [place], [address] FINGERSTICK GLU 89 mg/dL Normal 74-106 [facility] Comment on above: Result Comment: RAHEEL GEMENT OF PATIENT CARE PER NURSING PROTOCOL Performed By: #### L 501.080 #### [facility] [address] [place], [address] CBC-Complete Blood Cnt No Di ffon 12-24-2023 Erythrocyte distribution width (RBC) [Ratio] 13.6 % Normal 11.6-14.6 [facility] Comment on above: Performed By: #### L 501.080 #### [facility] [address] [place], [address] Hematocrit (Bld) [Volume fraction] 34.8 % Low 40-54 [facility] Comment on above: Performed By: #### L 501.080 #### [facility] [address] [place], [address] Hemoglobin (Bld) [Mass/Vol] 11.5 g/dL Low 13.0-16.5 [facility] Comment on above: Performed By: #### L 501.080 #### [facility] [address] [place], [address] MCH (RBC) [Entitic mass] 30.1 pg Normal 27.0-32.0 [facility] Comment on above: Performed By: #### L 501.080 #### [facility] [address] [place], [address] MCHC (RBC) [Mass/Vol] 33.0 g/dL Normal 32-36 [facility] Comment on above: Performed By: #### L 501.080 #### [facility] [address] [place], [address] MCV (RBC) [Entitic vol] 91.1 fL Normal 80-94 [facility] Comment on above: Performed By: #### L 501.080 #### [facility] [address] [place], [address] Platelet mean volume (Bld) [Entitic vol] 12.3 fL High 6.2-12.0 [facility] Comment on above: Performed By: #### L 501.080 #### [facility] [address] [place], [address] Platelets (Bld) [#/Vol] 187 10*3/uL Normal 150-450 [facility] Comment on above: Performed By: #### L 501.080 #### [facility] [address] [place], [address] RBC (Bld) [#/Vol] 3.82 10*6/uL Low 4.6-6.2 [facility] Comment on above: Performed By: #### L 501.080 #### [facility] [address] [place], [address] RDW SD 45.9 fl High 35.1-43.9 [facility] Comment on above: Performed By: #### L 501.080 #### [facility] [address] [place], [address] WBC (Bld) [#/Vol] 10.7 10*3/uL Normal 4.4-11.0 [facility] Comment on above: Performed By: #### L 501.080 #### [facility] [address] [place], [address] Basic Metabolic Profile (BMP )on 12-23-2023 BUN/CRE 16.7 RATIO Normal 10-20 [facility] Comment on above: Performed By: #### L 501.2300, L501.5200, L500.2500 #### [facility] [address] [place], [address] CA,Total 8.5 mg/dL Normal 8.5-10.1 [facility] Comment on above: Performed By: #### L 501.2300, L501.5200, L500.2500 #### [facility] [address] [place], [address] Chloride [Moles/Vol] 109 mmol/L High 98-107 [facility] Comment on above: Performed By: #### L 501.2300, L501.5200, L500.2500 #### [facility] [address] [place], [address] CO2 [Moles/Vol] 23.0 mmol/L Normal 21.0-32.0 [facility] Comment on above: Performed By: #### L 501.2300, L501.5200, L500.2500 #### [facility] [address] [place], [address] Creatinine [Mass/Vol] 0.78 mg/dL Normal 0.70-1.30 [facility] Comment on above: Result Comment: The validity of the calculated GFR GFRAA in patients over 70 years has not been determined. Clinical correlation is essential. Performed By: #### L 501.2300, L501.5200, L500.2500 #### [facility] [address] [place], [address] ECRCL 80.33 ml/min Normal [facility] Comment on above: Performed By: #### L 501.2300, L501.5200, L500.2500 #### [facility] [address] [place], [address] EST GFR - AA 126 mL/min Normal >60 [facility] Comment on above: Result Comment: Afri can Malaysian GFR Calc Performed By: #### L 501.2300, L501.5200, L500.2500 #### [facility] [address] [place], [address] GAP 7 Normal 5-15 [facility] Comment on above: Performed By: #### L 501.2300, L501.5200, L500.2500 #### [facility] [address] [place], [address] GFR/1.73 sq M.predicted among non-blacks MDRD (S/P/Bld) [Vol rate/Area] 105 mL/min/{1.73_m2} Normal >60 [facility] Comment on above: Result Comment: Non- GFR Calc Performed By: #### L 501.2300, L501.5200, L500.2500 #### [facility] [address] [place], [address] Glucose [Mass/Vol] 180 mg/dL High 74-106 [facility] Comment on above: Result Comment: Fast ing Glucose result greater than or equal to 126 mg/dL suggests DIABETES MELLITUS per A.D.A. criteria. Performed By: #### L 501.2300, L501.5200, L500.2500 #### [facility] [address] [place], [address] Potassium [Moles/Vol] 3.8 mmol/L Normal 3.5-5.1 [facility] Comment on above: Performed By: #### L 501.2300, L501.5200, L500.2500 #### [facility] [address] [place], [address] Sodium [Moles/Vol] 139 mmol/L Normal 136-145 [facility] Comment on above: Performed By: #### L 501.2300, L501.5200, L500.2500 #### [facility] [address] [place], [address] Urea nitrogen [Mass/Vol] 13 mg/dL Normal 7-18 [facility] Comment on above: Performed By: #### L 501.2300, L501.5200, L500.2500 #### [facility] [address] [place], [address] Bedside Glucoseon 12-23-2023 FINGERSTICK GLU 210 mg/dL High 74-106 [facility] Comment on above: Result Comment: RAHEEL GUADARRAMA OF PATIENT CARE PER NURSING PROTOCOL Performed By: #### L 501.080 #### [facility] [address] [place], [address] FINGERSTICK GLU 294 mg/dL High 74-106 [facility] Comment on above: Result Comment: RAHEEL GEMENT OF PATIENT CARE PER NURSING PROTOCOL Performed By: #### L 501.2300, L501.5200, L500.2500 #### [facility] [address] [place], [address] FINGERSTICK GLU 228 mg/dL High 74-106 [facility] Comment on above: Result Comment: RAHEEL GEMENT OF PATIENT CARE PER NURSING PROTOCOL Performed By: #### L 501.2300, L501.5200, L500.2500 #### [facility] [address] [place], [address] FINGERSTICK GLU 211 mg/dL High [address] [place] [address] Comment on above: Result Comment: RAHEEL GEMENT OF PATIENT CARE PER NURSING PROTOCOL Performed By: #### L 501.2300, L501.5200, L500.2500 #### [facility] [address] [place], [address] FINGERSTICK GLU 189 mg/dL High [address] [place] [address] Comment on above: Result Comment: RAHEEL GEMENT OF PATIENT CARE PER NURSING PROTOCOL Performed By: #### L 501.2300, L501.5200, L500.2500 #### [facility] [address] [place], [address] FINGERSTICK GLU 200 mg/dL High [address] [place] [address] Comment on above: Result Comment: RAHEEL GEMENT OF PATIENT CARE PER NURSING PROTOCOL Performed By: #### L 501.2300, L501.5200, L500.2500 #### [facility] [address] [place], [address] Hemoglobin A1con 12-23-2023 HbA1c (Bld) [Mass fraction] 7.1 % High 3.8-5.6 [facility] Comment on above: Result Comment: Norm al < 5.7 % Prediabetic 5.7 - 6.4 % Diabetic >or= 6.5 % Please note range changes. Performed By: #### L 501.080 #### [facility] [address] [place], [address] Hip Min 2 Views (Portable)on 12-23-2023 Hip Min 2 Views (Portable) [facility] Imaging Services [address] [address] Hip Min 2 Views (Portable) MR#: [id number] Acct: [id number] Name: JING MCKEON Rep #: [id number] : 1955 M 68 From: Freida Palacios MD PCP: Dr. Son Zambrano MD Status: ADM IN Study: Hip Min 2 Views (Portable) Date of Exam: 12/22 Exam# [id number] Ordering Dr: Douglas Schreiber MD [id number] INDICATION: GAMMA NAIL EXAMINATION/TECHNIQUE: X-RAY - XR Hip Unilateral with Pelvis when performed 4 views. COMPARISON: December 22, 2023 FINDINGS: Four intraoperative images of the left hip were submitted. There is a intertrochanteric fracture. There are screws traversing the femoral neck and the distal diaphysis associated with an intramedullary bill. The alignment appears anatomic. Please refer to the intraoperative report for further discussion. Electronically Signed: Freida Palacios MD at 9:35 EDT , RAD/Hip Min 2 Views (Portable) IMPRESSION: undefined CC: Dr. Son Zambrano MD; Dr. Douglas Schreiber MD Manager Spa: Signed Normal [facility] Operative Reporton 4 Operative Report [facility] Medical Records Department [address] [place] [address] Operative Report 12/23/23 0922 MR#: [id number] Acct: [id number] Name: JING MCKEON Rep #: [id number] : 1955 68 From: Douglas Schreiber MD PCP: Dr. Son Zambrano MD Status:ADM IN [facility] Report Date of Procedure: 12/23/23 Preoperative diagnosis: Left hip displaced intertrochanteric fracture Postoperative diagnosis: Same Title of operation: Left hip open reduction internal fixation, intramedullary nail fixation, locked Surgeon: Dr. Douglas Schreiber Manager Gyn: Angela Salazar PA-C Anesthesia: General Medications: Ancef 2gm, 1 gm IV Anesthesiologist: Dr. Marx /stacey EBL: 20 Indications for surgery: Patient is an 68 -year-old male sustained a hip fracture yesterday. Patient and their family explained diagnosis and treatment options. Patient evaluated by the medical services. Patient did wish to have surgery. Appropriate informed consent obtained and signed. Findings: Patient had a slightly displaced intertrochanteric hip fracture. They underwent standard reduction, internal fixation using a Enrico short gamma nail. X-rays taken throughout. doctor's assistant, physician maintenance assistant, was utilized throughout the entire procedure. They were vital to the procedure from beginning to end. They help with patient transfer, patient padding and positioning, fracture reduction, maintenance of fracture reduction, internal fixation of implants, wound closure, bandage application, patient transfer. Without court assistant, surgical time would have been significantly increased and surgical outcome could have been less optimal. Procedure: Patient was taken to the operating room. Placed under a general anesthetic and transferred to the operating table with the help of the maintenance assistant. With the help of the maintenance assistant patient was prepped and padded for surgery. Operative side foot was well-padded and placed in the traction boot. Uninjured lower extremity was abducted and flexed out of harms way. MARIBELL hose and SCDs utilized. Fluoroscopy was brought in. With the help of the maintenance assistant and manipulation of the limb, reduction was nicely obtained as verified under AP lateral and oblique fluoroscopic images. . Operative hip/thigh was prepped padded draped in usual orthopedic sterile fashion for the procedure. Longitudinal incision was made just proximal to the greater trochanter. Taken through skin and subcutaneous tissue. Sharp awl was placed on the tip of the greater trochanter. Position verified under AP and lateral fluoroscopic images. This was then taken down inside the bone. Slightly bent ball-tipped guide bill was then placed from the tip of the greater trochanter into the intra-medullary canal of the femur. Its position verified radiographically. Reamer was then done over the tip of this with the help of the maintenance assistant holding the soft tissue protector appropriately. Once reaming was done we placed the short 125??? angle device over the guidepin. This was easily introduced. Guide bill removed. Outrigger device was utilized to position a guidepin from the lateral cortex of the femur across the fracture site and into the femoral head in a good position centrally, as noted on AP lateral and oblique fluoroscopic images. This was measured. Appropriate reaming done. Appreciate length lag screw was placed from the lateral cortex of the femur into the femoral head. A small amount of the screw was noted to be protruding laterally as planned. No cartilage penetration of the femoral head noted on any x-ray. Fracture was then compressed with the outrigger device. Proximal cap screw was placed by the maintenance assistant seated down completely, confirmed, and then loosened one fourth turn. We then used the outrigger device to place distal cross locking screw under standard technique. This was confirmed to be of adequate length in good position on AP and lateral images. Outrigger device removed. Final set of AP and lateral proximal x-rays taken and saved. Incisions thoroughly irrigated. Closing by the maintenance assistant with deep 0 Vicryl, mid layer 0 Vicryl, inverted 2-0 Vicryl, skin tasha. Puncture wounds closed with inverted 2-0 Vicryl and tasha. Xeroform 4 x 4's ABD tape applied. Patient was awoken from their anesthetic, transferred back to their own bed with the help of the maintenance assistant and into recovery room in satisfactory condition. Patient will continue to be admitted to the hospital under the hospitalist service. This note was generated with [employer] dictation software. It may contain incorrect words, spelling, and punctuation that were not noted in checking the note before signing. 12/23/23 3591 Cosigner Signature (if applicable): CC: Dr. Jarad Burch MD; Dr. Son Zambrano MD; Dr. Douglas Schreiber MD; MIGUELITO MASON MD Si (more content not included)... Normal [facility] 12 Lead EKGon 12-22-2023 12 Lead EKG [facility] Cardiovascular Services [address] [place] [address] 12 Lead EKG 12/22/23 1729 MR#: [id number] Acct: [id number] Name: JING MCKEON Rep #: [id number] : 1955 68 From: Sagar Ragsdale MD Attending Dr: Dr. Pan Carranza DO Status : ADM IN Ordering Dr: Santiago Madrid MD Date: 12/22/23 Location: [facility] Sex: M C Admitted: 12/22/23 Test Reason : FALL Blood Pressure : / mmHG Vent. Rate : 082 BPM Atrial Rate : 082 BPM P-R Int : 156 ms QRS Dur : 080 ms QT Int : 366 ms P-R-T Axes : 056 -09 002 degrees QTc Int : 427 ms Normal sinus rhythm Nonspecific ST abnormality Abnormal ECG Confirmed by MARNI FRANK, SAGAR ([id number]), health editor FÁTIMA MINER ([id number]) on 12/24/2023 6:53:11 AM Referred By: Confirmed By:SAGAR RAGSDALE MD 12/24/23 0653 Date Sagar Ragsdale MD CC: Dr. Pan Carranza DO; Dr. Son Zambrano MD; Dr. Santiago [place] MD Signed Normal [facility] Basic Metabolic Profile (BMP )on 12-22-2023 BUN/CRE 17.6 RATIO Normal 10-20 [facility] Comment on above: Performed By: #### L 501.2300, L501.5200, L500.2500 #### [facility] [address] [place], [address] CA,Total 9.3 mg/dL Normal 8.5-10.1 [facility] Comment on above: Performed By: #### L 501.2300, L501.5200, L500.2500 #### [facility] [address] [place], [address] Chloride [Moles/Vol] 104 mmol/L Normal 98-107 [facility] Comment on above: Performed By: #### L 501.2300, L501.5200, L500.2500 #### [facility] [address] [place], [address] CO2 [Moles/Vol] 28.0 mmol/L Normal 21.0-32.0 [facility] Comment on above: Performed By: #### L 501.2300, L501.5200, L500.2500 #### [facility] [address] [place], [address] Creatinine [Mass/Vol] 1.02 mg/dL Normal 0.70-1.30 [facility] Comment on above: Result Comment: The validity of the calculated GFR GFRAA in patients over 70 years has not been determined. Clinical correlation is essential. Performed By: #### L 501.2300, L501.5200, L500.2500 #### [facility] [address] [place], [address] ECRCL 63.00 ml/min Normal [facility] Comment on above: Performed By: #### L 501.2300, L501.5200, L500.2500 #### [facility] [address] [place], [address] EST GFR - AA 93 mL/min Normal >60 [facility] Comment on above: Result Comment: Afri can Malaysian GFR Calc Performed By: #### L 501.2300, L501.5200, L500.2500 #### [facility] [address] [place], [address] GAP 5 Normal 5-15 [facility] Comment on above: Performed By: #### L 501.2300, L501.5200, L500.2500 #### [facility] [address] [place], [address] GFR/1.73 sq M.predicted among non-blacks MDRD (S/P/Bld) [Vol rate/Area] 77 mL/min/{1.73_m2} Normal >60 [facility] Comment on above: Result Comment: Non- GFR Calc Performed By: #### L 501.2300, L501.5200, L500.2500 #### [facility] [address] [place], [address] Glucose [Mass/Vol] 219 mg/dL High 74-106 [facility] Comment on above: Result Comment: Gluc ose result greater than or equal to 200 mg/dL suggests DIABETES MELLITUS per A.D.A. criteria. Performed By: #### L 501.2300, L501.5200, L500.2500 #### [facility] [address] [place], [address] Potassium [Moles/Vol] 4.8 mmol/L Normal 3.5-5.1 [facility] Comment on above: Result Comment: Mode rate Hemolysis, Result may be falsely increased. Performed By: #### L 501.2300, L501.5200, L500.2500 #### [facility] [address] [place], [address] Sodium [Moles/Vol] 137 mmol/L Normal 136-145 [facility] Comment on above: Performed By: #### L 501.2300, L501.5200, L500.2500 #### [facility] [address] [place], [address] Urea nitrogen [Mass/Vol] 18 mg/dL Normal 7-18 [facility] Comment on above: Performed By: #### L 501.2300, L501.5200, L500.2500 #### [facility] [address] [place], [address] Bedside Glucoseon 12-22-2023 FINGERSTICK GLU 190 mg/dL High 74-106 [facility] Comment on above: Result Comment: RAHEEL GUADARRAMA OF PATIENT CARE PER NURSING PROTOCOL Performed By: #### L 501.2300, L501.5200, L500.2500 #### [facility] [address] [place], [address] CBC W/Diff, Automatedon 06-0 Absolute Lymph 3.78 X10 3/uL Normal 0.83-4.51 [facility] Comment on above: Performed By: #### L 501.2300, L501.5200, L500.2500 #### [facility] [address] [place], [address] Absolute Neut 5.5 X10 3/uL Normal 2.0-7.7 [facility] Comment on above: Performed By: #### L 501.2300, L501.5200, L500.2500 #### [facility] [address] [place], [address] Basophils/100 WBC (Bld) 0.8 % Normal 0-1 [facility] Comment on above: Performed By: #### L 501.2300, L501.5200, L500.2500 #### [facility] [address] [place], [address] Eosinophils/100 WBC (Bld) 3.5 % Normal 0-5 [facility] Comment on above: Performed By: #### L 501.2300, L501.5200, L500.2500 #### [facility] [address] [place], [address] Erythrocyte distribution width (RBC) [Ratio] 13.2 % Normal 11.6-14.6 [facility] Comment on above: Performed By: #### L 501.2300, L501.5200, L500.2500 #### [facility] [address] [place], [address] Hematocrit (Bld) [Volume fraction] 38.4 % Low 40-54 [facility] Comment on above: Performed By: #### L 501.2300, L501.5200, L500.2500 #### [facility] [address] [place], [address] Hemoglobin (Bld) [Mass/Vol] 13.0 g/dL Normal 13.0-16.5 [facility] Comment on above: Performed By: #### L 501.2300, L501.5200, L500.2500 #### [facility] [address] [place], [address] IG% 0.500 Normal 0.0-0.9 [facility] Comment on above: Result Comment: IG% - Immature Granulocytes (promyelocytes, myelocytes and metamyelocytes) > 1% indicates that a LEFT SHIFT is Present. Performed By: #### L 501.2300, L501.5200, L500.2500 #### [facility] [address] [place], [address] Lymphocytes/100 WBC (Bld) 35.8 % Normal 19-41 [facility] Comment on above: Performed By: #### L 501.2300, L501.5200, L500.2500 #### [facility] [address] [place], [address] MCH (RBC) [Entitic mass] 30.2 pg Normal 27.0-32.0 [facility] Comment on above: Performed By: #### L 501.2300, L501.5200, L500.2500 #### [facility] [address] [place], [address] MCHC (RBC) [Mass/Vol] 33.9 g/dL Normal 32-36 [facility] Comment on above: Performed By: #### L 501.2300, L501.5200, L500.2500 #### [facility] [address] [place], [address] MCV (RBC) [Entitic vol] 89.3 fL Normal 80-94 [facility] Comment on above: Performed By: #### L 501.2300, L501.5200, L500.2500 #### [facility] [address] [place], [address] Monocytes/100 WBC (Bld) 7.9 % Normal 0-10 [facility] Comment on above: Performed By: #### L 501.2300, L501.5200, L500.2500 #### [facility] [address] [place], [address] Neutrophils/100 WBC (Bld) 51.5 % Normal 47-70 [facility] Comment on above: Performed By: #### L 501.2300, L501.5200, L500.2500 #### [facility] [address] [place], [address] Nucleated RBC (Bld) [#/Vol] 0 10*3/uL Normal 0-5 [facility] Comment on above: Performed By: #### L 501.2300, L501.5200, L500.2500 #### [facility] [address] [place], [address] Platelet mean volume (Bld) [Entitic vol] 11.3 fL Normal 6.2-12.0 [facility] Comment on above: Performed By: #### L 501.2300, L501.5200, L500.2500 #### [facility] [address] [place], [address] Platelets (Bld) [#/Vol] 235 10*3/uL Normal 150-450 [facility] Comment on above: Performed By: #### L 501.2300, L501.5200, L500.2500 #### [facility] [address] [place], [address] RBC (Bld) [#/Vol] 4.30 10*6/uL Low 4.6-6.2 [facility] Comment on above: Performed By: #### L 501.2300, L501.5200, L500.2500 #### [facility] [address] [place], [address] RDW SD 43.8 fl Normal 35.1-43.9 [facility] Comment on above: Performed By: #### L 501.2300, L501.5200, L500.2500 #### [facility] [address] [place], [address] WBC (Bld) [#/Vol] 10.6 10*3/uL Normal 4.4-11.0 [facility] Comment on above: Performed By: #### L 501.2300, L501.5200, L500.2500 #### [facility] [address] [place], [address] Chest 1 View (Portable)on Chest 1 View (Portable) [facility] Imaging Services [address] [place] [address] Chest 1 View (Portable) MR#: [id number] Acct: [id number] Name: JING MCKEON Rep #: [id number] : 1955 M 68 From: Andrew Narayanan MD PCP: Dr. Son Zambrano MD Status: ADM IN Study: Chest 1 View (Portable) Date of Exam: 12/22/23 Exam# [id number] Ordering Dr: Santiago Madrid MD [id number] INDICATION: Preop EXAMINATION/TECHNIQUE: X-RAY - XR Chest 1 View COMPARISON: None. FINDINGS: LINES/DEVICES: None. LUNGS: No consolidation, edema or effusion. No pneumothorax. MEDIASTINUM AND CARDIOVASCULAR STRUCTURES: Cardiac silhouette not enlarged. Aortic atherosclerosis. BONES AND SOFT TISSUES: Unremarkable. RAD/Chest 1 View (Portable) IMPRESSION: No radiographic evidence of acute cardiopulmonary disease. Electronically Signed: Andrew Narayanan MD at 19:34 EDT , CC: Dr. Son Zambrano MD; Dr. Santiago Madrid MD Manager Spa: Signed Normal [facility] Emergency Department Summary on 12-22-2023 Emergency Department Summary [facility] Medical Records Department [address] [place] [address] Emergency Department Summary 12/22/23 MR#: [id number] Acct: [id number] Name: JING MCKEON Rep #: [id number] : 1955 68 From: Santiago Madrid MD PCP: Dr. Son Zambrano MD Status:ADM IN Location: FL[facility] [id number] Santiago Madrid MD on 12/22/23 at 1921 EKG was normal sinus rhythm rate of 81. AR interval is 184 ms per cures duration 84 ms per QT duration 3 and 76 ms. Rogers is normal. In my opinion the EKG is unwell. 12/22/231920 Cosigner Signature (if applicable): cc: Dr. Son Zambrano MD * Signed ADDENDUM by Dr. Santiago Madrid MD on 12/22/[address] Douglas Schreiber contacted me after reviewing x-rays. He is uncertain whether this is a femoral neck or possibly a intertrochanteric fracture. He requested a CAT scan for operative planning, management and treatment. 12/22/231817 Cosigner Signature (if applicable): cc: Dr. Son Zambrano MD * Signed HPI History of Present Illness Chief Complaint: Fall Detail of Chief Complaint: Patient was seen in [employer]. He fell. Injury left hip Informant: patient and EMS Onset/Context/Timing Onset: Hours Mechanism/Context: Blunt Injury and Fall Location of pain/injuries: Left hip Quality of Pain: Dull and Aching Location: Left hip region Current Severity: Mild Maximum Severity: Severe Worsened by: Any type of movement Relieved by: Nothing Associated Symptoms Associated Symptoms: Positive for Loss of function and Inability to ambulate; Negative for Parasthesias, Weakness, Loss of consciousness or Amnesia Narrative Narrative: Patient is a 68-year-old gentleman with history of type 1 diabetes, diabetic retinopathy, hypertension who was staying [employer]. He tripped. He fell onto his back/left side. He screamed because he was unable to get up. Squad transported to ER. He complains of pain in the left hip region. He denies head trauma. He denies headache. Denies neck pain. Denies numbness tingling his arms or legs. He denies cardiac respiratory symptoms. He is on a baby aspirin. He is on no other antithrombotic and no anticoagulant. He states he has seen Dr. York in the past. Prior similar symptoms: No Recent Illness/Hospitalization: No [facility] Medical History Vision problems prostate problems Glaucoma Diabetes type 2, controlled Bilateral cataracts Kidney stone GERD (gastroesophageal reflux disease) Asthma Home Medications ???Medication ???Instructions ???Recorded ???Last Taken ???Type dorzolamide 2 % eye drops BC DAILY 10/06/15 Unknown History latanoprost 0.005 % eye drops 1 drp DAILY 10/06/15 Unknown History simvastatin 40 mg tablet 40 mg PO DAILY 10/06/15 Unknown History tamsulosin 0.4 mg capsule 0.4 mg PO DAILY 10/06/15 Unknown History timolol 0.5 % eye drops BID 10/06/15 Unknown History albuterol sulfate 90 mcg/actuation 2 puff inhalation Q4H PRN Wheezing 07/03/17 Unknown History aerosol inhaler (ProAir HFA) aspirin 81 mg tablet,delayed 81 mg PO QDAY 07/03/17 Unknown History release (Adult Low Dose Aspirin) blood sugar diagnostic (ReliOn #20 ea 07/03/17 Unknown History Prime Test Strips) blood-glucose meter (ReliOn Prime #1 ea 07/03/17 Unknown History Meter) insulin NPH isoph U-100 human 100 5 unit subcut QDAY 07/03/17 Unknown History unit/mL subcutaneous suspension (Novolin N NPH U-100 Insulin isophane) insulin human U-100 NPH-regulr 35 unit subcut QDAY 07/03/17 Unknown History 70-30 mix 100 unit/mL subcutaneous susp (Humulin 70/30 U-100 Insulin) insulin regular human 100 unit/mL 25 unit subcut QPM 07/03/17 Unknown History injection solution (Novolin R Regular U-100 Insulin) insulin syringe-needle U-100 0.5 #10 ea 07/03/17 Unknown History mL 31 gauge x 12/05 (BD Insulin Syringe Ult-Fine II) multivitamin 1 cap PO QAM 07/03/17 Unknown History vitamin B complex 1 cap PO QDAY 07/03/17 Unknown History enalapril maleate 20 mg tablet 20 mg PO BID 07/24/17 Unknown History hydrocodone-homatropine 5 mg-1.5 5 ml PO Q6H PRN PRN Cough ##60 07/24/17 Unknown Rx mg/5 mL (5 mL) oral syrup meclizine 25 mg tablet 25 mg PO TID PRN dizziness #20 tabs 07/03/22 Unknown Rx nitrofurantoin 100 mg PO Q12H 7 days #14 caps 07/06/22 Unknown Rx monohydrate/macrocrystals 100 mg capsule (Macrobid) Allergy/AdvReac Type Severity Reaction Status Date / Time No Known Allergies Allergy Verified 12/22/23 16:58 Family History Father Asthma Kidney disease Cancer Brother Heart disease Asthma Sister Heart disease Surgical History H/O skin graft H/O eye surgery (more content not included)... Normal [facility] H AND P Exam - [facility] 12-22-2023 H&P Exam - Hospitalist [facility] Medical Records Department [address] [place] [address] H P Exam - Hospitalist 12/22/23 1810 MR#: [id number] Acct: [id number] Name: JING MCKEON Rep #: [id number] : 1955 68 From: Jarad Burch MD PCP: Dr. Son Zambrano MD Status:REG ER Location: ED HPI - General General Date of Admission: 12/22/23 Date of Service: 12/22/23 Chief Complaint: Hip fracture HPI Narrative JING MCKEON, is a 68 M who presents to the ED following a recent fall on his back/left side. He has a past medical history of type 1 diabetes, diabetic retinopathy, hypertension. He was brought to the ED for these concerns. He was working in his garage, there is an area of on even cement where he tripped and fell on his left side. No concerns regarding blackout, palpitations, nausea, vomiting. No dizziness in the past. In the ED he underwent a 3 view x-ray of the left hip showing a basicervical femoral neck fracture without displacement. This was discussed with orthopedics and he is planned for surgery tomorrow. He is being admitted to the medicine service for management of his medical concerns. [facility] Medical History Vision problems prostate problems Glaucoma Diabetes type 2, controlled Bilateral cataracts Kidney stone GERD (gastroesophageal reflux disease) Asthma Home Medications ???Medication ???Instructions ???Recorded ???Last Taken ???Type dorzolamide 2 % eye drops BC DAILY 10/06/15 Unknown History latanoprost 0.005 % eye drops 1 drp DAILY 10/06/15 Unknown History simvastatin 40 mg tablet 40 mg PO DAILY 10/06/15 Unknown History tamsulosin 0.4 mg capsule 0.4 mg PO DAILY 10/06/15 Unknown History timolol 0.5 % eye drops BID 10/06/15 Unknown History albuterol sulfate 90 mcg/actuation 2 puff inhalation Q4H PRN Wheezing 07/03/17 Unknown History aerosol inhaler (ProAir HFA) aspirin 81 mg tablet,delayed 81 mg PO QDAY 07/03/17 Unknown History release (Adult Low Dose Aspirin) blood sugar diagnostic (ReliOn #20 ea 07/03/17 Unknown History Prime Test Strips) blood-glucose meter (ReliOn Prime #1 ea 07/03/17 Unknown History Meter) insulin NPH isoph U-100 human 100 5 unit subcut QDAY 07/03/17 Unknown History unit/mL subcutaneous suspension (Novolin N NPH U-100 Insulin isophane) insulin human U-100 NPH-regulr 35 unit subcut QDAY 07/03/17 Unknown History 70-30 mix 100 unit/mL subcutaneous susp (Humulin 70/30 U-100 Insulin) insulin regular human 100 unit/mL 25 unit subcut QPM 07/03/17 Unknown History injection solution (Novolin R Regular U-100 Insulin) insulin syringe-needle U-100 0.5 #10 ea 07/03/17 Unknown History mL 31 gauge x / (BD Insulin Syringe Ult-Fine II) multivitamin 1 cap PO QAM 07/03/17 Unknown History vitamin B complex 1 cap PO QDAY 07/03/17 Unknown History enalapril maleate 20 mg tablet 20 mg PO BID 07/24/17 Unknown History hydrocodone-homatropine 5 mg-1.5 5 ml PO Q6H PRN PRN Cough ##60 07/24/17 Unknown Rx mg/5 mL (5 mL) oral syrup meclizine 25 mg tablet 25 mg PO TID PRN dizziness #20 tabs 07/03/22 Unknown Rx nitrofurantoin 100 mg PO Q12H 7 days #14 caps 07/06/22 Unknown Rx monohydrate/macrocrystals 100 mg capsule (Macrobid) Allergy/AdvReac Type Severity Reaction Status Date / Time No Known Allergies Allergy Verified 12/22/23 16:58 Family History Father Asthma Kidney disease Cancer Brother Heart disease Asthma Sister Heart disease Surgical History H/O skin graft H/O eye surgery Social History (Updated 12/22/23 @ 17:[address] Santiago Madrid MD) household members: spouse Smoking Status: Never smoker second hand exposure: No alcohol intake: never substance use type: does not use caffeine: No ROS Review of Systems ROS Unobtainable: Denies due to encephalopathy, due to endotracheal tube, due to mental condition, due to mental status or other Constitutional Constitutional: Denies anorexia, change in weight, chills, fatigue, fever(s), malaise, night sweats, weakness or other Eyes Eyes: Denies blurry vision, change in eye color, change in vision, discharge from eye(s), double vision, erythema, eye pain, loss of vision or other ENT HEENT: Denies abnormal hearing, dysphagia, ear pain, epistaxis, headache(s), hearing loss, nasal congestion, nasal discharge, post nasal drip, sinus pressure, sore throat or other Cardiovascular Cardiovascular: Denies chest pain, claudication, dyspnea on exertion, edema, lightheadedness, orthopnea, palpitations, paroxysmal nocturnal dyspnea, rapid heart rate, syncope or other Respiratory/Chest Respiratory/Chest: Denies cough, dyspnea, excessive phlegm production, hemoptysis, (more content not included)... Normal [facility] HIP, UNI W/ Pelvis 2-3 Views on 12-22-2023 HIP, UNI W/ Pelvis 2-3 Views [facility] Imaging Services [address] [place], [place] [id number] HIP, UNI W/ Pelvis 2-3 Views MR#: [id number] Acct: [id number] Name: JING MCKEON Rep #: [id number] : 1955 M 68 From: Andrew Narayanan MD PCP: Dr. Son Zambrano MD Status: ADM IN Study: HIP, UNI W/ Pelvis 2-3 Views Date of Exam: 08/15 Exam# [id number] Ordering Dr: Santiago Madrid MD [id number] INDICATION: Injury/Pain EXAMINATION/TECHNIQUE: X-RAY - XR Hip Unilateral with Pelvis when performed; 2-3 Views COMPARISON: Chest radiograph on same day FINDINGS: HIPS: Linear lucency concerning for nondisplaced left intratrochanteric fracture. Left femoral head remains aligned with the acetabulum with mild joint space narrowing and minimal osteophyte formation. Normal right hip alignment with moderate joint space narrowing. . PELVIC BONES: No displaced fracture, destructive or sclerotic lesions is seen within the osseous pelvis. Note that overlapping bowel shadows may however obscure fine detail. Sacroiliac joints are unremarkable. No widening of the pubic symphysis. SOFT TISSUES: Peripheral atherosclerosis. Nonspecific 2.5 cm coarse density projects over the proximal right thigh. RAD/HIP, UNI W/ Pelvis 2-3 Views IMPRESSION: Findings concerning for nondisplaced left intertrochanteric femur fracture. Electronically Signed: Andrew Narayanan MD at 19:33 EDT , CC: Dr. Son Zambrano MD; Dr. Santiago Madrid MD Manager Spa: Signed Normal [facility] Partial Thromboplast Timeon 12-22-2023 aPTT Coag (Bld) [Time] 26.1 s Normal 24.1-36.2 [facility] Comment on above: Performed By: #### L 501.2300, L501.5200, L500.2500 #### [facility] [address] [place], [address] Pelvis without IV Contraston 12-22-2023 Pelvis without IV Contrast [facility] Imaging Services [address] [place] [address] Pelvis without IV Contrast MR#: [id number] Acct: [id number] Name: JING MCKEON Rep #: [id number] : 1955 68 From: Andrew Narayanan MD PCP: Dr. Son Zambrano MD Status: ADM IN Study: Pelvis without IV Contrast Date of Exam: 12/21 Exam# [id number] Ordering Dr: Santiago Madrid MD [id number] INDICATION: Evaluate fracture for operative management EXAMINATION: CT PELVIS BONE - CT Pelvis W/O Contrast Injection TECHNIQUE: Routine noncontrast bone CT protocol was performed of the pelvis. 2-D reformats were performed by the technologist. A radiation dose optimization technique was used for this scan. IV Contrast dosage and agent: None. COMPARISON: [radiograph on same day. FINDINGS: SOFT TISSUES: Mild lateral hip subcutaneous soft tissue edema. No gross subcutaneous soft tissue or intramuscular hematoma. No radiopaque foreign body. Left inguinal fat-containing hernia without inflammation. BONES/JOINTS: Left intratrochanteric femur fracture with mild impaction and comminution along the inferior medial margin at the lesser trochanter. Left femoral head remains aligned with the acetabulum with moderate joint space narrowing and mild osteophyte formation. Normal right hip alignment with moderate joint space narrowing and osteophyte formation. No right femoral fracture is seen. No fracture of the osseous pelvis normal pubic symphysis alignment. Normal bowel signal and alignment with mild degenerative change. No aggressive osseous lesion. PELVIS: Aortic atherosclerosis without ectasia. Large prostate. Bladder 8.1 x 7.3 x 8.5 cm (261 mL) without wall thickening or surrounding inflammation. No evidence of internal pelvic hemorrhage. Imaged portions of bowel are nondistended without focal wall thickening CT/Pelvis without IV Contrast IMPRESSION: Left intratrochanteric femur fracture with mild impaction and comminution at the lesser trochanter. Moderate bilateral hip osteoarthritis. Electronically Signed: Andrew Narayanan MD at 20:38 EDT Reading Location ID and State: [facility] / [place] Tel , Service support , CC: Dr. Son Zambrano MD; Dr. Santiago Madrid MD Manager Spa: Signed Normal [facility] Prothrombin Time w/INRon INR Coag (PPP) [Relative time] 1.0 {INR} Normal [facility] Comment on above: Performed By: #### L 501.2300, L501.5200, L500.2500 #### [facility] [address] [place], [place], [id number] PT Coag (PPP) [Time] 12.8 s Normal 11.7-14.9 [facility] Comment on above: Performed By: #### L 501.2300, L501.5200, L500.2500 #### [facility] [address] [place], [address] Colonoscopy Study observatio non 12-07-2023 [facility] Gastrointestinal Endoscopy Patient Name: Jing Mckeon Procedure Date: 12/07/2023 8:00 AM Date of : 1955 Admit Type: Outpatient Age: 68 Gender: Male Note Status: Finalized Procedure: Colonoscopy - screening high risk Indications: High risk colon cancer surveillance: Personal history of colonic polyps Providers: Taylor Ramey MD Patient Profile: Refer to note in patient chart for documentation of history and physical. Last Colonoscopy: 2016. Referring Physician: Taylor Ramey MD (Referring MD), Son Zambrano (Referring MD) Medicines: Midazolam 4 mg IV, Fentanyl 100 micrograms IV Complications: No immediate complications. Requesting Provider: Procedure: Pre-Anesthesia Assessment: - Prior to the procedure, a History and Physical was performed, and patient medications and allergies were reviewed. The patient is competent. The risks and benefits of the procedure and the sedation options and risks were discussed with the patient. All questions were answered and informed consent was obtained. Patient identification and proposed procedure were verified by the physician in the pre-procedure area. Mental Status Examination: alert and oriented. Airway Examination: normal oropharyngeal airway and neck mobility. Respiratory Examination: clear to auscultation. CV Examination: normal. Prophylactic Antibiotics: The patient does not require prophylactic antibiotics. Prior Anticoagulants: The patient has taken no anticoagulant or antiplatelet agents. ASA Grade Assessment: III - A patient with severe systemic disease. After reviewing the risks and benefits, the patient was deemed in satisfactory condition to undergo the procedure. The anesthesia plan was to use moderate sedation / analgesia (conscious sedation). Immediately prior to administration of medications, the patient was re-assessed for adequacy to receive sedatives. The heart rate, respiratory rate, oxygen saturations, blood pressure, adequacy of pulmonary ventilation, and response to care were monitored throughout the procedure. The physical status of the patient was re-assessed after the procedure. After I obtained informed consent, the scope was passed under direct vision. Throughout the procedure, the patient's blood pressure, pulse, and oxygen saturations were monitored continuously. The Colonoscope was introduced through the anus and advanced to the cecum, identified by the appendiceal orifice, IC valve and transillumination. The colonoscopy was performed without difficulty. The patient tolerated the procedure well. The quality of the bowel preparation was adequate. The appendiceal orifice and the rectum were photographed. Moderate Sedation: The administration of moderate sedation was initiated at 08:09 AM. Moderate (conscious) sedation was personally administered by the endoscopist. The following parameters were monitored: oxygen saturation, heart rate, blood pressure, respiratory rate, EKG, adequacy of pulmonary ventilation, and response to care. Total physician intraservice time was 20 minutes. Findings: The perianal and digital rectal examinations were normal. Non-bleeding external and internal hemorrhoids were found. Impression: - Non-bleeding external and internal hemorrhoids. - No specimens collected. Recommendation: - Repeat colonoscopy in 5 years for surveillance for history of colon polyps. - Return to primary care physician PRN. - Patient has a contact number available for emergencies. The signs and symptoms of potential delayed complications were discussed with the patient. Return to normal activities tomorrow. (more content not included)... [facility] Radiology Study observation (narrative) [facility] GLUCOSE, BLOOD (POC)on 12-06 Glucose [Mass/Vol] 88 mg/dL 74 - 99 mg/dL [facility] Comment on above: Location:[facility], [address], [place], [place], [facility] The Accu-Chek Inform II glucose meter has not been approved for testing on patients receiving intensive medical intervention or therapy and results from this point of care glucose test should not be used for patient management decisions in these cases. Inaccurate results may also occur from other interfering factors, such as N-acetylcysteine (blood concentrations of greater than 5mg/dL), galactose, extremes of hematocrit (<10 or >65), or high doses of ascorbic acid (vitamin C) greater than 3mg/dL. Consider alternate testing mechanisms (e.g. core lab, blood gas instrument) in the above situations. [facility] GLUCOSE, BLOOD (POC)on 03-19 Glucose [Mass/Vol] 68 mg/dL 74 - 99 mg/dL [facility] Absolute lymphocyte counton 07-03-2022 Lymphocytes Auto (Unsp spec) [#/Vol] 2.32 10*3/uL 0.83-4.51 [facility] Work Phone: Amorphous sediment detection in urine sediment by light microscopyon 07-03-2022 Amorphous sediment LM Ql (Urine sed) 1+ [facility] Work Phone: Basophil percentageon 2021 Basophil percentage 0 SEEN /hpf 0-5 [facility] Work Phone: Basophils/100 WBC (Bld) 1.0 % 0-1 [facility] Work Phone: Bilirubin [Mass/Vol] 0.40 mg/dL 0.20-1.00 [facility] Work Phone: Comment on above: For patients on eltr ombopag therapy, use of Dimension Rio TBIL is not recommended. Chloride [Moles/Vol] 109 mmol/L 98-107 [facility] Work Phone: Eosinophils/100 WBC (Bld) 3.4 % 0-5 [facility] Work Phone: Glucose [Mass/Vol] 169 mg/dL 74-106 [facility] Work Phone: Comment on above: Fasting Glucose resu lt greater than or equal to 126 mg/dL suggests DIABETES MELLITUS per A.D.A. criteria. Neutrophils (Bld) [#/Vol] 7.0 10*3/uL 2.0-7.7 [facility] Work Phone: Neutrophils/100 WBC (Bld) 67.0 % 47-70 [facility] Work Phone: Potassium [Moles/Vol] 4.1 mmol/L 3.5-5.1 [facility] Work Phone: Protein [Mass/Vol] 7.2 g/dL 6.4-8.2 [facility] Work Phone: Sodium [Moles/Vol] 142 mmol/L 136-145 [facility] Work Phone: WBC (Bld) [#/Vol] 10.4 10*3/uL 4.4-11.0 [facility] Work Phone: Bilirubin Test strip Ql (U)o n 07-03-2022 Bilirubin Ql (U) Negative Negative [facility] Work Phone: Blood erythrocytes count (nu mber/volume)on 07-03-2022 RBC (Bld) [#/Vol] 4.73 10*6/uL 4.6-6.2 [facility] Work Phone: Blood hemoglobin measurement (mass/volume)on 07-03-2022 Hemoglobin (Bld) [Mass/Vol] 14.8 g/dL 13.0-16.5 [facility] Work Phone: Blood lymphocytes/100 leukoc yteson 07-03-2022 Lymphocytes/100 WBC (Bld) 22.4 % 19-41 [facility] Work Phone: Blood monocytes/100 leukocyt eson 07-03-2022 Monocytes/100 WBC (Bld) 5.8 % 0-10 [facility] Work Phone: Blood platelet mean volumeon 07-03-2022 Platelet mean volume (Bld) [Entitic vol] 11.5 fL 6.2-12.0 [facility] Work Phone: Determination of erythrocyte mean corpuscular volume (MCV)on 07-03-2022 MCV (RBC) [Entitic vol] 89.4 fL 80-94 [facility] Work Phone: Hematocrit Auto (Bld) [Volum e fraction]on 07-03-2022 Hematocrit (Bld) [Volume fraction] 42.3 % 40-54 [facility] Work Phone: Ketones Test strip Ql (U)on 07-03-2022 Ketones Ql (U) Negative Negative [facility] Work Phone: Laboratory - Chemistry and C hemistry - challengeon 07-03-2022 ALP [Catalytic activity/Vol] 111 U/L 45-117 [facility] Work Phone: ALT [Catalytic activity/Vol] 25 U/L 16-61 [facility] Work Phone: CO2 [Moles/Vol] 28.0 mmol/L 21.0-32.0 [facility] Work Phone: Globulin (S) [Mass/Vol] 3.5 g/dL 2.2-4.2 [facility] Work Phone: Lipase [Catalytic activity/Vol] 91 U/L 73-393 [facility] Work Phone: Urea nitrogen/Creatini ne [Mass ratio] 21.1 mg/mg 10-20 [facility] Work Phone: Laboratory - Hematology and Cell countson 07-03-2022 Erythrocyte distribution width (RBC) [Entitic vol] 41.4 fL 35.1-43.9 [facility] Work Phone: Erythrocyte distribution width (RBC) [Ratio] 12.7 % 11.6-14.6 [facility] Work Phone: Immature granulocytes/100 WBC (Bld) 0.400 % 0.0-0.9 [facility] Work Phone: Comment on above: IG% - Immature Granu locytes (promyelocytes, myelocytes and metamyelocytes) > 1% indicates that a LEFT SHIFT is Present. MCH (RBC) [Entitic mass] 31.3 pg 27.0-32.0 [facility] Work Phone: Nucleated RBC/100 WBC (Bld) [Ratio] 0 % 0-5 [facility] Work Phone: MCHC Auto (RBC) [Mass/Vol]on 07-03-2022 MCHC (RBC) [Mass/Vol] 35.0 g/dL 32-36 [facility] Work Phone: Mucus LM Ql (Urine sed)on Mucus Ql (Urine sed) 0 SEEN /hpf [facility] Work Phone: Nitrite Test strip Ql (U)on 07-03-2022 Nitrite Ql (U) Negative Negative [facility] Work Phone: No Panel Informationon 07-03 Estimated Creatinine Clearance Calc 73.44 ml/min [facility] Work Phone: Estimated GFR (MDRD) Amer 108 mL/min >60 [facility] Work Phone: Comment on above: GFR Calc Estimated GFR (MDRD) Non-Af Amer 89 mL/min >60 [facility] Work Phone: Comment on above: Non- GFR Calc Troponin I High Sensitivity 6 pg/mL 3.0-78.0 [facility] Work Phone: Comment on above: Please Note: New [place] t Units and Gender Specific Reference Ranges. For more information see Policy Stat Procedure Rio High Sensitivity Troponin (TNIH) and attachments. Platelets bldon 07-03-2022 Platelets (Bld) [#/Vol] 243 10*3/uL 150-450 [facility] Work Phone: Protein Test strip Ql (U)on 07-03-2022 Protein Ql (U) 30 mg/dl Negative [facility] Work Phone: Serum or plasma albumin kim urement (mass/volume)on 07-03-2022 Albumin [Mass/Vol] 3.7 g/dL 3.2-5.0 [facility] Work Phone: Serum or plasma albumin/glob ulin mass ratioon 07-03-2022 Albumin/Globulin [Mass ratio] 1.1 {ratio} 0.9-2.4 [facility] Work Phone: Serum or plasma calcium kim urement (mass/volume)on 07-03-2022 Calcium [Mass/Vol] 9.6 mg/dL 8.5-10.1 [facility] Work Phone: Serum or plasma creatinine m easurement (mass/volume)on 07-03-2022 Creatinine [Mass/Vol] 0.90 mg/dL 0.70-1.30 [facility] Work Phone: Comment on above: The validity of the calculated GFR & GFRAA in patients over 70 years has not been determined. Clinical correlation is essential. Serum or plasma urea nitroge n measurement (mass/volume)on 07-03-2022 Urea nitrogen [Mass/Vol] 19 mg/dL 7-18 [facility] Work Phone: Squamous epithelial cells de tection in urine sediment by light microscopyon 07-03-2022 Epithelial cells.squamous LM Ql (Urine sed) 0 SEEN /hpf 0-5 [facility] Work Phone: Thin prep Papanicolaou smear with manual screeningon 07-03-2022 Thin prep Papanicolaou smear with manual screening 20 U/L 15-37 [facility] Work Phone: Thin prep Papanicolaou smear with manual screening 5 5-15 [facility] Work Phone: Urine blood detectionon 06-22 RBC Ql (U) Negative Negative [facility] Work Phone: RBC Ql (U) 0 SEEN /hpf 0-5 [facility] Work Phone: Urine clarityon 07-03-2022 Clarity (U) Sl. Cloudy Clear [facility] Work Phone: Urine color determinationon 07-03-2022 Color (U) Yellow Yellow [facility] Work Phone: Urine glucose detectionon Glucose Ql (U) Normal mg/dl Normal [facility] Work Phone: Urine leukocyte esterase det ection by dipstickon 07-03-2022 Leukocyte esterase Test strip Ql (U) 25 /ul Negative [facility] Work Phone: Urine pHon 07-03-2022 pH (U) 7.0 [pH] 5.0 - 8.0 [facility] Work Phone: Urine sediment bacteria coun t by microscopy (number/high power field)on 07-03-2022 Bacteria LM.HPF (Urine sed) [#/Area] 1 /[HPF] None Seen [facility] Work Phone: Urine specific gravity measu rementon 07-03-2022 Specific gravity (U) [Rel density] 1.010 1.002-1.030 [facility] Work Phone: Urobilinogen Auto test strip Ql (U)on 07-03-2022 Urobilinogen Ql (U) Normal mg/dl Normal [facility] Work Phone: XR Chest PA and Lateralon IMPRESSION: No acute radiographic abnormality. Manager Spa: TIFFANY Transcribe Date/Time: Nov 01 2020 1:12P Dictated by : JENNIFER PAYNE MD This examination was interpreted and the report reviewed and electronically signed by: JENNIFER PAYNE MD on Nov 01 2020 1:13PM [facility] DIVISION OF RADIOLOGY * * *Final Report* * * DATE OF EXAM: Nov 01 2020 1:02PM [id number] [id number] - XR CHEST 2V FRONTAL/LAT / PROCEDURE REASON: Suspected 2019 novel coronavirus infection * * * * Physician Interpretation * * * * EXAMINATION: CHEST RADIOGRAPH (2 VIEW FRONTAL & LATERAL) CLINICAL HISTORY: Suspected 2019 novel coronavirus infection MQ: XC2_6 EXAM DATE/TIME: 11/01/2020 1:02 PM COMPARISON: 09/13/2010 RESULT: Lines, tubes, and devices: None. Lungs and pleura: No consolidation. No lung mass. No pleural effusion. No pneumothorax. Cardiomediastinal silhouette: Normal cardiomediastinal silhouette. Bones and soft tissues: Degenerative changes are present within the thoracic spine. DIVISION OF RADIOLOGY Provider, [facility] - 11/01/2020 * * *Final Report* * * DATE OF EXAM: Nov 01 2020 1:02PM WOX [id number] - XR CHEST 2V FRONTAL/LAT / PROCEDURE REASON: Suspected 2019 novel coronavirus infection * * * * Physician Interpretation * * * * EXAMINATION: CHEST RADIOGRAPH (2 VIEW FRONTAL & LATERAL) CLINICAL HISTORY: Suspected 2019 novel coronavirus infection MQ: XC2_6 EXAM DATE/TIME: 11/01/2020 1:02 PM COMPARISON: 09/13/2010 RESULT: Lines, tubes, and devices: None. Lungs and pleura: No consolidation. No lung mass. No pleural effusion. No pneumothorax. Cardiomediastinal silhouette: Normal cardiomediastinal silhouette. Bones and soft tissues: Degenerative changes are present within the thoracic spine. IMPRESSION IMPRESSION: No acute radiographic abnormality. Manager Spa: TIFFANY Transcribe Date/Time: Nov 01 2020 1:12P Dictated by : JENNIFER PAYNE MD This examination was interpreted and the report reviewed and electronically signed by: JENNIFER PAYNE MD on Nov 01 2020 1:13PM EST [facility] Radiology Study observation (narrative) [facility] XR Chest PA and LateralOrder ed By: [facility] Provider on 11-01-2020 [facility] Lab Report: Comprehensive Me glory Kruse 05-10-2017 Albumin mass conc 3.6 g/dL Invalid Interpretation Code 3.4-5.0 [facility] Work Phone: Albumin/Globulin mass ratio 1 {ratio} Invalid Interpretation Code 0.9-2.4 [facility] Work Phone: ALP enzyme act/vol (Bld) 119 U/L High 45-117 [facility] Work Phone: ALT enzyme act/vol 25 U/L Invalid Interpretation Code 12-78 [facility] Work Phone: Anion gap 4 molar conc 7 Invalid Interpretation Code 5-15 [facility] Work Phone: AST enzyme act/vol 20 U/L Invalid Interpretation Code 15-37 [facility] Work Phone: Bilirubin mass conc 0.50 mg/dL Invalid Interpretation Code 0.20-1.00 [facility] Work Phone: Calcium mass conc 8.8 mg/dL Invalid Interpretation Code 8.5-10.1 [facility] Work Phone: Chloride molar conc 106 mmol/L Invalid Interpretation Code 98-107 [facility] Work Phone: CO2 ppres (BldV) 29.0 mmol/L Invalid Interpretation Code 21.0-32.0 [facility] Work Phone: Creatinine mass conc 0.82 mg/dL Invalid Interpretation Code 0.70-1.30 [facility] Work Phone: EST GFR - AA 122 mL/min Invalid Interpretation Code >60 [facility] Work Phone: GFR/1.73 sq M predicted among non-blacks MDRD vol rate/area (S/P/Bld) 101 mL/min/{1.73_m2} Invalid Interpretation Code >60 [facility] Work Phone: Globulin Calculated mass conc (S) 3.7 g/dL Invalid Interpretation Code 2.2-4.2 [facility] Work Phone: Glucose mass conc 147 mg/dL High 70-110 [facility] Work Phone: Potassium molar conc 4.1 mmol/L Invalid Interpretation Code 3.5-5.1 [facility] Work Phone: Protein mass conc 7.3 g/dL Invalid Interpretation Code 6.4-8.2 [facility] Work Phone: Sodium molar conc 142 mmol/L Invalid Interpretation Code 136-145 [facility] Work Phone: Urea nitrogen mass conc 20 mg/dL High 7-18 [facility] Work Phone: Urea nitrogen/Creatini ne mass ratio 24.5 RATIO High 10-20 [facility] Work Phone: Lab Report: Hemoglobin A1con 05-10-2017 Hemoglobin A1c/Hemoglobin.to juan mass fraction (Bld) 8.5 % High 4.2-6.3 [facility] Work Phone: Office Visit: Follow up diab etes appt.on 03-21-2017 Documentation of current medications (procedure) Done Invalid Interpretation Code [facility] Work Phone: Protein mass conc Done Invalid Interpretation Code [facility] Work Phone: Office Visit: Diabetes follo w upon 10-25-2016 Dietary management education, guidance, and counseling (procedure) yes Invalid Interpretation Code [facility] Work Phone: Documentation of current medications (procedure) Done Invalid Interpretation Code [facility] Work Phone: Fall risk assessment No Invalid Interpretation Code [facility] Work Phone: Tobacco smoking status NHIS Never Invalid Interpretation Code [facility] Work Phone: Tobacco smoking status NHIS Never smoker Invalid Interpretation Code [facility] Work Phone: Tobacco use [facility] Never smoker Invalid Interpretation Code [facility] Work Phone: Lab Report: Hemoglobin A1con 10-24-2016 HbA1c 7.9 % High 4.2-6.3 [facility] Work Phone: Lab Report: Lipid Profileon 10-24-2016 Cholesterol 168 mg/dL Invalid Interpretation Code 200 [facility] Work Phone: HDL Cholesterol 77 mg/dL Invalid Interpretation Code [facility] Work Phone: LDL Cholesterol 77 mg/dL Invalid Interpretation Code 0-130 [facility] Work Phone: Triglyceride 71 mg/dL Invalid Interpretation Code [facility] Work Phone: very low density lipoproteins 14 mg/dL Invalid Interpretation Code 5-40 [facility] Work Phone: Office Visit: [facility]-2016 Adolescent depression screening assessment Adolescent depression screening assessment Invalid Interpretation Code [facility] Work Phone: Adult depression screening assessment Adult depression screening assessment Invalid Interpretation Code [facility] Work Phone: PHQ-9 quick depression assessment panel [Reported.PHQ] Adult depression screening assessment Invalid Interpretation Code [facility] Work Phone: Vital Signs Date Time Vital Sign Value Performing Clinician Facility 03-04-2025 14:24-0400 Body height 170.2 cm Pst 1 [facility] 03-04-2025 14:24-0400 Body mass index (BMI) [Ratio] 26.75 kg/m2 Pst 1 [facility] 03-04-2025 14:24-0400 Body temperature 98.1 [degF] Pst 1 [facility] 03-04-2025 14:24-0400 Body weight 77.47 kg Pst 1 [facility] 03-04-2025 14:24-0400 Diastolic blood pressure 76 mm[Hg] Pst 1 [facility] 03-04-2025 14:24-0400 Heart rate 70 /min Pst 1 [facility] 03-04-2025 14:24-0400 Respiratory rate 18 /min Pst [address] [place] [address] 03-04-2025 14:24-0400 SaO2% (BldA) [Mass fraction] 96 % Pst 1 [facility] 03-04-2025 14:24-0400 Systolic blood pressure 150 mm[Hg] Pst 1 [facility] 02-10-2025 14:30-0400 Body height 170.2 cm Prudencio Mckeon MD Work Phone: [facility] 02-10-2025 14:30-0400 Body mass index (BMI) [Ratio] 26.31 kg/m2 Prudencio Mckeon MD Work Phone: [facility] 02-10-2025 14:30-0400 Body weight 76.2 kg Prudencio Mckeon MD Work Phone: [facility] 02-10-2025 14:30-0400 Heart rate 66 /min Prudencio Mckeon MD Work Phone: [facility] 02-10-2025 14:30-0400 Respiratory rate 14 /min Prudencio Mckeon MD Work Phone: [facility] 01-05-2025 10:22-0400 Body height 170.2 cm Prudencio Mckeon MD Work Phone: [facility] 01-05-2025 10:22-0400 Body mass index (BMI) [Ratio] 26 kg/m2 Prudencio Mckeon MD Work Phone: [facility] 01-05-2025 10:22-0400 Body weight 75.3 kg Prudencio Mckeon MD Work Phone: [facility] 12-31-2024 10:47-0400 Body mass index (BMI) [Ratio] 26 kg/m2 Jud Podlogar GILL BOX FIXER.YARD WORKER Work Phone: [facility] 12-31-2024 10:47-0400 Body weight 75.3 kg Jud Podlogar [employer] BOX [employer]ER.YARD WORKER Work Phone: [facility] 12-31-2024 10:47-0400 Diastolic blood pressure 82 mm[Hg] Jud Podlogar [employer] BOX [employer]ER.YARD WORKER Work Phone: [facility] 12-31-2024 10:47-0400 Heart rate 69 /min Jud Podlogar G[employer] BOX FIXER.YARD WORKER Work Phone: [facility] 12-31-2024 10:47-0400 Respiratory rate 16 /min Jud Podlogar [employer]ILL BOX [employer]ER.YARD WORKER Work Phone: [facility] 12-31-2024 10:47-0400 SaO2% (BldA) [Mass fraction] 96 % Jud Albright APRN.CNP Work Phone: [facility] 12-31-2024 10:47-0400 Systolic blood pressure 136 mm[Hg] Jud Albright APRN.CNP Work Phone: [facility] 11-03-2024 09:31-0400 Body height 170.2 cm Marcella Gee APRN.YARD WORKER, DNP Work Phone: [facility] 11-03-2024 09:31-0400 Body mass index (BMI) [Ratio] 26.78 kg/m2 Marcella Gee APRN.YARD WORKER, DNP Work Phone: [facility] 11-03-2024 09:31-0400 Body temperature 97.7 [degF] Marcella Gee APRN.YARD WORKER, DNP Work Phone: [facility] 11-03-2024 09:31-0400 Body weight 77.56 kg Marcella Gee APRN.YARD WORKER, DNP Work Phone: [facility] 11-03-2024 09:31-0400 Diastolic blood pressure 74 mm[Hg] Marcella Gee APRN.YARD WORKER, DNP Work Phone: [facility] 11-03-2024 09:31-0400 Heart rate 84 /min Marcella Gee APRN.YARD WORKER, DNP Work Phone: [facility] 11-03-2024 09:31-0400 Respiratory rate 14 /min Marcella Gee APRN.YARD WORKER, DNP Work Phone: [facility] 11-03-2024 09:31-0400 SaO2% (BldA) [Mass fraction] 98 % Marcella Gee APRN.YARD WORKER, DNP Work Phone: [facility] 11-03-2024 09:31-0400 Systolic blood pressure 130 mm[Hg] Marcella Gee APRN.YARD WORKER, DNP Work Phone: [facility] 10-22-2024 14:02-0400 Body mass index (BMI) [Ratio] 26.41 kg/m2 Son Zambrano MD Work Phone: [facility] 10-22-2024 14:02-0400 Body temperature 97 [degF] Son Zambrano MD Work Phone: [facility] 10-22-2024 14:02-0400 Body weight 76.5 kg Son Zambrano MD Work Phone: [facility] 10-22-2024 14:02-0400 Diastolic blood pressure 64 mm[Hg] Son Zambrano MD Work Phone: [facility] 10-22-2024 14:02-0400 Heart rate 76 /min Son Zambrano MD Work Phone: [facility] 10-22-2024 14:02-0400 Respiratory rate 16 /min Son Zambrano MD Work Phone: [facility] 10-22-2024 14:02-0400 Systolic blood pressure 124 mm[Hg] Son Zambrano MD Work Phone: [facility] 06-23-2024 12:51-0500 Body mass index (BMI) [Ratio] 26.31 kg/m2 Jossy Caruso G[employer] BOX FIXER.CAVALRY [employer]OUT Work Phone: [facility] 06-23-2024 12:51-0500 Body weight 76.2 kg Jossy Caruso [employer]OX [employer]ER.CAVALRY [employer]OUT Work Phone: [facility] 06-23-2024 12:51-0500 Diastolic blood pressure 72 mm[Hg] Jossy Caruso [employer]ER.[employer]RY [employer]OUT Work Phone: [facility] 06-23-2024 12:51-0500 Heart rate 76 /min Jossy Caruso [employer]ER.[employer]RY [employer]OUT Work Phone: [facility] 06-23-2024 12:51-0500 Respiratory rate 16 /min Jossy Caruso [employer]OX [employer]ER.CA[employer]RY [employer]OUT Work Phone: [facility] 06-23-2024 12:51-0500 Systolic blood pressure 127 mm[Hg] Jossy Caruso [employer]OX [employer]ER.CAVALRY SCOUT Work Phone: [facility] 02-21-2024 10:35-0400 Body mass index (BMI) [Ratio] 26.24 kg/m2 Jossy Caruso [employer]OX [employer]ER.CAVALRY SCOUT Work Phone: [facility] 02-21-2024 10:35-0400 Body weight 76 kg Jossy Caruso G[employer] BOX [employer]ER.CAVALRY SCOUT Work Phone: [facility] 02-21-2024 10:35-0400 Diastolic blood pressure 78 mm[Hg] Jossy Caruso [employer]OX [employer]ER.CA[employer]RY [employer]OUT Work Phone: [facility] 02-21-2024 10:35-0400 Heart rate 86 /min Jossy Caruso [employer]OX [employer]ER.CA[employer]RY [employer]OUT Work Phone: [facility] 02-21-2024 10:35-0400 Respiratory rate 16 /min Jossy Caruso [employer]ER.CA[employer]RY [employer]OUT Work Phone: [facility] 02-21-2024 10:35-0400 SaO2% (BldA) [Mass fraction] 96 % Jossy Caruso [employer]OX [employer]ER.[employer]RY [employer]OUT Work Phone: [facility] 02-21-2024 10:35-0400 Systolic blood pressure 126 mm[Hg] Jossy Caruso G[employer]OX [employer]ER.CAVALRY SCOUT Work Phone: [facility] 01-15-2024 13:33-0400 Body mass index (BMI) [Ratio] 26.31 kg/m2 Emilia Luca G[employer] BOX [employer]ER.YARD WORKER Work Phone: [facility] 01-15-2024 13:33-0400 Body weight 76.2 kg Emilia Luca [employer] BOX FIXER.YARD WORKER Work Phone: [facility] 01-15-2024 13:33-0400 Diastolic blood pressure 60 mm[Hg] Emilia Luca [employer] BOX [employer]ER.YARD WORKER Work Phone: [facility] 01-15-2024 13:33-0400 Heart rate 78 /min Emilia Luca [employer]OX [employer]ER.YARD WORKER Work Phone: [facility] 01-15-2024 13:33-0400 SaO2% (BldA) [Mass fraction] 98 % Emilia Luca [employer] BOX FIXER.YARD WORKER Work Phone: [facility] 01-15-2024 13:33-0400 Systolic blood pressure 124 mm[Hg] Emilia Segovia [employer] BOX FIXER.YARD WORKER Work Phone: [facility] 12-07-2023 09:04-0400 Diastolic blood pressure 80 mm[Hg] Taylor Ramey MD Work Phone: [facility] 12-07-2023 09:04-0400 Heart rate 78 /min Taylor Ramey MD Work Phone: [facility] 12-07-2023 09:04-0400 Respiratory rate 16 /min Taylor Ramey MD Work Phone: [facility] 12-07-2023 09:04-0400 SaO2% (BldA) [Mass fraction] 95 % Taylor Ramey MD Work Phone: [facility] 12-07-2023 09:04-0400 Systolic blood pressure 181 mm[Hg] Taylor Ramey MD Work Phone: [facility] 12-07-2023 07:44-0400 Body mass index (BMI) [Ratio] 27.83 kg/m2 Taylor Ramey MD Work Phone: [facility] 12-07-2023 07:44-0400 Body temperature 97.9 [degF] Taylor Ramey MD Work Phone: [facility] 12-07-2023 07:44-0400 Body weight 80.6 kg Taylor Ramey MD Work Phone: [facility] 11-12-2023 11:02-0400 Body height 170.2 cm Taylor Ramey MD Work Phone: [facility] 11-12-2023 11:02-0400 Body mass index (BMI) [Ratio] 27.85 kg/m2 Taylor Ramey MD Work Phone: [facility] 11-12-2023 11:02-0400 Body temperature 96.91 [degF] Taylor Ramey MD Work Phone: [facility] 11-12-2023 11:02-0400 Body weight 80.65 kg Taylor Ramey MD Work Phone: [facility] 11-12-2023 11:02-0400 Diastolic blood pressure 84 mm[Hg] Taylor Ramey MD Work Phone: [facility] 11-12-2023 11:02-0400 Heart rate 89 /min Taylor Ramey MD Work Phone: [facility] 11-12-2023 11:02-0400 Respiratory rate 19 /min Taylor Ramey MD Work Phone: [facility] 11-12-2023 11:02-0400 SaO2% (BldA) [Mass fraction] 96 % Taylor Ramey MD Work Phone: [facility] 11-12-2023 11:02-0400 Systolic blood pressure 136 mm[Hg] Taylor Ramey MD Work Phone: [facility] 10-22-2023 14:52-0400 Body weight 79.29 kg Son Zambrano MD Work Phone: [facility] 10-22-2023 14:52-0400 Diastolic blood pressure 80 mm[Hg] Son Zambrano MD Work Phone: [facility] 10-22-2023 14:52-0400 Heart rate 82 /min Son Zambrano MD Work Phone: [facility] 10-22-2023 14:52-0400 Respiratory rate 16 /min Son Zambrano MD Work Phone: [facility] 10-22-2023 14:52-0400 Systolic blood pressure 160 mm[Hg] Son Zambrano MD Work Phone: [facility] 03-19-2023 13:00-0400 Diastolic blood pressure 60 mm[Hg] Son Zambrano MD Work Phone: [facility] 03-19-2023 13:00-0400 Systolic blood pressure 128 mm[Hg] Son Zambrano MD Work Phone: [facility] 03-19-2023 11:42-0400 Body temperature 96.91 [degF] Son Zambrano MD Work Phone: [facility] 03-19-2023 11:42-0400 Body weight 76.2 kg Son Zambrano MD Work Phone: [facility] 03-19-2023 11:42-0400 Heart rate 88 /min Son Zambrano MD Work Phone: [facility] 03-19-2023 11:42-0400 Respiratory rate 18 /min Son Zambrano MD Work Phone: [facility] 03-19-2023 11:42-0400 SaO2% (BldA) [Mass fraction] 96 % Son Zambrano MD Work Phone: [facility] 11-13-2022 11:29-0400 Diastolic blood pressure 72 mm[Hg] Jossy Caruso [employer] Work Phone: [facility] 11-13-2022 11:29-0400 Systolic blood pressure 138 mm[Hg] Jossy Caruso [employer]OX [employer]RY [employer] Work Phone: [facility] 11-13-2022 11:25-0400 Body weight 79.83 kg Jossy Caruso [employer] Work Phone: [facility] 11-13-2022 11:25-0400 Heart rate 69 /min Jossy Caruso [employer]RY [employer] Work Phone: [facility] 11-13-2022 11:25-0400 Respiratory rate 16 /min Jossy Caruso [employer] Work Phone: [facility] 11-13-2022 11:25-0400 SaO2% (BldA) [Mass fraction] 99 % Jossy Caruso [employer] Work Phone: [facility] 09-15-2022 13:39-0500 Body weight 78.47 kg Jossy Caruso [employer] Work Phone: [facility] 09-15-2022 13:39-0500 Diastolic blood pressure 80 mm[Hg] Jossy Caruso [employer] Work Phone: [facility] 09-15-2022 13:39-0500 Heart rate 72 /min Jossy Orourkes [employer] Work Phone: [facility] 09-15-2022 13:39-0500 Respiratory rate 16 /min Jossy Orourkes [employer] Work Phone: [facility] 09-15-2022 13:39-0500 Systolic blood pressure 138 mm[Hg] Jossy Orourkes [employer] Work Phone: [facility] 07-27-2022 13:24-0500 Diastolic blood pressure 71 mm[Hg] Joceruss Zelayago [facility] Work Phone: [facility] 07-27-2022 13:24-0500 Heart rate 80 /min Joce Zelayago [facility] Work Phone: [facility] 07-27-2022 13:24-0500 Systolic blood pressure 131 mm[Hg] Joce Zelayago [facility] Work Phone: [facility] 07-14-2022 11:07-0500 Diastolic blood pressure 78 mm[Hg] Son Zambrano MD Work Phone: [facility] 07-14-2022 11:07-0500 Systolic blood pressure 136 mm[Hg] Son Zambrano MD Work Phone: [facility] 07-14-2022 10:45-0500 Body weight 76.66 kg Son Zambrano MD Work Phone: [facility] 07-14-2022 10:45-0500 Heart rate 76 /min Son Zambrano MD Work Phone: [facility] 07-14-2022 10:45-0500 SaO2% (BldA) [Mass fraction] 97 % Son Zambrano MD Work Phone: [facility] 07-03-2022 23:00-0500 Diastolic blood pressure 64 mm[Hg] [facility] Work Phone: 07-03-2022 23:00-0500 Heart rate 73 /min [facility] Work Phone: 07-03-2022 23:00-0500 Respiratory rate 21 /min [facility] Work Phone: 07-03-2022 23:00-0500 SaO2% (BldA) [Mass fraction] 94 % [facility] Work Phone: 07-03-2022 23:00-0500 Systolic blood pressure 152 mm[Hg] [facility] Work Phone: 07-03-2022 19:02-0500 Body height 170.18 cm [facility] Work Phone: 07-03-2022 19:02-0500 Body mass index (BMI) [Ratio] 25 kg/m2 [facility] Work Phone: 07-03-2022 19:02-0500 Body temperature 97.3 [degF] [facility] Work Phone: 07-03-2022 19:02-0500 Body weight 72.57 kg [facility] Work Phone: 07-03-2022 18:25-0500 Body temperature 96.8 [degF] Maria Guadalupe Moon APRN.YARD WORKER Work Phone: [facility] 07-03-2022 18:25-0500 Body weight 75.3 kg Maria Guadalupe Moon APRN.YARD WORKER Work Phone: [facility] 07-03-2022 18:25-0500 Diastolic blood pressure 94 mm[Hg] Maria Guadalupe Moon APRN.YARD WORKER Work Phone: [facility] 07-03-2022 18:25-0500 Heart rate 72 /min Maria Guadalupe Moon APRN.YARD WORKER Work Phone: [facility] 07-03-2022 18:25-0500 Respiratory rate 16 /min Maria Guadalupe Moon APRN.YARD WORKER Work Phone: [facility] 07-03-2022 18:25-0500 SaO2% (BldA) [Mass fraction] 97 % Maria Guadalupe Mono G[employer] BOX [employer]ER.YARD WORKER Work Phone: [facility] 07-03-2022 18:25-0500 Systolic blood pressure 162 mm[Hg] Maria Guadalupe Moon G[employer] BOX [employer]ER.YARD WORKER Work Phone: [facility] 03-20-2022 11:53-0400 Diastolic blood pressure 72 mm[Hg] Keti Dubow [facility] Work Phone: [facility] 03-20-2022 11:53-0400 Heart rate 75 /min Keti Dubow [facility] Work Phone: [facility] 03-20-2022 11:53-0400 Systolic blood pressure 104 mm[Hg] Keti Dubow [facility] Work Phone: [facility] 03-07-2022 11:20-0400 Body weight 75.3 kg Jossy Caruso [employer] Work Phone: [facility] 03-07-2022 11:20-0400 Diastolic blood pressure 78 mm[Hg] Jossy Caruso [employer] Work Phone: [facility] 03-07-2022 11:20-0400 Heart rate 80 /min Jossy Caruso [employer] Work Phone: [facility] 03-07-2022 11:20-0400 Respiratory rate 16 /min Jossy Caruso [employer] Work Phone: [facility] 03-07-2022 11:20-0400 Systolic blood pressure 132 mm[Hg] Jossy Caruso [employer] Work Phone: [facility] 11-02-2021 11:38-0400 Diastolic blood pressure 70 mm[Hg] Son Zambrano MD Work Phone: [facility] 11-02-2021 11:38-0400 Systolic blood pressure 112 mm[Hg] Son Zambrano MD Work Phone: [facility] 11-02-2021 10:54-0400 Body weight 78.47 kg Son Zambrano MD Work Phone: [facility] 11-02-2021 10:54-0400 Heart rate 73 /min Son Zambrano MD Work Phone: [facility] 11-02-2021 10:54-0400 SaO2% (BldA) [Mass fraction] 97 % Son Zambrano MD Work Phone: [facility] 03-21-2017 08:03-0400 BMI (Body Mass Index) 28.38 kg/m2 [facility] Work Phone: 03-21-2017 08:03-0400 Body Temperature 97.8 [degF] [facility] Work Phone: 03-21-2017 08:03-0400 BP Diastolic 82 mm[Hg] [facility] Work Phone: 03-21-2017 08:03-0400 BP Systolic 134 mm[Hg] [facility] Work Phone: 03-21-2017 08:03-0400 Height 170.18 cm More High LPN [facility] Work Phone: 03-21-2017 08:03-0400 Pulse (Heart Rate) 59 /min [facility] Work Phone: 03-21-2017 08:03-0400 Respiratory Rate 20 /min [facility] Work Phone: 03-21-2017 08:03-0400 Weight 82.19 kg [facility] Work Phone: 10-25-2016 13:16-0400 BMI (Body Mass Index) 29.66 kg/m2 [facility] Work Phone: 10-25-2016 13:16-0400 Body Temperature 97.59 [degF] David Ruggeri [employer] WORKER [facility] Work Phone: 10-25-2016 13:16-0400 Body Temperature 97.6 [degF] [facility] Work Phone: 10-25-2016 13:16-0400 BP Diastolic 66 mm[Hg] [facility] Work Phone: 10-25-2016 13:16-0400 BP Diastolic 69 mm[Hg] David Mirza LPN [facility] Work Phone: 10-25-2016 13:16-0400 BP Systolic 124 mm[Hg] David Mirza LPN [facility] Work Phone: 10-25-2016 13:16-0400 BP Systolic 144 mm[Hg] David Mirza LPN [facility] Work Phone: 10-25-2016 13:16-0400 BSA (Body Surface Area) 1.98 m2 David Mirza LPN [facility] Work Phone: 10-25-2016 13:16-0400 Height 170.18 cm David Mirza LPN [facility] Work Phone: 10-25-2016 13:16-0400 Pulse (Heart Rate) 78 /min David Lan En docrinology Work Phone: 10-25-2016 13:16-0400 Pulse Oximetry 98 % David Mirza LPN [facility] Work Phone: 10-25-2016 13:16-0400 Respiratory Rate 16 /min David Lan Endo crinology Work Phone: 10-25-2016 13:16-0400 Weight 85.91 kg David Lan Endoc rinology Work Phone: Encounters Encounter Date Encounter Type Care Provider Facility Start: 03-25-2025 End: 03-25-2025 Nursing evaluation of patient and report Nurse Urol Erika Work Phone: [facility] Comment on above: Benign non-nodular p rostatic hyperplasia with lower urinary tract symptoms (Primary Dx) Start: 03-20-2025 End: 03-20-2025 ambulatory Bruce Lauren RN Work Phone: Retail Coordinator Management Start: 03-20-2025 End: 03-20-2025 Telephone encounter Prudencio Mckeon MD Work Phone: Urology Comment on above: Medication Problem Initial phone contac t for Transitional Care Management Start: 03-19-2025 End: 03-19-2025 Telephone encounter Tana Park MD Work Phone: [facility] Start: 03-18-2025 End: 03-19-2025 Evaluation and management of inpatient PRUDENCIO MIKE Facility:[facility] Start: 03-04-2025 End: 03-04-2025 Admission to establishment [facility] Pre Surgical Testing Start: 03-04-2025 End: 03-04-2025 Preprocedural examination done Pst 1 [facility] Work Phone: Start: 03-04-2025 End: 03-04-2025 ambulatory PRUDENCIO MCKEON Pre Surgical Testing Comment on above: Pre-op examination ( Primary Dx); Benign prostatic hyperplasia with weak urinary stream; Primary hypertension; Pure hypercholesterolemia; Type 2 diabetes mellitus with microalbuminuria, with long-term current use of insulin (HCC); Asthma, unspecified asthma severity, unspecified whether complicated, unspecified whether persistent ([facility]); Peripheral vertigo, unspecified laterality; Gastroesophageal reflux disease, unspecified whether esophagitis present Start: 03-04-2025 Encounter for other preprocedural examination PRUDENCIO MCKEON [facility] Start: 02-12-2025 End: 02-12-2025 Patient encounter procedure Jessica Ricks [facility] Work Phone: [facility] Comment on above: Type 2 diabetes leanna itus with microalbuminuria, with long-term current use of insulin (HCC) (Primary Dx) Start: 02-12-2025 End: 02-12-2025 ambulatory SON ZAMBRANO Facility:[facility] Start: 02-10-2025 End: 02-10-2025 ambulatory PRUDENCIO MCKEON Facility:[facility] Start: 02-10-2025 End: 02-10-2025 Patient encounter procedure Prudencio Mckeon MD Work Phone: [facility] Comment on above: Benign non-nodular p rostatic hyperplasia with lower urinary tract symptoms (Primary Dx); Elevated PSA Start: 02-06-2025 End: 02-06-2025 Telephone encounter Jessica Ricks [facility] Work Phone: [facility] Comment on above: Patient Update (Ozem pic Refills) Start: 01-13-2025 End: 03-15-2025 Follow-up encounter Jossy Caruso APRN.CAVALRY SCOUT Work Phone: Internal [facility] [place] Start: 01-05-2025 End: 01-05-2025 Office outpatient visit 25 minutes Prudencio Mckeon MD Work Phone: Urology Comment on above: Elevated PSA (Primar y Dx); Benign non-nodular prostatic hyperplasia with lower urinary tract symptoms; Screening for genitourinary condition; Erectile dysfunction, unspecified erectile dysfunction type Start: 01-05-2025 End: 01-05-2025 ambulatory MARCELLA GEE Facility:[facility] Start: 01-01-2025 End: 01-01-2025 Patient encounter procedure Jessicajenifer Ricks [facility] Work Phone: [facility] Comment on above: Type 2 diabetes leanna itus with microalbuminuria, with long-term current use of insulin (HCC) (Primary Dx) Start: 01-01-2025 End: 01-01-2025 ambulatory SON ZAMBRANO Facility:[facility] Start: 12-31-2024 End: 12-31-2024 Telephone encounter Son Zambrano MD Work Phone: Internal [facility] [place] Comment on above: Patient Update Start: 12-31-2024 End: 12-31-2024 [facility] Start: 12-31-2024 End: 12-31-2024 Patient encounter procedure Jud Albright APRN.YARD WORKER Work Phone: Family Medicine [place] Comment on above: Dizziness (Primary D x); Orthostatic hypotension Start: 12-30-2024 End: 12-30-2024 ambulatory JOSSY CARUSO Facility:[facility] Start: 12-26-2024 End: 12-26-2024 Telephone encounter Son Zambrano MD Work Phone: [facility] [place] Comment on above: Patient Question Start: 12-23-2024 End: 01-29-2025 Telephone encounter Son Zambrano MD Work Phone: [facility] [place] Comment on above: pt assistance rec'd from mike nordisk Start: 11-17-2024 End: 11-17-2024 ambulatory SON KENYA Facility:[facility] Start: 11-03-2024 End: 11-03-2024 ambulatory MARCELLA GEE Facility:[facility] Start: 11-03-2024 End: 11-03-2024 Patient encounter procedure Marcella Gee GILL BOX FIXER.YARD WORKER, DNP Work Phone: Urology Comment on above: BPH with obstruction /lower urinary tract symptoms (Primary Dx); Elevated PSA; Screening for genitourinary condition; Benign non-nodular prostatic hyperplasia with lower urinary tract symptoms Start: 10-22-2024 End: 10-23-2024 [facility] Start: 10-22-2024 End: 10-22-2024 Office outpatient visit 25 minutes Son Zambrano MD Work Phone: [facility] [place] Comment on above: Type 2 diabetes leanna itus with microalbuminuria, with long-term current use of insulin (HCC) (Primary Dx); Fatigue, unspecified type; Daytime sleepiness; Elevated alkaline phosphatase level; Pure hypercholesterolemia; Hypoglycemia; Primary hypertension; Vitamin D deficiency Start: 10-15-2024 End: 10-16-2024 Telephone encounter Son Zambrano MD Work Phone: [facility] [place] Comment on above: re'c novolg flex pen from mike nordisk Start: 10-03-2024 End: 12-03-2024 Follow-up encounter Jossy Caruso APRN.CAVALRY SCOUT Work Phone: Internal Medicine [place] Start: 10-03-2024 End: 10-03-2024 Telephone encounter Brandon Rios [facility] Comment on above: Forms (Patient Joel tance Program -//Mike Nordisk (Medication Change Forms)) Start: 10-02-2024 End: 10-02-2024 ambulatory SON KENYA Facility:[facility] Start: 10-02-2024 End: 10-02-2024 Patient encounter procedure Jessica Ricks [facility] Work Phone: [facility] Comment on above: Type 2 diabetes leanna itus with microalbuminuria, with long-term current use of insulin (HCC) (Primary Dx) Start: 09-29-2024 End: 09-29-2024 ambulatory [facility] Facility:[facility] Start: 09-19-2024 End: 09-22-2024 Telephone encounter Son Zambrano MD Work Phone: Internal [facility] [place] Comment on above: medicines and pen ne ddles rec'd from Mike nordisk Start: 09-12-2024 End: 09-12-2024 Telephone encounter Jessica Ricks [facility] Work Phone: [facility] Comment on above: Medication Problem ( Mike Nordisk Vouchers) Start: 07-03-2024 End: 07-03-2024 ambulatory [facility] Facility:[facility] Start: 07-03-2024 End: 07-03-2024 Patient encounter procedure Jessica Ricks [facility] Work Phone: [facility] Comment on above: Type 2 diabetes leanna itus with microalbuminuria, with long-term current use of insulin (HCC) (Primary Dx) Start: 07-03-2024 End: 07-03-2024 Telephone encounter Jessica Ricks [facility] Work Phone: [facility] Comment on above: Forms (Mike Nordisk Patient Assistance Program 2024 Renewal) Start: 06-26-2024 End: 06-26-2024 Telephone encounter Jessica Ricks [facility] Work Phone: [facility] Comment on above: Appointment Start: 06-23-2024 End: 06-23-2024 ambulatory SON ZAMBRANO Facility:[facility] Start: 06-23-2024 End: 06-23-2024 Office outpatient visit 25 minutes Jossy Caruso APRN.CAVALRY SCOUT Work Phone: Internal Medicine [place] Comment on above: Type 2 diabetes leanna itus with microalbuminuria, with long-term current use of insulin (HCC) (Primary Dx); Primary hypertension; Closed fracture of left hip requiring operative repair with routine healing, subsequent encounter; BPH with obstruction/lower urinary tract symptoms; Encounter for immunization Start: 06-20-2024 End: 06-20-2024 ambulatory JOSSY CARUSO Facility:[facility] Start: 06-12-2024 End: 06-12-2024 Telephone encounter Jessica Ricks [facility] Work Phone: [facility] Comment on above: Missed Appointment ( Pharmacist Visit Rescheduling) Start: 05-06-2024 End: 05-07-2024 Telephone encounter Marcella Gee APRN.YARD WORKER, DNP Work Phone: Urology Comment on above: Results - Mri Start: 04-25-2024 ambulatory MARCELLA GEE Facility:1 [id number] Start: 04-25-2024 End: 04-25-2024 Subsequent hospital visit by physician Mri [facility] Work Phone: [facility] Comment on above: Elevated PSA [R97.20 ] MRI contraindicated due to metal implant [Z53.09] Start: 04-15-2024 End: 04-16-2024 Telephone encounter Son Zambrano MD Work Phone: [facility] [place] Comment on above: pen needles from nov o nordisk Refill Request Start: 04-08-2024 End: 04-08-2024 Telephone encounter Son Zambrano MD Work Phone: [facility] [place] Comment on above: Patient assist meds Start: 04-01-2024 End: 04-01-2024 Telephone encounter Son Zambrano MD Work Phone: [facility] [place] Comment on above: Patient Assistance Start: 03-20-2024 End: 03-20-2024 Patient encounter procedure Jessica Josephsaskia [facility] Work Phone: [facility] Comment on above: Type 2 diabetes leanna itus with microalbuminuria, with long-term current use of insulin (HCC) (Primary Dx) Start: 03-06-2024 Telephone encounter Jessica Wilsonjesus [facility] Work Phone: [facility] Comment on above: Missed Appointment ( Pharmacist Visit Rescheduling) Start: 02-29-2024 End: 02-29-2024 ambulatory Son Zambrano Facility:[facility] Start: 02-21-2024 End: 02-21-2024 Office outpatient visit 15 minutes Jossy Caruso APRN.CAVALRY SCOUT Work Phone: Internal Medicine [place] Comment on above: Type 2 diabetes leanna itus with microalbuminuria, with long-term current use of insulin (HCC) (Primary Dx); Swelling of left foot; Closed fracture of left hip requiring operative repair with routine healing, subsequent encounter; BPH with obstruction/lower urinary tract symptoms; Encounter for screening examination for other mental health and behavioral disorders; Screening for depression; Encounter for screening for malignant neoplasm of prostate Start: 02-07-2024 Telephone encounter Jessica Arthurdavian [facility] Work Phone: [facility] Comment on above: Missed Appointment ( Pharmacy Visit Rescheduling) Start: 01-25-2024 Telephone encounter Son flynn MD Work Phone: Internal Medicine [place] Comment on above: Outpatient PT order sent to [facility] Start: 01-18-2024 Telephone encounter Son flynn MD Work Phone: [facility] [place] Comment on above: Patient Assistance Start: 01-15-2024 Telephone encounter Son flynn MD Work Phone: [facility] [place] Comment on above: Possible shingles Physical Therapy Alexey n of Care Start: 01-15-2024 End: 01-15-2024 Patient encounter procedure Emilia Segovia APRN.YARD WORKER Work Phone: Internal Medicine [place] Comment on above: Closed fracture of l eft hip requiring operative repair with routine healing, subsequent encounter (Primary Dx); Hospital discharge follow-up; Disseminated herpes zoster; Type 2 diabetes mellitus with microalbuminuria, with long-term current use of insulin (HCC); Primary hypertension Start: 01-11-2024 Refill Son ford MD Work Phone: [facility] [place] Start: 01-10-2024 Patient Outreach Son lynch MD Work Phone: Internal [facility] [place] Comment on above: Transition Of Care Start: 01-08-2024 Telephone encounter Son flynn MD Work Phone: Internal Medicine [place] Comment on above: Follow HH Orders Start: 12-28-2023 Telephone encounter Son flynn MD Work Phone: Internal [facility] [place] Comment on above: pt assistance meds r ec'd from noro nordisk Start: 12-24-2023 ambulatory Marcelina Semen Facility[facility] Start: 12-24-2023 End: 01-09-2024 [facility] management of [facility] Start: 12-22-2023 ambulatory Son Zambrano Facilit y:[facility] Start: 12-22-2023 End: 12-24-2023 Evaluation and management of inpatient Son Zambrano Facility:[facility] Start: 12-18-2023 Refill Son ford MD Work Phone: Internal [facility] Comment on above: error Orders Start: 12-13-2023 End: 12-13-2023 Patient encounter procedure Jessica Rambo [facility] Work Phone: [facility] Comment on above: Type 2 diabetes leanna itus with microalbuminuria, with long-term current use of insulin (HCC) (Primary Dx) Start: 12-07-2023 End: 12-07-2023 Subsequent hospital visit by physician Taylor Ramey MD Work Phone: Ambulatory Surgery Comment on above: Colon cancer screeni ng [Z12.11] Start: 11-12-2023 End: 05-27-2024 Telephone encounter Taylor Ramey MD Work Phone: General Surgery Comment on above: 12/07/2023 COLON [facility] Start: 11-12-2023 End: 11-12-2023 Patient encounter procedure Taylor Ramey MD Work Phone: General Surgery Comment on above: Colon cancer screeni ng Start: 11-06-2023 Telephone encounter Marcella morris GILL BOX FIXER.YARD WORKER, DNP Work Phone: Urology Comment on above: Results Start: 10-22-2023 End: 10-22-2023 Office outpatient visit 25 minutes Son Zambrano MD Work Phone: [facility] [place] Comment on above: Type 2 diabetes leanna itus with microalbuminuria, with long-term current use of insulin (HCC) (Primary Dx); Benign non-nodular prostatic hyperplasia with lower urinary tract symptoms; Chronic pain of right knee; Primary hypertension; Pure hypercholesterolemia; Colon cancer screening Start: 09-27-2023 Telephone encounter Son flynn MD Work Phone: Internal Medicine [place] Comment on above: Needs chart notes fa xed to [employer] for Fre[employer] ([employer]) Start: 09-20-2023 Telephone encounter Son flynn MD Work Phone: Internal Medicine [place] Comment on above: pt assistance medici francesca and needles from mike nordisk Start: 09-20-2023 End: 09-20-2023 Patient encounter procedure Jessica Ricks [facility] Work Phone: [facility] Comment on above: Type 2 diabetes leanna itus with microalbuminuria, with long-term current use of insulin (HCC) (Primary Dx) Start: 09-15-2023 Telephone encounter Son flynn MD Work Phone: [facility] [place] Comment on above: Script for Freestyle [employer] 2 Start: 08-29-2023 ambulatory Jessica Paneccasio [facility] Work Phone: [facility] Comment on above: Patient Assistance P mike (Ozempic 1mg/Tresiba Flextouch units-100/Novolog Flexpen units-100/) Start: 07-12-2023 Refill Son ford MD Work Phone: [facility] [place] Comment on above: Refill Request Start: 07-05-2023 End: 07-05-2023 Patient encounter procedure Jessica Ricks [facility] Work Phone: [facility] Comment on above: Type 2 diabetes leanna itus with microalbuminuria, with long-term current use of insulin (HCC) (Primary Dx) Start: 05-17-2023 Telephone encounter Jessica Ricks [facility] Work Phone: [facility] Comment on above: Forms (Patient Joel watts - Mike Nordisk 2023 Renewal) Start: 05-17-2023 End: 05-17-2023 Nursing evaluation of patient and report Mi Nurse Work Phone: [facility] [place] Comment on above: Encounter for immuni zation (Primary Dx); Need for influenza vaccination Start: 05-17-2023 End: 05-17-2023 Patient encounter procedure Jessica Wilsonkrunal [facility] Work Phone: [facility] Comment on above: Type 2 diabetes leanna itus with microalbuminuria, with long-term current use of insulin (HCC) (Primary Dx) Start: 05-15-2023 Telephone encounter Son flynn MD Work Phone: [facility] [place] Comment on above: 3 MEDICINES REC'D FR OM MIKE NORDISK Start: 04-27-2023 Telephone encounter Son flynn MD Work Phone: Internal Medicine [place] Comment on above: rec'd 5 boxes of pen needles Start: 03-19-2023 End: 03-19-2023 Office outpatient visit 25 minutes Son Zambrano MD Work Phone: Internal Medicine [place] Comment on above: Type 2 diabetes leanna itus with microalbuminuria, with long-term current use of insulin (HCC) (Primary Dx); Primary hypertension; Hypoglycemia Start: 03-12-2023 Telephone encounter Son flynn MD Work Phone: [facility] [place] Comment on above: Patient Question Start: 01-30-2023 Telephone encounter Son flynn MD Work Phone: Internal Medicine [place] Comment on above: pen claudeels rec'd fr om mike nordisk Start: 01-18-2023 Telephone encounter Son flynn MD Work Phone: Internal Medicine [place] Comment on above: pt assistance meds f rom mike nordisk Start: 01-08-2023 Refill Son ford MD Work Phone: [facility] [place] Comment on above: Refill Request Start: 12-05-2022 Telephone encounter Son flynn MD Work Phone: [facility] [place] Comment on above: OV notes x 6 months Start: 12-04-2022 Telephone encounter Son flynn MD Work Phone: Internal Medicine [place] Comment on above: Forms (From for refi lls from Mike nordisk) Start: 11-30-2022 End: 11-30-2022 Patient encounter procedure Joce Celaya [facility] Work Phone: [facility] Comment on above: Diabetes mellitus du e to underlying condition with microalbuminuria, with long-term current use of insulin (HCC) (Primary Dx) Start: 11-28-2022 Telephone encounter Son flynn MD Work Phone: [facility] [place] Comment on above: forms for refill via mike nordisk Start: 11-13-2022 End: 11-13-2022 Office outpatient visit 25 minutes Jossy Caruso APRN.CNS Work Phone: Internal Medicine [place] Comment on above: Type 2 diabetes leanna itus with microalbuminuria, with long-term current use of insulin (HCC) (Primary Dx); Encounter for immunization; Primary hypertension; Pure hypercholesterolemia; BPH with obstruction/lower urinary tract symptoms; Encounter for screening for malignant neoplasm of prostate ; Essential hypertension, benign Start: 10-31-2022 Refill Son ford MD Work Phone: [facility] [place] Comment on above: Refill Request Start: 10-27-2022 Telephone encounter Son flynn MD Work Phone: [facility] [place] Comment on above: rec'd pen needles fr om mike nordisk Start: 10-27-2022 End: 10-27-2022 Patient encounter procedure Andrew Foster MD Work Phone: Otolaryngology Comment on above: Impacted cerumen of both ears (Primary Dx); Hearing loss due to cerumen impaction, bilateral; Chronic eczematous otitis externa of right ear Start: 10-26-2022 End: 10-26-2022 Patient encounter procedure [facility] Work Phone: [facility] Comment on above: Diabetes mellitus du e to underlying condition with microalbuminuria, with long-term current use of insulin (HCC) (Primary Dx); Type 2 diabetes mellitus with microalbuminuria, with long-term current use of insulin (HCC) Start: 10-20-2022 Telephone encounter Son flynn MD Work Phone: [facility] [place] Comment on above: rec'd from Mike estelita isk Start: 09-15-2022 End: 09-15-2022 Office outpatient visit 15 minutes Jossy Caruso APRN.CAVALRY SCOUT Work Phone: Internal Medicine [place] Comment on above: Rash and nonspecific skin eruption (Primary Dx) Start: 09-14-2022 End: 09-14-2022 Patient encounter procedure [facility] Work Phone: [facility] Comment on above: Type 2 diabetes leanna itus with microalbuminuria, with long-term current use of insulin (HCC) (Primary Dx) Start: 09-07-2022 Telephone encounter Son flynn MD Work Phone: Internal Medicine [place] Comment on above: Letter (Approval fro m Mike Nordisk) Start: 08-07-2022 Telephone encounter Son flynn MD Work Phone: Internal Medicine [place] Comment on above: Problem with applica tion Start: 07-27-2022 End: 07-27-2022 Patient encounter procedure [facility] Work Phone: [facility] Comment on above: Type 2 diabetes leanna itus with microalbuminuria, with long-term current use of insulin (HCC) (Primary Dx) Start: 07-14-2022 End: 07-14-2022 Office outpatient visit 25 minutes Son Zambrano MD Work Phone: [facility] [place] Comment on above: Type 2 diabetes leanna itus with microalbuminuria, with long-term current use of insulin (HCC) (Primary Dx); Essential hypertension, benign; Pure hypercholesterolemia; Vertigo; Encounter for immunization Start: 07-07-2022 Telephone encounter Son flynn MD Work Phone: Internal Medicine [place] Comment on above: Medication Problem Start: 07-03-2022 End: 07-03-2022 [facility] Start: 07-03-2022 End: 07-03-2022 Patient encounter procedure Maria Guadalupe Moon APRN.[facility] Work Phone: [place] [facility] Comment on above: Dizziness (Primary D x) Start: 06-22-2022 Telephone encounter Joce hector [facility] Work Phone: [facility] Comment on above: Missed Appointment Start: 06-08-2022 Telephone encounter Joce hector [facility] Work Phone: [facility] Comment on above: Forms ([employer] PAP renewal for 2022 (Tresiba, Novolog, Ozempic)) Start: 05-01-2022 Telephone encounter Son flynn MD Work Phone: Internal Medicine [place] Comment on above: Opened In Error Start: 04-27-2022 End: 04-27-2022 Patient encounter procedure Joce Celaya [facility] Work Phone: [facility] Comment on above: Type 2 diabetes leanna itus with microalbuminuria, with long-term current use of insulin (HCC) (Primary Dx) Start: 04-11-2022 Telephone encounter Son flynn MD Work Phone: [facility] [place] Comment on above: Patient Assistance ( Received Novolog, Tresiba and Ozempic ) Start: 03-20-2022 End: 03-20-2022 Patient encounter procedure Ellis Hernandez [facility] Work Phone: [facility] Comment on above: Type 2 diabetes leanna itus with microalbuminuria, with long-term current use of insulin (HCC) (Primary Dx) Start: 03-13-2022 End: 03-13-2022 Patient encounter procedure Andrew Foster MD Work Phone: Otolaryngology Comment on above: 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 (Primary Dx) Start: 03-07-2022 End: 03-07-2022 Patient encounter procedure Jossy Caruso [facility] Work Phone: Internal Medicine [place] Comment on above: Encounter for immuni zation (Primary Dx); Essential hypertension, benign; Type 2 diabetes mellitus with microalbuminuria, with long-term current use of insulin (HCC) Start: 02-20-2022 End: 02-20-2022 Patient encounter procedure Andrew Foster MD Work Phone: Otolaryngology Comment on above: 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 (Primary Dx); Impacted cerumen of both ears Start: 02-15-2022 End: 02-15-2022 Patient encounter procedure Ellis Hernandez [facility] Work Phone: [facility] Comment on above: Type 2 diabetes leanna itus with microalbuminuria, with long-term current use of insulin (HCC) Start: 01-30-2022 Telephone encounter Ellis Hernandez [facility] Work Phone: [facility] Comment on above: Forms (Freestyle Sherly re sensors) rec'd 5 boxes of pen needles Hearing Loss Start: 01-16-2022 Telephone encounter Ellis Hernandez [facility] Work Phone: [facility] Comment on above: Patient Question (No vocare (Pen needles)) Start: 01-16-2022 End: 01-16-2022 Patient encounter procedure Ellis Hernandez [facility] Work Phone: [facility] Comment on above: Type 2 diabetes leanna itus with microalbuminuria, with long-term current use of insulin (HCC) (Primary Dx) Start: 01-10-2022 Telephone encounter Son flynn MD Work Phone: Internal [facility] [place] Comment on above: Patient Assistance Start: 01-04-2022 Telephone encounter Ellis Hernandez [facility] Work Phone: [facility] Comment on above: Patient Assistance ( Pen needles) Start: 12-05-2021 End: 12-05-2021 Patient encounter procedure Ellis Hernandez [facility] Work Phone: [facility] Comment on above: Type 2 diabetes leanna itus with microalbuminuria, with long-term current use of insulin (HCC) (Primary Dx) Start: 11-02-2021 End: 11-02-2021 Office outpatient visit 25 minutes Son Zambrano MD Work Phone: Internal Medicine [place] Comment on above: Type 2 diabetes leanna itus with microalbuminuria, with long-term current use of insulin (HCC) (Primary Dx); Essential hypertension, benign; Skin lesion of back Start: 10-13-2021 Telephone encounter Son flynn MD Work Phone: Internal Medicine [place] Comment on above: meds rec'd from mike nordisk Start: 11-01-2020 End: 11-01-2020 Subsequent hospital visit by physician Xr [facility] [place] Work Phone: Radiology Comment on above: Suspected 2019 novel coronavirus infection [Z20.822] Procedures Date Procedure Procedure Detail Performing Clinician Start: 03-25-2025 BLADDER SCAN Prudencio villela MD Work Phone: Start: 03-25-2025 VOIDING TRIAL PROTOCOL Prudencio Mckeon MD Work Phone: Start: 01-05-2025 Urnls dip stick/tabl et rgnt auto w/o microscopy Prudencio Mckeon MD Work Phone: Start: 11-03-2024 Urnls dip stick/tabl et rgnt auto w/o microscopy Marcella Gee GILL BOX FIXER.YARD WORKER, DNP Work Phone: Start: 04-25-2024 Radiologic examinati on eye detect foreign body [facility] Provider Start: 02-21-2024 Adult depression scr eening assessment Jossy Caruso GILL BOX FIXER.CAVALRY SCOUT Work Phone: Start: 12-07-2023 Gluc bld gluc mntr d ev cleared fda spec home use Taylor Ramey MD Work Phone: Start: 12-07-2023 Colonoscopy flx dx w /collj spec when pfrmd Taylor Ramey MD Work Phone: Start: 12-07-2023 Colonoscopy Taylor Ramey MD Work Phone: Start: 05-17-2023 INFLUENZA VACCINE, P RSV FREE, AGE 65+ YR, HIGH DOSE, QUADRIVALENT (FLUZONE HIGH-DOSE) Reji Silveira MD Work Phone: Start: 03-19-2023 Gluc bld gluc mntr d ev cleared fda spec home use Son Zambrano MD Work Phone: Start: 07-14-2022 INFLUENZA SEASONAL QUADRIVALENT HIGH DOSE AGE 65+ Son Zambrano MD Work Phone: Start: 07-03-2022 CT of head without contrast Start: 07-01-2021 Adult depression scr eening assessment Son Zambrano MD Work Phone: Start: 11-01-2020 Radiologic exam ches t 2 views Gianna Vee PA-C Work Phone: Start: 07-02-2017 Colonoscopy Son borges MD Work Phone: Start: 03-21-2017 End: 05-10-2017 *CMP Complete Metabolic Panel Mildred Siddiqui NP Work Phone: Start: 03-21-2017 End: 05-10-2017 Hemoglobin A1c/Hemoglobin.total in Blood Mildred Siddiqui BREAKING MACHINE OPERATOR Work Phone: Start: 10-25-2016 End: 10-25-2016 Dietary management education, guidance, and counseling Mildred Siddiqui NP Plan of Treatment Date Care Activity Detail Author Start: 12-06-2028 Screening for malignant neoplasm of colon [facility] Start: 02-23-2026 Annual PCP Team Chronic Disease Visit Annual PCP Team Chronic Disease Visit [facility] Start: 02-23-2026 Medicare Annual Wellness Visit Medicare Annual Wellness Visit [facility] Start: 12-31-2025 Annual PCP Team Chronic Disease Visit Annual PCP Team Chronic Disease Visit [facility] Start: 10-27-2025 Glaucoma screening Dilated Retinal Exam [facility] Start: 10-22-2025 Annual PCP Team Chronic Disease Visit Annual PCP Team Chronic Disease Visit [facility] Start: 10-22-2025 BP Controlled (<130/80) BP Controlled (<130/80) [facility] Start: 10-22-2025 Hepatitis B screening Urine Albumin:Creatinine Ratio [facility] Start: 07-07-2025 Glaucoma screening Dilated Retinal Exam [facility] Start: 07-07-2025 End: 07-07-2025 Patient encounter procedure 07/07/2025 11:15 AM EST Office Visit [facility] [address] [place] [address] Prudencio Mckeon MD [address] [place] [address] 3 MON S/P HOLEP, AUASS, UROFLOW, PVR- [facility] Comment on above: 3 MON S/P HOLEP, AUASS, UROFLOW, PVR- JF Start: 06-23-2025 BP Controlled (<130/80) BP Controlled (<130/80) [facility] Start: 06-23-2025 Covid-19 Vaccine () Covid-19 Vaccine () [facility] Comment on above: Postponed from 03/23/2024 (Declined at t his time) Start: 06-23-2025 End: 06-23-2025 Patient encounter procedure 06/23/2025 1:00 PM EST Office Visit [facility] [place] [address] [place] [address] Jossy Caruso APRN.CAVALRY SCOUT [address] [place] [address] 4 month follow up [facility] [place] Comment on above: 4 month follow up Start: 06-20-2025 Hepatitis B screening Urine Albumin:Creatinine Ratio [facility] Start: 06-20-2025 Hepatitis B surface antibody level LDL Cholesterol [facility] Start: 06-16-2025 End: 06-16-2025 Patient encounter procedure 06/16/2025 3:00 PM EST Office Visit [facility] [address] [place] [address] Prudencio Mckeon MD [address] [place] [address] 3 MON S/P HOLEP, AUASS, UROFLOW, PVR- JF [facility] Comment on above: 3 MON S/P HOLEP, AUASS, UROFLOW, PVR- JF Start: 06-05-2025 Glaucoma screening Dilated Retinal Exam [facility] Start: 04-16-2025 End: 04-16-2025 Patient encounter procedure 04/16/2025 1:30 PM EDT Office Visit [facility] [address] [place] [address] [facility] [address] [place], [place] [id number] Dm f/up; CGM interpret [facility] Comment on above: Dm f/up; CGM interpret Start: 04-01-2025 End: 07-01-2025 Hemoglobin A1c in Blood HEMOGLOBIN A1C Lab Routine Type 2 diabetes mellitus with microalbuminuria, with long-term current use of insulin (HCC) Expected: 04/01/2025, Expires: 07/01/2025 [facility] Work Phone: Comment on above: Expected: 04/01/2025, Expires: Start: 04-01-2025 Hemoglobin A1c measurement HbA1C [facility] Start: 04-01-2025 End: 04-01-2025 Admission to same day surgery center 04/01/2025 12:00 PM EDT - 04/01/2025 2:30 PM EDT Surgery [address] [address] Prudencio Mckeon MD [address] [place] [address] LASER ENUCLEATION PROSTATE WITH MORCELLATION [facility] Comment on above: LASER ENUCLEATION PROSTATE WITH MORCELLA TION Start: 04-01-2025 End: 04-01-2025 Laser enucleation prostate w/morcellation LASER ENUCLEATION PROSTATE WITH MORCELLATION Benign prostatic hyperplasia with weak urinary stream 04/01/2025 12:00 PM EDT [place] Start: 04-01-2025 Subsequent hospital visit by physician 04/01/2025 12:00 PM EDT Hospital Encounter [address] [address] Prudencio Mckeon MD [address] [place] [address] Benign prostatic hyperplasia with weak urinary stream [N40.1, R39.12] [facility] Comment on above: Benign prostatic hyperplasia with weak u rinary stream [N40.1, R39.12] Start: 03-25-2025 End: 03-25-2025 Nursing evaluation of patient and report [facility] Comment on above: cath removal void trial Start: 03-23-2025 Influenza vaccination Influenza Vaccine (#1) [facility] Start: 03-18-2025 End: 03-18-2025 ambulatory Pre Surgical Testing Comment on above: LASER ENUCLEATION PROSTATE WITH MORCELLA TION W/ DR MCKEON ON 04/01/2025 - JF BMP, CBC, U/A, URINE CULTURE Start: 03-18-2025 End: 03-18-2025 Admission to same day surgery center 03/18/2025 11:45 AM EDT - 03/18/2025 2:15 PM EDT Surgery [address] [address] Prudencio Mckeon MD [address] [place] [address] LASER ENUCLEATION PROSTATE WITH MORCELLATION [facility] Comment on above: LASER ENUCLEATION PROSTATE WITH MORCELLA TION Start: 03-18-2025 End: 03-18-2025 Laser enucleation prostate w/morcellation LASER ENUCLEATION PROSTATE WITH MORCELLATION Benign prostatic hyperplasia with weak urinary stream 03/18/2025 11:45 AM EDT [place] Start: 03-18-2025 Subsequent hospital visit by physician 03/18/2025 11:45 AM EDT Hospital Encounter [facility] [address] [place] [address] Prudencio Mckeon MD [address] [place] [address] Benign prostatic hyperplasia with weak urinary stream [N40.1, R39.12] [facility] Comment on above: Benign prostatic hyperplasia with weak u rinary stream [N40.1, R39.12] Start: 03-04-2025 End: 03-04-2025 ambulatory Pre Surgical Testing Comment on above: LASER ENUCLEATION PROSTATE WITH MORCELLA TION W/ DR MCKEON ON 04/01/2025 - JF BMP, CBC, U/A, URINE CULTURE Start: 02-23-2025 End: 02-23-2025 Patient encounter procedure [facility] [place] Comment on above: 4 month f/u Start: 02-20-2025 Anxiety Screening Anxiety Screening [facility] Start: 02-20-2025 BP Controlled (<130/80) BP Controlled (<130/80) [facility] Start: 02-20-2025 Depression Screening Depression Screening [facility] Start: 02-12-2025 End: 02-12-2025 Patient encounter procedure [facility] Comment on above: Dm f/up; CGM interpret Dm f/up; CGM interpr et. review new ozempic refill process Start: 02-10-2025 End: 02-10-2025 Patient encounter procedure 02/10/2025 1:30 PM EDT Office Visit [facility] [address] [place] [address] Prudencio Mckeon MD [address] [place] [address] [facility] Comment on above: cysto Start: 01-20-2025 End: 06-22-2025 Comprehensive metabolic 2000 panel - Serum or Plasma COMPREHENSIVE METABOLIC PANEL Lab Routine Type 2 diabetes mellitus with microalbuminuria, with long-term current use of insulin (HCC) Expected: 01/20/2025 (Approximate), Expires: 06/22/2025 [facility] Work Phone: Comment on above: Expected: 01/20/2025 (Approximate), Expi res: 06/22/2025 Start: 01-20-2025 End: 06-22-2025 Hemoglobin A1c in Blood HEMOGLOBIN A1C Lab Routine Type 2 diabetes mellitus with microalbuminuria, with long-term current use of insulin (HCC) Expected: 01/20/2025 (Approximate), Expires: 06/22/2025 [facility] Comment on above: Expected: 01/20/2025 (Approximate), Expi res: 06/22/2025 Start: 01-14-2025 Annual PCP Team Chronic Disease Visit Annual PCP Team Chronic Disease Visit [facility] Start: 01-14-2025 BP Controlled (<130/80) BP Controlled (<130/80) [facility] in Start: 01-13-2025 Glaucoma screening Dilated Retinal Exam [facility] Start: 01-05-2025 End: 01-05-2025 Patient encounter procedure Urology Comment on above: 69y/o male with 93cc prostate. Had eleva maribell PSA, MRI was negative. Interested in MIST - BPH surgical intervention. Please eval 69y/o male with 93cc prostate. Had elevated PSA, MRI was negative. Interested in MIST - BPH surgical intervention. Please chava Gee (Moved time to add on stent removal) Start: 01-01-2025 End: 01-01-2025 Patient encounter procedure 01/01/2025 2:00 PM EDT Office Visit [facility] [address] [place] [address] Jessica Ricks, [facility] [address] [place] [address] Dm f/up; CGM interpret [facility] Comment on above: Dm f/up; CGM interpret Start: 11-20-2024 End: 02-19-2025 Prostate Specific Ag Free [Mass/volume] in Serum or Plasma PROSTATE SPECIFIC ANTIGEN, FREE AND TOTAL Lab Routine Elevated PSA Expected: 11/20/2024, Expires: 02/19/2025 [facility] Comment on above: Expected: 11/20/2024, Expires: Start: 11-04-2024 Glaucoma screening Dilated Retinal Exam [facility] Start: 11-03-2024 End: 11-03-2024 Patient encounter procedure 11/03/2024 9:30 AM EDT Office Visit Urology [address] [place] [address] Marcella Gee APRN.YARD WORKER, DNP [address] [place] [address] 3mth follow up Urology Comment on above: 3mth follow up Start: 10-22-2024 End: 01-21-2025 25-hydroxyvitamin D3 [Mass/volume] in Serum or Plasma [facility] Comment on above: Expected: 10/22/2024, Expires: Start: 10-22-2024 End: 01-21-2025 ALK PHOS ISOENZYM BL [facility] Comment on above: Expected: 10/22/2024, Expires: Start: 10-22-2024 End: 01-21-2025 CBC W Auto Differential panel - Blood [facility] Comment on above: Expected: 10/22/2024, Expires: Start: 10-22-2024 End: 01-21-2025 Comprehensive metabolic 2000 panel - Serum or Plasma [facility] Work Phone: Comment on above: Expected: 10/22/2024, Expires: Start: 10-22-2024 End: 01-21-2025 Magnesium [Mass/volume] in Serum or Plasma [facility] Comment on above: Expected: 10/22/2024, Expires: Start: 10-22-2024 End: 01-21-2025 Microalbumin/Creatinine [Mass Ratio] in Urine [facility] Comment on above: Expected: 10/22/2024, Expires: Start: 10-22-2024 End: 10-22-2024 Patient encounter procedure 10/22/2024 2:00 PM EDT Office Visit [facility] [place] [address] [facility] [place], [place] [id number] Son Zambrano MD [address] [place] [address] 4 mo follow up [facility] [place] Comment on above: 4 mo follow up Start: 10-22-2024 End: 01-21-2025 Thyrotropin [Units/volume] in Serum or Plasma [facility] Comment on above: Expected: 10/22/2024, Expires: Start: 10-22-2024 End: 01-21-2025 Thyroxine (T4) free [Mass/volume] in Serum or Plasma [facility] Comment on above: Expected: 10/22/2024, Expires: Start: 10-22-2024 End: 01-21-2025 Triiodothyronine (T3) Free [Mass/volume] in Serum or Plasma [facility] Comment on above: Expected: 10/22/2024, Expires: Start: 10-21-2024 Annual PCP Team Chronic Disease Visit Annual PCP Team Chronic Disease Visit [facility] Start: 10-21-2024 Diabetic foot examination Diabetic Foot Exam [facility] Start: 10-02-2024 End: 10-02-2024 Patient encounter procedure 10/02/2024 2:00 PM EDT Office Visit [facility] [address] [place] [address] Jessica Ricks, [facility] [address] [place] [address] Dm f/up; CGM interpret [facility] Comment on above: Dm f/up; CGM interpret Start: 09-23-2024 Glaucoma screening Dilated Retinal Exam [facility] Start: 09-21-2024 End: 12-21-2024 Hemoglobin A1c in Blood HEMOGLOBIN A1C Lab Routine Type 2 diabetes mellitus with microalbuminuria, with long-term current use of insulin (HCC) Expected: 09/21/2024 (Approximate), Expires: 12/21/2024 [facility] Comment on above: Expected: 09/21/2024 (Approximate), Expi res: 12/21/2024 Start: 09-19-2024 Hemoglobin A1c measurement HbA1C [facility] Start: 08-18-2024 End: 08-18-2024 Patient encounter procedure 08/18/2024 11:30 AM EST Office Visit Urology [address] [place] [address] Marcella Gee APRN.YARD WORKER, DNP [address] [place] [address] 3mth follow up Urology Comment on above: 3mth follow up Start: 08-10-2024 Annual PCP Team Chronic Disease Visit Annual PCP Team Chronic Disease Visit [facility] Start: 08-10-2024 BP Controlled (<130/80) BP Controlled (<130/80) [facility] Start: 08-10-2024 Covid-19 Vaccine ( season) Covid-19 Vaccine ( season) [facility] Comment on above: Postponed from 03/23/2023 (Declined at t his time) Start: 08-10-2024 RSV Vaccine (1 - 1-dose 60+ series) RSV Vaccine (1 - 1-dose 60+ series) [facility] Comment on above: Postponed from 2013 (Declined at t his time) Start: 08-10-2024 RSV Vaccine (1 - Risk 60-74 years 1-dose series) RSV Vaccine (1 - Risk 60-74 years 1-dose series) [facility] Comment on above: Postponed from 2013 (Declined at t his time) Start: 08-10-2024 Shingrix Vaccine (1 of 2) Shingrix Vaccine (1 of 2) [facility] Comment on above: Postponed from 2003 (Declined at t his time) Start: 08-10-2024 Urine microalbumin profile DTaP,Tdap,Td Vaccine (2 - Td or Tdap) [facility] Comment on above: Postponed from 04/01/2022 (Declined at t his time) Start: 07-23-2024 Advance Directive Discussion Advance Directive Discussion [facility] Start: 07-22-2024 Behavioral Health Screening Behavioral Health Screening [facility] Comment on above: Postponed from 07/23/2023 (Postponed To Appropriate Date) Start: 07-22-2024 Depression Assessment Depression Assessment [facility] Comment on above: Postponed from 07/23/2023 (Postponed To Appropriate Date) Start: 07-14-2024 Hepatitis B screening Urine Albumin:Creatinine Ratio [facility] Start: 07-14-2024 Hepatitis B surface antibody level LDL Cholesterol [facility] Start: 07-07-2024 PROSTATE CANCER SCREENING DISCUSSION PROSTATE CANCER SCREENING DISCUSSION [facility] Start: 07-03-2024 End: 07-03-2024 Patient encounter procedure 07/03/2024 2:00 PM EST Office Visit [facility] [address] [place] [address] [facility] [address] [place] [address] [facility] Comment on above: PAP renewal forms Start: 06-26-2024 End: 06-26-2024 Patient encounter procedure 06/26/2024 11:30 AM EST [facility] Visit [facility] [address] [place] [address] Jessica RicksKathryn [place] [address] [place] [address] Dm f/up; CGM interpret [facility] Comment on above: Dm f/up; CGM interpret Start: 06-24-2024 Hemoglobin A1c measurement HbA1C [facility] Start: 06-23-2024 End: 06-23-2024 Patient encounter procedure 06/23/2024 1:00 PM EST Office Visit [facility] [place] [address] [place] [address] Jossy Caruso APRN.CAVALRY SCOUT [address] [place] [address] 4 mo follow up [facility] [place] Comment on above: 4 mo follow up Start: 06-12-2024 End: 06-12-2024 Patient encounter procedure 06/12/2024 1:00 PM EST Office Visit [facility] [address] [place], [place] [address] PanJessica marcelo, [facility] [address] [place] [address] Dm f/up; CGM interpret [facility] Comment on above: Dm f/up; CGM interpret Start: 05-23-2024 End: 01-23-2025 Comprehensive metabolic 2000 panel - Serum or Plasma COMPREHENSIVE METABOLIC PANEL Lab Routine Type 2 diabetes mellitus with microalbuminuria, with long-term current use of insulin (HCC) BPH with obstruction/lower urinary tract symptoms Expected: 05/23/2024 (Approximate), Expires: 01/23/2025 [facility] Work Phone: Comment on above: Expected: 05/23/2024 (Approximate), Expi res: 01/23/2025 Start: 05-23-2024 End: 01-23-2025 Hemoglobin A1c in Blood HEMOGLOBIN A1C Lab Routine Type 2 diabetes mellitus with microalbuminuria, with long-term current use of insulin (HCC) Expected: 05/23/2024 (Approximate), Expires: 01/23/2025 [facility] Comment on above: Expected: 05/23/2024 (Approximate), Expi res: 01/23/2025 Start: 05-23-2024 End: 01-23-2025 Lipid 1996 panel - Serum or Plasma LIPID PANEL BASIC Lab Routine Type 2 diabetes mellitus with microalbuminuria, with long-term current use of insulin (HCC) Expected: 05/23/2024 (Approximate), Expires: 01/23/2025 [facility] Comment on above: Expected: 05/23/2024 (Approximate), Expi res: 01/23/2025 Start: 05-23-2024 End: 01-23-2025 Microalbumin/Creatinine [Mass Ratio] in Urine ALBUMIN/CREATININE RATIO, URINE Lab Routine Type 2 diabetes mellitus with microalbuminuria, with long-term current use of insulin (HCC) Expected: 05/23/2024 (Approximate), Expires: 01/23/2025 [facility] Comment on above: Expected: 05/23/2024 (Approximate), Expi res: 01/23/2025 Start: 05-23-2024 End: 01-23-2025 PSA/PROSTATE SPECIFIC ANTIGEN SCREENING PSA/PROSTATE SPECIFIC ANTIGEN SCREENING Lab Routine BPH with obstruction/lower urinary tract symptoms Encounter for screening for malignant neoplasm of prostate Expected: 05/23/2024 (Approximate), Expires: 01/23/2025 [facility] Comment on above: Expected: 05/23/2024 (Approximate), Expi res: 01/23/2025 Start: 05-04-2024 Hemoglobin A1c measurement HbA1C [facility] Start: 04-25-2024 End: 04-25-2024 Patient encounter procedure 04/25/2024 11:00 AM EDT Appointment [facility] [address] [place] [address] EPIC ORDEWR [facility] Comment on above: EPIC ORDEW Start: 03-23-2024 Covid-19 Vaccine ( season) Covid-19 Vaccine ( season) [facility] Start: 03-23-2024 Covid-19 Vaccine () Covid-19 Vaccine () [facility] Start: 03-23-2024 Influenza vaccination Influenza Vaccine (#1) [facility] Start: 03-20-2024 End: 03-20-2024 Patient encounter procedure 03/20/2024 9:30 AM EDT Office Visit [facility] [address] [place] [address] Jessica Ricks, [facility] [address] [place] [address] Dm f/up; CGM interpret [facility] Comment on above: Dm f/up; CGM interpret Start: 03-19-2024 ANNUAL PCP TEAM CHRONIC DISEASE VISIT ANNUAL PCP TEAM CHRONIC DISEASE VISIT [facility] Start: 03-19-2024 BP CONTROLLED (<130/80) BP CONTROLLED (<130/80) [facility] Start: 03-14-2024 End: 03-14-2024 Patient encounter procedure 03/14/2024 10:30 AM EDT Appointment [facility] [address] [place] [address] with 3D post processing [facility] Comment on above: with 3D post processing Start: 03-06-2024 End: 03-06-2024 Patient encounter procedure 03/06/2024 2:30 PM EDT Office Visit [facility] [address] [place] [address] [facility] [address], [place] [id number] Dm f/up; CGM interpret [facility] Comment on above: Dm f/up; CGM interpret Start: 02-21-2024 End: 02-21-2024 Patient encounter procedure 02/21/2024 1:00 PM EDT Office Visit [facility] [place] [address] [place] [address] Jossy Caruso APRN.CAVALRY SCOUT [address] [place] [address] 4 mo follow up [facility] [place] Comment on above: 4 mo follow up Start: 02-07-2024 End: 02-07-2024 Patient encounter procedure 02/07/2024 10:30 AM EDT Office Visit [facility] [address] [place] [address] [facility] [address] [place] [address] Dm f/up; CGM interpret [facility] Comment on above: Dm f/up; CGM interpret Start: 01-18-2024 End: 01-18-2024 Patient encounter procedure [facility] [place] Comment on above: [facility] Hosp follow up D/C 01/08 hip fracture Left TCM, [facility] Hosp follow up D/C 01/08 hip fracture Left Start: 01-13-2024 Hemoglobin A1c measurement HbA1C [facility] Start: 12-26-2023 End: 12-26-2023 Patient encounter procedure 12/26/2023 2:15 PM EDT Appointment [facility] [address] [place] [address] Elevated PSA [R97.20] [facility] Comment on above: Elevated PSA [R97.20] Start: 12-13-2023 End: 12-13-2023 Patient encounter procedure 12/13/2023 10:30 AM EDT Office Visit [facility] [address] [facility] [place] [address] Maximinoberekrunal Jessica, [facility] [address] [place] [address] Dm f/up; CGM interpret [facility] Comment on above: Dm f/up; CGM interpret Start: 12-07-2023 End: 12-07-2023 Patient encounter procedure 12/07/2023 12:45 PM EDT Appointment Ambulatory Surgery [address] [place], [place] [id number] Taylor [place] MD [address] [place] [id number] Ambulatory Surgery Start: 11-14-2023 BP CONTROLLED (<130/80) BP CONTROLLED (<130/80) [facility] Start: 11-07-2023 Hepatitis B screening URINE ALBUMIN:CREATININE RATIO [facility] Start: 08-08-2023 Glaucoma screening Dilated Retinal Exam [facility] Start: 08-08-2023 Hepatitis C antibody, confirmatory test DILATED RETINAL EXAM [facility] Start: 07-23-2023 Advance Directive Discussion Advance Directive Discussion [facility] Start: 07-14-2023 3 comp foot exam completed DIABETIC FOOT EXAM [facility] Start: 07-14-2023 ANNUAL PCP TEAM CHRONIC DISEASE VISIT ANNUAL PCP TEAM CHRONIC DISEASE VISIT [facility] Start: 07-14-2023 COLORECTAL CANCER SCREENING COLORECTAL CANCER SCREENING [facility] Comment on above: Postponed from 1998 (Declined at t his time) Start: 07-14-2023 Diabetic foot examination Diabetic Foot Exam [facility] Start: 07-14-2023 Screening for malignant neoplasm of colon Colorectal Cancer Screening [facility] Comment on above: Postponed from 1998 (Declined at t his time) Start: 07-14-2023 SHINGRIX VACCINE (1 of 2) SHINGRIX VACCINE (1 of 2) [facility] Comment on above: Postponed from 2003 (Declined at t his time) Start: 07-14-2023 Urine microalbumin profile [facility] Comment on above: Postponed from 04/01/2022 (Declined at t his time) Start: 07-10-2023 Hepatitis B surface antibody level LDL CHOLESTEROL [facility] Start: 05-08-2023 Hemoglobin A1c measurement HbA1C [facility] Start: 05-08-2023 Hemoglobin A1c/Hemoglobin.total in Blood HBA1C [facility] Start: 05-04-2023 End: 10-26-2023 ALBUMIN/CREAT RATIO RND UR ALBUMIN/CREAT RATIO RND UR Lab Routine Type 2 diabetes mellitus with microalbuminuria, with long-term current use of insulin (HCC) Expected: 05/04/2023 (Approximate), Expires: 10/26/2023 [facility] Work Phone: Comment on above: Expected: 05/04/2023 (Approximate), Expi res: 10/26/2023 Start: 05-04-2023 End: 10-26-2023 CBC W Auto Differential panel - Blood CBC + DIFF Lab Routine Type 2 diabetes mellitus with microalbuminuria, with long-term current use of insulin (HCC) Primary hypertension Expected: 05/04/2023 (Approximate), Expires: 10/26/2023 [facility] Work Phone: Comment on above: Expected: 05/04/2023 (Approximate), Expi res: 10/26/2023 Start: 05-04-2023 End: 10-26-2023 Comprehensive metabolic 2000 panel - Serum or Plasma COMP METABOLIC PANEL Lab Routine Type 2 diabetes mellitus with microalbuminuria, with long-term current use of insulin (HCC) Primary hypertension Expected: 05/04/2023 (Approximate), Expires: 10/26/2023 [facility] Work Phone: Comment on above: Expected: 05/04/2023 (Approximate), Expi res: 10/26/2023 Start: 05-04-2023 End: 10-26-2023 Hemoglobin A1c in Blood HGB A1C Lab Routine Type 2 diabetes mellitus with microalbuminuria, with long-term current use of insulin (HCC) Expected: 05/04/2023 (Approximate), Expires: 10/26/2023 [facility] Work Phone: Comment on above: Expected: 05/04/2023 (Approximate), Expi res: 10/26/2023 Start: 05-04-2023 End: 10-26-2023 Lipid 1996 panel - Serum or Plasma LIPID PANEL BASIC Lab Routine Type 2 diabetes mellitus with microalbuminuria, with long-term current use of insulin (HCC) Pure hypercholesterolemia Expected: 05/04/2023 (Approximate), Expires: 10/26/2023 [facility] Work Phone: Comment on above: Expected: 05/04/2023 (Approximate), Expi res: 10/26/2023 Start: 05-04-2023 End: 10-26-2023 PSA/PROSTSPECAG SCRN PSA/PROSTSPECAG SCRN Lab Routine BPH with obstruction/lower urinary tract symptoms Encounter for screening for malignant neoplasm of prostate Expected: 05/04/2023 (Approximate), Expires: 10/26/2023 [facility] Work Phone: Comment on above: Expected: 05/04/2023 (Approximate), Expi res: 10/26/2023 Start: 03-23-2023 Covid-19 Vaccine ( season) Covid-19 Vaccine () [facility] Start: 03-23-2023 Influenza vaccination [facility] Start: 03-20-2023 BP CONTROLLED (<130/80) BP CONTROLLED (<130/80) [facility] Start: 02-06-2023 Hepatitis C antibody, confirmatory test DILATED RETINAL EXAM [facility] Start: 01-08-2023 Hemoglobin A1c/Hemoglobin.total in Blood HBA1C [facility] Start: 11-12-2022 End: 01-12-2023 ALBUMIN/CREAT RATIO RND UR ALBUMIN/CREAT RATIO RND UR Lab Routine Type 2 diabetes mellitus with microalbuminuria, with long-term current use of insulin (HCC) Expected: 11/12/2022 (Approximate), Expires: 01/12/2023 [facility] Work Phone: Comment on above: Expected: 11/12/2022 (Approximate), Expi res: 01/12/2023 Start: 11-12-2022 End: 01-12-2023 Comprehensive metabolic 2000 panel - Serum or Plasma COMP METABOLIC PANEL Lab Routine Type 2 diabetes mellitus with microalbuminuria, with long-term current use of insulin (HCC) Essential hypertension, benign Expected: 11/12/2022 (Approximate), Expires: 01/12/2023 [facility] Work Phone: Comment on above: Expected: 11/12/2022 (Approximate), Expi res: 01/12/2023 Start: 11-12-2022 End: 01-12-2023 Hemoglobin A1c in Blood HGB A1C Lab Routine Type 2 diabetes mellitus with microalbuminuria, with long-term current use of insulin (HCC) Expected: 11/12/2022 (Approximate), Expires: 01/12/2023 [facility] Work Phone: Comment on above: Expected: 11/12/2022 (Approximate), Expi res: 01/12/2023 Start: 11-02-2022 ANNUAL PCP TEAM CHRONIC DISEASE VISIT ANNUAL PCP TEAM CHRONIC DISEASE VISIT [facility] Start: 11-02-2022 BP CONTROLLED (<130/80) BP CONTROLLED (<130/80) [facility] Start: 10-26-2022 Hepatitis B screening URINE ALBUMIN:CREATININE RATIO [facility] Start: 10-26-2022 Hepatitis B surface antibody level LDL CHOLESTEROL [facility] Start: 09-03-2022 Hemoglobin A1c/Hemoglobin.total in Blood HBA1C [facility] Start: 08-15-2022 BP CONTROLLED (<130/80) BP CONTROLLED (<130/80) [facility] Start: 07-23-2022 ADVANCE DIRECTIVE DISCUSSION ADVANCE DIRECTIVE DISCUSSION [facility] Start: 07-23-2022 DEPRESSION ASSESSMENT DEPRESSION ASSESSMENT [facility] Start: 07-03-2022 [facility] Work Phone: Start: 07-02-2022 Colonoscopy COLONOSCOPY [facility] Start: 07-02-2022 COLORECTAL CANCER SCREENING COLORECTAL CANCER SCREENING [facility] Start: 07-02-2022 Screening for malignant neoplasm of colon [facility] Start: 07-01-2022 3 comp foot exam completed DIABETIC FOOT EXAM [facility] Start: 07-01-2022 Adult depression screening assessment DEPRESSION SCREENING [facility] Start: 07-01-2022 ANNUAL PCP TEAM CHRONIC DISEASE VISIT ANNUAL PCP TEAM CHRONIC DISEASE VISIT [facility] Start: 07-01-2022 SHINGRIX VACCINE (1 of 2) SHINGRIX VACCINE (1 of 2) [facility] Comment on above: Postponed from 2003 (Declined at t his time) Start: 06-27-2022 Hepatitis B surface antibody level LDL CHOLESTEROL [facility] Start: 06-19-2022 End: 02-23-2023 Comprehensive metabolic 2000 panel - Serum or Plasma COMP METABOLIC PANEL Lab Routine Essential hypertension, benign Type 2 diabetes mellitus with microalbuminuria, with long-term current use of insulin (HCC) Expected: 06/19/2022 (Approximate), Expires: 02/23/2023 [facility] Work Phone: Comment on above: Expected: 06/19/2022 (Approximate), Expi res: 02/23/2023 Start: 06-19-2022 End: 02-23-2023 Hemoglobin A1c in Blood HGB A1C Lab Routine Type 2 diabetes mellitus with microalbuminuria, with long-term current use of insulin (HCC) Expected: 06/19/2022 (Approximate), Expires: 02/23/2023 [facility] Work Phone: Comment on above: Expected: 06/19/2022 (Approximate), Expi res: 02/23/2023 Start: 06-19-2022 End: 02-23-2023 Lipid 1996 panel - Serum or Plasma LIPID PANEL BASIC Lab Routine Type 2 diabetes mellitus with microalbuminuria, with long-term current use of insulin (HCC) Expected: 06/19/2022 (Approximate), Expires: 02/23/2023 [facility] Work Phone: Comment on above: Expected: 06/19/2022 (Approximate), Expi res: 02/23/2023 Start: 06-19-2022 End: 02-23-2023 PFIZER-BIONTECH COVID-19 VACCINE, AGE 12+ YR ([place] TOP) PFIZER-BIONTECH COVID-19 VACCINE, AGE 12+ YR (BYNUM TOP) Immunization/Injection Routine Encounter for immunization Expected: 06/19/2022 (Approximate), Expires: 02/23/2023 [facility] Work Phone: Comment on above: Expected: 06/19/2022 (Approximate), Expi res: 02/23/2023 Start: 05-03-2022 Hepatitis C antibody, confirmatory test DILATED RETINAL EXAM [facility] Start: 04-27-2022 Hemoglobin A1c/Hemoglobin.total in Blood HBA1C [facility] Start: 04-01-2022 Urine microalbumin profile [facility] Start: 03-23-2022 Influenza vaccination INFLUENZA (#1) [facility] Start: 03-04-2022 End: 05-04-2022 Comprehensive metabolic 2000 panel - Serum or Plasma COMP METABOLIC PANEL Lab Routine Type 2 diabetes mellitus with microalbuminuria, with long-term current use of insulin (HCC) Essential hypertension, benign Expected: 03/04/2022 (Approximate), Expires: 05/04/2022 [facility] Work Phone: Comment on above: Expected: 03/04/2022 (Approximate), Expi res: 05/04/2022 Start: 03-04-2022 End: 05-04-2022 Hemoglobin A1c/Hemoglobin.total in Blood HGB A1C Lab Routine Type 2 diabetes mellitus with microalbuminuria, with long-term current use of insulin (HCC) Expected: 03/04/2022 (Approximate), Expires: 05/04/2022 [facility] Work Phone: Comment on above: Expected: 03/04/2022 (Approximate), Expi res: 05/04/2022 Start: 12-26-2021 Hemoglobin A1c/Hemoglobin.total in Blood HBA1C [facility] Start: 11-01-2021 Hepatitis B screening URINE ALBUMIN:CREATININE RATIO [facility] Start: 08-31-2021 COVID-19 VACCINE (3 - Booster for Moderna series) COVID-19 VACCINE (3 - Booster for Moderna series) [facility] Start: 07-23-2021 ADVANCE DIRECTIVE DISCUSSION ADVANCE DIRECTIVE DISCUSSION [facility] Start: 07-23-2021 DEPRESSION ASSESSMENT DEPRESSION ASSESSMENT [facility] Start: 05-26-2021 COVID-19 VACCINE (3 - Booster for Moderna series) COVID-19 VACCINE (3 - Booster for Moderna series) [facility] Start: 05-26-2021 COVID-19 VACCINE (3 - Moderna series) COVID-19 VACCINE (3 - Moderna series) [facility] Start: 07-04-2017 End: 07-04-2017 Appointment [facility] Work Phone: Start: 03-21-2017 End: 05-10-2017 *CMP Complete Metabolic Panel *CMP Complete Metabolic Panel [facility] Work Phone: Start: 03-21-2017 End: 05-10-2017 Hemoglobin A1c/Hemoglobin.total mass fraction (Bld) *HgA1C [facility] Work Phone: Start: 03-21-2017 End: 03-21-2017 *CMP Complete Metabolic Panel *CMP Complete Metabolic Panel [facility] Work Phone: Start: 03-21-2017 End: 03-21-2017 HbA1c *HgA1C [facility] Work Phone: Start: 01-24-2017 End: 01-24-2017 Appointment Appointment [facility] Work Phone: Start: 10-25-2016 End: 10-27-2016 *CMP Complete Metabolic Panel *CMP Complete Metabolic Panel [facility] Work Phone: Start: 10-25-2016 End: 10-27-2016 *Microalbumin, Creatine Ratio, rand urine *Microalbumin, Creatine Ratio, rand urine [facility] Work Phone: Start: 10-25-2016 End: 10-27-2016 Hemoglobin A1c/Hemoglobin.total mass fraction (Bld) *HgA1C [facility] Work Phone: Start: 10-25-2016 End: 10-27-2016 *CMP Complete Metabolic Panel *CMP Complete Metabolic Panel [facility] Work Phone: Start: 10-25-2016 End: 10-27-2016 *Microalbumin, Creatine Ratio, rand urine *Microalbumin, Creatine Ratio, rand urine [facility] Work Phone: Start: 10-25-2016 End: 10-27-2016 HbA1c *HgA1C [facility] Work Phone: Start: 10-19-2016 End: 10-19-2016 Hemoglobin A1c/Hemoglobin.total mass fraction (Bld) *HgA1C [facility] Work Phone: Start: 10-19-2016 End: 10-19-2016 Lipid 1996 panel *Lipid Profile [facility] Work Phone: Start: 10-19-2016 End: 10-19-2016 HbA1c *HgA1C [facility] Work Phone: Start: 10-19-2016 End: 10-19-2016 Lipid panel [AGGREGATE] *Lipid Profile [facility] Work Phone: Start: 07-26-2016 End: 07-26-2016 *CMP Complete Metabolic Panel *CMP Complete Metabolic Panel [facility] Work Phone: Start: 07-26-2016 End: 07-26-2016 *Microalbumin, Creatine Ratio, rand urine *Microalbumin, Creatine Ratio, rand urine [facility] Work Phone: Start: 07-26-2016 End: 07-26-2016 Hemoglobin A1c/Hemoglobin.total mass fraction (Bld) *HgA1C [facility] Work Phone: Start: 07-26-2016 End: 07-26-2016 *CMP Complete Metabolic Panel *CMP Complete Metabolic Panel [facility] Work Phone: Start: 07-26-2016 End: 07-26-2016 *Microalbumin, Creatine Ratio, rand urine *Microalbumin, Creatine Ratio, rand urine [facility] Work Phone: Start: 07-26-2016 End: 07-26-2016 HbA1c *HgA1C [facility] Work Phone: Start: 2013 Hepatitis B Vaccine (1 of 3 - Risk 3-dose series) Hepatitis B Vaccine (1 of 3 - Risk 3-dose series) [facility] Start: 2013 RSV Vaccine (1 - 1-dose 60+ series) RSV Vaccine (1 - 1-dose 60+ series) [facility] Start: 2013 RSV Vaccine (1 - Risk 60-74 years 1-dose series) RSV Vaccine (1 - Risk 60-74 years 1-dose series) [facility] Start: 01-20-2009 Medicare Annual Wellness Visit Medicare Annual Wellness Visit [facility] Start: 2003 SHINGRIX VACCINE (1 of 2) SHINGRIX VACCINE (1 of 2) [facility] Start: 1998 COLOGUARD (FIT-DNA) COLOGUARD (FIT-DNA) [facility] Start: [address] COLONOGRAPHY [facility] Start: 1998 FECAL OCCULT BLOOD FECAL OCCULT BLOOD [facility] Start: 1998 Screening for malignant neoplasm of colon [facility] Start: 1998 SIGMOIDOSCOPY SIGMOIDOSCOPY [facility] Start: 1971 BP CONTROLLED (<130/80) BP CONTROLLED (<130/80) [facility] Bacteria identified in Urine by Culture Urine Culture [facility] Work Phone: BLADDER SCAN BLADDER SCAN Pro cedures Routine Benign non-nodular prostatic hyperplasia with lower urinary tract symptoms Elevated PSA Screening for genitourinary condition Ordered: 01/05/2025 [facility] Work Phone: Comment on above: Ordered: 01/05/2025 End: 10-21-2024 Comprehensive metabolic 2000 panel - Serum or Plasma COMP METABOLIC PANEL Lab Routine Type 2 diabetes mellitus with microalbuminuria, with long-term current use of insulin (HCC) Primary hypertension Every 6 months for 30 Occurrences starting 10/22/2023 until 10/21/2024 [facility] Work Phone: Comment on above: Every 6 months for 30 Occurrences starti ng 10/22/2023 until 10/21/2024 End: 10-21-2024 Hemoglobin A1c in Blood HGB A1C Lab Routine Type 2 diabetes mellitus with microalbuminuria, with long-term current use of insulin (HCC) Every 6 months for 30 Occurrences starting 10/22/2023 until 10/21/2024 [facility] Work Phone: Comment on above: Every 6 months for 30 Occurrences starti ng 10/22/2023 until 10/21/2024 MR Prostate WO and W contrast IV MRI PROSTATE WO/W IVCON Radiology Routine Elevated PSA Encounter for observation for other suspected diseases and conditions ruled out 04/25/2024 12:06 PM EDT [facility] Work Phone: MR Unspecified body region 3D post processing MRI 3D POST PROCESSING Radiology Routine Elevated PSA 04/25/2024 12:06 PM EDT [facility] Patient Education [facility] Work Phone: Patient referral [facility] Work Phone: PFIZER-BIONTECH COVID-19 BIVALENT VACCINE, AGE 12+ YR PFIZER-BIONTECH COVID-19 BIVALENT VACCINE, AGE 12+ YR Immunization/Injection Routine Encounter for immunization Ordered: 11/13/2022 [facility] Work Phone: Comment on above: Ordered: 11/13/2022 POST VOID RESIDUAL POST VOID RES IDUAL Procedures Routine Elevated PSA BPH with obstruction/lower urinary tract symptoms Screening for genitourinary condition Ordered: 11/03/2024 [facility] Work Phone: Comment on above: Ordered: 11/03/2024 End: 11-11-2024 Screening colonoscopy COLONOSCOPY SCREENING Endoscopy Routine Colon cancer screening 1 Occurrences starting 11/12/2023 until 11/11/2024 [facility] Work Phone: Comment on above: 1 Occurrences starting 11/12/2023 until 11/11/2024 [facility] Immunizations Immunization Date Immunization Notes Care Provider Dilshad grady 06-23-2024 influenza, high dose seasonal, preservative-free Jossy Caruso [employer] Work Phone: [facility] 06-23-2024 influenza virus vaccine, unspecified formulation Son Zambrano MD Work Phone: [facility] 05-17-2023 influenza (HD-IIV4) vaccine, age 65+ yr, high dose, quadrivalent, PF (FLUZONE HIGH-DOSE) Jessica Rambo [facility] Work Phone: [facility] 05-17-2023 influenza virus vaccine, unspecified formulation Son Zambrano MD Work Phone: [facility] 07-14-2022 influenza, high-dose , quadrivalent vaccine (FLUZONE HIGH DOSE QUADRIVALENT) Joce Celaya [facility] Work Phone: [facility] 07-14-2022 influenza virus vaccine, unspecified formulation Son Zambrano MD Work Phone: [facility] 07-01-2021 influenza, high-dose , quadrivalent vaccine (FLUZONE HIGH DOSE QUADRIVALENT) Son Zambrano MD Work Phone: [facility] 03-31-2021 COVID-19 original vaccine, full dose, monovalent (MODERNA) Jossy Caruso [employer] Work Phone: [facility] Work Phone: 03-03-2021 COVID-19 original vaccine, full dose, monovalent (MODERNA) Jossy Caruso [employer] Work Phone: [facility] Work Phone: 04-07-2020 influenza, high-dose , quadrivalent vaccine (FLUZONE HIGH DOSE QUADRIVALENT) Son Zambrano MD Work Phone: [facility] 04-07-2020 pneumococcal polysaccharide vaccine, 23 valent Son Zambrano MD Work Phone: [facility] 05-21-2019 influenza, high dose seasonal, preservative-free Son Zambrano MD Work Phone: [facility] Work Phone: 01-01-2019 pneumococcal conjuga te vaccine, 13 valent Son Zambrano MD Work Phone: [facility] 06-26-2018 influenza, injectabl e, quadrivalent, contains preservative Son Zambrano MD Work Phone: [facility] 05-07-2017 influenza, injectabl e, quadrivalent, contains preservative Son Zambrano MD Work Phone: [facility] 05-03-2016 influenza, injectabl e, quadrivalent, contains preservative Son Zambrano MD Work Phone: [facility] 04-30-2015 influenza, injectabl e, quadrivalent, contains preservative Son Zabmrano MD Work Phone: [facility] 05-29-2014 pneumococcal polysaccharide vaccine, 23 valent Son Zambrano MD Work Phone: [facility] 06-06-2013 influenza virus vaccine, unspecified formulation Son Zambrano MD Work Phone: [facility] 06-21-2012 influenza virus vaccine, unspecified formulation Son Zambrano MD Work Phone: [facility] 04-01-2012 pneumococcal polysaccharide vaccine, 23 valent Son Zambrano MD Work Phone: [facility] 04-01-2012 tetanus toxoid, redu derik diphtheria toxoid, and acellular pertussis vaccine, adsorbed Son Zambrano MD Work Phone: [facility] 05-23-2011 influenza virus vaccine, unspecified formulation Son Zambrano MD Work Phone: [facility] 06-16-2009 novel [id number], all formulations Son Zambrano MD Work Phone: [facility] Work Phone: 04-28-2009 influenza virus vaccine, unspecified formulation Son Zambrano MD Work Phone: [facility] Work Phone: NEGATED: Highlighted row has not occurred!11-13-2022 COVID-19 vaccine, age 12+ yr, bivalent (PFIZER-BIONTSummitIG) Jossy Caruso APRN.CNS Work Phone: [facility] Work Phone: Comment on above: Deferred: Postponed Payers Date Payer Category Payer Self-pay [id number] 2021 Private Health Insurance MMO MED ICARE SUPPLEMENT [id number] 2021 Unknown [id number] 2019 Unknown MMO MMO MEDICARE SUPPLEMENT [id number] 2019-Present [phone] [address] [place] [address] Indemnity [id number] 2019 Unknown [id number] 2009 Medicare MEDICARE MEDICAR E A AND B [id number] 2009-Present [phone] [address] [address] [place] [address] Medicare [id number] 2009 Medicare [id number] 2009 Medicare [id number] Private Health Insurance [id number] Unknown [id number] 462 Unknown [id number] 462 Unknown [id number]. 462 Unknown [id number]. 462 Unknown [id number]. 462 Unknown [id number]. 462 Unknown [id number]. 462 Unknown [id number]. 462 Unknown [id number]. 462 Unknown [id number]. 462 Unknown [id number]. 462 Unknown [id number]. 462 Unknown [id number]. 462 Unknown [id number]. 462 Unknown [id number] 462 Unknown [id number] 462 Social History Date Type Detail Facility Start: 01-18-2011 End: 03-07-2022 Tobacco smoking status NVIS Never smoked tobacco [facility] Work Phone: Start: 11-01-2020 End: 08-26-2021 Alcohol intake Current non-drinker of alcohol (finding) [facility] Start: 1955 Sex Assigned At Not on file [facility] Start: 10-02-2020 End: 03-13-2022 Exposure to SARS-CoV-2 (event) Not sure [facility] Start: 01-18-2011 End: 03-07-2022 Tobacco use and exposure Smokeless tobacco non-user [facility] Work Phone: Start: 07-03-2022 Tobacco smoking stat us NVIS Unknown if ever smoked [facility] Work Phone: Start: 10-06-2015 Spouse/ Signif icant Other [facility] Work Phone: Start: 1955 Sex Assigned At Male W [facility] Work Phone: Start: 11-13-2022 End: 11-30-2022 History of Social function [facility] Work Phone: Start: 11-13-2022 End: 11-30-2022 Tobacco use panel [facility] Work Phone: Start: 06-23-2012 Adult Depression Screening Assessment 0 [facility] Work Phone: Start: 09-17-2023 End: 03-25-2025 Alcohol intake Ex-drinker (finding) [facility] Medical Equipment Procedure Code Equipment Code Equipment Origin al Text Equipment Identifier Dates INSULIN SYRINGE-NEEDLE U-100 [id number], [id number], [id number] Start: 05-28-2008 End: 07-26-2016 Comment on above: Use as directed with insulin injections three times daily Use as directed. Blood Sugar Diagnostic (Relion Prime Test Strips) strip Start: 07-03-2017 Insulin Syringe-Needle U-100 (Bd Insulin Syringe Ult-Fine Ii) 0.5 mL 31 gauge x 5/16 syringe Start: 07-03-2017 Insulin syringes 0.3cc 31 G use as directed [id number] Start: 11-06-2005 End: 10-17-2021 Goals Date Patient Goal Desired Activity /State Personal health goal Functional Status Date Assessment Result Facility 02-03-2015 Are you deaf, or do you have serious difficulty hearing No 02/03/2015 7:53 AM EDT Pam Griffiths [facility] 02-03-2015 Are you blind, or do you have serious difficulty seeing, even when wearing glasses No 02/03/2015 7:53 AM EDT Pam Griffiths [facility] 02-03-2015 Do you have serious difficulty walking or climbing stairs No 02/03/2015 7:53 AM EDT Pam Griffiths [facility] 02-03-2015 Do you have difficul ty dressing or bathing No 02/03/2015 7:53 AM EDT Pam Griffiths [facility] 02-03-2015 Because of a physica l, mental, or emotional condition, do you have difficulty doing errands alone such as visiting a physician's office or shopping No 02/03/2015 7:53 AM EDT Pam Griffiths [facility] Mental Status Date Assessment Result Facility 02-03-2015 Because of a physica l, mental, or emotional condition, do you have serious difficulty concentrating, remembering, or making decisions No 02/03/2015 7:53 AM EDT Pam Griffiths [facility] Clinical Notes 11-17-2015 to 03-25-2025 Samara Bai RN - 03/25/2025 2:42 PM Jessie Gilbert RN - 03/25/2025 8:55 AM Bruce Bee RN - 03/20/2025 1:37 PM EDTTelephone Encounter - George Gill - 03/19/2025 2:13 PM EDT Note Date & Type Note Facility 03-25-2025 History of Present illness Narrative Patient presents today for a bladder scan after mallory removal this morning. Scan performed without difficulty. Residual urine amount is 5 ml. Patient reports he has been able to urinate several times without difficulty since mallory was removed this morning. Patient denies pain/ discomfort. Patient advised to contact office if he begins having any difficulty urinating and to go to ER if unable to urinate after office hours. Applications Support Engineer offered:Patient declines Samara Bai RN documented in this encounter [facility] 03-25-2025 History of Present illness Narrative Patient in today for voiding trial. 300 ml of sterile water instilled into bladder via mallory catheter prior to removal. Removed catheter without difficulty (18 F coude silicone). Patient able to void without difficulty. PVR 0 ml. Patient is scheduled to return at 2:30p today for PVR. Instructed to notify office if any s/s of infection or s/s of UTI. May experience some bleeding and or burning today because of catheter removal,. Verbalized understanding to all instructions. Applications Support Engineer offered: Patient declines Jessie Plunkett RN documented in this encounter [facility] 03-20-2025 Note HNO ID: [id number] Author: BRUCE LAUREN RN Service: ? Author Type: Registered Nurse Type: Progress Notes Filed: 03/20/2025 14:07 Note Text: Transition Care Management (TCM) Initial Outreach PCP Update / Actionable Items Navigation Team Update / Actionable Items Please assist patient with TCM follow up appt HRTIC TCM Home Visit Referral Source of Stratification: [facility] Hospital Admission Status: Discharged Readmission Risk Score: 12 Patient's zip code: [address] Is zip code within program service area: No Patient meets program referral criteria: No Patient does not qualify for High Risk TCM Home Visit program due to: Patient's zip code is not located within program service area Readmission Risk Score does not meet criteria Disposition: Patient does not qualify for HRTIC, will provide TCM outreach follow-up for 30-days Patient Source: In-Network Discharge Initial outreach: TCM discharge report Outreach Summary: Mallory draining without difficulty. Urine was a little orange this morning but is clearing up throughout the day. Was educated about mallory care prior to discharge and is becoming more comfortable with having it. It is uncomfortable but he denies pain.Complete medication review done. Pt has urology follow up on 03/25 for mallory removal. Reviewed concerning symptoms to report on page 3. Expressed appreciation for the call. Patient discharged from [facility] Discharge date: 03/19/25 Admitted for: Holmium laser enucleation of prostate (HoLEP) Readmission Risk: 12 Value-Based Contract: ACO Contact: Contact made with patient: Yes Hi, my name is Bruce Lauren RN and I am calling from the [facility] on behalf of your Primary Care Provider, Son Zambrano MD. I understand you were recently in the hospital, so I am calling to check in with you to ensure you are feeling well now that you are home. May I ask you a few questions related to your hospital stay and well-being? Yes Spoke to: Patient Validation: Validated the person spoken to is actively involved in the patient's care. The patient was identified by Name and Date of . Symptoms: Are you feeling about the same, better or worse since leaving the hospital? Better Medications: Do you have any questions about taking your medications, including which medications you should be on, or do you need refills on your medications? No Medication Review: Full medication review completed Discharge Instructions: Your Discharge Instructions / After Visit Summary (AVS) are important in guiding you through the recovery process. Do you have any questions related to your discharge instructions? No Home Care: Were you discharged with home care? No Equipment: Do you have all the necessary equipment and supplies needed at your home? Yes Social: Your mental health is as important to us as your physical health. Would you mind answering a few questions on this topic? Yes On the Storyboard review: Food Insecurity, Transportation, Depression, Housing, and Financial Strain: Complete any SDOHs, listed above, if not addressed in the past 3 months. If all SDOHs, listed above, have been addressed within the last 3 months, confirm responses and update any SDOHs that have changed. Action Taken: No needs verbalized. No action required. Follow-Up Appointment: [Appointment / TCM Follow-up within 14 days] I would like to help you schedule a hospital follow-up virtual or telephone visit with your PCP. This is a great way for you to connect with your provider to ensure you have safely transitioned home. If you are agreeable, I will send your request to a flight crew scheduler who will contact and assist you with that appointment. This will give you an opportunity to ask any questions or address any concerns you may have with your PCP. Inform the patient that if they have any questions or concerns prior to that appointment, to call their PCP's office right away. Appointment Action: Patient desires an appointment. Complete Navigation Team box and route to appropriate pool for scheduling. Education details: Patient and family educated on issues/questions related to reason for admission, transition of care topics, and follow-up needed upon discharge. Bruce Lauren RN March 20, 2025 1:58 PM [facility] 03-20-2025 History of Present illness Narrative Transition Care Management (TCM) Initial Outreach PCP Update / Actionable Items Navigation Team Update / Actionable Items Please assist patient with TCM follow up appt HRTIC TCM Home Visit Referral Source of Stratification: [facility] Hospital Admission Status: Discharged Readmission Risk Score: 12 Patient's zip code: [address] Is zip code within program service area: No Patient meets program referral criteria: No Patient does not qualify for High Risk TCM Home Visit program due to: Patient's zip code is not located within program service area Readmission Risk Score does not meet criteria Disposition: Patient does not qualify for HRTIC, will provide TCM outreach follow-up for 30-days Patient Source: In-Network Discharge Initial outreach: TCM discharge report Outreach Summary: Mallory draining without difficulty. Urine was a little orange this morning but is clearing up throughout the day. Was educated about mallory care prior to discharge and is becoming more comfortable with having it. It is uncomfortable but he denies pain.Complete medication review done. Pt has urology follow up on 03/25 for mallory removal. Reviewed concerning symptoms to report on page 3. Expressed appreciation for the call. Patient discharged from [facility] Discharge date: 03/19/25 Admitted for: Holmium laser enucleation of prostate (HoLEP) Readmission Risk: 12 Value-Based Contract: ACO Contact: Contact made with patient: Yes Hi, my name is Bruce Lauren RN and I am calling from the [facility] on behalf of your Primary Care Provider, Son Zambrano MD. I understand you were recently in the hospital, so I am calling to check in with you to ensure you are feeling well now that you are home. May I ask you a few questions related to your hospital stay and well-being? Yes Spoke to: Patient Validation: Validated the person spoken to is actively involved in the patient's care. The patient was identified by Name and Date of . Symptoms: Are you feeling about the same, better or worse since leaving the hospital? Better Medications: Do you have any questions about taking your medications, including which medications you should be on, or do you need refills on your medications? No Medication Review: Full medication review completed Discharge Instructions: Your Discharge Instructions / After Visit Summary (AVS) are important in guiding you through the recovery process. Do you have any questions related to your discharge instructions? No Home Care: Were you discharged with home care? No Equipment: Do you have all the necessary equipment and supplies needed at your home? Yes Social: Your mental health is as important to us as your physical health. Would you mind answering a few questions on this topic? Yes On the Storyboard review: Food Insecurity, Transportation, Depression, Housing, and Financial Strain: Complete any SDOHs, listed above, if not addressed in the past 3 months. If all SDOHs, listed above, have been addressed within the last 3 months, confirm responses and update any SDOHs that have changed. Action Taken: No needs verbalized. No action required. Follow-Up Appointment: [Appointment / TCM Follow-up within 14 days] I would like to help you schedule a hospital follow-up virtual or telephone visit with your PCP. This is a great way for you to connect with your provider to ensure you have safely transitioned home. If you are agreeable, I will send your request to a flight crew scheduler who will contact and assist you with that appointment. This will give you an opportunity to ask any questions or address any concerns you may have with your PCP. Inform the patient that if they have any questions or concerns prior to that appointment, to call their PCP's office right away. Appointment Action: Patient desires an appointment. Complete Navigation Team box and route to appropriate pool for scheduling. Education details: Patient and family educated on issues/questions related to reason for admission, transition of care topics, and follow-up needed upon discharge. Bruce Lauren RN March 20, 2025 1:58 PM documented in this encounter [facility] 03-20-2025 Telephone encounter Note Patient notified [facility] 03-20-2025 Miscellaneous Notes Patient notified Patient forgot to pick his prescriptions from the pharmacy before leaving the hospital after surgery with . He would like those prescriptions sent over to [facility] instead. Meds pending and pharmacy verified. documented in this encounter [facility] 03-20-2025 Telephone encounter Note Patient forgot to pick his prescriptions from the pharmacy before leaving the hospital after surgery with . He would like those prescriptions sent over to [facility] instead. Meds pending and pharmacy verified. [facility] 03-20-2025 Note Patient Outreach (AM [facility]) JING MCKEON ([id number]) 1955 M Date Time Provider Department 03/20/25 BRUCE LAURENG During your visit today, we recorded the following information about you: Bruce Lauren, RN 03/20/2025 2:07 PM Signed Transition Care Management (TCM) Initial Outreach PCP Update / Actionable Items Navigation Team Update / Actionable Items Please assist patient with TCM follow up appt HRTIC TCM Home Visit Referral Source of Stratification: [facility] Hospital Admission Status: Discharged Readmission Risk Score: 12 Patient's zip code: [address] Is zip code within program service area: No Patient meets program referral criteria: No Patient does not qualify for High Risk TCM Home Visit program due to: Patient's zip code is not located within program service area Readmission Risk Score does not meet criteria Disposition: Patient does not qualify for HRTIC, will provide TCM outreach follow-up for 30-days Patient Source: In-Network Discharge Initial outreach: TCM discharge report Outreach Summary: Mallory draining without difficulty. Urine was a little orange this morning but is clearing up throughout the day. Was educated about mallory care prior to discharge and is becoming more comfortable with having it. It is uncomfortable but he denies pain.Complete medication review done. Pt has urology follow up on 03/25 for mallory removal. Reviewed concerning symptoms to report on page 3. Expressed appreciation for the call. Patient discharged from [facility] Discharge date: 03/19/25 Admitted for: Holmium laser enucleation of prostate (HoLEP) Readmission Risk: 12 Value-Based Contract: ACO Contact: Contact made with patient: Yes Hi, my name is Bruce Lauren RN and I am calling from the [facility] on behalf of your Primary Care Provider, Son Zambrano MD. I understand you were recently in the hospital, so I am calling to check in with you to ensure you are feeling well now that you are home. May I ask you a few questions related to your hospital stay and well-being? Yes Spoke to: Patient Validation: Validated the person spoken to is actively involved in the patient's care. The patient was identified by Name and Date of . Symptoms: Are you feeling about the same, better or worse since leaving the hospital? Better Medications: Do you have any questions about taking your medications, including which medications you should be on, or do you need refills on your medications? No Medication Review: Full medication review completed Discharge Instructions: Your Discharge Instructions / After Visit Summary (AVS) are important in guiding you through the recovery process. Do you have any questions related to your discharge instructions? No Home Care: Were you discharged with home care? No Equipment: Do you have all the necessary equipment and supplies needed at your home? Yes Social: Your mental health is as important to us as your physical health. Would you mind answering a few questions on this topic? Yes On the Storyboard review: Food Insecurity, Transportation, Depression, Housing, and Financial Strain: Complete any SDOHs, listed above, if not addressed in the past 3 months. If all SDOHs, listed above, have been addressed within the last 3 months, confirm responses and update any SDOHs that have changed. Action Taken: No needs verbalized. No action required. Follow-Up Appointment: [Appointment / TCM Follow-up within 14 days] I would like to help you schedule a hospital follow-up virtual or telephone visit with your PCP. This is a great way for you to connect with your provider to ensure you have safely transitioned home. If you are agreeable, I will send your request to a flight crew scheduler who will contact and assist you with that appointment. This will give you an opportunity to ask any questions or address any concerns you may have with your PCP. Inform the patient that if they have any questions or concerns prior to that appointment, to call their PCP's office right away. Appointment Action: Patient desires an appointment. Complete Navigation Team box and route to appropriate pool for scheduling. Education details: Patient and family educated on issues/questions related to reason for admission, transition of care topics, and follow-up needed upon discharge. Bruce Lauren RN March 20, 2025 1:58 PM Allergies As of Date: 03/20/2025 (No Known Allergies) Date Reviewed: 03/18/2025 Reviewed by: Adalid Powell RN - Fully Assessed Prescriptions as of 03/20/2025 - polyethylene glycol 3350 (MIRALAX) 17 gram/dose powder Take 17 grams by mouth once daily for 14 days. Dissolve dose in 4 - 8 ounces of liquid and take as directed. - phenazopyridine (PYRIDIUM) 200 mg tablet Take 1 tablet by mouth three times a day as needed for up to (more content not included)... [facility] 03-19-2025 Telephone encounter Note LVM to call back and schedule.(2 visit AM/PM) George Gill [facility] 03-19-2025 Miscellaneous Notes LVM to call back and schedule.(2 visit AM/PM) George Gill [facility] 03/18 Retention after VT [address] Mckeon would like VT on 03/20 Thanks! documented in this encounter [facility] 03-19-2025 Telephone encounter Note [facility]P 03/18 Retention after VT 18 coude in Mike would like VT on 03/20 Thanks! [facility] 03-19-2025 Note HNO ID: [id number] Author: LORENZA HUTTON RN Service: Care Management Author Type: Registered Nurse Type: Care Mgt Progress Note Filed: 03/19/2025 13:25 Note Text: CARE MANAGEMENT DISCHARGE NOTE SERVICE DATE: March 19, 2025 SERVICE TIME: 1:25 PM Admission Date: 03/18/2025 LOS: 1 day Discharge Arrangement Discharge Arrangement: Home with Self Care, Home with Relative Services Arranged Provider Name: NA Phone: NA Caregiver Assessment Caregiver is ready, willing and able to meet the patient's needs as recommended by the inter-professional team: Yes Name of Caregiver: Spouse Transportation Arrangements Transportation Arrangements: Car Date of Trip: 03/19/25 Destination: Home Handoff Communication: Handoff to: Primary Care Physician Primary Care Physician Name/Phone: Dr Zambrano [phone] Additional Information: Patient is discharging home with self care. Spouse to provide transportation. SIGNATURE: Lorenza Hutton RN PATIENT NAME: Jing Mckeon DATE: March 19, 2025 TIME: 1:25 PM [facility] 03-19-2025 Note HNO ID: [id number] Author: SRINIVAS WOODY MD Service: Urology Author Type: Resident Type: Progress Notes Filed: 03/19/2025 17:33 Note Text: Attestation signed by Srinivas Woody MD at 03/19/2025 5:33 PM ===== Urology Attending Attestation: I saw and evaluated the patient. Discussed with the resident and agree with resident's findings and plan as documented in the resident's note. Srinivas Woody MD [facility] [place] UROLOGY PROGRESS NOTE PATIENT NAME: Jing Mckeon DATE OF : 1955 ADMISSION DATE: 03/18/2025 9:38 AM Subjective Patient is a 69 year old man with BPH who is POD 1 after HoLEP. Patient resting comfortably in bed this morning with no pain. Patient denies nausea, vomiting, fever, and chills. Patient has [address] in which was clamped yesterday. Urine is grade II this morning. Patient on Ancef. Objective VS: BP 143/65 Pulse 69 Temp 36.7 ?C (98.1 ?F) (Oral) Resp 17 SpO2 95% I AND O - 24hr: Intake/Output Summary (Last 24 hours) at 03/19/2025 0558 Last data filed at 03/19/2025 0251 Gross per 24 hour Intake 1400 ml Output 4000 ml Net -2600 ml Physical Exam: General: Resp: Abdomen: No acute distress Normal effort Soft, NTTP, ND : [address] draining grade II urine Labs and Imaging Studies LABS: BMP: No results for input(s): NA, K, CHLOR, CO2, BUN, CREAT, GLUC in the last 72 hours. CBC: No results for input(s): WBC, HB, HCT, PLT in the last 72 hours. Urinalysis: Specific Crowell, Ur Date Value Ref Range Status 03/04/2025 1.006 1.005 - 1.030 Final Glucose, Urine Date Value Ref Range Status 03/04/2025 Negative Trace, Negative Final Bilirubin, Urine Date Value Ref Range Status 03/04/2025 Negative Negative Final Ketones,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 (dizziness). Yes albuterol HFA (VENTOLIN HFA) 90 mcg/actuation inhaler Inhale 2 puffs as instructed every 4 hours as needed for wheezing/shortness of breath (cough). Yes benzonatate (TESSALON PERLE) 100 mg capsule Take 1-2 capsules by mouth three times a day as needed for cough. Yes ondansetron orally disintegrating (ZOFRAN ODT) 4 mg disintegrating tablet Take 1 tablet by mouth every 6 hours as needed for nausea/vomiting. Yes tamsulosin (FLOMAX) 0.4 mg Take 1 capsule by mouth two times a day. Yes enalapril (VASOTEC) 20 mg tablet Take 1 tablet by mouth two times a day. Yes metoprolol succinate ER (TOPROL XL) 50 mg 24 hr tablet Take 1 tablet by mouth two times a day. Yes Cholecalciferol, Vitamin D3, 125 mcg (5,000 unit) cap Take 1 capsule by mouth once daily. Yes inulin-chromium picolinate (FIBER SELECT GUMMIES) 2-100 gram-mcg chew Take 1 Dose by mouth once daily. Yes dorzolamide HCl/timolol maleat (DORZOLAMIDE-TIMOLOL OPHTHALMIC) Use 1 Drop in both eyes two times a day. Yes beta-carotene,A,-vits C,E/mins (OCUVITE ORAL) Take 1 tablet by mouth once daily. Yes LATANOPROST, PF, OPHTHALMIC Use 1 Drop in both eyes every morning. Yes simvastatin (ZOCOR) 40 mg tablet Take 1 tablet by mouth daily at bedtime. Yes COSOPT 2 %-0.5 % EYE DROPS Use in eyes. Yes ASPIRIN 81 MG TAB Take 81 mg by mouth once daily. Yes B COMPLEX CAP Take 1 capsule by mouth once daily. Yes MULTIVITAMIN TAB Take 1 tablet by mouth once daily. Yes flash glucose sensor (FREESTYLE LUIZA 2 SENSOR) kit Ust to check blood sugars once daily. Please apply free voucher for 1 sensor, pt to bring in gabapentin (NEURONTIN) 300 mg capsule Take 1 capsule by mouth two times a day for 90 days. Patient not taking: Reported on 02/21/2024 flash glucose scanning reader (FREESTYLE LUIZA 2 READER) Use to check blood sugars once a day. glucagon (GVOKE HYPOPEN 2-PACK) 0.5 mg/0.1 mL AutoInjector Use to treat severe hypoglycemic episode as recommend on product labeling. glucose 4 gram chewable tablet Take 4 tablets by mouth as needed. Insulin [place], Disposable, (BD ULTRA-FINE DONNIE PEN NEEDLE) 32 gauge x 5/32 Use as directed with insulin injections three times daily Insulin Syringe-Needle U-100 (BD INSULIN SYRINGE UF II) 0.5 mL 31 gauge x 5/16 syrg Use as directed with insulin injections three times daily Blood Sugar Diagnostic, Drum (ACCU-CHEK COMPACT TEST) Strp Testing 2-3 times daily lancets(FREESTYLE LANCETS) Use as directed. No medication comments found. ALLERGIES No Known Allergies Objective PHYSICAL EXAM: General: alert and oriented and healthy appearance. Pertinent negatives noted - not distressed. Skin: normal color, no rash or lesions. HEENT: EOM intact and pupils equal round. Cardiovascular: regular rate and rhythm, normal S1 and S2, no rub, murmurs, or gallop. Respiratory: normal breath sounds, no wheezes or crackles. No chest wall deformity or tenderness. Abdomen: bowel sounds present. Extremities: no deformity, no edema or tenderness, no joint swelling or clubbing. Neurological: normal cognition and motor skills. Gait normal. No weakness or sensory deficit. PAIN ASSESSMENT: VITALS: BP 150/76 Pulse 70 Temp 98.1 Resp 18 Ht 5' 7 (1.70m) Wt 170 lb 12.8 oz (77.5kg) SpO2 96% BMI 26.74 kg/(m^2). Diagnostic tests reviewed for today's visit: Lab Value Units Date High Low HB 14.0 g/dL 10/22/2024 17.0 13.0 HCT 41.6 % 10/22/2024 51.0 39.0 WBC 9.88 k/uL 10/22/2024 11.00 3.70 PLT 263 k/uL 10/22/2024 400 150 NA 139 mmol/L 12/30/2024 144 136 K 4.5 mmol/L 12/30/2024 5.1 3.7 GLUC 185 mg/dL 12/30/2024 99 74 BUN 17 mg/dL 12/30/2024 24 9 CREAT 0.67 mg/dL 12/30/2024 1.22 0.73 PTSEC No results within date range. INR No results within date range. APTT No results within date range. ALT 21 U/L 12/30/2024 54 10 AST 25 U/L 12/30/2024 40 14 TBILI 0.4 mg/dL 12/30/2024 1.3 0.2 TSH 2.190 mIU/L 10/22/2024 4.200 0.270 Lab Value Units Date High Low HCGQT No results within date range. UHCG No results within date range. HCG, BODY* No results within date range. Lab Value Units Date High Low ABORHD No results within date range. ABSCREEN No results within date range. Hemoglobin A1C (%) Date Value 12/30/2024 8.2 09/29/2024 7.8 06/20/2024 8.2 11/03/2023 7.4 07/14/2023 7.5 06/27/2021 7.7 11/01/2020 9.3 11/08/2019 10.0 07/07/2019 9.9 12/30/2018 8.9 No results found for this or any previous visit (from the past 8760 hours). No results found for this or any previous visit (from the past 02387 hours). Implantable Devices: hardware in left ankle, hardware in left hip Assessment/Plan Benign prostatic hyperplasia with weak urinary stream [N40.1, R39.12] PLAN Planned Procedure: Procedure(s): LASER ENUCLEATION PROSTATE WITH MORCELLATION (N/A) I spent a total of 50 minutes on the date of the service which included preparing to see the patient, [id number] patient care, completing clinical documentation, obtaining and/or reviewing separately obtained history, performing a medically appropriate examination, and counseling and educating the patient/family/caregiver. Instructions Given to Patient: Instructions located in the after visit summary. Patient given verbal and written preop instructions and voices comprehension and compliance. SIGNATURE: Jayne Hernandez APRN.CNP PATIENT NAME: Jing Mckeon DATE: March 04, 2025 TIME: 2:20 PM PAGER/CONTACT #: [1] Social History Tobacco Use Smoking status: Never Smokeless tobacco: Never Vaping Use Vaping status: Never Used Substance Use Topics Alcohol use: Not Currently Drug use: Never documented in this encounter [facility] 03-04-2025 Instructions Jayne Hernandez APRN.CNP - 03/04/2025 7:05 AM EDT PATIENT PREOPERATIVE INSTRUCTIONS Your surgeon has scheduled for your procedure at this surgery center: [facility]: [phone], [address] [facility]. [place] [id number] Please enter through the main entrance and proceed to the blue elevators. The surgery [place] [facility] is located to the left of the blue elevator. Please read below carefully for your personalized instructions. SURGERY DATE : 03/18/2025 Your surgeon's office will provide you with your ARRIVAL TIME for surgery. - If you have not received an arrival time by the afternoon before your surgery date, please follow up with your surgeon's office. - If you are scheduled for a Sunday surgery, please make sure you have your arrival time by Sunday afternoon. Please be aware that emergency situations arise, which may delay or change your surgical time. If this happens, your surgeon's office will notify you as soon as possible and regret any inconvenience. Requirement for Vaccinations : 72-hour period between getting vaccine and date of surgery. Dietary Restrictions: - No solid food after midnight. - You may have 12 ounces of clear liquids (water, clear juices such as apple juice or gatorade, carbonated beverages, clear tea, black coffee, jello) until 2 hours before scheduled arrival at facility. Do not eat or drink anything, including water or coffee within 2 hours of your ARRIVAL TIME. This is important because if you do, your procedure may have to be cancelled Blood Thinning Medications: - Stop NSAIDS (Ibuprofen, Advil, Aleve, Motrin, Celebrex, Mobic, etc.) 7 days before surgery, as directed by your surgeon. You may take Tylenol (Acetaminophen) or any of your pain medications that do not contain aspirin or NSAIDS as needed. IF YOU TAKE ANY OF THE FOLLOWING BLOOD THINNERS, PLEASE CONTACT YOUR SURGEON AND THE PHYSICIAN WHO PRESCRIBES IT FOR YOU IN ORDER TO GET PERIOPERATIVE INSTRUCTIONS SOON POSSIBLE. BLOOD THINNERS: Aspirin , Coumadin, Plavix, Eliquis, Pradaxa, Xarelto, Lovenox, Brilinta, Effient, Savaysa, Arixtra, etc - Stop Vitamin E, fish oil, multivitamins, Marijuana, CBD oil and other over the counter herbals and dietary supplements 7 days before surgery. -This would not apply to cancer patients who are prescribed Marinol or any other prescription form on marijuana or CBD. Medications: Approved medications to take the morning of surgery with a sip of water: BP, HCTZ, Heart, thyroid, psych, seizure, and pain medications excluding NSAIDS. Use inhalers as prescribed. Please bring inhalers. Diabetes: Please follow up with the provider that manages your diabetes and how to prepare you for surgery. Do not take the morning of surgery: Tradjenta, Metformin, Actos/Pioglitazone and Amaryl/Glimepiride. For the following Medications, please HOLD 2 DAYS PRIOR TO SURGERY: Glucotrol/Glipizide, Januvia/Sitagliptin, Glyburide, Prandin/Repaglinide, Starlix/Nateglinide, Symlin/Pramlintide, For the following Medications, please HOLD 3 DAYS PRIOR TO SURGERY: Canagliflozin/Invokana, Dapagliflozin/Farxiga ,Empagliflozin/Jardiance, Invokamet/Canagliflozin and Metformin, Xigduo XR/Dapagliglozin and Metformin, Glyxambi/Empagliflozin and Metformin, Syndardy/Empagliflozin and Metformin For the following Medications, please HOLD 4 DAYS PRIOR TO SURGERY: Ertugliflozin/Steglatro For the following Medications, please HOLD 7 DAYS PRIOR TO SURGERY: GLP-1 AGONIST: Adlyxin (Lixisenatide), Bydureon BCise (Exenatide suspension), Byetta (Exenatide), Mounjaro (Tirzepatide), Ozempic (Semaglutide injection), Rybelsus (Semaglutide tablets), Tanzeum (Albiglutide), Trulicity (Dulaglutide), Victoza (Liraglutide), Wegovy (Semaglutide), Saxenda (Liraglutide) Insulin Medication Instructions: Please follow up with the provider that manages your Insulin and how to prepare you for surgery. Erectile dysfunction: If you take any medications for erectile dysfunction- Cialis (Tadalafil), Levitra, Staxyn, (Vardenafil), Viagra (Sildenenafil). Please do not take these for 48 hours before surgery. Pre Surgery Med Instructions Medication instructions albuterol HFA (VENTOLIN HFA) 90 mcg/actuation inhaler Use as prescribed and bring inhaler to surgery ASPIRIN 81 MG TAB Follow prescriber's instructions. B COMPLEX CAP Stop 7 days before surgery. benzonatate (TESSALON PERLE) 100 mg capsule Continue as prescribed. beta-carotene,A,-vits C,E/mins (OCUVITE ORAL) Stop 7 days before surgery. Cholecalciferol, Vitamin D3, 125 mcg (5,000 unit) cap Stop 7 days before surgery. COSOPT 2 %-0.5 % EYE DROPS Continue as prescribed. dorzolamide HCl/timolol maleat (DORZOLAMIDE-TIMOLOL OPHTHALMIC) Continue as prescribed. enalapril (VASOTEC) 20 mg tablet DO NOT TAKE THE MORNING OF SURGERY. insulin aspart U-100 (NOVOLOG FLEXPEN U-100 INSULIN) 100 unit/mL (3 mL) Follow prescriber's instructions. insulin degludec (TRESIBA FLEXTOUCH U-100) 100 unit/mL (3 mL) injection pen Follow prescriber's instructions. inulin-chromium picolinate (FIBER SELECT GUMMIES) 2-100 gram-mcg chew DO NOT TAKE THE MORNING OF SURGERY. LATANOPROST, PF, OPHTHALMIC Continue as prescribed. meclizine (ANTIVERT) 25 mg tab Continue as prescribed. metoprolol succinate ER (TOPROL XL) 50 mg 24 hr tablet Use day of surgery. MULTIVITAMIN TAB Stop 7 days before surgery. ondansetron orally disintegrating (ZOFRAN ODT) 4 mg disintegrating tablet Continue as prescribed. semaglutide (OZEMPIC) 1 mg/dose (4 mg/3 mL) pen Stop 7 days before surgery. simvastatin (ZOCOR) 40 mg tablet If you normally take this medication in the morning, it is ok to take the morning of surgery with a sip of water. Tadalafil (CIALIS) 20 mg tablet Stop 2 days before surgery. tamsulosin (FLOMAX) 0.4 mg If you normally take this medication in the morning, it is ok to take the morning of surgery with a sip of water. Pain Medications: Tylenol for pain as needed and if you are not allergic to. If you start any new medications after today's visit, please contact the surgeon's office. Important Reminders: - If you use CPAP/BIPAP, bring the machine with you to the surgery center. - If you are prescribed inhalers for breathing, continue using them AND bring them to the surgery center. - Candy, mints, gum and tobacco products are NOT permitted the morning of surgery. - Hearing aids, dentures and glasses may be worn the morning of surgery. - NO jewelry, body piercings, makeup, hairpins or contacts are to be worn the day of surgery. - Oral hygiene and a shower or bath is required the evening before or the morning of surgery. Use the [employer] body wash supplied to you along with the instruction. - NO lotion, creams, powders or deodorants on the skin the day of surgery - Wear loose, comfortable clothing that will accommodate bandages. - Your length of stay will be determined by your surgeon - You will need to have someone else (Family or friend) drive you home once discharged from the hospital. You are not allowed to drive yourself home after surgery. - YOU MUST HAVE A RESPONSIBLE NECKTIES PAINTER TAKE YOU HOME. A DUPLICATING MACHINE MECHANIC, CAB OR UBER NECKTIES PAINTER CANNOT BE MADE A RESPONSIBLE NECKTIES PAINTER. - You cannot stay in a hotel alone after outpatient surgery. You will not be permitted to have your surgery, if you do not have someone to take care of you. - It is recommended patients have a 72-hour period between getting their vaccine and date of surgery. - If you develop symptoms such as a fever, cold, or flu, or have other changes to your health within TWO DAYS of scheduled surgery or the morning of surgery, please contact the surgery center above. Personal Belongings: - Leave ALL valuables and money at home or with family members. - You will need a form of ID and insurance card to check in the morning of surgery. - You will have to wear a hospital gown during your stay but if you wish to bring undergarments for after surgery you may. If you already have an Advance Directive, please fax a copy to [phone] or Carlos GLASS at [phone] or email to for it to be added to your chart. If you do not have an Advance Directive, you can find the appropriate form and more information at [email or web address]. We recommend that you complete the Advance Directive form found on the website and bring it with you the day of your surgery. It can be witnessed and scanned into your chart that day. Jayne Hernandez APRN.CNP 03/04/25 documented in this encounter [facility] 02-23-2025 Note HNO ID: [id number] Author: JOSSY CARUSO APRN.CAVALRY SCOUT Service: ? Author Type: Nurse Specialist Type: Progress Notes Filed: 02/26/2025 11:22 Note Text: . [facility] 02-12-2025 History of Present illness Narrative Images from the original note were not included. Primary Care Pharmacy Visit CC (Reason for Consult): (E11.29, R80.9, Z79.4) Type 2 diabetes mellitus with microalbuminuria, with long-term current use of insulin (HCC) (primary encounter diagnosis) Goal(s): A1c <8% Last Collaborating Provider Visit: 10/22/[address] Kenya Ch Tonya Mckeon is a 69 year old male presenting for follow up visit in person. Patient consents to pharmacy collaborative practice agreement. Last Pharmacy Visit: 01/01/25 - Tresiba increased, Novolog decreased HPI: Reports doing well States BGs have been doing pretty well, occasional lows this past week. Usually occurs in the morning Will be having surgery 03/18/25, needs instructions for how to take his insulin then. Pre-surgery note mentions requirement to hold Ozempic 7 days prior to surgery Tolerating Ozempic well Still has quite a few boxes of Ozempic left at home Current DM Medications: Ozempic 1 mg once weekly on Mondays Tresiba 22 units once daily at bedtime Novolog 10 units before meals - taking 12 units with meals Diet Denies any recent changes GLYCEMIC CONTROL: Glucometer present at visit: Yes Hypoglycemia: Yes CGM Data Past medical history reviewed. ALLERGIES No Known Allergies Current Outpatient Medications Medication Sig Dispense Refill semaglutide (OZEMPIC) 1 mg/dose (4 mg/3 mL) pen Inject 1 mg subcutaneously one time a week. [employer] PAP. Do not send to pharmacy - patient receives through patient assistance program. For medication order changes (med, dose, frequency) please route to [facility]. 9 mL Tadalafil (CIALIS) 20 mg tablet Take 1 tablet by mouth once daily as needed. Take 1-2 hours before sexual activity. 30 tablet 0 insulin aspart U-100 (NOVOLOG FLEXPEN U-100 INSULIN) 100 unit/mL (3 mL) Inject 10 units before breakfast, 10 units before lunch, and 10 units before dinner as directed. Through [employer] Patient Assistance. insulin degludec (TRESIBA FLEXTOUCH U-100) 100 unit/mL (3 mL) injection pen Inject 22 Units subcutaneously every morning. [employer] Patient Assistance Medication meclizine (ANTIVERT) 25 mg tab Take 1 tablet by mouth three times a day as needed (dizziness). 30 tablet 1 albuterol HFA (VENTOLIN HFA) 90 mcg/actuation inhaler Inhale 2 puffs as instructed every 4 hours as needed for wheezing/shortness of breath (cough). 18 g 3 benzonatate (TESSALON PERLE) 100 mg capsule Take 1-2 capsules by mouth three times a day as needed for cough. 60 capsule 1 ondansetron orally disintegrating (ZOFRAN ODT) 4 mg disintegrating tablet Take 1 tablet by mouth every 6 hours as needed for nausea/vomiting. 20 tablet 0 tamsulosin (FLOMAX) 0.4 mg Take 1 capsule by mouth two times a day. 180 capsule 3 enalapril (VASOTEC) 20 mg tablet Take 1 tablet by mouth two times a day. 180 tablet 3 flash glucose sensor (FREESTYLE LUIZA 2 SENSOR) kit Ust to check blood sugars once daily. Please apply free voucher for 1 sensor, pt to bring in 6 Each 3 metoprolol succinate ER (TOPROL XL) 50 mg 24 hr tablet Take 1 tablet by mouth two times a day. 60 tablet 5 gabapentin (NEURONTIN) 300 mg capsule Take 1 capsule by mouth two times a day for 90 days. (Patient not taking: Reported on 02/21/2024) 60 capsule 2 Cholecalciferol, Vitamin D3, 125 mcg (5,000 unit) cap Take 1 capsule by mouth once daily. inulin-chromium picolinate (FIBER SELECT GUMMIES) 2-100 gram-mcg chew Take 1 Dose by mouth once daily. dorzolamide HCl/timolol maleat (DORZOLAMIDE-TIMOLOL OPHTHALMIC) Use 1 Drop in both eyes two times a day. beta-carotene,A,-vits C,E/mins (OCUVITE ORAL) Take 1 tablet by mouth once daily. LATANOPROST, PF, OPHTHALMIC Use 1 Drop in both eyes every morning. simvastatin (ZOCOR) 40 mg tablet Take 1 tablet by mouth daily at bedtime. 90 tablet 3 flash glucose scanning reader (GeneAssessSTYLE LUIZA 2 READER) Use to check blood sugars once a day. 1 Each 0 glucagon (GVOKE HYPOPEN 2-PACK) 0.5 mg/0.1 mL AutoInjector Use to treat severe hypoglycemic episode as recommend on product labeling. 0.2 mL 3 glucose 4 gram chewable tablet Take 4 tablets by mouth as needed. 30 tablet 2 Insulin [place], Disposable, (BD ULTRA-FINE DONNIE PEN NEEDLE) 32 gauge x 5/32 Use as directed with insulin injections three times daily 100 Each 11 Insulin Syringe-Needle U-100 (BD INSULIN SYRINGE UF II) 0.5 mL 31 gauge x 5/16 syrg Use as directed with insulin injections three times daily 300 Syringe 3 Blood Sugar Diagnostic, Drum (ACCU-CHEK COMPACT TEST) Strp Testing 2-3 times daily 306 Strip 3 lancets(FREESTYLE LANCETS) Use as directed. 300 3 COSOPT 2 %-0.5 % EYE DROPS Use in eyes. 0 ASPIRIN 81 MG TAB Take 81 mg by mouth once daily. 0 B COMPLEX CAP Take 1 capsule by mouth once daily. 0 MULTIVITAMIN TAB Take 1 tablet by mouth once daily. 0 No current facility-administered medications for this visit. Pill bottles are not present. Adherence: denies missed doses. Rx coverage: Payor: MEDICARE / Plan: MEDICARE A AND B / Product Type: Medicare / Medications affordable? Enrolled in [employer] ([employer] BI, Novolog and Circle) Patient Assistance Programs being utilized: [employer] Company Medication Status Renewal Due Where Delivered Mike Nordisk Tresiba U100 Approved 07/22/25 [place] INTM Novolog Approved 07/22/25 [place] INTM Ozempic 1 mg Approved 07/22/25 [place] INTM Pen needles Approved 07/22/25 [employer] INTM EXAM: There were no vitals taken for this visit. Last 3 Encounter BP Readings: Date: BP: 12/31/2024 136/82 11/17/2024 137/66 11/03/2024 130/74 Wt: 76.2 kg (168 lb) BMI: 26.31 kg/(m^2) LABS: Lab Results Component Value Date HBA1C 8.2 12/30/2024 HBA1C 7.8 09/29/2024 HBA1C 8.2 06/20/2024 HBA1C 7.7 06/27/2021 HBA1C 9.3 11/01/2020 HBA1C 10.0 11/08/2019 Glucose 185 12/30/2024 BUN 17 12/30/2024 Creatinine 0.67 12/30/2024 NA 139 12/30/2024 K 4.5 12/30/2024 Chloride 105 12/30/2024 CO2 26 12/30/2024 Protein, Total 7.0 12/30/2024 Albumin 4.0 12/30/2024 Calcium 9.4 12/30/2024 Alk Phos Total 123 12/30/2024 Bilirubin, Total 0.4 12/30/2024 AST (SGOT) 25 12/30/2024 ALT (SGPT) 21 12/30/2024 Lab Results Component Value Date CHOL 154 06/20/2024 CHOL 149 06/27/2021 LDL 76 06/20/2024 LDL 67 06/27/2021 HDL 59 06/20/2024 HDL 62 06/27/2021 TG 95 06/20/2024 TG 102 06/27/2021 Albumin/Creat Ratio (mg/g) Date Value 10/22/2024 55 (H) eGFR-All Other Races (.) Date Value 06/27/2021 >60 Estimated Glomerular Filtration Rate (mL/min/1.73m ) Date Value 12/30/2024 100 ASSESSMENT/PLAN: 1. Type 2 diabetes mellitus with microalbuminuria, with long-term current use of insulin (HCC) - ICD9: 250.40, 791.0, V58.67, ICD10: E11.29, R80.9, Z79.4 - Improving control - Decrease Tresiba to 20 units once daily - Decrease Novolog to 10 units before meals, as previously prescribed - Continue Ozempic 1 mg once weekly - Statin prescribed - simvastatin - Blood glucose monitoring on a continuous glucose monitoring schedule - Counseled on healthy diet and regular exercise - Discussed diabetic education issues of hypoglycemic/hyperglycemic symptoms - Follow up in 2 months, sooner should any other issues arise. - Due for A1c ~ 04/01/25 - Provided patient with medication dosing instructions for prior to upcoming surgery on 03/18 Prior to surgery instructions: - Hold your Ozempic dose on March 09 and March 16. You can resume the Ozempic after your surgery on your normal day of Sunday (will be March 23) DAY BEFORE surgery: Take half the usual dose of your basal/long-acting insulin - Take 10 units of Tresiba Skip your mealtime (Novolog) insulin while you are not eating solid foods DAY OF surgery: Hold all insulins the morning of your procedure. You may resume taking your insulin after you are tolerating regular meals post-procedure. Overdue Diabetes Health Maintenance: Health Maintenance - Diabetes Topic Date Due Diabetic Foot Exam 10/21/2024 Follow Up: Next PCP visit: 02/23/25 Next PharmD visit: 04/16/25 Jessica Ricks, PharmD, [employer] [facility] [employer] [facility] Primary [facility] Clinical Cylinder Valve Repairer I spent a total of 30 minutes on the date of the service which included preparing to see the patient, [id number] patient care, completing clinical documentation, counseling and educating the patient/family/caregiver, and ordering medications, tests, or procedures. documented in this encounter [facility] 02-12-2025 Instructions Jessica Ricks RPh - 02/12/2025 1:30 PM EDT Decrease Tresiba to 20 units once daily Decrease Novolog to 10 units before meals Prior to surgery instructions: - Hold your Ozempic dose on March 09 and March 16. You can resume the Ozempic after your surgery on your normal day of Sunday (will be March 23) DAY BEFORE surgery: Take half the usual dose of your basal/long-acting insulin - Take 10 units of Tresiba Skip your mealtime (Novolog) insulin while you are not eating solid foods DAY OF surgery: Hold all insulins the morning of your procedure. You may resume taking your insulin after you are tolerating regular meals post-procedure. Please call me ([phone]) when you open your last box of Ozempic Get A1c done after April 01, before our appointment documented in this encounter [facility] 02-12-2025 Note HNO ID: [id number] Author: JESSICA RICKS RPh Service: ? Author Type: Pharmacist Type: Progress Notes Filed: 02/12/2025 14:50 Note Text: Primary Care Pharmacy Visit CC (Reason for Consult): (E11.29, R80.9, Z79.4) Type 2 diabetes mellitus with microalbuminuria, with long-term current use of insulin (HCC) (primary encounter diagnosis) Goal(s): A1c <8% Last Collaborating Provider Visit: 10/22/[address] Kenya Mckeon is a 69 year old male presenting for follow up visit in person. Patient consents to pharmacy collaborative practice agreement. Last Pharmacy Visit: 01/01/25 - Tresiba increased, Novolog decreased HPI: Reports doing well States BGs have been doing pretty well, occasional lows this past week. Usually occurs in the morning Will be having surgery 03/18/25, needs instructions for how to take his insulin then. Pre-surgery note mentions requirement to hold Ozempic 7 days prior to surgery Tolerating Ozempic well Still has quite a few boxes of Ozempic left at home Current DM Medications: Ozempic 1 mg once weekly on Mondays Tresiba 22 units once daily at bedtime Novolog 10 units before meals - taking 12 units with meals Diet Denies any recent changes GLYCEMIC CONTROL: Glucometer present at visit: Yes Hypoglycemia: Yes CGM Data Past medical history reviewed. ALLERGIES No Known Allergies Current Outpatient Medications Medication Sig Dispense Refill semaglutide (OZEMPIC) 1 mg/dose (4 mg/3 mL) pen Inject 1 mg subcutaneously one time a week. [employer] PAP. Do not send to pharmacy - patient receives through patient assistance program. For medication order changes (med, dose, frequency) please route to [facility]. 9 mL Tadalafil (CIALIS) 20 mg tablet Take 1 tablet by mouth once daily as needed. Take 1-2 hours before sexual activity. 30 tablet 0 insulin aspart U-100 (NOVOLOG FLEXPEN U-100 INSULIN) 100 unit/mL (3 mL) Inject 10 units before breakfast, 10 units before lunch, and 10 units before dinner as directed. Through [employer] Patient Assistance. insulin degludec (TRESIBA FLEXTOUCH U-100) 100 unit/mL (3 mL) injection pen Inject 22 Units subcutaneously every morning. [employer] Patient Assistance Medication meclizine (ANTIVERT) 25 mg tab Take 1 tablet by mouth three times a day as needed (dizziness). 30 tablet 1 albuterol HFA (VENTOLIN HFA) 90 mcg/actuation inhaler Inhale 2 puffs as instructed every 4 hours as needed for wheezing/shortness of breath (cough). 18 g 3 benzonatate (TESSALON PERLE) 100 mg capsule Take 1-2 capsules by mouth three times a day as needed for cough. 60 capsule 1 ondansetron orally disintegrating (ZOFRAN ODT) 4 mg disintegrating tablet Take 1 tablet by mouth every 6 hours as needed for nausea/vomiting. 20 tablet 0 tamsulosin (FLOMAX) 0.4 mg Take 1 capsule by mouth two times a day. 180 capsule 3 enalapril (VASOTEC) 20 mg tablet Take 1 tablet by mouth two times a day. 180 tablet 3 flash glucose sensor (FREESTYLE LUIZA 2 SENSOR) kit Ust to check blood sugars once daily. Please apply free voucher for 1 sensor, pt to bring in 6 Each 3 metoprolol succinate ER (TOPROL XL) 50 mg 24 hr tablet Take 1 tablet by mouth two times a day. 60 tablet 5 gabapentin (NEURONTIN) 300 mg capsule Take 1 capsule by mouth two times a day for 90 days. (Patient not taking: Reported on 02/21/2024) 60 capsule 2 Cholecalciferol, Vitamin D3, 125 mcg (5,000 unit) cap Take 1 capsule by mouth once daily. inulin-chromium picolinate (FIBER SELECT GUMMIES) 2-100 gram-mcg chew Take 1 Dose by mouth once daily. dorzolamide HCl/timolol maleat (DORZOLAMIDE-TIMOLOL OPHTHALMIC) Use 1 Drop in both eyes two times a day. beta-carotene,A,-vits C,E/mins (OCUVITE ORAL) Take 1 tablet by mouth once daily. LATANOPROST, PF, OPHTHALMIC Use 1 Drop in both eyes every morning. simvastatin (ZOCOR) 40 mg tablet Take 1 tablet by mouth daily at bedtime. 90 tablet 3 flash glucose scanning reader (FREESTYLE LUIZA 2 READER) Use to check blood sugars once a day. 1 Each 0 glucagon (GVOKE HYPOPEN 2-PACK) 0.5 mg/0.1 mL AutoInjector Use to treat severe hypoglycemic episode as recommend on product labeling. 0.2 mL 3 glucose 4 gram chewable tablet Take 4 tablets by mouth as needed. 30 tablet 2 Insulin [place], Disposable, (BD ULTRA-FINE DONNIE PEN NEEDLE) 32 gauge x 5/32 Use as directed with insulin injections three times daily 100 Each 11 Insulin Syringe-Needle U-100 (BD INSULIN SYRINGE UF II) 0.5 mL 31 gauge x 5/16 syrg Use as directed with insulin injections three times daily 300 Syringe 3 Blood Sugar Diagnostic, Drum (ACCU-CHEK COMPACT TEST) Strp Testing 2-3 times daily 306 Strip 3 lancets(FREESTYLE LANCETS) Use as directed. 300 3 COSOPT 2 %-0.5 % EYE DROPS Use in eyes. 0 ASPIRIN 81 MG TAB Take 81 mg by mouth once daily. 0 B COMPLEX CAP Take 1 capsule by mouth once daily. 0 MULTIVITAMIN TAB Take 1 tablet by mouth (more content not included)... [facility] 02-10-2025 Note HNO ID: [id number] Author: PRUDENCIO MCKEON MD Service: ? Author Type: Physician Type: Procedures Filed: 02/10/2025 14:53 Note Text: [facility] Patient presents with BPH for cystoscopy. UNIVERSAL PROTOCOL / SAFETY CHECKLIST Procedure to be Performed: Cystoscopy Sign In: A Moment of CARE was completed. Appropriate PPE (Personal Protective Equipment) worn by all providers involved with the procedure. Special equipment not required. Patient/Surrogate Stated/Verified: Patient name, Date of , Relevant allergies, and the intended procedure Time Out: Relevant labs, photos, and/or imaging studies have been reviewed. Intended patient and procedure match the source document(s) (e.g. consent, HANDP, associated studies [imaging, pathology]) match the intended patient and procedure. Consent obtained and matches the intended procedure. Yes. Correct side/site is not applicable. Medications required for this procedure are verified. Fire risk assessed and is not applicable. Implants: are not applicable. Sign Out: Specimens not collected. All instruments, equipment, possible retained foreign bodies are accounted for. Yes. The post-procedure plan of care has been communicated to the patient or surrogate. CYSTOSCOPY PROCEDURE NOTE: The benefits, risks, alternatives of the cystoscopy procedure and personnel were discussed with the patient. The verbal consent was obtained and the patient agrees to proceed. Procedure: The patient was placed on the procedure table in the supine position and prepped and draped in the usual sterile fashion. 2% Lidocaine Jelly was placed per urethra as an anesthetic in the standard fashion. Once adequate local anesthesia was achieved, the tip of the flexible cystoscope was carefully placed into the urethra under direct visual guidance. Urethra: Normal Prostate: Trilobar hypertrophy, no discrete median lobe Bladder: no stones, no tumors, no lesions, trabeculated, both ureteral orifices seen on retroflexion Retroflexion: with intravesical protrusion of the prostate (~10 mm) At the conclusion of the procedure, the flexible cystoscope was removed atraumatically. The patient tolerated the procedure without complications. Patient was given standard post-procedure instructions, and was directed to complete the course of oral antibiotics and increase oral fluid intake as directed. ASSESSMENT/PLAN: 1. Benign non-nodular prostatic hyperplasia with lower urinary tract symptoms - ICD9: 600.91, ICD10: N40.1 (primary diagnosis) 2. Elevated PSA - ICD9: 790.93, ICD10: R97.20 HoLEP as scheduled Prudencio Mckeon MD [facility] 02-10-2025 Procedure note [facility] [facility] Patient presents with BPH for cystoscopy. UNIVERSAL PROTOCOL / SAFETY CHECKLIST Procedure to be Performed: Cystoscopy Sign In: A Moment of CARE was completed. Appropriate PPE (Personal Protective Equipment) worn by all providers involved with the procedure. Special equipment not required. Patient/Surrogate Stated/Verified: Patient name, Date of , Relevant allergies, and the intended procedure Time Out: Relevant labs, photos, and/or imaging studies have been reviewed. Intended patient and procedure match the source document(s) (e.g. consent, H&P, associated studies [imaging, pathology]) match the intended patient and procedure. Consent obtained and matches the intended procedure. Yes. Correct side/site is not applicable. Medications required for this procedure are verified. Fire risk assessed and is not applicable. Implants: are not applicable. Sign Out: Specimens not collected. All instruments, equipment, possible retained foreign bodies are accounted for. Yes. The post-procedure plan of care has been communicated to the patient or surrogate. CYSTOSCOPY PROCEDURE NOTE: The benefits, risks, alternatives of the cystoscopy procedure and personnel were discussed with the patient. The verbal consent was obtained and the patient agrees to proceed. Procedure: The patient was placed on the procedure table in the supine position and prepped and draped in the usual sterile fashion. 2% Lidocaine Jelly was placed per urethra as an anesthetic in the standard fashion. Once adequate local anesthesia was achieved, the tip of the flexible cystoscope was carefully placed into the urethra under direct visual guidance. Urethra: Normal Prostate: Trilobar hypertrophy, no discrete median lobe Bladder: no stones, no tumors, no lesions, trabeculated, both ureteral orifices seen on retroflexion Retroflexion: with intravesical protrusion of the prostate (~10 mm) At the conclusion of the procedure, the flexible cystoscope was removed atraumatically. The patient tolerated the procedure without complications. Patient was given standard post-procedure instructions, and was directed to complete the course of oral antibiotics and increase oral fluid intake as directed. ASSESSMENT/PLAN: 1. Benign non-nodular prostatic hyperplasia with lower urinary tract symptoms - ICD9: 600.91, ICD10: N40.1 (primary diagnosis) 2. Elevated PSA - ICD9: 790.93, ICD10: R97.20 HoLEP as scheduled Prudencio Mckeon MD [facility] 02-10-2025 Procedure note [facility] Patient presents with BPH for cystoscopy. UNIVERSAL PROTOCOL / SAFETY CHECKLIST Procedure to be Performed: Cystoscopy Sign In: A Moment of CARE was completed. Appropriate PPE (Personal Protective Equipment) worn by all providers involved with the procedure. Special equipment not required. Patient/Surrogate Stated/Verified: Patient name, Date of , Relevant allergies, and the intended procedure Time Out: Relevant labs, photos, and/or imaging studies have been reviewed. Intended patient and procedure match the source document(s) (e.g. consent, H&P, associated studies [imaging, pathology]) match the intended patient and procedure. Consent obtained and matches the intended procedure. Yes. Correct side/site is not applicable. Medications required for this procedure are verified. Fire risk assessed and is not applicable. Implants: are not applicable. Sign Out: Specimens not collected. All instruments, equipment, possible retained foreign bodies are accounted for. Yes. The post-procedure plan of care has been communicated to the patient or surrogate. CYSTOSCOPY PROCEDURE NOTE: The benefits, risks, alternatives of the cystoscopy procedure and personnel were discussed with the patient. The verbal consent was obtained and the patient agrees to proceed. Procedure: The patient was placed on the procedure table in the supine position and prepped and draped in the usual sterile fashion. 2% Lidocaine Jelly was placed per urethra as an anesthetic in the standard fashion. Once adequate local anesthesia was achieved, the tip of the flexible cystoscope was carefully placed into the urethra under direct visual guidance. Urethra: Normal Prostate: Trilobar hypertrophy, no discrete median lobe Bladder: no stones, no tumors, no lesions, trabeculated, both ureteral orifices seen on retroflexion Retroflexion: with intravesical protrusion of the prostate (~10 mm) At the conclusion of the procedure, the flexible cystoscope was removed atraumatically. The patient tolerated the procedure without complications. Patient was given standard post-procedure instructions, and was directed to complete the course of oral antibiotics and increase oral fluid intake as directed. ASSESSMENT/PLAN: 1. Benign non-nodular prostatic hyperplasia with lower urinary tract symptoms - ICD9: 600.91, ICD10: N40.1 (primary diagnosis) 2. Elevated PSA - ICD9: 790.93, ICD10: R97.20 HoLEP as scheduled Prudencio Mckeon MD documented in this encounter [facility] 02-06-2025 Telephone encounter Note [employer] will no longer be auto-shipping Ozempic to providers offices when patient is due for refill. Instead, a refill/reorder form will need to be filled in each time and signed by provider, faxed to company & processed for medication to be sent. Confirmed is taking Ozempic 1 mg weekly. Ozempic dose change is not required Confirmed last shipment date: 12/23/24 (4 boxes received) Jessica Ricks PharmD, DEMETRACP Primary Care Clinical Cylinder Valve Repairer [facility] Work Phone: 02-06-2025 Miscellaneous Notes [employer] will no longer be auto-shipping Ozempic to providers offices when patient is due for refill. Instead, a refill/reorder form will need to be filled in each time and signed by provider, faxed to company & processed for medication to be sent. Confirmed is taking Ozempic 1 mg weekly. Ozempic dose change is not required Confirmed last shipment date: 12/23/24 (4 boxes received) Jessica Ricks PharmD, BCACP Primary Care Clinical Cylinder Valve Repairer documented in this encounter [facility] 01-29-2025 Telephone encounter Note Pt has picked up the novolog flexpen. Called [employer] to request a return label for the novolog vials. [facility] 01-29-2025 Miscellaneous Notes Pt has picked up the novolog flexpen. Called [employer] to request a return label for the novolog vials. Rec'd 3 boxes of novolog flexpens u100. Lot number Exp date 02/19/27 Called [employer] again. They will request another shipping label as the one requested was not rec'd. They report the novolog flex pen was processed 01/05/25 and should be rec'd 01/26/25 or 01/27/25. Pt noted the novalog vials were sent. This is to be flex pens. Pt doesn't want the vials. In review pt is correct per application it notes to be flex pens. Called [employer]. [employer] will fax to this office a return shipping label.to be rec'd in 3-5 business days. They will send to the pharmacy the novolog flex pens to be rec'd in 10-14 days. Pt says he can wait for the novolog flex pens. He has enough. Everything else was picked up. This is ready for pick and shovel man on the second floor. Pt notified. 1.Rec'd 5 boxes of mike fine 32Gtip 100 needles in each box Lot number [id number] exp date 04/21/29 2. Rec'd 4 boxes of ozempic 1mg/dose 4mg/3ml pen lot number [id number] exp date 05/22/27 3. Rec'd 2 boxes of tresiba u100 flexpens lot number is exp date 03/22/27 4 rec'd 5 boxes of novolog u100 lot number [id number] and exp date 09/19/26 documented in this encounter [facility] 01-29-2025 Telephone encounter Note Rec'd 3 boxes of novolog flexpens u100. Lot number Exp date 02/19/27 [facility] 01-14-2025 Note HNO ID: [id number] Author: ?, ?, ? Service: ? Author Type: ? Type: Progress Notes Filed: 01/14/2025 11:59 Note Text: January 14, 2025 11:58 AM Patient is scheduled for PAT on 03/18/2025 Surgery at [facility] with Dr. Mckeon on 04/01/2025 Post op is on 07/07/2025 Patient is aware of date, time, location, and pre op instructions. Patient had no further questions at this time. Surgical information has been sent to patient via [employer]. Lianna Lange [facility] 01-07-2025 Telephone encounter Note Called [employer] again. They will request another shipping label as the one requested was not rec'd. They report the novolog flex pen was processed 01/05/25 and should be rec'd 01/26/25 or 01/27/25. [facility] 01-05-2025 Note HNO ID: [id number] Author: NATASHA FITZGERALD LPN Service: ? Author Type: LICENSED NURSE Type: Progress Notes Filed: 01/05/2025 11:06 Note Text: Bladder scan obtained 7 ml of urine [facility] 01-05-2025 History of Present illness Narrative Bladder scan obtained 7 ml of urine Images from the original note were not included. [facility] UR[facility] CLINIC NOTE Patient: Jing Mckeon Provider: Prudencio Mckeon MD : 1955 Date of Service: 01/05/2025 PCP: Son Zambrano MD Chief complaint/Identification: Jing Mckeon is a 69 year old male patient who presents for evaluation of BPH and elevated PSA. ASSESSMENT: 1. Elevated PSA - ICD9: 790.93, ICD10: R97.20 (primary diagnosis) 2. Benign non-nodular prostatic hyperplasia with lower urinary tract symptoms - ICD9: 600.91, ICD10: N40.1 3. Screening for genitourinary condition - ICD9: V81.6, ICD10: Z13.89 4. Erectile dysfunction, unspecified erectile dysfunction type - ICD9: 607.84, ICD10: N52.9 Large gland BPH (93 cc, MRI 05/11/2024) Elevated PSA, last PSA 6.53 ng/mL - Negative MRI (04/2024) Erectile dysfunction PLAN: The patient and I discussed the options of continued medical therapy versus proceeding with surgical procedure to relieve bladder outlet obstruction from BPH. We discussed office procedures such as Urolift, iTIND and Rezum, endoscopic procedures such as TURP, button vaporization, Aquablation, laser enucleation, as well as OSP and RSP. He wants to proceed with HoLEP. I have discussed with patient the risks, benefits and alternatives of the procedure. Risks of procedure to include but not be limited to bleeding, infection including sepsis, urinary incontinence temporary or permanent, erectile dysfunction, retrograde ejaculation, urethral stricture or bladder neck contracture, bladder injury potentially requiring open surgical repair, partial resection potentially requiring reoperation, worsening lower urinary tract symptoms and incidental finding of prostate cancer and complications of anesthesia. All patient questions answered. Does not want to go home with catheter. Plan for surgery in [place], with admission for observation with same-day vs next-day trial of void pending urine. Will need pre-op cysto Will Rx Cialis 20 mg for ED -Consent signed -Pre-surgical testing -Labs -UA/UCX Prudencio Mckeon MD HPI: 01/05/2025 IPSS: 17 / 3 Also complains of erectile dysfunction, does not have many spontaneous erections. No prior interventions. Seen by Ryan Gee NP for elevated PSA. History of BPH, on Flomax for 10+ years (0.4 mg BID). 11/03/2024: IPSS 9 / 2; PVR 15 mL 04/25/2024: MRI prostate: 93 cc, negative for prostate cancer 09/17/2023: IPSS 18 / 4; PVR 72 mL PSA: 12/30/2024: 6.53 06/20/2024: 6.3 11/03/2023: 6.6 07/14/2023: 6.91 07/07/2019: 4.79 04/19/2013: 2.61 03/30/2012: 6.78 REVIEW OF SYSTEMS: A ROS was performed and pertinent negatives and positives can be found in the HPI. RELEVANT IMAGING STUDIES (most recent): MRI 3D POST PROCESSING Narrative: * * *Final Report* * * DATE OF EXAM: Apr 25 2024 12:00PM [facility] 0280 - MRI 3D POST PROCESSING / PROCEDURE REASON: Elevated PSA * * * * Physician Interpretation * * * * EXAMINATION: MRI PELVIS WITHOUT AND WITH IV CONTRAST (MULTIPARAMETRIC PROSTATE MRI) CLINICAL HISTORY: 68 years old being evaluated for prostate cancer. No prior biopsy. Previous biopsy: None reported PSA: 6.60 ng/mL (11/03/2023) 33% free; Prior therapy: None. TECHNIQUE: Multiparametric MRI of the prostate and pelvis performed on a 3T scanner utilizing phase pelvic coil. Sequences obtained: multiplanar T2-WI with small FOV; Axial DWI with multiple B-values and creation of ADC-maps; DCE T1-weighted images through the prostate obtained before, during and after the administration of intravenous gadolinium. THREE-DIMENSIONAL IMAGIND imaging including complex volumetric analysis of the prostate was performed on a dedicated stand-alone workstation by the interpreting physician, with images reviewed and archived. CONTRAST: IV: 14 cc of Dotarem. COMPARISON: None RESULT: Prostate: 6.3 x 5.6 x 5.5 cm Gland volume: 93 cc Post biopsy hemorrhage: Absent Peripheral zone: Linear and/or wedge-shaped T2/ADC map hypointensities (PI-RADS 2). Transition zone: Transition zone hypertrophy, without focal abnormalities suspicious for clinically significant disease (PI-RADS 1). Neurovascular bundle: Unremarkable. Seminal vesicles: Unremarkable. Adjacent Organ Involvement: Not applicable. Lymph nodes: No enlarged pelvic lymph nodes. Bladder: Unremarkable. Pelvic bones: No suspicious pelvic osseous lesions. Other Findings: Small fat-containing left inguinal hernia. Impression: IMPRESSION: No focal lesions suspicious for clinically significant prostate cancer (PI-RADS 2). No pelvic lymphadenopathy. No suspicious osseous lesions. ======== PI-QUAL v1: 3-3-3-5 Number of targets created for MR/US fusion biopsy: Peripheral zone: 0 Transition zone: 0 Platform used: [employer].comaCAD/Uronav If present, targets were numbered in order of level of suspicion for clinically significant prostate cancer (Grade Group 2 or higher). PI-RADS v2.1 Assessment Categories and clinically significant cancer detection rates (CDR): PI-RADS 1: Very low (CDR: 6%) PI-RADS 2: Low (CDR: 6%) PI-RADS 3: Intermediate (CDR: 20%) PI-RADS 4: High (CDR: 55%) PI-RADS 5: Very high (CDR: 83%) Source: Bernadine Rodriguez, et al. Update on PI-RADS Version 2.1 Diagnostic Performance Benchmarks for Prostate MRI: Systematic Review and [place]-Analysis. Radiology. 2023;3122):[id number] PMID: [id number]. Manager Spa: PSCB Transcribe Date/Time: May 03 2024 4:12P Dictated by : CAMDEN KHAN MD This examination was interpreted and the report reviewed and electronically signed by: CAMDEN KHAN MD on May 03 2024 4:18PM EST MRI PROSTATE WO/W IVCON Narrative: * * *Final Report* * * DATE OF EXAM: Apr 25 2024 12:00PM [facility] 0751 - MRI PROSTATE W/WO CONTRAST / PROCEDURE REASON: multiple diagnoses * * * * Physician Interpretation * * * * EXAMINATION: MRI PELVIS WITHOUT AND WITH IV CONTRAST (MULTIPARAMETRIC PROSTATE MRI) CLINICAL HISTORY: 68 years old being evaluated for prostate cancer. No prior biopsy. Previous biopsy: None reported PSA: 6.60 ng/mL (11/03/2023) 33% free; Prior therapy: None. TECHNIQUE: Multiparametric MRI of the prostate and pelvis performed on a 3T scanner utilizing phase pelvic coil. Sequences obtained: multiplanar T2-WI with small FOV; Axial DWI with multiple B-values and creation of ADC-maps; DCE T1-weighted images through the prostate obtained before, during and after the administration of intravenous gadolinium. THREE-DIMENSIONAL IMAGIND imaging including complex volumetric analysis of the prostate was performed on a dedicated stand-alone workstation by the interpreting physician, with images reviewed and archived. CONTRAST: IV: 14 cc of Dotarem. COMPARISON: None RESULT: Prostate: 6.3 x 5.6 x 5.5 cm Gland volume: 93 cc Post biopsy hemorrhage: Absent Peripheral zone: Linear and/or wedge-shaped T2/ADC map hypointensities (PI-RADS 2). Transition zone: Transition zone hypertrophy, without focal abnormalities suspicious for clinically significant disease (PI-RADS 1). Neurovascular bundle: Unremarkable. Seminal vesicles: Unremarkable. Adjacent Organ Involvement: Not applicable. Lymph nodes: No enlarged pelvic lymph nodes. Bladder: Unremarkable. Pelvic bones: No suspicious pelvic osseous lesions. Other Findings: Small fat-containing left inguinal hernia. Impression: IMPRESSION: No focal lesions suspicious for clinically significant prostate cancer (PI-RADS 2). No pelvic lymphadenopathy. No suspicious osseous lesions. ======== PI-QUAL v1: 3-3-3-5 Number of targets created for MR/US fusion biopsy: Peripheral zone: 0 Transition zone: 0 Platform used: DynaCAD/Uronav If present, targets were numbered in order of level of suspicion for clinically significant prostate cancer (Grade Group 2 or higher). PI-RADS v2.1 Assessment Categories and clinically significant cancer detection rates (CDR): PI-RADS 1: Very low (CDR: 6%) PI-RADS 2: Low (CDR: 6%) PI-RADS 3: Intermediate (CDR: 20%) PI-RADS 4: High (CDR: 55%) PI-RADS 5: Very high (CDR: 83%) Source: Bernadine Rodriguez et al. Update on PI-RADS Version 2.1 Diagnostic Performance Benchmarks for Prostate MRI: Systematic Review and [place]-Analysis. Radiology. 2023;312(3):[id number] PMID: [id number]. Manager Spa: PSCB Transcribe Date/Time: May 03 2024 4:12P Dictated by : CAMDEN KHAN MD This examination was interpreted and the report reviewed and electronically signed by: CAMDEN KHAN MD on May 03 2024 4:18PM EST LABS/INVESTIGATIONS: Urine Chemstrip: Lab Results Component Value Date GLUCOSE UA (POCT) Negative 01/05/2025 BILIRUBIN UA (POCT) Negative 01/05/2025 KETONE UA (POCT) Negative 01/05/2025 SPECIFIC GRAVITY UA (POCT) 1.025 01/05/2025 HEMOGLOBIN/BLOOD UA (POCT) Negative 01/05/2025 PH UA (POCT) 5.5 01/05/2025 PROTEIN UA (POCT) Trace (A) 01/05/2025 UROBILINOGEN UA (POCT) 0.2 01/05/2025 NITRITE UA (POCT) Negative 01/05/2025 LEUKOCYTES UA (POCT) Negative 01/05/2025 COLOR UA (POCT) Yellow 01/05/2025 CLARITY UA (POCT) Clear 01/05/2025 Creatinine Date Value Ref Range Status 12/30/2024 0.67 (L) 0.73 - 1.22 mg/dL Final 10/22/2024 0.77 0.73 - 1.22 mg/dL Final 09/29/2024 0.75 0.73 - 1.22 mg/dL Final 06/20/2024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 previous episode of vertigo 1-2 years ago, but without emesis this time. - Continuous feeling of being wobbly and off balance, even when standing still. - Symptoms improve when sitting but worsen with ambulation. - No recent illness or medication changes. - Denies syncope, palpitations, tinnitus, hearing loss, nausea, vision changes, fever, chills, headaches, or hematochezia. - Jing experienced a fall this morning due to imbalance; resumed using a cane for stability. - History of hip fracture a year ago, progressed from walker to cane, but had not used a cane in the past few months until today. PAST MEDICAL HISTORY Diagnosis Date Benign neoplasm of colon BPH without obstruction/lower urinary tract symptoms 04/01/2012 Carpal tunnel syndrome Degeneration of lumbar or lumbosacral intervertebral disc 05/02/2008 Elevated prostate specific antigen (PSA) 07/2023 Essential hypertension, benign Glaucoma Hemorrhage of rectum and anus Hyperplasia of prostate Primary hypertension Pure hypercholesterolemia Gets labs done at [facility] for MIQUEL Siddiqui Type II or unspecified type diabetes mellitus without mention of complication, uncontrolled Continues to follow with MIQUEL Siddiqui, [employer]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--gets labs through [facility] Unspecified glaucoma(365.9) ALLERGIES Patient has no known allergies. MEDICATIONS Current Outpatient Medications Medication Sig meclizine (ANTIVERT) 25 mg tab Take 1 tablet by mouth three times a day as needed (dizziness). albuterol HFA (VENTOLIN HFA) 90 mcg/actuation inhaler Inhale 2 puffs as instructed every 4 hours as needed for wheezing/shortness of breath (cough). benzonatate (TESSALON PERLE) 100 mg capsule Take 1-2 capsules by mouth three times a day as needed for cough. ondansetron orally disintegrating (ZOFRAN ODT) 4 mg disintegrating tablet Take 1 tablet by mouth every 6 hours as needed for nausea/vomiting. tamsulosin (FLOMAX) 0.4 mg Take 1 capsule by mouth two times a day. enalapril (VASOTEC) 20 mg tablet Take 1 tablet by mouth two times a day. flash glucose sensor (FREESTYLE LUIZA 2 SENSOR) kit Ust to check blood sugars once daily. Please apply free voucher for 1 sensor, pt to bring in insulin aspart U-100 (NOVOLOG FLEXPEN U-100 INSULIN) 100 unit/mL (3 mL) Inject 12 units before breakfast, 12 units before lunch, and 12 units before dinner as directed. Through [employer] Patient Assistance. metoprolol succinate ER (TOPROL XL) 50 mg 24 hr tablet Take 1 tablet by mouth two times a day. gabapentin (NEURONTIN) 300 mg capsule Take 1 capsule by mouth two times a day for 90 days. (Patient not taking: Reported on 02/21/2024) Cholecalciferol, Vitamin D3, 125 mcg (5,000 unit) cap Take 1 capsule by mouth once daily. inulin-chromium picolinate (FIBER SELECT GUMMIES) 2-100 gram-mcg chew Take 1 Dose by mouth once daily. dorzolamide HCl/timolol maleat (DORZOLAMIDE-TIMOLOL OPHTHALMIC) Use 1 Drop in both eyes two times a day. beta-carotene,A,-vits C,E/mins (OCUVITE ORAL) Take 1 tablet by mouth once daily. LATANOPROST, PF, OPHTHALMIC Use 1 Drop in both eyes every morning. simvastatin (ZOCOR) 40 mg tablet Take 1 tablet by mouth daily at bedtime. flash glucose scanning reader ([employer] LUIZA 2 READER) Use to check blood sugars once a day. insulin degludec (TRESIBA FLEXTOUCH U-100) 100 unit/mL (3 mL) injection pen Inject 20 Units subcutaneously every morning. Patient Assistance Medication (Patient taking differently: Inject 20 Units subcutaneously daily with dinner. Patient Assistance Medication) semaglutide (OZEMPIC) 1 mg/dose (4 mg/3 mL) pen Inject 1 mg subcutaneously one time a week. glucagon (GVOKE HYPOPEN 2-PACK) 0.5 mg/0.1 mL AutoInjector Use to treat severe hypoglycemic episode as recommend on product labeling. glucose 4 gram chewable tablet Take 4 tablets by mouth as needed. Insulin [place], Disposable, (BD ULTRA-FINE DONNIE PEN NEEDLE) 32 gauge x 5/32 Use as directed with insulin injections three times daily Insulin Syringe-Needle U-100 (BD INSULIN SYRINGE UF II) 0.5 mL 31 gauge x 5/16 syrg Use as directed with insulin injections three times daily Blood Sugar Diagnostic, Drum (ACCU-CHEK COMPACT TEST) Strp Testing 2-3 times daily (Patient taking differently: 4 strips four times daily.) l (more content not included)... [facility] 12-31-2024 History of Present illness Narrative 12/31/2024 Patient presents with: Dizziness: Reoccurrence Recording using [employer] software for draft documentation of the visit was discussed with the patient/authorized hospital insurance representative; all questions welcomed and answered. Patient/authorized hospital insurance representative agreed to proceed SUBJECTIVE: This is a 69 year old, accompanied by that is here today for Above Complaints. Dizziness and Imbalance: - Acute onset of dizziness and imbalance this morning upon getting out of bed. - Similar symptoms to a previous episode of vertigo 1-2 years ago, but without emesis this time. - Continuous feeling of being wobbly and off balance, even when standing still. - Symptoms improve when sitting but worsen with ambulation. - No recent illness or medication changes. - Denies syncope, palpitations, tinnitus, hearing loss, nausea, vision changes, fever, chills, headaches, or hematochezia. - Jing experienced a fall this morning due to imbalance; resumed using a cane for stability. - History of hip fracture a year ago, progressed from walker to cane, but had not used a cane in the past few months until today. PAST MEDICAL HISTORY Diagnosis Date Benign neoplasm of colon BPH without obstruction/lower urinary tract symptoms 04/01/2012 Carpal tunnel syndrome Degeneration of lumbar or lumbosacral intervertebral disc 05/02/2008 Elevated prostate specific antigen (PSA) 07/2023 Essential hypertension, benign Glaucoma Hemorrhage of rectum and anus Hyperplasia of prostate Primary hypertension Pure hypercholesterolemia Gets labs done at [facility] for MIQUEL Siddiqui Type II or unspecified type diabetes mellitus without mention of complication, uncontrolled Continues to follow with MIQUEL Siddiqui Y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--gets labs through [facility] Unspecified glaucoma(365.9) ALLERGIES Patient has no known allergies. MEDICATIONS Current Outpatient Medications Medication Sig meclizine (ANTIVERT) 25 mg tab Take 1 tablet by mouth three times a day as needed (dizziness). albuterol HFA (VENTOLIN HFA) 90 mcg/actuation inhaler Inhale 2 puffs as instructed every 4 hours as needed for wheezing/shortness of breath (cough). benzonatate (TESSALON PERLE) 100 mg capsule Take 1-2 capsules by mouth three times a day as needed for cough. ondansetron orally disintegrating (ZOFRAN ODT) 4 mg disintegrating tablet Take 1 tablet by mouth every 6 hours as needed for nausea/vomiting. tamsulosin (FLOMAX) 0.4 mg Take 1 capsule by mouth two times a day. enalapril (VASOTEC) 20 mg tablet Take 1 tablet by mouth two times a day. flash glucose sensor (FREESTYLE LUIZA 2 SENSOR) kit Ust to check blood sugars once daily. Please apply free voucher for 1 sensor, pt to bring in insulin aspart U-100 (NOVOLOG FLEXPEN U-100 INSULIN) 100 unit/mL (3 mL) Inject 12 units before breakfast, 12 units before lunch, and 12 units before dinner as directed. Through [employer] Patient Assistance. metoprolol succinate ER (TOPROL XL) 50 mg 24 hr tablet Take 1 tablet by mouth two times a day. gabapentin (NEURONTIN) 300 mg capsule Take 1 capsule by mouth two times a day for 90 days. (Patient not taking: Reported on 02/21/2024) Cholecalciferol, Vitamin D3, 125 mcg (5,000 unit) cap Take 1 capsule by mouth once daily. inulin-chromium picolinate (FIBER SELECT GUMMIES) 2-100 gram-mcg chew Take 1 Dose by mouth once daily. dorzolamide HCl/timolol maleat (DORZOLAMIDE-TIMOLOL OPHTHALMIC) Use 1 Drop in both eyes two times a day. beta-carotene,A,-vits C,E/mins (OCUVITE ORAL) Take 1 tablet by mouth once daily. LATANOPROST, PF, OPHTHALMIC Use 1 Drop in both eyes every morning. simvastatin (ZOCOR) 40 mg tablet Take 1 tablet by mouth daily at bedtime. flash glucose scanning reader (GeneAss[employer]STCabify LUIZA 2 READER) Use to check blood sugars once a day. insulin degludec (TRESIBA FLEXTOUCH U-100) 100 unit/mL (3 mL) injection pen Inject 20 Units subcutaneously every morning. Patient Assistance Medication (Patient taking differently: Inject 20 Units subcutaneously daily with dinner. Patient Assistance Medication) semaglutide (OZEMPIC) 1 mg/dose (4 mg/3 mL) pen Inject 1 mg subcutaneously one time a week. glucagon (GVOKE HYPOPEN 2-PACK) 0.5 mg/0.1 mL AutoInjector Use to treat severe hypoglycemic episode as recommend on product labeling. glucose 4 gram chewable tablet Take 4 tablets by mouth as needed. Insulin [place], Disposable, (BD ULTRA-FINE DONNIE PEN NEEDLE) 32 gauge x 5/32 Use as directed with insulin injections three times daily Insulin Syringe-Needle U-100 (BD INSULIN SYRINGE UF II) 0.5 mL 31 gauge x 5/16 syrg Use as directed with insulin injections three times daily Blood Sugar Diagnostic, Drum (ACCU-CHEK COMPACT TEST) Strp Testing 2-3 times daily (Patient taking differently: 4 strips four times daily.) lancets(FREESTYLE LANCETS) Use as directed. COSOPT 2 %-0.5 % EYE DROPS Use in eyes. ASPIRIN 81 MG TAB Take 81 mg by mouth once daily. B COMPLEX CAP Take 1 capsule by mouth once daily. MULTIVITAMIN TAB Take 1 tablet by mouth once daily. No current facility-administered medications for this visit. Medications and allergies reviewed by this provider. SOCIAL HISTORY Social History Tobacco Use Smoking status: Never Smokeless tobacco: Never Vaping Use Vaping status: Never Used Substance Use Topics Alcohol use: Not Currently Drug use: Never REVIEW OF SYSTEMS All other reviewed and negative other than HPI. OBJECTIVE: BP 136/82 Pulse 69 Resp 16 Wt 75.3 kg (166 lb) SpO2 96% BMI 26.00 kg/m . Vital signs reviewed by this provider. APPEARANCE Well appearing, alert, in no acute distress, well-hydrated, well nourished. EYES PERRLA, conjunctiva and sclera normal. EARS External ears normal, canals clear NECK Supple, no adenopathy; thyroid symmetric, normal size, no bruits HEART RRR with normal S1 and S2, no murmurs, no gallops, no JVD appreciated LUNG clear to auscultation. No wheezes, rhonchi or rales EXTREMITIES Extremities normal, No deformities, No skin discoloration, and No edema NEURO Awake, alert and oriented x 3, Cranial nerves II-XII grossly intact, Reflexes symmetrical, Normal gait, No involuntary motions., and negative findings: speech normal, mental status intact, Romberg negative, muscle tone normal, muscle strength normal, rapid alternating movements normal, finger to nose normal, reflexes normal and symmetric, plantar response downgoing bilaterally SKIN Skin color, texture, turgor normal, no suspicious rashes or lesions to exposed skin Negative Paulo-Hallpike Shingrix Vaccine(1 of 2) Never done Medicare Annual Wellness Visit Never done RSV Vaccine(1 - Risk 60-74 years 1-dose series) Never done DTaP,Tdap,Td Vaccine(2 - Td or Tdap) due on 04/01/2022 Advance Directive Discussion due on 07/23/2024 Diabetic Foot Exam due on 10/21/2024 Covid-19 Vaccine() due on 06/23/2025 Depression Screening due on 02/20/2025 Anxiety Screening due on 02/20/2025 HbA1C due on 04/01/2025 LDL Cholesterol due on 06/20/2025 Urine Albumin:Creatinine Ratio due on 10/22/2025 Annual PCP Team Chronic Disease Visit due on 10/22/2025 Dilated Retinal Exam due on 10/27/2025 Colorectal Cancer Screening due on 12/06/2028 Influenza Vaccine Completed Hepatitis C Screening Completed Pneumococcal Vaccine: 50+ Completed 1. Dizziness (R42) - Onset this morning, similar to previous episode of vertigo two years ago; no associated nausea, vomiting, tinnitus, or hearing loss. - No recent illness or medication changes; no syncope, palpitations, or vision changes reported. - Neurological exam normal; no nystagmus or symptoms elicited during Marshall-Hallpike maneuver. - Advised adequate hydration, especially in humid conditions. - Discussed potential for recurrence of vertigo and signs of stroke to monitor for, including confusion, vision changes, persistent vomiting, severe headache, unilateral weakness, slurred speech, and facial droop; instructed to seek emergency care if these symptoms occur. - Symptoms should improve over a few days to a week; if not, further investigation may be necessary. 2. Orthostatic hypotension (I95.1) - blood pressure was positive in office for this - discussed decreasing BP medication, patient would like to hold off on this at this time and see if it improves with the Antivert - discussed to changes positions slowly and stay well hydrated - follow-up with PCP if persists or go to ER as discussed in #1 Jud Albright APRN.YARD WORKER Prescription instructions reviewed with patient as applicable. Patient advised if symptoms do not improve or if symptoms worsen sooner, to contact their primary care physician. Potential red flag symptoms discussed with the patient. Reviewed appropriate action plan to take if red flag symptoms occur. Patient agreeable to treatment plan. Medical Decision Making: Problems: Low: Acute, uncomplicated illness or injury Risk: Moderate: Drug management Medical Decision Making Level: 3 - Low documented in this encounter [facility] 12-31-2024 Telephone encounter Note Patient's calling in and reports patient is having a vertigo flare. Having exact same sx's as he has had before when he had vertigo in the past. is requesting vertigo medication for patient/ This nurse advised appt since pt's PCP triad is not in the office today, for appropriate evaluation and treatment. agreeable. Appt made with available provider this morning. Dory Angulo RN [facility] 12-31-2024 Miscellaneous Notes Patient's calling in and reports patient is having a vertigo flare. Having exact same sx's as he has had before when he had vertigo in the past. is requesting vertigo medication for patient/ This nurse advised appt since pt's PCP triad is not in the office today, for appropriate evaluation and treatment. agreeable. Appt made with available provider this morning. Dory Angulo RN documented in this encounter [facility] 12-26-2024 Telephone encounter Note Pts called in trying to get Pts Flomax refilled. I let her know it was just called in on 11/03/24, and it would be good through 11/03/25. I let her know he could have been using an old bottle and may not have started the new RX. David Mancini RN [facility] 12-26-2024 Miscellaneous Notes Pts called in trying to get Pts Flomax refilled. I let her know it was just called in on 11/03/24, and it would be good through 11/03/25. I let her know he could have been using an old bottle and may not have started the new RX. David Mancini RN documented in this encounter [facility] 12-24-2024 Telephone encounter Note Pt noted the novalog vials were sent. This is to be flex pens. Pt doesn't want the vials. In review pt is correct per application it notes to be flex pens. Called [facility]. [facility] will fax to this office a return shipping label.to be rec'd in 3-5 business days. They will send to the pharmacy the novolog flex pens to be rec'd in 10-14 days. Pt says he can wait for the novolog flex pens. He has enough. Everything else was picked up. [facility] 12-23-2024 Telephone encounter Note This is ready for pick and shovel man on the second floor. Pt notified. [facility] 12-23-2024 Telephone encounter Note 1.Rec'd 5 boxes of mike fine 32Gtip 100 needles in each box Lot number [id number] exp date 04/21/29 2. Rec'd 4 boxes of ozempic 1mg/dose 4mg/3ml pen lot number [id number] exp date 05/22/27 3. Rec'd 2 boxes of tresiba u100 flexpens lot number is exp date 03/22/27 4 rec'd 5 boxes of novolog u100 lot number [id number] and exp date 09/19/26 [facility] 11-17-2024 Note HNO ID: [id number] Author: JOSSY CARUSO APRN.CA[employer]RY SCOUT Service: ? Author Type: Nurse Specialist Type: Progress Notes Filed: 11/17/2024 11:57 Note Text: SUBJECTIVE Jing Mckeon is a 69 year old male who presents with 4 days of symptoms that are stable. Symptoms include: Fever (>=100.4F): Yes perceived or Chills: Yes Cough: Yes difficult to control, some wheezing, some purulent sputum Shortness of breath: No or Difficulty breathing: No Fatigue: Yes Muscle aches: No Headache: No New loss of smell or taste: No Sore throat: Yes Nasal congestion: No or Rhinorrhea: No Nausea: Yes or Vomiting: Yes x 1 with coughing Diarrhea: No, 1 loose stool per day Acute Cough and Wheezing: - Onset , progressively worsening over the weekend. - Intermittent coughing spells, difficult to control. - Wheezing noted during coughing episodes. - Coughing spells cause dyspnea; denies dyspnea otherwise. - Coughing episodes disrupt sleep. - Using NyQuil, Tylenol, and Mucinex with minimal relief. - Denies smoking. - Has an albuterol inhaler at home but has not used it recently. Nausea and Vomiting: - Nausea x3 days. - Vomited once this morning after eating breakfast and lying down, triggered by coughing. - Decreased appetite; maintaining adequate hydration. Diarrhea: - Loose stools x3 days, 1 bowel movement per day. - No bowel movement today. Sore Throat: - Mild sore throat. - Denies sinus drainage or congestion. Fatigue: - Reports feeling fatigued. - Denies headaches or myalgias. Diabetes Mellitus: - Holding diabetes medications when not eating to prevent hypoglycemia. OTC meds/remedies that patient has tried: acetaminophen, Mucinex, and OTC cold medicine. High risk category assessment Age > 60 years old Diabetes Exposures: Sick contacts? Yes Family or close contacts with confirmed/probable COVID-19 in last 14 days? No He reports that he has never smoked. He has never used smokeless tobacco. ROS Constitutional: (-) fever, (+) night sweats, (+) fatigue Head: (-) headache Ears/Nose/Mouth/Throat: (+) sore throat, (-) congestion Respiratory: (+) cough, (+) wheezing, (+) shortness of breath Gastrointestinal: (+) nausea, (+) vomiting, (+) diarrhea Musculoskeletal: (-) myalgia OBJECTIVE PHYSICAL EXAM: BP 137/66 Pulse 86 Temp 37 ?C (98.6 ?F) Resp 16 Wt 75 kg (165 lb 5.5 oz) SpO2 96% BMI 25.90 kg/m? General appearance: tired/ill appearing, alert, cooperative, pleasant, in no acute distress Head: Normocephalic Eyes: conjunctiva/corneas normal Ears: R TM - clear with good landmarks, nl light reflex, L TM - clear with good landmarks, nl light reflex Nose: clear rhinorrhea Oropharynx: moist without lesions, mild erythema to GPA, no exudate Neck: supple and small, benign anterior cervical nodes bilaterally Heart: regular rate and rhythm, without murmur Lungs: clear to auscultation, without rales or wheeze, good air exchange ASSESSMENT/PLAN (J32.9, J40) Sinobronchitis (primary encounter diagnosis) (J98.01) Bronchospasm (R11.0) Nausea (E11.9) Type 2 diabetes mellitus without complication, unspecified whether computer terminal operator insulin use (HCC) Use your albuterol inhaler every 4 to 6 hours when you experience wheezing, coughing spells, or shortness of breath. Take the prescribed cough suppressant pill as directed to help manage severe coughing episodes. Begin taking the nausea medicine around the clock for a couple of days until your stomach settles and you can keep food down. Continue using your current cold medicines (such as NyQuil, Tylenol, and Mucinex) if they seem to be helping. Follow your usual routine with your diabetes medications by not taking them when you are not eating, to avoid low blood sugar. Monitor your symptoms closely. If you are not feeling better or if your symptoms worsen within about a week from start of illness, please call our office. Jossy Caruso APRN.[employer]OUT Medical Decision Making: Problems: Low: Acute, uncomplicated illness or injury Risk: Moderate: Drug management Medical Decision Making Level: 3 - Low [facility] 11-03-2024 Instructions Marcella Gee APRN.YARD WORKER, LIZZ - 11/03/2024 9:59 AM EDT We discussed your benign prostatic hyperplasia (BPH): - Your elevated PSA level is likely due to the size of your prostate, as confirmed by your MRI, which showed no evidence of prostate cancer. - You are currently taking Flomax (tamsulosin) to help relax the prostate tissue and improve urination. I have refilled your Flomax prescription for one year. Continue taking one capsule in the morning and one at bedtime as you have been. - You expressed that you are not interested in adding another medication, such as ProScar (finasteride), at this time. We discussed potential surgical options for managing your BPH: - I will refer you to Dr. Mckeon, a urologist in [place], for a consultation. He specializes in minimally invasive procedures for BPH, including: - The Holep procedure, which uses a laser to remove the inner core of the prostate while leaving the outer shell intact. - The ITIND procedure, which involves placing a temporary stent in the urethra to widen the prostate opening and improve symptoms. - Dr. Mckeon will review your imaging and may recommend additional testing, such as a cystoscopy, to evaluate the size and shape of your prostate. He will discuss whether you are a candidate for these or other procedures and help you decide on the best course of action. We discussed scheduling your consultation: - Dr. Mckeon s first available appointment is on January 05 in [place]. I have noted your preference for a Sunday or Sunday appointment to accommodate your s schedule. - At this visit, Dr. Mckeon will review your imaging and discuss your options. No procedures will be performed during this initial consultation. We discussed follow-up testing: - You are due for a repeat PSA test please repeat on November 20, as your last one was in May. Please schedule this test at your convenience. Preparation for a Prostate-Specific Antigen (PSA) Blood Test The PSA blood test is a routine screening test for prostate cancer. While there is typically no special preparation required, here are some general guidelines to ensure accurate results: 1. Do not have your PSA level checked if you have had a recent urinary tract infection or prostate procedure within the past 30 days. 2. Avoid Sexual Activity: Refrain from ejaculation for 48 hours before the test. This is because sexual activity can temporarily increase PSA levels. 3. Avoid Strenuous Exercise: Avoid vigorous exercise for 24 hours before the test, as it can also raise PSA levels. Let us know if you have any questions or concerns before your consultation. documented in this encounter [facility] 11-03-2024 History of Present illness Narrative [facility] PSA/PROSTATE EVALUATION HISTORY AND PHYSICAL EXAM PATIENT: Jing Mckeon (68 year old) 09/17/2023 PCP: Son Zambrano MD REFERRING Provider: Mary Witt APRN.YARD WORKER Consultation requested by Dr. Mary Witt [id number] [facility] [id number] for an opinion regarding elevated PSA and my final recommendations will be communicated back to the requesting physician by way of shared Medical record or letter via US mail. CC: Elevated PSA HPI: The patient is 68 year old and is referred for evaluation of elevated PSA. Last PSA was noted to be 6.30 ng/mL. Prior studies include 6.91. Hx of BPH: On Flomax 0.8mg. Has been on Flomax for 10+ years. CT of pelvis from 2005 shows: The prostate is enlarged measuring approximately 4.1 x 6.2 cm in the axial plane. PSA was elevated. MRI of prostate in April 2024 was negative for mass or lesion. Size of prostate on the MRI: Prostate: 6.3 x 5.6 x 5.5 cm, Gland volume: 93 cc. No fhx of cancers - Renal, bladder or prostate Today: The patient has been experiencing symptoms of BPH and is currently taking Flomax, 2 capsules daily, one in the morning and one at bedtime, which has improved his symptoms. . Recent MRI results showed no evidence of mass or lesion, and the elevated PSA levels are attributed to the size of the prostate. The patient expresses a preference for not adding another medication, such as finasteride, and is open to consulting with a specialist about minimally invasive surgical options. URINARY: PRESENTING HISTORY: Hematuria: none Urinary retention: no Urinary incontinence: no Urinary tract infection: no Patient Entered Questionnaires: PROMIS Global Health Percentiles provide an indication of how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 occasional coughing after eating large meals. He also denies dysphagia, leg cramping, or muscle spasms, but notes a persistent limp since an injury in December, which he attributes to muscle tightness. Jing reports difficulty with both sleep onset and maintenance, requiring melatonin for assistance. Despite this, he often sleeps 10+ hours per night but still wakes up feeling tired. He denies any history of snoring, apnea, or restless leg syndrome. He also denies symptoms of hypoglycemia, such as shakiness or syncope, since using the FreeStyle Luiza CGM, which alerts him to low blood glucose levels before they become severe. He carries glucose tablets, orange juice, and candy bars for management of hypoglycemia. Recent lab results show an improved HbA1c of 7.8%. Previous labs from May revealed a slightly elevated PSA, for which he has a follow-up appointment with a urologist later this month. Cholesterol levels were within normal limits, with triglycerides at 95 mg/dL, HDL at 59 mg/dL, and LDL at 76 mg/dL. There was a minimal increase in proteinuria, with a level of 33 mg/dL. Blood glucose was 210 mg/dL, and kidney function was reported as normal. Alkaline phosphatase levels were slightly elevated. Jing denies any symptoms of hypoglycemia, such as shakiness or syncope, since using the FreeStyle Luiza CGM, which alerts him to low blood glucose levels before they become severe. He carries glucose tablets, orange juice, and candy bars for management of hypoglycemia. PAST MEDICAL HISTORY Diagnosis Date Benign neoplasm of colon BPH without obstruction/lower urinary tract symptoms 04/01/2012 Carpal tunnel syndrome Degeneration of lumbar or lumbosacral intervertebral disc 05/02/2008 Elevated prostate specific antigen (PSA) 07/2023 Essential hypertension, benign Glaucoma Hemorrhage of rectum and anus Hyperplasia of prostate Primary hypertension Pure hypercholesterolemia Gets labs done at [facility] for MIQUEL Siddiqui Type II or unspecified type diabetes mellitus without mention of complication, uncontrolled Continues to follow with MIQUEL Siddiqui CNP/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--gets labs through [facility] Unspecified glaucoma(365.9) Current Outpatient Medications Medication Sig insulin aspart U-100 (NOVOLOG FLEXPEN U-100 INSULIN) 100 unit/mL (3 mL) Inject 12 units before breakfast, 12 units before lunch, and 12 units before dinner as directed. Through [employer] Patient Assistance. metoprolol succinate ER (TOPROL XL) 50 mg 24 hr tablet Take 1 tablet by mouth two times a day. gabapentin (NEURONTIN) 300 mg capsule Take 1 capsule by mouth two times a day for 90 days. (Patient not taking: Reported on 02/21/2024) Cholecalciferol, Vitamin D3, 125 mcg (5,000 unit) cap Take 1 capsule by mouth once daily. inulin-chromium picolinate (FIBER SELECT GUMMIES) 2-100 gram-mcg chew Take 1 Dose by mouth once daily. flash glucose sensor (FREESTYLE LUIZA 2 SENSOR) kit Ust to check blood sugars once daily. Please apply free voucher for 1 sensor, pt to bring in dorzolamide HCl/timolol maleat (DORZOLAMIDE-TIMOLOL OPHTHALMIC) Use 1 Drop in both eyes two times a day. beta-carotene,A,-vits C,E/mins (OCUVITE ORAL) Take 1 tablet by mouth once daily. LATANOPROST, PF, OPHTHALMIC Use 1 Drop in both eyes every morning. tamsulosin (FLOMAX) 0.4 mg Take 2 capsules by mouth daily at bedtime. (Patient taking differently: Take 0.4 mg by mouth two times a day.) simvastatin (ZOCOR) 40 mg tablet Take 1 tablet by mouth daily at bedtime. enalapril (VASOTEC) 20 mg tablet Take 1 tablet by mouth two times a day. flash glucose scanning reader ([employer] LUIZA 2 READER) Use to check blood sugars once a day. insulin degludec (TRESIBA FLEXTOUCH U-100) 100 unit/mL (3 mL) injection pen Inject 20 Units subcutaneously every morning. Patient Assistance Medication (Patient taking differently: Inject 20 Units subcutaneously daily with dinner. Patient Assistance Medication) semaglutide (OZEMPIC) 1 mg/dose (4 mg/3 mL) pen Inject 1 mg subcutaneously one time a week. meclizine (ANTIVERT) 25 mg tab Take 1 tablet by mouth three times daily as needed (dizziness). glucagon (GVOKE HYPOPEN 2-PACK) 0.5 mg/0.1 mL AutoInjector Use to treat severe hypoglycemic episode as recommend on product labeling. (Patient not taking: Reported on 03/19/2023) glucose 4 gram chewable tablet Take 4 tablets by mouth as needed. Insulin [place], Disposable, (BD ULTRA-FINE DONNIE PEN NEEDLE) 32 gauge x 5/32 Use as directed with insulin injections three times daily albuterol HFA (VENTOLIN HFA) 90 mcg/actuation inhaler Inhale 2 Puffs as instructed every 4 hours as needed for Wheezing/Shortness of Breath. Insulin Syringe-Needle U-100 (BD INSULIN SYRINGE UF II) 0.5 mL 31 gauge x 5/16 syrg Use as directed with insulin injections three times daily Blood Sugar Diagnostic, Drum (ACCU-CHEK COMPACT TEST) Strp Testing 2-3 times daily (Patient taking differently: 4 Strips four times daily.) lancets(Levels BeyondYLE LANCETS) Use as directed. (Patient not taking: Reported on 09/17/2023) COSOPT 2 %-0.5 % EYE DROPS Use in eyes. ASPIRIN 81 MG TAB Take 81 mg by mouth once daily. B COMPLEX CAP Take 1 capsule by mouth once daily. MULTIVITAMIN TAB Take 1 tablet by mouth once daily. No current facility-administered medications for this visit. Review of Systems Objective BP 124/64 Pulse 76 Temp 36.1 C (97 F) (Left Tympanic) Resp 16 Wt 76.5 kg (168 lb 10.4 oz) BMI 26.41 kg/m Physical Exam Vitals reviewed. Constitutional: Appearance: Normal appearance. Eyes: Conjunctiva/sclera: Conjunctivae normal. Cardiovascular: Rate and Rhythm: Normal rate and regular rhythm. Heart sounds: Normal heart sounds. Pulmonary: Effort: Pulmonary effort is normal. Breath sounds: Normal breath sounds. Musculoskeletal: Right lower leg: No edema. Left lower leg: No edema. Skin: General: Skin is warm and dry. Neurological: General: No focal deficit present. Mental Status: He is alert and oriented to person, place, and time. Psychiatric: Mood and Affect: Mood normal. Behavior: Behavior normal. Thought Content: Thought content normal. Judgment: Judgment normal. Assessment and Plan # Type 2 diabetes mellitus with microalbuminuria, with long-term current use of insulin (HCC) (E11.29) # Hypoglycemia (E16.2) - Recent A1c improved to 7.8%. - Previous glucose level was 210 mg/dL. - Microalbuminuria noted with protein level at 33 mg/dL (normal <30 mg/dL). - Nocturnal hypoglycemia episodes managed with FreeStyle Luiza CGM; patient educated on maintaining glucose levels with glucose tablets and juice. - Ordered urine test to monitor microalbuminuria. - Refilled FreeStyle Luiza sensors. # Fatigue, unspecified type (R53.83) # Daytime sleepiness (R40.0) - Fatigue and excessive daytime sleepiness over the past couple of months; sleeps 10+ hours but still feels tired. - Differential diagnoses include anemia, thyroid dysfunction, electrolyte imbalances, and vitamin D deficiency. - Ordered CBC, CMP, TSH, magnesium level, and vitamin D level. - Discussed potential need for sleep study if labs are inconclusive. # Elevated alkaline phosphatase level (R74.8) - Previous alk phos level elevated. - Ordered alk phos isoenzyme test to determine the source (bone, liver, or bowel). # Pure hypercholesterolemia (E78.00) - Previous labs showed triglycerides at 95 mg/dL, HDL at 59 mg/dL, and LDL at 76 mg/dL. - Continue current management. # Primary hypertension (I10) - Refilled Enalapril prescription. # Vitamin D deficiency (E55.9) - History of low vitamin D levels (21 ng/mL). - Ordered vitamin D level to assess current status. Son Zambrano MD documented in this encounter [facility] 10-16-2024 Telephone encounter Note Pt has picked this up. [facility] 10-16-2024 Miscellaneous Notes Pt has picked this up. Pt notified. This is in the fridge on the left side. Re'cd 3 boxes of mike nordisk 3 boxes of novolog flex pen units 100 5X3ml prefilled pens Lot number Exp date 10/20/2026. documented in this encounter [facility] 10-15-2024 Telephone encounter Note Pt notified. This is in the fridge on the left side. [facility] 10-15-2024 Telephone encounter Note Re'cd 3 boxes of mike nordisk 3 boxes of novolog flex pen units 100 5X3ml prefilled pens Lot number Exp date 10/20/2026. [facility] 10-03-2024 Progress note Formatting of t his note might be different from the original. See OV note / [facility] 10-03-2024 Miscellaneous Notes See OV note 3/ documented in this encounter [facility] 10-03-2024 Telephone encounter Note Form printed and completed and faxed back as requested below. [facility] 10-03-2024 Miscellaneous Notes Form printed and completed and faxed back as requested below. Once signed by provider please fax forms back to Patient Assistance Team ATTN : Piedad at [phone]. PLEASE DO NOT FAX TO MIKE NORDISK. Provider portion of patient assistance Mike Nordisk medication change forms (Novolog Flexpens) have been scanned to patient documents. Patient Assistance Team is asking that forms be printed at office for Dr Zambrano to review and sign. Thank You! Brandon Rios CPhT E-Mail : Phone : [phone] Fax : [phone] Patient Assistance Team received message that patient first shipment of assistance medications Novolog vials were sent instead of selected product on application Novolog Flexpens. Pre-filled in medication change forms 10/03/2024. Will scan in & route to provider to sign. Brandon Rios CPhT E-Mail : Phone : [phone] Fax : [phone] documented in this encounter [facility] 10-03-2024 Telephone encounter Note Once signed by provider please fax forms back to Patient Assistance Team ATTN : Piedad at [phone]. PLEASE DO NOT FAX TO MIKE NORDISK. Provider portion of patient assistance Mike Nordisk medication change forms (Novolog Flexpens) have been scanned to patient documents. Patient Assistance Team is asking that forms be printed at office for Dr Zambrano to review and sign. Thank You! Brandon Rios CPhT E-Mail : [email or web address] Phone : [phone] Fax : [phone] [facility] 10-03-2024 Telephone encounter Note Patient Assistance Team received message that patient first shipment of assistance medications Novolog vials were sent instead of selected product on application Novolog Flexpens. Pre-filled in medication change forms 10/03/2024. Will scan in & route to provider to sign. Brandon Rios CPhT E-Mail : [email or web address] Phone : [phone] Fax : [phone] [facility] 10-02-2024 History of Present illness Narrative Images from the original note were not included. Primary Care Pharmacy Visit CC (Reason for Consult): (E11.29, R80.9, Z79.4) Type 2 diabetes mellitus with microalbuminuria, with long-term current use of insulin (HCC) (primary encounter diagnosis) Goal(s): A1c <8% Last Collaborating Provider Visit: 06/23/24 with Jossy Caruso CNP Jing Mckeon is a 69 year old male presenting for follow up visit in person. Patient consents to pharmacy collaborative practice agreement. Last Pharmacy Visit: 07/03/24 Interim Events: - 09/29/24 A1c results - improvement from 8.2% to 7.8% HPI: Reports doing well States BGs have still been up and down, most of the time he's in [place] Reports has had a couple lows but nothing of concerns, thinks some are not accurate overnight States they sent him Novolog vials instead of the pens which is how he was getting previously; has the syringes to use up supply but would prefer to go back to pens Current DM Medications: Ozempic 1 mg once weekly on Mondays Tresiba 20 units once daily at bedtime Novolog 10 units with breakfast, 10 units with lunch, 12 units with dinner - taking 12 units with meals Diet Denies any recent changes Breakfast 8-10a Lunch 12-1p Dinner 530-630p GLYCEMIC CONTROL: Glucometer present at visit: Yes - FSL2 reader (gets sensors through [employer]) Hypoglycemia: Yes CGM Data Past medical history reviewed. ALLERGIES No Known Allergies Current Outpatient Medications Medication Sig Dispense Refill metoprolol succinate ER (TOPROL XL) 50 mg 24 hr tablet Take 1 tablet by mouth two times a day. 60 tablet 5 gabapentin (NEURONTIN) 300 mg capsule Take 1 capsule by mouth two times a day for 90 days. (Patient not taking: Reported on 02/21/2024) 60 capsule 2 Cholecalciferol, Vitamin D3, 125 mcg (5,000 unit) cap Take 1 capsule by mouth once daily. inulin-chromium picolinate (FIBER SELECT GUMMIES) 2-100 gram-mcg chew Take 1 Dose by mouth once daily. flash glucose sensor (FREESTYLE LUIZA 2 SENSOR) kit Ust to check blood sugars once daily. Please apply free voucher for 1 sensor, pt to bring in 6 Each 3 dorzolamide HCl/timolol maleat (DORZOLAMIDE-TIMOLOL OPHTHALMIC) Use 1 Drop in both eyes two times a day. beta-carotene,A,-vits C,E/mins (OCUVITE ORAL) Take 1 tablet by mouth once daily. LATANOPROST, PF, OPHTHALMIC Use 1 Drop in both eyes every morning. tamsulosin (FLOMAX) 0.4 mg Take 2 capsules by mouth daily at bedtime. (Patient taking differently: Take 0.4 mg by mouth two times a day.) 180 capsule 3 simvastatin (ZOCOR) 40 mg tablet Take 1 tablet by mouth daily at bedtime. 90 tablet 3 enalapril (VASOTEC) 20 mg tablet Take 1 tablet by mouth two times a day. 180 tablet 3 flash glucose scanning reader (GeneAssessSTYLE LUIZA 2 READER) Use to check blood sugars once a day. 1 Each 0 insulin aspart U-100 (NOVOLOG FLEXPEN U-100 INSULIN) 100 unit/mL (3 mL) Inject 10 units before breakfast, 10 units before lunch, and 12 units before dinner as directed. Through [employer] Patient Assistance. insulin degludec (TRESIBA FLEXTOUCH U-100) 100 unit/mL (3 mL) injection pen Inject 20 Units subcutaneously every morning. Patient Assistance Medication (Patient taking differently: Inject 20 Units subcutaneously daily with dinner. Patient Assistance Medication) semaglutide (OZEMPIC) 1 mg/dose (4 mg/3 mL) pen Inject 1 mg subcutaneously one time a week. meclizine (ANTIVERT) 25 mg tab Take 1 tablet by mouth three times daily as needed (dizziness). 30 tablet 1 glucagon (GVOKE HYPOPEN 2-PACK) 0.5 mg/0.1 mL AutoInjector Use to treat severe hypoglycemic episode as recommend on product labeling. (Patient not taking: Reported on 03/19/2023) 0.2 mL 3 glucose 4 gram chewable tablet Take 4 tablets by mouth as needed. 30 tablet 2 Insulin [place], Disposable, (BD ULTRA-FINE DONNIE PEN NEEDLE) 32 gauge x 5/32 Use as directed with insulin injections three times daily 100 Each 11 albuterol HFA (VENTOLIN HFA) 90 mcg/actuation inhaler Inhale 2 Puffs as instructed every 4 hours as needed for Wheezing/Shortness of Breath. 18 g 3 Insulin Syringe-Needle U-100 (BD INSULIN SYRINGE UF II) 0.5 mL 31 gauge x 5/16 syrg Use as directed with insulin injections three times daily 300 Syringe 3 Blood Sugar Diagnostic, Drum (ACCU-CHEK COMPACT TEST) Strp Testing 2-3 times daily (Patient taking differently: 4 Strips four times daily.) 306 Strip 3 lancets(FREESTYLE LANCETS) Use as directed. (Patient not taking: Reported on 09/17/2023) 300 3 COSOPT 2 %-0.5 % EYE DROPS Use in eyes. 0 ASPIRIN 81 MG TAB Take 81 mg by mouth once daily. 0 B COMPLEX CAP Take 1 capsule by mouth once daily. 0 MULTIVITAMIN TAB Take 1 tablet by mouth once daily. 0 No current facility-administered medications for this visit. Pill bottles are not present. Adherence: denies missed doses. Rx coverage: Payor: MEDICARE / Plan: MEDICARE A AND B / Product Type: Medicare / Medications affordable? Enrolled in [employer] PAP (Tresiba, Novolog and Ozempic) Patient Assistance Programs being utilized: PAP Company Medication Status Renewal Due Where Delivered Mike Nordisk Tresiba U100 Approved 07/22/25 [place] [employer] Novolog Approved 07/22/25 [place] [employer]TM Ozempic 1 mg Approved 07/22/25 [employer] [employer] Pen needles Approved 07/22/25 [employer] PHARMACOTHERAPY PREVENTATIVE MEDS: On LARA/ARB: Yes On Statin: Yes On ASA: Yes EXAM: There were no vitals taken for this visit. Last 3 Encounter BP Readings: Date: BP: 06/23/2024 127/72 02/21/2024 126/78 01/15/2024 124/60 Wt: 76.2 kg (167 lb 15.9 oz) BMI: 26.31 kg/(m^2) LABS: Lab Results Component Value Date HBA1C 7.8 09/29/2024 HBA1C 8.2 06/20/2024 HBA1C 7.4 11/03/2023 HBA1C 7.7 06/27/2021 HBA1C 9.3 11/01/2020 HBA1C 10.0 11/08/2019 Glucose 179 09/29/2024 BUN 16 09/29/2024 Creatinine 0.75 09/29/2024 NA 138 09/29/2024 K 4.1 09/29/2024 Chloride 104 09/29/2024 CO2 24 09/29/2024 Protein, Total 7.0 09/29/2024 Albumin 4.0 09/29/2024 Calcium 9.5 09/29/2024 Alk Phos Total 143 09/29/2024 Bilirubin, Total 0.4 09/29/2024 AST (SGOT) 20 09/29/2024 ALT (SGPT) 16 09/29/2024 Lab Results Component Value Date CHOL 154 06/20/2024 CHOL 149 06/27/2021 LDL 76 06/20/2024 LDL 67 06/27/2021 HDL 59 06/20/2024 HDL 62 06/27/2021 TG 95 06/20/2024 TG 102 06/27/2021 Albumin/Creat Ratio (mg/g) Date Value 06/20/2024 33 (H) eGFR-All Other Races (.) Date Value 06/27/2021 >60 Estimated Glomerular Filtration Rate (mL/min/1.73m ) Date Value 09/29/2024 96 ASSESSMENT/PLAN: 1. Type 2 diabetes mellitus with microalbuminuria, with long-term current use of insulin (HCC) - ICD9: 250.40, 791.0, V58.67, ICD10: E11.29, R80.9, Z79.4 - Controlled - Continue current medications (updated Novolog dose to reflect as patient taking) - Statin prescribed - simvastatin - Blood glucose monitoring on a continuous glucose monitoring schedule - Counseled on healthy diet and regular exercise - Discussed diabetic education issues of hypoglycemic/hyperglycemic symptoms - Follow up in 3 months, sooner should any other issues arise. Overdue Diabetes Health Maintenance: Health Maintenance - Diabetes Topic Date Due Diabetic Foot Exam 10/21/2024 Follow Up: Next PCP visit: 10/22/24 Next PharmD visit: 01/01/25 Jessica Ricks, Chantelle, BCACP Primary Care Clinical Cylinder Valve Repairer I spent a total of 20 minutes on the date of the service which included preparing to see the patient, [id number] patient care, completing clinical documentation, and counseling and educating the patient/family/caregiver. documented in this encounter [facility] 10-02-2024 Note HNO ID: [id number] Author: JESSICA RICKS RPh Service: ? Author Type: Pharmacist Type: Progress Notes Filed: 10/02/2024 16:25 Note Text: Primary Care Pharmacy Visit CC (Reason for Consult): (E11.29, R80.9, Z79.4) Type 2 diabetes mellitus with microalbuminuria, with long-term current use of insulin (HCC) (primary encounter diagnosis) Goal(s): A1c <8% Last Collaborating Provider Visit: 06/23/24 with Jossy Caruso CNP Jing Mckeon is a 69 year old male presenting for follow up visit in person. Patient consents to pharmacy collaborative practice agreement. Last Pharmacy Visit: 07/03/24 Interim Events: - 09/29/24 A1c results - improvement from 8.2% to 7.8% HPI: Reports doing well States BGs have still been up and down, most of the time he's in [place] Reports has had a couple lows but nothing of concerns, thinks some are not accurate overnight States they sent him Novolog vials instead of the pens which is how he was getting previously; has the syringes to use up supply but would prefer to go back to pens Current DM Medications: Ozempic 1 mg once weekly on Mondays Tresiba 20 units once daily at bedtime Novolog 10 units with breakfast, 10 units with lunch, 12 units with dinner - taking 12 units with meals Diet Denies any recent changes Breakfast 8-10a Lunch 12-1p Dinner 530-630p GLYCEMIC CONTROL: Glucometer present at visit: Yes - FSL2 reader (gets sensors through [employer]) Hypoglycemia: Yes CGM Data Past medical history reviewed. ALLERGIES No Known Allergies Current Outpatient Medications Medication Sig Dispense Refill metoprolol succinate ER (TOPROL XL) 50 mg 24 hr tablet Take 1 tablet by mouth two times a day. 60 tablet 5 gabapentin (NEURONTIN) 300 mg capsule Take 1 capsule by mouth two times a day for 90 days. (Patient not taking: Reported on 02/21/2024) 60 capsule 2 Cholecalciferol, Vitamin D3, 125 mcg (5,000 unit) cap Take 1 capsule by mouth once daily. inulin-chromium picolinate (FIBER SELECT GUMMIES) 2-100 gram-mcg chew Take 1 Dose by mouth once daily. flash glucose sensor (FREESTYLE LUIZA 2 SENSOR) kit Ust to check blood sugars once daily. Please apply free voucher for 1 sensor, pt to bring in 6 Each 3 dorzolamide HCl/timolol maleat (DORZOLAMIDE-TIMOLOL OPHTHALMIC) Use 1 Drop in both eyes two times a day. beta-carotene,A,-vits C,E/mins (OCUVITE ORAL) Take 1 tablet by mouth once daily. LATANOPROST, PF, OPHTHALMIC Use 1 Drop in both eyes every morning. tamsulosin (FLOMAX) 0.4 mg Take 2 capsules by mouth daily at bedtime. (Patient taking differently: Take 0.4 mg by mouth two times a day.) 180 capsule 3 simvastatin (ZOCOR) 40 mg tablet Take 1 tablet by mouth daily at bedtime. 90 tablet 3 enalapril (VASOTEC) 20 mg tablet Take 1 tablet by mouth two times a day. 180 tablet 3 flash glucose scanning reader (FREESTYLE LUIZA 2 READER) Use to check blood sugars once a day. 1 Each 0 insulin aspart U-100 (NOVOLOG FLEXPEN U-100 INSULIN) 100 unit/mL (3 mL) Inject 10 units before breakfast, 10 units before lunch, and 12 units before dinner as directed. Through [employer] Patient Assistance. insulin degludec (TRESIBA FLEXTOUCH U-100) 100 unit/mL (3 mL) injection pen Inject 20 Units subcutaneously every morning. Patient Assistance Medication (Patient taking differently: Inject 20 Units subcutaneously daily with dinner. Patient Assistance Medication) semaglutide (OZEMPIC) 1 mg/dose (4 mg/3 mL) pen Inject 1 mg subcutaneously one time a week. meclizine (ANTIVERT) 25 mg tab Take 1 tablet by mouth three times daily as needed (dizziness). 30 tablet 1 glucagon (GVOKE HYPOPEN 2-PACK) 0.5 mg/0.1 mL AutoInjector Use to treat severe hypoglycemic episode as recommend on product labeling. (Patient not taking: Reported on 03/19/2023) 0.2 mL 3 glucose 4 gram chewable tablet Take 4 tablets by mouth as needed. 30 tablet 2 Insulin [place], Disposable, (BD ULTRA-FINE DONNIE PEN NEEDLE) 32 gauge x 5/32 Use as directed with insulin injections three times daily 100 Each 11 albuterol HFA (VENTOLIN HFA) 90 mcg/actuation inhaler Inhale 2 Puffs as instructed every 4 hours as needed for Wheezing/Shortness of Breath. 18 g 3 Insulin Syringe-Needle U-100 (BD INSULIN SYRINGE UF II) 0.5 mL 31 gauge x 5/16 syrg Use as directed with insulin injections three times daily 300 Syringe 3 Blood Sugar Diagnostic, Drum (ACCU-CHEK COMPACT TEST) Strp Testing 2-3 times daily (Patient taking differently: 4 Strips four times daily.) 306 Strip 3 lancets(FREESTYLE LANCETS) Use as directed. (Patient not taking: Reported on 09/17/2023) 300 3 COSOPT 2 %-0.5 % EYE DROPS Use in eyes. 0 ASPIRIN 81 MG TAB Take 81 mg by mouth once daily. 0 B COMPLEX CAP Take 1 capsule by mouth once daily. 0 MULTIVITAMIN TAB Take 1 tablet by mouth once daily. 0 No current facility-administered medications for this visit. Pill bottles are not present. Adherence: denies missed doses. Rx coverage: [place] (more content not included)... [facility] 09-22-2024 Telephone encounter Note Pt has picked this up. [facility] 09-22-2024 Miscellaneous Notes Pt has picked this up. Pt notified this ready for pick and shovel man. He says he will get this today. Rec'd from mike nordisk 5 boxes of pen needles. Lot number [id number] ex date 01/19/29 2. Novolg [id number] 100units/ml 5 vials Lot number is [id number] exp date 03/22/26. 3. Rec'd 4 boxes of ozempic 1x3ml prefilled pen 4mg/3ml lot number is [id number] exp date 03/22/27 4. Rec'd 2 boxes of tresiba units-100 5x3ml prefilled pend lot number [id number] exp date 12/20/26 documented in this encounter [facility] 09-19-2024 Telephone encounter Note Pt notified this ready for pick and shovel man. He says he will get this today. [facility] 09-19-2024 Telephone encounter Note Rec'd from mike nordisk 5 boxes of pen needles. Lot number [id number] ex date 01/19/29 2. Novolg [id number] 100units/ml 5 vials Lot number is [id number] exp date 03/22/26. 3. Rec'd 4 boxes of ozempic 1x3ml prefilled pen 4mg/3ml lot number is [id number] exp date 03/22/27 4. Rec'd 2 boxes of tresiba units-100 5x3ml prefilled pend lot number [id number] exp date 12/20/26 [facility] 09-12-2024 Telephone encounter Note Contacted [employer] in regard to patient shipment of Novolog, Tresiba, Pen [place] & Ozempic 1mg. Spoke with hospital insurance representative and was informed medication is still in fulfillment with no tracking number attached. Since medication is well past 14 days of when it should have been delivered voucher was provided. Voucher to be used at retail/outpatient pharmacy of patient choice & used (IN PLACE OF) patient insurance. Voucher is good for 1 month worth of medication. Will route to consulting pharmacist to assist with prescription being sent. VOUCHER INFORMATION BELOW : BIN: [id number] PCN: CNRX GRP: [id number] Voucher ID: [id number] Medication: NovoLog 10mL vial BIN: [id number] PCN: CNRX GRP: [id number] Voucher ID: [id number] Medication: Tresiba 100U/ml FlexTouch BIN: [id number] PCN: CNRX GRP: [id number] Voucher ID: [id number] Medication: NovoFine Plus 32G [place] BIN: [id number] PCN: CNRX GRP: [id number] Voucher ID: [id number] Medication: Ozempic 1 mg/mL (1 pens x 3mL/pen) Brandon Rios real estate closer E-Mail : Phone : [phone] Fax : [phone] [facility] 09-12-2024 Miscellaneous Notes Contacted [employer] in regard to patient shipment of Novolog, Tresiba, Pen [place] & Ozempic 1mg. Spoke with hospital insurance representative and was informed medication is still in fulfillment with no tracking number attached. Since medication is well past 14 days of when it should have been delivered voucher was provided. Voucher to be used at retail/outpatient pharmacy of patient choice & used (IN PLACE OF) patient insurance. Voucher is good for 1 month worth of medication. Will route to consulting pharmacist to assist with prescription being sent. VOUCHER INFORMATION BELOW : BIN: [id number] PCN: CNRX GRP: [id number] Voucher ID: [id number] Medication: NovoLog 10mL vial BIN: [id number] PCN: CNRX GRP: [id number] Voucher ID: [id number] Medication: Tresiba 100U/ml FlexTouch BIN: [id number] PCN: CNRX GRP: [id number] Voucher ID: [id number] Medication: NovoFine Plus 32G [place] BIN: [id number] PCN: CNRX GRP: [id number] Voucher ID: [id number] Medication: Ozempic 1 mg/mL (1 pens x 3mL/pen) Brandon Rios [facility] E-Mail : [email or web address] Phone : [phone] Fax : [phone] documented in this encounter [facility] 07-03-2024 Telephone encounter Note Received patient signatures, scanned to Teams for pharmacy PAP team. Completed provider form for renewal; needs provider signature. Once provider signs, please fax to pharmacy PAP team ATTN: Brandon at [phone] Jessica Ricks, ArmandoD, BCACP Primary Care Clinical Cylinder Valve Repairer [facility] Work Phone: 07-03-2024 Miscellaneous Notes Received patient signatures, scanned to Teams for pharmacy PAP team. Completed provider form for renewal; needs provider signature. Once provider signs, please fax to pharmacy PAP team ATTN: Brandon at [phone] Jessica Ricks, PharmD, BCACP Primary Care Clinical Cylinder Valve Repairer documented in this encounter [facility] 07-03-2024 History of Present illness Narrative Images from the original note were not included. Primary Care Pharmacy Visit CC (Reason for Consult): (E11.29, R80.9, Z79.4) Type 2 diabetes mellitus with microalbuminuria, with long-term current use of insulin (HCC) (primary encounter diagnosis) Goal(s): A1c <8% Last Collaborating Provider Visit: 06/23/24 with Jossy Caruso CNP Jing Mckeon is a 68 year old male presenting for follow up visit in person. Patient consents to pharmacy collaborative practice agreement. Last Pharmacy Visit: 03/20/24 HPI: Reports doing well States BGs have been up and down lately, states A1c even went up a little bit. States this morning had a lower reading Admits he has had some missed doses of insulin lately, also including Ozempic Has good supply of insulins and Ozempic Gets Luiza sensors through [employer] Current DM Medications: Ozempic 1 mg once weekly on Mondays Tresiba 20 units once daily at bedtime Novolog 10 units with breakfast, 10 units with lunch, 12 units with dinner Diet Denies any recent changes Appetite still on lower side GLYCEMIC CONTROL: Glucometer present at visit: Yes Hypoglycemia: Yes CGM Data Past medical history reviewed. ALLERGIES No Known Allergies Current Outpatient Medications Medication Sig Dispense Refill metoprolol succinate ER (TOPROL XL) 50 mg 24 hr tablet Take 1 tablet by mouth two times a day. 60 tablet 5 gabapentin (NEURONTIN) 300 mg capsule Take 1 capsule by mouth two times a day for 90 days. (Patient not taking: Reported on 02/21/2024) 60 capsule 2 Cholecalciferol, Vitamin D3, 125 mcg (5,000 unit) cap Take 1 capsule by mouth once daily. inulin-chromium picolinate (FIBER SELECT GUMMIES) 2-100 gram-mcg chew Take 1 Dose by mouth once daily. flash glucose sensor (FREESTYLE LUIZA 2 SENSOR) kit Ust to check blood sugars once daily. Please apply free voucher for 1 sensor, pt to bring in 6 Each 3 dorzolamide HCl/timolol maleat (DORZOLAMIDE-TIMOLOL OPHTHALMIC) Use 1 Drop in both eyes two times a day. beta-carotene,A,-vits C,E/mins (OCUVITE ORAL) Take 1 tablet by mouth once daily. LATANOPROST, PF, OPHTHALMIC Use 1 Drop in both eyes every morning. tamsulosin (FLOMAX) 0.4 mg Take 2 capsules by mouth daily at bedtime. (Patient taking differently: Take 0.4 mg by mouth two times a day.) 180 capsule 3 simvastatin (ZOCOR) 40 mg tablet Take 1 tablet by mouth daily at bedtime. 90 tablet 3 enalapril (VASOTEC) 20 mg tablet Take 1 tablet by mouth two times a day. 180 tablet 3 flash glucose scanning reader (FREESTYLE LUIZA 2 READER) Use to check blood sugars once a day. 1 Each 0 insulin aspart U-100 (NOVOLOG FLEXPEN U-100 INSULIN) 100 unit/mL (3 mL) Inject 10 units before breakfast, 10 units before lunch, and 12 units before dinner as directed. Through [employer] Patient Assistance. insulin degludec (TRESIBA FLEXTOUCH U-100) 100 unit/mL (3 mL) injection pen Inject 20 Units subcutaneously every morning. Patient Assistance Medication (Patient taking differently: Inject 20 Units subcutaneously daily with dinner. Patient Assistance Medication) semaglutide (OZEMPIC) 1 mg/dose (4 mg/3 mL) pen Inject 1 mg subcutaneously one time a week. meclizine (ANTIVERT) 25 mg tab Take 1 tablet by mouth three times daily as needed (dizziness). 30 tablet 1 glucagon (GVOKE HYPOPEN 2-PACK) 0.5 mg/0.1 mL AutoInjector Use to treat severe hypoglycemic episode as recommend on product labeling. (Patient not taking: Reported on 03/19/2023) 0.2 mL 3 glucose 4 gram chewable tablet Take 4 tablets by mouth as needed. 30 tablet 2 Insulin [place], Disposable, (BD ULTRA-FINE DONNIE PEN NEEDLE) 32 gauge x Use as directed with insulin injections three times daily 100 Each 11 albuterol HFA (VENTOLIN HFA) 90 mcg/actuation inhaler Inhale 2 Puffs as instructed every 4 hours as needed for Wheezing/Shortness of Breath. 18 g 3 Insulin Syringe-Needle U-100 (BD INSULIN SYRINGE UF II) 0.5 mL 31 gauge x 5/16 syrg Use as directed with insulin injections three times daily 300 Syringe 3 Blood Sugar Diagnostic, Drum (ACCU-CHEK COMPACT TEST) Strp Testing 2-3 times daily (Patient taking differently: 4 Strips four times daily.) 306 Strip 3 lancets(FREESTYLE LANCETS) Use as directed. (Patient not taking: Reported on 09/17/2023) 300 3 COSOPT 2 %-0.5 % EYE DROPS Use in eyes. 0 ASPIRIN 81 MG TAB Take 81 mg by mouth once daily. 0 B COMPLEX CAP Take 1 capsule by mouth once daily. 0 MULTIVITAMIN TAB Take 1 tablet by mouth once daily. 0 No current facility-administered medications for this visit. Pill bottles are not present. Adherence: reports missed doses. Rx coverage: Payor: MEDICARE / Plan: MEDICARE A AND B / Product Type: Medicare / Medications affordable? Enrolled in [employer] (Tresiba, Novolog and Ozempic) PHARMACOTHERAPY PREVENTATIVE MEDS: On LARA/ARB: Yes On Statin: Yes On ASA: Yes EXAM: There were no vitals taken for this visit. Last 3 Encounter BP Readings: Date: BP: 06/23/2024 127/72 02/21/2024 126/78 01/15/2024 124/60 Wt: 76.2 kg (167 lb 15.9 oz) BMI: 26.31 kg/(m^2) LABS: Lab Results Component Value Date HBA1C 8.2 06/20/2024 HBA1C 7.4 11/03/2023 HBA1C 7.5 07/14/2023 HBA1C 7.7 06/27/2021 HBA1C 9.3 11/01/2020 HBA1C 10.0 11/08/2019 Glucose 210 06/20/2024 BUN 14 06/20/2024 Creatinine 0.78 06/20/2024 NA 139 06/20/2024 K 4.8 06/20/2024 Chloride 104 06/20/2024 CO2 25 06/20/2024 Protein, Total 6.9 06/20/2024 Albumin 4.0 06/20/2024 Calcium 9.7 06/20/2024 Alk Phos Total 136 06/20/2024 Bilirubin, Total 0.4 06/20/2024 AST (SGOT) 22 06/20/2024 ALT (SGPT) 14 06/20/2024 Lab Results Component Value Date CHOL 154 06/20/2024 CHOL 149 06/27/2021 LDL 76 06/20/2024 LDL 67 06/27/2021 HDL 59 06/20/2024 HDL 62 06/27/2021 TG 95 06/20/2024 TG 102 06/27/2021 Albumin/Creat Ratio (mg/g) Date Value 06/20/2024 33 (H) eGFR-All Other Races (.) Date Value 06/27/2021 >60 Estimated Glomerular Filtration Rate (mL/min/1.73m ) Date Value 06/20/2024 96 ASSESSMENT/PLAN: 1. Type 2 diabetes mellitus with microalbuminuria, with long-term current use of insulin (HCC) - ICD9: 250.40, 791.0, V58.67, ICD10: E11.29, R80.9, Z79.4 - Improving control - Continue current medications - Statin prescribed - simvastatin - Blood glucose monitoring on a continuous glucose monitoring schedule - Counseled on healthy diet and regular exercise - Discussed diabetic education issues of hypoglycemic/hyperglycemic symptoms, medication-specific side effects and monitoring, and medication adherence - Follow up in 3 months, sooner should any other issues arise. - Due for A1c ~ (already ordered) Follow Up: Next PCP visit: 10/22/24 Next PharmD visit: 10/02/24 Jessica Ricks, PharmD, BCACP Primary Care Clinical Cylinder Valve Repairer I spent a total of 25 minutes on the date of the service which included preparing to see the patient, [id number] patient care, completing clinical documentation, and counseling and educating the patient/family/caregiver. . documented in this encounter [facility] 07-03-2024 Instructions Jessica Ricks RPh - 07/03/2024 2:00 PM EST Continue current medications - work on taking all doses more consistently Get A1c lab drawn before our September appointment documented in this encounter [facility] 07-03-2024 Note HNO ID: [id number] Author: JESSICA RICKS RPh Service: ? Author Type: Pharmacist Type: Progress Notes Filed: 07/03/2024 15:30 Note Text: Primary Care Pharmacy Visit CC (Reason for Consult): (E11.29, R80.9, Z79.4) Type 2 diabetes mellitus with microalbuminuria, with long-term current use of insulin (HCC) (primary encounter diagnosis) Goal(s): A1c <8% Last Collaborating Provider Visit: 06/23/24 with Jossy Caruso CNP Jing Mckeon is a 68 year old male presenting for follow up visit in person. Patient consents to pharmacy collaborative practice agreement. Last Pharmacy Visit: 03/20/24 HPI: Reports doing well States BGs have been up and down lately, states A1c even went up a little bit. States this morning had a lower reading Admits he has had some missed doses of insulin lately, also including Ozempic Has good supply of insulins and Ozempic Gets Luiza sensors through [employer] Current DM Medications: Ozempic 1 mg once weekly on Mondays Tresiba 20 units once daily at bedtime Novolog 10 units with breakfast, 10 units with lunch, 12 units with dinner Diet Denies any recent changes Appetite still on lower side GLYCEMIC CONTROL: Glucometer present at visit: Yes Hypoglycemia: Yes CGM Data Past medical history reviewed. ALLERGIES No Known Allergies Current Outpatient Medications Medication Sig Dispense Refill metoprolol succinate ER (TOPROL XL) 50 mg 24 hr tablet Take 1 tablet by mouth two times a day. 60 tablet 5 gabapentin (NEURONTIN) 300 mg capsule Take 1 capsule by mouth two times a day for 90 days. (Patient not taking: Reported on 02/21/2024) 60 capsule 2 Cholecalciferol, Vitamin D3, 125 mcg (5,000 unit) cap Take 1 capsule by mouth once daily. inulin-chromium picolinate (FIBER SELECT GUMMIES) 2-100 gram-mcg chew Take 1 Dose by mouth once daily. flash glucose sensor (FREESTYLE LUIZA 2 SENSOR) kit Ust to check blood sugars once daily. Please apply free voucher for 1 sensor, pt to bring in 6 Each 3 dorzolamide HCl/timolol maleat (DORZOLAMIDE-TIMOLOL OPHTHALMIC) Use 1 Drop in both eyes two times a day. beta-carotene,A,-vits C,E/mins (OCUVITE ORAL) Take 1 tablet by mouth once daily. LATANOPROST, PF, OPHTHALMIC Use 1 Drop in both eyes every morning. tamsulosin (FLOMAX) 0.4 mg Take 2 capsules by mouth daily at bedtime. (Patient taking differently: Take 0.4 mg by mouth two times a day.) 180 capsule 3 simvastatin (ZOCOR) 40 mg tablet Take 1 tablet by mouth daily at bedtime. 90 tablet 3 enalapril (VASOTEC) 20 mg tablet Take 1 tablet by mouth two times a day. 180 tablet 3 flash glucose scanning reader (FREESTYLE LUIZA 2 READER) Use to check blood sugars once a day. 1 Each 0 insulin aspart U-100 (NOVOLOG FLEXPEN U-100 INSULIN) 100 unit/mL (3 mL) Inject 10 units before breakfast, 10 units before lunch, and 12 units before dinner as directed. Through [employer] Patient Assistance. insulin degludec (TRESIBA FLEXTOUCH U-100) 100 unit/mL (3 mL) injection pen Inject 20 Units subcutaneously every morning. Patient Assistance Medication (Patient taking differently: Inject 20 Units subcutaneously daily with dinner. Patient Assistance Medication) semaglutide (OZEMPIC) 1 mg/dose (4 mg/3 mL) pen Inject 1 mg subcutaneously one time a week. meclizine (ANTIVERT) 25 mg tab Take 1 tablet by mouth three times daily as needed (dizziness). 30 tablet 1 glucagon (GVOKE HYPOPEN 2-PACK) 0.5 mg/0.1 mL AutoInjector Use to treat severe hypoglycemic episode as recommend on product labeling. (Patient not taking: Reported on 03/19/2023) 0.2 mL 3 glucose 4 gram chewable tablet Take 4 tablets by mouth as needed. 30 tablet 2 Insulin [place], Disposable, (BD ULTRA-FINE DONNIE PEN NEEDLE) 32 gauge x 5/32 Use as directed with insulin injections three times daily 100 Each 11 albuterol HFA (VENTOLIN HFA) 90 mcg/actuation inhaler Inhale 2 Puffs as instructed every 4 hours as needed for Wheezing/Shortness of Breath. 18 g 3 Insulin Syringe-Needle U-100 (BD INSULIN SYRINGE UF II) 0.5 mL 31 gauge x 5/16 syrg Use as directed with insulin injections three times daily 300 Syringe 3 Blood Sugar Diagnostic, Drum (ACCU-CHEK COMPACT TEST) Strp Testing 2-3 times daily (Patient taking differently: 4 Strips four times daily.) 306 Strip 3 lancets(FREESTYLE LANCETS) Use as directed. (Patient not taking: Reported on 09/17/2023) 300 3 COSOPT 2 %-0.5 % EYE DROPS Use in eyes. 0 ASPIRIN 81 MG TAB Take 81 mg by mouth once daily. 0 B COMPLEX CAP Take 1 capsule by mouth once daily. 0 MULTIVITAMIN TAB Take 1 tablet by mouth once daily. 0 No current facility-administered medications for this visit. Pill bottles are not present. Adherence: reports missed doses. Rx coverage: Payor: MEDICARE / Plan: MEDICARE A AND B / Product Type: Medicare / Medications affordable? Enrolled in [employer] (Tresiba, Novolog and Ozempic) PHARMACOTHERAPY PREVENTATIVE MEDS: On LARA/ARB: Yes On Statin: Yes (more content not included)... [facility] 06-26-2024 Telephone encounter Note Called and spoke with patient. Rescheduled today's appointment for 07/03/24. Jessica Ricks PharmD, NATHALY Primary Care Clinical Cylinder Valve Repairer [facility] Work Phone: 06-26-2024 Miscellaneous Notes Called and spoke with patient. Rescheduled today's appointment for 07/03/24. Jessica Ricks PharmD, NATHALY Primary Care Clinical Cylinder Valve Repairer Provider will be out of office/working remotely due to weather; today's appointment needs rescheduling. Called patient to reschedule or switch to phone visit; unable to reach patient. Unable to leave VM on home phone number, VM not set up. Left VM on spouse's phone number with message cancelling today's in office visit and phone number to call to reschedule appointment. Jessica Ricks PharmD, NATHALY Primary Care Clinical Cylinder Valve Repairer documented in this encounter [facility] 06-26-2024 Telephone encounter Note Provider will be out of office/working remotely due to weather; today's appointment needs rescheduling. Called patient to reschedule or switch to phone visit; unable to reach patient. Unable to leave VM on home phone number, VM not set up. Left VM on spouse's phone number with message cancelling today's in office visit and phone number to call to reschedule appointment. Jessica Ricks PharmD, NATHALY Primary Care Clinical Cylinder Valve Repairer [facility] 06-23-2024 Note HNO ID: [id number] Author: JOSSY CARUSO APRN.CAVALRY SCOUT Service: ? Author Type: Nurse Specialist Type: Progress Notes Filed: 06/23/2024 13:40 Note Text: SUBJECTIVE: Influenza Vaccine(1) due on 03/23/2024 Covid-19 Vaccine( season) due on 03/23/2024 HPI Jing Mckeon is a 68 year old male. 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 He notes a closed fracture of his left hip December 22, [address] Schreiber at [facility]. He has completed physical therapy. He is doing better. Missed his most recent appointment, has rescheduled. Notes that her blood sugars have been trending upward. Has followed with PharmD regarding DM. Notes CGM is very helpful. He notes this is working well for him. No low blood sugars, hs noted trending upward. Has missed some medication doses. Notes no GI upset or abdominal pain. DIABETES MELLITUS: Notes BS typically controlled. No recent low blood sugars. No report excessive thirst or increased frequency of urination, chest pain or dyspnea , numbness, tingling or pain in extremities, new or unusual visual symptoms, low sugar/hypoglycemic reactions, weight loss/gain, lightheadedness/dizziness, and bowel changes/loose stools. Patient's last HgA1C was Hemoglobin A1C (%) Date Value 06/20/2024 8.2 11/03/2023 7.4 06/27/2021 7.7 11/01/2020 9.3 ) HTN: Without report of headache, chest pain, palpitations, dyspnea, peripheral edema, orthopnea, fatigue, and PND. Last 14 Encounter BP Readings: Date: BP: 06/23/2024 127/72 02/21/2024 126/78 01/15/2024 124/60 12/07/2023 181/80 11/12/2023 136/84 10/22/2023 160/80 09/17/2023 144/76[Marcella Gee notified of blood pressure.[ 08/10/2023 120/78 03/19/2023 128/60 11/13/2022 138/72 09/15/2022 138/80 07/27/2022 131/71 07/14/2022 136/78 07/03/2022 162/94 Hyperlipidemia. Mr. Mckeon reports doing well on current therapy of simvastatin His most recent lipid panels are: Cholesterol, Total (mg/dL) Date Value 06/20/2024 154 07/14/2023 144 06/27/2021 149 11/01/2020 147 HDL Cholesterol (mg/dL) Date Value 06/20/2024 59 07/14/2023 67 06/27/2021 62 11/01/2020 49 LDL Cholesterol (mg/dL) Date Value 06/20/2024 76 07/14/2023 68 06/27/2021 67 11/01/2020 66 Triglyceride (mg/dL) Date Value 06/20/2024 95 07/14/2023 47 06/27/2021 102 11/01/2020 162 The 10-year ASCVD risk score (Katya CHAPARRO, et al., 2019) is: 29.7% Values used to calculate the score: Age: 68 years Sex: Male Is Non- : No Diabetic: Yes Tobacco smoker: No Systolic Blood Pressure: 126 mmHg Is BP treated: Yes HDL Cholesterol: 59 mg/dL Total Cholesterol: 154 mg/dL BPH symptoms are stable. He has seen urology. MRI completed. He has a follow up visit scheduled. Review of Systems Constitutional: Negative. Respiratory: Negative. Cardiovascular: Negative. Endocrine: Negative. Objective There were no vitals taken for this visit. Physical Exam Vitals and nursing note reviewed. Constitutional: Appearance: Normal appearance. HENT: Head: Normocephalic and atraumatic. Eyes: Conjunctiva/sclera: Conjunctivae normal. Neck: Thyroid: No thyromegaly. Vascular: Normal carotid pulses. No JVD. Cardiovascular: Rate and Rhythm: Normal rate and regular rhythm. Pulses: Carotid pulses are 2+ on the right side and 2+ on the left side. Radial pulses are 2+ on the right side and 2+ on the left side. Dorsalis pedis pulses are 1+ on the left side. Pulmonary: Effort: Pulmonary effort is normal. Breath sounds: Normal breath sounds. Abdominal: General: Bowel sounds are normal. Palpations: Abdomen is soft. Musculoskeletal: Left lower leg: Edema (scant non pitting edema) present. Feet: Left foot: Skin integrity: Skin integrity normal. Skin: General: Skin is warm and dry. Neurological: General: No focal deficit present. Mental Status: He is alert and oriented to person, place, and time. ALLERGIES No Known Allergies Medications metoprolol succinate ER (TOPROL XL) 50 mg 24 hr tablet Take 1 tablet by mouth two times a day. gabapentin (NEURONTIN) 300 mg capsule Take 1 capsule by mouth two times a day for 90 days. (Patient not taking: Reported on 02/21/2024) Cholecalciferol, Vitamin D3, 125 mcg (5,000 unit) cap Take 1 ca (more content not included)... [facility] 06-23-2024 History of Present illness Narrative SUBJECTIVE: Influenza Vaccine(1) due on 03/23/2024 Covid-19 Vaccine(2023- season) due on 03/23/2024 HPI Jing Mckeon is a 68 year old male. 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 He notes a closed fracture of his left hip December 22, [address] Schreiber at [facility]. He has completed physical therapy. He is doing better. Missed his most recent appointment, has rescheduled. Notes that her blood sugars have been trending upward. Has followed with PharmD regarding DM. Notes CGM is very helpful. He notes this is working well for him. No low blood sugars, hs noted trending upward. Has missed some medication doses. Notes no GI upset or abdominal pain. DIABETES MELLITUS: Notes BS typically controlled. No recent low blood sugars. No report excessive thirst or increased frequency of urination, chest pain or dyspnea , numbness, tingling or pain in extremities, new or unusual visual symptoms, low sugar/hypoglycemic reactions, weight loss/gain, lightheadedness/dizziness, and bowel changes/loose stools. Patient's last HgA1C was Hemoglobin A1C (%) Date Value 06/20/2024 8.2 11/03/2023 7.4 06/27/2021 7.7 11/01/2020 9.3 ) HTN: Without report of headache, chest pain, palpitations, dyspnea, peripheral edema, orthopnea, fatigue, and PND. Last 14 Encounter BP Readings: Date: BP: 06/23/2024 127/72 02/21/2024 126/78 01/15/2024 124/60 12/07/2023 181/80 11/12/2023 136/84 10/22/2023 160/80 09/17/2023 144/76[Marcella Sukhialexandra notified of blood pressure.[ 08/10/2023 120/78 03/19/2023 128/60 11/13/2022 138/72 09/15/2022 138/80 07/27/2022 131/71 07/14/2022 136/78 07/03/2022 162/94 Hyperlipidemia. Mr. Mckeon reports doing well on current therapy of simvastatin His most recent lipid panels are: Cholesterol, Total (mg/dL) Date Value 06/20/2024 154 07/14/2023 144 06/27/2021 149 11/01/2020 147 HDL Cholesterol (mg/dL) Date Value 06/20/2024 59 07/14/2023 67 06/27/2021 62 11/01/2020 49 LDL Cholesterol (mg/dL) Date Value 06/20/2024 76 07/14/2023 68 06/27/2021 67 11/01/2020 66 Triglyceride (mg/dL) Date Value 06/20/2024 95 07/14/2023 47 06/27/2021 102 11/01/2020 162 The 10-year ASCVD risk score (Katya CHAPARRO, et al., 2019) is: 29.7% Values used to calculate the score: Age: 68 years Sex: Male Is Non- : No Diabetic: Yes Tobacco smoker: No Systolic Blood Pressure: 126 mmHg Is BP treated: Yes HDL Cholesterol: 59 mg/dL Total Cholesterol: 154 mg/dL BPH symptoms are stable. He has seen urology. MRI completed. He has a follow up visit scheduled. Review of Systems Constitutional: Negative. Respiratory: Negative. Cardiovascular: Negative. Endocrine: Negative. Objective There were no vitals taken for this visit. Physical Exam Vitals and nursing note reviewed. Constitutional: Appearance: Normal appearance. HENT: Head: Normocephalic and atraumatic. Eyes: Conjunctiva/sclera: Conjunctivae normal. Neck: Thyroid: No thyromegaly. Vascular: Normal carotid pulses. No JVD. Cardiovascular: Rate and Rhythm: Normal rate and regular rhythm. Pulses: Carotid pulses are 2+ on the right side and 2+ on the left side. Radial pulses are 2+ on the right side and 2+ on the left side. Dorsalis pedis pulses are 1+ on the left side. Pulmonary: Effort: Pulmonary effort is normal. Breath sounds: Normal breath sounds. Abdominal: General: Bowel sounds are normal. Palpations: Abdomen is soft. Musculoskeletal: Left lower leg: Edema (scant non pitting edema) present. Feet: Left foot: Skin integrity: Skin integrity normal. Skin: General: Skin is warm and dry. Neurological: General: No focal deficit present. Mental Status: He is alert and oriented to person, place, and time. ALLERGIES No Known Allergies Medications metoprolol succinate ER (TOPROL XL) 50 mg 24 hr tablet Take 1 tablet by mouth two times a day. gabapentin (NEURONTIN) 300 mg capsule Take 1 capsule by mouth two times a day for 90 days. (Patient not taking: Reported on 02/21/2024) Cholecalciferol, Vitamin D3, 125 mcg (5,000 unit) cap Take 1 capsule by mouth once daily. inulin-chromium picolinate (FIBER SELECT GUMMIES) 2-100 gram-mcg chew Take 1 Dose by mouth once daily. flash glucose sensor (FREESTYLE LUIZA 2 SENSOR) kit Ust to check blood sugars once daily. Please apply free voucher for 1 sensor, pt to bring in dorzolamide HCl/timolol maleat (DORZOLAMIDE-TIMOLOL OPHTHALMIC) Use 1 Drop in both eyes two times a day. beta-carotene,A,-vits C,E/mins (OCUVITE ORAL) Take 1 tablet by mouth once daily. LATANOPROST, PF, OPHTHALMIC Use 1 Drop in both eyes every morning. tamsulosin (FLOMAX) 0.4 mg Take 2 capsules by mouth daily at bedtime. (Patient taking differently: Take 0.4 mg by mouth two times a day.) simvastatin (ZOCOR) 40 mg tablet Take 1 tablet by mouth daily at bedtime. enalapril (VASOTEC) 20 mg tablet Take 1 tablet by mouth two times a day. flash glucose scanning reader (Gene[employer]STYLE LUIZA 2 READER) Use to check blood sugars once a day. insulin aspart U-100 (NOVOLOG FLEXPEN U-100 INSULIN) 100 unit/mL (3 mL) Inject 10 units before breakfast, 10 units before lunch, and 12 units before dinner as directed. Through [employer]. insulin degludec (TRESIBA FLEXTOUCH U-100) 100 unit/mL (3 mL) injection pen Inject 20 Units subcutaneously every morning. Patient Assistance Medication (Patient taking differently: Inject 20 Units subcutaneously daily with dinner. Patient Assistance Medication) semaglutide (OZEMPIC) 1 mg/dose (4 mg/3 mL) pen Inject 1 mg subcutaneously one time a week. meclizine (ANTIVERT) 25 mg tab Take 1 tablet by mouth three times daily as needed (dizziness). glucagon (GVOKE HYPOPEN 2-PACK) 0.5 mg/0.1 mL AutoInjector Use to treat severe hypoglycemic episode as recommend on product labeling. (Patient not taking: Reported on 03/19/2023) glucose 4 gram chewable tablet Take 4 tablets by mouth as needed. Insulin [place], Disposable, (BD ULTRA-FINE DONNIE PEN NEEDLE) 32 gauge x 5/32 Use as directed with insulin injections three times daily albuterol HFA (VENTOLIN HFA) 90 mcg/actuation inhaler Inhale 2 Puffs as instructed every 4 hours as needed for Wheezing/Shortness of Breath. Insulin Syringe-Needle U-100 (BD INSULIN SYRINGE UF II) 0.5 mL 31 gauge x 5/16 syrg Use as directed with insulin injections three times daily timolol maleate (TIMOPTIC) 0.25 % ophthalmic solution Use 1 Drop in both eyes two times a day. (Patient not taking: Reported on 01/15/2024) Blood Sugar Diagnostic, Drum (ACCU-CHEK COMPACT TEST) Strp Testing 2-3 times daily (Patient taking differently: 4 Strips four times daily.) lancets(FREESTYLE LANCETS) Use as directed. (Patient not taking: Reported on 09/17/2023) XALATAN 0.005 % EYE DROPS Use 1 Drop in both eyes once daily. (Patient not taking: Reported on 11/12/2023) COSOPT 2 %-0.5 % EYE DROPS Use in eyes. ASPIRIN 81 MG TAB Take 81 mg by mouth once daily. B COMPLEX CAP Take 1 capsule by mouth once daily. MULTIVITAMIN TAB Take 1 tablet by mouth once daily. PAST MEDICAL HISTORY Diagnosis Date Benign neoplasm of colon BPH without obstruction/lower urinary tract symptoms 04/01/2012 Carpal tunnel syndrome Degeneration of lumbar or lumbosacral intervertebral disc 05/02/2008 Elevated prostate specific antigen (PSA) 07/2023 Essential hypertension, benign Glaucoma Hemorrhage of rectum and anus Hyperplasia of prostate Primary hypertension Pure hypercholesterolemia Gets labs done at [facility] for MIQUEL Siddiqui Type II or unspecified type diabetes mellitus without mention of complication, uncontrolled Continues to follow with MIQUEL Siddiqui, 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--gets labs through [facility] Unspecified glaucoma(365.9) Social History Tobacco Use Smoking status: Never Smokeless tobacco: Never Vaping Use Vaping status: Never Used Substance Use Topics Alcohol use: Not Currently Drug use: Never Latest Ref Rng 07/14/2023 11/03/2023 WBC 3.70 - 11.00 k/uL 8.85 RBC 4.20 - 6.00 m/uL 4.80 Hemoglobin 13.0 - 17.0 g/dL 14.6 Hematocrit 39.0 - 51.0 % 43.9 MCV 80.0 - 100.0 fL 91.5 MCH 26.0 - 34.0 pg 30.4 MCHC 30.5 - 36.0 g/dL 33.3 RDW-CV 11.5 - 15.0 % 13.1 Platelet Count 150 - 400 k/uL 236 MPV 9.0 - 12.7 fL 12.6 Neut% % 48.1 Abs Neut (ANC) 1.45 - 7.50 k/uL 4.25 Lymph% % 37.5 Abs Lymph 1.00 - 4.00 k/uL 3.32 Lasalle% % 7.9 Abs Lasalle <0.87 k/uL 0.70 Eosin% % 5.1 Abs Eosin <0.46 k/uL 0.45 Baso% % 1.2 Abs Baso <0.11 k/uL 0.11 (H) Immature Gran % % 0.2 IMMATURE GRANS (ABS) <0.10 k/uL <0.03 NRBC /100 WBC 0.0 Absolute nRBC <0.01 k/uL <0.01 DTYPE Auto Protein, Total 6.3 - 8.0 g/dL 6.7 7.0 Albumin 3.9 - 4.9 g/dL 4.0 4.0 Calcium 8.5 - 10.2 mg/dL 9.7 9.8 Bilirubin, Total 0.2 - 1.3 mg/dL 0.4 0.3 Alkaline Phosphatase 38 - 113 U/L 123 (H) 129 (H) AST 14 - 40 U/L 25 35 ALT 10 - 54 U/L 15 25 Glucose 74 - 99 mg/dL 99 130 (H) BUN 9 - 24 mg/dL 15 15 Creatinine 0.73 - 1.22 mg/dL 0.76 0.90 Sodium 136 - 144 mmol/L 141 141 Potassium 3.7 - 5.1 mmol/L 4.2 4.5 Chloride 97 - 105 mmol/L 106 (H) 106 (H) CO2 22 - 30 mmol/L 26 25 Anion Gap 9 - 18 mmol/L 9 10 eGFR >=60 mL/min/1.73m 97 92 Cholesterol, Total <200 mg/dL 144 Triglyceride <150 mg/dL 47 HDL Cholesterol >39 mg/dL 67 Non HDL Cholesterol <130 mg/dL 77 Fasting Time hrs 11 VLDL Cholesterol <30 mg/dL 9 TC:HDL Ratio <5.10 2.15 LDL Cholesterol <100 mg/dL 68 LDL:HDL Ratio <2.54 1.01 Creatinine, Ur Random (UCRR) 20.0 - 300.0 mg/dL 112.9 Albumin, Urine Random mg/L 31.9 Albumin/Creat Ratio <30 mg/g 28 Hemoglobin A1C 4.3 - 5.6 % 7.5 (H) 7.4 (H) Estimated Average Glucose mg/dL 169 166 PSA <2.60 ng/mL 6.60 (H) PSA, Percent Free % 33 PSA Screening <2.60 ng/mL 6.91 (H) ASSESSMENT/PLAN: 1. Type 2 diabetes mellitus with microalbuminuria, with long-term current use of insulin (HCC) - ICD9: 250.40, 791.0, V58.67, ICD10: E11.29, R80.9, Z79.4 (primary diagnosis) Decreased control, has been missing some medication doses., continue with current treatment unchanged for now. Continue with CGM and pharmacist visits. - COMP METABOLIC PANEL - CBC + DIFF - ALBUMIN/CREAT RATIO RND UR - HGB A1C - LIPID PANEL BASIC 2. Primary hypertension - ICD9: 401.9, ICD10: I10 {controlled - Continue current medications - Encouraged sodium restriction, DASH or Mediterranean diet - Recommend regular aerobic exercise 3. Closed fracture of left hip requiring operative repair with routine healing, subsequent encounter - ICD9: V54.13, ICD10: S72.002D Magno well, has completed therapy. 4. BPH with obstruction/lower urinary tract symptoms - ICD9: 600.01, 599.69, ICD10: N40.1, N13.8 MRI completed, has follow up with urology provider. 5. Encounter for immunization - ICD9: V03.89, ICD10: Z23 - INFLUENZA VACCINE, PRSV FREE, AGE 65+ YR, HIGH DOSE, TRIVALENT (FLUZONE HIGH-DOSE) 4 mos Son Zambrano MD 8 mo follow up Jossy Caruso APRN.CAVALRY SCOUT with labs Jossy Caruso APRN.CNS Medical Decision Making: Problems: Moderate: 2+ stable chronic illnesses Risk: Moderate: Drug management Medical Decision Making Level: 4 - Moderate documented in this encounter [facility] 06-12-2024 Telephone encounter Note Telephoned the patient regarding missed appointment. New appt on 06/26/24. [facility] 06-12-2024 Miscellaneous Notes Telephoned the patient regarding missed appointment. New appt on 06/26/24. Primary Care Pharmacy Rescheduling Outreach Call center, please contact patient and reschedule in person visit for Diabetes management within ~4 week(s). (Visit length: 30 minutes) Thank you, Jessica Ricks, PharmD, BCACP Primary Care Clinical Cylinder Valve Repairer 06/12/2024 1:17 PM documented in this encounter [facility] 06-12-2024 Telephone encounter Note Primary Care Pharmacy Rescheduling Outreach Call center, please contact patient and reschedule in person visit for Diabetes management within ~4 week(s). (Visit length: 30 minutes) Thank you, Jessica Ricks, PharmD, BCACP Primary Care Clinical Cylinder Valve Repairer 06/12/2024 1:17 PM [facility] Work Phone: 05-07-2024 Telephone encounter Note Called and patient's voicemail full, but able to leave a message on 's voicemail to call back to get message of results. Letter with directions and results typed and printed and mailed to patient home address. [facility] 05-07-2024 Miscellaneous Notes Called and patient's voicemail full, but able to leave a message on 's voicemail to call back to get message of results. Letter with directions and results typed and printed and mailed to patient home address. Called patient and he did not answer and voicemail not set up Attempted to call again and unable to leave message. Called and patient's voicemail full, but able to leave a message on 's voicemail to call back to get message of results. ----- Message from Marcella Gee APRN.YARD WORKER, DNP sent at 05/05/2024 4:37 PM EDT ----- Team - Can you call the patient and inform him his Prostate MRI is negative. I would like him to follow up with me in 3 months. Either at [place] or [place]. IMPRESSION: No focal lesions suspicious for clinically significant prostate cancer (PI-RADS 2). No pelvic lymphadenopathy. No suspicious osseous lesions. Marcella Gee DNP, OPHELIA Department of Urology [facility] documented in this encounter [facility] 05-07-2024 Telephone encounter Note Called patient and he did not answer and voicemail not set up [facility] 05-06-2024 Telephone encounter Note Attempted to call again and unable to leave message. [facility] 05-06-2024 Telephone encounter Note Called and patient's voicemail full, but able to leave a message on 's voicemail to call back to get message of results. [facility] 05-06-2024 Telephone encounter Note ----- Message from Marcella Gee APRN.LIZZ JACINTO sent at 05/05/2024 4:37 PM EDT ----- Team - Can you call the patient and inform him his Prostate MRI is negative. I would like him to follow up with me in 3 months. Either at [place] or [place]. IMPRESSION: No focal lesions suspicious for clinically significant prostate cancer (PI-RADS 2). No pelvic lymphadenopathy. No suspicious osseous lesions. Marcella Gee DNP, CNP Department of Urology [facility] 04-25-2024 History of Present illness Narrative Summary: MRI Radiology Service Progress Note DATE OF SERVICE: April 25, 2024 TIME: 11:40 AM PATIENT IDENTITY VERIFICATION COMPLETED USING TWO (2) STANDARD IDENTIFIERS: Name and Date of confirmed by patient verbally. FALL SCREENING: Has the patient had 2 falls in the last year or 1 fall with injury or currently using an Ambulatory Assistive Device (Walker, Cane, Wheelchair, Crutches, etc.)? No PATIENT GENDER DATA: Male PATIENT RELEVANT IMPLANT DATA REVIEWED: Yes PATIENT PRESENTS WITH AN IMPLANTABLE OR ATTACHED PHARMACY OPERATIONS MANAGER: No ALLERGIES: Reviewed and unchanged CONTRAST ALLERGY: NO. EXAM: MRI - CONTRAST TYPE: GROUP II PERIPHERAL IV DATA: Ambulatory: A peripheral IV was started in the Right hand with a Angio cath: 22 gauge. RADIOLOGY DEPARTMENT: MR; Exam(s) Completed: Body: Prostate SIGNATURE: FRANCE Taylor)() PATIENT NAME: Jing Mckeon DATE: April 25, 2024 TIME: 11:40 AM documented in this encounter [facility] 04-25-2024 Note HNO ID: [id number] Author: PATRICIA NEGRON RT(R) Service: Radiology Author Type: Technologist Type: Progress Notes Filed: 04/25/2024 11:41 Note Text: Summary: MRI Radiology Service Progress Note DATE OF SERVICE: April 25, 2024 TIME: 11:40 AM PATIENT IDENTITY VERIFICATION COMPLETED USING TWO (2) STANDARD IDENTIFIERS: Name and Date of confirmed by patient verbally. FALL SCREENING: Has the patient had 2 falls in the last year or 1 fall with injury or currently using an Ambulatory Assistive Device (Walker, Cane, Wheelchair, Crutches, etc.)? No PATIENT GENDER DATA: Male PATIENT RELEVANT IMPLANT DATA REVIEWED: Yes PATIENT PRESENTS WITH AN IMPLANTABLE OR ATTACHED PHARMACY OPERATIONS MANAGER: No ALLERGIES: Reviewed and unchanged CONTRAST ALLERGY: NO. EXAM: MRI - CONTRAST TYPE: GROUP II PERIPHERAL IV DATA: Ambulatory: A peripheral IV was started in the Right hand with a Angio cath: 22 gauge. RADIOLOGY DEPARTMENT: MR; Exam(s) Completed: Body: Prostate SIGNATURE: RT Brandon(R)(MR) PATIENT NAME: Jing Mckeon DATE: April 25, 2024 TIME: 11:40 AM [facility] 04-25-2024 History of Present illness Narrative Summary: XRAY Radiology Service Progress Note PATIENT NAME: Jing Mckeon DATE OF SERVICE: April 25, 2024 TIME: 11:04 AM PATIENT IDENTITY VERIFICATION COMPLETED USING TWO (2) IDENTIFIERS: Name and Date of confirmed by patient verbally. FALL SCREENING: Has the patient had 2 falls in the last year or 1 fall with injury or currently using an Ambulatory Assistive Device (Walker, Cane, Wheelchair, Crutches, etc.)? No PATIENT GENDER DATA: Male PATIENT RELEVANT IMPLANT DATA REVIEWED: Not Applicable PATIENT PRESENTS WITH AN IMPLANTABLE OR ATTACHED PHARMACY OPERATIONS MANAGER: No RADIOLOGY DEPARTMENT: General X-ray: Exam(s) Completed: Skull X-Ray PERIPHERAL IV DATA: Not applicable SIGNED BY: RT Zohreh(R) April 25, 2024 11:04 AM documented in this encounter [facility] 04-25-2024 Note HNO ID: [id number] Author: KAY CHERRY RT(R) Service: Radiology Author Type: Technologist Type: Progress Notes Filed: 04/25/2024 11:04 Note Text: Summary: XRAY Radiology Service Progress Note PATIENT NAME: Jing Mckeon DATE OF SERVICE: April 25, 2024 TIME: 11:04 AM PATIENT IDENTITY VERIFICATION COMPLETED USING TWO (2) IDENTIFIERS: Name and Date of confirmed by patient verbally. FALL SCREENING: Has the patient had 2 falls in the last year or 1 fall with injury or currently using an Ambulatory Assistive Device (Walker, Cane, Wheelchair, Crutches, etc.)? No PATIENT GENDER DATA: Male PATIENT RELEVANT IMPLANT DATA REVIEWED: Not Applicable PATIENT PRESENTS WITH AN IMPLANTABLE OR ATTACHED PHARMACY OPERATIONS MANAGER: No RADIOLOGY DEPARTMENT: General X-ray: Exam(s) Completed: Skull X-Ray PERIPHERAL IV DATA: Not applicable SIGNED BY: Kay Cherry RT(R) April 25, 2024 11:04 AM [facility] 04-16-2024 Telephone encounter Note Pt has picked these up. [facility] 04-16-2024 Miscellaneous Notes Pt has picked these up. These are ready for pick and shovel man in room 6 on the second floor, left side. Pt notified. He says he will get them either today or tomorrow he says. Rec'd 5 boxes of novofine 32G tip pen needles 100 pen needles in each box. Lot number is [id number] Exp date 11/19/2038 documented in this encounter [facility] 04-16-2024 Telephone encounter Note Per d/c summary 01/09/24 it says metoprolol succinate 50mg one twice daily per Dr. Bruce Medina. Reviewed also dispense report Please review. Pt says he's down to last couple tablets [facility] 04-16-2024 Miscellaneous Notes Per d/c summary 01/09/24 it says metoprolol succinate 50mg one twice daily per Dr. Bruce Medina. Reviewed also dispense report Please review. Pt says he's down to last couple tablets Please check if supposed to be 25 mg or 50 per patient. The hospital provider had raised it, so is not sure. Patient has been identified by name and date of : Yes Patient phones for refill(s): Requested Prescriptions Pending Prescriptions Disp Refills metoprolol succinate ER (TOPROL XL) 25 mg 24 hr tablet 90 tablet 3 Sig: Take 1 tablet by mouth once daily. Date of last office visit in primary care: 02/21/2024 Date of next office visit in primary care: 06/23/2024 Please advise. Thank you. Jud Islas. documented in this encounter [facility] 04-15-2024 Telephone encounter Note These are ready for pick and shovel man in room 6 on the second floor, left side. Pt notified. He says he will get them either today or tomorrow he says. [facility] 04-15-2024 Telephone encounter Note Rec'd 5 boxes of Zuorasanna 32G tip pen needles 100 pen needles in each box. Lot number is [id number] Exp date 11/19/2038 [facility] 04-15-2024 Telephone encounter Note Please check if supposed to be 25 mg or 50 per patient. The hospital provider had raised it, so is not sure. Patient has been identified by name and date of : Yes Patient phones for refill(s): Requested Prescriptions Pending Prescriptions Disp Refills metoprolol succinate ER (TOPROL XL) 25 mg 24 hr tablet 90 tablet 3 Sig: Take 1 tablet by mouth once daily. Date of last office visit in primary care: 02/21/2024 Date of next office visit in primary care: 06/23/2024 Please advise. Thank you. Jud Islas. [facility] 04-08-2024 Telephone encounter Note Patient assist meds picked up. Trang Sweeney LPN [facility] 04-08-2024 Miscellaneous Notes Patient assist meds picked up. Trang Sweeney LPN documented in this encounter [facility] 04-01-2024 Telephone encounter Note [facility] [address] Chart Copy of medications dispensed to patient for home use April 01, 2024 Physician Initial: LT Jing Mckeon Medication: Tresiba FlexTouch Qty: 2 boxes Directions: Injection 20 unit subcutaneously every day with dinner Jing Mckeon Medication: Ozempic Qty: 4 Directions: Injection 1 mg subcutaneously one time a week Jing Mckeon Medication: NovoLog FlexPen Qty: 3 Directions: Injection 10 units before breakfast and lunch and 12 units before dinner. Medications administered, dispensed and verified on the date indicated above Patient has been notified to pick and shovel man medication in office. Kasie Michel LPN [facility] 04-01-2024 Miscellaneous Notes [facility] [address] Chart Copy of medications dispensed to patient for home use April 01, 2024 Physician Initial: LT Jing Tonya Mike Medication: Tresiba FlexTouch Qty: 2 boxes Directions: Injection 20 unit subcutaneously every day with dinner Jing Mckeon Medication: Ozempic Qty: 4 Directions: Injection 1 mg subcutaneously one time a week Jing Mckeon Medication: NovoLog FlexPen Qty: 3 Directions: Injection 10 units before breakfast and lunch and 12 units before dinner. Medications administered, dispensed and verified on the date indicated above Patient has been notified to pick and shovel man medication in office. Kasie Michel LPN documented in this encounter [facility] 03-20-2024 History of Present illness Narrative Images from the original note were not included. Primary Care Pharmacy Visit CC (Reason for Consult): (E11.29, R80.9, Z79.4) Type 2 diabetes mellitus with microalbuminuria, with long-term current use of insulin (HCC) (primary encounter diagnosis) Goal(s): A1c <8% Last Collaborating Provider Visit: 02/21/24 with Jossy Caruso CNP Jing Mckeon is a 68 year old male presenting for follow up visit in person. Patient consents to pharmacy collaborative practice agreement. Last Pharmacy Visit: 12/13/23 HPI: Reports doing well Doing a lot better since hip fracture back at early December. Pain from hip fracture has improved, does still hurt after walking a lot States BGs have gone up a little bit in last couple of months but have been starting to improve lately Reports still having significant appetite suppression with Ozempic, tolerable for now Current DM Medications: Ozempic 1 mg once weekly on Mondays Tresiba 20 units once daily at bedtime Novolog 10 units with breakfast, 10 units with lunch, 12 units with dinner Diet Denies any recent changes GLYCEMIC CONTROL: Glucometer present at visit: Yes - Luiza 2 reader Hypoglycemia: No CGM Data Past medical history reviewed. ALLERGIES No Known Allergies Current Outpatient Medications Medication Sig Dispense Refill gabapentin (NEURONTIN) 300 mg capsule Take 1 capsule by mouth two times a day for 90 days. (Patient not taking: Reported on 02/21/2024) 60 capsule 2 Cholecalciferol, Vitamin D3, 125 mcg (5,000 unit) cap Take 1 capsule by mouth once daily. inulin-chromium picolinate (FIBER SELECT GUMMIES) 2-100 gram-mcg chew Take 1 Dose by mouth once daily. flash glucose sensor (FREESTYLE LUIZA 2 SENSOR) kit Ust to check blood sugars once daily. Please apply free voucher for 1 sensor, pt to bring in 6 Each 3 dorzolamide HCl/timolol maleat (DORZOLAMIDE-TIMOLOL OPHTHALMIC) Use 1 Drop in both eyes two times a day. beta-carotene,A,-vits C,E/mins (OCUVITE ORAL) Take 1 tablet by mouth once daily. LATANOPROST, PF, OPHTHALMIC Use 1 Drop in both eyes every morning. tamsulosin (FLOMAX) 0.4 mg Take 2 capsules by mouth daily at bedtime. (Patient taking differently: Take 0.4 mg by mouth two times a day.) 180 capsule 3 simvastatin (ZOCOR) 40 mg tablet Take 1 tablet by mouth daily at bedtime. 90 tablet 3 enalapril (VASOTEC) 20 mg tablet Take 1 tablet by mouth two times a day. 180 tablet 3 metoprolol succinate ER (TOPROL XL) 25 mg 24 hr tablet Take 1 tablet by mouth once daily. 90 tablet 3 flash glucose scanning reader (FREESTYLE LUIZA 2 READER) Use to check blood sugars once a day. 1 Each 0 insulin aspart U-100 (NOVOLOG FLEXPEN U-100 INSULIN) 100 unit/mL (3 mL) Inject 10 units before breakfast, 10 units before lunch, and 12 units before dinner as directed. Through [employer] Patient Assistance. insulin degludec (TRESIBA FLEXTOUCH U-100) 100 unit/mL (3 mL) injection pen Inject 20 Units subcutaneously every morning. Patient Assistance Medication (Patient taking differently: Inject 20 Units subcutaneously daily with dinner. Patient Assistance Medication) semaglutide (OZEMPIC) 1 mg/dose (4 mg/3 mL) pen Inject 1 mg subcutaneously one time a week. meclizine (ANTIVERT) 25 mg tab Take 1 tablet by mouth three times daily as needed (dizziness). 30 tablet 1 glucagon (GVOKE HYPOPEN 2-PACK) 0.5 mg/0.1 mL AutoInjector Use to treat severe hypoglycemic episode as recommend on product labeling. (Patient not taking: Reported on 03/19/2023) 0.2 mL 3 glucose 4 gram chewable tablet Take 4 tablets by mouth as needed. 30 tablet 2 Insulin [place], Disposable, (BD ULTRA-FINE DONNIE PEN NEEDLE) 32 gauge x 5/32 Use as directed with insulin injections three times daily 100 Each 11 albuterol HFA (VENTOLIN HFA) 90 mcg/actuation inhaler Inhale 2 Puffs as instructed every 4 hours as needed for Wheezing/Shortness of Breath. 18 g 3 Insulin Syringe-Needle U-100 (BD INSULIN SYRINGE UF II) 0.5 mL 31 gauge x 5/16 syrg Use as directed with insulin injections three times daily 300 Syringe 3 timolol maleate (TIMOPTIC) 0.25 % ophthalmic solution Use 1 Drop in both eyes two times a day. (Patient not taking: Reported on 01/15/2024) Blood Sugar Diagnostic, Drum (ACCU-CHEK COMPACT TEST) Strp Testing 2-3 times daily (Patient taking differently: 4 Strips four times daily.) 306 Strip 3 lancets(FREESTYLE LANCETS) Use as directed. (Patient not taking: Reported on 09/17/2023) 300 3 XALATAN 0.005 % EYE DROPS Use 1 Drop in both eyes once daily. (Patient not taking: Reported on 11/12/2023) 0 COSOPT 2 %-0.5 % EYE DROPS Use in eyes. 0 ASPIRIN 81 MG TAB Take 81 mg by mouth once daily. 0 B COMPLEX CAP Take 1 capsule by mouth once daily. 0 MULTIVITAMIN TAB Take 1 tablet by mouth once daily. 0 No current facility-administered medications for this visit. Pill bottles are not present. Adherence: denies missed doses. Rx coverage: Payor: MEDICARE / Plan: MEDICARE A AND B / Product Type: Medicare / Medications affordable? Enrolled in [employer] PAP (Tresiba, Novolog and Ozempic) PHARMACOTHERAPY PREVENTATIVE MEDS: On LARA/ARB: Yes On Statin: Yes On ASA: Yes EXAM: There were no vitals taken for this visit. Last 3 Encounter BP Readings: Date: BP: 02/21/2024 126/78 01/15/2024 124/60 12/07/2023 181/80 Wt: 76 kg (167 lb 8.8 oz) BMI: 26.24 kg/(m^2) LABS: Lab Results Component Value Date HBA1C 7.4 11/03/2023 HBA1C 7.5 07/14/2023 HBA1C 7.3 11/06/2022 HBA1C 7.7 06/27/2021 HBA1C 9.3 11/01/2020 HBA1C 10.0 11/08/2019 Glucose 130 11/03/2023 BUN 15 11/03/2023 Creatinine 0.90 11/03/2023 NA 141 11/03/2023 K 4.5 11/03/2023 Chloride 106 11/03/2023 CO2 25 11/03/2023 Protein, Total 7.0 11/03/2023 Albumin 4.0 11/03/2023 Calcium 9.8 11/03/2023 Alk Phos Total 129 11/03/2023 Bilirubin, Total 0.3 11/03/2023 AST (SGOT) 35 11/03/2023 ALT (SGPT) 25 11/03/2023 Lab Results Component Value Date CHOL 144 07/14/2023 CHOL 149 06/27/2021 LDL 68 07/14/2023 LDL 67 06/27/2021 HDL 67 07/14/2023 HDL 62 06/27/2021 TG 47 07/14/2023 TG 102 06/27/2021 Albumin/Creat Ratio (mg/g) Date Value 07/14/2023 28 eGFR-All Other Races (.) Date Value 06/27/2021 >60 Estimated Glomerular Filtration Rate (mL/min/1.73m ) Date Value 11/03/2023 92 ASSESSMENT/PLAN: 1. Type 2 diabetes mellitus with microalbuminuria, with long-term current use of insulin (HCC) - ICD9: 250.40, 791.0, V58.67, ICD10: E11.29, R80.9, Z79.4 - Controlled - Continue current medications - Statin prescribed - simvastatin - Blood glucose monitoring on a continuous glucose monitoring schedule - Counseled on healthy diet and regular exercise - Follow up in 3 months, sooner should any other issues arise. - Due for A1c ~05/04/24 (already ordered) Follow Up: Next PCP visit: 06/23/24 Next PharmD visit: 06/12/24 Jessica Ricks, Chantelle, BCACP Primary Care Clinical Cylinder Valve Repairer I spent a total of 20 minutes on the date of the service which included preparing to see the patient, [id number] patient care, completing clinical documentation, and counseling and educating the patient/family/caregiver. documented in this encounter [facility] 03-20-2024 Instructions Jessica Ricks RPh - 03/20/2024 9:30 AM EDT Get labs done in May Continue all current medications: Ozempic 1 mg once weekly on Mondays Tresiba 20 units once daily at bedtime Novolog 10 units with breakfast, 10 units with lunch, 12 units with dinner documented in this encounter [facility] 03-07-2024 Telephone encounter Note Called and spoke to the patient. An appointment was made for 03/20/24. [facility] 03-07-2024 Miscellaneous Notes Called and spoke to the patient. An appointment was made for 03/20/24. Primary Care Pharmacy Rescheduling Outreach Call center, please contact patient and reschedule in person visit for Diabetes management within ~4-6 week(s). (Visit length: 30 minutes) Thank you, Jessica Ricks PharmD, DEMETRACP Primary Care Clinical Cylinder Valve Repairer 03/06/2024 3:39 PM documented in this encounter [facility] 03-06-2024 Telephone encounter Note Primary Care Pharmacy Rescheduling Outreach Call center, please contact patient and reschedule in person visit for Diabetes management within ~4-6 week(s). (Visit length: 30 minutes) Thank you, Jessica Ricks PharmD, NATHALY Primary Care Clinical Cylinder Valve Repairer 03/06/2024 3:39 PM [facility] Work Phone: 02-21-2024 Instructions Jossy Caruso APRN.CNS - 02/21/2024 11:03 AM EDT For leg swelling: Wear compression socks or stockings when sitting or standing for prolonged periods of time Elevate your feet when seated Avoid salty foods documented in this encounter [facility] 02-21-2024 History of Present illness Narrative SUBJECTIVE: Depression Screening Never done Anxiety Screening Never done Advance Directive Discussion due on 07/23/2023 HPI Jing Mckeon is a 69 year old male. PMH signfiicant for ACTIVE PROBLEM LIST Primary Hypertension Pure Hypercholesterolemia Carpal Tunnel Syndrome Unspecified Glaucoma(365.9) Hemorrhage of Rectum and Anus Benign Neoplasm of Colon Hemorrhage of Gastrointestinal Tract, Unspecified Internal Hemorrhoids Without Mention of Complication 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, With Long-Term Current Use of Insulin (Hcc) History of Colonic Polyps Diverticulosis of Large Intestine Without Hemorrhage Colon Cancer Screening He notes a closed fracture of his left hip December 22, [address] Schreiber at [facility]. He has been going to physical therapy, has 3-4 more sessions scheduled at [facility] in [place]. He notes increased swelling of his left foot yesterday which resolved overnight for the most part. Notes he was on his feet more yesterday than usual. No foot or leg pain no redness no cords. Has followed with PharmD regarding DM. Notes CGM is very helpful.He notes this is working well for him. No low blood sugars. Previously had to have EMS come out with low blood sugars and this is no longer occurring with the CGM. DIABETES MELLITUS: Notes BS typically controlled. No recent low blood sugars. No report excessive thirst or increased frequency of urination, chest pain or dyspnea , numbness, tingling or pain in extremities, new or unusual visual symptoms, low sugar/hypoglycemic reactions, weight loss/gain, lightheadedness/dizziness, and bowel changes/loose stools. Patient's last HgA1C was Hemoglobin A1C (%) Date Value 11/03/2023 7.4 07/14/2023 7.5 06/27/2021 7.7 11/01/2020 9.3 ) HTN: Without report of headache, chest pain, palpitations, dyspnea, peripheral edema, orthopnea, fatigue, and PND. Last 14 Encounter BP Readings: Date: BP: 02/21/2024 126/78 01/15/2024 124/60 12/07/2023 181/80 11/12/2023 136/84 10/22/2023 160/80 09/17/2023 144/76[Marcella Gee notified of blood pressure.[ 08/10/2023 120/78 03/19/2023 128/60 11/13/2022 138/72 09/15/2022 138/80 07/27/2022 131/71 07/14/2022 136/78 07/03/2022 162/94 03/20/2022 104/72 Hyperlipidemia. Mr. Mckeon reports doing well on current therapy of simvastatin His most recent lipid panels are: Cholesterol, Total (mg/dL) Date Value 07/14/2023 144 07/10/2022 174 06/27/2021 149 11/01/2020 147 HDL Cholesterol (mg/dL) Date Value 07/14/2023 67 07/10/2022 66 06/27/2021 62 11/01/2020 49 LDL Cholesterol (mg/dL) Date Value 07/14/2023 68 07/10/2022 94 06/27/2021 67 11/01/2020 66 Triglyceride (mg/dL) Date Value 07/14/2023 47 07/10/2022 72 06/27/2021 102 11/01/2020 162 The 10-year ASCVD risk score (Katya CHAPARRO, et al., 2019) is: 27.4% Values used to calculate the score: Age: 68 years Sex: Male Is Non- : No Diabetic: Yes Tobacco smoker: No Systolic Blood Pressure: 126 mmHg Is BP treated: Yes HDL Cholesterol: 67 mg/dL Total Cholesterol: 144 mg/dL BPH symptoms are stable. He has seen urology. Considering adding Proscar. Will consider addition after MRI completed. Notes he may be a candidate for minimally invasive procedures. MRI of prostate is scheduled for March 14, 2024. This test needed to be rescheduled due to his hip injury and recovery. Review of Systems Constitutional: Negative. Respiratory: Negative. Cardiovascular: Negative. Endocrine: Negative. Objective BP 126/78 Pulse 86 Resp 16 Wt 76 kg (167 lb 8.8 oz) SpO2 96% BMI 26.24 kg/m Physical Exam Vitals and nursing note reviewed. Constitutional: Appearance: Normal appearance. HENT: Head: Normocephalic and atraumatic. Eyes: Conjunctiva/sclera: Conjunctivae normal. Neck: Thyroid: No thyromegaly. Vascular: Normal carotid pulses. No JVD. Cardiovascular: Rate and Rhythm: Normal rate and regular rhythm. Pulses: Carotid pulses are 2+ on the right side and 2+ on the left side. Radial pulses are 2+ on the right side and 2+ on the left side. Dorsalis pedis pulses are 1+ on the left side. Pulmonary: Effort: Pulmonary effort is normal. Breath sounds: Normal breath sounds. Abdominal: General: Bowel sounds are normal. Palpations: Abdomen is soft. Musculoskeletal: Left lower leg: Edema (scant non pitting edema) present. Feet: Left foot: Skin integrity: Skin integrity normal. Skin: General: Skin is warm and dry. Neurological: General: No focal deficit present. Mental Status: He is alert and oriented to person, place, and time. ALLERGIES No Known Allergies Medications Cholecalciferol, Vitamin D3, 125 mcg (5,000 unit) cap Take 1 capsule by mouth once daily. inulin-chromium picolinate (FIBER SELECT GUMMIES) 2-100 gram-mcg chew Take 1 Dose by mouth once daily. flash glucose sensor (FREESTYLE LUIZA 2 SENSOR) kit Ust to check blood sugars once daily. Please apply free voucher for 1 sensor, pt to bring in dorzolamide HCl/timolol maleat (DORZOLAMIDE-TIMOLOL OPHTHALMIC) Use 1 Drop in both eyes two times a day. beta-carotene,A,-vits C,E/mins (OCUVITE ORAL) Take 1 tablet by mouth once daily. LATANOPROST, PF, OPHTHALMIC Use 1 Drop in both eyes every morning. simvastatin (ZOCOR) 40 mg tablet Take 1 tablet by mouth daily at bedtime. enalapril (VASOTEC) 20 mg tablet Take 1 tablet by mouth two times a day. metoprolol succinate ER (TOPROL XL) 25 mg 24 hr tablet Take 1 tablet by mouth once daily. flash glucose scanning reader (FREESTYLE LUIZA 2 READER) Use to check blood sugars once a day. insulin aspart U-100 (NOVOLOG FLEXPEN U-100 INSULIN) 100 unit/mL (3 mL) Inject 10 units before breakfast, 10 units before lunch, and 12 units before dinner as directed. Through [employer] Patient Assistance. semaglutide (OZEMPIC) 1 mg/dose (4 mg/3 mL) pen Inject 1 mg subcutaneously one time a week. meclizine (ANTIVERT) 25 mg tab Take 1 tablet by mouth three times daily as needed (dizziness). glucose 4 gram chewable tablet Take 4 tablets by mouth as needed. Insulin [place], Disposable, (BD ULTRA-FINE DONNIE PEN NEEDLE) 32 gauge x 532 Use as directed with insulin injections three times daily albuterol HFA (VENTOLIN HFA) 90 mcg/actuation inhaler Inhale 2 Puffs as instructed every 4 hours as needed for Wheezing/Shortness of Breath. Insulin Syringe-Needle U-100 (BD INSULIN SYRINGE UF II) 0.5 mL 31 gauge x 5/16 syrg Use as directed with insulin injections three times daily COSOPT 2 %-0.5 % EYE DROPS Use in eyes. ASPIRIN 81 MG TAB Take 81 mg by mouth once daily. B COMPLEX CAP Take 1 capsule by mouth once daily. MULTIVITAMIN TAB Take 1 tablet by mouth once daily. gabapentin (NEURONTIN) 300 mg capsule Take 1 capsule by mouth two times a day for 90 days. (Patient not taking: Reported on 02/21/2024) tamsulosin (FLOMAX) 0.4 mg Take 2 capsules by mouth daily at bedtime. (Patient taking differently: Take 0.4 mg by mouth two times a day.) insulin degludec (TRESIBA FLEXTOUCH U-100) 100 unit/mL (3 mL) injection pen Inject 20 Units subcutaneously every morning. Patient Assistance Medication (Patient taking differently: Inject 20 Units subcutaneously daily with dinner. Patient Assistance Medication) glucagon (GVOKE HYPOPEN 2-PACK) 0.5 mg/0.1 mL AutoInjector Use to treat severe hypoglycemic episode as recommend on product labeling. (Patient not taking: Reported on 03/19/2023) timolol maleate (TIMOPTIC) 0.25 % ophthalmic solution Use 1 Drop in both eyes two times a day. (Patient not taking: Reported on 01/15/2024) Blood Sugar Diagnostic, Drum (ACCU-CHEK COMPACT TEST) Strp Testing 2-3 times daily (Patient taking differently: 4 Strips four times daily.) lancets(FREESTYLE LANCETS) Use as directed. (Patient not taking: Reported on 09/17/2023) XALATAN 0.005 % EYE DROPS Use 1 Drop in both eyes once daily. (Patient not taking: Reported on 11/12/2023) PAST MEDICAL HISTORY No date: Benign neoplasm of colon 04/01/2012: BPH without obstruction/lower urinary tract symptoms No date: Carpal tunnel syndrome 05/02/2008: Degeneration of lumbar or lumbosacral intervertebral disc 07/2023: Elevated prostate specific antigen (PSA) No date: Essential hypertension, benign No date: Glaucoma No date: Hemorrhage of rectum and anus No date: Hyperplasia of prostate No date: Primary hypertension No date: Pure hypercholesterolemia Comment: Gets labs done at [facility] for MIQUEL Siddiqui No date: Type II or unspecified type diabetes mellitus without mention of complication, uncontrolled Comment: Continues to follow with MIQUEL Siddiqui, Y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--gets labs through [facility] No date: Unspecified glaucoma(365.9) Social History Tobacco Use Smoking status: Never Smokeless tobacco: Never Vaping Use Vaping Use: Never used Substance Use Topics Alcohol use: Not Currently Drug use: Never Latest Ref Rng 07/14/2023 11/03/2023 WBC 3.70 - 11.00 k/uL 8.85 RBC 4.20 - 6.00 m/uL 4.80 Hemoglobin 13.0 - 17.0 g/dL 14.6 Hematocrit 39.0 - 51.0 % 43.9 MCV 80.0 - 100.0 fL 91.5 MCH 26.0 - 34.0 pg 30.4 MCHC 30.5 - 36.0 g/dL 33.3 RDW-CV 11.5 - 15.0 % 13.1 Platelet Count 150 - 400 k/uL 236 MPV 9.0 - 12.7 fL 12.6 Neut% % 48.1 Abs Neut (ANC) 1.45 - 7.50 k/uL 4.25 Lymph% % 37.5 Abs Lymph 1.00 - 4.00 k/uL 3.32 [place]alle% % 7.9 Abs [place] <0.87 k/uL 0.70 Eosin% % 5.1 Abs Eosin <0.46 k/uL 0.45 Baso% % 1.2 Abs Baso <0.11 k/uL 0.11 (H) Immature Gran % % 0.2 IMMATURE GRANS (ABS) <0.10 k/uL <0.03 NRBC /100 WBC 0.0 Absolute nRBC <0.01 k/uL <0.01 DTYPE Auto Protein, Total 6.3 - 8.0 g/dL 6.7 7.0 Albumin 3.9 - 4.9 g/dL 4.0 4.0 Calcium 8.5 - 10.2 mg/dL 9.7 9.8 Bilirubin, Total 0.2 - 1.3 mg/dL 0.4 0.3 Alkaline Phosphatase 38 - 113 U/L 123 (H) 129 (H) AST 14 - 40 U/L 25 35 ALT 10 - 54 U/L 15 25 Glucose 74 - 99 mg/dL 99 130 (H) BUN 9 - 24 mg/dL 15 15 Creatinine 0.73 - 1.22 mg/dL 0.76 0.90 Sodium 136 - 144 mmol/L 141 141 Potassium 3.7 - 5.1 mmol/L 4.2 4.5 Chloride 97 - 105 mmol/L 106 (H) 106 (H) CO2 22 - 30 mmol/L 26 25 Anion Gap 9 - 18 mmol/L 9 10 eGFR >=60 mL/min/1.73m 97 92 Cholesterol, Total <200 mg/dL 144 Triglyceride <150 mg/dL 47 HDL Cholesterol >39 mg/dL 67 Non HDL Cholesterol <130 mg/dL 77 Fasting Time hrs 11 VLDL Cholesterol <30 mg/dL 9 TC:HDL Ratio <5.10 2.15 LDL Cholesterol <100 mg/dL 68 LDL:HDL Ratio <2.54 1.01 Creatinine, Ur Random (UCRR) 20.0 - 300.0 mg/dL 112.9 Albumin, Urine Random mg/L 31.9 Albumin/Creat Ratio <30 mg/g 28 Hemoglobin A1C 4.3 - 5.6 % 7.5 (H) 7.4 (H) Estimated Average Glucose mg/dL 169 166 PSA <2.60 ng/mL 6.60 (H) PSA, Percent Free % 33 PSA Screening <2.60 ng/mL 6.91 (H) ASSESSMENT/PLAN: 1. Type 2 diabetes mellitus with microalbuminuria, with long-term current use of insulin (HCC) - ICD9: 250.40, 791.0, V58.67, ICD10: E11.29, R80.9, Z79.4 (primary diagnosis) Controlled, continue with current treatment unchanged. Continue with CGM, this has been very helpful for him to control glucose levels. - COMP METABOLIC PANEL - CBC + DIFF - ALBUMIN/CREAT RATIO RND UR - HGB A1C - LIPID PANEL BASIC 2. Swelling of left foot - ICD9: 729.81, ICD10: M79.89 Symptoms are most consistent with venous insufficiency. Endorse knee-high compression socks such as Jobst Sensifoot 8-15mmHg compression socks when sitting or standing for prolonged periods. Avoid excess sodium in diet elevate feet when seated to help with this. No reported shortness of breath or weight gain. 3. Closed fracture of left hip requiring operative repair with routine healing, subsequent encounter - ICD9: V54.13, ICD10: S72.002D Recovering from injury with surgical repair Dr. [facility]. Continues with physical therapy at [facility]. Walking with a cane. 4. BPH with obstruction/lower urinary tract symptoms - ICD9: 600.01, 599.69, ICD10: N40.1, N13.8 Has seen urology. MRI of prostate needed to be rescheduled, scheduled for later this month. Consideration for addition of Proscar or minimally invasive procedure if needed 5. Encounter for screening examination for other mental health and behavioral disorders - ICD9: V79.8, ICD10: Z13.39 - ANXIETY SCREENING 6. Screening for depression - ICD9: V79.0, ICD10: Z13.31 - DEPRESSION SCREENING 4 mo follow up Jossy Caruso APRN.CNS with labs, 8 mos Son Zambrano MD with labs Jossy Caruso APRN.CNS Medical Decision Making: Problems: Low: Acute, uncomplicated illness or injury Data: Unique test result(s) reviewed: 3+ Risk: Low: Low risk from testing/treatment Medical Decision Making Level: 3 - Low documented in this encounter [facility] 02-07-2024 Telephone encounter Note Called and spoke to the patient. An appointment was made for 03/06/24. [facility] 02-07-2024 Miscellaneous Notes Called and spoke to the patient. An appointment was made for 03/06/24. Primary Care Pharmacy Rescheduling Outreach Call center, please contact patient and reschedule in person visit for Diabetes management within ~4-6 week(s). (Visit length: 30 minutes) Thank you, Jessica Ricks, PharmD, BCACP Primary Care Clinical Cylinder Valve Repairer 02/07/2024 3:58 PM documented in this encounter [facility] 02-07-2024 Telephone encounter Note Primary Care Pharmacy Rescheduling Outreach Call center, please contact patient and reschedule in person visit for Diabetes management within ~4-6 week(s). (Visit length: 30 minutes) Thank you, Jessica Ricks, PharmD, BCACP Primary Care Clinical Cylinder Valve Repairer 02/07/2024 3:58 PM [facility] Work Phone: 01-29-2024 Telephone encounter Note Faxing order and Face sheet to [facility] at fax # [phone]. [facility] 01-29-2024 Miscellaneous Notes Faxing order and Face sheet to [facility] at fax # [phone]. Printed RX Fax to [facility] PT Kaylyn PT [facility] called in and reports she is going to be discharging the Pt from PT. She states she thinks he would still benefit from outpatient PT for balance and strengthening and is asking if provider would put in and order for outpatient PT for Pts L hip and fax it to [facility] at fax # [phone]. documented in this encounter [facility] 01-27-2024 Telephone encounter Note Printed RX Fax to [facility] PT [facility] 01-25-2024 Telephone encounter Note Kaylyn PT [facility] called in and reports she is going to be discharging the Pt from PT. She states she thinks he would still benefit from outpatient PT for balance and strengthening and is asking if provider would put in and order for outpatient PT for Pts L hip and fax it to [facility] at fax # [phone]. [facility] 01-21-2024 Telephone encounter Note Patient picked up Mike fine pen needles, denied any need for teaching. Trang Sweeney LPN [facility] 01-21-2024 Miscellaneous Notes Patient picked up Mike fine pen needles, denied any need for teaching. Trang Sweeney LPN [facility] [address] Chart Copy of medications dispensed to patient for home use January 18, 2024 Physician Initial: LT Jing Mckeon Medication: Mike Fine Pen Neeles Qty: 500 Directions: Use as directed with insulin injection three times daily. Medications administered, dispensed and verified on the date indicated above Patient has been notified to pick and shovel man medication in office. Kasie Michel LPN Pen needle and paperwork was taken over to side A 2nd floor. documented in this encounter [facility] 01-18-2024 Telephone encounter Note [facility] [address] Chart Copy of medications dispensed to patient for home use January 18, 2024 Physician Initial: LT Jing Mckeon Medication: Mike Fine Pen [place] Qty: 500 Directions: Use as directed with insulin injection three times daily. Medications administered, dispensed and verified on the date indicated above Patient has been notified to pick and shovel man medication in office. Kasie Michel LPN Pen needle and paperwork was taken over to side A 2nd floor. [facility] 01-15-2024 Telephone encounter Note Patient picked up medication today at office visit. [facility] 01-15-2024 Miscellaneous Notes Patient picked up medication today at office visit. Reviewed with pt. He says no changes with his DM meds. He will pick these up at 01/18/24 appt. Rec'd novolog flex pen 3 boxes lot number [id number] expt date 02/19/25. 2 boxes of tresiba u100 lot number [id number] ext date 12/20/25 4 boxes of ozempic 4mg/3ml pens lot number [id number] exp date 02/19/26. In review pt hs been admitted to [facility] then to TCU for broken hip and rehab. Will make contact with pt when d/c from [facility] TCU documented in this encounter [facility] 01-15-2024 History of Present illness Narrative Images from the original note were not included. Transitional Care Management Progress Note The patients TCM visit was performed within the 7 days of discharge. TCM Eligibility Documentation The following information was gathered during the initial Patient Outreach Encounter. 01/10/2024 Date of Outreach: Outreach Attempt 1: Contact Made Date of Discharge 01/09/2024 TRANSITION CARE MANAGEMENT (TCM) INITIAL CONTACT Batch Roller Operator Outreach Provider Action/FYI: TCM Initial contact with patient post discharge, spoke to patient. Patient identified by name and . TRANSITION CARE MANAGEMENT INITIAL OUTREACH DOCUMENTATION: 01/10/2024 Date of Outreach: Outreach Attempt 1: Contact Made Date of Discharge 01/09/2024 SUMMARY: -Pt discharged from [facility] on 01/09/24 -Admitted for: broken hip Do you have a hospital follow up appointment with your PCP? Appointment on 01/18/24 with Emilia Segovia. Yes. Remind patient of appointment date, time, and location. If not within 14 calendar days of discharge - please reschedule accordingly. MEDICATIONS: Many patients have questions or concerns about their medications once they are home. Were you prescribed any new medications? If yes, what are those medications? Finasteride 5mg daily Metopropol succinate 50mg one twice daily Oxycodone 5mg one by mouth ever 4 hours as needed for pain. #21. Pt says new rx went to [facility]. He has not picked them up yet. Were you told to hold any medications? No Were any of your medications discontinued? If yes, what are those medications? Metoprolol 25mg daily Do you have any questions about getting or taking your medications? No Your discharge instructions/After visit Summary (AVS) are important in guiding you through the recovery process. Is there anything I might help you understand? No Do you have all the necessary equipment and supplies at home? Yes Medical records from recent hospitalization: Placed for provider to review Pt has [facility]. Will will review with them his medicines if he has any questions. Last A1c at [facility] 12/24/23 was 7.1 If no data exists please enter it manually. If data exists please delete date of discharge and date of initial contact seen below. Provider Documentation: In follow-up of hospitalization, Jing Mckeon is a 68 year old male with the chief complaint of hospital discharge follow up. I have reviewed the patient s last hospital course including diagnostic testing performed during this hospitalization, their discharge medications, and my assessment and plan with the patient and any family members present at today s visit. HPI: Jing is a 68 year old male established patient of Son Zambrano MD. He presents today for a hospital discharge follow up. He was admitted to [facility] on 12/22/2023 and discharged on 01/09/2024. Admitted for a broken hip, left intertochanteric femur fracture with mild impaction and comminution of the lesser trochanter as a result of a fall. Other history of hypertension and diabetes. He had a left hip open reduction with internal fixation with an intramedullary nail on 12/23/[address] Douglas Schreiber. Transferred to acute in patient rehab on 12/24/2023. Discharged with [facility] per [facility]. Incisions healed up. Sugars doing well. Using a walker to get around. PT has come in already. Sleep is alright, taking the oxycodone before bed. Pain not bad, taking oxycodone only at night. Tylenol during the day. Appetite is normal. Elimination is normal, no constipation. Concern today of possible shingles. He has a rash on his left side below the breast area that wraps around to the back. This first occurred on 01/07/2024 and seems to be getting worse. It is painful. The rash is blistered and has pustules. Not too itchy. PAST MEDICAL HISTORY: Reviewed and updated PAST MEDICAL HISTORY Diagnosis Date Benign neoplasm of colon BPH without obstruction/lower urinary tract symptoms 04/01/2012 Carpal tunnel syndrome Degeneration of lumbar or lumbosacral intervertebral disc 05/02/2008 Elevated prostate specific antigen (PSA) 07/2023 Essential hypertension, benign Glaucoma Hemorrhage of rectum and anus Hyperplasia of prostate Primary hypertension Pure hypercholesterolemia Gets labs done at [facility] for MIQUEL Siddiqui Type II or unspecified type diabetes mellitus without mention of complication, uncontrolled Continues to follow with MIQUEL Siddiqui CNP/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--gets labs through [facility] Unspecified glaucoma(365.9) ALLERGIES: Reviewed and updated ALLERGIES No Known Allergies MEDICATIONS: Reviewed and updated Current Outpatient Medications Medication Sig Cholecalciferol, Vitamin D3, 125 mcg (5,000 unit) cap Take 1 capsule by mouth once daily. inulin-chromium picolinate (FIBER SELECT GUMMIES) 2-100 gram-mcg chew Take 1 Dose by mouth once daily. dorzolamide HCl/timolol maleat (DORZOLAMIDE-TIMOLOL OPHTHALMIC) Use 1 Drop in both eyes two times a day. beta-carotene,A,-vits C,E/mins (OCUVITE ORAL) Take 1 tablet by mouth once daily. LATANOPROST, PF, OPHTHALMIC Use 1 Drop in both eyes every morning. tamsulosin (FLOMAX) 0.4 mg Take 2 capsules by mouth daily at bedtime. (Patient taking differently: Take 0.4 mg by mouth two times a day.) simvastatin (ZOCOR) 40 mg tablet Take 1 tablet by mouth daily at bedtime. enalapril (VASOTEC) 20 mg tablet Take 1 tablet by mouth two times a day. metoprolol succinate ER (TOPROL XL) 25 mg 24 hr tablet Take 1 tablet by mouth once daily. insulin aspart U-100 (NOVOLOG FLEXPEN U-100 INSULIN) 100 unit/mL (3 mL) Inject 10 units before breakfast, 10 units before lunch, and 12 units before dinner as directed. Through [employer] Patient Assistance. insulin degludec (TRESIBA FLEXTOUCH U-100) 100 unit/mL (3 mL) injection pen Inject 20 Units subcutaneously every morning. Patient Assistance Medication (Patient taking differently: Inject 20 Units subcutaneously daily with dinner. Patient Assistance Medication) semaglutide (OZEMPIC) 1 mg/dose (4 mg/3 mL) pen Inject 1 mg subcutaneously one time a week. meclizine (ANTIVERT) 25 mg tab Take 1 tablet by mouth three times daily as needed (dizziness). glucose 4 gram chewable tablet Take 4 tablets by mouth as needed. albuterol HFA (VENTOLIN HFA) 90 mcg/actuation inhaler Inhale 2 Puffs as instructed every 4 hours as needed for Wheezing/Shortness of Breath. COSOPT 2 %-0.5 % EYE DROPS Use in eyes. ASPIRIN 81 MG TAB Take 81 mg by mouth once daily. B COMPLEX CAP Take 1 capsule by mouth once daily. MULTIVITAMIN TAB Take 1 tablet by mouth once daily. gabapentin (NEURONTIN) 300 mg capsule Take 1 capsule by mouth two times a day for 90 days. flash glucose sensor (FREESTYLE LUIZA 2 SENSOR) kit Ust to check blood sugars once daily. Please apply free voucher for 1 sensor, pt to bring in flash glucose scanning reader (FREESTYLE LUIZA 2 READER) Use to check blood sugars once a day. glucagon (GVOKE HYPOPEN 2-PACK) 0.5 mg/0.1 mL AutoInjector Use to treat severe hypoglycemic episode as recommend on product labeling. (Patient not taking: Reported on 03/19/2023) Insulin [place], Disposable, (BD ULTRA-FINE DONNIE PEN NEEDLE) 32 gauge x Use as directed with insulin injections three times daily Insulin Syringe-Needle U-100 (BD INSULIN SYRINGE UF II) 0.5 mL 31 gauge x 5/16 syrg Use as directed with insulin injections three times daily timolol maleate (TIMOPTIC) 0.25 % ophthalmic solution Use 1 Drop in both eyes two times a day. (Patient not taking: Reported on 01/15/2024) Blood Sugar Diagnostic, Drum (ACCU-CHEK COMPACT TEST) Strp Testing 2-3 times daily (Patient taking differently: 4 Strips four times daily.) lancets(FREESTYLE LANCETS) Use as directed. (Patient not taking: Reported on 09/17/2023) XALATAN 0.005 % EYE DROPS Use 1 Drop in both eyes once daily. (Patient not taking: Reported on 11/12/2023) No current facility-administered medications for this visit. SOCIAL HISTORY: Reviewed and updated Social History Tobacco Use Smoking status: Never Smokeless tobacco: Never Vaping Use Vaping Use: Never used Substance Use Topics Alcohol use: Not Currently Drug use: Never FAMILY HISTORY: Reviewed and updated FAMILY HISTORY Problem Relation Age of Onset Diabetes Mother other (kidney/cancer) Father Heart Sister Kidney Disease Sister Diabetes Brother Heart Brother Colon Cancer No Family History Review of Systems Constitutional: Negative. Respiratory: Negative. Cardiovascular: Negative. Skin: Positive for rash. All other systems reviewed and negative, other than HPI. Physical Exam Vitals and nursing note reviewed. Constitutional: General: He is awake. He is not in acute distress. Appearance: Normal appearance. He is well-developed and well-groomed. He is not ill-appearing, toxic-appearing or diaphoretic. HENT: Head: Normocephalic. Right Ear: External ear normal. Left Ear: External ear normal. Nose: Nose normal. Eyes: General: Vision grossly intact. Conjunctiva/sclera: Conjunctivae normal. Pupils: Pupils are equal, round, and reactive to light. Neck: Vascular: No JVD. Trachea: Trachea normal. Cardiovascular: Rate and Rhythm: Normal rate and regular rhythm. Pulses: Normal pulses. Heart sounds: Normal heart sounds. No murmur heard. Pulmonary: Effort: Pulmonary effort is normal. No accessory muscle usage, prolonged expiration or respiratory distress. Breath sounds: Normal breath sounds. Musculoskeletal: Cervical back: Neck supple. Skin: General: Skin is warm and dry. Capillary Refill: Capillary refill takes less than 2 seconds. Findings: Rash present. Rash is vesicular. Comments: Rash consistent with shingles to the left lower chest and wraps around to below the shoulder blade Neurological: General: No focal deficit present. Mental Status: He is alert and oriented to person, place, and time. Mental status is at baseline. Psychiatric: Attention and Perception: Attention and perception normal. Mood and Affect: Mood and affect normal. Speech: Speech normal. Behavior: Behavior normal. Behavior is cooperative. Thought Content: Thought content normal. Cognition and Memory: Cognition and memory normal. Judgment: Judgment normal. BP 124/60 Pulse 78 Wt 168 lb (76.2kg) SpO2 98% 1. I have reviewed the patient record including associated test results during the last hospitalization Yes 2. I have reviewed Lab test Yes 3. I have reviewed Radiology test Yes 4. I reviewed assessment/plan with the patient/family member Yes ASSESSMENT/PLAN 1. Closed fracture of left hip requiring operative repair with routine healing, subsequent encounter - ICD9: V54.13, ICD10: S72.002D (primary diagnosis) He is doing well, slowly improving. HHC per [facility] and has started PT. Pain is manageable at this point, oxycodone only at HS. 2. Hospital discharge follow-up - ICD9: V67.59, ICD10: Z09 See #1, follow up set up for about 1 month. 3. Disseminated herpes zoster - ICD9: 053.79, ICD10: B02.7 Consistent with a shingles rash. Gabapentin for associated pain. Too far out for antiviral and steroid taper will impact glucose with his DM. - GABAPENTIN 300 MG CAPSULE 4. Type 2 diabetes mellitus with microalbuminuria, with long-term current use of insulin (HCC) - ICD9: 250.40, 791.0, V58.67, ICD10: E11.29, R80.9, Z79.4 - Controlled - Continue current medications - Counseled on healthy diet and regular exercise 5. Primary hypertension - ICD9: 401.9, ICD10: I10 - Controlled - Continue current medications - Recommend home blood pressure monitoring, to bring results to next visit - Encouraged sodium restriction, DASH or Mediterranean diet - Recommend regular aerobic exercise Portions of this note have been entered by ancillary staff. I have reviewed and when necessary edited, so that they are an adequate record of my encounter with this patient Please note that parts of this document were created using voice recognition software and therefore may contain grammatical errors. Patient verbalizes understanding of instructions from today's visit and in agreement with treatment plan. Questions answered. Agrees to call the office if questions, concerns or issues with acute symptoms not improving or if they worsen. See diagnoses and orders for additional plan(s). Allergies and medications were reviewed, list was updated, and refills given if needed. Past medical, surgical, social, and family history reviewed and updated as appropriate. Encouraged proper diet & exercise as well as compliance with taking medications. Age-appropriate health preventative measures were discussed. Return if symptoms worsen or fail to improve, for Keep next scheduled appointment.. Emilia Segovia APRN.CNP documented in this encounter [facility] 01-15-2024 Telephone encounter Note [facility] 01-15-2024 Miscellaneous Notes [facility] Kaylyn PT calling from [facility] to report plan of care for patient and physical therapy will visit patient 2 times a week for 3 weeks. Physical therapy will work with patient on lower extremity strength, transferring and gait training, and balance and endurance. No call back needed. Samara Puente RN documented in this encounter [facility] 01-15-2024 Telephone encounter Note Kaylyn PT calling from [facility] to report plan of care for patient and physical therapy will visit patient 2 times a week for 3 weeks. Physical therapy will work with patient on lower extremity strength, transferring and gait training, and balance and endurance. No call back needed. Samara Puente RN [facility] 01-15-[address] [facility]- reports patient has a rash on left side, below breast, wraps around to back. Reports it looks like shingles. Patient reported he first noticed it on 01-07-24, now getting worse, painful, blisters, pustules. Scheduled same day appt. [facility] 01-15-[address] [facility]- reports patient has a rash on left side, below breast, wraps around to back. Reports it looks like shingles. Patient reported he first noticed it on 01-07-24, now getting worse, painful, blisters, pustules. Scheduled same day appt. documented in this encounter [facility] 01-11-2024 Telephone encounter Note OK for HHC. Okay to resume diabetes medicine as previously taking prior to hospital admission. Worsening of any difficulties with controlling blood sugar. [facility] 01-11-2024 Miscellaneous Notes OK for HHC. Okay to resume diabetes medicine as previously taking prior to hospital admission. Worsening of any difficulties with controlling blood sugar. Chio RN calling from [facility] to report plan of care for patient and SN will visit patient 1 time a week for two weeks. SN will work with patient on disease management and medication monitoring/education. Chio reports she is adding Vitamin D3 125 mg daily, Ocuvite daily, Fiber Gummy daily, and MVI daily to medication as patient reported he is taking those. Meds Updated. Chio also reports that patient is going to go back on the Tresiba and not follow DM meds as ordered at the hospital because BS today was elevated at 215. Keshia Best RN documented in this encounter [facility] 01-11-2024 Telephone encounter Note Chio RN calling from [facility] to report plan of care for patient and SN will visit patient 1 time a week for two weeks. SN will work with patient on disease management and medication monitoring/education. Chio reports she is adding Vitamin D3 125 mg daily, Ocuvite daily, Fiber Gummy daily, and MVI daily to medication as patient reported he is taking those. Meds Updated. Chio also reports that patient is going to go back on the Tresiba and not follow DM meds as ordered at the hospital because BS today was elevated at 215. Keshia Best RN [facility] 01-10-2024 Telephone encounter Note Reviewed with pt. He says no changes with his DM meds. He will pick these up at 01/18/24 appt. 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 Patient identified by name and . TRANSITION CARE MANAGEMENT INITIAL OUTREACH DOCUMENTATION: 01/10/2024 Date of Outreach: Outreach Attempt 1: Contact Made Date of Discharge 01/09/2024 SUMMARY: -Pt discharged from [facility] on 01/09/24 -Admitted for: broken hip Do you have a hospital follow up appointment with your PCP? Appointment on 01/18/24 with Emilia Segovia. Yes. Remind patient of appointment date, time, and location. If not within 14 calendar days of discharge - please reschedule accordingly. MEDICATIONS: Many patients have questions or concerns about their medications once they are home. Were you prescribed any new medications? If yes, what are those medications? Finasteride 5mg daily Metopropol succinate 50mg one twice daily Oxycodone 5mg one by mouth ever 4 hours as needed for pain. #21. Pt says new rx went to [facility]. He has not picked them up yet. Were you told to hold any medications? No Were any of your medications discontinued? If yes, what are those medications? Metoprolol 25mg daily Do you have any questions about getting or taking your medications? No Your discharge instructions/After visit Summary (AVS) are important in guiding you through the recovery process. Is there anything I might help you understand? No Do you have all the necessary equipment and supplies at home? Yes Medical records from recent hospitalization: Placed for provider to review Pt has HHS. Will will review with them his medicines if he has any questions. Last A1c at [facility] 12/24/23 was 7.1 documented in this encounter [facility] 01-08-2024 Note [facility] Medical Records Department [address] [place] [address] Discharge Summary 01/08/24 1357 MR#: [id number] Acct: [id number] Name: JING MCKEON Rep #: [id number] : 1955 68 From: Bruce Medina DO PCP: Dr. Son Zambrano MD Status:DIS IN Location: [place] [address] Providers Date of Admission: 12/24/23 Date of Discharge: 01/09/24 Primary Care Physician: Dr. Son Zambrano MD Reason For Visit: LEFT HIP ORIF Diagnosis Discharge Diagnosis (1) Debility: Status: Acute Code(s): R53.81 - Other malaise (2) Injury due to fall: Status: Resolved Code(s): W19.XXXA - Unspecified fall, initial encounter Qualifiers: Encounter type: subsequent encounter Qualified Code(s): W19.XXXD - Unspecified fall, subsequent encounter (3) Intertrochanteric fracture of left hip: Status: Resolved Code(s): S72.142A - Displaced intertrochanteric fracture of left femur, initial encounter for closed fracture Qualifiers: Encounter type: subsequent encounter Fracture alignment: nondisplaced Fracture healing: w ith routine healing Fracture type: closed Qualified Code(s): S72.145D - Nondisplaced intertrochanteric fracture of left femur, subsequent encounter for closed fracture with routine healing (4) History of open reduction and internal fixation (ORIF) procedure: Status: Inactive Code(s): Z98.890 - Other specified postprocedural states Plan: Dr. Douglas Schreiber on 12/23/2023. (5) Acute blood loss anemia: Status: Acute Code(s): D62 - Acute posthemorrhagic anemia Plan: Hemoglobin is stable 11.6 at the time of discharge from rehab. 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 Proscar 5 mg daily was added to his drug regimen. He has no orthostatic hypotension and he denies lightheadedness at discharge. He is no longer retaining urine. (8) Radicular leg pain: Status: Resolved Code(s): M54.10 - Radiculopathy, site unspecified Plan: At presentation to rehab he c/o Left anterior thigh pain. It resolved with Gabapentin which we initially scheduled BID. He was eventually transitioned to BID PRN and he last took Gabapentin on 01/04/24. Plan 1. DC home with [facility] on 01/09/24. 2. He will follow up with Dr. Zambrano and with Dr. Douglas Schreiber. Medications at Discharge Home Medications dorzolamide 2 % eye drops See Rx Instructions ophthalmic (eye) BID glaucoma 10/06/15 latanoprost 0.005 % eye drops 1 drp ophthalmic (eye) DAILY glaucoma 10/06/15 simvastatin 40 mg tablet 40 mg PO DAILY cholesterol 10/06/15 tamsulosin 0.4 mg capsule 0.4 mg PO BID prostate 10/06/15 timolol 0.5 % eye drops 1 drp ophthalmic (eye) BID glaucoma 10/06/15 aspirin 81 mg tablet,delayed release (Adult Low Dose Aspirin) 81 mg PO QDAY blood thin 07/03/17 vitamin B complex 1 cap PO BID supplement 07/03/17 enalapril maleate 20 mg tablet 20 mg PO BID hypertension 07/24/17 acetaminophen 500 mg tablet 1,000 mg (2 x 500 mg) PO Q8 PRN pain #1 TAB 01/08/24 finasteride 5 mg tablet 5 mg PO DAILY #30 tabs 01/08/24 insulin glargine 100 unit/mL (3 mL) subcutaneous pen (Basaglar KwikPen U-100 Insulin) 20 unit (0.2 mL) subcut QPM #15 mL 01/08/24 insulin regular human 100 unit/mL (3 mL) subcutaneous pen (Novolin R FlexPen) See Rx Instructions .Route .COMPLEX #15 mL 01/08/24 metoprolol succinate 50 mg tablet,extended release 24 hr 50 mg PO BID #60 tabs 01/08/24 oxycodone 5 mg tablet 5 mg PO Q4H PRN PRN pain 4-10 7 days #21 tabs 01/08/24 Hospital Course Operations - (Open reduction with internal fixation with an intramedullary nail on 12/23/[address] Douglas Schreiber.) Procedures None Summary of Care Provided Minutes Spent on Discharge: 30 Hospital Course: Alec CH HENRY, is a 68 M with a PMH of diabetes mellitus type 2, nephrolithiasis, GERD, asthma, dyslipidemia, glaucoma and BPH who presented to the emergency department at [facility] on 12/22/2023 after a mechanical fall at home complaining of left hip pain. Plain x-ray of the hip showed findings concerning for nondisplaced left intertrochanteric femur fracture. Dr. Cole (more content not included)... [facility] 01-08-2024 Telephone encounter Note TC to Kaylyn who is informed of below. ROBBI Bazan [facility] 01-08-2024 Miscellaneous Notes TC to Kaylyn who is informed of below. ROBBI Bazan Please return call and let them know that yes, we will follow. Kaylyn with [facility] HH called and reports Pt will be discharged from [facility] Rehab on 01/09/24. Pt was admitted due to fall and broke hip, they did a L hip repair. They are requesting additional PT/OT. She is asking if provider will follow HH orders. documented in this encounter [facility] 01-08-2024 Telephone encounter Note Please return call and let them know that yes, we will follow. [facility] Work Phone: 01-08-2024 Telephone encounter Note Kaylyn with [facility] HH called and reports Pt will be discharged from [facility] Rehab on 01/09/24. Pt was admitted due to fall and broke hip, they did a L hip repair. They are requesting additional PT/OT. She is asking if provider will follow HH orders. [facility] 12-28-2023 Telephone encounter Note Rec'd novolog flex pen 3 boxes lot number [id number] expt date 02/19/25. 2 boxes of tresiba u100 lot number [id number] ext date 12/20/25 4 boxes of ozempic 4mg/3ml pens lot number [id number] exp date 02/19/26. In review pt hs been admitted to [facility] then to TCU for broken hip and rehab. Will make contact with pt when d/c from [facility] TCU [facility] 12-24-2023 Note [facility] Medical Records Department [address] [place] [address] History Physical Exam 12/24/23 1743 MR#: [id number] Acct: [id number] Name: JING MCKEON Rep #: [id number] : 1955 68 From: Bruce Medina DO PCP: Dr. Son Zambrano MD Status:ADM IN Location: [place] [address] HPI - General General Date of Admission: 12/24/23 Date of Service: 12/24/23 Chief Complaint: Hip fracture HPI Narrative JING MCKEON, is a 68 M with a PMH of diabetes mellitus type 2, nephrolithiasis, GERD, asthma, dyslipidemia, glaucoma and BPH who presented to the emergency department at [facility] on 12/22/2023 after a mechanical fall at home complaining of left hip pain. Plain x-ray of the hip showed findings concerning for nondisplaced left intertrochanteric femur fracture. Dr. Douglas Schreiber was consulted and requested a CT scan for surgical planning. CT verified a left intertrochanteric femur fracture with mild impaction and comminution of the lesser trochanter. There was moderate bilateral hip osteoarthritis. He was admitted to the hospitalist service with consult to Dr. Schreiber. On 12/23/2023 he underwent left hip open reduction internal fixation with an intramedullary nail. He had no significant post op complications and he was transferred to the acute inpt rehab units at [facility] on 12/24/23 for 3 hours of therapy daily to restore function/independence at or near his level prior to the fall/hip FX. Jing tells me that he is sleeping well. He denies lightheadedness, chest pain, shortness of breath, cough, palpitations, nausea/vomiting/abdominal pain, dysuria and calf tenderness. He tells me that when he is lying in bed his pain is a 1-2. When he is bearing weight the pain increases and he does not feel like it is being well controlled. He had 2 oxycodone 5 mg yesterday and none today. He is agreeable to scheduling the Oxycodone for a few days and then transitioning to PRN. This will facilitate better progress with therapy. Drinks Mountain Dew 3 or more cans a day and has urinary frequency and urgency during the day. Gets up to urinate only at most 1 time a night and often has no need to urinate at night. will often have to urinate again 10 minutes after he just urinated during the day. [facility] Medical History (Updated 12/25/23 @ 12:[address] Bruce Medina, ) Nephrolithiasis Diabetic retinopathy BPH (benign prostatic hyperplasia) Glaucoma Diabetes type 2, controlled Bilateral cataracts GERD (gastroesophageal reflux disease) Asthma Home Medications ???Medication ???Instructions ???Recorded ???Last Taken ???Type dorzolamide 2 % eye drops See Rx Instructions ophthalmic 10/06/15 Unknown History (eye) BID glaucoma latanoprost 0.005 % eye drops 1 drp ophthalmic (eye) DAILY 10/06/15 Unknown History glaucoma simvastatin 40 mg tablet 40 mg PO DAILY cholesterol 10/06/15 12/23/23 History tamsulosin 0.4 mg capsule 0.4 mg PO BID prostate 10/06/15 12/24/23 History timolol 0.5 % eye drops 1 drp ophthalmic (eye) BID glaucoma 10/06/15 Unknown History aspirin 81 mg tablet,delayed 81 mg PO QDAY blood thin 07/03/17 Unknown History release (Adult Low Dose Aspirin) vitamin B complex 1 cap PO BID supplement 07/03/17 Unknown History enalapril maleate 20 mg tablet 20 mg PO BID hypertension 07/24/17 12/24/23 History acetaminophen 500 mg tablet 1,000 mg (2 x 500 mg) PO Q8 pain 12/24/23 12/24/23 Rx #0 tabs aspirin 81 mg chewable tablet 81 mg PO BIDCM heart 30 days #0 12/24/23 12/24/23 Rx tabs insulin glargine-yfgn 100 unit/mL 20 unit (0.2 mL) subcut QHS DM #0 12/24/23 12/23/23 Rx (3 mL) subcutaneous pen mL insulin lispro 100 unit/mL 7 unit (0.07 mL) subcut TIDAC DM 12/24/23 12/24/23 Rx subcutaneous pen (Humalog KwikPen #0 mL (U-100) Insulin) oxycodone 5 mg tablet 5 mg PO Q4H PRN PRN Pain Score 12/24/23 Unknown Rx 4-10 #0 tabs Allergy/AdvReac Type Severity Reaction Status Date / Time No Known Allergies Allergy Verified 12/22/23 16:58 Family History Father Asthma Kidney disease Cancer Brother Heart disease Asthma Sister Heart disease Surgical History History of open reduction and internal fixation (ORIF) procedure H/O skin graft H/O eye surgery Social History household members: spouse Smoking Status: Never smoker second hand exposure: No alcohol intake: never substance use type: does not use caffeine: No ROS Constitutional Constitutional: Reports weakness; Denies anorexia, change in weight, chills, fatigue, fever(s) or night sweats Eyes Eyes: Denies change in vision, discharge from eye(s), double vision, eye pain or loss (more content not included)... [facility] 12-24-2023 Note [facility] Medical Records Department [address] [place] [address] Discharge Summary 12/24/23 1413 MR#: [id number] Acct: [id number] Name: JING MCKEON Rep #: [id number] : 1955 68 From: Andrew Francisco DO PCP: Dr. Son Zambrano MD Status:ADM IN [id number] Prov[facility] Date of Admission: 12/22/23 Primary Care Physician: Dr. Son Zambrano MD Consultations 12/22/23 20:30 Consult: Orthopedics Routine Consulting Provider: MIGUELITO MASON Reason for Consult: Hip fracture EMERGENT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 problems, denies sciatica, notes knee/foot trouble, notes arthritis, or denies gout. Last Colonoscopy: 2017 Cristela Steward RN PHYSICAL EXAMINATION: General: The patient is 68 year old male, well nourished, well hydrated in no acute distress. The patient is oriented to time, place, and person. VITALS: Blood pressure 136/84, pulse 89, temperature 36.1 C (96.9 F), resp. rate 19, height 170.2 cm (5' 7), weight 80.6 kg (177 lb 12.8 oz), SpO2 96%. Body mass index is 27.85 kg/m . Head: Normal cephalic, atraumatic Eyes: pupils are equally round, sclera are clear/anicteric Neck is supple with no tracheal deviation Cardiac: normal heart sounds, regular Respiratory: Normal respiratory excursion and pattern. Abdominal exam: benign Extremities: no clubbing, cyanosis or edema. Neuro: non focal Psych: normal mood Assessment IMPRESSION: history of colon polyps PLAN: I have discussed the above with the patient. I have offered colonoscopy , possible biopsies I have explained the procedure to the patient. I have counseled the patient as to the risks of the procedure, including but not limited to: infection, bleeding, injury to any intrabdominal organs such as liver/spleen, perforation of the GI tract, inability to complete the procedure, complications of anesthesia, etc. - the patient understands. The patient wishes to proceed. I have answered all questions to the patient s satisfaction and the patient has no further questions. My clinic staff has educated the patient as to the colon cleansing regimen and I have prescribed Golytely for the colon cleansing solution. The patient will be scheduled for the procedure at [facility]. He has been instructed to discontinue Ozempic one week prior to procedure (that is, he is to be off Ozempic for at least a week) Diagnoses: (Z12.11) Colon cancer screening I have confirmed and edited as necessary, the PFSH and ROS obtained by others. Consultation requested by Dr. Son Zambrano for an opinion regarding patient's screening for colon cancer. My final recommendations will be communicated back to the requesting physician by way of shared Medical record or letter to requesting physician via US mail. Patient was seen in conjunction with Michele Koch NP. Medical Decision Making: Problems: Low: Stable chronic illness Risk: Low: Low risk from testing/treatment Medical Decision Making Level: 3 - Low . Taylor Ramey MD documented in this encounter [facility] 11-08-2023 Miscellaneous Notes Called patient. Verified name and date of . Patient informed of results/recommendations. Verbalizes understanding. Michele Waller LPN Called patient. No answer- voicemail not set up. Michele Waller LPN ----- Message from Marcella Gee APRN.LIZZ JACINTO sent at 11/06/2023 2:28 PM EDT ----- Team - patient does not have [facility]. Call patient please. Inform patient: Recent PSA about the same, Free PSA is 33% which means a lower probability of finding prostate cancer if we would perform a bx. I do recommend to have the prostate MRI which looks like is scheduled for December. Marcella Gee DNP, OPHELIA Department of Urology [facility] documented in this encounter [facility] 10-22-2023 History of Present illness Narrative This note was created using [employer]. Subjective Jing Mckeon is a 68 year old male. Patient presents with: Follow Up SUBJECTIVE: Jing Mckeon is a 68 year old year old gentleman here today for follow up appointment for review of medical conditions. --concerned about : Feet being red; he does not see it. Mole on back--she thinks might be a little darker; he does not have any symptoms from it (pain. itching or bleeding) He noted concern: - Pain in right knee History of present illness - Patient's noticed redness in his feet, patient doesn't perceive it - No pain or discomfort in feet - Good pulses in ankles - No numbness or tingling in feet - Good sensation in feet - Spot on back, no pain or bleeding, thinks it's getting bigger - Right knee pain when sitting in a chair, not noticed while driving or when leg propped up and extended - Pain alleviated with icy hot during stationary bike exercise - Knee pain after a really long walk (over an hour), still recovering from it - Right knee pain has been present for about a year - No stretching exercises before biking Past surgical history Cyst removed from chest a few years ago, cyst has reappeared Social history Exercises on a stationary bike Current medications included - Metoprolol - Allopril - Simvastatin - Tamsulosin - Insulin Sugars controlled well overall. See assessment and plan for other issues addressed. PAST MEDICAL HISTORY Diagnosis Date Benign neoplasm of colon BPH without obstruction/lower urinary tract symptoms 04/01/2012 Carpal tunnel syndrome Degeneration of lumbar or lumbosacral intervertebral disc 05/02/2008 Elevated prostate specific antigen (PSA) 07/2023 Essential hypertension, benign Glaucoma Hemorrhage of rectum and anus Hyperplasia of prostate Primary hypertension Pure hypercholesterolemia Gets labs done at [facility] for MIQUEL Siddiqui Type II or unspecified type diabetes mellitus without mention of complication, uncontrolled Continues to follow with MIQUEL Siddiqui CNP/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--gets labs through [facility] Unspecified glaucoma(365.9) Current Outpatient Medications Medication Sig flash glucose scanning reader (FREESTYLE LUIZA 2 READER) Use to check blood sugars once a day. flash glucose sensor (FREESTYLE LUIZA 2 SENSOR) kit Ust to check blood sugars once daily. Please apply free voucher for 1 sensor, pt to bring in insulin aspart U-100 (NOVOLOG FLEXPEN U-100 INSULIN) 100 unit/mL (3 mL) Inject 10 units before breakfast, 10 units before lunch, and 12 units before dinner as directed. Through [employer] Patient Assistance. insulin degludec (TRESIBA FLEXTOUCH U-100) 100 unit/mL (3 mL) injection pen Inject 20 Units subcutaneously every morning. Patient Assistance Medication metoprolol succinate ER (TOPROL XL) 25 mg 24 hr tablet Take 1 tablet by mouth once daily. enalapril (VASOTEC) 20 mg tablet Take 1 tablet by mouth twice daily. simvastatin (ZOCOR) 40 mg tablet Take 1 tablet by mouth daily at bedtime. tamsulosin (FLOMAX) 0.4 mg Take 2 capsules by mouth daily at bedtime. semaglutide (OZEMPIC) 1 mg/dose (4 mg/3 mL) pen Inject 1 mg subcutaneously one time a week. meclizine (ANTIVERT) 25 mg tab Take 1 tablet by mouth three times daily as needed (dizziness). glucagon (GVOKE HYPOPEN 2-PACK) 0.5 mg/0.1 mL AutoInjector Use to treat severe hypoglycemic episode as recommend on product labeling. (Patient not taking: Reported on 03/19/2023) glucose 4 gram chewable tablet Take 4 tablets by mouth as needed. Insulin [place], Disposable, (BD ULTRA-FINE DONNIE PEN NEEDLE) 32 gauge x 5/32 Use as directed with insulin injections three times daily (Patient not taking: Reported on 09/17/2023) albuterol HFA (VENTOLIN HFA) 90 mcg/actuation inhaler Inhale 2 Puffs as instructed every 4 hours as needed for Wheezing/Shortness of Breath. Insulin Syringe-Needle U-100 (BD INSULIN SYRINGE UF II) 0.5 mL 31 gauge x 5/16 syrg Use as directed with insulin injections three times daily (Patient not taking: Reported on 09/17/2023) timolol maleate (TIMOPTIC) 0.25 % ophthalmic solution Use 1 Drop in both eyes two times a day. Blood Sugar Diagnostic, Drum (ACCU-CHEK COMPACT TEST) Strp Testing 2-3 times daily lancets(FREESTYLE LANCETS) Use as directed. (Patient not taking: Reported on 09/17/2023) XALATAN 0.005 % EYE DROPS Use 1 Drop in both eyes once daily. COSOPT 2 %-0.5 % EYE DROPS Use in eyes. ASPIRIN 81 MG TAB Take one (1) tablet daily . B COMPLEX CAP take one tablet daily MULTIVITAMIN TAB Take one(1) tablet daily. No current facility-administered medications for this visit. Review of Systems Objective BP 160/80 Pulse 82 Resp 16 Wt 79.3 kg (174 lb 12.8 oz) BMI 27.38 kg/m Last 5 Encounter Wt Readings: Date: Wt: 10/22/2023 79.3 kg (174 lb 12.8 oz) 09/17/2023 79.9 kg (176 lb 3.2 oz) 08/10/2023 80 kg (176 lb 6.4 oz) 03/19/2023 76.2 kg (168 lb) 11/13/2022 79.8 kg (176 lb) No waist measurement recorded Estimated body mass index is 27.38 kg/m as calculated from the following: Height as of 09/17/23: 170.2 cm (5' 7). Weight as of this encounter: 79.3 kg (174 lb 12.8 oz). Last 5 Encounter BP Readings: Date: BP: 10/22/2023 160/80 09/17/2023 144/76[Marcella Gee notified of blood pressure.[ 08/10/2023 120/78 03/19/2023 128/60 11/13/2022 138/72 Physical Exam Vitals reviewed. Constitutional: Appearance: Normal appearance. Eyes: Conjunctiva/sclera: Conjunctivae normal. Cardiovascular: Rate and Rhythm: Normal rate and regular rhythm. Heart sounds: Normal heart sounds. Pulmonary: Effort: Pulmonary effort is normal. Breath sounds: Normal breath sounds. Musculoskeletal: Right lower leg: No edema. Left lower leg: No edema. Skin: General: Skin is warm and dry. Comments: Sebaceous cyst right breast close to nipple. SK on back about 1 cm diameter Neurological: General: No focal deficit present. Mental Status: He is alert and oriented to person, place, and time. Psychiatric: Mood and Affect: Mood normal. Behavior: Behavior normal. Thought Content: Thought content normal. Judgment: Judgment normal. Feet:Shoes and socks removed, Are you having foot pain: No, No deformities, ulcers, calluses, normal distal pulses, sensitive to 10 gm monofilament, and great toenails with some yellowing and thickening - Feet not bright red - Good pulses in ankles Hemoglobin A1C (%) Date Value 07/14/2023 7.5 11/06/2022 7.3 07/10/2022 7.5 03/03/2022 7.7 10/26/2021 7.7 06/27/2021 7.7 11/01/2020 9.3 11/08/2019 10.0 07/07/2019 9.9 12/30/2018 8.9 Assessment and Plan Encounter Diagnosis ICD-10-CM 1. Type 2 diabetes mellitus with microalbuminuria, with long-term current use of insulin (HCC) E11.29 COMP METABOLIC PANEL R80.9 HGB A1C Z79.4 Good control. Continue present management 2. Benign non-nodular prostatic hyperplasia with lower urinary tract symptoms N40.1 tamsulosin (FLOMAX) 0.4 mg 0.4 mg Flomax generic not adequate every day 3. Chronic pain of right knee M25.561 G89.29 1 to 1.5 years. See below 4. Primary hypertension I10 enalapril (VASOTEC) 20 mg tablet metoprolol succinate ER (TOPROL XL) 25 mg 24 hr tablet COMP METABOLIC PANEL BP up today. Monitor fro now. If not getting back under good contro, adjust meds. 5. Pure hypercholesterolemia E78.00 simvastatin (ZOCOR) 40 mg tablet Check labs and adjust med as needed 6. Colon cancer screening Z12.11 CONSULT TO GENERAL SURGERY Above issues addressed with patient. Patient involved in shared decision making for management of medical issues. History and medications reviewed. Epic updated as needed Refills and/or prescriptions taken care of and meds adjusted as indicated after reviewed history, exam and labs. Health Maintenance reviewed. Updated record and/or ordered tests as recorded. Encouraged on efforts at healthy diet and regular exercise and adequate sleep. Plan - Monitor right knee pain - Consider physical therapy if knee pain persists - Consider knee injections if pain worsens - Start stretching exercises before biking - Monitor seborrheic keratosis on back - Optional removal of sebaceous cyst on right chest area - Colon cancer screening with general surgeons - Stay on same meds for DM as well. Prescription Refills for metoprolol, allopril, simvastatin, and tamsulosin Appointments - Follow-up in four months - Lab work tomorrow for PSA - Appointment with David Billings for colonoscopy setup Note drafted by [employer]. Note reviewed, edited, and signed by the visit provider. Son Zambrano MD documented in this encounter [facility] 09-27-2023 Miscellaneous Notes Pt calling in and states he spoke with [facility] and was told that chart notes needed to be sent to them for him to get his refill on his [employer]. Pt states he doesn't have the phone number for them. Attempted to find number in medical record with no success. Called pt back and asked again for phone number since pt said he had spoke with them. Found phone number which is [phone]. Called and spoke with Viktoriya at [facility]. She states last OV note with PCP office is what they need. Appt was 08/10/23-faxed OV notes to [facility] at fax number [phone] documented in this encounter [facility] 09-21-2023 Miscellaneous Notes Pt has picked all on from the office. Pt notified these are ready for pick and shovel man. Rec'd from [employer] 5 boxes of novofine 32 G tips. 100 needles in each box lot number [id number] ex date 02/20/2028 2 boxes of tresiba U100 lot number [id number] and exp date 10/20/2025 4 boxes of ozempic 4mg/3ml lot number [id number] and exp date 04/21/2026 3 boxes of novolog flex arthur 100units /ml lot number [id number] and exp date 10/20/2025 documented in this encounter [facility] 09-20-2023 History of Present illness Narrative Images from the original note were not included. Primary Care Pharmacy Visit CC (Reason for Consult): (E11.29, R80.9, Z79.4) Type 2 diabetes mellitus with microalbuminuria, with long-term current use of insulin (HCC) (primary encounter diagnosis) Goal(s): A1c <8% Last Collaborating Provider Visit: 08/10/23 with Mary Witt CNP Jing Mckeon is a 68 year old male presenting for follow up visit in person. Patient consents to pharmacy collaborative practice agreement. Last Pharmacy Visit: 07/05/23 HPI: Reports doing well States BGs have been pretty good Just got a new Luiza 2 reader last week. Old meter would not keep a charge so he had to buy a new one Tolerating Ozempic well, feels like it does curb his appetite significantly Current DM Medications: Ozempic 1 mg once weekly on Mondays Tresiba 20 units once daily at bedtime Novolog 10 units with breakfast, 10 units with lunch, 12 units with dinner Diet Denies any recent changes Many times will skip breakfast GLYCEMIC CONTROL: Glucometer present at visit: Yes Hypoglycemia: Yes per CGM report; however, denies any symptoms CGM Data Past medical history reviewed. ALLERGIES No Known Allergies Current Outpatient Medications Medication Sig Dispense Refill flash glucose scanning reader (FREESTYLE LUIZA 2 READER) Use to check blood sugars once a day. 1 Each 0 flash glucose sensor (FREESTYLE LUIZA 2 SENSOR) kit Ust to check blood sugars once daily. Please apply free voucher for 1 sensor, pt to bring in 1 Each 1 insulin aspart U-100 (NOVOLOG FLEXPEN U-100 INSULIN) 100 unit/mL (3 mL) Inject 10 units before breakfast, 10 units before lunch, and 12 units before dinner as directed. Through [employer] Patient Assistance. insulin degludec (TRESIBA FLEXTOUCH U-100) 100 unit/mL (3 mL) injection pen Inject 20 Units subcutaneously every morning. Patient Assistance Medication metoprolol succinate ER (TOPROL XL) 25 mg 24 hr tablet Take 1 tablet by mouth once daily. 90 tablet 3 enalapril (VASOTEC) 20 mg tablet Take 1 tablet by mouth twice daily. 180 tablet 3 simvastatin (ZOCOR) 40 mg tablet Take 1 tablet by mouth daily at bedtime. 90 tablet 3 tamsulosin (FLOMAX) 0.4 mg Take 2 capsules by mouth daily at bedtime. 180 capsule 3 semaglutide (OZEMPIC) 1 mg/dose (4 mg/3 mL) pen Inject 1 mg subcutaneously one time a week. meclizine (ANTIVERT) 25 mg tab Take 1 tablet by mouth three times daily as needed (dizziness). 30 tablet 1 glucagon (GVOKE HYPOPEN 2-PACK) 0.5 mg/0.1 mL AutoInjector Use to treat severe hypoglycemic episode as recommend on product labeling. (Patient not taking: Reported on 03/19/2023) 0.2 mL 3 glucose 4 gram chewable tablet Take 4 tablets by mouth as needed. 30 tablet 2 Insulin [place], Disposable, (BD ULTRA-FINE DONNIE PEN NEEDLE) 32 gauge x 5/32 Use as directed with insulin injections three times daily (Patient not taking: Reported on 09/17/2023) 100 Each 11 albuterol HFA (VENTOLIN HFA) 90 mcg/actuation inhaler Inhale 2 Puffs as instructed every 4 hours as needed for Wheezing/Shortness of Breath. 18 g 3 Insulin Syringe-Needle U-100 (BD INSULIN SYRINGE UF II) 0.5 mL 31 gauge x 5/16 syrg Use as directed with insulin injections three times daily (Patient not taking: Reported on 09/17/2023) 300 Syringe 3 timolol maleate (TIMOPTIC) 0.25 % ophthalmic solution Use 1 Drop in both eyes two times a day. Blood Sugar Diagnostic, Drum (ACCU-CHEK COMPACT TEST) Strp Testing 2-3 times daily 306 Strip 3 lancets(FREESTYLE LANCETS) Use as directed. (Patient not taking: Reported on 09/17/2023) 300 3 XALATAN 0.005 % EYE DROPS Use 1 Drop in both eyes once daily. 0 COSOPT 2 %-0.5 % EYE DROPS Use in eyes. 0 ASPIRIN 81 MG TAB Take one (1) tablet daily . 0 B COMPLEX CAP take one tablet daily 0 MULTIVITAMIN TAB Take one(1) tablet daily. 0 No current facility-administered medications for this visit. Pill bottles are not present. Adherence: denies missed doses. Rx coverage: Payor: MEDICARE / Plan: MEDICARE A AND B / Product Type: Medicare / Medications affordable? Enrolled in [employer] PAP (Tresiba, Novolog and Ozempic) PHARMACOTHERAPY PREVENTATIVE MEDS: On LARA/ARB: Yes On Statin: Yes On ASA: Yes EXAM: There were no vitals taken for this visit. Last 3 Encounter BP Readings: Date: BP: 09/17/2023 144/76[Marcella Gee notified of blood pressure.[ 08/10/2023 120/78 03/19/2023 128/60 Wt: 79.9 kg (176 lb 3.2 oz) BMI: 27.60 kg/(m^2) LABS: Lab Results Component Value Date HBA1C 7.5 07/14/2023 HBA1C 7.3 11/06/2022 HBA1C 7.5 07/10/2022 HBA1C 7.7 06/27/2021 HBA1C 9.3 11/01/2020 HBA1C 10.0 11/08/2019 Glucose 99 07/14/2023 BUN 15 07/14/2023 Creatinine 0.76 07/14/2023 NA 141 07/14/2023 K 4.2 07/14/2023 Chloride 106 07/14/2023 CO2 26 07/14/2023 Protein, Total 6.7 07/14/2023 Albumin 4.0 07/14/2023 Calcium 9.7 07/14/2023 Alk Phos Total 123 07/14/2023 Bilirubin, Total 0.4 07/14/2023 AST (SGOT) 25 07/14/2023 ALT (SGPT) 15 07/14/2023 Lab Results Component Value Date CHOL 144 07/14/2023 CHOL 149 06/27/2021 LDL 68 07/14/2023 LDL 67 06/27/2021 HDL 67 07/14/2023 HDL 62 06/27/2021 TG 47 07/14/2023 TG 102 06/27/2021 Albumin/Creat Ratio (mg/g) Date Value 07/14/2023 28 eGFR-All Other Races (.) Date Value 06/27/2021 >60 Estimated Glomerular Filtration Rate (mL/min/1.73m ) Date Value 07/14/2023 97 ASSESSMENT/PLAN: 1. Type 2 diabetes mellitus with microalbuminuria, with long-term current use of insulin ([facility]) - ICD9: 250.40, 791.0, V58.67, ICD10: E11.29, R80.9, Z79.4 - Controlled - Continue current medications - Statin prescribed - simvastatin - Blood glucose monitoring on a continuous glucose monitoring schedule - Counseled on healthy diet and regular exercise - Follow up in 3 months, sooner should any other issues arise. Follow Up: Next PCP visit: 10/22/23 Next PharmD visit: 12/13/23 Jessica Ricks PharmD Primary Care Clinical Cylinder Valve Repairer The majority of the pharmacy visit (> 50%) was spent counseling and/or coordinating care for the patient. interaction: face to face time was 20 minutes. documented in this encounter [facility] 09-20-2023 Instructions Jessica Ricks RPh - 09/20/2023 10:30 AM EST Continue current medications: Ozempic 1 mg once weekly on Mondays Tresiba 20 units once daily at bedtime Novolog 10 units with breakfast, 10 units with lunch, 12 units with dinner documented in this encounter [facility] 09-15-2023 Miscellaneous Notes The following approved medication requests have been transmitted electronically. Requested Prescriptions Signed Prescriptions Disp Refills flash glucose scanning reader (FREESTYLE LUIZA 2 READER) 1 Each 0 Sig: Use to check blood sugars once a day. Authorizing Provider: ADALID CANDELARIA MD Patient calling with request for script for Freestyle Luiza 2 meter. His meter stopped working and Flora Lan won't replace it without a new script. Patient requesting script be sent today. Pended. Joyce Etienne RN documented in this encounter [facility] 08-30-2023 History of Present illness Narrative Called [employer] automated line to check on status of applcation faxed with income documents. Patient was approved with [employer] for medication(s) Tresiba Flextouch, Novolog Flexpen, Ozempic & Pen [place] through 07/22/2024. PAP Team will forward any approval faxes sent over with patient [employer] ID & information to patient and update chart. Brandon Rios [facility] E-Mail : [email or web address] Phone : [phone] Fax : [phone] documented in this encounter [facility] 07-12-2023 Miscellaneous Notes Date of last office: 03/19/2023 Date of next office visit: 10/22/2023 Requested Prescriptions Pending Prescriptions Disp Refills flash glucose sensor (FREESTYLE LUIZA 2 SENSOR) kit 1 Each 0 Sig: Ust to check blood sugars once daily. Please apply free voucher for 1 sensor, pt to bring in Date of Last Labs: 11/06/2022 Please advise. Thank you. Samara Puente RN. documented in this encounter [facility] 07-05-2023 History of Present illness Narrative Primary Care Pharmacy Visit CC (Reason for Consult): (E11.29, R80.9, Z79.4) Type 2 diabetes mellitus with microalbuminuria, with long-term current use of insulin ([facility]) (primary encounter diagnosis) Goal(s): A1c <8% Last Collaborating Provider Visit: 03/19/[address] Kenya Ch Tonya Mckeon is a 67 year old male presenting for follow up visit in person. Patient consents to pharmacy collaborative practice agreement. Last Pharmacy Visit: 05/17/23 - Tresiba decreased to 20 units daily, and Novolog decreased to 10-10-12 HPI: Reports doing well overall Recently had to do eye injections once, and then will need every 6 weeks States he is currently waiting for next shipment of Luiza sensors from [employer], was told they should be here by tomorrow. Is on his last sensor now Current DM Medications: Ozempic 1 mg once weekly on Mondays Tresiba 20 units once daily at bedtime Novolog 10 units with breakfast, 10 units with lunch, 12 units with dinner Diet Denies any recent changes Eating 3 meals/day Breakfast ~8-9am, lunch ~12-1p, dinner ~6-7p GLYCEMIC CONTROL: Glucometer present at visit: Yes Hypoglycemia: No CGM Data Sensor usage: 80% (Goal >70%) Hypoglycemia events: 0%, 2 events in the last 30 days (1 between 6-12 and 1 between 12-6p), none in last 14 days Date range Overall AVG 12a-6a 6a-12p 12p-6p 6p-12a TIME IN RANGE 7 day 167 137 173 197 173 ABOVE 36% 14 day 171 139 171 195 207 IN (70-180) 64% 30 day 182 155 178 201 214 BELOW 0% Past medical history reviewed. ALLERGIES No Known Allergies Current Outpatient Medications Medication Sig Dispense Refill insulin aspart U-100 (NOVOLOG FLEXPEN U-100 INSULIN) 100 unit/mL (3 mL) Inject 10 units before breakfast, 10 units before lunch, and 12 units before dinner as directed. Through [employer] Patient Assistance. insulin degludec (TRESIBA FLEXTOUCH U-100) 100 unit/mL (3 mL) injection pen Inject 20 Units subcutaneously every morning. Patient Assistance Medication flash glucose sensor (GeneAssessSTYLE LUIZA 2 SENSOR) kit Ust to check blood sugars once daily. Please apply free voucher for 1 sensor, pt to bring in 1 Each 0 metoprolol succinate ER (TOPROL XL) 25 mg 24 hr tablet Take 1 tablet by mouth once daily. 90 tablet 3 enalapril (VASOTEC) 20 mg tablet Take 1 tablet by mouth twice daily. 180 tablet 3 simvastatin (ZOCOR) 40 mg tablet Take 1 tablet by mouth daily at bedtime. 90 tablet 3 tamsulosin (FLOMAX) 0.4 mg Take 2 capsules by mouth daily at bedtime. 180 capsule 3 semaglutide (OZEMPIC) 1 mg/dose (4 mg/3 mL) pen Inject 1 mg subcutaneously one time a week. meclizine (ANTIVERT) 25 mg tab Take 1 tablet by mouth three times daily as needed (dizziness). 30 tablet 1 glucagon (GVOKE HYPOPEN 2-PACK) 0.5 mg/0.1 mL AutoInjector Use to treat severe hypoglycemic episode as recommend on product labeling. (Patient not taking: Reported on 03/19/2023) 0.2 mL 3 glucose 4 gram chewable tablet Take 4 tablets by mouth as needed. 30 tablet 2 Insulin [place], Disposable, (BD ULTRA-FINE DONNIE PEN NEEDLE) 32 gauge x 5/32 Use as directed with insulin injections three times daily 100 Each 11 albuterol HFA (VENTOLIN HFA) 90 mcg/actuation inhaler Inhale 2 Puffs as instructed every 4 hours as needed for Wheezing/Shortness of Breath. 18 g 3 Insulin Syringe-Needle U-100 (BD INSULIN SYRINGE UF II) 0.5 mL 31 gauge x 5/16 syrg Use as directed with insulin injections three times daily 300 Syringe 3 timolol maleate (TIMOPTIC) 0.25 % ophthalmic solution Use 1 Drop in both eyes twice daily. (Patient not taking: Reported on 03/19/2023) Blood Sugar Diagnostic, Drum (ACCU-CHEK COMPACT TEST) Strp Testing 2-3 times daily (Patient not taking: Reported on 03/19/2023) 306 Strip 3 lancets(FREESTYLE LANCETS) Use as directed. 300 3 XALATAN 0.005 % EYE DROPS once daily both eyes 0 COSOPT 2 %-0.5 % EYE DROPS Use in eyes. (Patient not taking: Reported on 03/19/2023) 0 ASPIRIN 81 MG TAB Take one (1) tablet daily . 0 B COMPLEX CAP take one tablet daily 0 MULTIVITAMIN TAB Take one(1) tablet daily. 0 No current facility-administered medications for this visit. Pill bottles are not present. Adherence: denies missed doses. Rx coverage: Payor: MEDICARE / Plan: MEDICARE A AND B / Product Type: Medicare / Medications affordable? Enrolled in [employer] (Tresiba, Novolog and Ozempic) PHARMACOTHERAPY PREVENTATIVE MEDS: On LARA/ARB: Yes On Statin: Yes On ASA: Yes EXAM: There were no vitals taken for this visit. Last 3 Encounter BP Readings: Date: BP: 03/19/2023 128/60 11/13/2022 138/72 09/15/2022 138/80 Wt: 76.2 kg (168 lb) BMI: 30.73 kg/(m^2) LABS: Lab Results Component Value Date HBA1C 7.3 11/06/2022 HBA1C 7.5 07/10/2022 HBA1C 7.7 03/03/2022 HBA1C 7.7 06/27/2021 HBA1C 9.3 11/01/2020 HBA1C 10.0 11/08/2019 Glucose 67 11/06/2022 BUN 20 11/06/2022 Creatinine 0.91 11/06/2022 NA 141 11/06/2022 K 4.1 11/06/2022 Chloride 106 11/06/2022 CO2 25 11/06/2022 Protein, Total 7.0 11/06/2022 Albumin 4.1 11/06/2022 Calcium 9.7 11/06/2022 Alk Phos Total 102 11/06/2022 Bilirubin, Total 0.5 11/06/2022 AST (SGOT) 29 11/06/2022 ALT (SGPT) 22 11/06/2022 Lab Results Component Value Date CHOL 174 07/10/2022 CHOL 149 06/27/2021 LDL 94 07/10/2022 LDL 67 06/27/2021 HDL 66 07/10/2022 HDL 62 06/27/2021 TG 72 07/10/2022 TG 102 06/27/2021 Albumin/Creat Ratio (mg/g) Date Value 11/06/2022 eGFR-All Other Races (.) Date Value 06/27/2021 >60 Estimated Glomerular Filtration Rate (mL/min/1.73m ) Date Value 11/06/2022 91 ASSESSMENT/PLAN: 1. Type 2 diabetes mellitus with microalbuminuria, with long-term current use of insulin (HCC) - ICD9: 250.40, 791.0, V58.67, ICD10: E11.29, R80.9, Z79.4 - Controlled. Last A1c at goal of <8%; due for updated A1c. CGM shows TIR at goal, with less frequent episodes of hypoglycemia. Fluctuations in readings likely due to fluctuation in diet. - Continue current medications - Statin prescribed - simvastatin - Blood glucose monitoring on a continuous glucose monitoring schedule - Counseled on healthy diet and regular exercise - Follow up in 2 months, sooner should any other issues arise. - Instructed patient to drop off proof of income paperwork for patient assistance renewal application Follow Up: Next PCP visit: 10/22/23 Next PharmD visit: 09/20/23 Jessica Ricks PharmD Primary Care Clinical Cylinder Valve Repairer The majority of the pharmacy visit (> 50%) was spent counseling and/or coordinating care for the patient. interaction: face to face time was 20 minutes. documented in this encounter [facility] 07-05-2023 Instructions Jessica Ricks RPh - 07/05/2023 10:00 AM EST Continue your current medications Please bring in a copy of proof of income. Drop off at front office specialist and have them place in Pharmacy mailbox for Jessica Ricks RPh documented in this encounter [facility] 05-31-2023 Miscellaneous Notes Received provider signature. Placed referral to pharmacy patient assistance team for 2023 renewal. Faxed application with patient and provider signature to technicians. Jessica Ricks PharmD Primary Care Clinical Cylinder Valve Repairer Completed [facility] PAP re-enrollment application. Will submit once patient income documents received and provider form complete. Faxed to provider for provider signature. Once provider signature received, please return to pharmacy mailbox. Jessica Ricks PharmD Primary Care Clinical Cylinder Valve Repairer Received patient signatures for [facility] PAP renewal application. documented in this encounter [facility] 05-23-2023 Miscellaneous Notes pt picked this up 05/17/23. pt notified. This is ready for pick and shovel man. Called both numbers again and no answer and unable to leave a voice mail. Called pt and spouse with no answer and unable to leave a message. Rec'd from [facility] 5 boxes of novofine 32 G 1/4inch pen needles. Lot [id number] exp date 06/21/2027. 100 in each box. documented in this encounter [facility] 05-23-2023 Miscellaneous Notes This was picked up 05/21/23. Rec'd tresiba U100 2 boxes. Lot number is [id number] ex date 07/22/2025. Ozempic 4mg/3ml pens 4 boxes. Lot number [id number] exp date 10/20/2025 Novolog flex pen 100units /ml lot number [id number] exp date 08/22/2025. documented in this encounter [facility] 05-17-2023 History of Present illness Narrative Primary Care Pharmacy Visit CC (Reason for Consult): (E11.29, R80.9, Z79.4) Type 2 diabetes mellitus with microalbuminuria, with long-term current use of insulin (HCC) (primary encounter diagnosis) Goal(s): A1c <8% Last Collaborating Provider Visit: 03/19/[address] Kenya Ch Tonya Mckeon is a 67 year old male presenting for follow up visit in person. Patient consents to pharmacy collaborative practice agreement. Last Pharmacy Visit: 11/30/22 - Novolog dose with breakfast decreased HPI: Reports things are good overall, BGs have been stable lately Does get some nausea with the Ozempic occasionally, settles stomach with a cough drop and that resolves it generally Current DM Medications: Ozempic 1 mg once weekly on Mondays Tresiba 22 units once daily at bedtime Novolog 7 units with breakfast, 9 units with lunch, 9 units with dinner - taking 10-12 units with meals (doing for last 2-3 months); in last 2 weeks mostly doing 12 units with meals Diet Denies any recent changes GLYCEMIC CONTROL: Glucometer present at visit: Yes Hypoglycemia: Yes CGM Data Sensor usage: 80% (Goal >70%) Hypoglycemia events: 1%, 3 events (in last 14 days) - 1 event 12a-6a, 1 event 6a-12p, 1 event 12p-6p Date range Overall AVG 12a-6a 6a-12p 12p-6p 6p-12a TIME IN RANGE 7 day 169 149 156 181 206 ABOVE 39% 14 day 169 151 148 184 207 IN (80-180) 60% 30 day 164 144 150 172 203 BELOW 1% 90 day 168 147 153 183 193 Past medical history reviewed. ALLERGIES No Known Allergies Current Outpatient Medications Medication Sig Dispense Refill flash glucose sensor (FREESTYLE LUIZA 2 SENSOR) kit Ust to check blood sugars once daily. Please apply free voucher for 1 sensor, pt to bring in 1 Each 0 metoprolol succinate ER (TOPROL XL) 25 mg 24 hr tablet Take 1 tablet by mouth once daily. 90 tablet 3 enalapril (VASOTEC) 20 mg tablet Take 1 tablet by mouth twice daily. 180 tablet 3 simvastatin (ZOCOR) 40 mg tablet Take 1 tablet by mouth daily at bedtime. 90 tablet 3 tamsulosin (FLOMAX) 0.4 mg Take 2 capsules by mouth daily at bedtime. 180 capsule 3 insulin aspart U-100 (NOVOLOG FLEXPEN U-100 INSULIN) 100 unit/mL (3 mL) Inject 7 units before breakfast, 9 units before lunch, and 9 units before dinner as directed. Through [employer] Patient Assistance. semaglutide (OZEMPIC) 1 mg/dose (4 mg/3 mL) pen Inject 1 mg subcutaneously one time a week. insulin degludec (TRESIBA FLEXTOUCH U-100) 100 unit/mL (3 mL) injection pen Inject 22 Units subcutaneously every morning. Patient Assistance Medication meclizine (ANTIVERT) 25 mg tab Take 1 tablet by mouth three times daily as needed (dizziness). 30 tablet 1 glucagon (GVOKE HYPOPEN 2-PACK) 0.5 mg/0.1 mL AutoInjector Use to treat severe hypoglycemic episode as recommend on product labeling. (Patient not taking: Reported on 03/19/2023) 0.2 mL 3 glucose 4 gram chewable tablet Take 4 tablets by mouth as needed. 30 tablet 2 Insulin [place], Disposable, (BD ULTRA-FINE DONNIE PEN NEEDLE) 32 gauge x 5/32 Use as directed with insulin injections three times daily 100 Each 11 albuterol HFA (VENTOLIN HFA) 90 mcg/actuation inhaler Inhale 2 Puffs as instructed every 4 hours as needed for Wheezing/Shortness of Breath. 18 g 3 Insulin Syringe-Needle U-100 (BD INSULIN SYRINGE UF II) 0.5 mL 31 gauge x 5/16 syrg Use as directed with insulin injections three times daily 300 Syringe 3 timolol maleate (TIMOPTIC) 0.25 % ophthalmic solution Use 1 Drop in both eyes twice daily. (Patient not taking: Reported on 03/19/2023) Blood Sugar Diagnostic, Drum (ACCU-CHEK COMPACT TEST) Strp Testing 2-3 times daily (Patient not taking: Reported on 03/19/2023) 306 Strip 3 lancets(FREESTYLE LANCETS) Use as directed. 300 3 XALATAN 0.005 % EYE DROPS once daily both eyes 0 COSOPT 2 %-0.5 % EYE DROPS Use in eyes. (Patient not taking: Reported on 03/19/2023) 0 ASPIRIN 81 MG TAB Take one (1) tablet daily . 0 B COMPLEX CAP take one tablet daily 0 MULTIVITAMIN TAB Take one(1) tablet daily. 0 No current facility-administered medications for this visit. Pill bottles are not present. Adherence: denies missed doses. Rx coverage: Payor: MEDICARE / Plan: MEDICARE A AND B / Product Type: Medicare / Medications affordable? Enrolled in [employer] (Tresiba, Novolog and Ozempic) PHARMACOTHERAPY PREVENTATIVE MEDS: On LARA/ARB: Yes On Statin: Yes On ASA: Yes EXAM: There were no vitals taken for this visit. Last 3 Encounter BP Readings: Date: BP: 03/19/2023 128/60 11/13/2022 138/72 09/15/2022 138/80 Wt: 76.2 kg (168 lb) BMI: 30.73 kg/(m^2) LABS: Lab Results Component Value Date HBA1C 7.3 11/06/2022 HBA1C 7.5 07/10/2022 HBA1C 7.7 03/03/2022 HBA1C 7.7 06/27/2021 HBA1C 9.3 11/01/2020 HBA1C 10.0 11/08/2019 Glucose 67 11/06/2022 BUN 20 11/06/2022 Creatinine 0.91 11/06/2022 NA 141 11/06/2022 K 4.1 11/06/2022 Chloride 106 11/06/2022 CO2 25 11/06/2022 Protein, Total 7.0 11/06/2022 Albumin 4.1 11/06/2022 Calcium 9.7 11/06/2022 Alk Phos Total 102 11/06/2022 Bilirubin, Total 0.5 11/06/2022 AST (SGOT) 29 11/06/2022 ALT (SGPT) 22 11/06/2022 Lab Results Component Value Date CHOL 174 07/10/2022 CHOL 149 06/27/2021 LDL 94 07/10/2022 LDL 67 06/27/2021 HDL 66 07/10/2022 HDL 62 06/27/2021 TG 72 07/10/2022 TG 102 06/27/2021 Albumin/Creat Ratio (mg/g) Date Value 11/06/2022 17 eGFR-All Other Races (.) Date Value 06/27/2021 >60 Estimated Glomerular Filtration Rate (mL/min/1.73m ) Date Value 11/06/2022 91 ASSESSMENT/PLAN: 1. Type 2 diabetes mellitus with microalbuminuria, with long-term current use of insulin ([facility]) - ICD9: 250.40, 791.0, V58.67, ICD10: E11.29, R80.9, Z79.4 - Controlled. Last A1c at goal of <8%; due for updated A1c. CGM data shows TIR at goal, without episodes of hypoglycemia overnight and during the day. Would benefit from reduction in insulin doses. Will continue current dose of Ozempic vs titration given patient still experiencing nausea occasionally. - Decrease Insulin degludec (Tresiba) to 20 units once daily - Decrease Novolog to 10 units with breakfast, 10 units with lunch, and continue 12 units with dinner - Continue Ozempic 1 mg once weekly - Statin prescribed - simvastatin - Blood glucose monitoring on a continuous glucose monitoring schedule - Counseled on healthy diet and regular exercise - Follow up in 2 months, sooner should any other issues arise. - Initiated [employer] PAP renewal application and received patient signatures. Will complete and fax to [employer] once provider signature received. - Due for A1c (already ordered) Follow Up: Next PCP visit: 07/30/23 with JACLYN Wilkes Next PharmD visit: 07/05/23 Jessica Ricks PharmD Primary Care Clinical Cylinder Valve Repairer The majority of the pharmacy visit (> 50%) was spent counseling and/or coordinating care for the patient. interaction: face to face time was 38 minutes. documented in this encounter [facility] 05-17-2023 Instructions Jessica Ricks RPh - 05/17/2023 10:00 AM EDT Decrease Tresiba to 20 units once daily Adjust Novolog doses: Breakfast 10 units Lunch 10 units Dinner 12 units Continue Ozempic 1 mg once weekly documented in this encounter [facility] 03-21-2023 Miscellaneous Notes Appt date past, encounter closed Patient calling he has appt with PCP next Monday 03/19, he has lab orders in computer to get done prior to appt with pharmacist mid April. Patient is asking if PCP wants any lab work done prior to appt next Sunday? Please advise documented in this encounter [facility] 03-19-2023 History of Present illness Narrative This note was created using [employer]. Subjective Jing Mckeon is a 67 year old male. Patient presents with: 4 month f/u SUBJECTIVE: Jing Mckeon is a 67 year old year old gentleman here today for 4 month follow up appointment for review of medical conditions. Noted sugar low now but would have had lunch by now. CMG reading 54 but he does not feel bad. Had juices and now a protein bar. Has had lows in the past couple weeks.Not any particular time of day. Some in middle of the night. Knows can lower Tresiba or mealtime insulins if frequent lows. CGM record shows just 3 lows in past 30 days but one sensor went bad. Blood pressure controlled without adverse effects from medications. PAST MEDICAL HISTORY Diagnosis Date Benign neoplasm of colon BPH without obstruction/lower urinary tract symptoms 04/01/2012 Carpal tunnel syndrome Degeneration of lumbar or lumbosacral intervertebral disc 05/02/2008 Essential hypertension, benign Glaucoma Hemorrhage of rectum and anus Hyperplasia of prostate Pure hypercholesterolemia Gets labs done at [facility] for MIQUEL Siddiqui Type II or unspecified type diabetes mellitus without mention of complication, uncontrolled Continues to follow with MIQUEL Siddiqui, Y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--gets labs through [facility] Unspecified glaucoma(365.9) Current Outpatient Medications Medication Sig flash glucose sensor (FREESTYLE LUIZA 2 SENSOR) kit Ust to check blood sugars once daily. Please apply free voucher for 1 sensor, pt to bring in metoprolol succinate ER (TOPROL XL) 25 mg 24 hr tablet Take 1 tablet by mouth once daily. enalapril (VASOTEC) 20 mg tablet Take 1 tablet by mouth twice daily. simvastatin (ZOCOR) 40 mg tablet Take 1 tablet by mouth daily at bedtime. tamsulosin (FLOMAX) 0.4 mg Take 2 capsules by mouth daily at bedtime. insulin aspart U-100 (NOVOLOG FLEXPEN U-100 INSULIN) 100 unit/mL (3 mL) Inject 7 units before breakfast, 9 units before lunch, and 9 units before dinner as directed. Through [employer] Patient Assistance. semaglutide (OZEMPIC) 1 mg/dose (4 mg/3 mL) pen Inject 1 mg subcutaneously one time a week. insulin degludec (TRESIBA FLEXTOUCH U-100) 100 unit/mL (3 mL) injection pen Inject 22 Units subcutaneously every morning. Patient Assistance Medication meclizine (ANTIVERT) 25 mg tab Take 1 tablet by mouth three times daily as needed (dizziness). glucose 4 gram chewable tablet Take 4 tablets by mouth as needed. Insulin [place], Disposable, (BD ULTRA-FINE DONNIE PEN NEEDLE) 32 gauge x 5/32 Use as directed with insulin injections three times daily albuterol HFA (VENTOLIN HFA) 90 mcg/actuation inhaler Inhale 2 Puffs as instructed every 4 hours as needed for Wheezing/Shortness of Breath. Insulin Syringe-Needle U-100 (BD INSULIN SYRINGE UF II) 0.5 mL 31 gauge x 5/16 syrg Use as directed with insulin injections three times daily lancets(FREESTYLE LANCETS) Use as directed. XALATAN 0.005 % EYE DROPS once daily both eyes ASPIRIN 81 MG TAB Take one (1) tablet daily . B COMPLEX CAP take one tablet daily MULTIVITAMIN TAB Take one(1) tablet daily. glucagon (GVOKE HYPOPEN 2-PACK) 0.5 mg/0.1 mL AutoInjector Use to treat severe hypoglycemic episode as recommend on product labeling. (Patient not taking: Reported on 03/19/2023) timolol maleate (TIMOPTIC) 0.25 % ophthalmic solution Use 1 Drop in both eyes twice daily. (Patient not taking: Reported on 03/19/2023) Blood Sugar Diagnostic, Drum (ACCU-CHEK COMPACT TEST) Strp Testing 2-3 times daily (Patient not taking: Reported on 03/19/2023) COSOPT 2 %-0.5 % EYE DROPS Use in eyes. (Patient not taking: Reported on 03/19/2023) No current facility-administered medications for this visit. Review of Systems Objective BP 102/58 Pulse 88 Temp 36.1 C (96.9 F) Resp 18 Wt 76.2 kg (168 lb) SpO2 96% BMI 30.73 kg/m Last 5 Encounter Wt Readings: Date: Wt: 03/19/2023 76.2 kg (168 lb) 11/13/2022 79.8 kg (176 lb) 09/15/2022 78.5 kg (173 lb) 07/14/2022 76.7 kg (169 lb) 07/03/2022 75.3 kg (166 lb) No waist measurement recorded Estimated body mass index is 30.73 kg/m as calculated from the following: Height as of 05/23/17: 157.5 cm (5' 2). Weight as of this encounter: 76.2 kg (168 lb). Last 5 Encounter BP Readings: Date: BP: 03/19/2023 102/58 11/13/2022 138/72 09/15/2022 138/80 07/27/2022 131/71 07/14/2022 136/78 03/19/23 1142 03/19/23 1300 BP: 102/58 128/60 Pulse: 88 Resp: 18 Temp: 36.1 C (96.9 F) SpO2: 96% Weight: 76.2 kg (168 lb) Physical Exam Vitals reviewed. Constitutional: Appearance: Normal appearance. Eyes: Conjunctiva/sclera: Conjunctivae normal. Cardiovascular: Rate and Rhythm: Normal rate and regular rhythm. Heart sounds: Normal heart sounds. Pulmonary: Effort: Pulmonary effort is normal. Breath sounds: Normal breath sounds. Skin: General: Skin is warm and dry. Neurological: General: No focal deficit present. Mental Status: He is alert and oriented to person, place, and time. Psychiatric: Mood and Affect: Mood normal. Behavior: Behavior normal. Thought Content: Thought content normal. Judgment: Judgment normal. Labs ordered for April--extended to 05/23/23 Assessment and Plan Encounter Diagnosis ICD-10-CM 1. Type 2 diabetes mellitus with microalbuminuria, with long-term current use of insulin (HCC) E11.29 R80.9 Z79.4 2. Primary hypertension I10 3. Hypoglycemia E16.2 Treated while in office. Discussed adjusting meds and diet as indicated to prevent lows Above issues addressed with patient. Patient involved in shared decision making for management of medical issues. History and medications reviewed. Epic updated as needed Refills and/or prescriptions taken care of and meds adjusted as indicated after reviewed history, exam and labs. Health Maintenance reviewed. Updated record and/or ordered tests as recorded. Encouraged on efforts at healthy diet and regular exercise and adequate sleep. Has labs ordered to do in the fall. Further evaluation and treatment as indicated. Son Zambrano MD documented in this encounter [facility] 02-02-2023 Miscellaneous Notes pt picked up today. Pt notified. Called pt to let him know the pen needles are at this office for pick and shovel man. No answer and the mail box is full. Unable to leave a message. Re'd 5 boxes of pen needles novofine 32 G tip Lot number [id number] and exp date of 04/21/2027. documented in this encounter [facility] 01-19-2023 Miscellaneous Notes Pt picked up medicines. Pt notified this is ready for pick and shovel man. It's in the fridge on the left side. Rec'd 4 boxes of ozempic lot number [id number] exp date 07/22/2025 Rec'd 2 boxes of tresiba lot number [id number] exp date 03/22/2025 Rec'd 2 boxes of novolog flexpen lot number [id number] exp date 08/22/2024. documented in this encounter [facility] 01-09-2023 Miscellaneous Notes Patient has been identified by name and date of : Yes Patient phones for refill(s): Requested Prescriptions Pending Prescriptions Disp Refills flash glucose sensor (FREESTYLE LUIZA 2 SENSOR) kit 1 Each 0 Sig: Ust to check blood sugars once daily. Please apply free voucher for 1 sensor, pt to bring in Date of last office visit in primary care: 11/13/2022 4 month follow-up: 03/19/2023 Last 2 Encounter Wt Readings: Date: Wt: 11/13/2022 79.8 kg (176 lb) 09/15/2022 78.5 kg (173 lb) Previous labs/tests for medication: Diabetes: Hemoglobin A1C (%) Date Value 11/06/2022 7.3 07/10/2022 7.5 06/27/2021 7.7 11/01/2020 9.3 Please advise. Thank you. Rohini Hollis LPN Patient has been identified by name and date of : Yes Last office visit in this department: 11/13/2022 RX INSTRUCTIONS: Patient aware RX will be sent to pharmacy. No need to notify patient. Patient phones requesting refills as follows: Requested Prescriptions Pending Prescriptions Disp Refills flash glucose sensor (FREESTYLE LUIZA 2 SENSOR) kit 1 Each 0 Sig: Ust to check blood sugars once daily. Please apply free voucher for 1 sensor, pt to bring in Please review and advise. Ya Meyer documented in this encounter [facility] 12-26-2022 Miscellaneous Notes Signed form and office notes have been faxed back as requested. Has this been completed - form signed? He should go through usual process for obtaining records. [facility] notes from the past 6 month and PCP needing to sign form before returned. Forwarded to PCP to review and sign. Trang Sweeney LPN documented in this encounter [facility] 12-04-2022 Miscellaneous Notes Form rec'd from [facility] for refill of novolog and ozempic and tresiba. Pcp signed. This has been faxed back. documented in this encounter [facility] 11-30-2022 Miscellaneous Notes Refill order form completed and given to Ami Young to obtain PCP signature. Once signed, will need faxed to [phone]. Joce Celaya PharmD, KEVIN Primary Care Clinical Pharmacist Will hold off on filling out refill form since PharmD may make dose adjustments at upcoming appointment on 11/30. Joce Celaya PharmD, KEVIN Primary Care Clinical Pharmacist Rec'd fax for refills from [facility] for novolog Ozempic Tresiba. Please review pts med list to verify each rx and directions and doses. Will complete the refill when DM meds are reviewed. Or pt has appt with pharmacy 11/30/22. Review then? documented in this encounter [facility] 11-30-2022 History of Present illness Narrative Primary Care Pharmacy Visit CC (Reason for Consult): Diabetes Goal: A1c < 8% Collaborating Provider: Dr Zambrano Last Provider Visit: 11/13/22 Jing Mckeon is a 67 year old male presenting for follow up visit in person. Patient consents to pharmacy collaborative practice agreement. Patient is presenting today for f/up pharmacotherapy management appointment for diabetes. At last PharmD visit on 10/26, patient reported some nonadherence with insulin and being off Ozempic for several weeks. Medications were restarted, adherence encouraged, and breakfast insulin dose reduced. At last [facility] appt, no med changes made. Subjective: HPI: States his CGM reader isn't working right over the past week. Won't turn on sometimes, has been charged. Has been using fingersticks. Restarted Ozempic and tolerating well. Taking on Mondays. Thinks he has had 2 doses so far. Appetite has decreased some. Feels he is being more consistent with insulin administration. Overall feeling well. Energy level could still be better. Has prostate issue, does have frequency of urination during the day but no issue overnight. No issues with dry mouth or thirst. Sees eye doctor yearly, needs to schedule f/up visit. Does get occasional blurriness, planning to see eye doctor later this month. Occasionally fingers in right hand will feel stiff, no numbness or tingling. Current DM Medications: Semaglutide (Ozempic) 1mg weekly Insulin degludec (Tresiba) 22 units daily at bedtime Insulin aspart (Novolog) 7-9-9 units TIDAC (taking 9 units TIDAC) Past DM medications: Insulin NPH Insulin 70/30 Miglitol Rosiglitazone Current HTN Medications: Enalapril 20mg BID Metoprolol succinate 25mg once weekly GLYCEMIC CONTROL: *[place] present but hasn't been working over the past month. Not able to turn on, not able to download. Glucometer present at visit: Yes SMBG s: Date Fasting AM 2 hr PP Before Lunch 2 hr PP Before Dinner 2 hr PP Bedtime Notes 11/30 107* [phone] *Ate cereal 11/29 111* 100 59 130 233 *ate omlet 11/28 165 114 Hypoglycemia: has had a BG <70 maybe twice in past several weeks, can't recall when. Thinks before lunch and maybe once before supper? How corrected: glucose tabs Preventative Medications: On LARA/ARB: Yes On Statin: Yes ROS: Patient denies CP, SOB, LUGO, blurred vision, dizziness or lightheadedness Patient denies symptoms of hypoglycemia (sweating, anxiety, palpitations, hunger, and tremor) Patient denies symptoms of hyperglycemia (polyuria, polydipsia, polyphagia) Patient denies potential medication adverse effects DIET/EXERCISE/SOCIAL Hx: No changes Breakfast: today had cereal Lunch: today had salad with shredded steak MEDICATIONS: Pill bottles are not present Adherence: denies missed doses Pharmacy: [facility] Rx coverage: Medicare Affordability: insulin and Ozempic through PAP Diabetes supplies: [employer] [place] [facility] Organization System: original bottles, kept in cabinet ACTIVE PROBLEM LIST Primary Hypertension Pure Hypercholesterolemia Carpal Tunnel Syndrome Unspecified Glaucoma(365.9) Hemorrhage of Rectum and Anus Benign Neoplasm of Colon Hemorrhage of Gastrointestinal Tract, Unspecified Internal Hemorrhoids Without Mention of Complication 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, With Long-Term Current Use of Insulin (Hcc) History of Colonic Polyps Diverticulosis of Large Intestine Without Hemorrhage PAST MEDICAL HISTORY Diagnosis Date Benign neoplasm of colon BPH without obstruction/lower urinary tract symptoms 04/01/2012 Carpal tunnel syndrome Degeneration of lumbar or lumbosacral intervertebral disc 05/02/2008 Essential hypertension, benign Glaucoma Hemorrhage of rectum and anus Hyperplasia of prostate Pure hypercholesterolemia Gets labs done at [facility] for MIQUEL Siddiqui Type II or unspecified type diabetes mellitus without mention of complication, uncontrolled Continues to follow with MIQUEL Siddiqui, Y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--gets labs through [facility] Unspecified glaucoma(365.9) ALLERGIES No Known Allergies Medication List Medication Directions Comments Action/Plan albuterol HFA (VENTOLIN HFA) 90 mcg/actuation inhaler Inhale 2 Puffs as instructed every 4 hours as needed for Wheezing/Shortness of Breath. ASPIRIN 81 MG TAB Take one (1) tablet daily . B COMPLEX CAP take one tablet daily Blood Sugar Diagnostic, Drum (ACCU-CHEK COMPACT TEST) Strp Testing 2-3 times daily COSOPT 2 %-0.5 % EYE DROPS Use in eyes. enalapril (VASOTEC) 20 mg tablet Take 1 tablet by mouth twice daily. flash glucose sensor (FREESTYLE LUIZA 2 SENSOR) kit Ust to check blood sugars once daily. Please apply free voucher for 1 sensor, pt to bring in glucagon (GVOKE HYPOPEN 2-PACK) 0.5 mg/0.1 mL AutoInjector Use to treat severe hypoglycemic episode as recommend on product labeling. glucose 4 gram chewable tablet Take 4 tablets by mouth as needed. insulin aspart U-100 (NOVOLOG FLEXPEN U-100 INSULIN) 100 unit/mL (3 mL) Inject 7 units before breakfast, 9 units before lunch, and 9 units before dinner as directed. Through [employer] Patient [employer]. insulin degludec (TRESIBA FLEXTOUCH U-100) 100 unit/mL (3 mL) injection pen Inject 22 Units subcutaneously every morning. Patient Assistance Medication Insulin [place], Disposable, (BD ULTRA-FINE DONNIE PEN NEEDLE) 32 gauge x 5/32 Use as directed with insulin injections three times daily Insulin Syringe-Needle U-100 (BD INSULIN SYRINGE UF II) 0.5 mL 31 gauge x 5/16 syrg Use as directed with insulin injections three times daily lancets(FREESTYLE LANCETS) Use as directed. meclizine (ANTIVERT) 25 mg tab Take 1 tablet by mouth three times daily as needed (dizziness). metoprolol succinate ER (TOPROL XL) 25 mg 24 hr tablet Take 1 tablet by mouth once daily. MULTIVITAMIN TAB Take one(1) tablet daily. semaglutide (OZEMPIC) 1 mg/dose (4 mg/3 mL) pen Inject 1 mg subcutaneously one time a week. semaglutide (OZEMPIC) 2 mg/dose (8 mg/3 mL) pen injector Inject 2 mg subcutaneously one time a week. Gets from PAP. ON HOLD as of 10/20/22 due to possible error in shipment. Taking 1mg weekly now. simvastatin (ZOCOR) 40 mg tablet Take 1 tablet by mouth daily at bedtime. tamsulosin (FLOMAX) 0.4 mg Take 2 capsules by mouth daily at bedtime. timolol maleate (TIMOPTIC) 0.25 % ophthalmic solution Use 1 Drop in both eyes twice daily. XALATAN 0.005 % EYE DROPS once daily both eyes Objective: Exam: Last 3 Encounter BP Readings: Date: BP: 11/13/2022 138/72 09/15/2022 138/80 07/27/2022 131/71 Wt: 79.8 kg (176 lb) BMI: 32.19 kg/(m^2) LABS: Reviewed Lab Results Component Value Date HBA1C 7.3 11/06/2022 HBA1C 7.5 07/10/2022 HBA1C 7.7 03/03/2022 HBA1C 7.7 06/27/2021 HBA1C 9.3 11/01/2020 HBA1C 10.0 11/08/2019 CMP: Glucose 67 11/06/2022 BUN 20 11/06/2022 Creatinine 0.91 11/06/2022 NA 141 11/06/2022 K 4.1 11/06/2022 Chloride 106 11/06/2022 CO2 25 11/06/2022 Protein, Total 7.0 11/06/2022 Albumin 4.1 11/06/2022 Calcium 9.7 11/06/2022 Alk Phos Total 102 11/06/2022 Bilirubin, Total 0.5 11/06/2022 AST (SGOT) 29 11/06/2022 ALT (SGPT) 22 11/06/2022 eGFR 92 (per CMP on 11/06/22) Lab Results Component Value Date CHOL 174 07/10/2022 CHOL 149 06/27/2021 LDL 94 07/10/2022 LDL 67 06/27/2021 HDL 66 07/10/2022 HDL 62 06/27/2021 TG 72 07/10/2022 TG 102 06/27/2021 The 10-year ASCVD risk score (Katya CHAPARRO, et al., 2019) is: 32% Values used to calculate the score: Age: 67 years Sex: Male Is Non- : No Diabetic: Yes Tobacco smoker: No Systolic Blood Pressure: 138 mmHg Is BP treated: Yes HDL Cholesterol: 66 mg/dL Total Cholesterol: 174 mg/dL Albumin/Creat Ratio (mg/g) Date Value 11/06/2022 17 PHARMACOTHERAPY ASSESSMENT/PLAN: 1. Diabetes mellitus due to underlying condition with microalbuminuria, with long-term current use of insulin ([facility]) - ICD9: 249.40, 791.0, V58.67, ICD10: E08.29, R80.9, Z79.4 A1c goal < 8%; controlled (last A1c 7.3%); no CGM to review since reader not working properly; SMBG log for past few days shows variable control based on diet; still having occasional low Bgs before lunch, patient did not decrease breakfast dose insulin as advised at last appt; patient has restarted Ozempic 1mg weekly and tolerating well, only 2 doses so far; may consider increasing dose further in future; A1c has been consistently at goal and regimen fairly stable - offered to discharge from PharmD services today but patient preferred to maintain contact so scheduled f/up for 6 mo - will need to restart PAP application at that time DECREASE breakfast Novolog dose to 7 units as previously discussed CONTINUE Ozempic 1mg weekly, Tresiba 22 units daily, and Novolog 9 units with lunch and dinner Provided pt with customer service number for [employer], advised to call to request replacement reader HbA1c: due 05/08 Follow-up Patient is scheduled to see PCP team on 03/19. Patient to have f/up with PharmD team on 05/17. Patient verbalized understanding of instructions. Joce Celaya PharmD, [facility] Primary Care Clinical Pharmacist The majority of the pharmacy visit (> 50%) was spent counseling and/or coordinating care for the patient. interaction: face to face time was 28 minutes. documented in this encounter [facility] 11-30-2022 Instructions Joce Celaya RPh - 11/30/2022 2:00 PM EDT Called the customer service number for the [employer] 2 to request a new reader since your current one broke. DECREASE your breakfast Novolog dose to 7 units. CONTINUE all other medications the same as you have been. documented in this encounter [facility] 11-13-2022 Instructions Jossy Caruso APRN.CNS - 11/13/2022 11:53 AM EDT Try taking Tylenol ibuprofen or Aleve an hour before mowing the lawn. Complete about half of the yard and take a break. If you develop this may help avoid leg pain or back pain while mowing Let us know if not feeling improved with this documented in this encounter [facility] 11-13-2022 History of Present illness Narrative SUBJECTIVE: BP CONTROLLED (<130/80) Never done COVID-19 VACCINE(3 - Booster for Moderna series) due on 05/26/2021 ADVANCE DIRECTIVE DISCUSSION due on 07/23/2022 DEPRESSION ASSESSMENT due on 07/23/2022 HPI Jing Mckeon is a 67 year old male. 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 He notes he took a warm bath and this resolved. Notes has not previously occurred. Does have sciatica and lumbar disc degeneration. Has followed with PharmD regarding DM. Notes CGM is very helpful.He notes this is working well for him. No low blood sugars. DIABETES MELLITUS: Notes BS typically controlled. No recent low blood sugars. No report excessive thirst or increased frequency of urination, chest pain or dyspnea , numbness, tingling or pain in extremities, new or unusual visual symptoms, low sugar/hypoglycemic reactions, weight loss/gain, lightheadedness/dizziness, and bowel changes/loose stools. Patient's last HgA1C was Hemoglobin A1C (%) Date Value 11/06/2022 7.3 07/10/2022 7.5 06/27/2021 7.7 11/01/2020 9.3 ) HTN: Without report of headache, chest pain, palpitations, dyspnea, peripheral edema, orthopnea, fatigue, and PND. Last 3 Encounter BP Readings: Date: BP: 11/13/2022 138/72 09/15/2022 138/80 07/27/2022 131/71 Hyperlipidemia. Mr. Mckeon reports doing well on current therapy of simvastatin His most recent lipid panels are: Cholesterol, Total (mg/dL) Date Value 07/10/2022 174 10/26/2021 158 06/27/2021 149 11/01/2020 147 HDL Cholesterol (mg/dL) Date Value 07/10/2022 66 10/26/2021 65 06/27/2021 62 11/01/2020 49 LDL Cholesterol (mg/dL) Date Value 07/10/2022 94 10/26/2021 73 06/27/2021 67 11/01/2020 66 Triglyceride (mg/dL) Date Value 07/10/2022 72 10/26/2021 101 06/27/2021 102 11/01/2020 162 The 10-year ASCVD risk score (Katya CHAPARRO, et al., 2019) is: 32% Values used to calculate the score: Age: 67 years Sex: Male Is Non- : No Diabetic: Yes Tobacco smoker: No Systolic Blood Pressure: 138 mmHg Is BP treated: Yes HDL Cholesterol: 66 mg/dL Total Cholesterol: 174 mg/dL BPH is stable. Review of Systems Constitutional: Negative. Respiratory: Negative. Cardiovascular: Negative. Endocrine: Negative. Objective BP 138/72 Pulse 69 Resp 16 Wt 79.8 kg (176 lb) SpO2 99% BMI 32.19 kg/m Physical Exam Vitals and nursing note reviewed. Constitutional: Appearance: Normal appearance. HENT: Head: Normocephalic and atraumatic. Eyes: Conjunctiva/sclera: Conjunctivae normal. Neck: Thyroid: No thyromegaly. Vascular: Normal carotid pulses. No JVD. Cardiovascular: Rate and Rhythm: Normal rate and regular rhythm. Pulses: Carotid pulses are 2+ on the right side and 2+ on the left side. Radial pulses are 2+ on the right side and 2+ on the left side. Pulmonary: Effort: Pulmonary effort is normal. Breath sounds: Normal breath sounds. Abdominal: General: Bowel sounds are normal. Palpations: Abdomen is soft. Skin: General: Skin is warm and dry. Neurological: General: No focal deficit present. Mental Status: He is alert and oriented to person, place, and time. ALLERGIES No Known Allergies Medications tamsulosin (FLOMAX) 0.4 mg Take 2 capsules by mouth daily at bedtime. insulin aspart U-100 (NOVOLOG FLEXPEN U-100 INSULIN) 100 unit/mL (3 mL) Inject 7 units before breakfast, 9 units before lunch, and 9 units before dinner as directed. Through [employer] Patient Assistance. semaglutide (OZEMPIC) 1 mg/dose (4 mg/3 mL) pen Inject 1 mg subcutaneously one time a week. semaglutide (OZEMPIC) 2 mg/dose (8 mg/3 mL) pen injector Inject 2 mg subcutaneously one time a week. Gets from PAP. ON HOLD as of 10/20/22 due to possible error in shipment. Taking 1mg weekly now. insulin degludec (TRESIBA FLEXTOUCH U-100) 100 unit/mL (3 mL) injection pen Inject 22 Units subcutaneously every morning. Patient Assistance Medication meclizine (ANTIVERT) 25 mg tab Take 1 tablet by mouth three times daily as needed (dizziness). glucagon (GVOKE HYPOPEN 2-PACK) 0.5 mg/0.1 mL AutoInjector Use to treat severe hypoglycemic episode as recommend on product labeling. metoprolol succinate ER (TOPROL XL) 25 mg 24 hr tablet Take 1 tablet by mouth once daily. enalapril (VASOTEC) 20 mg tablet Take 1 tablet by mouth twice daily. glucose 4 gram chewable tablet Take 4 tablets by mouth as needed. simvastatin (ZOCOR) 40 mg tablet Take 1 tablet by mouth daily at bedtime. flash glucose sensor ([employer] LUIZA 2 SENSOR) kit Ust to check blood sugars once daily. Please apply free voucher for 1 sensor, pt to bring in Insulin [place], Disposable, (BD ULTRA-FINE DONNIE PEN NEEDLE) 32 gauge x 5/32 Use as directed with insulin injections three times daily albuterol HFA (VENTOLIN HFA) 90 mcg/actuation inhaler Inhale 2 Puffs as instructed every 4 hours as needed for Wheezing/Shortness of Breath. Insulin Syringe-Needle U-100 (BD INSULIN SYRINGE UF II) 0.5 mL 31 gauge x 5/16 syrg Use as directed with insulin injections three times daily timolol maleate (TIMOPTIC) 0.25 % ophthalmic solution Use 1 Drop in both eyes twice daily. Blood Sugar Diagnostic, Drum (ACCU-CHEK COMPACT TEST) Strp Testing 2-3 times daily lancets(FREESTYLE LANCETS) Use as directed. XALATAN 0.005 % EYE DROPS once daily both eyes COSOPT 2 %-0.5 % EYE DROPS Use in eyes. ASPIRIN 81 MG TAB Take one (1) tablet daily . B COMPLEX CAP take one tablet daily MULTIVITAMIN TAB Take one(1) tablet daily. PAST MEDICAL HISTORY Diagnosis Date Benign neoplasm of colon BPH without obstruction/lower urinary tract symptoms 04/01/2012 Carpal tunnel syndrome Degeneration of lumbar or lumbosacral intervertebral disc 05/02/2008 Essential hypertension, benign Glaucoma Hemorrhage of rectum and anus Hyperplasia of prostate Pure hypercholesterolemia Gets labs done at [facility] for MIQUEL Siddiqui Type II or unspecified type diabetes mellitus without mention of complication, uncontrolled Continues to follow with MIQUEL Siddiqui CNP/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--gets labs through [facility] Unspecified glaucoma(365.9) Social History Tobacco Use Smoking status: Never Smokeless tobacco: Never Substance Use Topics Alcohol use: No Drug use: No Component Latest Ref Rng & Units 10/26/2021 03/03/2022 07/10/2022 11/06/2022 Protein, Total 6.3 - 8.0 g/dL 7.1 7.1 6.9 7.0 Albumin 3.9 - 4.9 g/dL 4.3 4.0 4.1 4.1 Calcium 8.5 - 10.2 mg/dL 10.1 9.8 9.8 9.7 Bilirubin, Total 0.2 - 1.3 mg/dL 0.3 0.3 0.4 0.5 Alkaline Phosphatase 38 - 113 U/L 119 (H) 112 131 (H) 102 AST 14 - 40 U/L 23 24 22 29 ALT 10 - 54 U/L 19 16 22 22 Glucose 74 - 99 mg/dL 162 (H) 102 (H) 138 (H) 67 (L) BUN 9 - 24 mg/dL 18 15 16 20 Creatinine 0.73 - 1.22 mg/dL 0.87 0.93 0.91 0.91 Sodium 136 - 144 mmol/L 141 143 142 141 Potassium 3.7 - 5.1 mmol/L 4.4 4.0 4.0 4.1 Chloride 97 - 105 mmol/L 106 (H) 104 104 106 (H) CO2 22 - 30 mmol/L 26 28 28 25 Anion Gap 9 - 18 mmol/L 9 11 10 10 eGFR >=60 mL/min/1.73m 94 89 92 91 WBC 3.70 - 11.00 k/uL 8.72 RBC 4.20 - 6.00 m/uL 4.94 Hemoglobin 13.0 - 17.0 g/dL 15.1 Hematocrit 39.0 - 51.0 % 45.2 MCV 80.0 - 100.0 fL 91.5 MCH 26.0 - 34.0 pg 30.6 MCHC 30.5 - 36.0 g/dL 33.4 RDW-CV 11.5 - 15.0 % 13.1 Platelet Count 150 - 400 k/uL 255 MPV 9.0 - 12.7 fL 11.9 Absolute nRBC <0.01 k/uL <0.01 Cholesterol, Total <200 mg/dL 158 174 Triglyceride <150 mg/dL 101 72 HDL Cholesterol >39 mg/dL 65 66 Non HDL Cholesterol <130 mg/dL 93 108 Fasting Time hrs 12 10 VLDL Cholesterol <30 mg/dL 20 14 TC:HDL Ratio <5.10 2.43 2.64 LDL Cholesterol <100 mg/dL 73 94 LDL:HDL Ratio <2.54 1.12 1.42 Creatinine, Ur Random (UCRR) 20.0 - 300.0 mg/dL 232.6 110.7 Albumin, Urine Random mg/L 72.6 18.9 Albumin/Creat Ratio <30 mg/g 31 (H) 17 Hemoglobin A1C 4.3 - 5.6 % 7.7 (H) 7.7 (H) 7.5 (H) 7.3 (H) Estimated Average Glucose mg/dL 174 174 169 163 ASSESSMENT/PLAN: 1. Type 2 diabetes mellitus with microalbuminuria, with long-term current use of insulin (HCC) - ICD9: 250.40, 791.0, V58.67, ICD10: E11.29, R80.9, Z79.4 (primary diagnosis) Controlled, continue with current treatment unchanged. Continue with CGM, this has been very helpful for him to control glucose levels. - COMP METABOLIC PANEL - CBC + DIFF - ALBUMIN/CREAT RATIO RND UR - HGB A1C - LIPID PANEL BASIC 2. Encounter for immunization - ICD9: V03.89, ICD10: Z23 - [employer] COVID-19 BIVALENT VACCINE, AGE 12+ YR -defer for now 3. Primary hypertension - ICD9: 401.9, ICD10: I10 Controlled - Continue current medication(s) - Encouraged dietary sodium restriction/DASH diet - Recommended regular aerobic exercise. - COMP METABOLIC PANEL - CBC + DIFF 4. Pure hypercholesterolemia - ICD9: 272.0, ICD10: E78.00 Continue with current statin unchanged for now, consider increase treatment if so desires at next visit. Recommend a plant based diet such as Mediterranean diet with plenty of vegetables, fruits,whole grains, fish, chicken, turkey or plant proteins and routine exercise such as walking - LIPID PANEL BASIC 5. BPH with obstruction/lower urinary tract symptoms - ICD9: 600.01, 599.69, ICD10: N40.1, N13.8 /Stable, currently controlled, continue to monitor. - PSA/PROSTSPECAG SCRN 6. Encounter for screening for malignant neoplasm of prostate - ICD9: V76.44, ICD10: Z12.5 Stable, continue with current treatment unchanged - PSA/PROSTSPECAG SCRN 7. Essential hypertension, benign - ICD9: 401.1, ICD10: I10 - METOPROLOL SUCCINATE ER 25 MG TABLET,EXTENDED RELEASE 24 HR 6 mo follow up Son Zambrano MD with labs Jossy Caruso APRN.CAVALRY SCOUT Medical Decision Making: Problems: Moderate: 2+ stable chronic illnesses Data: Unique test(s) ordered: 3+ Risk: Moderate: Drug management Medical Decision Making Level: 4 - Moderate documented in this encounter [facility] 11-01-2022 Miscellaneous Notes Pt picked up. Info relayed to pts spouse. Rec'd 5 boxes of pen needles from [employer]. Lot number [id number] Exp date 03/22/2027. documented in this encounter [facility] 10-31-2022 Miscellaneous Notes last seen BREAKING MACHINE OPERATOR 09/15/22. Next appt with BREAKING MACHINE OPERATOR 11/13/22. Patient has been identified by name and date of : Yes Requested Prescriptions Pending Prescriptions Disp Refills tamsulosin (FLOMAX) 0.4 mg 180 capsule 3 Sig: Take 2 capsules by mouth daily at bedtime. RX INSTRUCTIONS: Patient aware RX will be sent to pharmacy. No need to notify patient. Patricia Villasenor Pss documented in this encounter [facility] 10-27-2022 History of Present illness Narrative HPI Jing Mckeon is a 67 year old male who presents with follow-up ears. Patient was concerned he may be getting infection in his right ear was somewhat blocking. Patient has no pain or drainage.. ROS General Weight loss: No Fatigue: No Night sweats:No Cardiac Chest pain:No Fast heart rate:No Swelling in the feet:No Respiratory Short of breath:No Cough:No Wheezing:No Gastrointestinal Nausea:No Vomiting:No Indigestion:No Past medical history, family history, and social history reviewed. PE There were no vitals taken for this visit. General: Patient is awake, alert, NAD. Voice is normal. Skin: normal Eyes: Extraocular motion and Gaze is normal. Ears: Right external auditory canal is normal. TMJ: normal. Right tympanic membranes normal. Lateral cerumen cerumen somewhat moist no sign of infection or pus Left external auditory canal is normal. Left tympanic membrane normal. Nose: Septum is normal. Turbinates are normal. Nasopharynx:normal Oral Cavity/Oropharynx: Lips normal Dentition normal Tongue normal. Tonsils normal. Palate and uvula normal. Pharynx posterior normal Hypopharynx: Base of tongue normal Pyriform sinus normal. Larynx: Vocal cords normal. Epiglottis normal. Post cricoid normal. Salivary glands: Parotid normal. Submandibular and sublingual normal. Thyroid: normal. Lymphatic/Neck: Lymph nodes normal. Neurologic: Facial nerve normal. ASSESSMENT/PLAN: 1. Impacted cerumen of both ears - ICD9: 380.4, ICD10: H61.23 (primary diagnosis) 2. Hearing loss due to cerumen impaction, bilateral - ICD9: 389.8, 380.4, ICD10: H61.23 3. Chronic eczematous otitis externa of right ear - ICD9: 380.23, ICD10: H60.8X1 Follow-up as needed no need for any antibiotics at this time Andrew Foster MD Findings will be communicated to the referring physician via mail or electronic medical record. documented in this encounter [facility] 10-26-2022 Miscellaneous Notes Pt picked this up. Regarding Ozempic, it appears the wrong pen volume was shipped (for the 2mg dose, patient should have received the 8mg/3mL pens). The pen that was shipped to patient can only dial up to a max of 1mg. Discussed with nurse who received medication - will have patient take Ozempic 1mg weekly for now. PharmD has f/up visit with patient next week on 10/26 so will plan to discuss possible dose adjustment at that time. The following approved medication requests have been transmitted electronically. Requested Prescriptions Signed Prescriptions Disp Refills semaglutide (OZEMPIC) 1 mg/dose (4 mg/3 mL) pen Sig: Inject 1 mg subcutaneously one time a week. Authorizing Provider: SON ZAMBRANO Ordering User: JOCE CELAYA semaglutide (OZEMPIC) 2 mg/dose (8 mg/3 mL) pen injector 3 mL 5 Sig: Inject 2 mg subcutaneously one time a week. Gets from PAP. ON HOLD as of 10/20/22 due to possible error in shipment. Taking 1mg weekly now. Authorizing Provider: SON ZAMBRANO Ordering User: JOCE CELAYA RPh Rec'd from [employer] ozempic 4mg/3ml 4 boxes with lot number [id number] and exp date 10/20/2024 2 boxes of tresiba u100 with lot number [id number] exp date 12/20/2024 2 boxes of novolog flex pens 100units /ML lot number [id number] and exp date 10/19/2024 documented in this encounter [facility] 10-26-2022 History of Present illness Narrative Images from the original note were not included. Primary Care Pharmacy Visit CC (Reason for Consult): Diabetes Goal: A1c < 8% Collaborating Provider: Dr Zambrano Last Provider Visit: 09/15/2022 (Jossy Caruso) Jing Mckeon is a 67 year old male presenting for follow up visit in person. Patient consents to pharmacy collaborative practice agreement. Patient is presenting today for follow-up pharmacotherapy management appointment for diabetes. At last PharmD visit on 09/14/2022, dose of Tresiba was increased to 22 units, dose of Novolog was decreased to 8 units, and dose of Ozempic increased to 2 mg weekly. Additionally, at last visit, patient did not yet have Ozempic from [employer] [facility] -- a prescription was sent to [facility] pharmacy and patient was instructed to call [employer] and request an immediate supply voucher. Subjective: HPI: Patient reports feeling good. States that he has had some days that are high. Reports that he has been trying to eat more vegetables and fruit, has not cut back on Mountain Dew. States that he hasn't been exercising often, but that when the weather is warmer, he likes to ride his bike outside. Patient reports some issues with compliance. Reports he has missed 6 doses of Tresiba since last visit on 09/14. States that he has been using 9 units of the Novolog and that he misses doses with lunch and dinner about 20% or less of the time. Also reports that he ran out of the Ozempic 1 mg since he was unable to reach someone for the Immediate Supply Voucher. Patient was not able to begin taking Ozempic 2 mg as well. Patient denies CP, SOB, changes in vision, increased thirst, or increased urinary frequency. Current DM Medications: Tresiba 22 units daily at bedtime Novolog 8 units TIDAC (Patient reports using 9 units TIDAC) Ozempic 1 mg weekly (Patient was not using for last 2 weeks -- unable to obtain Immediate Supply Voucher) Past DM medications: Insulin NPH Insulin 70/30 Miglitol Rosiglitazone Current HTN Medications: Enalapril 20mg twice daily Metoprolol succinate ER 25mg once weekly GLYCEMIC CONTROL: Glucometer present at visit: Yes Hypoglycemia: Per Aaliyahw, patient has some lows listed in 60's, some in 50's after breakfast. Discussed how to correct this -- states he has glucose tablets at home that he utilizes. Preventative Medications: On LARA/ARB: Yes On Statin: Yes ROS: Patient denies CP, SOB, LUGO, blurred vision, dizziness or lightheadedness Patient denies symptoms of hypoglycemia (sweating, anxiety, palpitations, hunger, and tremor) Patient denies symptoms of hyperglycemia (polyuria, polydipsia, polyphagia) Patient denies potential medication adverse effects DIET/EXERCISE/SOCIAL Hx: Meals: Patient states he is trying to eat more vegetables and fruits Beverages: Patient states that he is drinking Mountain Dew and has not cut back since last appointment on 09/14 Exercise: States that he has been slacking -- states that as it gets warmer outside he will ride his bike more often. 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, With Long-Term Current Use of Insulin ([facility]) History of Colonic Polyps Diverticulosis of Large Intestine Without Hemorrhage PAST MEDICAL HISTORY Diagnosis Date Benign neoplasm of colon BPH without obstruction/lower urinary tract symptoms 04/01/2012 Carpal tunnel syndrome Degeneration of lumbar or lumbosacral intervertebral disc 05/02/2008 Essential hypertension, benign Glaucoma Hemorrhage of rectum and anus Hyperplasia of prostate Pure hypercholesterolemia Gets labs done at [facility] for MIQEUL Siddiqui Type II or unspecified type diabetes mellitus without mention of complication, uncontrolled Continues to follow with MIQUEL Siddiqui CNP/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--gets labs through [facility] Unspecified glaucoma(365.9) Past medical, family and social history reviewed and updated. ALLERGIES No Known Allergies Medication List Medication Directions Comments Action/Plan albuterol HFA (VENTOLIN HFA) 90 mcg/actuation inhaler Inhale 2 Puffs as instructed every 4 hours as needed for Wheezing/Shortness of Breath. ASPIRIN 81 MG TAB Take one (1) tablet daily . B COMPLEX CAP take one tablet daily Blood Sugar Diagnostic, Drum (ACCU-CHEK COMPACT TEST) Strp Testing 2-3 times daily COSOPT 2 %-0.5 % EYE DROPS twice daily both eyes Patient not taking: No sig reported enalapril (VASOTEC) 20 mg tablet Take 1 tablet by mouth twice daily. flash glucose sensor (FREESTYLE LUIZA 2 SENSOR) kit Ust to check blood sugars once daily. Please apply free voucher for 1 sensor, pt to bring in glucagon (GVOKE HYPOPEN 2-PACK) 0.5 mg/0.1 mL AutoInjector Use to treat severe hypoglycemic episode as recommend on product labeling. glucose 4 gram chewable tablet Take 4 tablets by mouth as needed. insulin aspart U-100 (NOVOLOG FLEXPEN U-100 INSULIN) 100 unit/mL (3 mL) Inject 8 units three times daily before meals. Through [employer] Patient [employer]. insulin degludec (TRESIBA FLEXTOUCH U-100) 100 unit/mL (3 mL) injection pen Inject 22 Units subcutaneously every morning. Patient Assistance Medication Insulin [place], Disposable, (BD ULTRA-FINE DONNIE PEN NEEDLE) 32 gauge x 5/32 Use as directed with insulin injections three times daily Insulin Syringe-Needle U-100 (BD INSULIN SYRINGE UF II) 0.5 mL 31 gauge x 5/16 syrg Use as directed with insulin injections three times daily lancets(FREESTYLE LANCETS) Use as directed. meclizine (ANTIVERT) 25 mg tab Take 1 tablet by mouth three times daily as needed (dizziness). metoprolol succinate ER (TOPROL XL) 25 mg 24 hr tablet Take 1 tablet by mouth once daily. MULTIVITAMIN TAB Take one(1) tablet daily. semaglutide (OZEMPIC) 1 mg/dose (4 mg/3 mL) pen Inject 1 mg subcutaneously one time a week. semaglutide (OZEMPIC) 2 mg/dose (8 mg/3 mL) pen injector Inject 2 mg subcutaneously one time a week. Gets from PAP. ON HOLD as of 10/20/22 due to possible error in shipment. Taking 1mg weekly now. simvastatin (ZOCOR) 40 mg tablet Take 1 tablet by mouth daily at bedtime. tamsulosin (FLOMAX) 0.4 mg Take 2 capsules by mouth daily at bedtime. timolol maleate (TIMOPTIC) 0.25 % ophthalmic solution Use 1 Drop in both eyes twice daily. XALATAN 0.005 % EYE DROPS once daily both eyes Rx meds not listed in EPIC: None OTCs: None Herbals: None Objective: Exam: VITALS: BP 131/72, HR 62 Last 3 Encounter BP Readings: Date: BP: 09/15/2022 138/80 07/27/2022 131/71 07/14/2022 136/78 Wt: 78.5 kg (173 lb) BMI: 31.64 kg/(m^2) LABS: Reviewed Lab Results Component Value Date HBA1C 7.5 07/10/2022 HBA1C 7.7 03/03/2022 HBA1C 7.7 10/26/2021 HBA1C 7.7 06/27/2021 HBA1C 9.3 11/01/2020 HBA1C 10.0 11/08/2019 CMP: Glucose 138 07/10/2022 BUN 16 07/10/2022 Creatinine 0.91 07/10/2022 NA 142 07/10/2022 K 4.0 07/10/2022 Chloride 104 07/10/2022 CO2 28 07/10/2022 Protein, Total 6.9 07/10/2022 Albumin 4.1 07/10/2022 Calcium 9.8 07/10/2022 Alk Phos Total 131 07/10/2022 Bilirubin, Total 0.4 07/10/2022 AST (SGOT) 22 07/10/2022 ALT (SGPT) 22 07/10/2022 GFR (mL/MIN) Date Value 09/21/2018 94 Cockcroft & Gault (Adjusted BW): 69.6 (mL/min) Lab Results Component Value Date CHOL 174 07/10/2022 CHOL 149 06/27/2021 LDL 94 07/10/2022 LDL 67 06/27/2021 HDL 66 07/10/2022 HDL 62 06/27/2021 TG 72 07/10/2022 TG 102 06/27/2021 The 10-year ASCVD risk score (Katya CHAPARRO, et al., 2019) is: 32% Values used to calculate the score: Age: 67 years Sex: Male Is Non- : No Diabetic: Yes Tobacco smoker: No Systolic Blood Pressure: 138 mmHg Is BP treated: Yes HDL Cholesterol: 66 mg/dL Total Cholesterol: 174 mg/dL Albumin/Creat Ratio (mg/g) Date Value 10/26/2021 31 (H) PHARMACOTHERAPY ASSESSMENT/PLAN: 1. Diabetes mellitus due to underlying condition with microalbuminuria, with long-term current use of insulin ([facility]) - ICD9: 249.40, 791.0, V58.67, ICD10: E08.29, R80.9, Z79.4 A1c goal < 8%; controlled (last A1c 7.5%); LibreView in range only target range 53% of the time (goal >70%), high 28% of time time, very high 18% of the time; Reading often low, below target range, after breakfast in 60's, sometimes 50's; Patient has not been using Ozempic for past 2 weeks and is frequently missing doses of Tresiba and Novolog. Therefore, patient would benefit from restarting GLP-RA and reducing prandial insulin before breakfast. Renal fxn and LFT sufficient for use CONTINUE Tresiba 22 units daily in the evening Discussed whether taking this medication in the morning versus the evening would be most beneficial from an adherence standpoint. At this time, patient would like to continue evening dosing. START Novolog 7-9-9 TIDAC Patient experiencing low blood sugars after breakfast. Patient agreeable to decrease dose of insulin prior to breakfast to 7 units. RESTART Ozempic 1 mg once weekly Patient's LibreView summary reflective of glucose levels without using Ozempic. Since patient has not used Ozempic in 2 weeks, will restart Ozempic 1 mg at this time and reassess at next visit. (Ozempic arrived at office today, so patient left visit with medication). HbA1c: due 11/12 Follow-up Patient is scheduled to see PCP team on 11/13/2022 (Jossy Caruso). Patient to have f/up with PharmD team on 11/30/2022 at 2 PM. Patient verbalized understanding of instructions. Hunter Mcclendon, ArmandoD, [facility] PGY1 Clinical Interpreter Deaf The majority of the pharmacy visit (> 50%) was spent counseling and/or coordinating care for the patient. interaction: face to face time was 30 minutes. The patient's case was discussed with the pharmacy clinical specialist who interviewed the patient. Paz elements of history confirmed during office visit. The progress note reflects my input and comments. Armando OlivarezD, [facility] Primary Care Clinical Pharmacist documented in this encounter [facility] 10-26-2022 Instructions Hunter Mcclendon RPh - 10/26/2022 11:30 AM EDT Decrease breakfast dose of Novolog to 7 units -- Continue 9 units prior to lunch and dinner Continue Tresiba 22 units daily in the evening Restart Ozempic 1 mg once weekly on Sunday documented in this encounter [facility] 09-15-2022 Instructions Jossy Caruso APRN.JACLYN - 09/15/2022 1:50 PM EST Avoid wearing your back support brace directly on your skin. Wash the open areas daily with soap and water Apply mupirocin ointment morning and evening. Wear clean dry white T-shirt or similar over top. Let us know if not clearing up. documented in this encounter [facility] 09-15-2022 History of Present illness Narrative SUBJECTIVE: BP CONTROLLED (<130/80) Never done COVID-19 VACCINE(3 - Booster for Moderna series) due on 05/26/2021 ADVANCE DIRECTIVE DISCUSSION due on 07/23/2022 DEPRESSION ASSESSMENT due on 07/23/2022 HPI Jing Mckeon is a 67 year old male. 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 Has followed with PharmD regarding DM. CGM ordered. He notes this is working well for him. Has received [employer], [employer] and [employer] supply. He reports not being as active as he probably should. Notes trying to adhere to diabetic diet. DIABETES MELLITUS: Notes BS typically less than 200. No report excessive thirst or increased frequency of urination, chest pain or dyspnea , numbness, tingling or pain in extremities, new or unusual visual symptoms, low sugar/hypoglycemic reactions, weight loss/gain, lightheadedness/dizziness, and bowel changes/loose stools. Patient's last HgA1C was Hemoglobin A1C (%) Date Value 07/10/2022 7.5 03/03/2022 7.7 06/27/2021 7.7 11/01/2020 9.3 ) Presents for concern regarding shingles. He reports low back pain for which she wore a blowup brace on his back. Initially wore a sub-layer beneath the brace. Subsequently developed open sores as this was later on placed directly on his skin for a number of days. Now noting the areas are itchy. Not painful. Review of Systems Constitutional: Negative. Endocrine: Negative. Skin: Positive for rash and wound. Objective BP 138/80 Pulse 72 Resp 16 Wt 78.5 kg (173 lb) BMI 31.64 kg/m Physical Exam Vitals and nursing note reviewed. Constitutional: Appearance: Normal appearance. HENT: Head: Normocephalic and atraumatic. Eyes: Conjunctiva/sclera: Conjunctivae normal. Neck: Thyroid: No thyromegaly. Vascular: Normal carotid pulses. No JVD. Cardiovascular: Rate and Rhythm: Normal rate and regular rhythm. Pulses: Carotid pulses are 2+ on the right side and 2+ on the left side. Radial pulses are 2+ on the right side and 2+ on the left side. Pulmonary: Effort: Pulmonary effort is normal. Breath sounds: Normal breath sounds. Abdominal: General: Bowel sounds are normal. Palpations: Abdomen is soft. Skin: General: Skin is warm and dry. Comments: Circumferential multiple lesions mid abdomen, oval, 1/2 to 1 inch in diameter in pattern of a belt or similar. Neurological: General: No focal deficit present. Mental Status: He is alert and oriented to person, place, and time. ALLERGIES No Known Allergies Medications insulin aspart U-100 (NOVOLOG FLEXPEN U-100 INSULIN) 100 unit/mL (3 mL) Inject 8 units three times daily before meals. Through [employer] Patient Assistance. insulin degludec (TRESIBA FLEXTOUCH U-100) 100 unit/mL (3 mL) injection pen Inject 22 Units subcutaneously every morning. Patient Assistance Medication semaglutide (OZEMPIC) 2 mg/dose (8 mg/3 mL) pen injector Inject 2 mg subcutaneously one time a week. Usually gets through [employer] PAP. meclizine (ANTIVERT) 25 mg tab Take 1 tablet by mouth three times daily as needed (dizziness). glucagon (GVOKE HYPOPEN 2-PACK) 0.5 mg/0.1 mL AutoInjector Use to treat severe hypoglycemic episode as recommend on product labeling. metoprolol succinate ER (TOPROL XL) 25 mg 24 hr tablet Take 1 tablet by mouth once daily. tamsulosin (FLOMAX) 0.4 mg Take 2 capsules by mouth daily at bedtime. enalapril (VASOTEC) 20 mg tablet Take 1 tablet by mouth twice daily. glucose 4 gram chewable tablet Take 4 tablets by mouth as needed. simvastatin (ZOCOR) 40 mg tablet Take 1 tablet by mouth daily at bedtime. flash glucose sensor (FREESTYLE LUIZA 2 SENSOR) kit Ust to check blood sugars once daily. Please apply free voucher for 1 sensor, pt to bring in Insulin [place], Disposable, (BD ULTRA-FINE DONNIE PEN NEEDLE) 32 gauge x 5/32 Use as directed with insulin injections three times daily albuterol HFA (VENTOLIN HFA) 90 mcg/actuation inhaler Inhale 2 Puffs as instructed every 4 hours as needed for Wheezing/Shortness of Breath. Insulin Syringe-Needle U-100 (BD INSULIN SYRINGE UF II) 0.5 mL 31 gauge x 5/16 syrg Use as directed with insulin injections three times daily timolol maleate (TIMOPTIC) 0.25 % ophthalmic solution Use 1 Drop in both eyes twice daily. Blood Sugar Diagnostic, Drum (ACCU-CHEK COMPACT TEST) Strp Testing 2-3 times daily lancets(FREESTYLE LANCETS) Use as directed. XALATAN 0.005 % EYE DROPS once daily both eyes ASPIRIN 81 MG TAB Take one (1) tablet daily . B COMPLEX CAP take one tablet daily MULTIVITAMIN TAB Take one(1) tablet daily. mupirocin (BACTROBAN) 2 % ointment Apply 1 application to affected area twice daily for 10 days. COSOPT 2 %-0.5 % EYE DROPS twice daily both eyes (Patient not taking: No sig reported) PAST MEDICAL HISTORY Diagnosis Date Benign neoplasm of colon BPH without obstruction/lower urinary tract symptoms 04/01/2012 Carpal tunnel syndrome Degeneration of lumbar or lumbosacral intervertebral disc 05/02/2008 Essential hypertension, benign Glaucoma Hemorrhage of rectum and anus Hyperplasia of prostate Pure hypercholesterolemia Gets labs done at [facility] for MIQUEL Siddiqui Type II or unspecified type diabetes mellitus without mention of complication, uncontrolled Continues to follow with MIQUEL Siddiqui CNP/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--gets labs through [facility] Unspecified glaucoma(365.9) Social History Tobacco Use Smoking status: Never Smokeless tobacco: Never Substance Use Topics Alcohol use: No Drug use: No Component Latest Ref Rng & Units 10/26/2021 03/03/2022 Protein, Total 6.3 - 8.0 g/dL 7.1 7.1 Albumin 3.9 - 4.9 g/dL 4.3 4.0 Calcium 8.5 - 10.2 mg/dL 10.1 9.8 Bilirubin, Total 0.2 - 1.3 mg/dL 0.3 0.3 Alkaline Phosphatase 38 - 113 U/L 119 (H) 112 AST 14 - 40 U/L 23 24 ALT 10 - 54 U/L 19 16 Glucose 74 - 99 mg/dL 162 (H) 102 (H) BUN 9 - 24 mg/dL 18 15 Creatinine 0.73 - 1.22 mg/dL 0.87 0.93 Sodium 136 - 144 mmol/L 141 143 Potassium 3.7 - 5.1 mmol/L 4.4 4.0 Chloride 97 - 105 mmol/L 106 (H) 104 CO2 22 - 30 mmol/L 26 28 Anion Gap 9 - 18 mmol/L 9 11 eGFR >=60 mL/min/1.73m 94 89 WBC 3.70 - 11.00 k/uL 8.72 RBC 4.20 - 6.00 m/uL 4.94 Hemoglobin 13.0 - 17.0 g/dL 15.1 Hematocrit 39.0 - 51.0 % 45.2 MCV 80.0 - 100.0 fL 91.5 MCH 26.0 - 34.0 pg 30.6 MCHC 30.5 - 36.0 g/dL 33.4 RDW-CV 11.5 - 15.0 % 13.1 Platelet Count 150 - 400 k/uL 255 MPV 9.0 - 12.7 fL 11.9 Absolute nRBC <0.01 k/uL <0.01 Cholesterol, Total <200 mg/dL 158 Triglyceride <150 mg/dL 101 HDL Cholesterol >39 mg/dL 65 Non HDL Cholesterol <130 mg/dL 93 Fasting Time hrs 12 VLDL Cholesterol <30 mg/dL 20 TC:HDL Ratio <5.10 2.43 LDL Cholesterol <100 mg/dL 73 LDL:HDL Ratio <2.54 1.12 Creatinine, Ur Random (UCRR) 20.0 - 300.0 mg/dL 232.6 Albumin, Urine Random mg/L 72.6 Albumin/Creat Ratio <30 mg/g 31 (H) Hemoglobin A1C 4.3 - 5.6 % 7.7 (H) 7.7 (H) Estimated Average Glucose mg/dL 174 174 ASSESSMENT/PLAN: 1. Rash and nonspecific skin eruption - ICD9: 782.1, ICD10: R21 Recommend avoiding wearing back brace for now. Wash affected area with soap and water. Apply antibacterial ointment morning and evening. Wear a clean T-shirt over top If needing the back brace in the future use a sub layer beneath to avoid injury. Let us know if not continuing to improve. - MUPIROCIN 2 % TOPICAL OINTMENT Jossy Caruso APRN.CNS Medical Decision Making: Problems: Low: Acute, uncomplicated illness or injury Risk: Moderate: Drug management Medical Decision Making Level: 3 - Low documented in this encounter [facility] 09-14-2022 History of Present illness Narrative Images from the original note were not included. Primary Care Pharmacy Visit CC (Reason for Consult): Diabetes Goal: A1c < 8% Collaborating Provider: Dr. Zambrano Last Provider Visit: 07/14/22 Jing Mckeon is a 67 year old male presenting for follow up visit in person. Patient consents to pharmacy collaborative practice agreement. Patient is presenting today for f/up pharmacotherapy management appointment for diabetes. At last PharmD visit on 07/27/22, patient advised to contact [employer] to determine application status and he was encouraged to be more adherent with insulins. Subjective: HPI: Received notification from [employer] that he was approved for 2022. Says he only has 1 dose of Ozempic remaining. Does not know when shipment will be. Overall feels things are going well. Has had some high Bgs. Rarely having lows. Still doesn't have much energy. Not urinating frequently, maybe will wake up once nightly though this is rare. States he does have issues with prostate. Denies thirst or dry mouth. No recent vision changes. No new or worsening numbness/tingling in hands or feet. Thinks he might have shingles. Has red spots above his left hip but it is not painful. Current DM Medications: Semaglutide (Ozempic) 1mg weekly on Sunday Insulin degludec (Tresiba) 20 units once daily QAM Insulin aspart (Novolog) 9 units TIDAC (usually breakfast ~8 AM, lunch 12-1 PM, dinner ~6:30) Current HTN Medications: Enalapril 20mg twice daily Metoprolol succinate ER 25mg once weekly GLYCEMIC CONTROL: Preventative Medications: On LARA/ARB: Yes On Statin: Yes ROS: Patient denies CP, SOB, LUGO, blurred vision, dizziness or lightheadedness Patient denies symptoms of hypoglycemia (sweating, anxiety, palpitations, hunger, and tremor) Patient denies symptoms of hyperglycemia (polyuria, polydipsia, polyphagia) Patient denies potential medication adverse effects DIET/EXERCISE/SOCIAL Hx: Trying to eat more fruits and vegetables No change to diet Mountain Dew intake (usually drinking 3-5 20 oz bottles daily); intentionally trying to drink more water Exercise: i've becki slacked off - having back issues currently MEDICATIONS: Pill bottles are not present Adherence: denies missed doses of Tresiba several times/month; Novolog breakfast dose missed if he gets up late Pharmacy: [facility] Rx coverage: Medicare Affordability: insulin and Ozempic through PAP Diabetes supplies: [employer] [employer] Organization System: original bottles, kept in cabinet ACTIVE PROBLEM LIST Essential Hypertension, Benign Pure Hypercholesterolemia Carpal Tunnel Syndrome Unspecified Glaucoma(365.9) Hemorrhage of Rectum and Anus Benign Neoplasm of Colon Hemorrhage of Gastrointestinal Tract, Unspecified Internal Hemorrhoids Without Mention of Complication 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, With Long-Term Current Use of Insulin (Hcc) History of Colonic Polyps Diverticulosis of Large Intestine Without Hemorrhage PAST MEDICAL HISTORY Diagnosis Date Benign neoplasm of colon BPH without obstruction/lower urinary tract symptoms 04/01/2012 Carpal tunnel syndrome Degeneration of lumbar or lumbosacral intervertebral disc 05/02/2008 Essential hypertension, benign Glaucoma Hemorrhage of rectum and anus Hyperplasia of prostate Pure hypercholesterolemia Gets labs done at [facility] for MIQUEL Siddiqui Type II or unspecified type diabetes mellitus without mention of complication, uncontrolled Continues to follow with MIQUEL Siddiqui CNP/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--gets labs through [facility] Unspecified glaucoma(365.9) ALLERGIES No Known Allergies Medication List Medication Directions Comments Action/Plan albuterol HFA (VENTOLIN HFA) 90 mcg/actuation inhaler Inhale 2 Puffs as instructed every 4 hours as needed for Wheezing/Shortness of Breath. ASPIRIN 81 MG TAB Take one (1) tablet daily . B COMPLEX CAP take one tablet daily Blood Sugar Diagnostic, Drum (ACCU-CHEK COMPACT TEST) Strp Testing 2-3 times daily COSOPT 2 %-0.5 % EYE DROPS twice daily both eyes Patient not taking: No sig reported enalapril (VASOTEC) 20 mg tablet Take 1 tablet by mouth twice daily. flash glucose sensor (FREESTYLE LUIZA 2 SENSOR) kit Ust to check blood sugars once daily. Please apply free voucher for 1 sensor, pt to bring in glucagon (GVOKE HYPOPEN 2-PACK) 0.5 mg/0.1 mL AutoInjector Use to treat severe hypoglycemic episode as recommend on product labeling. glucose 4 gram chewable tablet Take 4 tablets by mouth as needed. insulin aspart U-100 (NOVOLOG FLEXPEN U-100 INSULIN) 100 unit/mL (3 mL) Inject 9 units before breakfast, 7 units before lunch, and 9 units before dinner. Through [employer] Patient [employer]. insulin degludec (TRESIBA FLEXTOUCH U-100) 100 unit/mL (3 mL) injection pen Inject 20 Units subcutaneously every morning. Patient Assistance Medication Insulin [place], Disposable, (BD ULTRA-FINE DONNIE PEN NEEDLE) 32 gauge x 5/32 Use as directed with insulin injections three times daily Insulin Syringe-Needle U-100 (BD INSULIN SYRINGE UF II) 0.5 mL 31 gauge x 516 syrg Use as directed with insulin injections three times daily lancets(FREESTYLE LANCETS) Use as directed. meclizine (ANTIVERT) 25 mg tab Take 1 tablet by mouth three times daily as needed (dizziness). metoprolol succinate ER (TOPROL XL) 25 mg 24 hr tablet Take 1 tablet by mouth once daily. MULTIVITAMIN TAB Take one(1) tablet daily. semaglutide (OZEMPIC) 1 mg/dose (2 mg/1.5 mL) pen injector Inject 1 mg subcutaneously one time a week. Through [employer] semaglutide (OZEMPIC) 2 mg/dose (8 mg/3 mL) pen injector Inject 2 mg subcutaneously one time a week. Getting through [facility]. Once receives first shipment in 2022, will switch from Ozempic 1mg to 2mg weekly. simvastatin (ZOCOR) 40 mg tablet Take 1 tablet by mouth daily at bedtime. tamsulosin (FLOMAX) 0.4 mg Take 2 capsules by mouth daily at bedtime. timolol maleate (TIMOPTIC) 0.25 % ophthalmic solution Use 1 Drop in both eyes twice daily. XALATAN 0.005 % EYE DROPS once daily both eyes Objective: Exam: Last 3 Encounter BP Readings: Date: BP: 07/27/2022 131/71 07/14/2022 136/78 07/03/2022 162/94 Wt: 76.7 kg (169 lb) BMI: 30.91 kg/(m^2) LABS: Reviewed Lab Results Component Value Date HBA1C 7.5 07/10/2022 HBA1C 7.7 03/03/2022 HBA1C 7.7 10/26/2021 HBA1C 7.7 06/27/2021 HBA1C 9.3 11/01/2020 HBA1C 10.0 11/08/2019 CMP: Glucose 138 07/10/2022 BUN 16 07/10/2022 Creatinine 0.91 07/10/2022 NA 142 07/10/2022 K 4.0 07/10/2022 Chloride 104 07/10/2022 CO2 28 07/10/2022 Protein, Total 6.9 07/10/2022 Albumin 4.1 07/10/2022 Calcium 9.8 07/10/2022 Alk Phos Total 131 07/10/2022 Bilirubin, Total 0.4 07/10/2022 AST (SGOT) 22 07/10/2022 ALT (SGPT) 22 07/10/2022 eGFR 92 (per CMP on 07/10/22) Lab Results Component Value Date CHOL 174 07/10/2022 CHOL 149 06/27/2021 LDL 94 07/10/2022 LDL 67 06/27/2021 HDL 66 07/10/2022 HDL 62 06/27/2021 TG 72 07/10/2022 TG 102 06/27/2021 The 10-year ASCVD risk score (Katya CHAPARRO, et al., 2019) is: 29.6% Values used to calculate the score: Age: 67 years Sex: Male Is Non- : No Diabetic: Yes Tobacco smoker: No Systolic Blood Pressure: 131 mmHg Is BP treated: Yes HDL Cholesterol: 66 mg/dL Total Cholesterol: 174 mg/dL Albumin/Creat Ratio (mg/g) Date Value 10/26/2021 31 (H) PHARMACOTHERAPY ASSESSMENT/PLAN: 1. Type 2 diabetes mellitus with microalbuminuria, with long-term current use of insulin ([facility]) - ICD9: 250.40, 791.0, V58.67, ICD10: E11.29, R80.9, Z79.4 A1c goal < 7%; uncontrolled (last A1c 7.5%); CGM report still not at goal though improved from last month; occasionally having some lows after lunch (rarely after breakfast); will slightly decrease all mealtime insulins today but increase basal; patient occasionally missing Tresiba dose in AM because of sleeping in so will switch timing to hopefully improve adherence; patient accepted for [facility] PAP but will be running out of Ozempic 1mg next week; he will be starting 2mg Ozempic with newest shipment; renal fxn and LFTs sufficient for use INCREASE Tresiba to 22 units daily and CHANGE TIMING from QAM to QPM (since already took this AM's dose, advised that next dose should be given tomorrow evening) DECREASE Novolog to 8 units TIDAC INCREASE Ozempic to 2mg weekly after finishing remaining supply of 1mg Provided phone number to request emergency supply voucher for Ozempic 2mg from [employer] --> script sent to [facility] Advised to contact PharmD with any issues with BG fluctuations HbA1c: due 10/08 Follow-up Patient is scheduled to see PCP team on 11/13. Patient to have f/up with PharmD team on 10/26. Patient verbalized understanding of instructions. Joce Celaya PharmD, [facility] Primary Care Clinical Pharmacist The majority of the pharmacy visit (> 50%) was spent counseling and/or coordinating care for the patient. interaction: face to face time was 30 minutes. documented in this encounter [facility] 09-14-2022 Instructions Joce Celaya RPh - 09/14/2022 1:00 PM EST Call [employer] ( ) to request an Immediate Supply Voucher for the Ozempic 2mg dose. They will have your write down information that you will then need to take to your pharmacy. START the Ozempic 2mg dose once you run out of your current 1mg supply. Change the timing of Tresiba to evening (hopefully this will help improve how often you take the medication). Since you already took your dose this morning, your next dose will be TOMORROW (Sunday, 09/15) in the evening. Then you will continue with an evening injection thereafter. DECREASE Novolog (mealtime insulin) to 8 units with meals. INCREASE Tresiba to 22 units daily. documented in this encounter [facility] 09-07-2022 Miscellaneous Notes Rec'd fax approval from [employer] pt assistance program. Pt has been approved as long as continues to meet program eligibility guidelines until 06/21/2023. Pt's ID number is [id number]. documented in this encounter [facility] 08-07-2022 Miscellaneous Notes Will double check application when in office on . Returned call to patient and informed him I would check it on . Joce Celaya PharmD, [facility] Primary Care Clinical Pharmacist Patient phoned to let Joce Celaya know, he sent the application for the mike [employer] disc and received a letter back from them, stating they received a partial application, please re-submit. Patient states he does not know what this means, he sent everything and filled out everything Joce instructed him to do. Asking Joce to please call him. documented in this encounter [facility] 07-27-2022 History of Present illness Narrative Primary Care Pharmacy Visit CC (Reason for Consult): Diabetes Goal: A1c < 8% Collaborating Provider: Dr. Zambrano Last Provider Visit: 07/14/22 Jing Mckeon is a 67 year old male presenting for follow up visit in person. Patient consents to pharmacy collaborative practice agreement. Patient is presenting today for f/up pharmacotherapy management appointment for diabetes. At last PharmD visit on 04/27, lunchtime insulin decreased due to low BG. PAP application completed for the Ozempic 2mg pen. At last PCP appt, patient was treated for dizziness. Subjective: HPI: Stated a little while ago he had a spell of vertigo, couldn't exercise. Said he had 4-5 days of very poorly controlled blood sugars >200 (occasionally in the 300s). Denies missed doses. Admits it was around [place] and didn't eat great, wasn't exercising. Feels sugars are more or less back on track. Hasn't heard anything from [employer] regarding 2022 application. Personal goals: get A1c down, exercise Current DM Medications: Semaglutide (Ozempic) 1mg weekly on Sunday Insulin degludec (Tresiba) 20 units once daily QAM Insulin aspart (Novolog) 9 units TIDAC (taking 8-7-8 units TIDAC) Current HTN Medications: Enalapril 20mg twice daily Metoprolol succinate ER 25mg once weekly GLYCEMIC CONTROL: *Technical difficulties downloading report CGM Report Summary of Professional CGM Findings (14 days): 1- CGM recording is adequate for interpretation (79% capture rate) 2- Average glucose is 192 mg/dL 3- Hypoglycemia Total frequency of hypoglycemia: 0 events Time below target (<70 mg/dL): 0% Hypoglycemia trends: none 4- Hyperglycemia Time above target (>180 mg/dL): 62% Hyperglycemia trends: post-lunch elevations 5- Time in target range (70-180 mg/dL): 38% Preventative Medications: On LARA/ARB: Yes On Statin: Yes ROS: Patient denies CP, SOB, LUGO, blurred vision, dizziness or lightheadedness Patient denies symptoms of hypoglycemia (sweating, anxiety, palpitations, hunger, and tremor) Patient denies symptoms of hyperglycemia (polyuria, polydipsia, polyphagia) Patient denies potential medication adverse effects DIET/EXERCISE/SOCIAL Hx: Breakfast: eggs, ham or sausage Lunch: leftovers (today had pasta with hamburger and sauce with chicken leg with corn on cob) Dinner: last night had pepper steak and rice ([employer] restaurant) Snacks: chips (he and goes through 1 large bag of chips per week) Beverages: Diet Mountain Dew (can or 20 oz bottle - drinking 3-5/day); sometimes drinks water Exercise: exercises every other day; stationary bike, tries to do 20-60 mins Tobacco: none MEDICATIONS: Pill bottles are not present Adherence: reports missed doses of AM meds if wakes up late --> will end up taking at lunch instead [facility] coverage: Medicare Affordability: insulin and Ozempic through PAP Diabetes supplies: Dapt[employer] Organization System: original bottles, kept in cabinet ACTIVE PROBLEM LIST Essential Hypertension, Benign Pure Hypercholesterolemia Carpal Tunnel Syndrome Unspecified Glaucoma(365.9) Hemorrhage of Rectum and Anus Benign Neoplasm of Colon Hemorrhage of Gastrointestinal Tract, Unspecified Internal Hemorrhoids Without Mention of Complication 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, With Long-Term Current Use of Insulin (Hcc) History of Colonic Polyps Diverticulosis of Large Intestine Without Hemorrhage PAST MEDICAL HISTORY Diagnosis Date Benign neoplasm of colon BPH without obstruction/lower urinary tract symptoms 04/01/2012 Carpal tunnel syndrome Degeneration of lumbar or lumbosacral intervertebral disc 05/02/2008 Essential hypertension, benign Glaucoma Hemorrhage of rectum and anus Hyperplasia of prostate Pure hypercholesterolemia Gets labs done at [facility] for MIQUEL Siddiqui Type II or unspecified type diabetes mellitus without mention of complication, uncontrolled Continues to follow with MIQUEL Siddiqui, [employer]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--gets labs through [facility] Unspecified glaucoma(365.9) ALLERGIES No Known Allergies Medication List Medication Directions Comments Action/Plan albuterol HFA (VENTOLIN HFA) 90 mcg/actuation inhaler Inhale 2 Puffs as instructed every 4 hours as needed for Wheezing/Shortness of Breath. ASPIRIN 81 MG TAB Take one (1) tablet daily . B COMPLEX CAP take one tablet daily Blood Sugar Diagnostic, Drum (ACCU-CHEK COMPACT TEST) Strp Testing 2-3 times daily COSOPT 2 %-0.5 % EYE DROPS twice daily both eyes Patient not taking: No sig reported enalapril (VASOTEC) 20 mg tablet Take 1 tablet by mouth twice daily. flash glucose sensor (FREESTYLE LUIZA 2 SENSOR) kit Ust to check blood sugars once daily. Please apply free voucher for 1 sensor, pt to bring in glucagon (GVOKE HYPOPEN 2-PACK) 0.5 mg/0.1 mL AutoInjector Use to treat severe hypoglycemic episode as recommend on product labeling. glucose 4 gram chewable tablet Take 4 tablets by mouth as needed. insulin aspart U-100 (NOVOLOG FLEXPEN U-100 INSULIN) 100 unit/mL (3 mL) Inject 9 units before breakfast, 7 units before lunch, and 9 units before dinner. Through [employer] Patient Assistance. insulin degludec (TRESIBA FLEXTOUCH U-100) 100 unit/mL (3 mL) injection pen Inject 20 Units subcutaneously every morning. Patient Assistance Medication Insulin [place], Disposable, (BD ULTRA-FINE DONNIE PEN NEEDLE) 32 gauge x 5/32 Use as directed with insulin injections three times daily Insulin Syringe-Needle U-100 (BD INSULIN SYRINGE UF II) 0.5 mL 31 gauge x 5/16 syrg Use as directed with insulin injections three times daily lancets(FREESTYLE LANCETS) Use as directed. meclizine (ANTIVERT) 25 mg tab Take 1 tablet by mouth three times daily as needed (dizziness). metoprolol succinate ER (TOPROL XL) 25 mg 24 hr tablet Take 1 tablet by mouth once daily. MULTIVITAMIN TAB Take one(1) tablet daily. semaglutide (OZEMPIC) 1 mg/dose (2 mg/1.5 mL) pen injector Inject 1 mg subcutaneously one time a week. Through [employer] Patient Assistance simvastatin (ZOCOR) 40 mg tablet Take 1 tablet by mouth daily at bedtime. tamsulosin (FLOMAX) 0.4 mg Take 2 capsules by mouth daily at bedtime. timolol maleate (TIMOPTIC) 0.25 % ophthalmic solution Use 1 Drop in both eyes twice daily. XALATAN 0.005 % EYE DROPS once daily both eyes Objective: Exam: VITALS: BP 131/71 Pulse 80 Last 3 Encounter BP Readings: Date: BP: 07/14/2022 136/78 07/03/2022 162/94 03/20/2022 104/72 Wt: 76.7 kg (169 lb) BMI: 30.91 kg/(m^2) LABS: Reviewed Lab Results Component Value Date HBA1C 7.5 07/10/2022 HBA1C 7.7 03/03/2022 HBA1C 7.7 10/26/2021 HBA1C 7.7 06/27/2021 HBA1C 9.3 11/01/2020 HBA1C 10.0 11/08/2019 CMP: Glucose 138 07/10/2022 BUN 16 07/10/2022 Creatinine 0.91 07/10/2022 NA 142 07/10/2022 K 4.0 07/10/2022 Chloride 104 07/10/2022 CO2 28 07/10/2022 Protein, Total 6.9 07/10/2022 Albumin 4.1 07/10/2022 Calcium 9.8 07/10/2022 Alk Phos Total 131 07/10/2022 Bilirubin, Total 0.4 07/10/2022 AST (SGOT) 22 07/10/2022 ALT (SGPT) 22 07/10/2022 eGFR 92 (per CMP on 12/19/22) Lab Results Component Value Date CHOL 174 07/10/2022 CHOL 149 06/27/2021 LDL 94 07/10/2022 LDL 67 06/27/2021 HDL 66 07/10/2022 HDL 62 06/27/2021 TG 72 07/10/2022 TG 102 06/27/2021 The 10-year ASCVD risk score (Katya CHAPARRO, et al., 2019) is: 31.3% Values used to calculate the score: Age: 67 years Sex: Male Is Non- : No Diabetic: Yes Tobacco smoker: No Systolic Blood Pressure: 136 mmHg Is BP treated: Yes HDL Cholesterol: 66 mg/dL Total Cholesterol: 174 mg/dL Albumin/Creat Ratio (mg/g) Date Value 10/26/2021 31 (H) PHARMACOTHERAPY ASSESSMENT/PLAN: 1. Type 2 diabetes mellitus with microalbuminuria, with long-term current use of insulin ([facility]) - ICD9: 250.40, 791.0, V58.67, ICD10: E11.29, R80.9, Z79.4 A1c goal < 8%; controlled (last A1c 7.5%); CGM report shows poor control likely due to poor diet over holidays and patient-reported lack of recent exercise due to vertigo issues; occasionally having significant BG spikes after meals, patient thinks he is doing well with insulin but admits that maybe he may be missing some mealtime shots; tolerating regimen well; patient awaiting confirmation from [employer] for 2022 application status for insulins and Ozempic (increased dose of Ozempic (2mg) was ordered so will plan to start that higher dose once shipment received); no med changes today but advised patient to focus on better med adherence and dietary modifications; renal fxn and LFTs sufficient for use CONTINUE Ozempic 1mg weekly (until gets PAP shipment, then increase to 2mg weekly), Tresiba 20 units daily, and Novolog 9 units TIDAC Focus on adherence to insulins Advised to contact [facility] to inquire about 2022 application status, let me know if any issues Encouraged lifestyle modifications: drink more water and less diet Mountain Dew, eat an additional 2 servings of fruit and non-starchy veggies each daily Advised purchasing pill box HbA1c: due 10/08 Follow-up Patient is scheduled to see PCP team on 11/13/22. Patient to have f/up with PharmD team on 09/14/22. Patient verbalized understanding of instructions. Joce Celaya PharmD, BCPS Primary Care Clinical Pharmacist The majority of the pharmacy visit (> 50%) was spent counseling and/or coordinating care for the patient. interaction: face to face time was 29 minutes. documented in this encounter [facility] 07-27-2022 Instructions Joce Celaya RPh - 07/27/2022 1:00 PM EST Call [employer] to learn the status of the application for OzempLebron millersicuauhtemoc, and Novolog. Call within the next week and let me know if there is any issue. Their phone # is [phone]. Start using a pill box to help organize meds. Start drinking more water and less diet Mountain Dew. Try to incorporate 2 servings of non-starchy vegetables and 2 servings of fruit into your diet daily. Cut back on potato chips. Make sure you are consistently taking your mealtime insulin. documented in this encounter [facility] 07-14-2022 History of Present illness Narrative This note was created using [employer]. Subjective Jing Mckeon is a 66 year old male. Jing Mckeon is a 66 year old year old gentleman here today for 4 month follow up appointment for review of medical conditions. Patient overall doing well. A week ago patient went to express care for dizziness and vertigo like symptoms. Patient notes spinning, wobbly gait, couple bouts of emesis. Denies tinnitus or visual disturbances. Failed romberg test in express care. Express care referred patient to the ER. ER work up negative. EKG normal. CT head normal. Notes improvement since last week. Patient still notes intermittent wobbly episodes. Meclizine effective - ran out earlier this week, wishes to get more. HTN: Borderline elevated today at 140/82. Repeat BP 136/78. Denies checking BP at home - plans to get a BP machine. Compliant with meds. Denies chest pain, palpitations, edema, or SOB. DM: Recent Hgb A1c trending down - 7.5 from 7.7. Tolerating CMP well. Average fastin-180 Mornin-140 Lunch: 150-160 Evenin-200s HS: 170-200s. Compliant with meds. Tolerating well. Eats salads, chicken, red meat, pasta, mongolian. Trys to watch sodium, fat and cholesterol intake. Lipids reviewed - stable. Sleep: Sleeping okay. Averages 8 hours. Aids sleep with melatonin. Wakes up occasionally throughout the night. Exercise: Uses stationary bike but has not used it much due to vertigo like symptoms. Notes lack of energy Stress: Denies being stressed. Review of Systems Constitutional: Positive for activity change. Decreased activity secondary to vertigo like symptoms. HENT: Negative for hearing loss and tinnitus. Eyes: Negative for photophobia and visual disturbance. Genitourinary: Positive for difficulty urinating and frequency. Secondary to BPH - improvement with flomax Neurological: Positive for dizziness and weakness. Negative for syncope. All other systems reviewed and are negative. Objective BP 140/82 Pulse 76 Wt 76.7 kg (169 lb) SpO2 97% BMI 30.91 kg/m Component Latest Ref Rng & Units 03/03/2022 07/10/2022 Protein, Total 6.3 - 8.0 g/dL 7.1 6.9 Albumin 3.9 - 4.9 g/dL 4.0 4.1 Calcium 8.5 - 10.2 mg/dL 9.8 9.8 Bilirubin, Total 0.2 - 1.3 mg/dL 0.3 0.4 Alkaline Phosphatase 38 - 113 U/L 112 131 (H) AST 14 - 40 U/L 24 22 ALT 10 - 54 U/L 16 22 Glucose 74 - 99 mg/dL 102 (H) 138 (H) BUN 9 - 24 mg/dL 15 16 Creatinine 0.73 - 1.22 mg/dL 0.93 0.91 Sodium 136 - 144 mmol/L 143 142 Potassium 3.7 - 5.1 mmol/L 4.0 4.0 Chloride 97 - 105 mmol/L 104 104 CO2 22 - 30 mmol/L 28 28 Anion Gap 9 - 18 mmol/L 11 10 eGFR >=60 mL/min/1.73m 89 92 Cholesterol, Total <200 mg/dL 174 Triglyceride <150 mg/dL 72 HDL Cholesterol >39 mg/dL 66 Non HDL Cholesterol <130 mg/dL 108 Fasting Time hrs 10 VLDL Cholesterol <30 mg/dL 14 TC:HDL Ratio <5.10 2.64 LDL Cholesterol <100 mg/dL 94 LDL:HDL Ratio <2.54 1.42 Hemoglobin A1C 4.3 - 5.6 % 7.7 (H) 7.5 (H) Estimated Average Glucose mg/dL 174 169 Hemoglobin A1C (%) Date Value 07/10/2022 7.5 03/03/2022 7.7 10/26/2021 7.7 06/27/2021 7.7 11/01/2020 9.3 11/08/2019 10.0 07/07/2019 9.9 12/30/2018 8.9 Physical Exam Vitals reviewed. Constitutional: Appearance: Normal appearance. HENT: Head: Normocephalic and atraumatic. Mouth/Throat: Mouth: Mucous membranes are moist. Pharynx: Oropharynx is clear. Eyes: Extraocular Movements: Extraocular movements intact. Conjunctiva/sclera: Conjunctivae normal. Pupils: Pupils are equal, round, and reactive to light. Cardiovascular: Rate and Rhythm: Normal rate and regular rhythm. Pulses: Normal pulses. Heart sounds: Normal heart sounds. Pulmonary: Effort: Pulmonary effort is normal. Breath sounds: Normal breath sounds. Abdominal: Palpations: Abdomen is soft. Musculoskeletal: General: Normal range of motion. Cervical back: Normal range of motion. Skin: General: Skin is dry. Neurological: General: No focal deficit present. Mental Status: He is alert and oriented to person, place, and time. Sensory: Sensation is intact. Motor: Motor function is intact. Gait: Gait is intact. Psychiatric: Mood and Affect: Mood normal. Behavior: Behavior normal. Thought Content: Thought content normal. Judgment: Judgment normal. Feet: Shoes and socks removed, No deformities, ulcers, calluses, normal distal pulses, and sensitive to 10 gm monofilament Assessment and Plan Encounter Diagnosis ICD-10-CM 1. Type 2 diabetes mellitus with microalbuminuria, with long-term current use of insulin (HCC) E11.29 HGB A1C R80.9 COMP METABOLIC PANEL Z79.4 ALBUMIN/CREAT RATIO RND UR 2. Essential hypertension, benign I10 COMP METABOLIC PANEL 3. Pure hypercholesterolemia E78.00 4. Vertigo R42 Improving. Further evaluation and treatment as indicated. PT, neuro or ENT referral as needed. Okay meclizine as needed, not for routine use 5. Encounter for immunization Z23 INFLUENZA SEASONAL QUADRIVALENT HIGH DOSE AGE 65+ Above issues addressed with patient. Patient involved in shared decision making for management of medical issues. History and medications reviewed. Epic updated as needed Refills and/or prescriptions taken care of and meds adjusted as indicated after reviewed history, exam and labs. Health Maintenance reviewed. Updated record and/or ordered tests as recorded. Encouraged on efforts at healthy diet and regular exercise and adequate sleep. Son Zambrano MD TEACHING PHYSICIAN NOTE OF PERSONAL INVOLVEMENT IN CARE: I have personally seen and examined the patient and performed the medical decision-making components. I have reviewed the medical student documentation and verified the findings in the note as written. Any additions or changes are noted in bold/italics. Signature: Son Zambrano Date: 08/07/2022 Time: 2:02 AM documented in this encounter [facility] 07-10-2022 Miscellaneous Notes Spoke with patient. Dizziness comes and goes. Some days are better than others. Patient is still taking a whole tablet of meclizine, states it is not effecting his eating as previously reported. Blood sugars are doing pretty good, only occasional elevation. Feels pretty good BP smith but doesn't know what reading are. Plans to get BP cuff so can test. Check status, if doing well OK to close note. Spoke with patient and dizziness continues but not as bad. Did instruct patient to take 1/2 tablet of the meclizine when needed. He states yesterday blood sugars were great but today they are running high. He does not have a blood pressure cuff at home to check his blood pressure. What are blood sugars? BP and HR? OK to take a half tablet meclizine to see if this makes him less sleepy - 12.5mg as needed for dizziness. If no longer dizzy can stop taking meclizine. ER if severe or concerning symptoms advised. Obtain ER notes, schedule visit if needed. . Pt was to ER last weak for dizziness and was given Meclizine 25 mg taking this (3) times per day. This medication is making pt very sleepy and not eating a lot because he is sleeping all the time. Concern may need need to decrease medication so pt can eat, he is diabetic. declines ER FU apt and states just needs to have this message sent to the doctor to be addressed. Please advise . Kourtney Hauser LPN documented in this encounter [facility] 07-03-2022 History of Present illness Narrative Patient came in with complaints of dizziness and vomiting. Patient had an episode a week ago. Patient had another episode today. Patient says he feels better. Failed the Romberg test. Patient felt that heel-to-toe test. Patient is being sent to the ER for full evaluation. Patient was okay with this care plan. documented in this encounter [facility] 06-22-2022 Miscellaneous Notes Patient no-showed to PharmD visit today. Spoke with patient, he forgot. Rescheduled appt for 07/27. Joce Celaya PharmD, [facility] Primary Care Clinical Pharmacist documented in this encounter [facility] 06-08-2022 Miscellaneous Notes PAP pharmacy technicians completed application. Now requires PCP and patient signatures. Also needs copy of insurance card and income verification. Will plan to get at upcoming appt on 06/22. Tried calling patient to inform him to bring in the required documents to upcoming appt but unable to reach or LMOM. MyChart not active. Joce Celaya, Chantelle, BCPS Primary Care Clinical Pharmacist documented in this encounter [facility] 04-27-2022 History of Present illness Narrative Images from the original note were not included. Primary Care Pharmacy Visit CC (Reason for Consult): Diabetes Goal: A1c < 8% Collaborating Provider: Dr. Zambrano Last Provider Visit: 03/07/22 Jing Mckeon is a 66 year old male presenting for follow up visit in person. Patient consents to pharmacy collaborative practice agreement. Patient is presenting today for f/up pharmacotherapy management appointment for diabetes. At last PharmD visit on 03/20, Novolog was decreased for low BG events. Subjective: HPI: Still having some low blood sugars despite decreasing insulin. States it happens 2-3x/week but doesn't feel sx unless it gets super low into the 50s or low 60s. His alarm goes off several times per week. [facility] the [facility]. Said in the past he had to call paramedics 3 times for low Bgs, hasn't needed to do that since having the FL2. Denies issues with dry mouth or thirst. Has prostate issues, wakes up rarely at night, has more issues during the day. Personal goals: keeps Bgs controlled; avoid low BG events; eliminate highs Current DM Medications: Semaglutide (Ozempic) 1mg weekly on Sunday Insulin degludec (Tresiba) 20 units once daily QAM Insulin aspart (Novolog) 9 units TIDAC Current HTN Medications: Enalapril 20mg twice daily Metoprolol succinate ER 25mg once weekly GLYCEMIC CONTROL: Hypoglycemia: glucose tabs Preventative Medications: On LARA/ARB: Yes On Statin: Yes ROS: Patient denies CP, SOB, LUGO, blurred vision, dizziness or lightheadedness Patient denies symptoms of hypoglycemia (sweating, anxiety, palpitations, hunger, and tremor) Patient denies symptoms of hyperglycemia (polyuria, polydipsia, polyphagia) Patient denies potential medication adverse effects DIET/EXERCISE/SOCIAL Hx: Breakfast: today had sausage gravy and biscuit Lunch: chili (around noon) MEDICATIONS: Pill bottles are not present Adherence: denies missed doses [facility] coverage: Medicare Affordability: insulin and Ozempic through PAP Diabetes supplies: Freestyle Luiza 2 ACTIVE PROBLEM LIST Essential Hypertension, Benign Pure Hypercholesterolemia Carpal Tunnel Syndrome Unspecified Glaucoma(365.9) Hemorrhage of Rectum and Anus Benign Neoplasm of Colon Hemorrhage of Gastrointestinal Tract, Unspecified Internal Hemorrhoids Without Mention of Complication 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, With Long-Term Current Use of Insulin (Hcc) History of Colonic Polyps Diverticulosis of Large Intestine Without Hemorrhage PAST MEDICAL HISTORY Diagnosis Date Benign neoplasm of colon BPH without obstruction/lower urinary tract symptoms 04/01/2012 Carpal tunnel syndrome Degeneration of lumbar or lumbosacral intervertebral disc 05/02/2008 Essential hypertension, benign Glaucoma Hemorrhage of rectum and anus Hyperplasia of prostate Pure hypercholesterolemia Gets labs done at [facility] for MIQUEL Siddiqui Type II or unspecified type diabetes mellitus without mention of complication, uncontrolled Continues to follow with MIQUEL Siddiqui CNP/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--gets labs through [facility] Unspecified glaucoma(365.9) ALLERGIES No Known Allergies Medication List Medication Directions Comments Action/Plan albuterol HFA (VENTOLIN HFA) 90 mcg/actuation inhaler Inhale 2 Puffs as instructed every 4 hours as needed for Wheezing/Shortness of Breath. ASPIRIN 81 MG TAB Take one (1) tablet daily . B COMPLEX CAP take one tablet daily Blood Sugar Diagnostic, Drum (ACCU-CHEK COMPACT TEST) Strp Testing 2-3 times daily COSOPT 2 %-0.5 % EYE DROPS twice daily both eyes Patient not taking: No sig reported enalapril (VASOTEC) 20 mg tablet Take 1 tablet by mouth twice daily. flash glucose sensor (FREESTYLE LUIZA 2 SENSOR) kit Ust to check blood sugars once daily. Please apply free voucher for 1 sensor, pt to bring in glucose 4 gram chewable tablet Take 4 tablets by mouth as needed. insulin aspart U-100 (NOVOLOG FLEXPEN U-100 INSULIN) 100 unit/mL (3 mL) Inject 9 Units subcutaneously three times daily before meals. Through [employer] Patient Assistance. insulin degludec (TRESIBA FLEXTOUCH U-100) 100 unit/mL (3 mL) injection pen Inject 20 Units subcutaneously every morning. Patient Assistance Medication Insulin [place], Disposable, (BD ULTRA-FINE DONNIE PEN NEEDLE) 32 gauge x 5/32 Use as directed with insulin injections three times daily Insulin Syringe-Needle U-100 (BD INSULIN SYRINGE UF II) 0.5 mL 31 gauge x 5/16 syrg Use as directed with insulin injections three times daily lancets(FREESTYLE LANCETS) Use as directed. metoprolol succinate ER (TOPROL XL) 25 mg 24 hr tablet Take 1 tablet by mouth once daily. MULTIVITAMIN TAB Take one(1) tablet daily. semaglutide (OZEMPIC) 1 mg/dose (2 mg/1.5 mL) pen injector Inject 1 mg subcutaneously one time a week. Through [employer] Patient Assistance simvastatin (ZOCOR) 40 mg tablet Take 1 tablet by mouth daily at bedtime. tamsulosin (FLOMAX) 0.4 mg Take 2 capsules by mouth daily at bedtime. timolol maleate (TIMOPTIC) 0.25 % ophthalmic solution Use 1 Drop in both eyes twice daily. XALATAN 0.005 % EYE DROPS once daily both eyes Objective: Exam: Last 3 Encounter BP Readings: Date: BP: 03/20/2022 104/72 03/07/2022 132/78 11/02/2021 112/70[needs arm completely relaxed to get BP down[ Wt: 75.3 kg (166 lb) BMI: 30.36 kg/(m^2) LABS: Reviewed Lab Results Component Value Date HBA1C 7.7 03/03/2022 HBA1C 7.7 10/26/2021 HBA1C 7.7 06/27/2021 HBA1C 9.3 11/01/2020 HBA1C 10.0 11/08/2019 CMP: Glucose 102 03/03/2022 BUN 15 03/03/2022 Creatinine 0.93 03/03/2022 NA 143 03/03/2022 K 4.0 03/03/2022 Chloride 104 03/03/2022 CO2 28 03/03/2022 Protein, Total 7.1 03/03/2022 Albumin 4.0 03/03/2022 Calcium 9.8 03/03/2022 Alk Phos Total 112 03/03/2022 Bilirubin, Total 0.3 03/03/2022 AST (SGOT) 24 03/03/2022 ALT (SGPT) 16 03/03/2022 eGFR 89 (per CMP 03/03/22) Lab Results Component Value Date CHOL 158 10/26/2021 CHOL 149 06/27/2021 LDL 73 10/26/2021 LDL 67 06/27/2021 HDL 65 10/26/2021 HDL 62 06/27/2021 TG 101 10/26/2021 TG 102 06/27/2021 The 10-year ASCVD risk score (Katya CHAPARRO, et al., 2019) is: 18.3% Values used to calculate the score: Age: 66 years Sex: Male Is Non- : No Diabetic: Yes Tobacco smoker: No Systolic Blood Pressure: 104 mmHg Is BP treated: Yes HDL Cholesterol: 65 mg/dL Total Cholesterol: 158 mg/dL Albumin/Creat Ratio (mg/g) Date Value 10/26/2021 31 (H) PHARMACOTHERAPY ASSESSMENT/PLAN: 1. Type 2 diabetes mellitus with microalbuminuria, with long-term current use of insulin ([facility]) - ICD9: 250.40, 791.0, V58.67, ICD10: E11.29, R80.9, Z79.4 A1c goal < 8%; controlled (last A1c 7.7%); TIR improved but still not at goal of >70%; occasionally still having some lows so will reduce lunchtime insulin today; f/up in ~2 months DECREASE lunchtime dose of Novolog to 7 units (new regimen is Novolog 9-7-9 units TIDAC) CONTINUE Ozempic 1mg weekly and Tresiba 20 units daily Will plan to increase Ozempic to 2mg with PAP renewal application for 2022 Encouraged reviewing Cgm readings to identify how certain foods/quantities impact BG and make changes accordingly Advised to check BG with fingersticks if CGM alarm goes off but doesn't feel low Reviewed treatment of high BG - exercise, drink water, avoid additional carbs Ordered glucagon to have on hand HbA1c: due 06/03 Follow-up Patient is scheduled to see PCP team on 07/14. Patient to have f/up with PharmD team on 06/22. Patient verbalized understanding of instructions. Joce Celaya PharmD, [facility] Primary Care Clinical Pharmacist The majority of the pharmacy visit (> 50%) was spent counseling and/or coordinating care for the patient. interaction: face to face time was 30 minutes. documented in this encounter [facility] 04-27-2022 Instructions Joce Celaya RPh - 04/27/2022 1:00 PM EDT DECREASE lunchtime dose of Novolog to 7 units daily (new regimen is 9 units with breakfast, 7 units with lunch, and 9 units with dinner). Use your [employer] Luiza to learn how different foods/meals impact your blood sugar. Work to cut back on carbs and incorporate more lean protein and vegetables into your diet. If your reader says you are low but you do not feel low, double check with a fingerstick. If your sugars are high, you can help to reduce your sugars by drinking water and exercising. If you do not get paperwork from [employer] in the mail by mid-May with regards to re-enrolling for 2022, let PharmD know. documented in this encounter [facility] 04-24-2022 Miscellaneous Notes Letter mailed to patient's home address of medication available in office. 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 Primary Care Pharmacy Visit REASON FOR CONSULT: DM GOALS: A1c < 8% CONSULTING PROVIDER: Dr. Zambrano Date of Consult: 04/07/2020 Jing Mckeon is a 66 year old male presenting for follow up visit in person. Patient consents to pharmacy collaborative practice agreement. Last seen by Jossy Caruso APRN.[facility]OUT on 03/07/22. At last [facility]OUT appt, no medication changes made, labs ordered. INTERIM HISTORY: Reports continue low BG readings Confirms he has stopped utilizing sliding scale with the Novolog as instructed Lows typically occur after a meal Reports he has about 2 boxes of Ozempic remaining from patient assistance Current DM Medications: Semaglutide (Ozempic) 1 mg once weekly on Sunday Insulin degludec (Tresiba) 20 units once daily QAM Insulin aspart (Novolog) 11 units TIDAC Current HTN Meds: Enalapril 20 mg twice daily Metoprolol succinate ER 25 mg once weekly Preventative Medications: On LARA/ARB: Yes On Statin: Yes GLYCEMIC CONTROL: Summary of CGM Findings: 1- CGM recording is adequate for interpretation. 2- Average glucose is 172 mg/dL. 3- Total frequency of hypoglycemia: 1% 4- Nocturnal hypoglycemia was not noted. 5- Hyperglycemic episodes: 39% 6- Time in target range (70-180 mg/dL): 60% ROS: Patient denies CP, SOB, LUGO, blurred vision, dizziness or lightheadedness Patient denies nausea, vomiting, diarrhea, abdominal pain Patient denies symptoms of hypoglycemia (sweating, anxiety, palpitations, hunger, and tremor) Patient denies symptoms of hyperglycemia (polyuria, polydipsia, polyphagia) Patient denies potential medication adverse effects MEDICATIONS: Adherence: denies missed doses Pharmacy: [facility] Rx coverage: Medicare Affordability: brand meds costly; gets insulins and Ozempic through [facility] [facility] PAP Diabetes supplies: Freestyle Luiza 2 Organization System: original bottles ACTIVE PROBLEM LIST Essential Hypertension, Benign Pure Hypercholesterolemia Carpal Tunnel Syndrome Unspecified Glaucoma(365.9) Hemorrhage of Rectum and Anus Benign Neoplasm of Colon Hemorrhage of Gastrointestinal Tract, Unspecified Internal Hemorrhoids Without Mention of Complication 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, With Long-Term Current Use of Insulin (Hcc) History of Colonic Polyps Diverticulosis of Large Intestine Without Hemorrhage PAST MEDICAL HISTORY Diagnosis Date Benign neoplasm of colon BPH without obstruction/lower urinary tract symptoms 04/01/2012 Carpal tunnel syndrome Degeneration of lumbar or lumbosacral intervertebral disc 05/02/2008 Essential hypertension, benign Glaucoma Hemorrhage of rectum and anus Hyperplasia of prostate Pure hypercholesterolemia Gets labs done at [facility] for MIQUEL Siddiqui Type II or unspecified type diabetes mellitus without mention of complication, uncontrolled Continues to follow with MIQUEL Siddiqui, [employer]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--gets labs through [facility] Unspecified glaucoma(365.9) ALLERGIES No Known Allergies Current Outpatient Medications Medication Sig insulin aspart U-100 (NOVOLOG FLEXPEN U-100 INSULIN) 100 unit/mL (3 mL) Inject 11 Units subcutaneously three times daily before meals. Through [employer] Patient Assistance. metoprolol succinate ER (TOPROL XL) 25 mg 24 hr tablet Take 1 tablet by mouth once daily. tamsulosin (FLOMAX) 0.4 mg Take 2 capsules by mouth daily at bedtime. enalapril (VASOTEC) 20 mg tablet Take 1 tablet by mouth twice daily. glucose 4 gram chewable tablet Take 4 tablets by mouth as needed. simvastatin (ZOCOR) 40 mg tablet Take 1 tablet by mouth daily at bedtime. flash glucose sensor (FREESTYLE LUIZA 2 SENSOR) kit Ust to check blood sugars once daily. Please apply free voucher for 1 sensor, pt to bring in semaglutide (OZEMPIC) 1 mg/dose (2 mg/1.5 mL) pen injector Inject 1 mg subcutaneously one time a week. Through [employer] Patient Assistance Insulin [place], Disposable, (BD ULTRA-FINE DONNIE PEN NEEDLE) 32 gauge x 32 Use as directed with insulin injections three times daily insulin degludec (TRESIBA FLEXTOUCH U-100) 100 unit/mL (3 mL) injection pen Inject 20 Units subcutaneously every morning. Patient Assistance Medication albuterol HFA (VENTOLIN HFA) 90 mcg/actuation inhaler Inhale 2 Puffs as instructed every 4 hours as needed for Wheezing/Shortness of Breath. Insulin Syringe-Needle U-100 (BD INSULIN SYRINGE UF II) 0.5 mL 31 gauge x 5/16 syrg Use as directed with insulin injections three times daily timolol maleate (TIMOPTIC) 0.25 % ophthalmic solution Use 1 Drop in both eyes twice daily. Blood Sugar Diagnostic, Drum (ACCU-CHEK COMPACT TEST) Strp Testing 2-3 times daily lancets(FREESTYLE LANCETS) Use as directed. XALATAN 0.005 % EYE DROPS once daily both eyes COSOPT 2 %-0.5 % EYE DROPS twice daily both eyes (Patient not taking: No sig reported) ASPIRIN 81 MG TAB Take one (1) tablet daily . B COMPLEX CAP take one tablet daily MULTIVITAMIN TAB Take one(1) tablet daily. No current facility-administered medications for this visit. EXAM: Last 3 Encounter BP Readings: Date: BP: 03/07/2022 132/78 11/02/2021 112/70[needs arm completely relaxed to get BP down[ 08/15/2021 128/73 Wt: 75.3 kg (166 lb) BMI: 30.36 kg/(m^2) LABS: Lab Results Component Value Date HBA1C 7.7 03/03/2022 HBA1C 7.7 10/26/2021 HBA1C 7.7 06/27/2021 HBA1C 9.3 11/01/2020 HBA1C 10.0 11/08/2019 CMP: Glucose 102 03/03/2022 BUN 15 03/03/2022 Creatinine 0.93 03/03/2022 NA 143 03/03/2022 K 4.0 03/03/2022 Chloride 104 03/03/2022 CO2 28 03/03/2022 Protein, Total 7.1 03/03/2022 Albumin 4.0 03/03/2022 Calcium 9.8 03/03/2022 Alk Phos Total 112 03/03/2022 Bilirubin, Total 0.3 03/03/2022 AST (SGOT) 24 03/03/2022 ALT (SGPT) 16 03/03/2022 Creatinine clearance cannot be calculated (Unknown ideal weight.) GFR (mL/MIN) Date Value 09/21/2018 94 eGFR- (no units) Date Value 06/27/2021 >60 No results found for: B12 Lab Results Component Value Date CHOL 158 10/26/2021 CHOL 149 06/27/2021 LDL 73 10/26/2021 LDL 67 06/27/2021 HDL 65 10/26/2021 HDL 62 06/27/2021 TG 101 10/26/2021 TG 102 06/27/2021 The 10-year ASCVD risk score (Katya CHAPARRO, et al., 2019) is: 26.7% Values used to calculate the score: Age: 66 years Sex: Male Is Non- : No Diabetic: Yes Tobacco smoker: No Systolic Blood Pressure: 132 mmHg Is BP treated: Yes HDL Cholesterol: 65 mg/dL Total Cholesterol: 158 mg/dL Albumin/Creat Ratio (mg/g) Date Value 10/26/2021 31 (H) PHARMACOTHERAPY ASSESSMENT/PLAN: 1. Type 2 diabetes mellitus with microalbuminuria, with long-term current use of insulin ([facility]) - ICD9: 250.40, 791.0, V58.67, ICD10: E11.29, R80.9, Z79.4 138/75 A1c goal < 8%; at goal based on last A1c (7.7%); CGM shows BG readings are mostly at goal with 60% of readings within the goal target range of 70 -180 mg/dL. Reports s/sx of hypoglycemia. Today, will decrease bolus insulin to prevent hypoglycemia. Patient has 2 months worth of Ozempic current dose supply remaining. With next refill request through patient assistance, can consider further optimizing Ozempic dose. In the future, can also consider addition of SGLT2 inh to see if able to further decrease insulin requirements. Decrease Novolog to 9 units three times daily before meals Continue Tresiba 20 units once daily and Ozempic 1 mg weekly Follow up: Patient is scheduled to see PCP team on 03/07/22. Patient to follow up with Pharmacy team on 04/27/22. Patient verbalized understanding of instructions. Ellis Hernandez PharmD, BCACP Primary Care Clinical Pharmacist [facility] The majority of the pharmacy visit (> 50%) was spent counseling and/or coordinating care for the patient. [Face to Face] time was 20 minutes. documented in this encounter [facility] 03-20-2022 Instructions Ellis Hernandez RPh - 03/20/2022 11:30 AM EDT Decrease Novolog to 9 units three times daily before meals Continue Tresiba 20 units once daily and Ozempic 1 mg weekly documented in this encounter [facility] 03-13-2022 History of Present illness Narrative HPI Jing Mckeon is a 66 year old male who presents with follow-up bradycardia or infection. Patient doing much better patient has no complaints. ROS General Weight loss: No Fatigue: No Night sweats:No Cardiac Chest pain:No Fast heart rate:No Swelling in the feet:No Respiratory Short of breath:No Cough:No Wheezing:No Gastrointestinal Nausea:No Vomiting:No Indigestion:No Past medical history, family history, and social history reviewed. PE There were no vitals taken for this visit. General: Patient is awake, alert, NAD. Voice is normal. Skin: normal Eyes: Extraocular motion and Gaze is normal. Ears: Right external auditory canal is normal. TMJ: normal. Right tympanic membranes normal. Left external auditory canal is normal. Left tympanic membrane normal. Nose: Septum is normal. Turbinates are normal. Nasopharynx:normal Oral Cavity/Oropharynx: Lips normal Dentition normal Tongue normal. Tonsils normal. Palate and uvula normal. Pharynx posterior normal Hypopharynx: Base of tongue normal Pyriform sinus normal. Larynx: Vocal cords normal. Epiglottis normal. Post cricoid normal. Salivary glands: Parotid normal. Submandibular and sublingual normal. Thyroid: normal. Lymphatic/Neck: Lymph nodes normal. Neurologic: Facial nerve normal. ASSESSMENT/PLAN: 1. Chronic allergic otitis media of right ear - ICD9: 381.3, ICD10: H65.411 Follow-up as needed Andrew Foster MD Findings will be communicated to the referring physician via mail or electronic medical record. documented in this encounter [facility] 03-07-2022 Instructions Jossy Caruso APRN.CNS - 03/07/2022 11:37 AM EDT We encourage the COVID-19 vaccine and influenza vaccine. If you decide to proceed with this you may get vaccinated at your local pharmacy or return to clinic for this. Check to see if your insurance covers Tdap vaccine and what location to get the vaccine -usually best covered at your local pharmacy where you get prescriptions filled - usually best covered at your local pharmacy where you get prescriptions filled documented in this encounter [facility] 03-07-2022 History of Present illness Narrative SUBJECTIVE: COVID-19 VACCINE(3 - Booster for Moderna series) due on 08/31/2021 DTAP,TDAP,TD(2 - Td or Tdap) due on 04/01/2022 HPI Jing Mckeon is a 66 year old male. PMH signfiicant for ACTIVE PROBLEM LIST Essential Hypertension, Benign Pure Hypercholesterolemia Carpal Tunnel Syndrome Unspecified Glaucoma(365.9) Hemorrhage of Rectum and Anus Benign Neoplasm of Colon Hemorrhage of Gastrointestinal Tract, Unspecified Internal Hemorrhoids Without Mention of Complication 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, With Long-Term Current Use of Insulin (Hcc) History of Colonic Polyps Diverticulosis of Large Intestine Without Hemorrhage Last seen by PCP 10/2021. Has followed with PharmD regarding DM. CGM ordered. He notes this is working well for him. Has received [employer], Novolog and [employer] supply. He reports not being as active as he probably should. Notes trying to adhere to diabetic diet. DIABETES MELLITUS: Notes BS typically less than 200. No report excessive thirst or increased frequency of urination, chest pain or dyspnea , numbness, tingling or pain in extremities, new or unusual visual symptoms, low sugar/hypoglycemic reactions, weight loss/gain, lightheadedness/dizziness, and bowel changes/loose stools. Patient's last HgA1C was Hemoglobin A1C (%) Date Value 03/03/2022 7.7 10/26/2021 7.7 06/27/2021 7.7 11/01/2020 9.3 ) Review of Systems Constitutional: Negative. Endocrine: Negative. Objective BP 132/78 Pulse 80 Resp 16 Wt 75.3 kg (166 lb) BMI 30.36 kg/m Physical Exam Vitals and nursing note reviewed. Constitutional: Appearance: Normal appearance. HENT: Head: Normocephalic and atraumatic. Eyes: Conjunctiva/sclera: Conjunctivae normal. Neck: Thyroid: No thyromegaly. Vascular: Normal carotid pulses. No JVD. Cardiovascular: Rate and Rhythm: Normal rate and regular rhythm. Pulses: Carotid pulses are 2+ on the right side and 2+ on the left side. Radial pulses are 2+ on the right side and 2+ on the left side. Pulmonary: Effort: Pulmonary effort is normal. Breath sounds: Normal breath sounds. Abdominal: General: Bowel sounds are normal. Palpations: Abdomen is soft. Skin: General: Skin is warm and dry. Neurological: General: No focal deficit present. Mental Status: He is alert and oriented to person, place, and time. ALLERGIES No Known Allergies Medications insulin aspart U-100 (NOVOLOG FLEXPEN U-100 INSULIN) 100 unit/mL (3 mL) Inject 11 Units subcutaneously three times daily before meals. Through [employer] Patient Assistance. metoprolol succinate ER (TOPROL XL) 25 mg 24 hr tablet Take 1 tablet by mouth once daily. tamsulosin (FLOMAX) 0.4 mg Take 2 capsules by mouth daily at bedtime. enalapril (VASOTEC) 20 mg tablet Take 1 tablet by mouth twice daily. glucose 4 gram chewable tablet Take 4 tablets by mouth as needed. simvastatin (ZOCOR) 40 mg tablet Take 1 tablet by mouth daily at bedtime. flash glucose sensor (FREESTYLE LUZIA 2 SENSOR) kit Ust to check blood sugars once daily. Please apply free voucher for 1 sensor, pt to bring in semaglutide (OZEMPIC) 1 mg/dose (2 mg/1.5 mL) pen injector Inject 1 mg subcutaneously one time a week. Through [employer] Patient Assistance Insulin [place], Disposable, (BD ULTRA-FINE DONNIE PEN NEEDLE) 32 gauge x Use as directed with insulin injections three times daily insulin degludec (TRESIBA FLEXTOUCH U-100) 100 unit/mL (3 mL) injection pen Inject 20 Units subcutaneously every morning. Patient Assistance Medication albuterol HFA (VENTOLIN HFA) 90 mcg/actuation inhaler Inhale 2 Puffs as instructed every 4 hours as needed for Wheezing/Shortness of Breath. Insulin Syringe-Needle U-100 (BD INSULIN SYRINGE UF II) 0.5 mL 31 gauge x 5/16 syrg Use as directed with insulin injections three times daily timolol maleate (TIMOPTIC) 0.25 % ophthalmic solution Use 1 Drop in both eyes twice daily. Blood Sugar Diagnostic, Drum (ACCU-CHEK COMPACT TEST) Strp Testing 2-3 times daily lancets(FREESTYLE LANCETS) Use as directed. XALATAN 0.005 % EYE DROPS once daily both eyes COSOPT 2 %-0.5 % EYE DROPS twice daily both eyes (Patient not taking: ) ASPIRIN 81 MG TAB Take one (1) tablet daily . B COMPLEX CAP take one tablet daily MULTIVITAMIN TAB Take one(1) tablet daily. PAST MEDICAL HISTORY Diagnosis Date Benign neoplasm of colon BPH without obstruction/lower urinary tract symptoms 04/01/2012 Carpal tunnel syndrome Degeneration of lumbar or lumbosacral intervertebral disc 05/02/2008 Essential hypertension, benign Glaucoma Hemorrhage of rectum and anus Hyperplasia of prostate Pure hypercholesterolemia Gets labs done at [facility] for MIQUEL Siddiqui Type II or unspecified type diabetes mellitus without mention of complication, uncontrolled Continues to follow with MIQUEL Siddiqui CNP/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--gets labs through [facility] Unspecified glaucoma(365.9) Social History Tobacco Use Smoking status: Never Smokeless tobacco: Never Substance Use Topics Alcohol use: No Drug use: No Component Latest Ref Rng & Units 10/26/2021 03/03/2022 Protein, Total 6.3 - 8.0 g/dL 7.1 7.1 Albumin 3.9 - 4.9 g/dL 4.3 4.0 Calcium 8.5 - 10.2 mg/dL 10.1 9.8 Bilirubin, Total 0.2 - 1.3 mg/dL 0.3 0.3 Alkaline Phosphatase 38 - 113 U/L 119 (H) 112 AST 14 - 40 U/L 23 24 ALT 10 - 54 U/L 19 16 Glucose 74 - 99 mg/dL 162 (H) 102 (H) BUN 9 - 24 mg/dL 18 15 Creatinine 0.73 - 1.22 mg/dL 0.87 0.93 Sodium 136 - 144 mmol/L 141 143 Potassium 3.7 - 5.1 mmol/L 4.4 4.0 Chloride 97 - 105 mmol/L 106 (H) 104 CO2 22 - 30 mmol/L 26 28 Anion Gap 9 - 18 mmol/L 9 11 eGFR >=60 mL/min/1.73m 94 89 WBC 3.70 - 11.00 k/uL 8.72 RBC 4.20 - 6.00 m/uL 4.94 Hemoglobin 13.0 - 17.0 g/dL 15.1 Hematocrit 39.0 - 51.0 % 45.2 MCV 80.0 - 100.0 fL 91.5 MCH 26.0 - 34.0 pg 30.6 MCHC 30.5 - 36.0 g/dL 33.4 RDW-CV 11.5 - 15.0 % 13.1 Platelet Count 150 - 400 k/uL 255 MPV 9.0 - 12.7 fL 11.9 Absolute nRBC <0.01 k/uL <0.01 Cholesterol, Total <200 mg/dL 158 Triglyceride <150 mg/dL 101 HDL Cholesterol >39 mg/dL 65 Non HDL Cholesterol <130 mg/dL 93 Fasting Time hrs 12 VLDL Cholesterol <30 mg/dL 20 TC:HDL Ratio <5.10 2.43 LDL Cholesterol <100 mg/dL 73 LDL:HDL Ratio <2.54 1.12 Creatinine, Ur Random (UCRR) 20.0 - 300.0 mg/dL 232.6 Albumin, Urine Random mg/L 72.6 Albumin/Creat Ratio <30 mg/g 31 (H) Hemoglobin A1C 4.3 - 5.6 % 7.7 (H) 7.7 (H) Estimated Average Glucose mg/dL 174 174 ASSESSMENT/PLAN: 1. Encounter for immunization - ICD9: V03.89, ICD10: Z23 - [employer] COVID-19 VACCINE, AGE 12+ YR ([employer]) 2. Essential hypertension, benign - ICD9: 401.1, ICD10: I10 - good control - Continue current medication(s) - Encouraged dietary sodium restriction/DASH diet - Recommended regular aerobic exercise. - COMP METABOLIC PANEL 3. Type 2 diabetes mellitus with microalbuminuria, with long-term current use of insulin ([facility]CC) - ICD9: 250.40, 791.0, V58.67, ICD10: E11.29, R80.9, Z79.4(primary diagnosis) Controlled. - Continue current medications - Encouraged regular aerobic exercise, DM diet - COMP METABOLIC PANEL - HGB A1C - LIPID PANEL BASIC 4 mo follow up Son Zambrano MD with labs prior Jossy Caruso APRN.[facility] Medical Decision Making: Problems: Moderate: 2+ stable chronic illnesses Data: Unique test(s) ordered: 3+ Risk: Moderate: Drug management Medical Decision Making Level: 4 - Moderate documented in this encounter [facility] 02-20-2022 History of Present illness Narrative HPI Jing Mckeon is a 66 year old male who presents with acute right ear.. Patient complains of blockage in the right ear for approximately a month. Patient denies any pain patient has no other complaints ROS General Weight loss: No Fatigue: No Night sweats:No Cardiac Chest pain:No Fast heart rate:No Swelling in the feet:No Respiratory Short of breath:No Cough:No Wheezing:No Gastrointestinal Nausea:No Vomiting:No Indigestion:No Past medical history, family history, and social history reviewed. PE There were no vitals taken for this visit. General: Patient is awake, alert, NAD. Voice is normal. Skin: normal Eyes: Extraocular motion and Gaze is normal. Ears: Right external auditory canal is normal. TMJ: normal. Right tympanic membranes normal. Some wax bilateral mucopurulence on the right middle ear appears clear some inflammation posterior superior no retraction pocket left external auditory canal is normal. Left tympanic membrane normal. Nose: Septum is normal. Turbinates are normal. Nasopharynx:normal Oral Cavity/Oropharynx: Lips normal Dentition normal Tongue normal. Tonsils normal. Palate and uvula normal. Pharynx posterior normal Hypopharynx: Base of tongue normal Pyriform sinus normal. Larynx: Vocal cords normal. Epiglottis normal. Post cricoid normal. Salivary glands: Parotid normal. Submandibular and sublingual normal. Thyroid: normal. Lymphatic/Neck: Lymph nodes normal. Neurologic: Facial nerve normal. ASSESSMENT/PLAN: 1. Chronic allergic otitis media of right ear - ICD9: 381.3, ICD10: H65.411 (primary diagnosis) 2. Impacted cerumen of both ears - ICD9: 380.4, ICD10: H61.23 Cortisporin otic right follow-up 4 weeks Andrew Foster MD Findings will be communicated to the referring physician via mail or electronic medical record. documented in this encounter [facility] 02-15-2022 History of Present illness Narrative Images from the original note were not included. Primary Care Pharmacy Visit REASON FOR CONSULT: DM GOALS: A1c < 8% CONSULTING PROVIDER: Dr. Zambrano Date of Consult: 04/07/2020 Jing Mckeon is a 66 year old male presenting for follow up visit in person. Patient consents to pharmacy collaborative practice agreement. Last seen by PCP, Dr. Son Zambrano MD on 11/02/21. At last pharmD appt on 12/05, Novolog dose was decreased. At last PharmD visit on 01/16, added sliding scale with bolus insulin. INTERIM HISTORY: Patient reports increased frequency of low blood sugars since adding from sliding scale Feels it causes readings to drop too low Has kept bolus doses apart at least 4 hours and not injecting higher doses than prescribed No significant changes in diet or activity Current DM Medications: Semaglutide (Ozempic) 1 mg once weekly on Sunday Insulin degludec (Tresiba) 20 units once daily QAM Insulin aspart (Novolog) 11 units TIDAC plus sliding scale Add 0 units if Blood Sugar is between 70-150 Add 1 units if BS is between 151-200 Add 2 units if BS is between 201-250 Add 3 units if BS is between 251-300 Add 4 units if BS is between 301-350 Add 5 units if BS is between 351-400 BS > 400 , call your physician Current HTN Meds: Enalapril 20 mg twice daily Metoprolol succinate ER 25 mg once weekly GLYCEMIC CONTROL: CGM Report Summary of Professional CGM Findings: 1- CGM recording is adequate for interpretation. 2- Average glucose is 154 mg/dL. 3- Total frequency of hypoglycemia: 3% 4- Nocturnal hypoglycemia was noted. 5- Hyperglycemic episodes: 29% 6- Time in target range (70-180 mg/dL): 68% ROS: Patient denies CP, SOB, LUGO, blurred vision, dizziness or lightheadedness Patient denies nausea, vomiting, diarrhea, abdominal pain Patient denies symptoms of hypoglycemia (sweating, anxiety, palpitations, hunger, and tremor) Patient denies symptoms of hyperglycemia (polyuria, polydipsia, polyphagia) Patient denies potential medication adverse effects MEDICATIONS: Pill bottles are not present Adherence: denies missed doses Pharmacy: [facility] Rx coverage: [facility] Affordability: brand meds costly; gets insulins and Ozempic through [employer] Diabetes supplies: [employer] System: original bottles ACTIVE PROBLEM LIST Essential Hypertension, Benign Pure Hypercholesterolemia Carpal Tunnel Syndrome Unspecified Glaucoma(365.9) Hemorrhage of Rectum and Anus Benign Neoplasm of Colon Hemorrhage of Gastrointestinal Tract, Unspecified Internal Hemorrhoids Without Mention of Complication 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, With Long-Term Current Use of Insulin ([facility]) History of Colonic Polyps Diverticulosis of Large Intestine Without Hemorrhage PAST MEDICAL HISTORY Diagnosis Date Benign neoplasm of colon BPH without obstruction/lower urinary tract symptoms 04/01/2012 Carpal tunnel syndrome Degeneration of lumbar or lumbosacral intervertebral disc 05/02/2008 Essential hypertension, benign Glaucoma Hemorrhage of rectum and anus Hyperplasia of prostate Pure hypercholesterolemia Gets labs done at [facility] for MIQUEL Siddiqui Type II or unspecified type diabetes mellitus without mention of complication, uncontrolled Continues to follow with MIQUEL Siddiqui CNP/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--gets labs through [facility] Unspecified glaucoma(365.9) ALLERGIES No Known Allergies Current Outpatient Medications Medication Sig insulin aspart U-100 (NOVOLOG FLEXPEN U-100 INSULIN) 100 unit/mL (3 mL) Inject 11 Units subcutaneously three times daily before meals. Plus sliding scale (1 unit for every 50 mg/dL above 150 mg/dL).Through [employer] Patient Assistance. metoprolol succinate ER (TOPROL XL) 25 mg 24 hr tablet Take 1 tablet by mouth once daily. tamsulosin (FLOMAX) 0.4 mg Take 2 capsules by mouth daily at bedtime. enalapril (VASOTEC) 20 mg tablet Take 1 tablet by mouth twice daily. glucose 4 gram chewable tablet Take 4 tablets by mouth as needed. simvastatin (ZOCOR) 40 mg tablet Take 1 tablet by mouth daily at bedtime. flash glucose sensor (FREESTYLE LUIZA 2 SENSOR) kit Ust to check blood sugars once daily. Please apply free voucher for 1 sensor, pt to bring in semaglutide (OZEMPIC) 1 mg/dose (2 mg/1.5 mL) pen injector Inject 1 mg subcutaneously one time a week. Through [employer] Patient Assistance Insulin [place], Disposable, (BD ULTRA-FINE DONNIE PEN NEEDLE) 32 gauge x 5/32 Use as directed with insulin injections three times daily insulin degludec (TRESIBA FLEXTOUCH U-100) 100 unit/mL (3 mL) injection pen Inject 20 Units subcutaneously every morning. Patient Assistance Medication albuterol HFA (VENTOLIN HFA) 90 mcg/actuation inhaler Inhale 2 Puffs as instructed every 4 hours as needed for Wheezing/Shortness of Breath. Insulin Syringe-Needle U-100 (BD INSULIN SYRINGE UF II) 0.5 mL 31 gauge x 5/16 syrg Use as directed with insulin injections three times daily timolol maleate (TIMOPTIC) 0.25 % ophthalmic solution Use 1 Drop in both eyes twice daily. Blood Sugar Diagnostic, Drum (ACCU-CHEK COMPACT TEST) Strp Testing 2-3 times daily lancets(FREESTYLE LANCETS) Use as directed. XALATAN 0.005 % EYE DROPS once daily both eyes COSOPT 2 %-0.5 % EYE DROPS twice daily both eyes (Patient not taking: ) ASPIRIN 81 MG TAB Take one (1) tablet daily . B COMPLEX CAP take one tablet daily MULTIVITAMIN TAB Take one(1) tablet daily. No current facility-administered medications for this visit. EXAM: Last 3 Encounter BP Readings: Date: BP: 11/02/2021 112/70[needs arm completely relaxed to get BP down[ 08/15/2021 128/73 07/01/2021 138/70 Wt: 78.5 kg (173 lb) BMI: 31.64 kg/(m^2) LABS: Lab Results Component Value Date HBA1C 7.7 10/26/2021 HBA1C 7.7 06/27/2021 HBA1C 9.3 11/01/2020 HBA1C 10.0 11/08/2019 CMP: Glucose 162 10/26/2021 BUN 18 10/26/2021 Creatinine 0.87 10/26/2021 NA 141 10/26/2021 K 4.4 10/26/2021 Chloride 106 10/26/2021 CO2 26 10/26/2021 Protein, Total 7.1 10/26/2021 Albumin 4.3 10/26/2021 Calcium 10.1 10/26/2021 Alk Phos Total 119 10/26/2021 Bilirubin, Total 0.3 10/26/2021 AST (SGOT) 23 10/26/2021 ALT (SGPT) 19 10/26/2021 EGFR: >60 mL/min/1.73m2 No results found for: B12 Lab Results Component Value Date CHOL 158 10/26/2021 CHOL 149 06/27/2021 LDL 73 10/26/2021 LDL 67 06/27/2021 HDL 65 10/26/2021 HDL 62 06/27/2021 TG 101 10/26/2021 TG 102 06/27/2021 The 10-year ASCVD risk score (Bekah GRACE Jr., et al., 2013) is: 20.6% Values used to calculate the score: Age: 66 years Sex: Male Is Non- : No Diabetic: Yes Tobacco smoker: No Systolic Blood Pressure: 112 mmHg Is BP treated: Yes HDL Cholesterol: 65 mg/dL Total Cholesterol: 158 mg/dL Albumin/Creat Ratio (mg/g) Date Value 10/26/2021 31 (H) PHARMACOTHERAPY ASSESSMENT/PLAN: 1. Type 2 diabetes mellitus with microalbuminuria, with long-term current use of insulin ([facility]) - ICD9: 250.40, 791.0, V58.67, ICD10: E11.29, R80.9, Z79.4 A1c goal < 8%; at goal based on last A1c (7.7%); CGM shows BG readings are mostly at goal with 68% of readings within the goal target range of 70 -180 mg/dL. Patient reports increased hypoglycemia with the addition of sliding scale to bolus insulin regimen. Today, will recommend to stop sliding scale and to inject only the base amount of bolus insulin in order to prevent risk of hypoglycemia. In the future, can consider further optimizing Ozempic dose or addition of SGLT2 inh to see if able to further decrease insulin requirements. Change Novolog to 11 units before meals without sliding scale - If low blood sugars continue, ok to decrease Novolog to 10 units Continue Ozempic 1 mg weekly, Tresiba 20 units once daily HbA1c: due now- will complete before upcoming CAVALRY SCOUT visit - INSULIN ASPART (U-100) 100 UNIT/ML (3 ML) SUBCUTANEOUS PEN Follow up: Patient is scheduled to see PCP team on 03/07/22. Patient to follow up with PharmD on 03/13/22. Patient verbalized understanding of instructions. Ellis Hernandez PharmD, BCACP Primary Care Clinical Pharmacist [facility] The majority of the pharmacy visit (> 50%) was spent counseling and/or coordinating care for the patient. [Face to Face] time was 27 minutes. documented in this encounter [facility] 02-15-2022 Instructions Ellis Hernandez RPh - 02/15/2022 11:30 AM EDT Change Novolog to 11 units before meals without sliding scale - If low blood sugars continue, ok to decrease Novolog to 10 units Continue Ozempic 1 mg weekly, Tresiba 20 units once daily documented in this encounter [facility] 02-07-2022 Miscellaneous Notes Patient scheduled an appt with Dr. Cervantes/Shea. Rohini Hollis LPN No answer and voice mailbox is not set up He can do either - see ENT or PCP. If hearing loss is due to was ENT can address, if it is not due to wax then ENT doctor can check hearing, etc. Pt calls to report he is having decreased hearing in his right ear. Pt reports he usually gets wax build up in his ears and can use otc wax removal and that takes care of the problem. Pt reports he has been using was removal and everything comes out clear which is unusual for him. Pt reports he is still having decreased hearing. Pt is asking what the next step is. Showed he go to ENT or does he need to come in for an appt with pcp here first. Please review and advise. Giselle Alvares LPN documented in this encounter [facility] 02-01-2022 Miscellaneous Notes Pt picked up today. Pt notified. These are ready for pick and shovel man. rec'd 5 boxes of pen needles novoafine 32 G tip. Lot number is [id number] and exp date is 05/22/26. documented in this encounter [facility] 01-31-2022 Miscellaneous Notes Signed and faxed Fax received from [employer] requesting completion of CMN for approval or Luiza 2 sensors. Provided completed forms along with last office visit notes to PCP for review and signature. Once signed, please fax with attached cover sheet. Armando PrietoD, BCACP Primary Care Clinical Pharmacist [facility] documented in this encounter [facility] 01-16-2022 Miscellaneous Notes Patient picked up Tresiba, Novolog and Ozempic Patient Assistance supply from office today but pen needles not received. Called and spoke with hospital insurance representative at [facility] to check on status of pen needles. [employer] state they are in process and should be received by January 24. Called and notified patient. Ellis Hernandez PharmD, BCACP [facility] Care Clinical Pharmacist [facility] documented in this encounter [facility] 01-16-2022 History of Present illness Narrative Images from the original note were not included. Primary Care Pharmacy Visit REASON FOR CONSULT: DM GOALS: A1c < 8% CONSULTING PROVIDER: Dr. Zambrano Date of Consult: 04/07/2020 Jing Mckeon is a 66 year old male presenting for follow up visit in person. Patient consents to pharmacy collaborative practice agreement. Last seen by PCP, Dr. Son Zambrano MD on 11/02/21. At last pharmD appt on 12/05, Novolog dose was decreased. INTERIM HISTORY: Patient also picked up patient assistance medications while in office today Reports some elevated readings after meals but not with all meals Current DM Medications: Semaglutide (Ozempic) 1 mg once weekly on Sunday Insulin degludec (Tresiba) 20 units once daily QAM Insulin aspart (Novolog) 11 units TIDAC Current HTN Meds: Enalapril 20 mg twice daily Metoprolol succinate ER 25 mg once weekly Preventative Medications: On LARA/ARB: Yes On Statin: Yes GLYCEMIC CONTROL: ROS: Patient denies CP, SOB, LUGO, blurred vision, dizziness or lightheadedness Patient denies nausea, vomiting, diarrhea, abdominal pain Patient denies symptoms of hypoglycemia (sweating, anxiety, palpitations, hunger, and tremor) Patient denies symptoms of hyperglycemia (polyuria, polydipsia, polyphagia) Patient denies potential medication adverse effects MEDICATIONS: Pill bottles are not present Adherence: denies missed doses [facility]: [facility] Rx coverage: [facility] Affordability: brand meds costly; gets insulins and Ozempic through [employer] Diabetes supplies: [employer] System: original bottles ACTIVE PROBLEM LIST Essential Hypertension, Benign Pure Hypercholesterolemia Carpal Tunnel Syndrome Unspecified Glaucoma(365.9) Hemorrhage of Rectum and Anus Benign Neoplasm of Colon Hemorrhage of Gastrointestinal Tract, Unspecified Internal Hemorrhoids Without Mention of Complication 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, With Long-Term Current Use of Insulin ([facility]) History of Colonic Polyps Diverticulosis of Large Intestine Without Hemorrhage PAST MEDICAL HISTORY Diagnosis Date Benign neoplasm of colon BPH without obstruction/lower urinary tract symptoms 04/01/2012 Carpal tunnel syndrome Degeneration of lumbar or lumbosacral intervertebral disc 05/02/2008 Essential hypertension, benign Glaucoma Hemorrhage of rectum and anus Hyperplasia of prostate Pure hypercholesterolemia Gets labs done at [facility] for MIQUEL Siddiqui Type II or unspecified type diabetes mellitus without mention of complication, uncontrolled Continues to follow with MIQUEL Siddiqui, Y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--gets labs through [facility] Unspecified glaucoma(365.9) ALLERGIES No Known Allergies Current Outpatient Medications Medication Sig insulin aspart U-100 (NOVOLOG FLEXPEN U-100 INSULIN) 100 unit/mL (3 mL) Inject 10 Units subcutaneously three times daily before meals. Through [employer] Patient Assistance metoprolol succinate ER (TOPROL XL) 25 mg 24 hr tablet Take 1 tablet by mouth once daily. tamsulosin (FLOMAX) 0.4 mg Take 2 capsules by mouth daily at bedtime. enalapril (VASOTEC) 20 mg tablet Take 1 tablet by mouth twice daily. glucose 4 gram chewable tablet Take 4 tablets by mouth as needed. simvastatin (ZOCOR) 40 mg tablet Take 1 tablet by mouth daily at bedtime. flash glucose sensor (FREESTYLE LUIZA 2 SENSOR) kit Ust to check blood sugars once daily. Please apply free voucher for 1 sensor, pt to bring in semaglutide (OZEMPIC) 1 mg/dose (2 mg/1.5 mL) pen injector Inject 1 mg subcutaneously one time a week. Through [employer] Patient Assistance Insulin [place], Disposable, (BD ULTRA-FINE DONNIE PEN NEEDLE) 32 gauge x Use as directed with insulin injections three times daily insulin degludec (TRESIBA FLEXTOUCH U-100) 100 unit/mL (3 mL) injection pen Inject 20 Units subcutaneously every morning. Patient Assistance Medication albuterol HFA (VENTOLIN HFA) 90 mcg/actuation inhaler Inhale 2 Puffs as instructed every 4 hours as needed for Wheezing/Shortness of Breath. Insulin Syringe-Needle U-100 (BD INSULIN SYRINGE UF II) 0.5 mL 31 gauge x 5/16 syrg Use as directed with insulin injections three times daily timolol maleate (TIMOPTIC) 0.25 % ophthalmic solution Use 1 Drop in both eyes twice daily. Blood Sugar Diagnostic, Drum (ACCU-CHEK COMPACT TEST) Strp Testing 2-3 times daily lancets(FREESTYLE LANCETS) Use as directed. XALATAN 0.005 % EYE DROPS once daily both eyes COSOPT 2 %-0.5 % EYE DROPS twice daily both eyes (Patient not taking: ) ASPIRIN 81 MG TAB Take one (1) tablet daily . B COMPLEX CAP take one tablet daily MULTIVITAMIN TAB Take one(1) tablet daily. No current facility-administered medications for this visit. EXAM: Last 3 Encounter BP Readings: Date: BP: 11/02/2021 112/70[needs arm completely relaxed to get BP down[ 08/15/2021 128/73 07/01/2021 138/70 Wt: 78.5 kg (173 lb) BMI: 31.64 kg/(m^2) LABS: Lab Results Component Value Date HBA1C 7.7 10/26/2021 HBA1C 7.7 06/27/2021 HBA1C 9.3 11/01/2020 HBA1C 10.0 11/08/2019 CMP: Glucose 162 10/26/2021 BUN 18 10/26/2021 Creatinine 0.87 10/26/2021 NA 141 10/26/2021 K 4.4 10/26/2021 Chloride 106 10/26/2021 CO2 26 10/26/2021 Protein, Total 7.1 10/26/2021 Albumin 4.3 10/26/2021 Calcium 10.1 10/26/2021 Alk Phos Total 119 10/26/2021 Bilirubin, Total 0.3 10/26/2021 AST (SGOT) 23 10/26/2021 ALT (SGPT) 19 10/26/2021 EGFR: >60 mL/min/1.73m2 No results found for: B12 Lab Results Component Value Date CHOL 158 10/26/2021 CHOL 149 06/27/2021 LDL 73 10/26/2021 LDL 67 06/27/2021 HDL 65 10/26/2021 HDL 62 06/27/2021 TG 101 10/26/2021 TG 102 06/27/2021 The 10-year ASCVD risk score (Bekahbahman GRACE Jr., et al., 2013) is: 20.6% Values used to calculate the score: Age: 66 years Sex: Male Is Non- : No Diabetic: Yes Tobacco smoker: No Systolic Blood Pressure: 112 mmHg Is BP treated: Yes HDL Cholesterol: 65 mg/dL Total Cholesterol: 158 mg/dL Albumin/Creat Ratio (mg/g) Date Value 10/26/2021 31 (H) PHARMACOTHERAPY ASSESSMENT/PLAN: 1. Type 2 diabetes mellitus with microalbuminuria, with long-term current use of insulin ([facility]) - ICD9: 250.40, 791.0, V58.67, ICD10: E11.29, R80.9, Z79.4 A1c goal < 8%; at goal based on last A1c (7.7%); CGM shows BG readings are mostly at goal. With some elevated BG readings. Denies s/sx of hypoglycemia. Today, will add sliding scale with bolus insulin for improve BG control. ADJUST Novolog 11 units three time daily before meals PLUS add per sliding scale Add 0 units if Blood Sugar is between 70-150 Add 1 units if BS is between 151-200 Add 2 units if BS is between 201-250 Add 3 units if BS is between 251-300 Add 4 units if BS is between 301-350 Add 5 units if BS is between 351-400 BS > 400 , call your physician Continue Tresiba and Ozempic at same doses - INSULIN ASPART (U-100) 100 UNIT/ML (3 ML) SUBCUTANEOUS PEN Follow up: Patient is scheduled to see PCP team on 03/07/22. Patient to follow up with PharmD on 02/15/22. Patient verbalized understanding of instructions. Ellis Heranndez PharmD, BCACP Primary Care Clinical Pharmacist [facility] The majority of the pharmacy visit (> 50%) was spent counseling and/or coordinating care for the patient. [Face to Face] time was 30 minutes. documented in this encounter [facility] 01-16-2022 Instructions Ellis Hernandez RPh - 01/16/2022 1:00 PM EDT ADJUST Novolog 11 units three time daily before meals PLUS add per sliding scale Add 0 units if Blood Sugar is between 70-150 Add 1 units if BS is between 151-200 Add 2 units if BS is between 201-250 Add 3 units if BS is between 251-300 Add 4 units if BS is between 301-350 Add 5 units if BS is between 351-400 BS > 400 , call your physician Continue Tresiba and Ozempic at same doses documented in this encounter [facility] 01-10-2022 Miscellaneous Notes Tc to patient - mailbox full - will try again later. Vernon Pineda Ma Received from [employer] Patient Assistance Program, Tresiba 100U/ML injection, solution # 2 boxes . Lot# [id number], Expiration date 03/22/2024 Ozempic 4mg/3ml, injection, solution# 4 boxes. Lot# [id number], Expiration date 10/20/2024 NovoLog FlexPen 100units/mL # 3 boxes. Lot# [id number], Expiration date 10/21/2023 Patient notified to pick and shovel man medication. Physician Initial: lt Medications received and verified on the date indicated above documented in this encounter [facility] 01-05-2022 Miscellaneous Notes Form placed in PharmD file cabinet. pcp signed forms and all faxed to number on the form. Patient is enrolled in [employer] patient assistance for insulins and Ozempic. With most recent program renewal, insulin pen needles were accidentally omitted from order form. Sending order form and letter to program to request refill of pen needles. Will provide letter and order for to PCP for review/signature. Once signed, please fax with attached cover sheet to [employer]. Thanks! Ellis Hernandez, Chantelle, BCACP Primary Care Clinical Pharmacist [place] [facility] documented in this encounter [facility] 12-05-2021 History of Present illness Narrative Images from the original note were not included. Primary Care Pharmacy Visit REASON FOR CONSULT: DM GOALS: A1c < 8% CONSULTING PROVIDER: Dr. Zambrano Date of Consult: 04/07/2020 Jing Mckeon is a 66 year old male presenting for follow up visit in person. Patient consents to pharmacy collaborative practice agreement. Last seen by PCP, Dr. Son Zambrano MD on 11/02/21. At last PCP appt, no medication changes made. At last PharmD visit on 10/17, patient was instructed to increase Ozempic to prescribed dose. INTERIM HISTORY: Reports readings have been better (see CGM report below) Occasional low BG Has trouble keeping on CGM sensor, reports with warmer weather has had sensor fall off too soon Current DM Medications: Semaglutide (Ozempic) 1 mg once weekly on Sunday Insulin degludec (Tresiba) 20 units once daily QAM Insulin aspart (Novolog) 11 units TIDAC Current HTN Meds: Enalapril 20 mg twice daily Metoprolol succinate ER 25 mg once weekly Preventative Medications: On LARA/ARB: Yes On Statin: Yes GLYCEMIC CONTROL: CGM Report Summary of Professional CGM Findings: 1- CGM recording is adequate for interpretation. 2- Average glucose is 168 mg/dL. 3- Total frequency of hypoglycemia: 1% 4- Nocturnal hypoglycemia was noted. 5- Hyperglycemic episodes: 39% 6- Time in target range (70-180 mg/dL): 60% MEDICATIONS: Pill bottles are not present Adherence: denies missed doses [facility]acy: [facility] Rx coverage: [facility] Affordability: brand meds costly; gets insulins and Ozempic through [employer] PAP Diabetes supplies: [employer] System: original bottles ACTIVE PROBLEM LIST Essential Hypertension, Benign Pure Hypercholesterolemia Carpal Tunnel Syndrome Unspecified Glaucoma(365.9) Hemorrhage of Rectum and Anus Benign Neoplasm of Colon Hemorrhage of Gastrointestinal Tract, Unspecified Internal Hemorrhoids Without Mention of Complication 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, With Long-Term Current Use of Insulin ([facility]) History of Colonic Polyps Diverticulosis of Large Intestine Without Hemorrhage PAST MEDICAL HISTORY Diagnosis Date Benign neoplasm of colon BPH without obstruction/lower urinary tract symptoms 04/01/2012 Carpal tunnel syndrome Degeneration of lumbar or lumbosacral intervertebral disc 05/02/2008 Essential hypertension, benign Glaucoma Hemorrhage of rectum and anus Hyperplasia of prostate Pure hypercholesterolemia Gets labs done at [facility] for MIQUEL Siddiqui Type II or unspecified type diabetes mellitus without mention of complication, uncontrolled Continues to follow with MIQUEL Siddiqui, Y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--gets labs through [facility] Unspecified glaucoma(365.9) ALLERGIES No Known Allergies Current Outpatient Medications Medication Sig metoprolol succinate ER (TOPROL XL) 25 mg 24 hr tablet Take 1 tablet by mouth once daily. tamsulosin (FLOMAX) 0.4 mg Take 2 capsules by mouth daily at bedtime. enalapril (VASOTEC) 20 mg tablet Take 1 tablet by mouth twice daily. glucose 4 gram chewable tablet Take 4 tablets by mouth as needed. simvastatin (ZOCOR) 40 mg tablet Take 1 tablet by mouth daily at bedtime. flash glucose sensor (FREESTYLE LUIZA 2 SENSOR) kit Ust to check blood sugars once daily. Please apply free voucher for 1 sensor, pt to bring in semaglutide (OZEMPIC) 1 mg/dose (2 mg/1.5 mL) pen injector Inject 1 mg subcutaneously one time a week. Through [employer] Patient Assistance insulin aspart U-100 (NOVOLOG FLEXPEN U-100 INSULIN) 100 unit/mL (3 mL) Inject 11 Units subcutaneously three times daily before meals. Through [employer] Patient Assistance Insulin [place], Disposable, (BD ULTRA-FINE DONNIE PEN NEEDLE) 32 gauge x 5/32 Use as directed with insulin injections three times daily insulin degludec (TRESIBA FLEXTOUCH U-100) 100 unit/mL (3 mL) injection pen Inject 20 Units subcutaneously every morning. Patient Assistance Medication albuterol HFA (VENTOLIN HFA) 90 mcg/actuation inhaler Inhale 2 Puffs as instructed every 4 hours as needed for Wheezing/Shortness of Breath. Insulin Syringe-Needle U-100 (BD INSULIN SYRINGE UF II) 0.5 mL 31 gauge x 5/16 syrg Use as directed with insulin injections three times daily timolol maleate (TIMOPTIC) 0.25 % ophthalmic solution Use 1 Drop in both eyes twice daily. Blood Sugar Diagnostic, Drum (ACCU-CHEK COMPACT TEST) Strp Testing 2-3 times daily lancets(FREESTYLE LANCETS) Use as directed. XALATAN 0.005 % EYE DROPS once daily both eyes COSOPT 2 %-0.5 % EYE DROPS twice daily both eyes (Patient not taking: ) ASPIRIN 81 MG TAB Take one (1) tablet daily . B COMPLEX CAP take one tablet daily MULTIVITAMIN TAB Take one(1) tablet daily. No current facility-administered medications for this visit. EXAM: Last 3 Encounter BP Readings: Date: BP: 11/02/2021 112/70[needs arm completely relaxed to get BP down[ 08/15/2021 128/73 07/01/2021 138/70 Wt: 78.5 kg (173 lb) BMI: 31.64 kg/(m^2) LABS: Lab Results Component Value Date HBA1C 7.7 10/26/2021 HBA1C 7.7 06/27/2021 HBA1C 9.3 11/01/2020 HBA1C 10.0 11/08/2019 CMP: Glucose 162 10/26/2021 BUN 18 10/26/2021 Creatinine 0.87 10/26/2021 NA 141 10/26/2021 K 4.4 10/26/2021 Chloride 106 10/26/2021 CO2 26 10/26/2021 Protein, Total 7.1 10/26/2021 Albumin 4.3 10/26/2021 Calcium 10.1 10/26/2021 Alk Phos Total 119 10/26/2021 Bilirubin, Total 0.3 10/26/2021 AST (SGOT) 23 10/26/2021 ALT (SGPT) 19 10/26/2021 EGFR: >60 mL/min/1.73m2 No results found for: B12 Lab Results Component Value Date CHOL 158 10/26/2021 CHOL 149 06/27/2021 LDL 73 10/26/2021 LDL 67 06/27/2021 HDL 65 10/26/2021 HDL 62 06/27/2021 TG 101 10/26/2021 TG 102 06/27/2021 The 10-year ASCVD risk score (Bekah DC Jr., et al., 2013) is: 20.6% Values used to calculate the score: Age: 66 years Sex: Male Is Non- : No Diabetic: Yes Tobacco smoker: No Systolic Blood Pressure: 112 mmHg Is BP treated: Yes HDL Cholesterol: 65 mg/dL Total Cholesterol: 158 mg/dL Albumin/Creat Ratio (mg/g) Date Value 10/26/2021 31 (H) PHARMACOTHERAPY ASSESSMENT/PLAN: 1. Type 2 diabetes mellitus with microalbuminuria, with long-term current use of insulin (HCC) - ICD9: 250.40, 791.0, V58.67, ICD10: E11.29, R80.9, Z79.4 A1c goal < 8%; at goal based on last A1c (7.7%) CGM shows BG readings are mostly at goal. Reports s/sx of hypoglycemia. Today, will decrease bolus insulin to prevent risk of hypoglycemia. Renal function and LFTs appropriate for continued use Decrease Novolog to 10 units three times daily before meals Continue Tresiba 20 units once daily and Ozempic 1 mg weekly Discusses ways to keep Luiza sensor from falling off too soon: - [place] - sticky wipes to help adhere - Tegaderm - clear barrier to prevent getting caught - INSULIN ASPART (U-100) 100 UNIT/ML (3 ML) SUBCUTANEOUS PEN Follow up: Patient is scheduled to see PCP team on 03/07/22. Patient to follow up with PharmD on 01/16/22. Patient verbalized understanding of instructions. Ellis Hernandez PharmD, BCACP Primary Care Clinical Pharmacist [facility] The majority of the pharmacy visit (> 50%) was spent counseling and/or coordinating care for the patient. [Face to Face] time was 22 minutes. documented in this encounter [facility] 12-05-2021 Instructions Ellis Hernandez RPh - 12/05/2021 11:00 AM EDT Decrease Novolog to 10 units three times daily before meals Continue Tresiba 20 units once daily and Ozempic 1 mg weekly Ways to keep Luiza sensor from falling off too soon: - [place] - sticky wipes to help adhere - Tegaderm - clear barrier to prevent getting caught documented in this encounter [facility] 11-02-2021 History of Present illness Narrative This note was created using [employer]. Subjective Jing Mckeon is a 66 year old male. Patient presents with: Follow Up SUBJECTIVE: Jing Mckeon is a 66 year old year old gentleman here today for 4 month follow up appointment for review of medical conditions. States that wanted a spot on back checked. He does not feel anything bothering him back there. Feeling well otherwise. Doing fine from DM and hypertension standpoint. PAST MEDICAL HISTORY Diagnosis Date Benign neoplasm of colon BPH without obstruction/lower urinary tract symptoms 04/01/2012 Carpal tunnel syndrome Degeneration of lumbar or lumbosacral intervertebral disc 05/02/2008 Essential hypertension, benign Glaucoma Hemorrhage of rectum and anus Hyperplasia of prostate Pure hypercholesterolemia Gets labs done at [facility] for MIQUEL Siddiqui Type II or unspecified type diabetes mellitus without mention of complication, uncontrolled Continues to follow with MIQUEL Siddiqui CNP/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--gets labs through [facility] Unspecified glaucoma(365.9) Current Outpatient Medications Medication Sig metoprolol succinate ER (TOPROL XL) 25 mg 24 hr tablet Take 1 tablet by mouth once daily. tamsulosin (FLOMAX) 0.4 mg Take 2 capsules by mouth daily at bedtime. enalapril (VASOTEC) 20 mg tablet Take 1 tablet by mouth twice daily. glucose 4 gram chewable tablet Take 4 tablets by mouth as needed. simvastatin (ZOCOR) 40 mg tablet Take 1 tablet by mouth daily at bedtime. flash glucose sensor (FREESTYLE LUIZA 2 SENSOR) kit Ust to check blood sugars once daily. Please apply free voucher for 1 sensor, pt to bring in semaglutide (OZEMPIC) 1 mg/dose (2 mg/1.5 mL) pen injector Inject 1 mg subcutaneously one time a week. Through [employer] Patient Assistance insulin aspart U-100 (NOVOLOG FLEXPEN U-100 INSULIN) 100 unit/mL (3 mL) Inject 11 Units subcutaneously three times daily before meals. Through [employer] Patient Assistance Insulin [place], Disposable, (BD ULTRA-FINE DONNIE PEN NEEDLE) 32 gauge x 5/32 Use as directed with insulin injections three times daily insulin degludec (TRESIBA FLEXTOUCH U-100) 100 unit/mL (3 mL) injection pen Inject 20 Units subcutaneously every morning. Patient Assistance Medication albuterol HFA (VENTOLIN HFA) 90 mcg/actuation inhaler Inhale 2 Puffs as instructed every 4 hours as needed for Wheezing/Shortness of Breath. Insulin Syringe-Needle U-100 (BD INSULIN SYRINGE UF II) 0.5 mL 31 gauge x 12/05 syrg Use as directed with insulin injections three times daily timolol maleate (TIMOPTIC) 0.25 % ophthalmic solution Use 1 Drop in both eyes twice daily. Blood Sugar Diagnostic, Drum (ACCU-CHEK COMPACT TEST) Strp Testing 2-3 times daily lancets(FREESTYLE LANCETS) Use as directed. XALATAN 0.005 % EYE DROPS once daily both eyes ASPIRIN 81 MG TAB Take one (1) tablet daily . B COMPLEX CAP take one tablet daily MULTIVITAMIN TAB Take one(1) tablet daily. COSOPT 2 %-0.5 % EYE DROPS twice daily both eyes (Patient not taking: ) No current facility-administered medications for this visit. Review of Systems Objective BP 136/84 Pulse 73 Wt 78.5 kg (173 lb) SpO2 97% BMI 31.64 kg/m Last 5 Encounter Wt Readings: Date: Wt: 11/02/2021 78.5 kg (173 lb) 07/01/2021 78.9 kg (174 lb) 02/18/2021 76.6 kg (168 lb 12.8 oz) 11/01/2020 81.5 kg (179 lb 9.6 oz) 04/07/2020 82.1 kg (181 lb) No waist measurement recorded Estimated body mass index is 31.64 kg/m as calculated from the following: Height as of 05/23/17: 157.5 cm (5' 2). Weight as of this encounter: 78.5 kg (173 lb). Last 5 Encounter BP Readings: Date: BP: 11/02/2021 136/84 08/15/2021 128/73 07/01/2021 138/70 05/16/2021 120/70 02/18/2021 126/84 11/02/21 1054 11/02/21 1138 BP: 136/84 112/70 Pulse: 73 SpO2: 97% Weight: 78.5 kg (173 lb) Physical Exam Vitals reviewed. Constitutional: Appearance: Normal appearance. Eyes: Conjunctiva/sclera: Conjunctivae normal. Cardiovascular: Rate and Rhythm: Normal rate and regular rhythm. Heart sounds: Normal heart sounds. Pulmonary: Effort: Pulmonary effort is normal. Breath sounds: Normal breath sounds. Skin: General: Skin is warm and dry. Comments: On upper back in midline SK about 1 cm diameter--see picture under images Neurological: General: No focal deficit present. Mental Status: He is alert and oriented to person, place, and time. Psychiatric: Mood and Affect: Mood normal. Behavior: Behavior normal. Thought Content: Thought content normal. Judgment: Judgment normal. Component Latest Ref Rng & Units 11/08/2019 11/01/2020 06/27/2021 10/26/2021 WBC 3.70 - 11.00 k/uL 6.72 8.20 8.72 RBC 4.20 - 6.00 m/uL 5.24 4.98 4.94 Hemoglobin 13.0 - 17.0 g/dL 15.7 15.2 15.1 Hematocrit 39.0 - 51.0 % 46.6 45.2 45.2 MCV 80.0 - 100.0 fL 88.9 90.8 91.5 MCH 26.0 - 34.0 pg 30.0 30.5 30.6 MCHC 30.5 - 36.0 g/dL 33.7 33.6 33.4 RDW-CV 11.5 - 15.0 % 12.7 12.7 13.1 Platelet Count 150 - 400 k/uL 191 236 255 MPV 9.0 - 12.7 fL 12.7 12.6 11.9 Neut% % 48.9 Abs Neut (ANC) 1.45 - 7.50 k/uL 3.99 Lymph% % 37.2 Abs Lymph 1.00 - 4.00 k/uL 3.05 Lasalle% % 8.2 Abs [place]alle <0.87 k/uL 0.67 Eosin% % 4.6 Abs Eosin <0.46 k/uL 0.38 Baso% % 1.1 Abs Baso <0.11 k/uL 0.09 Nucleated Reds 0 /100 WBC 0.0 Absolute nRBC <0.01 k/uL <0.01 <0.01 <0.01 Diff Type Auto Diff Protein, Total 6.3 - 8.0 g/dL 6.8 7.0 7.1 Albumin 3.9 - 4.9 g/dL 3.9 4.3 4.3 Calcium 8.5 - 10.2 mg/dL 9.8 9.4 9.9 10.1 Bilirubin, Total 0.2 - 1.3 mg/dL 0.3 0.3 0.3 Alkaline Phosphatase 38 - 113 U/L 128 (H) 121 (H) 119 (H) AST 14 - 40 U/L 32 20 23 Glucose 74 - 99 mg/dL 172 (H) 265 (H) 243 (H) 162 (H) BUN 9 - 24 mg/dL 14 14 14 18 Creatinine 0.73 - 1.22 mg/dL 0.81 0.85 0.87 0.87 Sodium 136 - 144 mmol/L 140 138 142 141 Potassium 3.7 - 5.1 mmol/L 4.2 4.4 4.3 4.4 Chloride 97 - 105 mmol/L 104 104 105 106 (H) CO2 22 - 30 mmol/L 25 25 27 26 Anion Gap 9 - 18 mmol/L 11 9 10 9 ALT 10 - 54 U/L 22 15 19 eGFR- >60 >60 >60 eGFR-All Other Races . >60 >60 >60 eGFR >=60 mL/min/1.73m 94 Cholesterol, Total <200 mg/dL 147 149 158 Triglyceride <150 mg/dL 162 (H) 102 101 HDL Cholesterol >39 mg/dL 49 62 65 LDL Cholesterol <100 mg/dL 66 67 73 Non HDL Cholesterol <130 mg/dL 98 87 93 Fasting Time hrs 12 9 12 VLDL Cholesterol <30 mg/dL 32 (H) 20 20 TC:HDL Ratio <5.10 3.00 2.40 2.43 LDL:HDL Ratio <2.54 1.35 1.08 1.12 Creatinine, Ur Random (UCRR) 20.0 - 300.0 mg/dL 127.7 179.7 232.6 Albumin, Urine Random mg/L 87.2 1,019.2 72.6 Albumin/Creat Ratio <30 mg/g 68 (H) 567 (H) 31 (H) Hemoglobin A1C 4.3 - 5.6 % 10.0 (H) 9.3 (H) 7.7 (H) 7.7 (H) Estimated Average Glucose mg/dL 240 220 174 174 Hep C Antibody IA Negative Negative Assessment and Plan ASSESSMENT/PLAN: 1. Type 2 diabetes mellitus with microalbuminuria, with long-term current use of insulin (HCC) - ICD9: 250.40, 791.0, V58.67, ICD10: E11.29, R80.9, Z79.4 (primary diagnosis) Controlled. - Continue current medications - Encouraged regular aerobic exercise and weight loss - HGB A1C - COMP METABOLIC PANEL 2. Essential hypertension, benign - ICD9: 401.1, ICD10: I10 - good control - Continue current medication(s) - Recommended regular aerobic exercise. - Goal of BP <130/80 - COMP METABOLIC PANEL 3. Skin lesion of back - ICD9: 709.9, ICD10: L98.9 Looks like a benign SK. Will monitor for changes of concern and refer to dermatology as indicated. Son Zambrano MD documented in this encounter [facility] 10-13-2021 Miscellaneous Notes This is all in the fridge on the second floor left side. Called pt and no answer and mail box is full. He has an in office appt with pharmacy 10/17/21. He can pick it up then. Current doses of medications are correct on med list as below. Semaglutide (Ozempic) 1 mg once weekly Insulin degludec (Tresiba) 20 units once daily Insulin aspart (Novolog) 11 units three times daily before meals Thanks! Armando PrietoD, BCACP Primary Care Clinical Pharmacist [facility] Rec'd 3 meds from [facility]. 1. tresiba U100 lot number is [id number] exp date is 11/20/2023 number 2 boxes. 2. ozempic 4mg/3lm lot number [id number] exp date is 07/22/2024. Number 2 boxes rec'd 3. novolog flex pen 100 units/ml lot number is [id number] exp date is 05/22/2023 number 3 boxes rec'd. rec'd Please review med list for these 3 meds directions all correct? documented in this encounter [facility] 11-01-2020 History of Present illness Narrative Radiology Service Progress Note PATIENT NAME: Jing Mckeon DATE OF SERVICE: November 01, 2020 TIME: 12:51 PM PATIENT IDENTITY VERIFICATION COMPLETED USING TWO (2) IDENTIFIERS: Name and Date of confirmed by patient verbally. FALL SCREENING: Has the patient had 2 falls in the last year or 1 fall with injury or currently using an Ambulatory Assistive Device (Walker, Cane, Wheelchair, Crutches, etc.)? No PATIENT GENDER DATA: Male PATIENT RELEVANT IMPLANT DATA REVIEWED: Yes RADIOLOGY DEPARTMENT: General X-ray: Exam(s) Completed: Chest X-Ray PERIPHERAL IV DATA: Not applicable SIGNED BY: RT Haseeb November 01, 2020 12:51 PM documented in this encounter [facility] 11-17-2015 History of Past i llness Narrative Problem Noted Date Resolved Date Diabetes mellitus 11/17/2015 Overview: * Type (07/23/1989): dx type 2 diabetes. (): C-peptide 1.8 ng/ml * Control hx (): HbA1c = 14.8% (): NlW0a=00.7% (): NuP0o=3.9% (): QpP8g=7.2% (): MlB7j=0.6% (): UyP2t=8.1% (): CiN8v=7.1% (): CaE2n=7.7% (09/28/09): ApG9d=2.4% (04/23/10): GoV1u=8.4% (09/26/10): DiX3l=9.5% (01/14/11): LpH9o=1.8% (04/15/11): OjP6k=9.2% * Eye hx (10/2005 date approx): exam Dr. Calvin. No DM changes per pt, f/u q6mo because of glaucoma, yearly for DM. (): my exam single microaneurysm on right (): no DM changes per pt, exam Dr. Calvin (): exam Dr. Calvin. Moderate non proliferative retinopathy bilat, RTC in 1 yr (): exam Dr. Calvin, in need of laser intervention in right eye (): focal laser on on right eye, Dr. Chan? (03/04/10): mild [employer] PASTER bilat, RTC 1 yr, exam Dr. Calvin (12/21/10): exam Dr. Evans, mild [employer] PASTER stable, RTC 1 yr * Neuro hx (04/19/11): no resting acral dysesthesias. Gets sweaty > shaky with low sugars. * Renal hx (): urine albumin=18 mcg/mg creat (): urine albumin=6 mcg/mg creat (): urine albumin=16 mcg/mg creat (09/28/09): urine albunmin=16 mcg/mg creat (01/14/11): urine albumin=25 mcg/mg creat * Vascular hx (): zogz=261, TG=81, HDL=54, jNEZ=020 (): idtw=340, TG=45, HDL=51, dLDL=66 (): ltxg=747, TG=46, HDL=50, dLDL=76 (04/23/10): dwjz=356, TG=45, HDL=65, cLDL=62, VP=183, ALT=13 (10/5/10): no hx [place], stroke, claudication. documented as of this encounter (statuses as of 10/18/2021) [facility] History of Past illness Narrative* Problem Noted Date Resolved Date Diabetes mellitus 11/17/2015 Overview: * Type (07/23/1989): dx type 2 diabetes. (): C-peptide 1.8 ng/ml * Control hx (): HbA1c = 14.8% (): MyB9l=02.7% (): LrG9j=1.9% (): HuX7e=6.2% (): FgP3e=6.6% (): FgK5g=7.1% (): EvS9z=7.1% (): OtS1k=8.7% (09/28/09): UxJ7t=6.4% (04/23/10): KyQ7u=5.4% (09/26/10): LaS0i=5.5% (01/14/11): BqG1w=9.8% (04/15/11): NoR8t=1.2% * Eye hx (10/2005 date approx): exam Dr. Calvin. No DM changes per pt, f/u q6mo because of glaucoma, yearly for DM. (): my exam single microaneurysm on right (): no DM changes per pt, exam Dr. Calvin (): exam Dr. Calvin. Moderate non proliferative retinopathy bilat, RTC in 1 yr (): exam Dr. Calvin, in need of laser intervention in right eye (): focal laser on on right eye, Dr. Chan? (03/04/10): mild [employer] PA[employer] bilat, RTC 1 yr, exam Dr. Calvin (12/21/10): exam Dr. Evans, mild [employer] PA[employer] stable, RTC 1 yr * Neuro hx (04/19/11): no resting acral dysesthesias. Gets sweaty > shaky with low sugars. * Renal hx (): urine albumin=18 mcg/mg creat (): urine albumin=6 mcg/mg creat (): urine albumin=16 mcg/mg creat (09/28/09): urine albunmin=16 mcg/mg creat (01/14/11): urine albumin=25 mcg/mg creat * Vascular hx (): kgbb=338, TG=81, HDL=54, hHLE=748 (): qfcw=721, TG=45, HDL=51, dLDL=66 (): gqkw=819, TG=46, HDL=50, dLDL=76 (04/23/10): qwzp=835, TG=45, HDL=65, cLDL=62, IG=912, ALT=13 (04/26/10): no hx NJ, stroke, claudication. documented as of this encounter (statuses as of 12/07/2021) [facility] History of Past illness Narrative* Problem Noted Date Resolved Date Diabetes mellitus 11/17/2015 Overview: * Type (07/23/1989): dx type 2 diabetes. (): C-peptide 1.8 ng/ml * Control hx (): HbA1c = 14.8% (): YgX3r=12.7% (): BwZ0n=1.9% (): HtC2p=1.2% (): McD4v=2.6% (): NpD1w=7.1% (): EkN2i=4.1% (): AkD6t=4.7% (09/28/09): NdB0e=0.4% (04/23/10): FnB6g=1.4% (09/26/10): ZjY4x=4.5% (01/14/11): VcM6h=5.8% (04/15/11): RlX7r=4.2% * Eye hx (10/2005 date approx): exam Dr. Calvin. No DM changes per pt, f/u q6mo because of glaucoma, yearly for DM. (): my exam single microaneurysm on right (): no DM changes per pt, exam Dr. Calvin (): exam Dr. Calvin. Moderate non proliferative retinopathy bilat, RTC in 1 yr (): exam Dr. Calvin, in need of laser intervention in right eye (): focal laser on on right eye, Dr. Chan? (03/04/10): mild [employer] bilat, RTC 1 yr, exam Dr. Calvin (12/21/10): exam Dr. Evans, mild [employer] PA[employer] stable, RTC 1 yr * Neuro hx (04/19/11): no resting acral dysesthesias. Gets sweaty > shaky with low sugars. * Renal hx (): urine albumin=18 mcg/mg creat (): urine albumin=6 mcg/mg creat (): urine albumin=16 mcg/mg creat (09/28/09): urine albunmin=16 mcg/mg creat (01/14/11): urine albumin=25 mcg/mg creat * Vascular hx (): iagw=086, TG=81, HDL=54, mJZW=582 (): dyvt=014, TG=45, HDL=51, dLDL=66 (): vxok=146, TG=46, HDL=50, dLDL=76 (04/23/10): vexn=595, TG=45, HDL=65, cLDL=62, KP=580, ALT=13 (04/26/10): no hx NJ, stroke, claudication. documented as of this encounter (statuses as of 12/21/2021) [facility] History of Past illness Narrative* Problem Noted Date Resolved Date Diabetes mellitus 11/17/2015 Overview: * Type (07/23/1989): dx type 2 diabetes. (): C-peptide 1.8 ng/ml * Control hx (): HbA1c = 14.8% (): CsL5x=52.7% (): CeZ9z=8.9% (): DrA5a=0.2% (): AxC4j=2.6% (): DlQ8o=3.1% (): MpU1p=7.1% (): MrW6i=8.7% (09/28/09): MsM3a=6.4% (04/23/10): PzY2o=2.4% (09/26/10): RcQ6b=7.5% (01/14/11): OvA4c=1.8% (04/15/11): BdV8z=1.2% * Eye hx (10/2005 date approx): exam Dr. Calvin. No DM changes per pt, f/u q6mo because of glaucoma, yearly for DM. (): my exam single microaneurysm on right (): no DM changes per pt, exam Dr. Calvin (): exam Dr. Calvin. Moderate non proliferative retinopathy bilat, RTC in 1 yr (): exam Dr. Calvin, in need of laser intervention in right eye (): focal laser on on right eye, Dr. Chan? (03/04/10): mild [employer] bilat, RTC 1 yr, exam Dr. Calvin (12/21/10): exam Dr. Evans, mild [employer] stable, RTC 1 yr * Neuro hx (04/19/11): no resting acral dysesthesias. Gets sweaty > shaky with low sugars. * Renal hx (): urine albumin=18 mcg/mg creat (): urine albumin=6 mcg/mg creat (): urine albumin=16 mcg/mg creat (09/28/09): urine albunmin=16 mcg/mg creat (01/14/11): urine albumin=25 mcg/mg creat * Vascular hx (): ybqh=338, TG=81, HDL=54, nEKN=271 (): klrf=820, TG=45, HDL=51, dLDL=66 (): ikou=923, TG=46, HDL=50, dLDL=76 (04/23/10): rfow=447, TG=45, HDL=65, cLDL=62, MG=176, ALT=13 (04/26/10): no hx NJ, stroke, claudication. documented as of this encounter (statuses as of 01/05/2022) [facility] History of Past illness Narrative* Problem Noted Date Resolved Date Diabetes mellitus 11/17/2015 Overview: * Type (07/23/1989): dx type 2 diabetes. (): C-peptide 1.8 ng/ml * Control hx (): HbA1c = 14.8% (): NfP1i=08.7% (): KwO8k=0.9% (): PlB9b=7.2% (): DpD3i=4.6% (): ZbM6m=4.1% (): JtF0o=9.1% (): KvV5f=4.7% (09/28/09): MgK4v=5.4% (04/23/10): NzK4f=7.4% (09/26/10): PhO7q=5.5% (01/14/11): IwB1q=6.8% (04/15/11): MgD3d=3.2% * Eye hx (10/2005 date approx): exam Dr. Calvin. No DM changes per pt, f/u q6mo because of glaucoma, yearly for DM. (): my exam single microaneurysm on right (): no DM changes per pt, exam Dr. Calvin (): exam Dr. Calvin. Moderate non proliferative retinopathy bilat, RTC in 1 yr (): exam Dr. Calvin, in need of laser intervention in right eye (): focal laser on on right eye, Dr. Chan? (03/04/10): mild [employer] PA[employer] bilat, RTC 1 yr, exam Dr. Calvin (12/21/10): exam Dr. Evans, mild [employer] PA[employer] stable, RTC 1 yr * Neuro hx (04/19/11): no resting acral dysesthesias. Gets sweaty > shaky with low sugars. * Renal hx (): urine albumin=18 mcg/mg creat (): urine albumin=6 mcg/mg creat (): urine albumin=16 mcg/mg creat (09/28/09): urine albunmin=16 mcg/mg creat (01/14/11): urine albumin=25 mcg/mg creat * Vascular hx (): vfqt=046, TG=81, HDL=54, gHSB=868 (): tgtg=319, TG=45, HDL=51, dLDL=66 (): ytxx=023, TG=46, HDL=50, dLDL=76 (04/23/10): lulw=067, TG=45, HDL=65, cLDL=62, KA=794, ALT=13 (04/26/10): no hx NJ, stroke, claudication. documented as of this encounter (statuses as of 01/13/2022) [facility] History of Past illness Narrative* Problem Noted Date Resolved Date Diabetes mellitus 11/17/2015 Overview: * Type (07/23/1989): dx type 2 diabetes. (): C-peptide 1.8 ng/ml * Control hx (): HbA1c = 14.8% (): WkV7m=56.7% (): UvW4l=9.9% (): PlP4o=7.2% (): VvL3q=6.6% (): UkK8k=1.1% (): SyT7f=7.1% (): PkT9o=7.7% (09/28/09): QxS4c=1.4% (04/23/10): RgJ9j=6.4% (09/26/10): EbO1y=2.5% (01/14/11): CmJ3u=7.8% (04/15/11): PcG3j=8.2% * Eye hx (10/2005 date approx): exam Dr. Calvin. No DM changes per pt, f/u q6mo because of glaucoma, yearly for DM. (): my exam single microaneurysm on right (): no DM changes per pt, exam Dr. Calvin (): exam Dr. Calvin. Moderate non proliferative retinopathy bilat, RTC in 1 yr (): exam Dr. Calvin, in need of laser intervention in right eye (): focal laser on on right eye, Dr. Chan? (03/04/10): mild [employer] PA[employer] bilat, RTC 1 yr, exam Dr. Calvin (12/21/10): exam Dr. Evans, mild [employer] PA[employer] stable, RTC 1 yr * Neuro hx (04/19/11): no resting acral dysesthesias. Gets sweaty > shaky with low sugars. * Renal hx (): urine albumin=18 mcg/mg creat (): urine albumin=6 mcg/mg creat (): urine albumin=16 mcg/mg creat (09/28/09): urine albunmin=16 mcg/mg creat (01/14/11): urine albumin=25 mcg/mg creat * Vascular hx (): brug=610, TG=81, HDL=54, yKHO=450 (): ofom=017, TG=45, HDL=51, dLDL=66 (): lqes=900, TG=46, HDL=50, dLDL=76 (04/23/10): onea=620, TG=45, HDL=65, cLDL=62, DK=409, ALT=13 (04/26/10): no hx [place], stroke, claudication. documented as of this encounter (statuses as of 01/16/2022) [facility] History of Past illness Narrative* Problem Noted Date Resolved Date Diabetes mellitus 11/17/2015 Overview: * Type (07/23/1989): dx type 2 diabetes. (): C-peptide 1.8 ng/ml * Control hx (): HbA1c = 14.8% (): HzK3q=03.7% (): EwX4c=0.9% (): UdB7o=9.2% (): PuV7e=8.6% (): CoK3a=9.1% (): UkO7e=9.1% (): FdF6o=9.7% (09/28/09): LcX1d=6.4% (04/23/10): YrD0b=5.4% (09/26/10): FzC1x=4.5% (01/14/11): RqJ5l=5.8% (04/15/11): AuI9u=0.2% * Eye hx (10/2005 date approx): exam Dr. Calvin. No DM changes per pt, f/u q6mo because of glaucoma, yearly for DM. (): my exam single microaneurysm on right (): no DM changes per pt, exam Dr. Calvin (): exam Dr. Calvin. Moderate non proliferative retinopathy bilat, RTC in 1 yr (): exam Dr. Calvin, in need of laser intervention in right eye (): focal laser on on right eye, Dr. Chan? (03/04/10): mild [employer] PA[employer] bilat, RTC 1 yr, exam Dr. Calvin (12/21/10): exam Dr. Evans, mild [employer] PA[employer] stable, RTC 1 yr * Neuro hx (04/19/11): no resting acral dysesthesias. Gets sweaty > shaky with low sugars. * Renal hx (): urine albumin=18 mcg/mg creat (): urine albumin=6 mcg/mg creat (): urine albumin=16 mcg/mg creat (09/28/09): urine albunmin=16 mcg/mg creat (01/14/11): urine albumin=25 mcg/mg creat * Vascular hx (): zwpp=215, TG=81, HDL=54, lKOD=625 (): qovu=145, TG=45, HDL=51, dLDL=66 (): bgie=128, TG=46, HDL=50, dLDL=76 (04/23/10): fyjw=613, TG=45, HDL=65, cLDL=62, HU=549, ALT=13 (04/26/10): no hx [place], stroke, claudication. documented as of this encounter (statuses as of 01/25/2022) [facility]04-27-2016 History of Past illness Narrative* Problem Noted Date Resolved Date Diabetes mellitus 11/17/2015 Overview: * Type (07/23/1989): dx type 2 diabetes. (): C-peptide 1.8 ng/ml * Control hx (): HbA1c = 14.8% (): ElZ8l=10.7% (): CbF8n=5.9% (): YeJ4q=4.2% (): ZyT6m=4.6% (): SmF0p=5.1% (): YaS2o=8.1% (): ZiQ9h=8.7% (09/28/09): IuO3p=3.4% (04/23/10): HiP8d=3.4% (09/26/10): XdS6m=8.5% (01/14/11): PsJ8e=4.8% (04/15/11): XsM9w=8.2% * Eye hx (10/2005 date approx): exam Dr. Calvin. No DM changes per pt, f/u q6mo because of glaucoma, yearly for DM. (): my exam single microaneurysm on right (): no DM changes per pt, exam Dr. Calvin (): exam Dr. Calvin. Moderate non proliferative retinopathy bilat, RTC in 1 yr (): exam Dr. Calvin, in need of laser intervention in right eye (): focal laser on on right eye, Dr. Chan? (03/04/10): mild [employer] bilat, RTC 1 yr, exam Dr. Calvin (12/21/10): exam Dr. Evans, mild [employer] stable, RTC 1 yr * Neuro hx (04/19/11): no resting acral dysesthesias. Gets sweaty > shaky with low sugars. * Renal hx (): urine albumin=18 mcg/mg creat (): urine albumin=6 mcg/mg creat (): urine albumin=16 mcg/mg creat (09/28/09): urine albunmin=16 mcg/mg creat (01/14/11): urine albumin=25 mcg/mg creat * Vascular hx (): jytu=661, TG=81, HDL=54, aMBN=291 (): bamk=945, TG=45, HDL=51, dLDL=66 (): mlgy=646, TG=46, HDL=50, dLDL=76 (04/23/10): frrg=740, TG=45, HDL=65, cLDL=62, CD=409, ALT=13 (04/26/10): no hx [place], stroke, claudication. documented as of this encounter (statuses as of 01/31/2022) [place] [id number] History of Past illness Narrative* Problem Noted Date Resolved Date Diabetes mellitus 11/17/2015 Overview: * Type (07/23/1989): dx type 2 diabetes. (): C-peptide 1.8 ng/ml * Control hx (): HbA1c = 14.8% (): LyE2o=43.7% (): IjW4h=2.9% (): BlD9p=8.2% (): DxS3i=7.6% (): WqI3s=9.1% (): MsO1w=6.1% (): JjW0m=1.7% (09/28/09): WuT8q=9.4% (04/23/10): RdF3y=5.4% (09/26/10): SkO7w=1.5% (01/14/11): QhN9o=4.8% (04/15/11): UhY0k=4.2% * Eye hx (10/2005 date approx): exam Dr. Calvin. No DM changes per pt, f/u q6mo because of glaucoma, yearly for DM. (): my exam single microaneurysm on right (): no DM changes per pt, exam Dr. Calvin (): exam Dr. Calvin. Moderate non proliferative retinopathy bilat, RTC in 1 yr (): exam Dr. Calvin, in need of laser intervention in right eye (): focal laser on on right eye, Dr. Chan? (03/04/10): mild [employer] bilat, RTC 1 yr, exam Dr. Calvin (12/21/10): exam Dr. Evans, mild [employer] stable, RTC 1 yr * Neuro hx (04/19/11): no resting acral dysesthesias. Gets sweaty > shaky with low sugars. * Renal hx (): urine albumin=18 mcg/mg creat (): urine albumin=6 mcg/mg creat (): urine albumin=16 mcg/mg creat (09/28/09): urine albunmin=16 mcg/mg creat (01/14/11): urine albumin=25 mcg/mg creat * Vascular hx (): ykji=558, TG=81, HDL=54, lMFJ=012 (): mlkb=912, TG=45, HDL=51, dLDL=66 (): rbcy=658, TG=46, HDL=50, dLDL=76 (04/23/10): ypax=068, TG=45, HDL=65, cLDL=62, XB=334, ALT=13 (04/26/10): no hx [place], stroke, claudication. documented as of this encounter (statuses as of 02/01/2022) [facility]04-27-2016 History of Past illness Narrative* Problem Noted Date Resolved Date Diabetes mellitus 11/17/2015 Overview: * Type (07/23/1989): dx type 2 diabetes. (): C-peptide 1.8 ng/ml * Control hx (): HbA1c = 14.8% (): PcU3d=62.7% (): NiC0x=9.9% (): OjC2w=4.2% (): QgT3d=8.6% (): MpU7z=7.1% (): JkP8h=4.1% (): QkS9w=4.7% (09/28/09): VlX6p=9.4% (04/23/10): HrE2k=8.4% (09/26/10): HnE3v=5.5% (01/14/11): BvJ8n=9.8% (04/15/11): HtH6e=1.2% * Eye hx (10/2005 date approx): exam Dr. Calvin. No DM changes per pt, f/u q6mo because of glaucoma, yearly for DM. (): my exam single microaneurysm on right (): no DM changes per pt, exam Dr. Calvin (): exam Dr. Calvin. Moderate non proliferative retinopathy bilat, RTC in 1 yr (): exam Dr. Calvin, in need of laser intervention in right eye (): focal laser on on right eye, Dr. Chan? (03/04/10): mild [employer] bilat, RTC 1 yr, exam Dr. Calvin (12/21/10): exam Dr. Evans, mild [employer] stable, RTC 1 yr * Neuro hx (04/19/11): no resting acral dysesthesias. Gets sweaty > shaky with low sugars. * Renal hx (): urine albumin=18 mcg/mg creat (): urine albumin=6 mcg/mg creat (): urine albumin=16 mcg/mg creat (09/28/09): urine albunmin=16 mcg/mg creat (01/14/11): urine albumin=25 mcg/mg creat * Vascular hx (): xgpt=429, TG=81, HDL=54, uGSM=553 (): wopp=194, TG=45, HDL=51, dLDL=66 (): xzqh=215, TG=46, HDL=50, dLDL=76 (04/23/10): aghm=388, TG=45, HDL=65, cLDL=62, XH=104, ALT=13 (04/26/10): no hx [place], stroke, claudication. documented as of this encounter (statuses as of 02/07/2022) [facility]04-27-2016 History of Past illness Narrative* Problem Noted Date Resolved Date Diabetes mellitus 11/17/2015 Overview: * Type (07/23/1989): dx type 2 diabetes. (): C-peptide 1.8 ng/ml * Control hx (): HbA1c = 14.8% (): JnX5k=49.7% (): LaZ1y=3.9% (): TfI6b=4.2% (): RkN6t=0.6% (): DxE6g=2.1% (): TgH1n=7.1% (): SaT2z=5.7% (09/28/09): DzC1n=9.4% (04/23/10): XiA4k=6.4% (09/26/10): RyL5z=2.5% (01/14/11): MqL0m=5.8% (04/15/11): CiE1n=0.2% * Eye hx (10/2005 date approx): exam Dr. Calvin. No DM changes per pt, f/u q6mo because of glaucoma, yearly for DM. (): my exam single microaneurysm on right (): no DM changes per pt, exam Dr. Calvin (): exam Dr. Calvin. Moderate non proliferative retinopathy bilat, RTC in 1 yr (): exam Dr. Calvin, in need of laser intervention in right eye (): focal laser on on right eye, Dr. Chan? (03/04/10): mild [employer] bilat, RTC 1 yr, exam Dr. Calvin (12/21/10): exam Dr. Evans, mild [employer] stable, RTC 1 yr * Neuro hx (04/19/11): no resting acral dysesthesias. Gets sweaty > shaky with low sugars. * Renal hx (): urine albumin=18 mcg/mg creat (): urine albumin=6 mcg/mg creat (): urine albumin=16 mcg/mg creat (09/28/09): urine albunmin=16 mcg/mg creat (01/14/11): urine albumin=25 mcg/mg creat * Vascular hx (): qtvi=870, TG=81, HDL=54, xAMM=752 (): oxbc=000, TG=45, HDL=51, dLDL=66 (): gqej=758, TG=46, HDL=50, dLDL=76 (04/23/10): elrd=343, TG=45, HDL=65, cLDL=62, XM=756, ALT=13 (04/26/10): no hx [place], stroke, claudication. documented as of this encounter (statuses as of 02/20/2022) [facility]04-27-2016 History of Past illness Narrative* Problem Noted Date Resolved Date Diabetes mellitus 11/17/2015 Overview: * Type (07/23/1989): dx type 2 diabetes. (): C-peptide 1.8 ng/ml * Control hx (): HbA1c = 14.8% (): SfR2l=08.7% (): JsL3d=7.9% (): XbI8d=2.2% (): OsQ0h=9.6% (): UwU6s=3.1% (): EjH3j=3.1% (): BdG6d=8.7% (09/28/09): MuB4n=0.4% (04/23/10): UtR7c=4.4% (09/26/10): QfN3g=6.5% (01/14/11): AmT3i=3.8% (04/15/11): FuS0h=4.2% * Eye hx (10/2005 date approx): exam Dr. Calvin. No DM changes per pt, f/u q6mo because of glaucoma, yearly for DM. (): my exam single microaneurysm on right (): no DM changes per pt, exam Dr. Calvin (): exam Dr. Calvin. Moderate non proliferative retinopathy bilat, RTC in 1 yr (): exam Dr. Calvin, in need of laser intervention in right eye (): focal laser on on right eye, Dr. Chan? (03/04/10): mild [employer] bilat, RTC 1 yr, exam Dr. Calvin (12/21/10): exam Dr. Evans, mild [employer] stable, RTC 1 yr * Neuro hx (04/19/11): no resting acral dysesthesias. Gets sweaty > shaky with low sugars. * Renal hx (): urine albumin=18 mcg/mg creat (): urine albumin=6 mcg/mg creat (): urine albumin=16 mcg/mg creat (09/28/09): urine albunmin=16 mcg/mg creat (01/14/11): urine albumin=25 mcg/mg creat * Vascular hx (): aokg=867, TG=81, HDL=54, pAZR=460 (): cbdd=109, TG=45, HDL=51, dLDL=66 (): mswy=881, TG=46, HDL=50, dLDL=76 (04/23/10): etzq=195, TG=45, HDL=65, cLDL=62, AN=639, ALT=13 (04/26/10): no hx [place], stroke, claudication. documented as of this encounter (statuses as of 03/01/2022) [facility]04-27-2016 History of Past illness Narrative* Problem Noted Date Resolved Date Diabetes mellitus 11/17/2015 Overview: * Type ([birth year]/23/1989): dx type 2 diabetes. (): C-peptide 1.8 ng/ml * Control hx (): HbA1c = 14.8% (): LjK3a=74.7% (): FwV3d=6.9% (): AmK8u=7.2% (): SyJ9o=3.6% (): YdY7o=1.1% (): FtC4n=1.1% (): YsP5m=3.7% (09/28/09): QlI9g=3.4% (04/23/10): XsR1k=7.4% (09/26/10): IcR0c=1.5% (01/14/11): JnH8d=6.8% (04/15/11): QrH1k=8.2% * Eye hx (10/2005 date approx): exam Dr. Calvin. No DM changes per pt, f/u q6mo because of glaucoma, yearly for DM. (): my exam single microaneurysm on right (): no DM changes per pt, exam Dr. Calvin (): exam Dr. Calvin. Moderate non proliferative retinopathy bilat, RTC in 1 yr (): exam Dr. Calvin, in need of laser intervention in right eye (): focal laser on on right eye, Dr. Chan? (03/04/10): mild [employer] bilat, RTC 1 yr, exam Dr. Calvin (12/21/10): exam Dr. Evans, mild [employer] stable, RTC 1 yr * Neuro hx (04/19/11): no resting acral dysesthesias. Gets sweaty > shaky with low sugars. * Renal hx (): urine albumin=18 mcg/mg creat (): urine albumin=6 mcg/mg creat (): urine albumin=16 mcg/mg creat (09/28/09): urine albunmin=16 mcg/mg creat (01/14/11): urine albumin=25 mcg/mg creat * Vascular hx (): wczi=906, TG=81, HDL=54, mPPE=973 (): gigh=011, TG=45, HDL=51, dLDL=66 (): xglk=114, TG=46, HDL=50, dLDL=76 (10/2/10): synl=218, TG=45, HDL=65, cLDL=62, VT=935, ALT=13 (04/26/10): no hx [place], stroke, claudication. documented as of this encounter (statuses as of 03/07/2022) [facility]04-27-2016 History of Past illness Narrative* Problem Noted Date Resolved Date Diabetes mellitus 11/17/2015 Overview: * Type (07/23/1989): dx type 2 diabetes. (): C-peptide 1.8 ng/ml * Control hx (): HbA1c = 14.8% (): CnF1k=85.7% (): RzC2t=0.9% (): FcJ7o=7.2% (): MsZ8z=8.6% (): PaK2m=7.1% (): GeD8z=8.1% (): QzV8r=4.7% (09/28/09): JtM8y=8.4% (04/23/10): VvT3q=5.4% (09/26/10): RkZ9i=2.5% (01/14/11): RzT1n=1.8% (04/15/11): XlG9z=0.2% * Eye hx (10/2005 date approx): exam Dr. Calvin. No DM changes per pt, f/u q6mo because of glaucoma, yearly for DM. (): my exam single microaneurysm on right (): no DM changes per pt, exam Dr. Calvin (): exam Dr. Calvin. Moderate non proliferative retinopathy bilat, RTC in 1 yr (): exam Dr. Calvin, in need of laser intervention in right eye (): focal laser on on right eye, Dr. Chan? (03/04/10): mild [employer] bilat, RTC 1 yr, exam Dr. Calvin (12/21/10): exam Dr. Gersman, mild [employer] stable, RTC 1 yr * Neuro hx (04/19/11): no resting acral dysesthesias. Gets sweaty > shaky with low sugars. * Renal hx (): urine albumin=18 mcg/mg creat (): urine albumin=6 mcg/mg creat (): urine albumin=16 mcg/mg creat (09/28/09): urine albunmin=16 mcg/mg creat (01/14/11): urine albumin=25 mcg/mg creat * Vascular hx (): pptk=963, TG=81, HDL=54, bNMP=322 (): xoqy=184, TG=45, HDL=51, dLDL=66 (): szli=204, TG=46, HDL=50, dLDL=76 (04/23/10): iwqx=237, TG=45, HDL=65, cLDL=62, AU=456, ALT=13 (04/26/10): no hx [place], stroke, claudication. documented as of this encounter (statuses as of 03/13/2022) [facility]04-27[facility]2016 History of Past illness Narrative* Problem Noted Date Resolved Date Diabetes mellitus 11/17/2015 Overview: * Type (07/23/1989): dx type 2 diabetes. (): C-peptide 1.8 ng/ml * Control hx (): HbA1c = 14.8% (): KlU3q=64.7% (): NkG6x=4.9% (): WaP0j=9.2% (): PxB8p=8.6% (): LyZ6e=5.1% (): GaA2p=4.1% (): SzB8s=0.7% (09/28/09): KpY1b=3.4% (04/23/10): ViA4l=6.4% (09/26/10): PuS2l=3.5% (01/14/11): YgZ6i=2.8% (04/15/11): PeR2m=9.2% * Eye hx (10/2005 date approx): exam Dr. Calvin. No DM changes per pt, f/u q6mo because of glaucoma, yearly for DM. (): my exam single microaneurysm on right (): no DM changes per pt, exam Dr. Calvin (): exam Dr. Calvin. Moderate non proliferative retinopathy bilat, RTC in 1 yr (): exam Dr. Calvin, in need of laser intervention in right eye (): focal laser on on right eye, Dr. Chan? (03/04/10): mild [employer] bilat, RTC 1 yr, exam Dr. Calvin (12/21/10): exam Dr. Evans, mild [employer] stable, RTC 1 yr * Neuro hx (04/19/11): no resting acral dysesthesias. Gets sweaty > shaky with low sugars. * Renal hx (): urine albumin=18 mcg/mg creat (): urine albumin=6 mcg/mg creat (): urine albumin=16 mcg/mg creat (09/28/09): urine albunmin=16 mcg/mg creat (01/14/11): urine albumin=25 mcg/mg creat * Vascular hx (): soum=893, TG=81, HDL=54, fKUU=670 (): ocfy=552, TG=45, HDL=51, dLDL=66 (): pigj=684, TG=46, HDL=50, dLDL=76 (04/23/10): wskn=102, TG=45, HDL=65, cLDL=62, WQ=281, ALT=13 (04/26/10): no hx [place], stroke, claudication. documented as of this encounter (statuses as of 04/04/2022) [facility]2016 History of Past illness Narrative* Problem Noted Date Resolved Date Diabetes mellitus 11/17/2015 Overview: * Type (07/23/1989): dx type 2 diabetes. (): C-peptide 1.8 ng/ml * Control hx (): HbA1c = 14.8% (): AzT3u=01.7% (): OuP8m=1.9% (): GjZ2j=3.2% (): AmH7z=8.6% (): ObT8s=3.1% (): YiG9r=0.1% (): KqG8p=9.7% (09/28/09): EvN6d=9.4% (04/23/10): NkF9z=0.4% (09/26/10): GkZ8m=9.5% (01/14/11): RrU8e=8.8% (04/15/11): RaU5u=6.2% * Eye hx (10/2005 date approx): exam Dr. Calvin. No DM changes per pt, f/u q6mo because of glaucoma, yearly for DM. (): my exam single microaneurysm on right (): no DM changes per pt, exam Dr. Calvin (): exam Dr. Calvin. Moderate non proliferative retinopathy bilat, RTC in 1 yr (): exam Dr. Calvin, in need of laser intervention in right eye (): focal laser on on right eye, Dr. Chan? (03/04/10): mild [employer] bilat, RTC 1 yr, exam Dr. Calvin (12/21/10): exam Dr. Evans, mild [employer] stable, RTC 1 yr * Neuro hx (04/19/11): no resting acral dysesthesias. Gets sweaty > shaky with low sugars. * Renal hx (): urine albumin=18 mcg/mg creat (): urine albumin=6 mcg/mg creat (): urine albumin=16 mcg/mg creat (09/28/09): urine albunmin=16 mcg/mg creat (01/14/11): urine albumin=25 mcg/mg creat * Vascular hx (): qwnc=662, TG=81, HDL=54, rASO=646 (): kqez=080, TG=45, HDL=51, dLDL=66 (): pdva=216, TG=46, HDL=50, dLDL=76 (04/23/10): ongg=876, TG=45, HDL=65, cLDL=62, TP=394, ALT=13 (04/26/10): no hx [place], stroke, claudication. documented as of this encounter (statuses as of 04/25/2022) [facility]2016 History of Past illness Narrative* Problem Noted Date Resolved Date Diabetes mellitus 11/17/2015 Overview: * Type (07/23/1989): dx type 2 diabetes. (): C-peptide 1.8 ng/ml * Control hx (): HbA1c = 14.8% (): FcM2g=78.7% (): AdG8s=7.9% (): QhL5m=7.2% (): OvS4u=7.6% (): QtA4t=7.1% (): JhY9t=2.1% (): WcN6q=9.7% (09/28/09): PvL7i=5.4% (04/23/10): ZmJ5f=8.4% (09/26/10): ZgP3h=0.5% (01/14/11): KlR9k=4.8% (04/15/11): NoQ5d=6.2% * Eye hx (10/2005 date approx): exam Dr. Calvin. No DM changes per pt, f/u q6mo because of glaucoma, yearly for DM. (): my exam single microaneurysm on right (): no DM changes per pt, exam Dr. Calvin (): exam Dr. Calvin. Moderate non proliferative retinopathy bilat, RTC in 1 yr (): exam Dr. Calvin, in need of laser intervention in right eye (): focal laser on on right eye, Dr. Chan? (03/04/10): mild [employer] bilat, RTC 1 yr, exam Dr. Calvin (12/21/10): exam Dr. Evans, mild [employer] stable, RTC 1 yr * Neuro hx (04/19/11): no resting acral dysesthesias. Gets sweaty > shaky with low sugars. * Renal hx (): urine albumin=18 mcg/mg creat (): urine albumin=6 mcg/mg creat (): urine albumin=16 mcg/mg creat (09/28/09): urine albunmin=16 mcg/mg creat (01/14/11): urine albumin=25 mcg/mg creat * Vascular hx (): ppah=116, TG=81, HDL=54, iUQP=750 (): vnzj=707, TG=45, HDL=51, dLDL=66 (): ctkg=017, TG=46, HDL=50, dLDL=76 (04/23/10): jxhf=287, TG=45, HDL=65, cLDL=62, VG=728, ALT=13 (04/26/10): no hx [place], stroke, claudication. documented as of this encounter (statuses as of 04/27/2022) [facility]2016 History of Past illness Narrative* Problem Noted Date Resolved Date Diabetes mellitus 11/17/2015 Overview: * Type (07/23/1989): dx type 2 diabetes. (): C-peptide 1.8 ng/ml * Control hx (): HbA1c = 14.8% (): AzB3l=61.7% (): ZkO1r=7.9% (): ZmD7e=6.2% (): LcB1e=8.6% (): KtV8w=2.1% (): HhB2a=4.1% (): VyH0t=7.7% (09/28/09): QuY7n=6.4% (04/23/10): BvQ7g=4.4% (09/26/10): OcP6x=6.5% (01/14/11): WyW9t=4.8% (04/15/11): CbY9q=7.2% * Eye hx (10/2005 date approx): exam Dr. Calvin. No DM changes per pt, f/u q6mo because of glaucoma, yearly for DM. (): my exam single microaneurysm on right (): no DM changes per pt, exam Dr. Calvin (): exam Dr. Calvin. Moderate non proliferative retinopathy bilat, RTC in 1 yr (): exam Dr. Calvin, in need of laser intervention in right eye (): focal laser on on right eye, Dr. Chan? (03/04/10): mild [employer] bilat, RTC 1 yr, exam Dr. Calvin (12/21/10): exam Dr. Evans, mild [employer] stable, RTC 1 yr * Neuro hx (04/19/11): no resting acral dysesthesias. Gets sweaty > shaky with low sugars. * Renal hx (): urine albumin=18 mcg/mg creat (): urine albumin=6 mcg/mg creat (): urine albumin=16 mcg/mg creat (09/28/09): urine albunmin=16 mcg/mg creat (01/14/11): urine albumin=25 mcg/mg creat * Vascular hx (): eegx=272, TG=81, HDL=54, rPNG=148 (): ismr=467, TG=45, HDL=51, dLDL=66 (): uugh=952, TG=46, HDL=50, dLDL=76 (04/23/10): zlqg=454, TG=45, HDL=65, cLDL=62, MK=531, ALT=13 (04/26/10): no hx [place], stroke, claudication. documented as of this encounter (statuses as of 05/02/2022) [facility] History of Past illness Narrative* Problem Noted Date Resolved Date Diabetes mellitus 11/17/2015 Overview: * Type (07/23/1989): dx type 2 diabetes. (): C-peptide 1.8 ng/ml * Control hx (): HbA1c = 14.8% (): CvA1w=84.7% (): HxJ6d=4.9% (): KwZ8p=3.2% (): HkK8i=4.6% (): PsQ5a=6.1% (): RyQ4m=2.1% (): HbZ9q=2.7% (09/28/09): BaG0a=2.4% (04/23/10): WlN7s=9.4% (09/26/10): PoP5o=6.5% (01/14/11): RmU8h=8.8% (04/15/11): BtV5p=6.2% * Eye hx (10/2005 date approx): exam Dr. Calvin. No DM changes per pt, f/u q6mo because of glaucoma, yearly for DM. (): my exam single microaneurysm on right (): no DM changes per pt, exam Dr. Calvin (): exam Dr. Calvin. Moderate non proliferative retinopathy bilat, RTC in 1 yr (): exam Dr. Calvin, in need of laser intervention in right eye (): focal laser on on right eye, Dr. Chan? (03/04/10): mild [employer] bilat, RTC 1 yr, exam Dr. Calvin (12/21/10): exam Dr. Evans, mild [employer] stable, RTC 1 yr * Neuro hx (04/19/11): no resting acral dysesthesias. Gets sweaty > shaky with low sugars. * Renal hx (): urine albumin=18 mcg/mg creat (): urine albumin=6 mcg/mg creat (): urine albumin=16 mcg/mg creat (09/28/09): urine albunmin=16 mcg/mg creat (01/14/11): urine albumin=25 mcg/mg creat * Vascular hx (): dwij=172, TG=81, HDL=54, qAVE=887 (): gsao=978, TG=45, HDL=51, dLDL=66 (): wnrw=560, TG=46, HDL=50, dLDL=76 (04/23/10): ryiy=256, TG=45, HDL=65, cLDL=62, CH=640, ALT=13 (04/26/10): no hx [place], stroke, claudication. documented as of this encounter (statuses as of 06/08/2022) [facility] History of Past illness Narrative* Problem Noted Date Resolved Date Diabetes mellitus 11/17/2015 Overview: * Type (07/23/1989): dx type 2 diabetes. (): C-peptide 1.8 ng/ml * Control hx (): HbA1c = 14.8% (): UuL9c=64.7% (): AlB2e=3.9% (): FhH1j=3.2% (): VnO3i=6.6% (): OoX1w=3.1% (): IlZ3s=2.1% (): TsG2t=1.7% (09/28/09): FwF7y=1.4% (04/23/10): UxB3w=9.4% (09/26/10): GtZ1c=6.5% (01/14/11): GfG8a=5.8% (04/15/11): PdU2e=1.2% * Eye hx (10/2005 date approx): exam Dr. Calvin. No DM changes per pt, f/u q6mo because of glaucoma, yearly for DM. (): my exam single microaneurysm on right (): no DM changes per pt, exam Dr. Calvin (): exam Dr. Calvin. Moderate non proliferative retinopathy bilat, RTC in 1 yr (): exam Dr. Calvin, in need of laser intervention in right eye (): focal laser on on right eye, Dr. Chan? (03/04/10): mild [employer] bilat, RTC 1 yr, exam Dr. Calvin (12/21/10): exam Dr. Evans, mild [employer] stable, RTC 1 yr * Neuro hx (04/19/11): no resting acral dysesthesias. Gets sweaty > shaky with low sugars. * Renal hx (): urine albumin=18 mcg/mg creat (): urine albumin=6 mcg/mg creat (): urine albumin=16 mcg/mg creat (09/28/09): urine albunmin=16 mcg/mg creat (01/14/11): urine albumin=25 mcg/mg creat * Vascular hx (): djws=263, TG=81, HDL=54, bZAF=972 (): tznj=488, TG=45, HDL=51, dLDL=66 (): enno=283, TG=46, HDL=50, dLDL=76 (04/23/10): bbzd=962, TG=45, HDL=65, cLDL=62, SI=810, ALT=13 (04/26/10): no hx [place], stroke, claudication. documented as of this encounter (statuses as of 06/22/2022) [facility] History of Past illness Narrative* Problem Noted Date Resolved Date Diabetes mellitus 11/17/2015 Overview: * Type (07/23/1989): dx type 2 diabetes. (): C-peptide 1.8 ng/ml * Control hx (): HbA1c = 14.8% (): NpJ7j=21.7% (): DhT5e=7.9% (): JvQ7r=6.2% (): AjP7p=1.6% (): WlF2t=4.1% (): OlE6m=5.1% (): UiN1l=6.7% (09/28/09): KbH3w=3.4% (04/23/10): FuK7g=8.4% (09/26/10): GzQ4b=6.5% (01/14/11): SjP8g=0.8% (04/15/11): DcY1u=8.2% * Eye hx (10/2005 date approx): exam Dr. Calvin. No DM changes per pt, f/u q6mo because of glaucoma, yearly for DM. (): my exam single microaneurysm on right (): no DM changes per pt, exam Dr. Calvin (): exam Dr. Calvin. Moderate non proliferative retinopathy bilat, RTC in 1 yr (): exam Dr. Calvin, in need of laser intervention in right eye (): focal laser on on right eye, Dr. Chan? (03/04/10): mild [employer] bilat, RTC 1 yr, exam Dr. Calvin (12/21/10): exam Dr. Evans, mild [employer] stable, RTC 1 yr * Neuro hx (04/19/11): no resting acral dysesthesias. Gets sweaty > shaky with low sugars. * Renal hx (): urine albumin=18 mcg/mg creat (): urine albumin=6 mcg/mg creat (): urine albumin=16 mcg/mg creat (09/28/09): urine albunmin=16 mcg/mg creat (01/14/11): urine albumin=25 mcg/mg creat * Vascular hx (): dfwz=895, TG=81, HDL=54, dJYU=004 (): ovsp=453, TG=45, HDL=51, dLDL=66 (): rzzu=071, TG=46, HDL=50, dLDL=76 (04/23/10): aanu=554, TG=45, HDL=65, cLDL=62, WU=319, ALT=13 (04/26/10): no hx [place], stroke, claudication. documented as of this encounter (statuses as of 07/03/2022) [facility]04-27-2016 History of Past illness Narrative* Problem Noted Date Resolved Date Diabetes mellitus 11/17/2015 Overview: * Type (07/23/1989): dx type 2 diabetes. (): C-peptide 1.8 ng/ml * Control hx (): HbA1c = 14.8% (): EeK2x=81.7% (): FsC3g=5.9% (): WlK4a=2.2% (): QrM1e=7.6% (): MsS7a=4.1% (): KwW8h=9.1% (): SkG4t=7.7% (09/28/09): SzM9n=3.4% (04/23/10): OjZ5x=3.4% (09/26/10): MaR1o=6.5% (01/14/11): TqB9x=7.8% (04/15/11): FnD4m=7.2% * Eye hx (10/2005 date approx): exam Dr. Calvin. No DM changes per pt, f/u q6mo because of glaucoma, yearly for DM. (): my exam single microaneurysm on right (): no DM changes per pt, exam Dr. Calvin (): exam Dr. Calvin. Moderate non proliferative retinopathy bilat, RTC in 1 yr (): exam Dr. Calvin, in need of laser intervention in right eye (): focal laser on on right eye, Dr. Chan? (03/04/10): mild [employer] bilat, RTC 1 yr, exam Dr. Calivn (12/21/10): exam Dr. Evans, mild [employer] stable, RTC 1 yr * Neuro hx (04/19/11): no resting acral dysesthesias. Gets sweaty > shaky with low sugars. * Renal hx (): urine albumin=18 mcg/mg creat (): urine albumin=6 mcg/mg creat (): urine albumin=16 mcg/mg creat (09/28/09): urine albunmin=16 mcg/mg creat (01/14/11): urine albumin=25 mcg/mg creat * Vascular hx (): gktn=469, TG=81, HDL=54, vCOF=206 (): rokp=705, TG=45, HDL=51, dLDL=66 (): cruq=309, TG=46, HDL=50, dLDL=76 (04/23/10): widn=132, TG=45, HDL=65, cLDL=62, EF=308, ALT=13 (04/26/10): no hx [place], stroke, claudication. documented as of this encounter (statuses as of 07/10/2022) [facility]04-27-2016 History of Past illness Narrative* Problem Noted Date Resolved Date Diabetes mellitus 11/17/2015 Overview: * Type (07/23/1989): dx type 2 diabetes. (): C-peptide 1.8 ng/ml * Control hx (): HbA1c = 14.8% (): SvS2h=82.7% (): YyE1x=8.9% (): StO3o=9.2% (): KoB6i=6.6% (): TpO4w=8.1% (): HyY4z=1.1% (): BkD3o=6.7% (09/28/09): HcR4b=2.4% (04/23/10): YyK9z=7.4% (09/26/10): FyF4b=0.5% (01/14/11): OzJ6n=0.8% (04/15/11): UdB4a=4.2% * Eye hx (10/2005 date approx): exam Dr. Calvin. No DM changes per pt, f/u q6mo because of glaucoma, yearly for DM. (): my exam single microaneurysm on right (): no DM changes per pt, exam Dr. Calvin (): exam Dr. Calvin. Moderate non proliferative retinopathy bilat, RTC in 1 yr (): exam Dr. Calvin, in need of laser intervention in right eye (): focal laser on on right eye, Dr. Chan? (03/04/10): mild [employer] bilat, RTC 1 yr, exam Dr. Calvin (12/21/10): exam Dr. Evans, mild [employer] stable, RTC 1 yr * Neuro hx (04/19/11): no resting acral dysesthesias. Gets sweaty > shaky with low sugars. * Renal hx (): urine albumin=18 mcg/mg creat (): urine albumin=6 mcg/mg creat (): urine albumin=16 mcg/mg creat (09/28/09): urine albunmin=16 mcg/mg creat (01/14/11): urine albumin=25 mcg/mg creat * Vascular hx (): nccl=845, TG=81, HDL=54, bQRU=750 (): agvp=970, TG=45, HDL=51, dLDL=66 (): nddl=591, TG=46, HDL=50, dLDL=76 (04/23/10): prnl=984, TG=45, HDL=65, cLDL=62, SC=256, ALT=13 (04/26/10): no hx [place], stroke, claudication. documented as of this encounter (statuses as of 07/28/2022) [facility]04-27-2016 History of Past illness Narrative* Problem Noted Date Resolved Date Diabetes mellitus 11/17/2015 Overview: * Type (07/23/1989): dx type 2 diabetes. (): C-peptide 1.8 ng/ml * Control hx (): HbA1c = 14.8% (): YgQ7q=12.7% (): CwK3x=0.9% (): QtL4g=7.2% (): GuH9c=5.6% (): ByZ0z=1.1% (): JaD6i=3.1% (): WoD1n=1.7% (09/28/09): FwS3n=9.4% (04/23/10): TvE4v=4.4% (09/26/10): ViL9q=1.5% (01/14/11): ZmS1o=8.8% (04/15/11): HbC4x=7.2% * Eye hx (10/2005 date approx): exam Dr. Calvin. No DM changes per pt, f/u q6mo because of glaucoma, yearly for DM. (): my exam single microaneurysm on right (): no DM changes per pt, exam Dr. Calvin (): exam Dr. Calvin. Moderate non proliferative retinopathy bilat, RTC in 1 yr (): exam Dr. Calvin, in need of laser intervention in right eye (): focal laser on on right eye, Dr. Chan? (03/04/10): mild [employer] bilat, RTC 1 yr, exam Dr. Calvin (12/21/10): exam Dr. Evans, mild [employer] stable, RTC 1 yr * Neuro hx (04/19/11): no resting acral dysesthesias. Gets sweaty > shaky with low sugars. * Renal hx (): urine albumin=18 mcg/mg creat (): urine albumin=6 mcg/mg creat (): urine albumin=16 mcg/mg creat (09/28/09): urine albunmin=16 mcg/mg creat (01/14/11): urine albumin=25 mcg/mg creat * Vascular hx (): ujms=922, TG=81, HDL=54, gBWI=723 (): hish=180, TG=45, HDL=51, dLDL=66 (): xojt=893, TG=46, HDL=50, dLDL=76 (04/23/10): hffv=654, TG=45, HDL=65, cLDL=62, SK=903, ALT=13 (04/26/10): no hx [place], stroke, claudication. documented as of this encounter (statuses as of 08/07/2022) [facility]04-[facility]2016 History of Past illness Narrative* Problem Noted Date Resolved Date Diabetes mellitus 11/17/2015 Overview: * Type (07/23/1989): dx type 2 diabetes. (): C-peptide 1.8 ng/ml * Control hx (): HbA1c = 14.8% (): CsV2y=55.7% (): TiG5p=6.9% (): BjC5e=3.2% (): YxR5p=5.6% (): AnT3e=4.1% (): VeG3i=7.1% (): PdG4l=3.7% (09/28/09): XtO1w=8.4% (04/23/10): DwH1b=3.4% (09/26/10): YeN2s=7.5% (01/14/11): ZpT7w=7.8% (04/15/11): MtX4p=7.2% * Eye hx (10/2005 date approx): exam Dr. Calvin. No DM changes per pt, f/u q6mo because of glaucoma, yearly for DM. (): my exam single microaneurysm on right (): no DM changes per pt, exam Dr. Calvin (): exam Dr. Calvin. Moderate non proliferative retinopathy bilat, RTC in 1 yr (): exam Dr. Calvin, in need of laser intervention in right eye (): focal laser on on right eye, Dr. Chan? (03/04/10): mild [employer] bilat, RTC 1 yr, exam Dr. Calvin (12/21/10): exam Dr. Evans, mild [employer] stable, RTC 1 yr * Neuro hx (04/19/11): no resting acral dysesthesias. Gets sweaty > shaky with low sugars. * Renal hx (): urine albumin=18 mcg/mg creat (): urine albumin=6 mcg/mg creat (): urine albumin=16 mcg/mg creat (09/28/09): urine albunmin=16 mcg/mg creat (01/14/11): urine albumin=25 mcg/mg creat * Vascular hx (): zmop=563, TG=81, HDL=54, gCDP=256 (): xzdp=940, TG=45, HDL=51, dLDL=66 (): kief=735, TG=46, HDL=50, dLDL=76 (04/23/10): kelp=885, TG=45, HDL=65, cLDL=62, HS=853, ALT=13 (04/26/10): no hx [place], stroke, claudication. documented as of this encounter (statuses as of 08/07/2022) [facility] History of Past illness Narrative* Problem Noted Date Resolved Date Diabetes mellitus 11/17/2015 Overview: * Type (07/23/1989): dx type 2 diabetes. (): C-peptide 1.8 ng/ml * Control hx (): HbA1c = 14.8% (): DuY4j=72.7% (): WwD5z=2.9% (): SjL0n=0.2% (): LtB3m=6.6% (): KcW8a=4.1% (): NbO1h=6.1% (): RzJ6a=6.7% (09/28/09): KfS2j=2.4% (04/23/10): UcE6x=4.4% (09/26/10): PpU7a=6.5% (01/14/11): BuZ5x=4.8% (04/15/11): PfB6o=5.2% * Eye hx (10/2005 date approx): exam Dr. Calvin. No DM changes per pt, f/u q6mo because of glaucoma, yearly for DM. (): my exam single microaneurysm on right (): no DM changes per pt, exam Dr. Calvin (): exam Dr. Calvin. Moderate non proliferative retinopathy bilat, RTC in 1 yr (): exam Dr. Calvin, in need of laser intervention in right eye (): focal laser on on right eye, Dr. Chan? (03/04/10): mild [employer] bilat, RTC 1 yr, exam Dr. Calvin (12/21/10): exam Dr. Evans, mild [employer] stable, RTC 1 yr * Neuro hx (04/19/11): no resting acral dysesthesias. Gets sweaty > shaky with low sugars. * Renal hx (): urine albumin=18 mcg/mg creat (): urine albumin=6 mcg/mg creat (): urine albumin=16 mcg/mg creat (09/28/09): urine albunmin=16 mcg/mg creat (01/14/11): urine albumin=25 mcg/mg creat * Vascular hx (): rmsl=947, TG=81, HDL=54, xQFW=185 (): voxn=520, TG=45, HDL=51, dLDL=66 (): ulhg=082, TG=46, HDL=50, dLDL=76 (04/23/10): zvas=957, TG=45, HDL=65, cLDL=62, AD=334, ALT=13 (04/26/10): no hx [place], stroke, claudication. documented as of this encounter (statuses as of 09/07/2022) [facility] History of Past illness Narrative* Problem Noted Date Resolved Date Diabetes mellitus 11/17/2015 Overview: * Type ([birth year]/1989): dx type 2 diabetes. (): C-peptide 1.8 ng/ml * Control hx (): HbA1c = 14.8% (): YsO9u=32.7% (): OmO9s=6.9% (): YyH3w=5.2% (): ToZ1i=1.6% (): NoV4x=9.1% (): WeG2l=5.1% (): SmT4l=4.7% (09/28/09): LtO1q=7.4% (04/23/10): OqC6e=3.4% (09/26/10): MnS7s=3.5% (01/14/11): QoK3i=8.8% (04/15/11): RpN7n=5.2% * Eye hx (10/2005 date approx): exam Dr. Calvin. No DM changes per pt, f/u q6mo because of glaucoma, yearly for DM. (): my exam single microaneurysm on right (): no DM changes per pt, exam Dr. Calvin (): exam Dr. Calvin. Moderate non proliferative retinopathy bilat, RTC in 1 yr (): exam Dr. Calvin, in need of laser intervention in right eye (): focal laser on on right eye, Dr. Chan? (03/04/10): mild [employer] bilat, RTC 1 yr, exam Dr. Calvin (12/21/10): exam Dr. Evans, mild [employer] stable, RTC 1 yr * Neuro hx (04/19/11): no resting acral dysesthesias. Gets sweaty > shaky with low sugars. * Renal hx (): urine albumin=18 mcg/mg creat (): urine albumin=6 mcg/mg creat (): urine albumin=16 mcg/mg creat (09/28/09): urine albunmin=16 mcg/mg creat (01/14/11): urine albumin=25 mcg/mg creat * Vascular hx (): vdvp=523, TG=81, HDL=54, fGEP=785 (): kahi=489, TG=45, HDL=51, dLDL=66 (): vhvb=488, TG=46, HDL=50, dLDL=76 (04/23/10): nanw=624, TG=45, HDL=65, cLDL=62, UH=084, ALT=13 (04/26/10): no hx [place], stroke, claudication. documented as of this encounter (statuses as of 09/14/2022) [facility] History of Past illness Narrative* Problem Noted Date Resolved Date Diabetes mellitus 11/17/2015 Overview: * Type (07/23/1989): dx type 2 diabetes. (): C-peptide 1.8 ng/ml * Control hx (): HbA1c = 14.8% (): XxS8d=56.7% (): ZwR3g=8.9% (): HtV3i=7.2% (): IdG3x=2.6% (): IlE5w=7.1% (): SmY1r=4.1% (): IeU2c=5.7% (09/28/09): JoY6y=7.4% (04/23/10): OiG6n=2.4% (09/26/10): TeV5r=0.5% (01/14/11): TrF7n=2.8% (04/15/11): IaS6o=9.2% * Eye hx (10/2005 date approx): exam Dr. Calvin. No DM changes per pt, f/u q6mo because of glaucoma, yearly for DM. (): my exam single microaneurysm on right (): no DM changes per pt, exam Dr. Calvin (): exam Dr. Calvin. Moderate non proliferative retinopathy bilat, RTC in 1 yr (): exam Dr. Calvin, in need of laser intervention in right eye (): focal laser on on right eye, Dr. Chan? (03/04/10): mild [employer] bilat, RTC 1 yr, exam Dr. Calvin (12/21/10): exam Dr. Evans, mild [employer] stable, RTC 1 yr * Neuro hx (04/19/11): no resting acral dysesthesias. Gets sweaty > shaky with low sugars. * Renal hx (): urine albumin=18 mcg/mg creat (): urine albumin=6 mcg/mg creat (): urine albumin=16 mcg/mg creat (09/28/09): urine albunmin=16 mcg/mg creat (01/14/11): urine albumin=25 mcg/mg creat * Vascular hx (): dgam=576, TG=81, HDL=54, lLFI=084 (): chkb=507, TG=45, HDL=51, dLDL=66 (): urzl=870, TG=46, HDL=50, dLDL=76 (04/23/10): ubfs=229, TG=45, HDL=65, cLDL=62, YY=092, ALT=13 (04/26/10): no hx [place], stroke, claudication. documented as of this encounter (statuses as of 09/15/2022) [facility] History of Past illness Narrative* Problem Noted Date Resolved Date Diabetes mellitus 11/17/2015 Overview: * Type (07/23/1989): dx type 2 diabetes. (): C-peptide 1.8 ng/ml * Control hx (): HbA1c = 14.8% (): AlJ0c=46.7% (): DnC5n=5.9% (): AkQ8x=0.2% (): CsE0j=4.6% (): LbH2l=2.1% (): ZkX4u=4.1% (): KfC5h=0.7% (09/28/09): DqM2w=6.4% (04/23/10): UoY3g=4.4% (09/26/10): ScC0r=0.5% (01/14/11): FoN5l=6.8% (04/15/11): OwI8f=0.2% * Eye hx (10/2005 date approx): exam Dr. Calvin. No DM changes per pt, f/u q6mo because of glaucoma, yearly for DM. (): my exam single microaneurysm on right (): no DM changes per pt, exam Dr. Calvin (): exam Dr. Calvin. Moderate non proliferative retinopathy bilat, RTC in 1 yr (): exam Dr. Calvin, in need of laser intervention in right eye (): focal laser on on right eye, Dr. Chan? (03/04/10): mild [employer] bilat, RTC 1 yr, exam Dr. Calvin (12/21/10): exam Dr. Evans, mild [employer] stable, RTC 1 yr * Neuro hx (04/19/11): no resting acral dysesthesias. Gets sweaty > shaky with low sugars. * Renal hx (): urine albumin=18 mcg/mg creat (): urine albumin=6 mcg/mg creat (): urine albumin=16 mcg/mg creat (09/28/09): urine albunmin=16 mcg/mg creat (01/14/11): urine albumin=25 mcg/mg creat * Vascular hx (): hixb=068, TG=81, HDL=54, fKRF=565 (): ghej=715, TG=45, HDL=51, dLDL=66 (): zzxs=103, TG=46, HDL=50, dLDL=76 (04/23/10): nkol=552, TG=45, HDL=65, cLDL=62, PG=284, ALT=13 (04/26/10): no hx [place], stroke, claudication. documented as of this encounter (statuses as of 10/27/2022) [facility] History of Past illness Narrative* Problem Noted Date Resolved Date Diabetes mellitus 11/17/2015 Overview: * Type ([birth year]/1989): dx type 2 diabetes. (): C-peptide 1.8 ng/ml * Control hx (): HbA1c = 14.8% (): HcT3h=64.7% (): EiN8z=7.9% (): CmN0k=7.2% (): GqA4v=0.6% (): EkM3l=2.1% (): CnJ8y=5.1% (): ZmU6u=3.7% (09/28/09): FdL9m=5.4% (04/23/10): EyS7f=6.4% (09/26/10): UkH3d=0.5% (01/14/11): NnI4t=4.8% (04/15/11): NiU4x=2.2% * Eye hx (10/2005 date approx): exam Dr. Calvin. No DM changes per pt, f/u q6mo because of glaucoma, yearly for DM. (): my exam single microaneurysm on right (): no DM changes per pt, exam Dr. Calvin (): exam Dr. Calvin. Moderate non proliferative retinopathy bilat, RTC in 1 yr (): exam Dr. Calvin, in need of laser intervention in right eye (): focal laser on on right eye, Dr. Chan? (03/04/10): mild [employer] bilat, RTC 1 yr, exam Dr. Calvin (12/21/10): exam Dr. Evans, mild [employer] stable, RTC 1 yr * Neuro hx (04/19/11): no resting acral dysesthesias. Gets sweaty > shaky with low sugars. * Renal hx (): urine albumin=18 mcg/mg creat (): urine albumin=6 mcg/mg creat (): urine albumin=16 mcg/mg creat (09/28/09): urine albunmin=16 mcg/mg creat (01/14/11): urine albumin=25 mcg/mg creat * Vascular hx (): doyu=468, TG=81, HDL=54, pZEC=725 (): icnf=652, TG=45, HDL=51, dLDL=66 (): zjor=916, TG=46, HDL=50, dLDL=76 (04/23/10): jfnv=011, TG=45, HDL=65, cLDL=62, KO=255, ALT=13 (04/26/10): no hx [place], stroke, claudication. documented as of this encounter (statuses as of 10/27/2022) [facility] History of Past illness Narrative* Problem Noted Date Resolved Date Diabetes mellitus 11/17/2015 Overview: * Type (07/23/1989): dx type 2 diabetes. (): C-peptide 1.8 ng/ml * Control hx (): HbA1c = 14.8% (): ElU0g=42.7% (): AyC0m=7.9% (): OuM9e=8.2% (): JzE6c=1.6% (): FpP8z=7.1% (): OzI0t=2.1% (): RhB2n=8.7% (09/28/09): GeO7j=2.4% (04/23/10): YvT8h=9.4% (09/26/10): BiN0i=0.5% (01/14/11): GfH1d=2.8% (04/15/11): RvU9c=5.2% * Eye hx (10/2005 date approx): exam Dr. Calvin. No DM changes per pt, f/u q6mo because of glaucoma, yearly for DM. (): my exam single microaneurysm on right (): no DM changes per pt, exam Dr. Calvin (): exam Dr. Calvin. Moderate non proliferative retinopathy bilat, RTC in 1 yr (): exam Dr. Calvin, in need of laser intervention in right eye (): focal laser on on right eye, Dr. Chan? (03/04/10): mild [employer] bilat, RTC 1 yr, exam Dr. Calvin (12/21/10): exam Dr. Evans, mild [employer] stable, RTC 1 yr * Neuro hx (04/19/11): no resting acral dysesthesias. Gets sweaty > shaky with low sugars. * Renal hx (): urine albumin=18 mcg/mg creat (): urine albumin=6 mcg/mg creat (): urine albumin=16 mcg/mg creat (09/28/09): urine albunmin=16 mcg/mg creat (01/14/11): urine albumin=25 mcg/mg creat * Vascular hx (): vgkg=896, TG=81, HDL=54, pQNK=821 (): xmew=129, TG=45, HDL=51, dLDL=66 (): vkuj=719, TG=46, HDL=50, dLDL=76 (04/23/10): zvkm=274, TG=45, HDL=65, cLDL=62, JF=445, ALT=13 (04/26/10): no hx [place], stroke, claudication. documented as of this encounter (statuses as of 10/30/2022) [facility] History of Past illness Narrative* Problem Noted Date Resolved Date Diabetes mellitus 11/17/2015 Overview: * Type (07/[birth year]/1989): dx type 2 diabetes. (): C-peptide 1.8 ng/ml * Control hx (): HbA1c = 14.8% (): NkL6y=86.7% (): ScN5e=8.9% (): MoT9r=6.2% (): UrB2e=3.6% (): BeL0p=8.1% (): AdI4z=1.1% (): LaH7z=8.7% (09/28/09): MaS1v=4.4% (04/23/10): UsF8p=0.4% (09/26/10): YmN7p=3.5% (01/14/11): FsY8w=9.8% (04/15/11): XoO7i=3.2% * Eye hx (10/2005 date approx): exam Dr. Calvin. No DM changes per pt, f/u q6mo because of glaucoma, yearly for DM. (): my exam single microaneurysm on right (): no DM changes per pt, exam Dr. Calvin (): exam Dr. Calvin. Moderate non proliferative retinopathy bilat, RTC in 1 yr (): exam Dr. Calvin, in need of laser intervention in right eye (): focal laser on on right eye, Dr. Chan? (03/04/10): mild [employer] bilat, RTC 1 yr, exam Dr. Calvin (12/21/10): exam Dr. Evans, mild [employer] stable, RTC 1 yr * Neuro hx (04/19/11): no resting acral dysesthesias. Gets sweaty > shaky with low sugars. * Renal hx (): urine albumin=18 mcg/mg creat (): urine albumin=6 mcg/mg creat (): urine albumin=16 mcg/mg creat (09/28/09): urine albunmin=16 mcg/mg creat (01/14/11): urine albumin=25 mcg/mg creat * Vascular hx (): phki=506, TG=81, HDL=54, dZBD=248 (): jpzx=877, TG=45, HDL=51, dLDL=66 (): xvtt=922, TG=46, HDL=50, dLDL=76 (04/23/10): fopm=041, TG=45, HDL=65, cLDL=62, IK=030, ALT=13 (04/26/10): no hx [place], stroke, claudication. documented as of this encounter (statuses as of 11/01/2022) [facility] History of Past illness Narrative* Problem Noted Date Resolved Date Diabetes mellitus 11/17/2015 Overview: * Type (07/23/1989): dx type 2 diabetes. (): C-peptide 1.8 ng/ml * Control hx (): HbA1c = 14.8% (): LkQ2w=72.7% (): FtM3s=6.9% (): DpJ3o=8.2% (): MkG5c=6.6% (): QhM6w=8.1% (): OzP4n=8.1% (): IwW0j=2.7% (09/28/09): OoM2y=9.4% (04/23/10): FhP0c=7.4% (09/26/10): GrJ9x=0.5% (01/14/11): AjS1d=1.8% (04/15/11): TkS1a=6.2% * Eye hx (10/2005 date approx): exam Dr. Calvin. No DM changes per pt, f/u q6mo because of glaucoma, yearly for DM. (): my exam single microaneurysm on right (): no DM changes per pt, exam Dr. Calvin (): exam Dr. Calvin. Moderate non proliferative retinopathy bilat, RTC in 1 yr (): exam Dr. Calvin, in need of laser intervention in right eye (): focal laser on on right eye, Dr. Chan? (03/04/10): mild [employer] bilat, RTC 1 yr, exam Dr. Calvin (12/21/10): exam Dr. Evans, mild [employer] stable, RTC 1 yr * Neuro hx (04/19/11): no resting acral dysesthesias. Gets sweaty > shaky with low sugars. * Renal hx (): urine albumin=18 mcg/mg creat (): urine albumin=6 mcg/mg creat (): urine albumin=16 mcg/mg creat (09/28/09): urine albunmin=16 mcg/mg creat (01/14/11): urine albumin=25 mcg/mg creat * Vascular hx (): ynvr=340, TG=81, HDL=54, nCFT=854 (): ijlf=720, TG=45, HDL=51, dLDL=66 (): aexe=736, TG=46, HDL=50, dLDL=76 (04/23/10): yvsy=707, TG=45, HDL=65, cLDL=62, GI=557, ALT=13 (04/26/10): no hx [place], stroke, claudication. documented as of this encounter (statuses as of 11/02/2022) [facility] History of Past illness Narrative* Problem Noted Date Resolved Date Diabetes mellitus 11/17/2015 Overview: * Type (07/[birth year]/1989): dx type 2 diabetes. (): C-peptide 1.8 ng/ml * Control hx (): HbA1c = 14.8% (): TcX2v=33.7% (): FqK3j=7.9% (): EdG0b=2.2% (): YnW8k=3.6% (): NnI6s=9.1% (): BjZ2a=8.1% (): DwN8x=8.7% (09/28/09): YnH6h=8.4% (04/23/10): XhD5t=0.4% (09/26/10): FdB2h=6.5% (01/14/11): JpX4a=6.8% (04/15/11): RgP9i=7.2% * Eye hx (10/2005 date approx): exam Dr. Calvin. No DM changes per pt, f/u q6mo because of glaucoma, yearly for DM. (): my exam single microaneurysm on right (): no DM changes per pt, exam Dr. Calvin (): exam Dr. Calvin. Moderate non proliferative retinopathy bilat, RTC in 1 yr (): exam Dr. Calvin, in need of laser intervention in right eye (): focal laser on on right eye, Dr. Chan? (03/04/10): mild [employer] bilat, RTC 1 yr, exam Dr. Calvin (12/21/10): exam Dr. Evans, mild [employer] stable, RTC 1 yr * Neuro hx (04/19/11): no resting acral dysesthesias. Gets sweaty > shaky with low sugars. * Renal hx (): urine albumin=18 mcg/mg creat (): urine albumin=6 mcg/mg creat (): urine albumin=16 mcg/mg creat (09/28/09): urine albunmin=16 mcg/mg creat (01/14/11): urine albumin=25 mcg/mg creat * Vascular hx (): esyv=457, TG=81, HDL=54, vZNR=242 (): mobn=365, TG=45, HDL=51, dLDL=66 (): siwv=364, TG=46, HDL=50, dLDL=76 (04/23/10): cibp=234, TG=45, HDL=65, cLDL=62, HH=116, ALT=13 (04/26/10): no hx [place], stroke, claudication. documented as of this encounter (statuses as of 11/13/2022) [facility] History of Past illness Narrative* Problem Noted Date Resolved Date Diabetes mellitus 11/17/2015 Overview: * Type (07/[birth year]/1989): dx type 2 diabetes. (): C-peptide 1.8 ng/ml * Control hx (): HbA1c = 14.8% (): ZcQ1j=29.7% (): SzC9w=0.9% (): UgZ4t=2.2% (): YgY4n=2.6% (): DlI0r=6.1% (): TvA6c=9.1% (): DoK3a=9.7% (09/28/09): UrX2r=9.4% (04/23/10): AiF4e=5.4% (09/26/10): IhT4z=7.5% (01/14/11): GaS4a=3.8% (04/15/11): WjU2t=8.2% * Eye hx (10/2005 date approx): exam Dr. Calvin. No DM changes per pt, f/u q6mo because of glaucoma, yearly for DM. (): my exam single microaneurysm on right (): no DM changes per pt, exam Dr. Calvin (): exam Dr. Calvin. Moderate non proliferative retinopathy bilat, RTC in 1 yr (): exam Dr. Calvin, in need of laser intervention in right eye (): focal laser on on right eye, Dr. Chan? (03/04/10): mild [employer] bilat, RTC 1 yr, exam Dr. Calvin (12/21/10): exam Dr. Evans, mild [employer] stable, RTC 1 yr * Neuro hx (04/19/11): no resting acral dysesthesias. Gets sweaty > shaky with low sugars. * Renal hx (): urine albumin=18 mcg/mg creat (): urine albumin=6 mcg/mg creat (): urine albumin=16 mcg/mg creat (09/28/09): urine albunmin=16 mcg/mg creat (01/14/11): urine albumin=25 mcg/mg creat * Vascular hx (): elsd=957, TG=81, HDL=54, qNMK=359 (): euzk=683, TG=45, HDL=51, dLDL=66 (): mhcv=573, TG=46, HDL=50, dLDL=76 (04/23/10): wnvt=807, TG=45, HDL=65, cLDL=62, WQ=842, ALT=13 (04/26/10): no hx [place], stroke, claudication. documented as of this encounter (statuses as of 11/30/2022) [facility] History of Past illness Narrative* Problem Noted Date Resolved Date Diabetes mellitus 11/17/2015 Overview: * Type (07/23/1989): dx type 2 diabetes. (): C-peptide 1.8 ng/ml * Control hx (): HbA1c = 14.8% (): VjQ7f=05.7% (): LuL9m=0.9% (): GlM2f=3.2% (): PwV4b=1.6% (): SwL6u=2.1% (): TqF5o=4.1% (): GkQ1t=8.7% (09/28/09): MoV7a=3.4% (04/23/10): IcZ8k=2.4% (09/26/10): XqC4d=4.5% (01/14/11): QfF3v=7.8% (04/15/11): EiQ6a=8.2% * Eye hx (10/2005 date approx): exam Dr. Calvin. No DM changes per pt, f/u q6mo because of glaucoma, yearly for DM. (): my exam single microaneurysm on right (): no DM changes per pt, exam Dr. Calvin (): exam Dr. Calvin. Moderate non proliferative retinopathy bilat, RTC in 1 yr (): exam Dr. Calvin, in need of laser intervention in right eye (): focal laser on on right eye, Dr. Chan? (03/04/10): mild [employer] bilat, RTC 1 yr, exam Dr. Calvin (12/21/10): exam Dr. Evans, mild [employer] stable, RTC 1 yr * Neuro hx (04/19/11): no resting acral dysesthesias. Gets sweaty > shaky with low sugars. * Renal hx (): urine albumin=18 mcg/mg creat (): urine albumin=6 mcg/mg creat (): urine albumin=16 mcg/mg creat (09/28/09): urine albunmin=16 mcg/mg creat (01/14/11): urine albumin=25 mcg/mg creat * Vascular hx (): ijnr=359, TG=81, HDL=54, tOET=632 (): fmuc=589, TG=45, HDL=51, dLDL=66 (): eoki=535, TG=46, HDL=50, dLDL=76 (04/23/10): hdmk=450, TG=45, HDL=65, cLDL=62, MS=662, ALT=13 (04/26/10): no hx [place], stroke, claudication. documented as of this encounter (statuses as of 11/30/2022) [facility]04-27-2016 History of Past illness Narrative* Problem Noted Date Resolved Date Diabetes mellitus 11/17/2015 Overview: * Type (07/23/1989): dx type 2 diabetes. (): C-peptide 1.8 ng/ml * Control hx (): HbA1c = 14.8% (): JwW3w=40.7% (): OuW8m=4.9% (): IpF9q=0.2% (): TxT1e=5.6% (): UcT7v=8.1% (): JhQ2e=0.1% (): UcT0w=2.7% (09/28/09): XkX1g=8.4% (04/23/10): KsW0r=8.4% (09/26/10): EfK4d=2.5% (01/14/11): IiN3j=6.8% (04/15/11): WhT7q=1.2% * Eye hx (10/2005 date approx): exam Dr. Calvin. No DM changes per pt, f/u q6mo because of glaucoma, yearly for DM. (): my exam single microaneurysm on right (): no DM changes per pt, exam Dr. Calvin (): exam Dr. Calvin. Moderate non proliferative retinopathy bilat, RTC in 1 yr (): exam Dr. Calvin, in need of laser intervention in right eye (): focal laser on on right eye, Dr. Chan? (03/04/10): mild [employer] bilat, RTC 1 yr, exam Dr. Calvin (12/21/10): exam Dr. Evans, mild [employer] stable, RTC 1 yr * Neuro hx (04/19/11): no resting acral dysesthesias. Gets sweaty > shaky with low sugars. * Renal hx (): urine albumin=18 mcg/mg creat (): urine albumin=6 mcg/mg creat (): urine albumin=16 mcg/mg creat (09/28/09): urine albunmin=16 mcg/mg creat (01/14/11): urine albumin=25 mcg/mg creat * Vascular hx (): wimt=775, TG=81, HDL=54, fPTW=058 (): akow=373, TG=45, HDL=51, dLDL=66 (): nkpi=770, TG=46, HDL=50, dLDL=76 (04/23/10): woks=998, TG=45, HDL=65, cLDL=62, OD=626, ALT=13 (04/26/10): no hx [place], stroke, claudication. documented as of this encounter (statuses as of 12/04/2022) [facility]04-27-2016 History of Past illness Narrative* Problem Noted Date Resolved Date Diabetes mellitus 11/17/2015 Overview: * Type (07/23/1989): dx type 2 diabetes. (): C-peptide 1.8 ng/ml * Control hx (): HbA1c = 14.8% (): KgJ7l=01.7% (): HjG4y=9.9% (): SfV0q=8.2% (): YfD9j=0.6% (): SyH6f=4.1% (): IkU0t=1.1% (): DmN7p=2.7% (09/28/09): UxQ6s=7.4% (04/23/10): PbS5p=0.4% (09/26/10): DgZ3s=1.5% (01/14/11): YlZ0d=0.8% (04/15/11): UmM0h=3.2% * Eye hx (10/2005 date approx): exam Dr. Clavin. No DM changes per pt, f/u q6mo because of glaucoma, yearly for DM. (): my exam single microaneurysm on right (): no DM changes per pt, exam Dr. Calvin (): exam Dr. Calvin. Moderate non proliferative retinopathy bilat, RTC in 1 yr (): exam Dr. Calvin, in need of laser intervention in right eye (): focal laser on on right eye, Dr. Chan? (03/04/10): mild [employer] bilat, RTC 1 yr, exam Dr. Calvin (12/21/10): exam Dr. Evans, mild [employer] stable, RTC 1 yr * Neuro hx (04/19/11): no resting acral dysesthesias. Gets sweaty > shaky with low sugars. * Renal hx (): urine albumin=18 mcg/mg creat (): urine albumin=6 mcg/mg creat (): urine albumin=16 mcg/mg creat (09/28/09): urine albunmin=16 mcg/mg creat (01/14/11): urine albumin=25 mcg/mg creat * Vascular hx (): vfyi=661, TG=81, HDL=54, oMUG=587 (): agss=684, TG=45, HDL=51, dLDL=66 (): rbeu=434, TG=46, HDL=50, dLDL=76 (04/23/10): bhgy=134, TG=45, HDL=65, cLDL=62, BQ=654, ALT=13 (04/26/10): no hx [place], stroke, claudication. documented as of this encounter (statuses as of 12/26/2022) [facility]04-[facility]-2016 History of Past illness Narrative* Problem Noted Date Resolved Date Diabetes mellitus 11/17/2015 Overview: * Type ([birth year]/23/1989): dx type 2 diabetes. (): C-peptide 1.8 ng/ml * Control hx (): HbA1c = 14.8% (): KuC4z=31.7% (): HtN6a=2.9% (): ZoG1y=6.2% (): MaL5z=8.6% (): SbD0t=5.1% (): JvH2j=4.1% (): LmO4k=1.7% (09/28/09): DuK7y=0.4% (04/23/10): VzK4o=2.4% (09/26/10): OdV9g=6.5% (01/14/11): UgH2d=3.8% (04/15/11): CkI4d=1.2% * Eye hx (10/2005 date approx): exam Dr. Calvin. No DM changes per pt, f/u q6mo because of glaucoma, yearly for DM. (): my exam single microaneurysm on right (): no DM changes per pt, exam Dr. Calvin (): exam Dr. Calvin. Moderate non proliferative retinopathy bilat, RTC in 1 yr (): exam Dr. Calvin, in need of laser intervention in right eye (): focal laser on on right eye, Dr. Chan? (03/04/10): mild [employer] bilat, RTC 1 yr, exam Dr. Calvin (12/21/10): exam Dr. Evans, mild [employer] stable, RTC 1 yr * Neuro hx (04/19/11): no resting acral dysesthesias. Gets sweaty > shaky with low sugars. * Renal hx (): urine albumin=18 mcg/mg creat (): urine albumin=6 mcg/mg creat (): urine albumin=16 mcg/mg creat (09/28/09): urine albunmin=16 mcg/mg creat (01/14/11): urine albumin=25 mcg/mg creat * Vascular hx (): zrym=260, TG=81, HDL=54, kJWA=337 (): anll=847, TG=45, HDL=51, dLDL=66 (): vscy=315, TG=46, HDL=50, dLDL=76 (04/23/10): ksxn=358, TG=45, HDL=65, cLDL=62, TZ=011, ALT=13 (04/26/10): no hx [place], stroke, claudication. documented as of this encounter (statuses as of 01/09/2023) [facility]04-[facility]-2016 History of Past illness Narrative* Problem Noted Date Resolved Date Diabetes mellitus 11/17/2015 Overview: * Type (07/23/1989): dx type 2 diabetes. (): C-peptide 1.8 ng/ml * Control hx (): HbA1c = 14.8% (): IjQ9f=44.7% (): LcE4h=2.9% (): PzR7w=1.2% (): YjY4f=9.6% (): WiP3x=9.1% (): CgL5b=6.1% (): BkP0i=3.7% (09/28/09): RhF6g=9.4% (04/23/10): NoJ6u=0.4% (09/26/10): WcI8o=0.5% (01/14/11): TjV2l=6.8% (04/15/11): RfY1l=7.2% * Eye hx (10/2005 date approx): exam Dr. Calvin. No DM changes per pt, f/u q6mo because of glaucoma, yearly for DM. (): my exam single microaneurysm on right (): no DM changes per pt, exam Dr. Calvin (): exam Dr. Calvin. Moderate non proliferative retinopathy bilat, RTC in 1 yr (): exam Dr. Calvin, in need of laser intervention in right eye (): focal laser on on right eye, Dr. Chan? (03/04/10): mild [employer] bilat, RTC 1 yr, exam Dr. Calvin (12/21/10): exam Dr. Evans, mild [employer] stable, RTC 1 yr * Neuro hx (04/19/11): no resting acral dysesthesias. Gets sweaty > shaky with low sugars. * Renal hx (): urine albumin=18 mcg/mg creat (): urine albumin=6 mcg/mg creat (): urine albumin=16 mcg/mg creat (09/28/09): urine albunmin=16 mcg/mg creat (01/14/11): urine albumin=25 mcg/mg creat * Vascular hx (): tsbx=159, TG=81, HDL=54, kHTS=984 (): cewk=252, TG=45, HDL=51, dLDL=66 (): ocun=053, TG=46, HDL=50, dLDL=76 (04/23/10): qham=567, TG=45, HDL=65, cLDL=62, OA=341, ALT=13 (04/26/10): no hx [place], stroke, claudication. documented as of this encounter (statuses as of 01/19/2023) [facility]04[facility]2016 History of Past illness Narrative* Problem Noted Date Diagnosed Date Resolved Date Diabetes mellitus 11/17/2015 Overview: * Type (07/23/1989): dx type 2 diabetes. (): C-peptide 1.8 ng/ml * Control hx (): HbA1c = 14.8% (): EjP6e=34.7% (): FcW8b=4.9% (): YpJ7v=8.2% (): RvU8q=4.6% (): VgQ3p=2.1% (): KbM9d=3.1% (): DeP5n=8.7% (09/28/09): WzC9m=3.4% (04/23/10): YiL6k=7.4% (09/26/10): CrS9j=3.5% (01/14/11): KoE0c=1.8% (04/15/11): TgC0s=5.2% * Eye hx (10/2005 date approx): exam Dr. Calvin. No DM changes per pt, f/u q6mo because of glaucoma, yearly for DM. (): my exam single microaneurysm on right (): no DM changes per pt, exam Dr. Calvin (): exam Dr. Calvin. Moderate non proliferative retinopathy bilat, RTC in 1 yr (): exam Dr. Calvin, in need of laser intervention in right eye (): focal laser on on right eye, Dr. Chan? (03/04/10): mild [employer] bilat, RTC 1 yr, exam Dr. Calvin (12/21/10): exam Dr. Evans, mild [employer] stable, RTC 1 yr * Neuro hx (04/19/11): no resting acral dysesthesias. Gets sweaty > shaky with low sugars. * Renal hx (): urine albumin=18 mcg/mg creat (): urine albumin=6 mcg/mg creat (): urine albumin=16 mcg/mg creat (09/28/09): urine albunmin=16 mcg/mg creat (01/14/11): urine albumin=25 mcg/mg creat * Vascular hx (): mqjq=677, TG=81, HDL=54, mEGS=529 (): wdmn=779, TG=45, HDL=51, dLDL=66 (): zpsk=655, TG=46, HDL=50, dLDL=76 (04/23/10): xqil=260, TG=45, HDL=65, cLDL=62, QT=048, ALT=13 (04/26/10): no hx [place], stroke, claudication. documented as of this encounter (statuses as of 02/02/2023) [facility]2016 History of Past illness Narrative* Problem Noted Date Diagnosed Date Resolved Date Diabetes mellitus 11/17/2015 Overview: * Type (07/23/1989): dx type 2 diabetes. (): C-peptide 1.8 ng/ml * Control hx (): HbA1c = 14.8% (): TdV1v=79.7% (): FfX0v=8.9% (): KsQ3b=6.2% (): WdX7l=6.6% (): GaF8g=7.1% (): XxT6k=1.1% (): QqI8g=0.7% (09/28/09): AdF5u=0.4% (04/23/10): YkS8i=7.4% (09/26/10): UfF6p=6.5% (01/14/11): MxU7p=7.8% (04/15/11): QfI5g=1.2% * Eye hx (10/2005 date approx): exam Dr. Calvin. No DM changes per pt, f/u q6mo because of glaucoma, yearly for DM. (): my exam single microaneurysm on right (): no DM changes per pt, exam Dr. Calvin (): exam Dr. Calvin. Moderate non proliferative retinopathy bilat, RTC in 1 yr (): exam Dr. Calvin, in need of laser intervention in right eye (): focal laser on on right eye, Dr. Chan? (03/04/10): mild [employer] bilat, RTC 1 yr, exam Dr. Calvin (12/21/10): exam Dr. Evans, mild [employer] stable, RTC 1 yr * Neuro hx (04/19/11): no resting acral dysesthesias. Gets sweaty > shaky with low sugars. * Renal hx (): urine albumin=18 mcg/mg creat (): urine albumin=6 mcg/mg creat (): urine albumin=16 mcg/mg creat (09/28/09): urine albunmin=16 mcg/mg creat (01/14/11): urine albumin=25 mcg/mg creat * Vascular hx (): lwft=038, TG=81, HDL=54, xZYP=272 (): wxph=556, TG=45, HDL=51, dLDL=66 (): foll=838, TG=46, HDL=50, dLDL=76 (04/23/10): awsn=233, TG=45, HDL=65, cLDL=62, IO=251, ALT=13 (04/26/10): no hx [place], stroke, claudication. documented as of this encounter (statuses as of 03/21/2023) [facility] History of Past illness Narrative* Problem Noted Date Diagnosed Date Resolved Date Diabetes mellitus 11/17/2015 Overview: * Type (07/23/1989): dx type 2 diabetes. (): C-peptide 1.8 ng/ml * Control hx (): HbA1c = 14.8% (): IiQ8u=72.7% (): InY4b=8.9% (): VqY3o=5.2% (): EsH5p=6.6% (): LhL5b=1.1% (): BaW5i=4.1% (): FfI7i=9.7% (09/28/09): LhQ2l=5.4% (04/23/10): UeI1s=4.4% (09/26/10): SfH0j=8.5% (01/14/11): RhZ6o=2.8% (04/15/11): UlK9h=6.2% * Eye hx (10/2005 date approx): exam Dr. Calvin. No DM changes per pt, f/u q6mo because of glaucoma, yearly for DM. (): my exam single microaneurysm on right (): no DM changes per pt, exam Dr. Calvin (): exam Dr. Calvin. Moderate non proliferative retinopathy bilat, RTC in 1 yr (): exam Dr. Calvin, in need of laser intervention in right eye (): focal laser on on right eye, Dr. Chan? (03/04/10): mild [employer] bilat, RTC 1 yr, exam Dr. Calvin (12/21/10): exam Dr. Evans, mild [employer] stable, RTC 1 yr * Neuro hx (04/19/11): no resting acral dysesthesias. Gets sweaty > shaky with low sugars. * Renal hx (): urine albumin=18 mcg/mg creat (): urine albumin=6 mcg/mg creat (): urine albumin=16 mcg/mg creat (09/28/09): urine albunmin=16 mcg/mg creat (01/14/11): urine albumin=25 mcg/mg creat * Vascular hx (): kdjg=880, TG=81, HDL=54, xXDJ=588 (): fyhs=535, TG=45, HDL=51, dLDL=66 (): ggkq=677, TG=46, HDL=50, dLDL=76 (04/23/10): kfhr=697, TG=45, HDL=65, cLDL=62, TF=544, ALT=13 (04/26/10): no hx [place], stroke, claudication. documented as of this encounter (statuses as of 04/23/2023) [facility] History of Past illness Narrative* Problem Noted Date Diagnosed Date Resolved Date Diabetes mellitus 11/17/2015 Overview: * Type (07/23/1989): dx type 2 diabetes. (): C-peptide 1.8 ng/ml * Control hx (): HbA1c = 14.8% (): DuY2g=64.7% (): TfD2r=1.9% (): MhO8g=9.2% (): QaM1p=6.6% (): JaB9h=3.1% (): KmG9w=4.1% (): AnJ9b=7.7% (09/28/09): DrZ0p=2.4% (04/23/10): XfE8k=9.4% (09/26/10): XjM6u=9.5% (01/14/11): EqF3e=7.8% (04/15/11): RqK5r=4.2% * Eye hx (10/2005 date approx): exam Dr. Calvin. No DM changes per pt, f/u q6mo because of glaucoma, yearly for DM. (): my exam single microaneurysm on right (): no DM changes per pt, exam Dr. Calvin (): exam Dr. Calvin. Moderate non proliferative retinopathy bilat, RTC in 1 yr (): exam Dr. Calvin, in need of laser intervention in right eye (): focal laser on on right eye, Dr. Chan? (03/04/10): mild [employer] bilat, RTC 1 yr, exam Dr. Calvin (12/21/10): exam Dr. Evans, mild [employer] stable, RTC 1 yr * Neuro hx (04/19/11): no resting acral dysesthesias. Gets sweaty > shaky with low sugars. * Renal hx (): urine albumin=18 mcg/mg creat (): urine albumin=6 mcg/mg creat (): urine albumin=16 mcg/mg creat (09/28/09): urine albunmin=16 mcg/mg creat (01/14/11): urine albumin=25 mcg/mg creat * Vascular hx (): iswp=521, TG=81, HDL=54, yUGT=953 (): gcpl=865, TG=45, HDL=51, dLDL=66 (): wxuw=617, TG=46, HDL=50, dLDL=76 (04/23/10): wkmo=973, TG=45, HDL=65, cLDL=62, KZ=747, ALT=13 (04/26/10): no hx [place], stroke, claudication. documented as of this encounter (statuses as of 05/17/2023) [facility]2016 History of Past illness Narrative* Problem Noted Date Diagnosed Date Resolved Date Diabetes mellitus 11/17/2015 Overview: * Type (07/23/1989): dx type 2 diabetes. (): C-peptide 1.8 ng/ml * Control hx (): HbA1c = 14.8% (): WoB8z=57.7% (): HsP0g=7.9% (): ZwO0c=3.2% (): OkO4a=9.6% (): CjK6i=5.1% (): WiU8c=2.1% (): McK0b=7.7% (09/28/09): MeU1m=1.4% (04/23/10): DiQ5q=1.4% (09/26/10): YgN7t=6.5% (01/14/11): JzH4h=6.8% (04/15/11): WuX1n=8.2% * Eye hx (10/2005 date approx): exam Dr. Calvin. No DM changes per pt, f/u q6mo because of glaucoma, yearly for DM. (): my exam single microaneurysm on right (): no DM changes per pt, exam Dr. Calvin (): exam Dr. Calvin. Moderate non proliferative retinopathy bilat, RTC in 1 yr (): exam Dr. Calvin, in need of laser intervention in right eye (): focal laser on on right eye, Dr. Chan? (03/04/10): mild [employer] bilat, RTC 1 yr, exam Dr. Calvin (12/21/10): exam Dr. Evans, mild [employer] stable, RTC 1 yr * Neuro hx (04/19/11): no resting acral dysesthesias. Gets sweaty > shaky with low sugars. * Renal hx (): urine albumin=18 mcg/mg creat (): urine albumin=6 mcg/mg creat (): urine albumin=16 mcg/mg creat (09/28/09): urine albunmin=16 mcg/mg creat (01/14/11): urine albumin=25 mcg/mg creat * Vascular hx (): eokb=260, TG=81, HDL=54, qWWJ=507 (): emqt=794, TG=45, HDL=51, dLDL=66 (): mwpu=576, TG=46, HDL=50, dLDL=76 (04/23/10): affk=087, TG=45, HDL=65, cLDL=62, CH=485, ALT=13 (04/26/10): no hx [place], stroke, claudication. documented as of this encounter (statuses as of 05/17/2023) [facility] History of Past illness Narrative* Problem Noted Date Diagnosed Date Resolved Date Diabetes mellitus 11/17/2015 Overview: * Type (07/23/1989): dx type 2 diabetes. (): C-peptide 1.8 ng/ml * Control hx (): HbA1c = 14.8% (): KqF7i=68.7% (): MkL8l=7.9% (): HaX8z=2.2% (): WyO2g=4.6% (): MxW3h=9.1% (): FuX3e=0.1% (): CcH6t=5.7% (09/28/09): AyM4v=0.4% (04/23/10): VrW1f=3.4% (09/26/10): AyQ9z=2.5% (01/14/11): HvN9o=4.8% (04/15/11): DvC1b=1.2% * Eye hx (10/2005 date approx): exam Dr. Calvin. No DM changes per pt, f/u q6mo because of glaucoma, yearly for DM. (): my exam single microaneurysm on right (): no DM changes per pt, exam Dr. Calvin (): exam Dr. Calvin. Moderate non proliferative retinopathy bilat, RTC in 1 yr (): exam Dr. Calvin, in need of laser intervention in right eye (): focal laser on on right eye, Dr. Chan? (03/04/10): mild [employer] bilat, RTC 1 yr, exam Dr. Calvin (12/21/10): exam Dr. Evans, mild [employer] stable, RTC 1 yr * Neuro hx (04/19/11): no resting acral dysesthesias. Gets sweaty > shaky with low sugars. * Renal hx (): urine albumin=18 mcg/mg creat (): urine albumin=6 mcg/mg creat (): urine albumin=16 mcg/mg creat (09/28/09): urine albunmin=16 mcg/mg creat (01/14/11): urine albumin=25 mcg/mg creat * Vascular hx (): oaga=428, TG=81, HDL=54, rNDZ=625 (): ocsn=444, TG=45, HDL=51, dLDL=66 (): lzyd=269, TG=46, HDL=50, dLDL=76 (04/23/10): mdkt=749, TG=45, HDL=65, cLDL=62, SM=869, ALT=13 (04/26/10): no hx [place], stroke, claudication. documented as of this encounter (statuses as of 05/23/2023) [facility] History of Past illness Narrative* Problem Noted Date Diagnosed Date Resolved Date Diabetes mellitus 11/17/2015 Overview: * Type (07/23/1989): dx type 2 diabetes. (): C-peptide 1.8 ng/ml * Control hx (): HbA1c = 14.8% (): FmC3f=86.7% (): NmH8i=9.9% (): LwY5k=3.2% (): GnP8b=8.6% (): McP6w=5.1% (): VbR5q=1.1% (): VuN1t=1.7% (09/28/09): FfW0d=8.4% (04/23/10): EzN9k=1.4% (09/26/10): FzP9l=9.5% (01/14/11): GiD9j=8.8% (04/15/11): HeV4t=1.2% * Eye hx (10/2005 date approx): exam Dr. Calvin. No DM changes per pt, f/u q6mo because of glaucoma, yearly for DM. (): my exam single microaneurysm on right (): no DM changes per pt, exam Dr. Calvin (): exam Dr. Calvin. Moderate non proliferative retinopathy bilat, RTC in 1 yr (): exam Dr. Calvin, in need of laser intervention in right eye (): focal laser on on right eye, Dr. Chan? (03/04/10): mild [employer] bilat, RTC 1 yr, exam Dr. Calvin (12/21/10): exam Dr. Evans, mild [employer] stable, RTC 1 yr * Neuro hx (04/19/11): no resting acral dysesthesias. Gets sweaty > shaky with low sugars. * Renal hx (): urine albumin=18 mcg/mg creat (): urine albumin=6 mcg/mg creat (): urine albumin=16 mcg/mg creat (09/28/09): urine albunmin=16 mcg/mg creat (01/14/11): urine albumin=25 mcg/mg creat * Vascular hx (): lbsh=413, TG=81, HDL=54, tUFB=770 (): afkj=434, TG=45, HDL=51, dLDL=66 (): ghpk=962, TG=46, HDL=50, dLDL=76 (04/23/10): mnnc=816, TG=45, HDL=65, cLDL=62, YY=622, ALT=13 (04/26/10): no hx [place], stroke, claudication. documented as of this encounter (statuses as of 05/31/2023) [facility] History of Past illness Narrative* Problem Noted Date Diagnosed Date Resolved Date Diabetes mellitus 11/17/2015 Overview: * Type (07/23/1989): dx type 2 diabetes. (): C-peptide 1.8 ng/ml * Control hx (): HbA1c = 14.8% (): CaV8t=29.7% (): GsB4l=9.9% (): XvF9j=7.2% (): YlS5n=7.6% (): IpM0u=9.1% (): XxP2v=3.1% (): LfK3w=2.7% (09/28/09): CeY6f=8.4% (04/23/10): VsT0m=0.4% (09/26/10): RuW9h=3.5% (01/14/11): VcT7h=8.8% (04/15/11): CrV1n=2.2% * Eye hx (10/2005 date approx): exam Dr. Calvin. No DM changes per pt, f/u q6mo because of glaucoma, yearly for DM. (): my exam single microaneurysm on right (): no DM changes per pt, exam Dr. Calvin (): exam Dr. Calvin. Moderate non proliferative retinopathy bilat, RTC in 1 yr (): exam Dr. Calvin, in need of laser intervention in right eye (): focal laser on on right eye, Dr. Chan? (03/04/10): mild [employer] bilat, RTC 1 yr, exam Dr. Calvin (12/21/10): exam Dr. Evans, mild [employer] stable, RTC 1 yr * Neuro hx (04/19/11): no resting acral dysesthesias. Gets sweaty > shaky with low sugars. * Renal hx (): urine albumin=18 mcg/mg creat (): urine albumin=6 mcg/mg creat (): urine albumin=16 mcg/mg creat (09/28/09): urine albunmin=16 mcg/mg creat (01/14/11): urine albumin=25 mcg/mg creat * Vascular hx (): rtvv=892, TG=81, HDL=54, bAAH=006 (): cyzc=674, TG=45, HDL=51, dLDL=66 (): meot=894, TG=46, HDL=50, dLDL=76 (04/23/10): djlx=887, TG=45, HDL=65, cLDL=62, TV=536, ALT=13 (04/26/10): no hx [place], stroke, claudication. documented as of this encounter (statuses as of 07/05/2023) [facility] History of Past illness Narrative* Problem Noted Date Diagnosed Date Resolved Date Diabetes mellitus 11/17/2015 Overview: * Type (07/23/1989): dx type 2 diabetes. (): C-peptide 1.8 ng/ml * Control hx (): HbA1c = 14.8% (): JdP1l=14.7% (): TdP5y=2.9% (): ZxB3a=7.2% (): UsK5c=9.6% (): ZkE2j=7.1% (): YuO9f=1.1% (): YmR3u=2.7% (09/28/09): QqF9g=9.4% (04/23/10): OzC9x=4.4% (09/26/10): QuQ7k=2.5% (01/14/11): DxV3q=1.8% (04/15/11): QxP5p=8.2% * Eye hx (10/2005 date approx): exam Dr. Calvin. No DM changes per pt, f/u q6mo because of glaucoma, yearly for DM. (): my exam single microaneurysm on right (): no DM changes per pt, exam Dr. Calvin (): exam Dr. Calvin. Moderate non proliferative retinopathy bilat, RTC in 1 yr (): exam Dr. Calvin, in need of laser intervention in right eye (): focal laser on on right eye, Dr. Chan? (03/04/10): mild [employer] bilat, RTC 1 yr, exam Dr. Calvin (12/21/10): exam Dr. Evans, mild [employer] stable, RTC 1 yr * Neuro hx (04/19/11): no resting acral dysesthesias. Gets sweaty > shaky with low sugars. * Renal hx (): urine albumin=18 mcg/mg creat (): urine albumin=6 mcg/mg creat (): urine albumin=16 mcg/mg creat (09/28/09): urine albunmin=16 mcg/mg creat (01/14/11): urine albumin=25 mcg/mg creat * Vascular hx (): dnee=125, TG=81, HDL=54, pPBE=229 (): oxtn=742, TG=45, HDL=51, dLDL=66 (): raxl=515, TG=46, HDL=50, dLDL=76 (04/23/10): bsvo=690, TG=45, HDL=65, cLDL=62, UU=981, ALT=13 (04/26/10): no hx [place], stroke, claudication. documented as of this encounter (statuses as of 07/13/2023) [facility] History of Past illness Narrative* Problem Noted Date Diagnosed Date Resolved Date Diabetes mellitus 11/17/2015 Overview: * Type (07/23/1989): dx type 2 diabetes. (): C-peptide 1.8 ng/ml * Control hx (): HbA1c = 14.8% (): UdS5d=47.7% (): PvZ7x=7.9% (): JjD7v=9.2% (): PoB4a=9.6% (): QmC9y=7.1% (): ZbQ9b=7.1% (): DzG6j=2.7% (09/28/09): NrK3n=2.4% (04/23/10): PdX2u=3.4% (09/26/10): MpC8v=8.5% (01/14/11): BjU3a=0.8% (04/15/11): EkV2j=6.2% * Eye hx (10/2005 date approx): exam Dr. Calvin. No DM changes per pt, f/u q6mo because of glaucoma, yearly for DM. (): my exam single microaneurysm on right (): no DM changes per pt, exam Dr. Calvin (): exam Dr. Calvin. Moderate non proliferative retinopathy bilat, RTC in 1 yr (): exam Dr. Calvin, in need of laser intervention in right eye (): focal laser on on right eye, Dr. Chan? (03/04/10): mild [employer] bilat, RTC 1 yr, exam Dr. Calvin (12/21/10): exam Dr. Evans, mild [employer] stable, RTC 1 yr * Neuro hx (04/19/11): no resting acral dysesthesias. Gets sweaty > shaky with low sugars. * Renal hx (): urine albumin=18 mcg/mg creat (): urine albumin=6 mcg/mg creat (): urine albumin=16 mcg/mg creat (09/28/09): urine albunmin=16 mcg/mg creat (01/14/11): urine albumin=25 mcg/mg creat * Vascular hx (): vmyh=181, TG=81, HDL=54, qNXU=918 (): pmvx=657, TG=45, HDL=51, dLDL=66 (): gveb=779, TG=46, HDL=50, dLDL=76 (04/23/10): pbdf=053, TG=45, HDL=65, cLDL=62, AG=074, ALT=13 (04/26/10): no hx [place], stroke, claudication. documented as of this encounter (statuses as of 08/30/2023) [facility] History of Past illness Narrative* Problem Noted Date Diagnosed Date Resolved Date Diabetes mellitus 11/17/2015 Overview: * Type (07/23/1989): dx type 2 diabetes. (): C-peptide 1.8 ng/ml * Control hx (): HbA1c = 14.8% (): TeM3d=89.7% (): MdH3r=9.9% (): AbG1w=6.2% (): RmQ1v=8.6% (): QeR4d=1.1% (): ZpH2d=8.1% (): ZeK5g=6.7% (09/28/09): GsC7n=8.4% (04/23/10): CkQ2t=8.4% (09/26/10): IfG3z=7.5% (01/14/11): MkC7n=8.8% (04/15/11): ItN0d=3.2% * Eye hx (10/2005 date approx): exam Dr. Calvin. No DM changes per pt, f/u q6mo because of glaucoma, yearly for DM. (): my exam single microaneurysm on right (): no DM changes per pt, exam Dr. Calvin (): exam Dr. Calvin. Moderate non proliferative retinopathy bilat, RTC in 1 yr (): exam Dr. Calvin, in need of laser intervention in right eye (): focal laser on on right eye, Dr. Chan? (03/04/10): mild [employer] bilat, RTC 1 yr, exam Dr. Calvin (12/21/10): exam Dr. Evans, mild [employer] stable, RTC 1 yr * Neuro hx (04/19/11): no resting acral dysesthesias. Gets sweaty > shaky with low sugars. * Renal hx (): urine albumin=18 mcg/mg creat (): urine albumin=6 mcg/mg creat (): urine albumin=16 mcg/mg creat (09/28/09): urine albunmin=16 mcg/mg creat (01/14/11): urine albumin=25 mcg/mg creat * Vascular hx (): majp=695, TG=81, HDL=54, oAWR=029 (): trqd=334, TG=45, HDL=51, dLDL=66 (): kden=700, TG=46, HDL=50, dLDL=76 (04/23/10): xofv=281, TG=45, HDL=65, cLDL=62, WW=348, ALT=13 (04/26/10): no hx [place], stroke, claudication. documented as of this encounter (statuses as of 09/15/2023) [facility]04-27-2016 History of Past illness Narrative* Problem Noted Date Diagnosed Date Resolved Date Diabetes mellitus 11/17/2015 Overview: * Type (07/23/1989): dx type 2 diabetes. (): C-peptide 1.8 ng/ml * Control hx (): HbA1c = 14.8% (): GhG9n=12.7% (): SdJ0u=3.9% (): JoZ9w=4.2% (): GjI0o=0.6% (): TbS8j=1.1% (): DtX0k=3.1% (): IfK8t=1.7% (09/28/09): AqM1w=7.4% (04/23/10): XsF2v=7.4% (09/26/10): OkA8b=0.5% (01/14/11): QnR8j=4.8% (04/15/11): OkT1w=4.2% * Eye hx (10/2005 date approx): exam Dr. Calvin. No DM changes per pt, f/u q6mo because of glaucoma, yearly for DM. (): my exam single microaneurysm on right (): no DM changes per pt, exam Dr. Calvin (): exam Dr. Calvin. Moderate non proliferative retinopathy bilat, RTC in 1 yr (): exam Dr. Calvin, in need of laser intervention in right eye (): focal laser on on right eye, Dr. Chan? (03/04/10): mild [employer] bilat, RTC 1 yr, exam Dr. Calvin (12/21/10): exam Dr. Evans, mild [employer] stable, RTC 1 yr * Neuro hx (04/19/11): no resting acral dysesthesias. Gets sweaty > shaky with low sugars. * Renal hx (): urine albumin=18 mcg/mg creat (): urine albumin=6 mcg/mg creat (): urine albumin=16 mcg/mg creat (09/28/09): urine albunmin=16 mcg/mg creat (01/14/11): urine albumin=25 mcg/mg creat * Vascular hx (): coht=291, TG=81, HDL=54, wZEL=435 (): spaq=884, TG=45, HDL=51, dLDL=66 (): sydb=867, TG=46, HDL=50, dLDL=76 (04/23/10): efgp=643, TG=45, HDL=65, cLDL=62, BE=899, ALT=13 (04/26/10): no hx [place], stroke, claudication. documented as of this encounter (statuses as of 09/20/2023) [facility]04-27-2016 History of Past illness Narrative* Problem Noted Date Diagnosed Date Resolved Date Diabetes mellitus 11/17/2015 Overview: * Type (07/23/1989): dx type 2 diabetes. (): C-peptide 1.8 ng/ml * Control hx (): HbA1c = 14.8% (): DoC2a=06.7% (): ZxY8i=1.9% (): AsS5u=4.2% (): BjF2h=8.6% (): PlQ1c=6.1% (): NkR9f=0.1% (): NtF7y=1.7% (09/28/09): QjR3n=7.4% (04/23/10): PdE4y=2.4% (09/26/10): GqC5e=6.5% (01/14/11): DxX9m=5.8% (04/15/11): AfV1d=6.2% * Eye hx (10/2005 date approx): exam Dr. Calvin. No DM changes per pt, f/u q6mo because of glaucoma, yearly for DM. (): my exam single microaneurysm on right (): no DM changes per pt, exam Dr. Calvin (): exam Dr. Calvin. Moderate non proliferative retinopathy bilat, RTC in 1 yr (): exam Dr. Calvin, in need of laser intervention in right eye (): focal laser on on right eye, Dr. Chan? (03/04/10): mild [employer] bilat, RTC 1 yr, exam Dr. Calvin (12/21/10): exam Dr. Evans, mild [employer] stable, RTC 1 yr * Neuro hx (04/19/11): no resting acral dysesthesias. Gets sweaty > shaky with low sugars. * Renal hx (): urine albumin=18 mcg/mg creat (): urine albumin=6 mcg/mg creat (): urine albumin=16 mcg/mg creat (09/28/09): urine albunmin=16 mcg/mg creat (01/14/11): urine albumin=25 mcg/mg creat * Vascular hx (): wggh=737, TG=81, HDL=54, aNKP=292 (): mpid=305, TG=45, HDL=51, dLDL=66 (): rhbp=146, TG=46, HDL=50, dLDL=76 (04/23/10): fwge=482, TG=45, HDL=65, cLDL=62, EP=187, ALT=13 (04/26/10): no hx [place], stroke, claudication. documented as of this encounter (statuses as of 09/21/2023) [facility]04-27-2016 History of Past illness Narrative* Problem Noted Date Diagnosed Date Resolved Date Diabetes mellitus 11/17/2015 Overview: * Type (07/23/1989): dx type 2 diabetes. (): C-peptide 1.8 ng/ml * Control hx (): HbA1c = 14.8% (): PqG9s=17.7% (): UtD5q=5.9% (): WwU7k=5.2% (): MwX9n=3.6% (): DiB9u=9.1% (): MkI6r=6.1% (): GaL1b=5.7% (09/28/09): NdY6s=3.4% (04/23/10): UjX4h=2.4% (09/26/10): FmA8d=3.5% (01/14/11): NfT7n=4.8% (04/15/11): DeJ0r=6.2% * Eye hx (10/2005 date approx): exam Dr. Calvin. No DM changes per pt, f/u q6mo because of glaucoma, yearly for DM. (): my exam single microaneurysm on right (): no DM changes per pt, exam Dr. Calvin (): exam Dr. Calvin. Moderate non proliferative retinopathy bilat, RTC in 1 yr (): exam Dr. Calvin, in need of laser intervention in right eye (): focal laser on on right eye, Dr. Chan? (03/04/10): mild [employer] bilat, RTC 1 yr, exam Dr. Calvin (12/21/10): exam Dr. Evans, mild [employer] stable, RTC 1 yr * Neuro hx (04/19/11): no resting acral dysesthesias. Gets sweaty > shaky with low sugars. * Renal hx (): urine albumin=18 mcg/mg creat (): urine albumin=6 mcg/mg creat (): urine albumin=16 mcg/mg creat (09/28/09): urine albunmin=16 mcg/mg creat (01/14/11): urine albumin=25 mcg/mg creat * Vascular hx (): ourb=281, TG=81, HDL=54, oATZ=047 (): sirr=139, TG=45, HDL=51, dLDL=66 (): yppb=319, TG=46, HDL=50, dLDL=76 (04/23/10): iuai=909, TG=45, HDL=65, cLDL=62, XQ=597, ALT=13 (04/26/10): no hx [place], stroke, claudication. documented as of this encounter (statuses as of 09/27/2023) [facility] History of Past illness Narrative* Problem Noted Date Diagnosed Date Resolved Date Diabetes mellitus 11/17/2015 Overview: * Type (07/23/1989): dx type 2 diabetes. (): C-peptide 1.8 ng/ml * Control hx (): HbA1c = 14.8% (): KdG9a=13.7% (): WeE9j=9.9% (): VgZ7c=5.2% (): FqB6t=6.6% (): JdL5i=7.1% (): UeK6r=5.1% (): FkW9q=1.7% (09/28/09): MgG0c=5.4% (04/23/10): KxH0t=9.4% (09/26/10): UiC3y=9.5% (01/14/11): LrQ9b=5.8% (04/15/11): RjB0z=4.2% * Eye hx (10/2005 date approx): exam Dr. Calvin. No DM changes per pt, f/u q6mo because of glaucoma, yearly for DM. (): my exam single microaneurysm on right (): no DM changes per pt, exam Dr. Calvin (): exam Dr. Calvin. Moderate non proliferative retinopathy bilat, RTC in 1 yr (): exam Dr. Calvin, in need of laser intervention in right eye (): focal laser on on right eye, Dr. hCan? (03/04/10): mild [employer] bilat, RTC 1 yr, exam Dr. Calvin (12/21/10): exam Dr. Evans, mild [employer] stable, RTC 1 yr * Neuro hx (04/19/11): no resting acral dysesthesias. Gets sweaty > shaky with low sugars. * Renal hx (): urine albumin=18 mcg/mg creat (): urine albumin=6 mcg/mg creat (): urine albumin=16 mcg/mg creat (09/28/09): urine albunmin=16 mcg/mg creat (01/14/11): urine albumin=25 mcg/mg creat * Vascular hx (): nbhd=937, TG=81, HDL=54, zXUT=647 (): uhtn=887, TG=45, HDL=51, dLDL=66 (): rirt=636, TG=46, HDL=50, dLDL=76 (04/23/10): unot=628, TG=45, HDL=65, cLDL=62, TJ=977, ALT=13 (04/26/10): no hx [place], stroke, claudication. documented as of this encounter (statuses as of 10/23/2023) [facility] History of Past illness Narrative* Problem Noted Date Diagnosed Date Resolved Date Diabetes mellitus 11/17/2015 Overview: * Type (07/23/1989): dx type 2 diabetes. (): C-peptide 1.8 ng/ml * Control hx (): HbA1c = 14.8% (): AyM9b=37.7% (): DtL6x=0.9% (): XmX5y=9.2% (): DlS7q=1.6% (): IsK9l=7.1% (): IzV7z=8.1% (): LtP5f=4.7% (09/28/09): XgY7v=0.4% (04/23/10): FfH2j=5.4% (09/26/10): EgJ6w=0.5% (01/14/11): MbU0k=3.8% (04/15/11): ZlB2u=0.2% * Eye hx (10/2005 date approx): exam Dr. Calvin. No DM changes per pt, f/u q6mo because of glaucoma, yearly for DM. (): my exam single microaneurysm on right (): no DM changes per pt, exam Dr. Calvin (): exam Dr. Calvin. Moderate non proliferative retinopathy bilat, RTC in 1 yr (): exam Dr. Calvin, in need of laser intervention in right eye (): focal laser on on right eye, Dr. Chan? (03/04/10): mild [employer] bilat, RTC 1 yr, exam Dr. Calvin (12/21/10): exam Dr. Evans, mild [employer] stable, RTC 1 yr * Neuro hx (04/19/11): no resting acral dysesthesias. Gets sweaty > shaky with low sugars. * Renal hx (): urine albumin=18 mcg/mg creat (): urine albumin=6 mcg/mg creat (): urine albumin=16 mcg/mg creat (09/28/09): urine albunmin=16 mcg/mg creat (01/14/11): urine albumin=25 mcg/mg creat * Vascular hx (): iilu=403, TG=81, HDL=54, oHGI=236 (): cwxk=737, TG=45, HDL=51, dLDL=66 (): yhga=783, TG=46, HDL=50, dLDL=76 (04/23/10): kjjc=278, TG=45, HDL=65, cLDL=62, SL=127, ALT=13 (04/26/10): no hx [place], stroke, claudication. documented as of this encounter (statuses as of 11/09/2023) [facility] note* Diagnosis Type 2 diabetes mellitus with microalbuminuria, with long-term current use of insulin (HCC)- Primary Essential hypertension, benign Skin lesion of back Unspecified disorder of skin and subcutaneous tissue [facility] Diagnosis Type 2 diabetes mellitus with microalbuminuria, with long-term current use of insulin (HCC)- Primary [facility]* Diagnosis Chronic allergic otitis media of right ear- Primary Other and unspecified chronic nonsuppurative otitis media Impacted cerumen of both ears Impacted cerumen [facility]* Diagnosis Type 2 diabetes mellitus with microalbuminuria, with long-term current use of insulin ([facility]) documented in this encounter [facility] note* Diagnosis Encounter for immunization- Primary Need for other specified prophylactic vaccination against single bacterial disease Essential hypertension, benign Type 2 diabetes mellitus with microalbuminuria, with long-term current use of insulin ([facility]) documented in this encounter [facility] note* Diagnosis Chronic allergic otitis media of right ear- Primary Other and unspecified chronic nonsuppurative otitis media [facility] noteNo assessment information availableWKindred Healthcare Work Phone: Evaluation note* Diagnosis Dizziness- Primary Dizziness and giddiness documented in this encounter [facility] note* Diagnosis Type 2 diabetes mellitus with microalbuminuria, with long-term current use of insulin (HCC)- Primary documented in this encounter [facility] note* Diagnosis Type 2 diabetes mellitus with microalbuminuria, with long-term current use of insulin (HCC)- Primary Essential hypertension, benign Pure hypercholesterolemia Vertigo Dizziness and giddiness Encounter for immunization Need for other specified prophylactic vaccination against single bacterial disease [facility] Diagnosis Type 2 diabetes mellitus with microalbuminuria, with long-term current use of insulin (HCC)- Primary [facility] Diagnosis Rash and nonspecific skin eruption- Primary Rash and other nonspecific skin eruption [facility] Diagnosis Impacted cerumen of both ears- Primary Impacted cerumen Hearing loss due to cerumen impaction, bilateral Chronic eczematous otitis externa of right ear [facility] Diagnosis Diabetes mellitus due to underlying condition with microalbuminuria, with long- term current use of insulin (HCC)- Primary Type 2 diabetes mellitus with microalbuminuria, with long-term current use of insulin (HCC) [facility] Diagnosis Benign non-nodular prostatic hyperplasia with lower urinary tract symptoms [facility] Diagnosis Type 2 diabetes mellitus with microalbuminuria, with long-term current use of insulin (HCC)- Primary Encounter for immunization Need for other specified prophylactic vaccination against single bacterial disease Primary hypertension Unspecified essential hypertension Pure hypercholesterolemia BPH with obstruction/lower urinary tract symptoms Hypertrophy of prostate with urinary obstruction and other lower urinary tract symptoms (LUTS) Encounter for screening for malignant neoplasm of prostate Special screening for malignant neoplasm of prostate Essential hypertension, benign [facility] Diagnosis Diabetes mellitus due to underlying condition with microalbuminuria, with long- term current use of insulin (HCC)- Primary [facility] Diagnosis Type 2 diabetes mellitus with microalbuminuria, with long-term current use of insulin (HCC) [facility] Diagnosis Type 2 diabetes mellitus with microalbuminuria, with long-term current use of insulin (HCC)- Primary Primary hypertension Unspecified essential hypertension Hypoglycemia Hypoglycemia, unspecified [facility] Diagnosis Encounter for immunization- Primary Need for other specified prophylactic vaccination against single bacterial disease Need for influenza vaccination Need for prophylactic vaccination and inoculation against influenza [facility]* Diagnosis Type 2 diabetes mellitus with microalbuminuria, with long-term current use of insulin (HCC)- Primary [facility] Diagnosis Type 2 diabetes mellitus with microalbuminuria, with long-term current use of insulin (HCC)- Primary [facility] Diagnosis Type 2 diabetes mellitus with microalbuminuria, with long-term current use of insulin (HCC) [facility]* Diagnosis Type 2 diabetes mellitus with microalbuminuria, with long-term current use of insulin (HCC)- Primary [facility]* Diagnosis Type 2 diabetes mellitus with microalbuminuria, with long-term current use of insulin (HCC)- Primary Benign non-nodular prostatic hyperplasia with lower urinary tract symptoms Chronic pain of right knee Primary hypertension Unspecified essential hypertension Pure hypercholesterolemia Colon cancer screening Special screening for malignant neoplasms, colon [facility] Diagnosis Colon cancer screening Special screening for malignant neoplasms, colon [facility]* Diagnosis Colon cancer screening Special screening for malignant neoplasms, colon [facility]* Diagnosis Type 2 diabetes mellitus with microalbuminuria, with long-term current use of insulin (HCC)- Primary [facility]* Diagnosis Type 2 diabetes mellitus with microalbuminuria, with long-term current use of insulin (HCC) [facility]* Diagnosis Type 2 diabetes mellitus with microalbuminuria, with long-term current use of insulin (HCC) [facility]* Diagnosis Closed fracture of left hip requiring operative repair with routine healing, subsequent encounter- Primary Hospital discharge follow-up Other follow-up examination Disseminated herpes zoster Herpes zoster with other specified complications Type 2 diabetes mellitus with microalbuminuria, with long-term current use of insulin (HCC) Primary hypertension Unspecified essential hypertension [facility] Diagnosis Closed fracture of left hip requiring operative repair with routine healing, subsequent encounter- Primary Balance problem Other symptoms involving nervous and musculoskeletal systems Muscle weakness Muscle weakness (generalized) [facility]* Diagnosis Type 2 diabetes mellitus with microalbuminuria, with long-term current use of insulin (HCC)- Primary Swelling of left foot Closed fracture of left hip requiring operative repair with routine healing, subsequent encounter BPH with obstruction/lower urinary tract symptoms Hypertrophy of prostate with urinary obstruction and other lower urinary tract symptoms (LUTS) Encounter for screening examination for other mental health and behavioral disorders Screening for depression Encounter for screening for malignant neoplasm of prostate Special screening for malignant neoplasm of prostate [facility] Diagnosis Type 2 diabetes mellitus with microalbuminuria, with long-term current use of insulin (HCC)- Primary [facility] Diagnosis Primary hypertension Unspecified essential hypertension [facility] Diagnosis Suspected 2019 novel coronavirus infection [facility] Diagnosis Elevated PSA Elevated prostate specific antigen (PSA) Encounter for observation for other suspected diseases and conditions ruled out [facility]* Diagnosis Type 2 diabetes mellitus with microalbuminuria, with long-term current use of insulin (HCC)- Primary Primary hypertension Unspecified essential hypertension Closed fracture of left hip requiring operative repair with routine healing, subsequent encounter BPH with obstruction/lower urinary tract symptoms Hypertrophy of prostate with urinary obstruction and other lower urinary tract symptoms (LUTS) Encounter for immunization Need for other specified prophylactic vaccination against single bacterial disease [facility]* Diagnosis Type 2 diabetes mellitus with microalbuminuria, with long-term current use of insulin (HCC)- Primary [facility]* Diagnosis Type 2 diabetes mellitus with microalbuminuria, with long-term current use of insulin (HCC)- Primary Fatigue, unspecified type Daytime sleepiness Elevated alkaline phosphatase level Other nonspecific abnormal serum enzyme levels Pure hypercholesterolemia Hypoglycemia Hypoglycemia, unspecified Primary hypertension Unspecified essential hypertension Vitamin D deficiency Unspecified vitamin D deficiency [facility]* Diagnosis BPH with obstruction/lower urinary tract symptoms- Primary Hypertrophy of prostate with urinary obstruction and other lower urinary tract symptoms (LUTS) Elevated PSA Elevated prostate specific antigen (PSA) Screening for genitourinary condition Screening for other and unspecified genitourinary condition Benign non-nodular prostatic hyperplasia with lower urinary tract symptoms [facility]* Diagnosis Dizziness- Primary Dizziness and giddiness Orthostatic hypotension [facility]* Diagnosis Type 2 diabetes mellitus with microalbuminuria, with long-term current use of insulin (HCC)- Primary [facility] Diagnosis Elevated PSA- Primary Elevated prostate specific antigen (PSA) Benign non-nodular prostatic hyperplasia with lower urinary tract symptoms Screening for genitourinary condition Screening for other and unspecified genitourinary condition Erectile dysfunction, unspecified erectile dysfunction type documented in this encounter [facility] note* Diagnosis Benign non-nodular prostatic hyperplasia with lower urinary tract symptoms- Primary Elevated PSA Elevated prostate specific antigen (PSA) Benign prostatic hyperplasia with weak urinary stream documented in this encounter [facility] note* Diagnosis Type 2 diabetes mellitus with microalbuminuria, with long-term current use of insulin (HCC)- Primary Benign prostatic hyperplasia with weak urinary stream documented in this encounter [facility] note* Diagnosis Pre-op examination- Primary Preoperative examination, unspecified Benign prostatic hyperplasia with weak urinary stream Primary hypertension Unspecified essential hypertension Pure hypercholesterolemia Type 2 diabetes mellitus with microalbuminuria, with long-term current use of insulin (HCC) Asthma, unspecified asthma severity, unspecified whether complicated, unspecified whether persistent (HCC) Peripheral vertigo, unspecified laterality Gastroesophageal reflux disease, unspecified whether esophagitis present Benign prostatic hyperplasia with weak urinary stream * Assessment & Plan Note - Jayne Hernandez APRN.CNP - 03/04/2025 2:20 PM EDT Associated Problem(s): Gastroesophageal reflux disease No medication. Diet and lifestyle modification. * Assessment & Plan Note - Jayne Hernandez APRN.CNP - 03/04/2025 7:10 AM EDT Associated Problem(s): Peripheral vertigo Meclizine PRN- Instructed to take morning of surgery, if needed. Patient states that he has not needed to take medication recently. * Assessment & Plan Note - Jayne Hernandez APRN.CNP - 03/04/2025 7:09 AM EDT Associated Problem(s): Asthma (HCC) Albuterol. Patient uses rescue inhaler twice a month. Denies hospitalization in the last year due to respiratory issues. Instructed to continue using inhaler as prescribed and to bring inhaler to surgery. * Assessment & Plan Note - Jayne Hernandez APRN.CNP - 03/04/2025 7:08 AM EDT Associated Problem(s): Type 2 diabetes mellitus with microalbuminuria, with long-term current use of insulin (HCC) Insulin- Instructed to follow prescribing physician's perioperative instructions. Semaglutide- Instructed to hold 7 days prior to surgery. Hemoglobin A1C (%) Date Value 12/30/2024 8.2 06/27/2021 7.7 * Assessment & Plan Note - Jayne Hernandez APRN.CNP - 03/04/2025 7:07 AM EDT Associated Problem(s): Pure hypercholesterolemia Simvastatin- Instructed to continue taking medication as prescribed. * Assessment & Plan Note - Jayne Hernandez APRN.CNP - 03/04/2025 7:07 AM EDT Associated Problem(s): Primary hypertension Metoprolol- Instructed to take morning of surgery. Enalapril- Instructed to hold morning of surgery. * Assessment & Plan Note - Jayne Hernandez APRN.CNP - 03/04/2025 7:06 AM EDT Associated Problem(s): Benign prostatic hyperplasia with weak urinary stream Surgery scheduled 03/18/25. * Assessment & Plan Note - Jayne Hernandez APRN.CNP - 03/04/2025 7:06 AM EDT Associated Problem(s): Pre-op examination see note for medical conditions which may affect iris-operative course that were addressed at today's visit. documented in this encounter [facility] note* Diagnosis Pre-op examination- Primary Preoperative examination, unspecified Benign prostatic hyperplasia with weak urinary stream Primary hypertension Unspecified essential hypertension Pure hypercholesterolemia Type 2 diabetes mellitus with microalbuminuria, with long-term current use of insulin (HCC) Asthma, unspecified asthma severity, unspecified whether complicated, unspecified whether persistent (HCC) Peripheral vertigo, unspecified laterality Gastroesophageal reflux disease, unspecified whether esophagitis present Benign non-nodular prostatic hyperplasia with lower urinary tract symptoms- Primary documented in this encounter [facility] note* Diagnosis Pre-op examination- Primary Preoperative examination, unspecified Benign prostatic hyperplasia with weak urinary stream Primary hypertension Unspecified essential hypertension Pure hypercholesterolemia Type 2 diabetes mellitus with microalbuminuria, with long-term current use of insulin (HCC) Asthma, unspecified asthma severity, unspecified whether complicated, unspecified whether persistent (HCC) Peripheral vertigo, unspecified laterality Gastroesophageal reflux disease, unspecified whether esophagitis present Benign non-nodular prostatic hyperplasia with lower urinary tract symptoms- Primary documented in this encounter [facility] note* Diagnosis Pre-op examination- Primary Preoperative examination, unspecified Benign prostatic hyperplasia with weak urinary stream Primary hypertension Unspecified essential hypertension Pure hypercholesterolemia Type 2 diabetes mellitus with microalbuminuria, with long-term current use of insulin (HCC) Asthma, unspecified asthma severity, unspecified whether complicated, unspecified whether persistent (HCC) Peripheral vertigo, unspecified laterality Gastroesophageal reflux disease, unspecified whether esophagitis present Benign non-nodular prostatic hyperplasia with lower urinary tract symptoms- Primary [facility] Additional Instructions Your urinalysis did show 1+ bacteria but no other signs of infection with no white blood cells. We will send off a culture but defer treatment with antibiotics at this time. [facility] Work Phone: [facility] (narrative)* Outpatient Procedure (Routine) - Authorized Specialty Diagnoses / Procedures Referred By Contac t Referred To Contact [facility] Diagnoses Colon cancer screening Procedures COLONOSCOPY SCREENING COLONOSCOPY FLX DX W/COLLJ SPEC WHEN Taylor Fraser MD [address] [place] [address] [facility] [place] [address] [place] [id number] Referral ID Status Reason Start Date Expiration Date Visits Requested Visits Authorized [id number] Authorized Auto-Generat ed Referral 11/12/2023 11/11/2024 1 1 T [facility] for referral (narrative)* Outpatient Procedure (Routine) - Closed Specialty Diagnoses / Procedures Referred By Contac t Referred To Contact [facility] Diagnoses Colon cancer screening Procedures COLONOSCOPY SCREENING COLONOSCOPY FLX DX W/COLLJ SPEC WHEN Taylor Fraser MD [address] [place] [address] [facility] [address] [address] Referral ID Status Reason Start Date Expiration Date V isits Requested Visits Authorized [id number] Closed Auto-Generate d Referral 11/12/2023 11/11/2024 1 1 T [facility] for visit Narrative* Outpatient Procedure (Routine) - Closed Specialty Diagnoses / Procedures Referred By Contac t Referred To Contact [facility] Diagnoses Colon cancer screening Procedures COLONOSCOPY SCREENING COLONOSCOPY FLX DX W/COLLJ SPEC WHEN Taylor Fraser MD [address] [place] [address] [facility] [place] [address] [place] [id number] Referral ID Status Reason Start Date Expiration Date V isits Requested Visits Authorized [id number] Closed Auto-Generate d Referral 11/12/2023 11/11/2024 1 1 [facility] Advance Directives Documents on File Type Date Recorded Patient [employer] Expl anation Advance Directive(s) Advance Directive(s) 07/02/2017 10:07 AM Advance Directive Response Recorded Date/ Time Living Will No July 03 022 8:09pm Power of Telesales Specialist No July 03, 2022 8:09pm Chief Complaint and Reason for Visit Chief Complaint nausea/vomiting Family History Relationship Condition Age at Onset Recorded Date/T cathy father Asthma Unknown Kidney disorder Unknown Malignant neoplasm Unknown brother Cardiac disease Unknown Asthma Unknown sister Cardiac disease Unknown Reason for Referral Specialty Diagnoses / Procedures Referred By Contac t Referred To Contact General Surgery Diagnoses Colon cancer screening Procedures CONSULT TO GENERAL SURGERY OFFICE/OUTPATIENT [facility] 60 MINUTES Son Zambrano MD [address] [place] [address] Referral ID Status Reason Start Date Expiration Date Visits Requested Visits Authorized [id number] Authorized PCP Requested Referral 10/22/2023 10/21/2024 1 1 Summary Purpose Additional Source Comments Source Comments (unrecognize d section and content) In the event this informatio n is protected by the Federal Confidentiality of Alcohol and Drug Abuse Patient Records regulations: The Federal rules restrict any use of the information to criminally investigate or prosecute any alcohol or drug abuse patient.[facility]In the event this information is protected by the Federal Confidentiality of Alcohol and Drug Abuse Patient Records regulations: The Federal rules restrict any use of the information to criminally investigate or prosecute any alcohol or drug abuse patient.[facility] HospitalIn the event this information is protected by the Federal Confidentiality of Alcohol and Drug Abuse Patient Records regulations: The Federal rules restrict any use of the information to criminally investigate or prosecute any alcohol or drug abuse patient.[facility] HospitalIn the event this information is protected by the Federal Confidentiality of Alcohol and Drug Abuse Patient Records regulations: The Federal rules restrict any use of the information to criminally investigate or prosecute any alcohol or drug abuse patient.[facility] HospitalIn the event this information is protected by the Federal Confidentiality of Alcohol and Drug Abuse Patient Records regulations: The Federal rules restrict any use of the information to criminally investigate or prosecute any alcohol or drug abuse patient.[facility] HospitalIn the event this information is protected by the Federal Confidentiality of Alcohol and Drug Abuse Patient Records regulations: The Federal rules restrict any use of the information to criminally investigate or prosecute any alcohol or drug abuse patient.[facility] HospitalIn the event this information is protected by the Federal Confidentiality of Alcohol and Drug Abuse Patient Records regulations: The Federal rules restrict any use of the information to criminally investigate or prosecute any alcohol or drug abuse patient.[facility] HospitalIn the event this information is protected by the Federal Confidentiality of Alcohol and Drug Abuse Patient Records regulations: The Federal rules restrict any use of the information to criminally investigate or prosecute any alcohol or drug abuse patient.[facility] HospitalIn the event this information is protected by the Federal Confidentiality of Alcohol and Drug Abuse Patient Records regulations: The Federal rules restrict any use of the information to criminally investigate or prosecute any alcohol or drug abuse patient.[facility] HospitalIn the event this information is protected by the Federal Confidentiality of Alcohol and Drug Abuse Patient Records regulations: The Federal rules restrict any use of the information to criminally investigate or prosecute any alcohol or drug abuse patient.[facility] HospitalIn the event this information is protected by the Federal Confidentiality of Alcohol and Drug Abuse Patient Records regulations: The Federal rules restrict any use of the information to criminally investigate or prosecute any alcohol or drug abuse patient.[facility] HospitalIn the event this information is protected by the Federal Confidentiality of Alcohol and Drug Abuse Patient Records regulations: The Federal rules restrict any use of the information to criminally investigate or prosecute any alcohol or drug abuse patient.[facility] HospitalIn the event this information is protected by the Federal Confidentiality of Alcohol and Drug Abuse Patient Records regulations: The Federal rules restrict any use of the information to criminally investigate or prosecute any alcohol or drug abuse patient.[facility] HospitalIn the event this information is protected by the Federal Confidentiality of Alcohol and Drug Abuse Patient Records regulations: The Federal rules restrict any use of the information to criminally investigate or prosecute any alcohol or drug abuse patient.[facility] HospitalIn the event this information is protected by the Federal Confidentiality of Alcohol and Drug Abuse Patient Records regulations: The Federal rules restrict any use of the information to criminally investigate or prosecute any alcohol or drug abuse patient.[facility] HospitalIn the event this information is protected by the Federal Confidentiality of Alcohol and Drug Abuse Patient Records regulations: The Federal rules restrict any use of the information to criminally investigate or prosecute any alcohol or drug abuse patient.[facility] HospitalIn the event this information is protected by the Federal Confidentiality of Alcohol and Drug Abuse Patient Records regulations: The Federal rules restrict any use of the information to criminally investigate or prosecute any alcohol or drug abuse patient.[facility] HospitalIn the event this information is protected by the Federal Confidentiality of Alcohol and Drug Abuse Patient Records regulations: The Federal rules restrict any use of the information to criminally investigate or prosecute any alcohol or drug abuse patient.[facility] HospitalIn the event this information is protected by the Federal Confidentiality of Alcohol and Drug Abuse Patient Records regulations: The Federal rules restrict any use of the information to criminally investigate or prosecute any alcohol or drug abuse patient.[facility] HospitalIn the event this information is protected by the Federal Confidentiality of Alcohol and Drug Abuse Patient Records regulations: The Federal rules restrict any use of the information to criminally investigate or prosecute any alcohol or drug abuse patient.[facility] HospitalIn the event this information is protected by the Federal Confidentiality of Alcohol and Drug Abuse Patient Records regulations: The Federal rules restrict any use of the information to criminally investigate or prosecute any alcohol or drug abuse patient.[facility] HospitalIn the event this information is protected by the Federal Confidentiality of Alcohol and Drug Abuse Patient Records regulations: The Federal rules restrict any use of the information to criminally investigate or prosecute any alcohol or drug abuse patient.[facility] HospitalIn the event this information is protected by the Federal Confidentiality of Alcohol and Drug Abuse Patient Records regulations: The Federal rules restrict any use of the information to criminally investigate or prosecute any alcohol or drug abuse patient.[facility] HospitalIn the event this information is protected by the Federal Confidentiality of Alcohol and Drug Abuse Patient Records regulations: The Federal rules restrict any use of the information to criminally investigate or prosecute any alcohol or drug abuse patient.[facility] HospitalIn the event this information is protected by the Federal Confidentiality of Alcohol and Drug Abuse Patient Records regulations: The Federal rules restrict any use of the information to criminally investigate or prosecute any alcohol or drug abuse patient.[facility] HospitalIn the event this information is protected by the Federal Confidentiality of Alcohol and Drug Abuse Patient Records regulations: The Federal rules restrict any use of the information to criminally investigate or prosecute any alcohol or drug abuse patient.[facility] HospitalIn the event this information is protected by the Federal Confidentiality of Alcohol and Drug Abuse Patient Records regulations: The Federal rules restrict any use of the information to criminally investigate or prosecute any alcohol or drug abuse patient.[facility] HospitalIn the event this information is protected by the Federal Confidentiality of Alcohol and Drug Abuse Patient Records regulations: The Federal rules restrict any use of the information to criminally investigate or prosecute any alcohol or drug abuse patient.[facility] HospitalIn the event this information is protected by the Federal Confidentiality of Alcohol and Drug Abuse Patient Records regulations: The Federal rules restrict any use of the information to criminally investigate or prosecute any alcohol or drug abuse patient.[facility] HospitalIn the event this information is protected by the Federal Confidentiality of Alcohol and Drug Abuse Patient Records regulations: The Federal rules restrict any use of the information to criminally investigate or prosecute any alcohol or drug abuse patient.[facility] HospitalIn the event this information is protected by the Federal Confidentiality of Alcohol and Drug Abuse Patient Records regulations: The Federal rules restrict any use of the information to criminally investigate or prosecute any alcohol or drug abuse patient.[facility] HospitalIn the event this information is protected by the Federal Confidentiality of Alcohol and Drug Abuse Patient Records regulations: The Federal rules restrict any use of the information to criminally investigate or prosecute any alcohol or drug abuse patient.[facility] HospitalIn the event this information is protected by the Federal Confidentiality of Alcohol and Drug Abuse Patient Records regulations: The Federal rules restrict any use of the information to criminally investigate or prosecute any alcohol or drug abuse patient.[facility] HospitalIn the event this information is protected by the Federal Confidentiality of Alcohol and Drug Abuse Patient Records regulations: The Federal rules restrict any use of the information to criminally investigate or prosecute any alcohol or drug abuse patient.[facility] HospitalIn the event this information is protected by the Federal Confidentiality of Alcohol and Drug Abuse Patient Records regulations: The Federal rules restrict any use of the information to criminally investigate or prosecute any alcohol or drug abuse patient.[facility] HospitalIn the event this information is protected by the Federal Confidentiality of Alcohol and Drug Abuse Patient Records regulations: The Federal rules restrict any use of the information to criminally investigate or prosecute any alcohol or drug abuse patient.[facility] HospitalIn the event this information is protected by the Federal Confidentiality of Alcohol and Drug Abuse Patient Records regulations: The Federal rules restrict any use of the information to criminally investigate or prosecute any alcohol or drug abuse patient.[facility] HospitalIn the event this information is protected by the Federal Confidentiality of Alcohol and Drug Abuse Patient Records regulations: The Federal rules restrict any use of the information to criminally investigate or prosecute any alcohol or drug abuse patient.[facility] HospitalIn the event this information is protected by the Federal Confidentiality of Alcohol and Drug Abuse Patient Records regulations: The Federal rules restrict any use of the information to criminally investigate or prosecute any alcohol or drug abuse patient.[facility] HospitalIn the event this information is protected by the Federal Confidentiality of Alcohol and Drug Abuse Patient Records regulations: The Federal rules restrict any use of the information to criminally investigate or prosecute any alcohol or drug abuse patient.[facility] HospitalIn the event this information is protected by the Federal Confidentiality of Alcohol and Drug Abuse Patient Records regulations: The Federal rules restrict any use of the information to criminally investigate or prosecute any alcohol or drug abuse patient.[facility] HospitalIn the event this information is protected by the Federal Confidentiality of Alcohol and Drug Abuse Patient Records regulations: The Federal rules restrict any use of the information to criminally investigate or prosecute any alcohol or drug abuse patient.[facility] HospitalIn the event this information is protected by the Federal Confidentiality of Alcohol and Drug Abuse Patient Records regulations: The Federal rules restrict any use of the information to criminally investigate or prosecute any alcohol or drug abuse patient.[facility] HospitalIn the event this information is protected by the Federal Confidentiality of Alcohol and Drug Abuse Patient Records regulations: The Federal rules restrict any use of the information to criminally investigate or prosecute any alcohol or drug abuse patient.[facility] HospitalIn the event this information is protected by the Federal Confidentiality of Alcohol and Drug Abuse Patient Records regulations: The Federal rules restrict any use of the information to criminally investigate or prosecute any alcohol or drug abuse patient.[facility] HospitalIn the event this information is protected by the Federal Confidentiality of Alcohol and Drug Abuse Patient Records regulations: The Federal rules restrict any use of the information to criminally investigate or prosecute any alcohol or drug abuse patient.[facility] HospitalIn the event this information is protected by the Federal Confidentiality of Alcohol and Drug Abuse Patient Records regulations: The Federal rules restrict any use of the information to criminally investigate or prosecute any alcohol or drug abuse patient.[facility] HospitalIn the event this information is protected by the Federal Confidentiality of Alcohol and Drug Abuse Patient Records regulations: The Federal rules restrict any use of the information to criminally investigate or prosecute any alcohol or drug abuse patient.[facility] HospitalIn the event this information is protected by the Federal Confidentiality of Alcohol and Drug Abuse Patient Records regulations: The Federal rules restrict any use of the information to criminally investigate or prosecute any alcohol or drug abuse patient.[facility] HospitalIn the event this information is protected by the Federal Confidentiality of Alcohol and Drug Abuse Patient Records regulations: The Federal rules restrict any use of the information to criminally investigate or prosecute any alcohol or drug abuse patient.[facility] HospitalIn the event this information is protected by the Federal Confidentiality of Alcohol and Drug Abuse Patient Records regulations: The Federal rules restrict any use of the information to criminally investigate or prosecute any alcohol or drug abuse patient.[facility] HospitalIn the event this information is protected by the Federal Confidentiality of Alcohol and Drug Abuse Patient Records regulations: The Federal rules restrict any use of the information to criminally investigate or prosecute any alcohol or drug abuse patient.[facility] HospitalIn the event this information is protected by the Federal Confidentiality of Alcohol and Drug Abuse Patient Records regulations: The Federal rules restrict any use of the information to criminally investigate or prosecute any alcohol or drug abuse patient.[facility] HospitalIn the event this information is protected by the Federal Confidentiality of Alcohol and Drug Abuse Patient Records regulations: The Federal rules restrict any use of the information to criminally investigate or prosecute any alcohol or drug abuse patient.[facility] HospitalIn the event this information is protected by the Federal Confidentiality of Alcohol and Drug Abuse Patient Records regulations: The Federal rules restrict any use of the information to criminally investigate or prosecute any alcohol or drug abuse patient.[facility] HospitalIn the event this information is protected by the Federal Confidentiality of Alcohol and Drug Abuse Patient Records regulations: The Federal rules restrict any use of the information to criminally investigate or prosecute any alcohol or drug abuse patient.[facility] HospitalIn the event this information is protected by the Federal Confidentiality of Alcohol and Drug Abuse Patient Records regulations: The Federal rules restrict any use of the information to criminally investigate or prosecute any alcohol or drug abuse patient.[facility] HospitalIn the event this information is protected by the Federal Confidentiality of Alcohol and Drug Abuse Patient Records regulations: The Federal rules restrict any use of the information to criminally investigate or prosecute any alcohol or drug abuse patient.[facility] HospitalIn the event this information is protected by the Federal Confidentiality of Alcohol and Drug Abuse Patient Records regulations: The Federal rules restrict any use of the information to criminally investigate or prosecute any alcohol or drug abuse patient.[facility] HospitalIn the event this information is protected by the Federal Confidentiality of Alcohol and Drug Abuse Patient Records regulations: The Federal rules restrict any use of the information to criminally investigate or prosecute any alcohol or drug abuse patient.[facility] HospitalIn the event this information is protected by the Federal Confidentiality of Alcohol and Drug Abuse Patient Records regulations: The Federal rules restrict any use of the information to criminally investigate or prosecute any alcohol or drug abuse patient.[facility] HospitalIn the event this information is protected by the Federal Confidentiality of Alcohol and Drug Abuse Patient Records regulations: The Federal rules restrict any use of the information to criminally investigate or prosecute any alcohol or drug abuse patient.[facility] HospitalIn the event this information is protected by the Federal Confidentiality of Alcohol and Drug Abuse Patient Records regulations: The Federal rules restrict any use of the information to criminally investigate or prosecute any alcohol or drug abuse patient.[facility] HospitalIn the event this information is protected by the Federal Confidentiality of Alcohol and Drug Abuse Patient Records regulations: The Federal rules restrict any use of the information to criminally investigate or prosecute any alcohol or drug abuse patient.[facility] HospitalIn the event this information is protected by the Federal Confidentiality of Alcohol and Drug Abuse Patient Records regulations: The Federal rules restrict any use of the information to criminally investigate or prosecute any alcohol or drug abuse patient.[facility] HospitalIn the event this information is protected by the Federal Confidentiality of Alcohol and Drug Abuse Patient Records regulations: The Federal rules restrict any use of the information to criminally investigate or prosecute any alcohol or drug abuse patient.[facility] HospitalIn the event this information is protected by the Federal Confidentiality of Alcohol and Drug Abuse Patient Records regulations: The Federal rules restrict any use of the information to criminally investigate or prosecute any alcohol or drug abuse patient.[facility] HospitalIn the event this information is protected by the Federal Confidentiality of Alcohol and Drug Abuse Patient Records regulations: The Federal rules restrict any use of the information to criminally investigate or prosecute any alcohol or drug abuse patient.[facility] HospitalIn the event this information is protected by the Federal Confidentiality of Alcohol and Drug Abuse Patient Records regulations: The Federal rules restrict any use of the information to criminally investigate or prosecute any alcohol or drug abuse patient.[facility] HospitalIn the event this information is protected by the Federal Confidentiality of Alcohol and Drug Abuse Patient Records regulations: The Federal rules restrict any use of the information to criminally investigate or prosecute any alcohol or drug abuse patient.[facility] HospitalIn the event this information is protected by the Federal Confidentiality of Alcohol and Drug Abuse Patient Records regulations: The Federal rules restrict any use of the information to criminally investigate or prosecute any alcohol or drug abuse patient.[facility] HospitalIn the event this information is protected by the Federal Confidentiality of Alcohol and Drug Abuse Patient Records regulations: The Federal rules restrict any use of the information to criminally investigate or prosecute any alcohol or drug abuse patient.[facility] HospitalIn the event this information is protected by the Federal Confidentiality of Alcohol and Drug Abuse Patient Records regulations: The Federal rules restrict any use of the information to criminally investigate or prosecute any alcohol or drug abuse patient.[facility] HospitalIn the event this information is protected by the Federal Confidentiality of Alcohol and Drug Abuse Patient Records regulations: The Federal rules restrict any use of the information to criminally investigate or prosecute any alcohol or drug abuse patient.[facility] HospitalIn the event this information is protected by the Federal Confidentiality of Alcohol and Drug Abuse Patient Records regulations: The Federal rules restrict any use of the information to criminally investigate or prosecute any alcohol or drug abuse patient.[facility] HospitalIn the event this information is protected by the Federal Confidentiality of Alcohol and Drug Abuse Patient Records regulations: The Federal rules restrict any use of the information to criminally investigate or prosecute any alcohol or drug abuse patient.[facility] HospitalIn the event this information is protected by the Federal Confidentiality of Alcohol and Drug Abuse Patient Records regulations: The Federal rules restrict any use of the information to criminally investigate or prosecute any alcohol or drug abuse patient.[facility] HospitalIn the event this information is protected by the Federal Confidentiality of Alcohol and Drug Abuse Patient Records regulations: The Federal rules restrict any use of the information to criminally investigate or prosecute any alcohol or drug abuse patient.[facility] HospitalIn the event this information is protected by the Federal Confidentiality of Alcohol and Drug Abuse Patient Records regulations: The Federal rules restrict any use of the information to criminally investigate or prosecute any alcohol or drug abuse patient.[facility] HospitalIn the event this information is protected by the Federal Confidentiality of Alcohol and Drug Abuse Patient Records regulations: The Federal rules restrict any use of the information to criminally investigate or prosecute any alcohol or drug abuse patient.[facility] HospitalIn the event this information is protected by the Federal Confidentiality of Alcohol and Drug Abuse Patient Records regulations: The Federal rules restrict any use of the information to criminally investigate or prosecute any alcohol or drug abuse patient.[facility] HospitalIn the event this information is protected by the Federal Confidentiality of Alcohol and Drug Abuse Patient Records regulations: The Federal rules restrict any use of the information to criminally investigate or prosecute any alcohol or drug abuse patient.[facility] HospitalIn the event this information is protected by the Federal Confidentiality of Alcohol and Drug Abuse Patient Records regulations: The Federal rules restrict any use of the information to criminally investigate or prosecute any alcohol or drug abuse patient.[facility] HospitalIn the event this information is protected by the Federal Confidentiality of Alcohol and Drug Abuse Patient Records regulations: The Federal rules restrict any use of the information to criminally investigate or prosecute any alcohol or drug abuse patient.[facility] HospitalIn the event this information is protected by the Federal Confidentiality of Alcohol and Drug Abuse Patient Records regulations: The Federal rules restrict any use of the information to criminally investigate or prosecute any alcohol or drug abuse patient.[facility] HospitalIn the event this information is protected by the Federal Confidentiality of Alcohol and Drug Abuse Patient Records regulations: The Federal rules restrict any use of the information to criminally investigate or prosecute any alcohol or drug abuse patient.[facility] HospitalIn the event this information is protected by the Federal Confidentiality of Alcohol and Drug Abuse Patient Records regulations: The Federal rules restrict any use of the information to criminally investigate or prosecute any alcohol or drug abuse patient.[facility] HospitalIn the event this information is protected by the Federal Confidentiality of Alcohol and Drug Abuse Patient Records regulations: The Federal rules restrict any use of the information to criminally investigate or prosecute any alcohol or drug abuse patient.[facility] HospitalIn the event this information is protected by the Federal Confidentiality of Alcohol and Drug Abuse Patient Records regulations: The Federal rules restrict any use of the information to criminally investigate or prosecute any alcohol or drug abuse patient.[facility] HospitalIn the event this information is protected by the Federal Confidentiality of Alcohol and Drug Abuse Patient Records regulations: The Federal rules restrict any use of the information to criminally investigate or prosecute any alcohol or drug abuse patient.[facility] HospitalIn the event this information is protected by the Federal Confidentiality of Alcohol and Drug Abuse Patient Records regulations: The Federal rules restrict any use of the information to criminally investigate or prosecute any alcohol or drug abuse patient.[facility] HospitalIn the event this information is protected by the Federal Confidentiality of Alcohol and Drug Abuse Patient Records regulations: The Federal rules restrict any use of the information to criminally investigate or prosecute any alcohol or drug abuse patient.[facility] HospitalIn the event this information is protected by the Federal Confidentiality of Alcohol and Drug Abuse Patient Records regulations: The Federal rules restrict any use of the information to criminally investigate or prosecute any alcohol or drug abuse patient.[facility] HospitalIn the event this information is protected by the Federal Confidentiality of Alcohol and Drug Abuse Patient Records regulations: The Federal rules restrict any use of the information to criminally investigate or prosecute any alcohol or drug abuse patient.[facility] HospitalIn the event this information is protected by the Federal Confidentiality of Alcohol and Drug Abuse Patient Records regulations: The Federal rules restrict any use of the information to criminally investigate or prosecute any alcohol or drug abuse patient.[facility] HospitalIn the event this information is protected by the Federal Confidentiality of Alcohol and Drug Abuse Patient Records regulations: The Federal rules restrict any use of the information to criminally investigate or prosecute any alcohol or drug abuse patient.[facility] HospitalIn the event this information is protected by the Federal Confidentiality of Alcohol and Drug Abuse Patient Records regulations: The Federal rules restrict any use of the information to criminally investigate or prosecute any alcohol or drug abuse patient.[facility] HospitalIn the event this information is protected by the Federal Confidentiality of Alcohol and Drug Abuse Patient Records regulations: The Federal rules restrict any use of the information to criminally investigate or prosecute any alcohol or drug abuse patient.[facility] HospitalIn the event this information is protected by the Federal Confidentiality of Alcohol and Drug Abuse Patient Records regulations: The Federal rules restrict any use of the information to criminally investigate or prosecute any alcohol or drug abuse patient.[facility] HospitalIn the event this information is protected by the Federal Confidentiality of Alcohol and Drug Abuse Patient Records regulations: The Federal rules restrict any use of the information to criminally investigate or prosecute any alcohol or drug abuse patient.[facility] HospitalIn the event this information is protected by the Federal Confidentiality of Alcohol and Drug Abuse Patient Records regulations: The Federal rules restrict any use of the information to criminally investigate or prosecute any alcohol or drug abuse patient.[facility] HospitalIn the event this information is protected by the Federal Confidentiality of Alcohol and Drug Abuse Patient Records regulations: The Federal rules restrict any use of the information to criminally investigate or prosecute any alcohol or drug abuse patient.[facility] HospitalIn the event this information is protected by the Federal Confidentiality of Alcohol and Drug Abuse Patient Records regulations: The Federal rules restrict any use of the information to criminally investigate or prosecute any alcohol or drug abuse patient.[facility] HospitalIn the event this information is protected by the Federal Confidentiality of Alcohol and Drug Abuse Patient Records regulations: The Federal rules restrict any use of the information to criminally investigate or prosecute any alcohol or drug abuse patient.[facility] HospitalIn the event this information is protected by the Federal Confidentiality of Alcohol and Drug Abuse Patient Records regulations: The Federal rules restrict any use of the information to criminally investigate or prosecute any alcohol or drug abuse patient.[facility] HospitalIn the event this information is protected by the Federal Confidentiality of Alcohol and Drug Abuse Patient Records regulations: The Federal rules restrict any use of the information to criminally investigate or prosecute any alcohol or drug abuse patient.[facility] HospitalIn the event this information is protected by the Federal Confidentiality of Alcohol and Drug Abuse Patient Records regulations: The Federal rules restrict any use of the information to criminally investigate or prosecute any alcohol or drug abuse patient.[facility] HospitalIn the event this information is protected by the Federal Confidentiality of Alcohol and Drug Abuse Patient Records regulations: The Federal rules restrict any use of the information to criminally investigate or prosecute any alcohol or drug abuse patient.[facility] HospitalIn the event this information is protected by the Federal Confidentiality of Alcohol and Drug Abuse Patient Records regulations: The Federal rules restrict any use of the information to criminally investigate or prosecute any alcohol or drug abuse patient.[facility] HospitalIn the event this information is protected by the Federal Confidentiality of Alcohol and Drug Abuse Patient Records regulations: The Federal rules restrict any use of the information to criminally investigate or prosecute any alcohol or drug abuse patient.[facility] HospitalIn the event this information is protected by the Federal Confidentiality of Alcohol and Drug Abuse Patient Records regulations: The Federal rules restrict any use of the information to criminally investigate or prosecute any alcohol or drug abuse patient.[facility] HospitalIn the event this information is protected by the Federal Confidentiality of Alcohol and Drug Abuse Patient Records regulations: The Federal rules restrict any use of the information to criminally investigate or prosecute any alcohol or drug abuse patient.[facility] HospitalIn the event this information is protected by the Federal Confidentiality of Alcohol and Drug Abuse Patient Records regulations: The Federal rules restrict any use of the information to criminally investigate or prosecute any alcohol or drug abuse patient.[facility] Reason for Visit (unrecogniz ed section and content) Reason Comments meds rec'd from mike nordisk Reason Comments Follow Up Reason Comments Allied Health Visit DM Reason Comments Patient Assistance Pen needles Reason Comments Patient Assistance Reason Comments Patient Question Nov[facility] (Pen needle s) Reason Comments Forms Freestyle Luiza sens ors Reason Comments rec'd 5 boxes of pen needles Reason Comments Hearing Loss Reason Comments Ear Problem right ear blocked fo r about a month, no pain Reason Comments 3 week follow up Right ear has improv ed Reason Comments Diabetes Reason Comments Patient Assistance Received Novolog, Tr esiba and Ozempic Reason Comments Opened In Error Reason Comments Forms NovoCares PAP renewa l for 2022 (Tresiba, Novolog, Ozempic) Reason Comments Missed Appointment Reason Comments Dizziness vomiting x 2 week, 2 vomiting spells Reason Comments Medication Problem Reason Comments Problem with application Reason Comments Letter Approval from Mike N ordisk Reason Comments Rash linear both sides Reason Comments rec'd from Mike nordisk Reason Comments Follow Up Right ear had improv ed, recently it blocked again, worse when sleeping, but that seems to have cleared somewhat. No pain. Reason Onset Date Comments Refill Request 10/31/2022 Reason Comments rec'd pen needles from mike nordisk Reason Comments forms for refill via mike nordisk Reason Comments Forms From for refills fro m Mike nordisk Reason Comments OV notes x 6 months Reason Onset Date Comments Refill Request 01/08/2023 Reason Comments pt assistance meds from mike nordisk Reason Comments pen needels rec'd from mike nordisk Reason Comments Patient Question Reason Comments 4 month f/u Reason Onset Date Comments Immunizations 05/17/2023 Flu vaccination Reason Comments 3 MEDICINES REC'D FROM MIKE NORDISK Reason Comments Forms Patient Assistance - Mike Nordisk 2023 Renewal Reason Onset Date Comments Refill Request 07/12/2023 Reason Onset Date Comments Patient Assistance Program 08/29/2023 Ozemp ic 1mgTresiba Flextouch units- 100Novolog Flexpen units-100 Reason Comments Script for Freestyle Luiza 2 Reason Comments pt assistance medicines and needles from mike nordisk Reason Comments Needs chart notes faxed to [employer] for Freest Freestyle Luiza Sensors Reason Comments Follow Up Reason Comments Results Reason Comments Colonoscopy Consult Last colonoscopy [address] Macdonald - dayan bx, previously had tubular adenoma removed in 2006; denies bowel problem or concern currently Specialty Diagnoses / Procedures Referred By Mariano kang Referred To Contact General Surgery Diagnoses Colon cancer screening Procedures CONSULT TO GENERAL SURGERY OFFICE/OUTPATIENT [facility] 60 MINUTES Son Zambrano MD [address] [place] [address] Referral ID Status Reason Start Date Expiration Date V isits Requested Visits Authorized [id number] Closed PCP Requested Referral 10/22/2023 10/21/2024 1 1 Reason Onset Date Comments error 12/18/2023 Reason Comments Orders Reason Comments Follow HH Orders Reason Onset Date Comments Transition Of Care 01/10/2024 Reason Comments Possible shingles Reason Comments Physical Therapy Plan of Care Reason Comments Rash on left chest and ba ck question [facility] F/U Reason Comments pt assistance meds rec'd from noro nordi sk Reason Comments Outpatient PT order sent to [facility] Reason Comments Missed Appointment Pharmacy Visit Jonatan eduling Reason Comments Acute Visit Left foot swollen Reason Comments Missed Appointment Pharmacist Visit Res cheduling Reason Comments Patient assist meds Reason Comments pen needles from mike nordisk Reason Onset Date Comments Refill Request 04/15/2024 Specialty Diagnoses / Procedures Referred By Mariano kang Referred To Contact MR IMAGING Diagnoses Elevated PSA Encounter for observation for other suspected diseases and conditions ruled out Procedures MRI PROSTATE WO/W IVCON MRI PELVIS W/O & W/CONTRAST MATERIAL Marcella Gee APRN.LIZZ JACINTO [address] [place] [address] [place] [address] Referral ID Status Reason Start Date Expiration Date V isits Requested Visits Authorized [id number] Closed Auto-Generate d Referral 10/16/2023 10/16/2024 1 1 Reason Comments Results - Mri Reason Comments 12/07/2023 COLON ASC Reason Comments Appointment Reason Comments Forms Mike Nordisk Patient Assistance Program 2024 Renewal Reason Comments Medication Problem Mike Nordisk Voucher s Reason Comments medicines and pen neddles rec'd from Nov o nordisk Reason Comments Forms Patient Assistance P rogram -Mike Nordisk (Medication Change Forms) Reason Comments re'c novolg flex pen from mike nordisk Reason Comments Follow Up 4 months Reason Comments Follow Up Benign Prostatic Hypertrophy Elevated PSA Reason Comments Patient Update Reason Comments Dizziness Reoccurrence Reason Comments Established Patient Discuss surgery Specialty Diagnoses / Procedures Referred By Mariano kang Referred To Contact Urology Diagnoses Benign non-nodular prostatic hyperplasia with lower urinary tract symptoms Procedures CONSULT TO UROLOGY OFFICE/OUTPATIENT NEW HIGH MDM 60 MINUTES Marcella Gee APRN.LIZZ JACINTO [address] [place] [address] Phone: tel: fax: Referral ID Status Reason Start Date Expiration Date V isits Requested Visits Authorized [id number] Closed PCP Requested Referral 11/03/2024 11/03/2025 1 1 Reason Comments pt assistance rec'd from mike nordisk Reason Comments Patient Update Ozempic Refills Reason Comments Cystoscopy-1 Reason Comments Voiding Trial Post Void Residual Reason Comments Benign non-nodular prostatic hyperplasia with lower urinary Care Teams (unrecognized sec tion and content) Policy Writer Typist Relationship Specialty Start Date End Date Son Zambrano MD [address] [place] [address] PCP - General 05/13/02 [facility] [address] [place] [address] Pharmacist Pharmacy 04/21/20 Policy Writer Typist Relationship Specialty Start Date End Date Son Zambrano MD [address] [place] [address] PCP - General 05/13/02 ChenteEllisSaint [facility] [address] [place] [address] Pharmacist Pharmacy 04/21/20 Policy Writer Typist Relationship Specialty Start Date End Date Son Zambrano MD [address] [place] [address] PCP - General 05/13/02 Ellis HernandezSaint [facility] [address] [place] [address] Pharmacist Pharmacy 04/21/20 Policy Writer Typist Relationship Specialty Start Date End Date Son Zambrano MD [address] [place] [address] PCP - General 05/13/02 Ellis [facility]Saint [facility] [address] [place] [address] Pharmacist Pharmacy 04/21/20 Policy Writer Typist Relationship Specialty Start Date End Date Son Zambrano MD [address] [place] [address] PCP - General 05/13/02 Ellis Hernandez, [facility] [address] [place] [address] Pharmacist Pharmacy 04/21/20 Policy Writer Typist Relationship Specialty Start Date End Date Son Zambrano MD [address] [place] [address] PCP - General 05/13/02 Ellis Hernandez, [facility] [address] [place] [address] Pharmacist Pharmacy 04/21/20 Policy Writer Typist Relationship Specialty Start Date End Date Son Zambrano MD [address] [place] [address] PCP - General 05/13/02 Ellis Hernandez, [facility] [address] [place] [address] Pharmacist Pharmacy 04/21/20 Policy Writer Typist Relationship Specialty Start Date End Date Son Zambrano MD [address] [place] [address] PCP - General 05/13/02 Ellis Hernandez, [facility] [address] [place] [address] Pharmacist Pharmacy 04/21/20 Policy Writer Typist Relationship Specialty Start Date End Date Son Zambrano MD [address] [place] [address] PCP - General 05/13/02 Ellis Hernandez, [facility] [address] [place] [address] Pharmacist Pharmacy 04/21/20 Policy Writer Typist Relationship Specialty Start Date End Date Son Zambrano MD [address] [place] [address] PCP - General 05/13/02 [place]ce [place] [address] [place] [address] Pharmacist Pharmacy 04/27/22 Policy Writer Typist Relationship Specialty Start Date End Date Son Zambrano MD [address] [place] [address] PCP - General 05/13/02 Joce [place] [address] [place] [address] Pharmacist Pharmacy 04/27/22 Policy Writer Typist Relationship Specialty Start Date End Date Son Zambrano MD [address] [place] [address] PCP - General 05/13/02 [place]ce [place] [address] [place] [address] Pharmacist Pharmacy 04/27/22 Policy Writer Typist Relationship Specialty Start Date End Date Son Zambrano MD [address] [place] [address] PCP - General 05/13/02 Joce [place] [address] [place] [address] Pharmacist Pharmacy 04/27/22 Policy Writer Typist Relationship Specialty Start Date End Date Son Zambrano MD [address] [place] [address] PCP - General 05/13/02 [place]ce [place] [address] [place] [address] Pharmacist Pharmacy 04/27/22 Policy Writer Typist Relationship Specialty Start Date End Date Son Zambrano MD [address] [place] [address] PCP - General 05/13/02 [place]ce [place] [address] [place] [address] Pharmacist Pharmacy 04/27/22 Policy Writer Typist Relationship Specialty Start Date End Date Son Zambrano MD [address] [place] [address] PCP - General 05/13/02 [place] [address] [place] [address] Pharmacist Pharmacy 04/27/22 Policy Writer Typist Relationship Specialty Start Date End Date Son Zambrano MD [address] [place] [address] PCP - General 05/13/02 [place]ce [place] [address] [place] [address] Pharmacist Pharmacy 04/27/22 Policy Writer Typist Relationship Specialty Start Date End Date Son Zambrano MD [address] [place] [address] PCP - General 05/13/02 [place]ce [place] [address] [place] [address] Pharmacist Pharmacy 04/27/22 Policy Writer Typist Relationship Specialty Start Date End Date Son Zambrano MD [address] [place] [address] PCP - General 05/13/02 Belia, [place] [address] [place] [address] Pharmacist Pharmacy 04/27/22 Policy Writer Typist Relationship Specialty Start Date End Date Son Zambrano MD [address] [place] [address] PCP - General 05/13/02 Clarence, [place] [address] [place] [address] Pharmacist Pharmacy 04/27/22 Policy Writer Typist Relationship Specialty Start Date End Date Son Zambrano MD [address] [place] [address] PCP - General 05/13/02 BeliaMarissa butlerilyKathryn [place] [address] [place] [address] Pharmacist Pharmacy 04/27/22 Policy Writer Typist Relationship Specialty Start Date End Date Son Zambrano MD [address] [place] [address] PCP - General 05/13/02 ClarenceMarissa butlerilyK[place] [address] [place] [address] Pharmacist Pharmacy 04/27/22 Policy Writer Typist Relationship Specialty Start Date End Date Son Zambrano MD [address] [place] [address] PCP - General 05/13/02 [place]ce [place] [address] [place] [address] Pharmacist Pharmacy 04/27/22 Policy Writer Typist Relationship Specialty Start Date End Date Son Zambrano MD [address] [place] [address] PCP - General 05/13/02 [facility] [address] [place] [address] Pharmacist Pharmacy 05/17/23 Policy Writer Typist Relationship Specialty Start Date End Date Son Zambrano MD [address] [place] [address] PCP - General 05/13/02 [facility]icksSaint [facility] [address] [place] [address] Pharmacist Pharmacy 05/17/23 Policy Writer Typist Relationship Specialty Start Date End Date Son Zambrano MD [address] [place] [address] PCP - General 05/13/[address] [address] Pharmacist Pharmacy 04/27/22 05/16/23 Jessica Ricks, [facility] [address] [place] [address] Pharmacist Pharmacy 05/17/23 Policy Writer Typist Relationship Specialty Start Date End Date Son Zambraon MD [address] [place] [address] PCP - General 05/13/02 Joce Celaya, [facility] [address] [place] [address] Pharmacist Pharmacy 04/27/22 05/16/23 [facility] [address] [place] [address] Pharmacist Pharmacy 05/17/23 Policy Writer Typist Relationship Specialty Start Date End Date Son Zambrano MD [address] [place] [address] PCP - General 05/13/02 [facility] [address] [facility] [place] [address] Pharmacist Pharmacy 05/17/23 Policy Writer Typist Relationship Specialty Start Date End Date Son Zambrano MD [address] [place] [address] PCP - General 05/13/02 [facility] [address] [place] [address] Pharmacist Pharmacy 05/17/23 Policy Writer Typist Relationship Specialty Start Date End Date Son Zambrano MD [address] [place] [address] PCP - General 05/13/02 Jessica [facility] [address] [place] [address] Pharmacist Pharmacy 05/17/23 Policy Writer Typist Relationship Specialty Start Date End Date Son Zambrano MD [address] [place] [address] PCP - General 05/13/02 Jessica Ricks, [facility] [address] [place] [address] Pharmacist Pharmacy 05/17/23 Policy Writer Typist Relationship Specialty Start Date End Date Son Zambrano MD [address] [place] [address] PCP - General 05/13/02 Jessica Ricks, [facility] [address] [place] [address] Pharmacist Pharmacy 05/17/23 Policy Writer Typist Relationship Specialty Start Date End Date Son Zambrano MD [address] [place] [address] PCP - General 05/13/02 Jessica Ricks, [facility] [address] [place] [address] Pharmacist Pharmacy 05/17/23 Policy Writer Typist Relationship Specialty Start Date End Date Son Zambrano MD [address] [place] [address] PCP - General 05/13/02 Jessica Ricks, [facility] [address] [place] [address] Pharmacist Pharmacy 05/17/23 Policy Writer Typist Relationship Specialty Start Date End Date Son Zambrano MD [address] [facility] [place] [address] PCP - General 05/13/02 Jessica Ricks, [facility] [address] [place] [address] Pharmacist Pharmacy 05/17/23 Policy Writer Typist Relationship Specialty Start Date End Date Son Zambrano MD [address] [place] [address] PCP - General 05/13/02 [facility] [address] [place] [address] Pharmacist Pharmacy 05/17/23 Policy Writer Typist Relationship Specialty Start Date End Date Son Zambrano MD [address] [place] [address] PCP - General 05/13/02 [facility] [address] [place] [address] Pharmacist Pharmacy 05/17/23 Policy Writer Typist Relationship Specialty Start Date End Date Son Zambrano MD [address] [place] [address] PCP - General 05/13/02 [facility] [address] [place] [address] Pharmacist Pharmacy 05/17/23 Policy Writer Typist Relationship Specialty Start Date End Date Son Zambrano MD [address] [place] [address] PCP - General 05/13/02 [facility] [address] [place] [address] Pharmacist Pharmacy 05/17/23 Policy Writer Typist Relationship Specialty Start Date End Date Son Zambrano MD [address] [place] [address] PCP - General 05/13/02 Jessica Ricks, [facility] [address] [place] [place] [address] Pharmacist Pharmacy 05/17/23 Policy Writer Typist Relationship Specialty Start Date End Date Son Zambrano MD [address] [facility] [place] [address] PCP - General 05/13/02 Jessica Ricks, [facility] [address] [facility] [place] [address] Pharmacist Pharmacy 05/17/23 Policy Writer Typist Relationship Specialty Start Date End Date Son Zambrano MD [address] [facility] [place] [address] PCP - General 05/13/02 Jessica Ricks, [facility] [address] [facility] [place] [place] [address] Pharmacist Pharmacy 05/17/23 Policy Writer Typist Relationship Specialty Start Date End Date Son Zambrano MD [address] [facility] [place] [address] PCP - General 05/13/02 Jessica Ricks, [facility] [address] [facility] [place] [address] Pharmacist Pharmacy 05/17/23 Policy Writer Typist Relationship Specialty Start Date End Date Son Zambrano MD [address] [facility] [place] [address] PCP - General 05/13/02 [facility] [address] [facility] [place] [address] Pharmacist Pharmacy 05/17/23 Policy Writer Typist Relationship Specialty Start Date End Date Son Zambrano MD [address] [place] [address] PCP - General 05/13/02 Ellis Hernandez, [facility] [address] [facility] [place] [address] Pharmacist Pharmacy 04/21/20 04/26/22 Policy Writer Typist Relationship Specialty Start Date End Date Son Zambrano MD [address] [facility] [place] [address] PCP - General 05/13/02 [facility] [address] [facility] [place] [place] [address] Pharmacist Pharmacy 05/17/23 Policy Writer Typist Relationship Specialty Start Date End Date Son Zambrano MD [address] [facility] [address] PCP - General 05/13/02 [facility] [address] [facility] [place] [address] Pharmacist Pharmacy 05/17/23 Policy Writer Typist Relationship Specialty Start Date End Date Son Zambrano MD [address] [facility] [place] [address] PCP - General 05/13/02 [facility] [address] [facility] [place] [place] [address] Pharmacist Pharmacy 05/17/23 Policy Writer Typist Relationship Specialty Start Date End Date Son Zambrano MD [address] [place] [address] PCP - General 05/13/02 [facility] [address] [place] [address] Pharmacist Pharmacy 05/17/23 Policy Writer Typist Relationship Specialty Start Date End Date Son Zambrano MD [address] [place] [address] PCP - General 05/13/02 [facility] [address] [place] [address] Pharmacist Pharmacy 05/17/23 Jossy Caruso, GILL BOX FIXER.CAVALRY SCOUT [address] [place] [address] Health And Physical Education Professor Internal Medicine 06/30/24 Emilia Segovia, GILL BOX FIXER.YARD WORKER [address] [place] [address] Health And Physical Education Professor Internal Medicine 06/30/24 Policy Writer Typist Relationship Specialty Start Date End Date Son Zambrano MD [address] [place] [address] PCP - General 05/13/02 [facility] [address] [place] [address] Pharmacist Pharmacy 05/17/23 Jossy Caruso, GILL BOX FIXER.CAVALRY SCOUT [address] [place] [address] Health And Physical Education Professor Internal Medicine 06/30/24 Emilia Segovia APRN.YARD WORKER [address] [facility] [place] [address] Health And Physical Education Professor Internal Medicine 06/30/24 Policy Writer Typist Relationship Specialty Start Date End Date Son Zambrano MD [address] [place] [address] PCP - General 05/13/02 [facility] [address] [facility] [place] [address] Pharmacist Pharmacy 05/17/23 Jossy Caruso APRN.CAVALRY SCOUT [address] [place] [address] Health And Physical Education Professor Internal Medicine 06/30/24 Emilia Segovia APRN.YARD WORKER [address] [facility] [place] [address] Health And Physical Education Professor Internal Medicine 06/30/24 Policy Writer Typist Relationship Specialty Start Date End Date Son Zambrano MD [address] [place] [address] PCP - General 05/13/02 [facility] [address] [facility] [place] [address] Pharmacist Pharmacy 05/17/23 Jossy Caruso APRN.CAVALRY SCOUT [address] [place] [address] Health And Physical Education Professor Internal Medicine 06/30/24 Emilia Segovia APRN.YARD WORKER [address] [place] [address] Health And Physical Education Professor Internal Medicine 06/30/24 Policy Writer Typist Relationship Specialty Start Date End Date Son Zambrano MD [address] [place] [address] PCP - General 05/13/02 [facility] [address] [place] [address] Pharmacist Pharmacy 05/17/23 Jossy Caruso, GILL BOX FIXER.CAVALRY SCOUT [address] [place] [address] Health And Physical Education Professor Internal Medicine 06/30/24 Emilia Segovia GILL BOX FIXER.YARD WORKER [address] [place] [address] Health And Physical Education Professor Internal Medicine 06/30/24 Policy Writer Typist Relationship Specialty Start Date End Date Son Zambrano MD [address] [place] [address] PCP - General 05/13/02 [facility] [address] [place] [address] Pharmacist Pharmacy 05/17/23 Jossy Caruso GILL BOX FIXER.CAVALRY SCOUT [address] [place] [address] Health And Physical Education Professor Internal Medicine 06/30/24 Emilia Segovia APRN.YARD WORKER [address] [place] [address] Health And Physical Education Professor Internal Medicine 10/14/24 Policy Writer Typist Relationship Specialty Start Date End Date Son Zambrano MD [address] [place] [address] PCP - General 05/13/02 [facility] [address] [place] [address] Pharmacist Pharmacy 05/17/23 Jossy Caruso, GILL BOX FIXER.CAVALRY SCOUT [address] [place] [address] Health And Physical Education Professor Internal Medicine 06/30/24 Emilia Segovia GILL BOX FIXER.YARD WORKER [address] [place] [address] Health And Physical Education Professor Internal Medicine 10/14/24 Policy Writer Typist Relationship Specialty Start Date End Date Son Zambrano MD [address] [place] [address] PCP - General 05/13/02 [facility] [address] [place] [address] Pharmacist Pharmacy 05/17/23 Jossy Caruso, GILL BOX FIXER.CAVALRY SCOUT [address] [place] [address] Health And Physical Education Professor Internal Medicine 06/30/24 Emilia Segovia GILL BOX FIXER.YARD WORKER [address] [place] [address] Health And Physical Education Professor Internal Medicine 10/14/24 Policy Writer Typist Relationship Specialty Start Date End Date Son Zambrano MD [address] [place] [address] PCP - General 05/13/02 [facility] [address] [place] [address] Pharmacist Pharmacy 05/17/23 Jossy Caruso APRN.CAVALRY SCOUT [address] [place] [address] Health And Physical Education Professor Internal Medicine 06/30/24 Emilia Segovia APRN.YARD WORKER [address] [place] [address] Health And Physical Education Professor Internal Medicine 06/30/24 10/10/24 Emilia Segovia APRN.YARD WORKER [address] [place] [address] Health And Physical Education Professor Internal Medicine 10/14/24 Policy Writer Typist Relationship Specialty Start Date End Date Son Zambrano MD [address] [place] [address] PCP - General 05/13/02 [facility] [address] [place] [address] Pharmacist Pharmacy 05/17/23 Emilia Segovia APRN.YARD WORKER [address] [place] [address] Health And Physical Education Professor Internal Medicine 10/14/24 Jossy Caruso GILL BOX FIXER.CAVALRY SCOUT [address] [place] [address] Health And Physical Education Professor Internal Medicine 12/10/24 Policy Writer Typist Relationship Specialty Start Date End Date Son Zambrano MD [address] [place] [address] PCP - General 05/13/02 [facility] [address] [place] [address] Pharmacist Pharmacy 05/17/23 Emilia Segovia, GILL BOX FIXER.YARD WORKER [address] [place] [address] Health And Physical Education Professor Internal Medicine 10/14/24 Jossy Caruso, GILL BOX FIXER.CAVALRY SCOUT [address] [place] [address] Health And Physical Education Professor Internal Medicine 12/10/24 Policy Writer Typist Relationship Specialty Start Date End Date Son Zambrano MD [address] [place] [address] PCP - General 05/13/02 [facility] [address] [place] [address] Pharmacist Pharmacy 05/17/23 Emilia Segovia, GILL BOX FIXER.YARD WORKER [address] [place] [address] Health And Physical Education Professor Internal Medicine 10/14/24 Jossy aCruso, GILL BOX FIXER.CAVALRY SCOUT [address] [place] [address] Health And Physical Education Professor Internal Medicine 12/10/24 Policy Writer Typist Relationship Specialty Start Date End Date Son Zambrano MD [address] [place] [address] PCP - General 05/13/02 [facility] [address] [place] [address] Pharmacist Pharmacy 05/17/23 Emilia Segovia APRN.YARD WORKER [address] [place] [address] Health And Physical Education Professor Internal Medicine 10/14/24 Jossy Caruso, GILL BOX FIXER.CAVALRY SCOUT [address] [place] [address] Health And Physical Education Professor Internal Medicine 12/10/24 Policy Writer Typist Relationship Specialty Start Date End Date Son Zambrano MD [address] [place] [address] PCP - General 05/13/02 [facility] [address] [place] [address] Pharmacist Pharmacy 05/17/23 Emilia Segovia APRN.YARD WORKER [address] [place] [address] Health And Physical Education Professor Internal Medicine 10/14/24 Jossy Caruso, GILL BOX FIXER.CAVALRY SCOUT [address] [place] [address] Health And Physical Education Professor Internal Medicine 12/10/24 Policy Writer Typist Relationship Specialty Start Date End Date Son Zambrano MD [address] [place] [address] PCP - General 05/13/02 [facility] [address] [place] [address] Pharmacist Pharmacy 05/17/23 Emilia Segovia APRN.YARD WORKER [address] [place] [address] Health And Physical Education Professor Internal Medicine 10/14/24 Jossy Caruso APRN.CAVALRY SCOUT [address] [place] [address] Health And Physical Education Professor Internal Medicine 12/10/24 Policy Writer Typist Relationship Specialty Start Date End Date Son Zambrano MD [address] [place] [address] PCP - General 05/13/02 Jessica Ricks [facility] [address] [place] [address] Pharmacist Pharmacy 05/17/23 Emilia Segovia GILL BOX FIXER.YARD WORKER [address] [place] [address] Health And Physical Education Professor Internal Medicine 10/14/24 Jossy Caruso APRN.CAVALRY SCOUT [address] [place] [address] Health And Physical Education Professor Internal Medicine 12/10/24 Policy Writer Typist Relationship Specialty Start Date End Date Son Zambrano MD [address] [place] [address] PCP - General 05/13/02 Jessica Ricks [facility] [address] [place] [address] Pharmacist Pharmacy 05/17/23 Emilia Segovia GILL BOX FIXER.YARD WORKER [address] [place] [address] Health And Physical Education Professor Internal Medicine 10/14/24 Jossy aCruso, GILL BOX FIXER.CAVALRY SCOUT [address] [place] [address] Health And Physical Education Professor Internal Medicine 12/10/24 Policy Writer Typist Relationship Specialty Start Date End Date Son Zambrano MD [address] [place] [address] PCP - General 05/13/02 [facility] [address] [place] [address] Pharmacist Pharmacy 05/17/23 Emilia Segovia GILL BOX FIXER.YARD WORKER [address] [place] [address] Health And Physical Education Professor Internal Medicine 10/14/24 Jossy Caruso, GILL BOX FIXER.CAVALRY SCOUT [address] [place] [address] Health And Physical Education Professor Internal Medicine 12/10/24 Policy Writer Typist Relationship Specialty Start Date End Date Son Zambrano MD [address] [place] [address] PCP - General 05/13/02 [facility] [address] [place] [address] Pharmacist Pharmacy 05/17/23 Emilia Segovia GILL BOX FIXER.YARD WORKER [address] [place] [address] Health And Physical Education Professor Internal Medicine 10/14/24 Jossy Caruso, GILL BOX FIXER.CAVALRY SCOUT [address] [place] [address] Health And Physical Education Professor Internal Medicine 12/10/24 Policy Writer Typist Relationship Specialty Start Date End Date Son Zambrano MD [address] [place] [address] PCP - General 05/13/02 [facility] [address] [place] [address] Pharmacist Pharmacy 05/17/23 Emilia Segovia GILL BOX FIXER.YARD WORKER [address] [place] [address] Health And Physical Education Professor Internal Medicine 10/14/24 Jossy Caruso APRN.CAVALRY SCOUT [address] [place] [address] Health And Physical Education Professor Internal Medicine 12/10/24 Bruce Lauren, RN [address] [place] [address] Primary Care Pcb Designer 03/20/25 Policy Writer Typist Relationship Specialty Start Date End Date Son Zambrano MD [address] [place] [address] PCP - General 05/13/02 [facility] [address] [place] [address] Pharmacist Pharmacy 05/17/23 Emilia Segovai APRN.YARD WORKER [address] [place] [address] Health And Physical Education Professor Internal Medicine 10/14/24 Jossy Caruso APRN.CAVALRY SCOUT [address] [place] [address] Health And Physical Education Professor Internal Medicine 12/10/24 Bruce Lauren, SANIYA [address] [place], [place] [id number] Primary Care Pcb Designer 03/20/25 Policy Writer Typist Relationship Specialty Start Date End Date Son Zambrano MD [address] [place] [address] PCP - General 05/13/02 [facility] [address] [place] [place] [address] Pharmacist Pharmacy 05/17/23 Emilia Segovia APRN.YARD WORKER [address] [place] [address] Health And Physical Education Professor Internal Medicine 10/14/24 Jossy Caruso APRN.CAVALRY SCOUT [address] [place] [address] Health And Physical Education Professor Internal Medicine 12/10/24 Bruce Lauren RN [address] [place] [address] Primary Care Pcb Designer 03/20/25 Policy Writer Typist Relationship Specialty Start Date End Date Son Zambrano MD [address] [place] [address] PCP - General 05/13/02 [facility] [address] [place] [address] Pharmacist Pharmacy 05/17/23 Emilia Segovia APRN.YARD WORKER [address] [place] [address] Health And Physical Education Professor Internal Medicine 10/14/24 Jossy Caruso APRN.CAVALRY SCOUT [address] [place] [address] Health And Physical Education Professor Internal Medicine 12/10/24 Bruce Lauren, RN [address] [place] [address] Primary Care Pcb Designer 03/20/25 Goals (unrecognized section and content) Goals may be documented in a n alternate section (unrecognized sect ion and content) No Status Records FoundNo Status Records FoundNo Status Records FoundNo Status Records Found INFORMATION SOURCE (unrecogn ized section and content) DATE CREATED AUTHOR 03/27/2024 [facility] DATE CREATED AUTHOR AUTHOR'S ORGANIZ ATION 05/05/2024 [facility] DATE CREATED AUTHOR AUTHOR'S ORGANIZ ATION 03/22/2025 [facility] DATE CREATED AUTHOR AUTHOR'S ORGANIZ ATION 03/22/2025 [facility] FOR RECORDS PERTAINING TO PATIENTS WHO ARE OR HAVE BEEN ENROLLED IN A CHEMICAL DEPENDENCY/SUBSTANCEABUSE PROGRAM, SOME INFORMATION MAY BE OMITTED. This clinical summary was aggregated from multiple sources. Caution should be exercised in using it in the provision of clinical care. This summary normalizes information from multiple sources, and as a consequence, information in this document may materially change the coding, format and clinical context of patient data. In addition, data may be omitted in some cases. CLINICAL DECISIONS SHOULD BE BASED ON THE PRIMARY CLINICAL RECORDS. [facility]. provides no warranty or guarantee of the accuracy or completeness of information in this document.
[2025-03-26 04:05] LABS: Mucous, Urine 0 SEEN /hpf (<or=2+); Squamous Epithelial Cells - UA 0 SEEN /hpf (0-5)
[2025-03-26 04:10] LABS: Red Blood Cells-Urine 25-50 SEEN /hpf (0-5); Urine Bilirubin Dipstick 1 mg/dL (Negative)
[2025-03-26 04:33] VITALS: BP 162/80; PULSE 77; RESP 18; TEMP 37; O2SAT 96
== END 2025-03-26 04:33 | disposition home or self-care (01) ==
PROVIDERS: Emergency Provider Emergency Medicine; PCP Internal Medicine; Visit Provider Emergency Medicine
DX: N39.0 Urinary tract infection, site not specified (principal); E11.9 Type 2 diabetes mellitus without complications; Z79.4 Long term (current) use of insulin; I10 Essential (primary) hypertension; R33.9 Retention of urine, unspecified; K21.9 Gastro-esophageal reflux disease without esophagitis; J45.909 Unspecified asthma, uncomplicated; Z79.85 Long-term (current) use of injectable non-insulin antidiabetic drugs; Z98.890 Other specified postprocedural states
CPT/HCPCS: 51702; 81001; 82962; 87077; 87086; 87088; 87186; 99283